=== PATIENT | female | born 1975 | race Two or more races ===

== ENCOUNTER → 2021-11-01 10:46 | Outpatient (BNVA) | payer MEDICAID, SELFPAY | PROVIDERS: PCP Family Medicine; Referring Provider Family Medicine; Visit Provider Physician Assistant Surgical | DX: Z13.89 Encounter for screening for other disorder (principal) ==

== ENCOUNTER → 2021-11-03 08:22 | Outpatient (BNVA) | payer MEDICAID, SELFPAY | PROVIDERS: PCP Family Medicine; Visit Provider Surgery | DX: Z13.89 Encounter for screening for other disorder (principal) ==

== ENCOUNTER → 2021-11-09 10:24 | Outpatient (BNVA) | payer MEDICAID, SELFPAY | PROVIDERS: PCP Family Medicine; Visit Provider Surgery | DX: Z01.818 Encounter for other preprocedural examination (principal); E66.01 Morbid (severe) obesity due to excess calories; E11.9 Type 2 diabetes mellitus without complications; I10 Essential (primary) hypertension; K21.9 Gastro-esophageal reflux disease without esophagitis; J45.909 Unspecified asthma, uncomplicated; Z68.42 Body mass index [BMI] 45.0-49.9, adult; Z79.4 Long term (current) use of insulin; Z79.84 Long term (current) use of oral hypoglycemic drugs | CPT/HCPCS: 99202 ==

== ENCOUNTER 2021-11-21 23:30 | Emergency (ER) | payer MEDICAID, SELFPAY ==
[2021-11-21 23:56] VITALS: BP 120/80; BP 142/92; PULSE 101; PULSE 89; RESP 22; TEMP 36.8; O2SAT 10; O2SAT 99; BMI 48.4
[2021-11-22 00:21] LABS: Hematocrit 41.8 % (37.0-47.0); Hemoglobin 13.9 g/dl (12.0-16.0); Mean Corpuscular HGB Conc 33.3 g/dl (31.0-35.0); Mean Corpuscular Hemoglobin 27.3 pg (27.0-33.0); Mean Platelet Volume 10.9 fL (9.4-12.3); Platelet Count 321 X10*3/uL (160-400); Red Cell Distribution Width 14.9 % (11.0-16.0); White Blood Count 10.5 X10*3/uL (4.8-10.8)
[2021-11-22 00:30] LABS: Appearance Urine CLOUDY; Color Urine YELLOW; Glucose Urine UA NEG (NEG); Leukocyte Esterase Urine NEG (NEG); Nitrite Urine POS (NEG); PH 5.5 (5.0-8.0); Specific Gravity - Urine >= 1.030 (1.005-1.025); UACC Culture Trigger YES; Urine Blood 2+ (NEG); Urine Ketones 5 MG/DL (NEG); Urine Protein 1+ MG/DL (NEG-TRACE)
[2021-11-22 00:36] LABS: Bacteria Urine 3+ /LPF; Mucus Urine 2+ /LPF; RBC Urine 0 /HPF (0); Squamous Epithelial Cell Urine 4+ /LPF; UACC CULT YES
[2021-11-22 00:37] LABS: Alanine Aminotransferase 45 U/L (0-31); Albumin Level 3.8 g/dL (3.5-5.0); Alkaline Phosphatase 92 U/L (39-117); Anion Gap 14 (12-20); Aspartate Amino Transferase 43 U/L (5-31); Bilirubin Total 0.4 mg/dL (0.0-1.0); Blood Urea Nitrogen 10 mg/dL (9-16); Calcium 9.9 mg/dL (8.4-10.2); Carbon Dioxide 28 mmol/L (22-29); Chloride 103 mmol/L (96-108); Creatinine Clr Calc Pharmacy 75.8; Estimated Glomerular Filt Rate > 60; Glucose Random 247 mg/dL (60-115); Potassium 3.9 mmol/L (3.3-5.1); Sodium 141 mmol/L (135-145); Total Protein 7.6 g/dL (6.5-8.0)
[2021-11-22 01:03] VITALS: BP 139/82; PULSE 81; RESP 19; O2SAT 97
--- NOTE | 2021-11-22 01:03 | ED_ITS ---
HPI - General Adult General Chief complaint: General Medical Stated complaint: right leg pain Time Seen by Provider: 11/22/21 00:01 Source: patient Mode of arrival: ambulatory Limitations: no limitations History of Present Illness HPI narrative: Patient diabetic with diabetic neuropathy on gabapentin 1200 mg 3 times a day comes here for his pain in the right leg similar to that in the past says gabapentin is not working. No significant swelling of the leg no fever no shortness of breath no cough no urinary complaints no nausea no vomiting patient denies any hematuria Related Data Home Medications Medication Instructions Recorded Confirmed alcohol swabs (Alcohol Prep Pads) 0 pad TOPICAL DIRECTED 11/01/21 11/09/21 blood sugar diagnostic (FreeStyle #10 ea 11/01/21 11/09/21 Lite Strips) blood-glucose meter (FreeStyle #1 ea 11/01/21 11/09/21 [place] Lite) clonazepam 0.5 mg tablet 0.5 mg PO DAILY 11/01/21 11/09/21 clonidine HCl 0.2 mg tablet 0.2 mg PO BID 11/01/21 11/09/21 doxazosin 1 mg tablet 2 mg PO DAILY 11/01/21 11/09/21 dulaglutide 1.5 mg/0.5 mL mg SUBCUT QWEEK 11/01/21 11/09/21 [facility] duloxetine 30 mg capsule,delayed 30 mg PO DAILY 11/01/21 11/09/21 release fluticasone propionate 110 2 puff PO BID 11/01/21 11/09/21 mcg/actuation HFA aerosol inhaler (Flovent HFA) folic acid 1 mg tablet 1 mg PO DAILY 11/01/21 11/09/21 gabapentin 600 mg tablet 1,200 mg PO TID 11/01/21 11/09/21 insulin glargine 100 unit/mL (3 unit SUBCUT 11/01/21 11/09/21 mL) subcutaneous pen (Lantus Solostar U-100 Insulin) levetiracetam 1,000 mg tablet 1,000 mg PO BID 11/01/21 11/09/21 lisinopril 40 mg tablet 40 mg PO DAILY 11/01/21 11/09/21 magnesium oxide 400 mg (241.3 mg 400 mg PO BID 11/01/21 11/09/21 magnesium) tablet melatonin 5 mg tablet 5 mg PO BEDTIME 11/01/21 11/09/21 metformin 1,000 mg tablet 1,000 mg PO BID 11/01/21 11/09/21 multivitamin-ferrous 1 tab PO QAM 11/01/21 11/09/21 fumarate-folic acid 18 mg-400 mcg tablet (Certavite-Antioxidant) omeprazole 20 mg capsule,delayed 20 mg PO DAILY 11/01/21 11/09/21 release omeprazole 20 mg capsule,delayed 20 mg PO DAILY 11/01/21 11/09/21 release pen needle, diabetic 31 gauge x #50 ea 11/01/21 11/09/21/ (Sure Comfort Pen Needle) ropinirole 0.5 mg tablet 0.5 mg PO BEDTIME 11/01/21 11/09/21 thiamine HCl (vitamin B1) 100 mg 100 mg PO DAILY 11/01/21 11/09/21 tablet insulin aspart U-100 100 unit/mL 5 unit SUBCUT TID 11/09/21 11/09/21 (3 mL) subcutaneous pen (Novolog Flexpen U-100 Insulin aspart) Previous Rx's Medication Instructions Recorded cefpodoxime 200 mg tablet 200 mg PO BID #14 tab 11/22/21 tramadol 50 mg tablet 50 mg PO Q6H PRN #20 tab 11/22/21 Allergies Allergy/AdvReac Type Severity Reaction Status Date / Time tomato [TOMATO] Allergy Unknown RASH Verified 11/09/21 14:34 Review of Systems Review of Systems: Yes all other systems are reviewed and are negative [facility] Past Medical History Medical History Anxiety Asthma Depression GERD (gastroesophageal reflux disease) Hx of completed stroke Hypertension Insomnia Insulin dependent type 2 diabetes mellitus Morbid obesity Neuropathy Restless leg syndrome Seizure Stroke Surgical History History of Family History Family History Mother Diabetes Father Diabetes Alcoholism Social History Social History Alcohol intake: former Patient Tobacco Use Status: Former Tobacco user Physical Exam ED Vital Signs: Vital Signs - 24 hr 11/21/21 23:56 11/22/21 01:03 Temperature 98.2 F Pulse Rate 89 81 Respiratory Rate 22 H 19 Blood Pressure 142/92 H 139/82 Pulse Oximetry 99 97 BMI result Body Mass Index 48.4 Appearance: Alert. Oriented X3. No acute distress. ENT: Pharynx normal. Oral Mucosa moist Neck: Normal inspection. Neck supple. CVS: Normal heart rate and rhythm. Pulses normal. Respiratory: No respiratory distress. Equal air entry bilateral, no wheezing/rales/rhonchi Abdomen: Soft and nontender. Bowel sounds are present, no mass palpable, no CVA tenderness Skin: Skin warm and dry. Normal skin color. Normal skin turgor. Extremities: trace lower extremity edema. No calf tenderness Neuro: Oriented X 3. No motor deficit. No sensory deficit.No cerebellar signs , cranial nerves II-XII intact Medical Decision Making MDM Narrative Medical decision making narrative: Patient with peripheral neuropathy secondary to diabetes on gabapentin comes here for right leg pain similar to that in the past will give her tramadol adversity and gabapentin. Patient also noticed to have UTI but she does not have any symptoms WBC count normal with started on cefpodoxime Lab Data Lab results reviewed: Yes I reviewed the patient's lab results. Result diagrams: 11/22/21 00:17 11/22/21 00:13 Labs: Lab Results 11/22/21 11/22/21 11/22/21 Range/Units 00:13 00:17 00:23 WBC 10.5 (4.8-10.8) X10*3/uL RBC 5.10 (4.20-5.50) X10*6/uL Hgb 13.9 (12.0-16.0) g/dl Hct 41.8 (37.0-47.0) % MCV 82.0 (80.0-98.0) fL MCH 27.3 (27.0-33.0) pg MCHC 33.3 (31.0-35.0) g/dl RDW 14.9 (11.0-16.0) % Plt Count 321 (160-400) X10*3/uL MPV 10.9 (9.4-12.3) fL Absolute Nucleated RBC 0.000 (0.0-0.012) X10*3/uL Nucleated RBC % (auto) 0.0 (0.0-0.2) /100WBC Sodium 141 (135-145) mmol/L Potassium 3.9 (3.3-5.1) mmol/L Chloride 103 (96-108) mmol/L Carbon Dioxide 28 (22-29) mmol/L Anion Gap 14 (12-20) BUN 10 (9-16) mg/dL Creatinine 0.92 (0.5-1.4) mg/dL Estim Creat Clear Calc 75.8 Estimated GFR > 60 Random Glucose 247 H (60-115) mg/dL Calcium 9.9 (8.4-10.2) mg/dL Total Bilirubin 0.4 (0.0-1.0) mg/dL AST 43 H (5-31) U/L ALT 45 H (0-31) U/L Alkaline Phosphatase 92 (39-117) U/L Total Protein 7.6 (6.5-8.0) g/dL Albumin 3.8 (3.5-5.0) g/dL Urine Color YELLOW Urine Appearance CLOUDY Urine pH 5.5 (5.0-8.0) Ur Specific [place] >= 1.030 H (1.005-1.025) Urine Protein 1+ H (NEG-TRACE) MG/DL Urine Glucose (UA) NEG (NEG) MG/DL Urine Ketones 5 (NEG) MG/DL Urine Blood 2+ H (NEG) Urine Nitrite POS H (NEG) Ur Leukocyte Esterase NEG (NEG) Urine RBC 0 (0) /HPF Urine WBC 10-14 H (0-4) /HPF Ur Squamous Epith Cells 4+ /LPF Urine Bacteria 3+ /LPF Urine Mucus 2+ /LPF Discharge Plan Discharge Clinical Impression: Neuropathy, UTI (urinary tract infection) Patient Disposition: Home, Self-Care Instructions: Urinary Tract Infection in Women (DC), Peripheral Neuropathy (ED) Additional Instructions: Continue to take your gabapentin Start taking tramadol for severe pain Drink plenty of fluids and start taking antibiotic for UTI Follow your PCP Prescriptions: New cefpodoxime 200 mg tablet 200 mg PO BID Qty: 14 0RF Rx Instructions: must administer with a meal/food tramadol 50 mg tablet 50 mg PO Q6H PRN (Reason: pain) Qty: 20 0RF No Action insulin aspart U-100 [Novolog Flexpen U-100 Insulin] 100 unit/mL (3 mL) insulin pen 5 unit subcut TID 0RF omeprazole 20 mg capsule,delayed release(DR/EC) 20 mg PO DAILY 0RF (DME) blood-glucose meter [FreeStyle [place] Lite] Kit See Rx Instructions ea Not Applicable DAILY Qty: 1 0RF Rx Instructions: As directed levetiracetam 1,000 mg tablet 1,000 mg PO BID 0RF omeprazole 20 mg capsule,delayed release(DR/EC) 20 mg PO DAILY 0RF thiamine HCl (vitamin B1) 100 mg tablet 100 mg PO DAILY 0RF doxazosin 1 mg tablet 2 mg PO DAILY 0RF (DME) FreeStyle Lite Strips Strip See Rx Instructions ea Not Applicable TID Qty: 10 0RF Rx Instructions: As directed Lantus Solostar U-100 Insulin 100 unit/mL (3 mL) insulin pen subcut 0RF duloxetine 30 mg capsule,delayed release(DR/EC) 30 mg PO DAILY 0RF alcohol swabs [Alcohol Prep Pads] Pads, Medicated 0 pad topical DIRECTED 0RF magnesium oxide 400 mg (241.3 mg magnesium) tablet 400 mg PO BID 0RF Certavite-Antioxidant 18-400 mg-mcg tablet 1 tab PO QAM 0RF folic acid 1 mg tablet 1 mg PO DAILY 0RF Trulicity 1.5 mg/0.5 mL pen injector subcut QWEEK 0RF clonidine HCl 0.2 mg tablet 0.2 mg PO BID 0RF melatonin 5 mg tablet 5 mg PO BEDTIME 0RF ropinirole 0.5 mg tablet 0.5 mg PO BEDTIME 0RF Flovent HFA 110 mcg/actuation HFA aerosol inhaler 2 puff PO BID 0RF lisinopril 40 mg tablet 40 mg PO DAILY 0RF metformin 1,000 mg tablet 1,000 mg PO BID 0RF gabapentin 600 mg tablet 1,200 mg PO TID 0RF clonazepam 0.5 mg tablet 0.5 mg PO DAILY 0RF (DME) pen needle, diabetic [Sure Comfort Pen Needle] 31 gauge x 3/16 needle See Rx Instructions ea .ROUTE BID Qty: 50 0RF Rx Instructions: As directed
[2021-11-22] MEDS: oxyCODONE HCl Immed Release 5 MG TABLET 10 MG PO (01:29)
[2021-11-22 04:25] VITALS: BP 144/91; PULSE 78; RESP 16; TEMP 36.6; O2SAT 98
[2021-11-22 06:02] VITALS: BP 128/79; PULSE 81; RESP 15; O2SAT 95
== END 2021-11-22 09:10 | disposition home or self-care (01) ==
LOC: HO.ED 11-22 01:37
PROVIDERS: Emergency Provider Internal Medicine; PCP Family Medicine
DX: E11.42 Type 2 diabetes mellitus with diabetic polyneuropathy (principal); N39.0 Urinary tract infection, site not specified; I10 Essential (primary) hypertension; J45.909 Unspecified asthma, uncomplicated; Z86.73 Personal history of transient ischemic attack (TIA), and cerebral infarction without residual deficits; Z79.899 Other long term (current) drug therapy
CPT/HCPCS: 36415; 80053; 81001; 85027; 87086; 99283; 99284

== ENCOUNTER 2021-11-27 10:13 | Outpatient (REF) | payer MEDICAID, SELFPAY ==
--- NOTE | ~2021-11-27 | XR_ITS ---
EXAMINATION: XR CHEST CLINICAL INFORMATION: Moderate obesity due to excess calories. COMPARISON: None TECHNIQUE: 2 views of the chest were obtained. FINDINGS: The lungs are fairly well-expanded and clear of acute process. The heart size and pulmonary vascularity is normal. There is mild spondylosis mid dorsal spine. No lytic process. XR/XR chest 2V IMPRESSION: Unremarkable chest exam.
--- NOTE | 2021-11-27 10:33 | ECG_ITS ---
Test Reason : OBESITY Blood Pressure : / mmHG Vent. Rate : 078 BPM Atrial Rate : 078 BPM P-R Int : 160 ms QRS Dur : 090 ms QT Int : 390 ms P-R-T Axes : 044 017 000 degrees QTc Int : 444 ms Sinus rhythm with occasional Premature ventricular complexes Otherwise normal ECG When compared with ECG of 31-OCT-2017 16:32, Premature ventricular complexes are now Present Referred By: Ryan Hitchcock Electronically Signed By:NIGHAT COLEMAN MD
[2021-11-27 10:41] LABS: MANUAL DIFF FLAG NO
[2021-11-27 11:08] LABS: Basophils Absolute Auto 0.1 X10*3/uL (0.0-0.2); Basophils Percent Auto 0.8 % (0-2); Eosinophils Absolute Auto 0.2 X10*3/uL (0.0-0.4); Eosinophils Percent Auto 1.9 % (0-4); Hematocrit 40.2 % (37.0-47.0); Hemoglobin 12.9 g/dl (12.0-16.0); Imm Gran Abs Auto 0.05 X10*3/uL (0.00-0.03); Imm Gran Pct Auto 0.6 % (0.0-0.4); Lymphocytes Absolute Auto 2.7 X10*3/uL (1.2-4.9); Lymphocytes Percent Auto 31.5 % (20-40); Mean Corpuscular HGB Conc 32.1 g/dl (31.0-35.0); Mean Corpuscular Hemoglobin 27.2 pg (27.0-33.0); Mean Corpuscular Volume 84.6 fL (80.0-98.0); Mean Platelet Volume 11.6 fL (9.4-12.3); Monocytes Absolute Auto 0.5 X10*3/uL (0.1-1.2); Monocytes Percent Auto 5.9 % (2-11); Neutrophils Percent Auto 59.3 % (45-73); Platelet Count 308 X10*3/uL (160-400); Red Blood Count 4.75 X10*6/uL (4.20-5.50); Red Cell Distribution Width 14.9 % (11.0-16.0); White Blood Count 8.5 X10*3/uL (4.8-10.8)
[2021-11-27 11:19] LABS: Estimated Average Glucose 183 mg/dL
[2021-11-27 11:47] LABS: Alanine Aminotransferase 36 U/L (0-31); Albumin Level 3.6 g/dL (3.5-5.0); Alkaline Phosphatase 101 U/L (39-117); Anion Gap 12 (12-20); Aspartate Amino Transferase 41 U/L (5-31); Bilirubin Total 0.2 mg/dL (0.0-1.0); Blood Urea Nitrogen 11 mg/dL (9-16); C Reactive Protein 2.05 mg/dL (< or = 0.50); Carbon Dioxide 25 mmol/L (22-29); Chloride 106 mmol/L (96-108); Cholesterol 142 mg/dL; Estimated Glomerular Filt Rate > 60; Glucose Random 196 mg/dL (60-115); HDL Cholesterol 41 mg/dL; Iron 73 mcg/dL (30-160); LDL Cholesterol Calculated 77 mg/dl; Percent Iron Saturation 26 % (15-50); Potassium 4.2 mmol/L (3.3-5.1); Sodium 139 mmol/L (135-145); Total Iron Binding Capacity 280 mcg/dL (228-428); Total Protein 7.1 g/dL (6.5-8.0); Triglycerides 124 mg/dL; Unsaturated Iron Binding 207 ug/dL
[2021-11-27 12:01] LABS: Ferritin 36 ng/mL (10-250); TSH reflex Free T4 0.58 uIU/mL (0.32-4.0)
[2021-11-27 12:21] LABS: Folate > 20.0 ng/mL (> or = 4.0); Vitamin B12 662 pg/mL (200-900)
[2021-11-27 12:35] LABS: Insulin 101 uU/mL (2-29)
[2021-11-28 12:42] LABS: Calcium (PTHI) 8.7 mg/dL (8.6-10.2); PTHI 64 pg/mL (16-77)
[2021-11-30 06:12] LABS: Zinc 54 mcg/dL (60-130)
[2021-11-30 19:42] LABS: Vitamin A 32 mcg/dL (38-98)
[2021-12-02 12:20] LABS: Vitamin B1 123 nmol/L (8-30)
== END 2021-11-27 10:14 | disposition home or self-care (01) ==
LOC: HO.XRAY 10:13
PROVIDERS: PCP Family Medicine; Visit Provider Surgery
DX: Z01.818 Encounter for other preprocedural examination (principal); E66.01 Morbid (severe) obesity due to excess calories; K21.9 Gastro-esophageal reflux disease without esophagitis; E11.9 Type 2 diabetes mellitus without complications; I10 Essential (primary) hypertension; I63.9 Cerebral infarction, unspecified; J45.909 Unspecified asthma, uncomplicated; Z79.4 Long term (current) use of insulin
CPT/HCPCS: 36415; 71046; 80053; 80061; 82306; 82607; 82728; 82746; 83036; 83525; 83540; 83970; 84425; 84443; 84590; 84630; 85025; 86140; 93005

== ENCOUNTER → 2021-12-08 07:58 | Outpatient (BNVA) | payer MEDICAID, SELFPAY | PROVIDERS: PCP Family Medicine; Visit Provider Dietitian, Registered | DX: Z13.89 Encounter for screening for other disorder (principal) ==

== ENCOUNTER → 2021-12-12 11:00 | Outpatient (BNVA) | payer OTHER, SELFPAY | PROVIDERS: PCP Family Medicine; Visit Provider Counselor Mental Health | DX: F50.81 Binge eating disorder (principal); F32.9 Major depressive disorder, single episode, unspecified; E66.01 Morbid (severe) obesity due to excess calories | CPT/HCPCS: 90791 ==

== ENCOUNTER 2022-04-02 04:15 | Inpatient (IN) | payer MEDICAID, SELFPAY ==
[2022-04-02] VITALS (8 sets, daily range): BP systolic 135–177; BP diastolic 77–99; PULSE 72–89; RESP 13–20; TEMP 36.7–37; O2SAT 96–100; BMI 49.3
--- NOTE | ~2022-04-02 | NM_ITS ---
EXAMINATION: BILIARY TRACT IMAGING STUDY CLINICAL INFORMATION: Right upper quadrant pain, abnormal ultrasound.. COMPARISON: No previous biliary scan is available for comparison. Abdominal ultrasound and CT scan of the abdomen and pelvis, both dated 04/02/2022, the same date as this biliary scan are available for comparison.. TECHNIQUE: Serial gamma scintillation camera images were obtained over the abdomen for a total observation period of 5 hours following the intravenous administration of 4.8 mCi Tc-99m Mebrofenin. FINDINGS: There is good concentration of activity in the liver by 5 minutes post injection. There is no visualization of biliary activity during the initial 60 minutes. Subsequently, there is visualization of progressively increasing small bowel activity during an additional hour of imaging which was begun approximately 90 minutes post injection. At the end of this time, approximately 2.5 hours post injection diffuse small bowel activity is visualized but there is abnormal diffuse retention of activity in the liver. Delayed images obtained at 5 hours post injection show good visualization of activity in the gallbladder and diffuse small bowel activity but continued persistence of activity within the liver diffusely. NM/NM hepatobiliary wo pharm IMPRESSION: Visualization the gallbladder is evidence of a patent cystic duct and strong evidence against the diagnosis of acute cholecystitis. However, the very late visualization of the gallbladder, well after more than 2 hours postinjection is abnormal and most likely due to chronic cholecystitis. The common bile duct is patent. Delayed visualization of biliary activity as well as prolonged retention of activity in the liver are abnormal and most likely due to diffuse hepatocellular disease.
--- NOTE | ~2022-04-02 | US_ITS ---
EXAMINATION: US ABDOMEN LIMITED CLINICAL INFORMATION: Right upper quadrant pain. COMPARISON: CT abdomen pelvis 10/31/2017 TECHNIQUE: Real-time imaging of the right upper quadrant abdominal viscera. FINDINGS: PANCREAS: Visualized portions of pancreas are normal in appearance. LIVER: The liver is normal in size. The liver contour is normal. Liver echogenicity is increased diffusely.No focal hepatic lesion. There is no intrahepatic biliary duct dilatation seen. GALLBLADDER: The gallbladder appears contracted around numerous gallstones. Shadowing from gallstones significantly limited evaluation of the gallbladder. No definitive gallbladder wall thickening or pericholecystic fluid is appreciated. Technologist does however report a positive sonographic Carpenter's sign. COMMON BILE DUCT: Normal in caliber measuring 0.4 cm in diameter. RIGHT KIDNEY: Normal. No hydronephrosis. No renal calculi or focal parenchymal lesions. The kidney measures 12.4 cm in maximum dimension. FREE FLUID: None. US/US abdomen limited IMPRESSION: Cholelithiasis in this setting of a positive sonographic Carpenter's sign. Visualization of the gallbladder is limited given shadowing from gallstones. Nonetheless, acute cholecystitis would be within the differential. Clinical correlation is recommended. HIDA imaging may be warranted.
--- NOTE | ~2022-04-02 | CT_ITS ---
EXAMINATION: CT ABDOMEN AND PELVIS WITHOUT CONTRAST CLINICAL INFORMATION: Upper abdominal pain COMPARISON: 10/31/2017 TECHNIQUE: Multidetector volumetric imaging was performed from the lung bases through the pubic symphysis. Sagittal and coronal reformatted images were obtained on the technologist workstation. This CT examination was performed using dose optimization techniques as appropriate, variously including the following: *Automated exposure control *Adjustment of mA and/or kV according to patient size (this includes techniques or standardized protocols for targeted exams where dose is matched to indication/reason for exam; i.e. extremities or head) *Use of iterative reconstruction technique FINDINGS: The lack of intravenous contrast limits evaluation of the solid visceral organs including the liver, spleen, pancreas, and kidneys. LUNG BASES: The visualized lung bases are unremarkable. LIVER, GALLBLADDER, AND BILIARY TREE: Limited non-contrast evaluation is normal. No gross focal hepatic lesion. Normal liver size and contour. No gross biliary ductal dilation. The gallbladder is unremarkable with no evidence of radiopaque gallstones, gallbladder wall thickening, or obvious pericholecystic inflammatory changes. PANCREAS: Limited non-contrast evaluation is normal. No antonieta-pancreatic fluid. SPLEEN: Limited non-contrast evaluation is normal. ADRENAL GLANDS: Normal; no adrenal mass. KIDNEYS AND URETERS: Punctate 1 mm nonobstructing right mid renal calculus in image [id number]. No hydronephrosis or hydroureter bilaterally. GASTROINTESTINAL TRACT: Small bowel and colon are non-dilated. No bowel wall thickening. No pericolonic inflammatory changes to suggest colitis or diverticulitis. Normal appendix. ABDOMINAL WALL: Small fat-containing umbilical hernia. LYMPH NODES: No pathologically enlarged lymph nodes in the abdomen or pelvis. VASCULAR: Normal caliber abdominal aorta. BLADDER: Unremarkable. PELVIC VISCERA: Unremarkable. OSSEOUS STRUCTURES: No acute or suspicious osseous abnormalities. Intraosseous hemangioma in the posterior aspect of L5. Vacuum disc phenomenon at L5-S1. Likely degenerative endplate sclerosis of the superior aspect of S1. The appearance is similar to 2018. CT/CT abdomen pelvis wo IV con IMPRESSION: No acute CT findings.
[2022-04-02 05:21] LABS: Hematocrit 43.5 % (37.0-47.0); Hemoglobin 14.4 g/dl (12.0-16.0); Mean Corpuscular HGB Conc 33.1 g/dl (31.0-35.0); Mean Corpuscular Hemoglobin 26.5 pg (27.0-33.0); Mean Corpuscular Volume 80.1 fL (80.0-98.0); Mean Platelet Volume 10.9 fL (9.4-12.3); Platelet Count 337 X10*3/uL (160-400); Red Blood Count 5.43 X10*6/uL (4.20-5.50); Red Cell Distribution Width 15.2 % (11.0-16.0); White Blood Count 8.7 X10*3/uL (4.8-10.8)
[2022-04-02 05:46] LABS: Alanine Aminotransferase 218 U/L (0-31); Albumin Level 3.9 g/dL (3.5-5.0); Alkaline Phosphatase 295 U/L (39-117); Anion Gap 16 (12-20); Aspartate Amino Transferase 343 U/L (5-31); Bilirubin Direct 1.6 mg/dL (0.0-0.5); Bilirubin Total 2.4 mg/dL (0.0-1.0); Blood Urea Nitrogen 9 mg/dL (9-16); Calcium 8.8 mg/dL (8.4-10.2); Carbon Dioxide 25 mmol/L (22-29); Chloride 100 mmol/L (96-108); Creatinine Clr Calc Pharmacy 93.2; Estimated Glomerular Filt Rate > 60; Glucose Random 273 mg/dL (60-115); Lipase 89 U/L (8-78); Potassium 3.7 mmol/L (3.3-5.1); Sodium 137 mmol/L (135-145); Total Protein 7.6 g/dL (6.5-8.0)
--- NOTE | 2022-04-02 07:40 | ED.ABDPAIN ---
HPI - Abdominal Pain General Chief Complaint: Abdominal Pain Stated Complaint: abd pain Time Seen by Provider: 04/02/22 07:38 Source: patient and EMS Mode of arrival: EMS Limitations: no limitations History of Present Illness HPI narrative: 46-year-old female came in for evaluation of upper abdominal pain for 3 days. Pain is mostly localized to the upper abdomen in the epigastric/right upper quadrant radiates around the upper abdomen to the back, pain is severe 10/10 it started 2 days ago patient do not report greasy or fatty meal, pain has been constant described as dull aching pain, food makes the pain worse nothing make it better, no fever, no chills, never had intra-abdominal surgery but previous multiple C-sections. Related Data Home Medications Medication Instructions Recorded Confirmed blood sugar diagnostic (FreeStyle #10 ea 11/01/21 11/09/21 Lite Strips) blood-glucose meter (FreeStyle #1 ea 11/01/21 11/09/21 [place] Lite kit) clonazepam 0.5 mg tablet 0.5 mg PO DAILY 11/01/21 11/09/21 clonidine HCl 0.2 mg tablet 0.2 mg PO BID 11/01/21 11/09/21 doxazosin 1 mg tablet 2 mg PO DAILY 11/01/21 11/09/21 dulaglutide 1.5 mg/0.5 mL 1.5 mg subcut QWEEK 11/01/21 11/09/21 subcutaneous pen injector (Trulicity) duloxetine 30 mg capsule,delayed 30 mg PO DAILY 11/01/21 11/09/21 release fluticasone propionate 110 2 puff PO BID 11/01/21 11/09/21 mcg/actuation HFA aerosol inhaler (Flovent HFA) folic acid 1 mg tablet 1 mg PO DAILY 11/01/21 11/09/21 gabapentin 600 mg tablet 1,200 mg PO TID 11/01/21 11/09/21 levetiracetam 1,000 mg tablet 1,000 mg PO BID 11/01/21 11/09/21 lisinopril 40 mg tablet 40 mg PO DAILY 11/01/21 11/09/21 magnesium oxide 400 mg (241.3 mg 400 mg PO BID 11/01/21 11/09/21 magnesium) tablet melatonin 5 mg tablet 5 mg PO BEDTIME 11/01/21 11/09/21 metformin 1,000 mg tablet 1,000 mg PO BID 11/01/21 11/09/21 omeprazole 20 mg capsule,delayed 20 mg PO DAILY 11/01/21 11/09/21 release pen needle, diabetic 31 gauge x #50 ea 11/01/21 11/09/21 3/16 (Sure Comfort Pen Needle) ropinirole 0.5 mg tablet 0.5 mg PO BEDTIME 11/01/21 11/09/21 thiamine HCl (vitamin B1) 100 mg 100 mg PO DAILY 11/01/21 11/09/21 tablet cyclobenzaprine 10 mg tablet 1 tab PO TID PRN muscle spasm 04/02/22 duloxetine 60 mg capsule,delayed 1 cap PO DAILY 04/02/22 release insulin lispro 100 unit/mL See Protocol subcut TID 04/02/22 subcutaneous pen multivitamin 1 tab PO DAILY 04/02/22 Allergies Allergy/AdvReac Type Severity Reaction Status Date / Time tomato [TOMATO] Allergy Unknown RASH Verified 11/09/21 14:34 Review of Systems Review of Systems All other systems are reviewed and are negative Constitutional: Reports as per HPI and Reports no additional constitutional complaints Eyes: Reports as per HPI and Reports no additional eye complaints Reports system reviewed and no additional complaints, except as documented Cardiovascular: Reports as per HPI and Reports no additional cardiovascular complaints Respiratory: Reports as per HPI and Reports no additional respiratory complaints Gastrointestinal: Reports as per HPI and Reports no additional gastrointestinal complaints Genitourinary: Reports no additional female genitourinary complaints Musculoskeletal: Reports no additional musculoskeletal complaints Skin/Breast: Reports system reviewed and no additional complaints, except as docu Psychiatric: Reports no additional psychiatric complaints Endocrine: Reports no additional endocrine complaints Hematologic/Lymphatic: Reports no additional hematologic/lymphatic complaints Allergic/Immunologic: Reports no additional allergic/immunologic complaints Reports system reviewed and no additional complaints, except as documented and Reports Abnormal speech present [facility] Past Medical History Medical History Anxiety Asthma Depression GERD (gastroesophageal reflux disease) Hx of completed stroke Hypertension Insomnia Insulin dependent type 2 diabetes mellitus Morbid obesity Neuropathy Restless leg syndrome Seizure Stroke Surgical History History of Family History Family History Mother Diabetes Father Diabetes Alcoholism Social History Social History Alcohol intake: former Patient Tobacco Use Status: Former Tobacco user Advance Directives: No Advance Directives Information Provided: Yes Physical Exam ED Vital Signs: Vital Signs - 24 hr 04/02/22 04:34 04/02/22 07:28 04/02/22 07:51 Temperature 98.0 F 98.6 F Pulse Rate 83 89 Respiratory Rate 20 13 17 Blood Pressure 177/99 H 144/87 H Pulse Oximetry 100 99 Oxygen Delivery Method Room Air Room Air 04/02/22 13:23 Temperature Pulse Rate 80 Respiratory Rate 20 Blood Pressure 135/86 Pulse Oximetry 98 Oxygen Delivery Method Room Air BMI result Body Mass Index 49.3 Vital signs have been reviewed as appeared to be correct. Blood pressure normal. Heart rate normal. Respiration rate normal. Temperature normal. Oxygen saturation normal. Appearance: Alert. Oriented X3. No acute distress. Head: Normal external exam. Normocephalic. Atraumatic. No Segura signs noted. No raccoon eyes noted Eyes: PERRLA. EOMI. Conjunctiva and sclera normal. Eyelids normal. ENT: TM's Normal. Pharynx normal. Uvula midline. Moist mucous membranes. No trismus noted. No drooling noted. No muffled voice noted. Neck: Normal inspection. Neck supple. FROM. No adenopathy. Thyroid Normal. No meningeal signs. No neck mass noted. CVS: Normal heart rate and rhythm. Heart sound normal. No murmurs noted. Pulses normal throughout. Respiratory: No respiratory distress. Painless inspiration. Breath sounds normal. No wheezes/rales/rhonchi noted. Chest nontender. No accessory muscle usage noted or decreased air movement noted. Abdomen: Soft and nontender. Bowel sounds normal in all 4 quadrants. No distention noted. No organomegaly noted. No visible injury noted. Back: No CVA tenderness. Full range of motion noted. Skin: Skin warm and dry. Normal skin color. Normal skin turgor. No rashes/lesions/lacerations noted. Extremities: No lower extremity edema. Extremities exhibit normal range of motion. Extremities nontender. Neuro: Oriented X 3. Cranial nerve exam: II-XII are grossly intact No motor deficit. No sensory deficit. Reflexes normal. Course Course Course Narrative: Assessment and plan. 46-year-old female came in with right upper quadrant tenderness physical exam and ancillary testing consistent with acute cholecystitis and cholelithiasis, patient received IV fluid/morphine/Zosyn, surgical consultation was obtained in the ED recommended to hospitalize the patient for further acute cholecystitis management. UA is also showing a UTI. MDM - Abdominal Pain Medical Records Attestation: I reviewed the patient's medical records. Lab Data Attestation: I reviewed the patient's lab results. Result diagrams: 04/02/22 05:16 04/02/22 05:16 Labs: Lab Results 04/02/22 04/02/22 04/02/22 Range/Units 05:16 05:16 08:26 WBC 8.7 (4.8-10.8) X10*3/uL RBC 5.43 (4.20-5.50) X10*6/uL Hgb 14.4 (12.0-16.0) g/dl Hct 43.5 (37.0-47.0) % MCV 80.1 (80.0-98.0) fL MCH 26.5 L (27.0-33.0) pg MCHC 33.1 (31.0-35.0) g/dl RDW 15.2 (11.0-16.0) % Plt Count 337 (160-400) X10*3/uL MPV 10.9 (9.4-12.3) fL Absolute Nucleated RBC 0.000 (0.0-0.012) X10*3/uL Nucleated RBC % (auto) 0.0 (0.0-0.2) /100WBC Sodium 137 (135-145) mmol/L Potassium 3.7 (3.3-5.1) mmol/L Chloride 100 (96-108) mmol/L Carbon Dioxide 25 (22-29) mmol/L Anion Gap 16 (12-20) BUN 9 (9-16) mg/dL Creatinine 0.75 (0.5-1.4) mg/dL Estim Creat Clear Calc 93.2 Estimated GFR > 60 Random Glucose 273 H (60-115) mg/dL Calcium 8.8 (8.4-10.2) mg/dL Total Bilirubin 2.4 H (0.0-1.0) mg/dL Direct Bilirubin 1.6 H (0.0-0.5) mg/dL AST 343 H (5-31) U/L ALT 218 H (0-31) U/L Alkaline Phosphatase 295 H D (39-117) U/L Total Protein 7.6 (6.5-8.0) g/dL Albumin 3.9 (3.5-5.0) g/dL Lipase 89 H (8-78) U/L Urine Color Dark Yellow Urine Appearance Clear Urine pH 6.0 (5.0-9.0) Ur Specific [place] >= 1.030 H (1.005-1.025) Urine Protein 30 (1+) H (Neg-Trace) mg/dL Urine Glucose (UA) >=1000 H (Negative) mg/dL Urine Ketones Trace (Negative) mg/dL Urine Blood Moderate (2+) H (Negative) Urine Nitrite Negative (Negative) Ur Leukocyte Esterase Trace H (Negative) Urine RBC 3-5 H (0-2) /HPF Urine WBC 21-50 H (0-5) /HPF Ur Squamous Epith Cells 11-20 (0-2) /HPF Urine Bacteria 4+ (None Seen) Hyaline Casts 0-2 (0-2) /LPF Urine Test (NEGATIVE) 04/02/22 Range/Units 08:26 WBC (4.8-10.8) X10*3/uL RBC (4.20-5.50) X10*6/uL Hgb (12.0-16.0) g/dl Hct (37.0-47.0) % MCV (80.0-98.0) fL MCH (27.0-33.0) pg MCHC (31.0-35.0) g/dl RDW (11.0-16.0) % Plt Count (160-400) X10*3/uL MPV (9.4-12.3) fL Absolute Nucleated RBC (0.0-0.012) X10*3/uL Nucleated RBC % (auto) (0.0-0.2) /100WBC Sodium (135-145) mmol/L Potassium (3.3-5.1) mmol/L Chloride (96-108) mmol/L Carbon Dioxide (22-29) mmol/L Anion Gap (12-20) BUN (9-16) mg/dL Creatinine (0.5-1.4) mg/dL Estim Creat Clear Calc Estimated GFR Random Glucose (60-115) mg/dL Calcium (8.4-10.2) mg/dL Total Bilirubin (0.0-1.0) mg/dL Direct Bilirubin (0.0-0.5) mg/dL AST (5-31) U/L ALT (0-31) U/L Alkaline Phosphatase (39-117) U/L Total Protein (6.5-8.0) g/dL Albumin (3.5-5.0) g/dL Lipase (8-78) U/L Urine Color Urine Appearance Urine pH (5.0-9.0) Ur Specific [place] (1.005-1.025) Urine Protein (Neg-Trace) mg/dL Urine Glucose (UA) (Negative) mg/dL Urine Ketones (Negative) mg/dL Urine Blood (Negative) Urine Nitrite (Negative) Ur Leukocyte Esterase (Negative) Urine RBC (0-2) /HPF Urine WBC (0-5) /HPF Ur Squamous Epith Cells (0-2) /HPF Urine Bacteria (None Seen) Hyaline Casts (0-2) /LPF Urine Test NEGATIVE (NEGATIVE) Imaging Data Abdominal ultrasound: Attestation: I personally reviewed and interpreted this imaging study as follows: Radiologist's impression: Cholelithiasis in this setting of a positive sonographic Crapenter's sign. Visualization of the gallbladder is limited given shadowing from gallstones. Nonetheless, acute cholecystitis would be within the differential. Clinical correlation is recommended. HIDA imaging may be warranted. Abdomen pelvis CT: Attestation: I personally reviewed and interpreted this imaging study as follows: Radiologist's impression: No acute intra-abdominal pathology. Discharge Plan Discharge Clinical Impression: Abdominal pain, Cholecystitis, acute with cholelithiasis Patient Disposition: Admitted As Inpatient
[2022-04-02] MEDS: Morphine Sulfate 2 MG/ML CARTRIDGE IVPUSH (07:51)
[2022-04-02] MEDS: Famotidine/PF 20 MG/2 ML VIAL IVPUSH (07:52)
[2022-04-02] MEDS: Ketorolac Tromethamine 15 MG/ML VIAL IVPUSH (07:52)
[2022-04-02] MEDS: Magnesium Hydrox/Alum Hydrox 30 ML ORAL.SUSP PO (07:52)
[2022-04-02] MEDS: 0.9 % Sodium Chloride 1,000 ML 999 ML IV (07:55)
[2022-04-02 08:41] LABS: Appearance Urine Clear; Color Urine Dark Yellow; Glucose Urine UA >=1000 mg/dL (Negative); Leukocyte Esterase Urine Trace (Negative); Nitrite Urine Negative (Negative); Specific Gravity - Urine >= 1.030 (1.005-1.025); Urine Blood Moderate (2+) (Negative); Urine Ketones Trace mg/dL (Negative); Urine Protein 30 (1+) mg/dL (Neg-Trace)
[2022-04-02 08:42] LABS: UPreg QC Valid YES; Urine Pregnancy NEGATIVE (NEGATIVE)
[2022-04-02 08:58] LABS: Bacteria Urine 4+ (None Seen); Hyaline Casts Urine 0-2 /LPF (0-2); WBC Urine 21-50 /HPF (0-5)
[2022-04-02 09:00] LABS: UACC Culture Trigger YES
[2022-04-02] MEDS: Morphine Sulfate 2 MG/ML CARTRIDGE 1 MG IVPUSH (13:56)
--- NOTE | 2022-04-02 14:15 | PC.NURSE ---
Antibiotic started late due to patient being in nuclear medicine and blood cultures needing to be drawn
--- NOTE | 2022-04-02 14:23 | P.HPGS_ITS ---
History of Present Illness History of Present Illness Date of Service: 04/02/22 Chief complaint: abd pain Narrative: Yesika Farr is a 46 year old female presenting with complaints of epigastric, right upper quadrant and back pain which began Saturday03/30/2022. The pain began approximately 1 hour after eating beans, rice and broiled chicken. She denies a previous history of similar pain. The pain was not associated with fever, chills, nausea, vomiting, diarrhea, or constipation. She is and has undergone 4 previous Caesarean sections. She had 1 miscarriage. Workup in the emergency department revealed normal WBC but markedly elevated liver functions including bilirubins. Ultrasound of the abdomen revealed a gallbladder with multiple gallstones with evidence of acute cholecystitis. Patient is admitted to the surgical service for further management of acute cholecystitis. Review of Systems Review of Systems: Yes all other systems are reviewed and are negative Constitutional: Constitutional: Denies chills, Reports fatigue, Denies fever(s) and Denies poor appetite Cardiovascular: Cardiovascular: Denies chest pain, Denies irregular heart rhythm, Denies palpitations and Denies dyspnea Respiratory: Respiratory: Denies chest congestion, Denies cough and Denies dyspnea Gastrointestinal: Gastrointestinal: Reports as per HPI, Reports abdominal pain, Denies constipation, Denies diarrhea, Denies nausea and Denies vomiting Musculoskeletal: Musculoskeletal: Reports abnormal gait Neurologic: Reports abnormal gait Comments: Right-sided weakness following stroke Endocrine: Endocrine: Reports fatigue and Denies palpitations PMFSH Past Medical History Medical History Anxiety Asthma Depression GERD (gastroesophageal reflux disease) Hx of completed stroke Hypertension Insomnia Insulin dependent type 2 diabetes mellitus Morbid obesity Neuropathy Restless leg syndrome Seizure Stroke Family History Family History Mother Diabetes Father Diabetes Alcoholism Surgical History Surgical History History of Social History Social History Alcohol intake: former Patient Tobacco Use Status: Former Tobacco user Advance Directives: No Advance Directives Information Provided: Yes Meds Allergies Allergy/AdvReac Type Severity Reaction Status Date / Time tomato [TOMATO] Allergy Unknown RASH Verified 11/09/21 14:34 Active Medications: Current Medications Acetaminophen (Acetaminophen 325 Mg Tablet) 650 mg PO Q6H PRN PRN Reason: Pain, Mild (Pain Scale 1-3) Docusate Sodium (Docusate Sodium 100 Mg Capsule) 100 mg PO BID [place] Enoxaparin Sodium (Enoxaparin Sodium 40 Mg/0.4 Ml Syringe) 40 mg SUBCUT Q24H [place] Hydromorphone HCl (Hydromorphone Hcl 0.5 Mg/0.5 Ml Syringe) 0.5 mg IVPUSH Q4H PRN; Protocol PRN Reason: Pain, Severe (Pain Scale 7-10) Lactated Ringer's (Lr) 1,000 mls @ 100 mls/hr IVCONT .Q10H [place] Piperacillin Sod/Tazobactam (Sod 3.375 gm/ Sodium Chloride) 50 mls @ 100 mls/hr IV Q6H [place] Ondansetron HCl (Ondansetron Hcl 4 Mg/2 Ml Vial) 4 mg IVPUSH QID PRN PRN Reason: Nausea Oxycodone HCl (Oxycodone Hcl Immed Release 5 Mg Tablet) 5 mg PO Q6H PRN PRN Reason: Pain, Moderate (Pain Scale 4-6 Sodium Chloride (0.9 % Sodium Chloride Flush 3 Ml Syringe) 3 ml IVFLUSH QSHIFT [facility] Home Medications Medication Instructions Recorded Confirmed Last Taken Type blood sugar diagnostic (FreeStyle #10 ea 11/01/21 11/09/21 Unknown History Lite Strips) blood-glucose meter (FreeStyle #1 ea 11/01/21 11/09/21 Unknown History [place] Lite kit) clonazepam 0.5 mg tablet 0.5 mg PO DAILY 11/01/21 11/09/21 Unknown History clonidine HCl 0.2 mg tablet 0.2 mg PO BID 11/01/21 11/09/21 Unknown History doxazosin 1 mg tablet 2 mg PO DAILY 11/01/21 11/09/21 Unknown History dulaglutide 1.5 mg/0.5 mL mg subcut QWEEK 11/01/21 11/09/21 Unknown History subcutaneous pen injector (Trulicity) duloxetine 30 mg capsule,delayed 30 mg PO DAILY 11/01/21 11/09/21 Unknown History release fluticasone propionate 110 2 puff PO BID 11/01/21 11/09/21 Unknown History mcg/actuation HFA aerosol inhaler (Flovent HFA) folic acid 1 mg tablet 1 mg PO DAILY 11/01/21 11/09/21 Unknown History gabapentin 600 mg tablet 1,200 mg PO TID 11/01/21 11/09/21 Unknown History levetiracetam 1,000 mg tablet 1,000 mg PO BID 11/01/21 11/09/21 Unknown History lisinopril 40 mg tablet 40 mg PO DAILY 11/01/21 11/09/21 Unknown History magnesium oxide 400 mg (241.3 mg 400 mg PO BID 11/01/21 11/09/21 Unknown History magnesium) tablet melatonin 5 mg tablet 5 mg PO BEDTIME 11/01/21 11/09/21 Unknown History metformin 1,000 mg tablet 1,000 mg PO BID 11/01/21 11/09/21 Unknown History omeprazole 20 mg capsule,delayed 20 mg PO DAILY 11/01/21 11/09/21 Unknown History release pen needle, diabetic 31 gauge x #50 ea 11/01/21 11/09/21 Unknown History 10/04 (Sure Comfort Pen Needle) ropinirole 0.5 mg tablet 0.5 mg PO BEDTIME 11/01/21 11/09/21 Unknown History thiamine HCl (vitamin B1) 100 mg 100 mg PO DAILY 11/01/21 11/09/21 Unknown History tablet cyclobenzaprine 10 mg tablet 1 tab PO TID PRN muscle spasm 04/02/22 Unknown History duloxetine 60 mg capsule,delayed 1 cap PO DAILY 04/02/22 Unknown History release insulin lispro 100 unit/mL See Protocol subcut TID 04/02/22 Unknown History subcutaneous pen multivitamin 1 tab PO DAILY 04/02/22 Unknown History Physical Exam Vital Signs: Vital Signs: Last Vital Signs Temp 98.6 F 04/02/22 07:28 Pulse 80 04/02/22 13:23 Resp 19 04/02/22 13:56 BP 135/86 04/02/22 13:23 Pulse Ox 98 04/02/22 13:23 O2 Del Method 04/02/22 13:23 BMI result Body Mass Index 49.3 Const: General: no acute distress and tired appearing Nutritional Appearance: well nourished Orientation/consciousness: patient oriented x3 Limitations: wheelchair HEENT: Head: Yes normocephalic and Yes atraumatic Ears: hearing grossly normal bilaterally Resp: Effort & Inspection: normal respiratory effort, no audible wheezes, no cough and no respiratory distress Auscultation: clear to auscultation bilaterally GI: Inspection: Yes normal to inspection and Yes Abdominal panniculus present Palpation (GI): Soft to palpation, Tenderness to palpation present (GI) in the epigastrum, in the RUQ and Carpenter's sign positive and No hepatosplenomegaly present Percussion: Yes normal to percussion Auscultation: normal bowel sounds Rectal Exam - Female: deferred Skin: General skin exam: no rashes or lesions noted and dry skin Neuro: General: patient oriented x3 Extrem: General: Yes no clubbing, cyanosis or edema Results Results Labs: Short CBC 04/02/22 Range/Units 05:16 WBC 8.7 (4.8-10.8) X10*3/uL Hgb 14.4 (12.0-16.0) g/dl Hct 43.5 (37.0-47.0) % Plt Count 337 (160-400) X10*3/uL BMP 04/02/22 05:16 Sodium 137 Potassium 3.7 Chloride 100 Carbon Dioxide 25 BUN 9 Creatinine 0.75 Calcium 8.8 Liver Function 04/02/22 Range/Units 05:16 Total Bilirubin 2.4 H (0.0-1.0) mg/dL Direct Bilirubin 1.6 H (0.0-0.5) mg/dL AST 343 H (5-31) U/L ALT 218 H (0-31) U/L Alkaline Phosphatase 295 H D (39-117) U/L Albumin 3.9 (3.5-5.0) g/dL Urine 04/02/22 04/02/22 Range/Units 08:26 08:26 Urine Color Dark Yellow Urine Appearance Clear Urine pH 6.0 (5.0-9.0) Ur Specific [place] >= 1.030 H (1.005-1.025) Urine Protein 30 (1+) H (Neg-Trace) mg/dL Urine Glucose (UA) >=1000 H (Negative) mg/dL Urine Test NEGATIVE (NEGATIVE) Assessment and Plan (1) Cholecystitis, acute with cholelithiasis: Status: Acute (2) UTI (urinary tract infection): Status: Acute Plan 46-year-old female patient with multiple medical problems including diabetes, stroke, seizure, hypertension, asthma presenting with complaints of abdominal pain in the epigastrium and right upper quadrant found to have evidence of acute cholecystitis with elevated liver function tests suggestive of a possible common bile duct stone. Patient further underwent CT abdomen and pelvis, ultrasound and HIDA scan. Ultrasound confirms gallstones within the gallbladder. CT abdomen and pelvis however was normal With no acute findings. HIDA scan is pending at the time of this dictation. Patient will be admitted to the surgical service for further management of the cholelithiasis. She will be a hospitalist consultation for management of her multiple medical issues including diabetes. She was released on Zosyn for both the cholecystitis and UTI. Quality Stroke Does the patient have a stroke diagnosis?: Yes Reason for No Anti-thrombotic by Day Two: N/A - Med Ordered VTE Prior VTE?: No VTE Risk Level:: Surgical - very high VTE Device Contraindication: N/A - Device Ordered VTE Drug Contraindication: N/A - Med Ordered Procedures Date of Service Date of Service: 04/02/22
--- NOTE | 2022-04-02 15:22 | P.CONIM_ITS ---
History of Present Illness Data of Consult Service Date: 04/02/22 Primary Care Provider: [facility] Reason for consult: Abdominal pain A 46 years old lady with PMH of CVA, diabetes, hypertension, seizure, morbid obesity, depression among others who presents to the hospital with liver right upper quadrant abdominal pain. She reports that the pain started area this morning after eating. Denies any fever, chills, nausea, vomiting, change in bowel habit or urinary symptoms. Reports that her blood pressure is fairly controlled. Last seizure was almost 3 months ago because of missing pills. In the emergency she was found to have an evidence of gallbladder with multiple gallstones suggestive of acute cholecystitis. Evaluated by surgical team and admitted for HIDA scan and possible cholecystectomy. Hospital stay EMS for evaluation of medical problems and follow during the hospital stay. Review of Systems Review of Systems: No fever, chills or weakness No chest pain, palpitation No shortness of breath or coughing No abdominal pain, nausea or vomiting No urinary symptoms No any rash or wounds [facility] Medical History Anxiety Asthma Depression GERD (gastroesophageal reflux disease) Hx of completed stroke Hypertension Insomnia Insulin dependent type 2 diabetes mellitus Morbid obesity Neuropathy Restless leg syndrome Seizure Stroke Family History Mother Diabetes Father Diabetes Alcoholism Surgical History History of Social History Alcohol intake: former Patient Tobacco Use Status: Former Tobacco user Advance Directives: No Advance Directives Information Provided: Yes Meds Allergies Allergy/AdvReac Type Severity Reaction Status Date / Time tomato [TOMATO] Allergy Unknown RASH Verified 11/09/21 14:34 Active Medications: Current Medications Acetaminophen (Acetaminophen 325 Mg Tablet) 650 mg PO Q6H PRN PRN Reason: Pain, Mild (Pain Scale 1-3) Dextrose (Dextrose 50 % 25 Gm/50 Ml Syringe) 25 gm IVPUSH Q15M PRN; Protocol PRN Reason: per Hypoglycemia Standing Ord. Docusate Sodium (Docusate Sodium 100 Mg Capsule) 100 mg PO BID [place] Enoxaparin Sodium (Enoxaparin Sodium 40 Mg/0.4 Ml Syringe) 40 mg SUBCUT Q24H [facility] Glucose (Glucose Gel 15 Gm Gel..Gram.) 15 gm PO Q15M PRN; Protocol PRN Reason: per Hypoglycemia Standing Ord. Hydromorphone HCl (Hydromorphone Hcl 0.5 Mg/0.5 Ml Syringe) 0.5 mg IVPUSH Q4H PRN; Protocol PRN Reason: Pain, Severe (Pain Scale 7-10) Lactated Ringer's (Lr) 1,000 mls @ 100 mls/hr IVCONT .Q10H [facility] Piperacillin Sod/Tazobactam (Sod 3.375 gm/ Sodium Chloride) 50 mls @ 100 mls/hr IV Q6H [facility] Insulin Human Lispro (Insulin Lispro 100 Unit/Ml 3 Ml Vial) 0 unit SUBCUT QIDACHS [facility]; Protocol Stop: 04/03/22 14:37 Ondansetron HCl (Ondansetron Hcl 4 Mg/2 Ml Vial) 4 mg IVPUSH QID PRN PRN Reason: Nausea Oxycodone HCl (Oxycodone Hcl Immed Release 5 Mg Tablet) 5 mg PO Q6H PRN PRN Reason: Pain, Moderate (Pain Scale 4-6 Pharmacy Consult (Consult Rx Perform Med Rec) 1 each MISCELLANE ONCE PRN PRN Reason: Consult order Sodium Chloride (0.9 % Sodium Chloride Flush 3 Ml Syringe) 3 ml IVFLUSH QSHIFT [facility] Home Medications Medication Instructions Recorded Confirmed Last Taken Type blood sugar diagnostic (FreeStyle #10 ea 11/01/21 11/09/21 Unknown History Lite Strips) blood-glucose meter (FreeStyle #1 ea 11/01/21 11/09/21 Unknown History [place] Lite kit) clonazepam 0.5 mg tablet 0.5 mg PO DAILY 11/01/21 11/09/21 Unknown History clonidine HCl 0.2 mg tablet 0.2 mg PO BID 11/01/21 11/09/21 Unknown History doxazosin 1 mg tablet 2 mg PO DAILY 11/01/21 11/09/21 Unknown History dulaglutide 1.5 mg/0.5 mL 1.5 mg subcut QWEEK 11/01/21 11/09/21 Unknown History subcutaneous pen injector (Trulicity) duloxetine 30 mg capsule,delayed 30 mg PO DAILY 11/01/21 11/09/21 Unknown History release fluticasone propionate 110 2 puff PO BID 11/01/21 11/09/21 Unknown History mcg/actuation HFA aerosol inhaler (Flovent HFA) folic acid 1 mg tablet 1 mg PO DAILY 11/01/21 11/09/21 Unknown History gabapentin 600 mg tablet 1,200 mg PO TID 11/01/21 11/09/21 Unknown History levetiracetam 1,000 mg tablet 1,000 mg PO BID 11/01/21 11/09/21 Unknown History lisinopril 40 mg tablet 40 mg PO DAILY 11/01/21 11/09/21 Unknown History magnesium oxide 400 mg (241.3 mg 400 mg PO BID 11/01/21 11/09/21 Unknown History magnesium) tablet melatonin 5 mg tablet 5 mg PO BEDTIME 11/01/21 11/09/21 Unknown History metformin 1,000 mg tablet 1,000 mg PO BID 11/01/21 11/09/21 Unknown History omeprazole 20 mg capsule,delayed 20 mg PO DAILY 11/01/21 11/09/21 Unknown History release pen needle, diabetic 31 gauge x #50 ea 11/01/21 11/09/21 Unknown History 3 (Sure Comfort Pen Needle) ropinirole 0.5 mg tablet 0.5 mg PO BEDTIME 11/01/21 11/09/21 Unknown History thiamine HCl (vitamin B1) 100 mg 100 mg PO DAILY 11/01/21 11/09/21 Unknown History tablet cyclobenzaprine 10 mg tablet 1 tab PO TID PRN muscle spasm 04/02/22 Unknown History duloxetine 60 mg capsule,delayed 1 cap PO DAILY 04/02/22 Unknown History release insulin lispro 100 unit/mL See Protocol subcut TID 04/02/22 Unknown History subcutaneous pen multivitamin 1 tab PO DAILY 04/02/22 Unknown History Physical Exam Vital Signs and Narrative: Vital Signs: Last Vital Signs Temp 98.6 F 04/02/22 07:28 Pulse 80 04/02/22 13:23 Resp 19 04/02/22 13:56 BP 135/86 04/02/22 13:23 Pulse Ox 98 04/02/22 13:23 O2 Del Method 04/02/22 13:23 BMI result Body Mass Index 49.3 Const: Other: Constitutional : Alert, morbidly obese, not in distress Neck : Normal inspection, Supple Cardiovascular : RRR, no JVP, no lower extremity edema Respiratory : fair bilateral air entry, no crackles, wheezes or rhonchi Gastrointestinal: soft, lax, Normal bowel sounds, right upper quadrant tenderness, positive Carpenter sign Skin : Warm, Dry Neurological : Alert & oriented x3, right lower extremity weakness Results Labs CBC and Chem 7: 04/02/22 05:16 04/02/22 05:16 Labs: Laboratory Results - last 24 hr 04/02/22 04/02/22 04/02/22 05:16 05:16 08:26 MCV 80.1 MCH 26.5 L MCHC 33.1 RDW 15.2 Plt Count 337 MPV 10.9 Absolute Nucleated RBC 0.000 Nucleated RBC % (auto) 0.0 Anion Gap 16 Estim Creat Clear Calc 93.2 Estimated GFR > 60 Random Glucose 273 H Calcium 8.8 Total Bilirubin 2.4 H Direct Bilirubin 1.6 H AST 343 H ALT 218 H Alkaline Phosphatase 295 H D Total Protein 7.6 Albumin 3.9 Lipase 89 H Urine Color Dark Yellow Urine Appearance Clear Urine pH 6.0 Ur Specific [place] >= 1.030 H Urine Protein 30 (1+) H Urine Glucose (UA) >=1000 H Urine Ketones Trace Urine Blood Moderate (2+) H Urine Nitrite Negative Ur Leukocyte Esterase Trace H Urine RBC 3-5 H Urine WBC 21-50 H Ur Squamous Epith Cells 11-20 Urine Bacteria 4+ Hyaline Casts 0-2 Urine Test 04/02/22 08:26 MCV MCH MCHC RDW Plt Count MPV Absolute Nucleated RBC Nucleated RBC % (auto) Anion Gap Estim Creat Clear Calc Estimated GFR Random Glucose Calcium Total Bilirubin Direct Bilirubin AST ALT Alkaline Phosphatase Total Protein Albumin Lipase Urine Color Urine Appearance Urine pH Ur Specific [place] Urine Protein Urine Glucose (UA) Urine Ketones Urine Blood Urine Nitrite Ur Leukocyte Esterase Urine RBC Urine WBC Ur Squamous Epith Cells Urine Bacteria Hyaline Casts Urine Test NEGATIVE Imaging Radiologist's Impressions: Impressions Abdomen Ultrasound 04/02/22 08:46 IMPRESSION: Cholelithiasis in this setting of a positive sonographic Carpenter's sign. Visualization of the gallbladder is limited given shadowing from gallstones. Nonetheless, acute cholecystitis would be within the differential. Clinical correlation is recommended. HIDA imaging may be warranted. Abdomen/Pelvis CT 04/02/22 08:58 IMPRESSION: No acute CT findings. Assessment and Plan (1) Abdominal pain: Status: Acute (2) Cholecystitis, acute with cholelithiasis: Status: Acute (3) Insulin dependent type 2 diabetes mellitus: Status: Acute (4) Morbid obesity: Status: Acute Plan A 46 years old lady with PMH of CVA, diabetes, hypertension, seizure, morbid obesity, depression among others who presents to the hospital with liver right upper quadrant abdominal pain. - Acute cholecystitis - Transaminitis Management by surgical team Seems to be secondary to acute cholecystitis HIDA scan suggestive of possible intrahepatic disorder Follow CMP for now and continue treatment with IV antibiotics - bacteriuria No symptoms suggestive of UTI Patient antibiotics already Will await final cultures - Seizure disorder Continue home Keppra - Type 2 diabetes Hold p.o. medications SSI for now - Depression Continue duloxetine and Ativan as needed DVT PPX Lovenox Thank you for the consult, will continue to follow the patient with you
[2022-04-02] MEDS: Lactated Ringers 1,000 ML 100 ML IVCONT (15:33)
--- NOTE | 2022-04-02 16:24 | PC.NURSE ---
Parag unverified by pharmacy
[2022-04-02] MEDS: Enoxaparin Sodium 40 MG/0.4 ML SYRINGE SUBCUT (16:32)
[2022-04-02] MEDS: Piperacillin Sodium/Tazobactam 3.375 GM in 0.9 % Sodium Chloride 50 ML IV ×2 (16:38→22:19)
--- NOTE | 2022-04-02 16:47 | PHA.MEDREC ---
Pharmacy Consult ? Medication Reconciliation Pharmacy has completed the medication reconciliation. Spoke with patient in the ED
[2022-04-02] MEDS: levETIRAcetam 1,000 MG TABLET 1000 MG PO ×2 (16:58→20:48)
[2022-04-02 18:05] LABS: Glucose, Whole Blood 107 mg/dL (60-115)
--- NOTE | 2022-04-02 19:52 | PC.NURSE ---
Assumed care of pt. at 1900. Pt. sleeping in room with LR running at 100mL/hr.
[2022-04-02] MEDS: Gabapentin 300 MG CAPSULE 900 MG PO (20:48)
[2022-04-02] MEDS: Docusate Sodium 100 MG CAPSULE PO (20:48)
--- NOTE | 2022-04-02 21:17 | PC.NURSE ---
Pt. awake in bed. Requesting meds for sleep and pain meds. Will medicate with PRN pain meds per MAR. Looking into meds for sleep. Pt. c/o hunger, however, NPO per doctor.
[2022-04-02] MEDS: HYDROmorphone HCl 0.5 MG/0.5 ML SYRINGE IVPUSH (21:54)
--- NOTE | 2022-04-02 22:05 | PC.NURSE ---
Pt. resting in bed. c/o pain 02/28. Medicated with dilaudid per SEP. Covid swab obtained.
[2022-04-02] MEDS: clonazePAM 0.5 MG TABLET PO (22:19)
--- NOTE | 2022-04-02 22:23 | MHC.CM.PN ---
CM met with admitted patient with bed assignment pending. A&Ox4. PCP Dr. Jennifer Mckenzie. HCP reviewed, completed and signed. Copies given. [place] into [facility] [place] [facility] [place] [facility] HCP/[facility]/friend Cindy Neal ([phone]). Lives alone. Has [facility] services through [employer] morning, afternoon and evening/daily. Pt has DM supplies, walker and wheelchair. S/P stroke 2019. Pt states lived in [facility] after her stroke. Now home with services. 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 D/C plan: Home with continuation of [facility] services. Pt will need chair van home. CM to follow for d/c needs.
[2022-04-02 22:27] LABS: COVID-19 Test Negative (Negative)
--- NOTE | 2022-04-03 00:39 | PC.NURSE ---
left ac iv line very positional, took extra time to infuse abx pt sleeping at this time. breathing even and non-labored.
[2022-04-03] MEDS: Lactated Ringers 1,000 ML 100 ML IVCONT ×2 (03:55→14:22)
--- NOTE | 2022-04-03 03:56 | PC.NURSE ---
LR infusion just ended. New one began. Pt. sleeping.
--- NOTE | 2022-04-03 04:02 | PC.NURSE ---
Pt. awake and needing to use the restroom. Walked to rest room with 1 assist.
[2022-04-03] MEDS: Piperacillin Sodium/Tazobactam 3.375 GM in 0.9 % Sodium Chloride 50 ML IV ×3 (04:21→20:28)
--- NOTE | 2022-04-03 05:10 | PC.NURSE ---
Pt. sleeping in room. Breathing unlabored with even respirations.
[2022-04-03 06:02] VITALS: BP 136/84; PULSE 84; RESP 16; TEMP 36.3; O2SAT 94
[2022-04-03 06:55] LABS: MANUAL DIFF FLAG NO
[2022-04-03 06:56] LABS: Basophils Absolute Auto 0.1 X10*3/uL (0.0-0.2); Eosinophils Absolute Auto 0.3 X10*3/uL (0.0-0.4); Eosinophils Percent Auto 4.1 % (0-4); Hematocrit 39.6 % (37.0-47.0); Imm Gran Abs Auto 0.03 X10*3/uL (0.00-0.03); Imm Gran Pct Auto 0.4 % (0.0-0.4); Lymphocytes Absolute Auto 3.1 X10*3/uL (1.2-4.9); Lymphocytes Percent Auto 40.5 % (20-40); Mean Corpuscular HGB Conc 32.8 g/dl (31.0-35.0); Mean Corpuscular Hemoglobin 26.7 pg (27.0-33.0); Mean Corpuscular Volume 81.3 fL (80.0-98.0); Mean Platelet Volume 10.8 fL (9.4-12.3); Monocytes Absolute Auto 0.5 X10*3/uL (0.1-1.2); Monocytes Percent Auto 6.6 % (2-11); Neutrophils Absolute Auto 3.7 x10*3/uL (2.0-8.3); Neutrophils Percent Auto 47.4 % (45-73); Platelet Count 277 X10*3/uL (160-400); Red Blood Count 4.87 X10*6/uL (4.20-5.50); Red Cell Distribution Width 15.2 % (11.0-16.0); White Blood Count 7.8 X10*3/uL (4.8-10.8)
[2022-04-03 07:10] VITALS: BP 149/95; PULSE 86; RESP 14; TEMP 36.7
[2022-04-03 07:16] LABS: Glucose, Whole Blood 138 mg/dL (60-115)
[2022-04-03 07:21] LABS: Anion Gap 13 (12-20); Blood Urea Nitrogen 6 mg/dL (9-16); Calcium 8.1 mg/dL (8.4-10.2); Carbon Dioxide 23 mmol/L (22-29); Chloride 106 mmol/L (96-108); Creatinine Clr Calc Pharmacy 105.9; Estimated Glomerular Filt Rate > 60; Glucose Random 153 mg/dL (60-115); Potassium 3.4 mmol/L (3.3-5.1); Sodium 139 mmol/L (135-145)
[2022-04-03 07:24] LABS: Alanine Aminotransferase 192 U/L (0-31); Albumin Level 3.5 g/dL (3.5-5.0); Alkaline Phosphatase 256 U/L (39-117); Aspartate Amino Transferase 183 U/L (5-31); Bilirubin Direct 0.8 mg/dL (0.0-0.5); Bilirubin Total 1.6 mg/dL (0.0-1.0); Total Protein 6.8 g/dL (6.5-8.0)
--- NOTE | 2022-04-03 08:27 | PC.NURSE ---
PT AMBULATORY TO THE BATHROOM . DR RODRÍGUEZ HERE FOR ASSESSMENT, PT IS SCHEDULED TO GO THE THE OR FOR 1230. SHE WILL REMAIN NPO. SHE STATES SHE IS AT A TOLERABLE LEVEL OF DISCOMFORT
--- NOTE | 2022-04-03 09:11 | P.PNIM_ITS ---
Subjective Subjective Date of Service: 04/03/22 Interval History: Seen and evaluated this morning Feels more comfortable, report decreased pain in her abdomen Transaminitis trending down No other overnight events Review of Systems No fever, chills or weakness No chest pain, palpitation No shortness of breath or coughing Improved abdominal pain, no nausea or vomiting No urinary symptoms No any rash or wounds Physical Exam Vital Signs: Vital Signs: Last Vital Signs Temp 98.0 F 04/03/22 07:10 Pulse 86 04/03/22 07:10 Resp 14 04/03/22 07:10 BP 149/95 H 04/03/22 07:10 Pulse Ox 94 04/03/22 06:02 O2 Del Method 04/03/22 07:10 BMI result Body Mass Index 49.3 Const: Other: Constitutional : Alert, morbidly obese, not in distress Neck : Normal inspection, Supple Cardiovascular : RRR, no JVP, no lower extremity edema Respiratory : fair bilateral air entry, no crackles, wheezes or rhonchi Gastrointestinal: soft, lax, Normal bowel sounds,decreased right upper quadrant tenderness Skin : Warm, Dry Neurological : Alert & oriented x3, right lower extremity weakness Objective Data Active Medications Acetaminophen (Acetaminophen 325 Mg Tablet) 650 mg PO Q6H PRN PRN Reason: Pain, Mild (Pain Scale 1-3) Clonidine HCl (Clonidine Hcl 0.2 Mg Tablet) 0.2 mg PO BID [facility]; Protocol Cyclobenzaprine HCl (Cyclobenzaprine Hcl 10 Mg Tablet) 10 mg PO TID PRN PRN Reason: muscle spasm Dextrose (Dextrose 50 % 25 Gm/50 Ml Syringe) 25 gm IVPUSH Q15M PRN; Protocol PRN Reason: per Hypoglycemia Standing Ord. Dextrose (Dextrose 50 % 25 Gm/50 Ml Syringe) 25 gm IVPUSH Q15M PRN; Protocol PRN Reason: per Hypoglycemia Standing Ord. Docusate Sodium (Docusate Sodium 100 Mg Capsule) 100 mg PO BID [facility] Last Admin: 04/02/22 20:48 Dose: 100 mg Documented By: WING Doxazosin Mesylate (Doxazosin Mesylate 2 Mg Tablet) 2 mg PO DAILY [facility]; Protocol Duloxetine HCl (Duloxetine Hcl 30 Mg Capsule.) 30 mg PO DAILY [facility] Duloxetine HCl (Duloxetine Hcl 60 Mg Capsule.) 60 mg PO DAILY [facility] Enoxaparin Sodium (Enoxaparin Sodium 40 Mg/0.4 Ml Syringe) 40 mg SUBCUT Q24H [facility] Last Admin: 04/02/22 16:32 Dose: 40 mg Documented By: MAGED Fluticasone Propionate (Fluticasone Propionate 100 Mcg Blst.W.Dev) 2 puff INHALE RBID [facility] Last Admin: 04/03/22 08:30 Dose: Not Given Documented By: RAMSES Non-Admin Reason: Med Not Available Folic Acid (Folic Acid 1 Mg Tablet) 1 mg PO DAILY [facility] Gabapentin (Gabapentin 300 Mg Capsule) 900 mg PO TID [facility] Last Admin: 04/02/22 20:48 Dose: 900 mg Documented By: WING Glucose (Glucose Gel 15 Gm Gel..Gram.) 15 gm PO Q15M PRN; Protocol PRN Reason: per Hypoglycemia Standing Ord. Glucose (Glucose Gel 15 Gm Gel..Gram.) 15 gm PO Q15M PRN; Protocol PRN Reason: per Hypoglycemia Standing Ord. Hydromorphone HCl (Hydromorphone Hcl 0.5 Mg/0.5 Ml Syringe) 0.5 mg IVPUSH Q4H PRN; Protocol PRN Reason: Pain, Severe (Pain Scale 7-10) Last Admin: 04/02/22 21:54 Dose: 0.5 mg Documented By: WING Lactated Ringer's (Lr) 1,000 mls @ 100 mls/hr IVCONT .Q10H [facility] Last Admin: 04/03/22 03:55 Dose: 100 mls/hr Documented By: WING Piperacillin Sod/Tazobactam (Sod 3.375 gm/ Sodium Chloride) 50 mls @ 100 mls/hr IV Q6H [facility] Last Infusion: 04/03/22 05:09 Dose: 0 mls/hr Documented By: WING Insulin Human Lispro (Insulin Lispro 100 Unit/Ml 3 Ml Vial) 0 unit SUBCUT QIDAS [facility]; Protocol Stop: 04/03/22 14:37 Last Admin: 04/02/22 21:16 Dose: Not Given Documented By: WING Non-Admin Reason: No Insulin Coverage Insulin Human Lispro (Insulin Lispro 100 Unit/Ml 3 Ml Vial) 0 unit SUBCUT QIDAS [facility]; Protocol Levetiracetam (Levetiracetam 1,000 Mg Tablet) 1,000 mg PO BID [facility] Last Admin: 04/02/22 20:48 Dose: 1,000 mg Documented By: WING Lisinopril (Lisinopril 40 Mg Tablet) 40 mg PO DAILY [facility]; Protocol Magnesium Oxide (Magnesium Oxide 400 Mg Tablet) 400 mg PO BID [facility] Melatonin (Melatonin 3 Mg Tablet) 6 mg PO BEDTIME [facility] Omeprazole (Omeprazole 20 Mg Capsule.Dr) 20 mg PO DAILY@0630 [facility] Ondansetron HCl (Ondansetron Hcl 4 Mg/2 Ml Vial) 4 mg IVPUSH QID PRN PRN Reason: Nausea Oxycodone HCl (Oxycodone Hcl Immed Release 5 Mg Tablet) 5 mg PO Q6H PRN PRN Reason: Pain, Moderate (Pain Scale 4-6 Pharmacy Consult (Consult Rx Perform Med Rec) 1 each MISCELLANE ONCE PRN PRN Reason: Consult order Ropinirole HCl (Ropinirole Hcl 0.5 Mg Tablet) 0.5 mg PO BEDTIME [facility] Sodium Chloride (0.9 % Sodium Chloride Flush 3 Ml Syringe) 3 ml IVFLUSH QSHIFT [facility] Last Admin: 04/03/22 00:45 Dose: Not Given Documented By: WING Non-Admin Reason: IV Running Thiamine HCl (Thiamine Hcl 100 Mg Tablet) 100 mg PO DAILY [facility] Labs CBC & Chem 7: 04/03/22 06:50 04/03/22 06:50 Labs: Laboratory Results - last 24 hr 04/02/22 04/02/22 04/03/22 18:01 22:05 06:50 MCV 81.3 MCH 26.7 L MCHC 32.8 RDW 15.2 Plt Count 277 MPV 10.8 Immature Gran % (Auto) 0.4 Neut % (Auto) 47.4 Lymph % (Auto) 40.5 H [place] % (Auto) 6.6 Eos % (Auto) 4.1 H Baso % (Auto) 1.0 Lymph # (Auto) 3.1 [place] # (Auto) 0.5 Eos # (Auto) 0.3 Baso # (Auto) 0.1 Abs Immat Gran (auto) 0.03 Absolute Neuts (auto) 3.7 Absolute Nucleated RBC 0.000 Nucleated RBC % (auto) 0.0 Anion Gap Estim Creat Clear Calc Estimated GFR POC Glucose 107 Random Glucose Calcium Total Bilirubin Direct Bilirubin AST ALT Alkaline Phosphatase Total Protein Albumin COVID-19 (PETER) Negative COVID-19 Clin Com See Note 04/03/22 04/03/22 04/03/22 06:50 06:50 07:09 MCV MCH MCHC RDW Plt Count MPV Immature Gran % (Auto) Neut % (Auto) Lymph % (Auto) [place] % (Auto) Eos % (Auto) Baso % (Auto) Lymph # (Auto) [place] # (Auto) Eos # (Auto) Baso # (Auto) Abs Immat Gran (auto) Absolute Neuts (auto) Absolute Nucleated RBC Nucleated RBC % (auto) Anion Gap 13 Estim Creat Clear Calc 105.9 Estimated GFR > 60 POC Glucose 138 H Random Glucose 153 H Calcium 8.1 L D Total Bilirubin 1.6 H Direct Bilirubin 0.8 H AST 183 H ALT 192 H Alkaline Phosphatase 256 H Total Protein 6.8 Albumin 3.5 COVID-19 (PETER) COVID-19 Clin Com Assessment and Plan (1) Cholecystitis, acute with cholelithiasis: Status: Acute (2) Transaminitis: Status: Acute Plan A 46 years old lady with PMH of CVA, diabetes, hypertension, seizure, morbid obesity, depression among others who presents to the hospital with liver right upper quadrant abdominal pain. - Acute cholecystitis - Transaminitis Management by surgical team Seems to be secondary to acute cholecystitis , passing stone LFT trending down continue treatment with IV antibiotics - bacteriuria No symptoms suggestive of UTI Patient antibiotics already Will await final cultures - Seizure disorder Continue home Keppra - Type 2 diabetes Hold p.o. medications SSI for now - Depression Continue duloxetine and Ativan as needed DVT PPX Lovenox Thank you for the consult, will continue to follow the patient with you Quality Stroke Does the patient have a stroke diagnosis?: Yes Reason for No Anti-thrombotic by Day Two: N/A - Med Ordered VTE Prior VTE?: No VTE Risk Level:: Surgical - very high VTE Device Contraindication: N/A - Device Ordered VTE Drug Contraindication: N/A - Med Ordered
--- NOTE | 2022-04-03 10:24 | P.CDIC_ITS ---
CDI Concurrent Query Documentation Clarification: PHYSICIAN'S DOCUMENTATION REQUEST Date of Query: 04/03/22 1024 Patient Name: Yesika Farr Admit Date: 04/02/22 Dear Doctor, A review of the medical record indicates additional documentation may be needed. Please review below and update the documentation accordingly. Clinical Indicators: A diagnosis of seizure(s) was documented on 04/02/22. Risk Factors/Clinical Indicators/Treatments on Keppra If possible, please further clarify in the Progress Notes, the type/etiology, acuity and control status of seizure(s): Specify type/etiology: * Idiopathic * Febrile (specify simple or complex) * Due to stroke * Post-traumatic * Due to external cause (specify if drug, alcohol, stress, etc.) * Absence * Generalized epilepsy (grand mal, myoclonic, atonic, clonic, tonic-clonic, etc.) * Focal or partial (specify simple or complex) * Petit mal * Recurrent - further specify type/etiology * Other * Unable to determine Specify acuity: * With status epilepticus * Without status epilepticus * Other * Unable to determine Specify control status: * Well controlled * Intractable * Pharmacoresistant * Poorly controlled * Refractory * Treatment resistant * Other * Unable to determine Use of terms such as suspected, likely, concern for, or probable (associated with a specific diagnosis that is being evaluated, monitored, or treated as if it exists) are acceptable and can be coded in the inpatient setting, when documented at the time of discharge. Thank you, Lisandra Day RN Extension: [phone] Please use your independent medical judgment in providing your response. 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
--- NOTE | 2022-04-03 10:24 | MHC.CDI.CONC ---
CDI Concurrent Query Documentation Clarification: PHYSICIAN'S DOCUMENTATION REQUEST Date of Query: 04/03/22 1024 Patient Name: Yesika Farr Admit Date: 04/02/22 Dear Doctor, A review of the medical record indicates additional documentation may be needed. Please review below and update the documentation accordingly. Clinical Indicators: A diagnosis of seizure(s) was documented on 04/02/22. Risk Factors/Clinical Indicators/Treatments on Keppra If possible, please further clarify in the Progress Notes, the type/etiology, acuity and control status of seizure(s): Specify type/etiology: Idiopathic Febrile (specify simple or complex) Due to stroke Post-traumatic Due to external cause (specify if drug, alcohol, stress, etc.) Absence Generalized epilepsy (grand mal, myoclonic, atonic, clonic, tonic-clonic, etc.) Focal or partial (specify simple or complex) Petit mal Recurrent - further specify type/etiology Other Unable to determine Specify acuity: With status epilepticus Without status epilepticus Other Unable to determine Specify control status: Well controlled Intractable Pharmacoresistant Poorly controlled Refractory Treatment resistant Other Unable to determine Use of terms such as suspected, likely, concern for, or probable (associated with a specific diagnosis that is being evaluated, monitored, or treated as if it exists) are acceptable and can be coded in the inpatient setting, when documented at the time of discharge. Thank you, Lisandra Day RN Extension: [phone] Please use your independent medical judgment in providing your response. 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
[2022-04-03] MEDS: HYDROmorphone HCl 0.5 MG/0.5 ML SYRINGE IVPUSH ×2 (10:36→19:22)
--- NOTE | 2022-04-03 10:44 | HO.ANESPROP2 ---
[facility] Active Problems Active Problems: All Active Problems (Updated 04/03/22 @ 09:45 by Wesley Little MD) Transaminitis (Acute) Abdominal pain (Acute) UTI (urinary tract infection) (Acute) Cholecystitis, acute with cholelithiasis (Acute) Major depressive disorder (Acute) Binge eating disorder (Acute) Asthma (Acute) Restless leg syndrome (Acute) Stroke (Acute) GERD (gastroesophageal reflux disease) (Acute) Anxiety (Acute) Depression (Acute) Insomnia (Acute) Neuropathy (Acute) Seizure (Acute) Hypertension (Acute) Insulin dependent type 2 diabetes mellitus (Acute) Morbid obesity (Acute) Past Medical History Medical History Anxiety Asthma Depression GERD (gastroesophageal reflux disease) Hx of completed stroke Hypertension Insomnia Insulin dependent type 2 diabetes mellitus Morbid obesity Neuropathy Restless leg syndrome Seizure Stroke Family History Family History Mother Diabetes Father Diabetes Alcoholism Surgical History Surgical History History of History of Problems with Anesthesia: No Social History Social History Alcohol intake: former Patient Tobacco Use Status: Former Tobacco user Quit Date: 3 yrs ago Use of substances other than those prescribed or required for medical reasons: Yes Substance Use Frequency: Occasionally Are you DNR?: No Advance Directives: No Advance Directives Information Provided: Yes Patient : No service: No Current occupational status: unemployed Meds Allergies Allergy/AdvReac Type Severity Reaction Status Date / Time tomato [TOMATO] Allergy Unknown RASH Verified 04/03/22 12:00 Active Medications: Current Medications Acetaminophen (Acetaminophen 325 Mg Tablet) 650 mg PO Q6H PRN PRN Reason: Pain, Mild (Pain Scale 1-3) Clonidine HCl (Clonidine Hcl 0.2 Mg Tablet) 0.2 mg PO BID [facility]; Protocol Cyclobenzaprine HCl (Cyclobenzaprine Hcl 10 Mg Tablet) 10 mg PO TID PRN PRN Reason: muscle spasm Dextrose (Dextrose 50 % 25 Gm/50 Ml Syringe) 25 gm IVPUSH Q15M PRN; Protocol PRN Reason: per Hypoglycemia Standing Ord. Dextrose (Dextrose 50 % 25 Gm/50 Ml Syringe) 25 gm IVPUSH Q15M PRN; Protocol PRN Reason: per Hypoglycemia Standing Ord. Docusate Sodium (Docusate Sodium 100 Mg Capsule) 100 mg PO BID [facility] Last Admin: 04/02/22 20:48 Dose: 100 mg Doxazosin Mesylate (Doxazosin Mesylate 2 Mg Tablet) 2 mg PO DAILY [facility]; Protocol Duloxetine HCl (Duloxetine Hcl 30 Mg Capsule.Dr) 30 mg PO DAILY [facility] Duloxetine HCl (Duloxetine Hcl 60 Mg Capsule.Dr) 60 mg PO DAILY [facility] Enoxaparin Sodium (Enoxaparin Sodium 40 Mg/0.4 Ml Syringe) 40 mg SUBCUT Q24H [facility] Last Admin: 04/02/22 16:32 Dose: 40 mg Fluticasone Propionate (Fluticasone Propionate 100 Mcg Blst.W.Dev) 2 puff INHALE RBID [facility] Last Admin: 04/03/22 08:30 Dose: Not Given Folic Acid (Folic Acid 1 Mg Tablet) 1 mg PO DAILY [facility] Gabapentin (Gabapentin 300 Mg Capsule) 900 mg PO TID [facility] Last Admin: 04/02/22 20:48 Dose: 900 mg Glucose (Glucose Gel 15 Gm Gel..Gram.) 15 gm PO Q15M PRN; Protocol PRN Reason: per Hypoglycemia Standing Ord. Glucose (Glucose Gel 15 Gm Gel..Gram.) 15 gm PO Q15M PRN; Protocol PRN Reason: per Hypoglycemia Standing Ord. Hydromorphone HCl (Hydromorphone Hcl 0.5 Mg/0.5 Ml Syringe) 0.5 mg IVPUSH Q4H PRN; Protocol PRN Reason: Pain, Severe (Pain Scale 7-10) Last Admin: 04/03/22 10:36 Dose: 0.5 mg Lactated Ringer's (Lr) 1,000 mls @ 100 mls/hr IVCONT .Q10H [facility] Last Admin: 04/03/22 03:55 Dose: 100 mls/hr Piperacillin Sod/Tazobactam (Sod 3.375 gm/ Sodium Chloride) 50 mls @ 100 mls/hr IV Q6H [facility] Last Infusion: 04/03/22 05:09 Dose: Infused Insulin Human Lispro (Insulin Lispro 100 Unit/Ml 3 Ml Vial) 0 unit SUBCUT QIDACHS [facility]; Protocol Stop: 04/03/22 14:37 Last Admin: 04/03/22 10:13 Dose: Not Given Insulin Human Lispro (Insulin Lispro 100 Unit/Ml 3 Ml Vial) 0 unit SUBCUT QIDACHS [facility]; Protocol Levetiracetam (Levetiracetam 1,000 Mg Tablet) 1,000 mg PO BID [facility] Last Admin: 04/02/22 20:48 Dose: 1,000 mg Lisinopril (Lisinopril 40 Mg Tablet) 40 mg PO DAILY [facility]; Protocol Magnesium Oxide (Magnesium Oxide 400 Mg Tablet) 400 mg PO BID [facility] Melatonin (Melatonin 3 Mg Tablet) 6 mg PO BEDTIME [facility] Omeprazole (Omeprazole 20 Mg Capsule.Dr) 20 mg PO DAILY@0630 [facility] Ondansetron HCl (Ondansetron Hcl 4 Mg/2 Ml Vial) 4 mg IVPUSH QID PRN PRN Reason: Nausea Oxycodone HCl (Oxycodone Hcl Immed Release 5 Mg Tablet) 5 mg PO Q6H PRN PRN Reason: Pain, Moderate (Pain Scale 4-6 Pharmacy Consult (Consult Rx Perform Med Rec) 1 each MISCELLANE ONCE PRN PRN Reason: Consult order Ropinirole HCl (Ropinirole Hcl 0.5 Mg Tablet) 0.5 mg PO BEDTIME [facility] Sodium Chloride (0.9 % Sodium Chloride Flush 3 Ml Syringe) 3 ml IVFLUSH QSHIFT [facility] Last Admin: 04/03/22 10:13 Dose: Not Given Thiamine HCl (Thiamine Hcl 100 Mg Tablet) 100 mg PO DAILY [facility] Home Medications Medication Instructions Recorded Confirmed Last Taken Type blood sugar diagnostic (FreeStyle #10 ea 11/01/21 04/02/22 Unknown History Lite Strips) blood-glucose meter (FreeStyle #1 ea 11/01/21 04/02/22 Unknown History [place] Lite kit) clonidine HCl 0.2 mg tablet 0.2 mg PO BID 11/01/21 04/02/22 04/01/22 History doxazosin 1 mg tablet 2 mg PO DAILY 11/01/21 04/02/22 04/01/22 History dulaglutide 1.5 mg/0.5 mL 1.5 mg subcut TH@0900 11/01/21 04/02/22 03/29/22 History subcutaneous pen injector (Trulicity) duloxetine 30 mg capsule,delayed 30 mg PO DAILY 04/04/02/22 04/01/22 History release fluticasone propionate 110 2 puff PO BID 11/01/21 04/02/22 04/01/22 History mcg/actuation HFA aerosol inhaler (Flovent HFA) folic acid 1 mg tablet 1 mg PO DAILY 11/01/21 04/02/22 04/01/22 History gabapentin 600 mg tablet 1,200 mg PO TID 11/01/21 04/02/22 04/01/22 History levetiracetam 1,000 mg tablet 1,000 mg PO BID 11/01/21 04/02/22 04/01/22 History lisinopril 40 mg tablet 40 mg PO DAILY 11/01/21 04/02/22 04/01/22 History magnesium oxide 400 mg (241.3 mg 400 mg PO BID 11/01/21 04/02/22 04/01/22 History magnesium) tablet melatonin 5 mg tablet 5 mg PO BEDTIME 11/01/21 04/02/22 04/01/22 History metformin 1,000 mg tablet 1,000 mg PO BIDWM 11/01/21 04/02/22 04/01/22 History omeprazole 20 mg capsule,delayed 20 mg PO DAILY@0630 11/01/21 04/02/22 04/01/22 History release pen needle, diabetic 31 gauge x #50 ea 11/01/21 04/02/22 Unknown History 10/04 (Sure Comfort Pen Needle) ropinirole 0.5 mg tablet 0.5 mg PO BEDTIME 11/01/21 04/02/22 04/01/22 History thiamine HCl (vitamin B1) 100 mg 100 mg PO DAILY 11/01/21 04/02/22 04/01/22 History tablet cyclobenzaprine 10 mg tablet 1 tab PO TID PRN muscle spasm 04/02/22 04/02/22 04/01/22 History duloxetine 60 mg capsule,delayed 1 cap PO DAILY 04/02/22 04/02/22 04/01/22 History release insulin lispro 100 unit/mL See Protocol subcut TIDAC 04/02/22 04/02/22 04/01/22 History subcutaneous pen multivitamin 1 tab PO DAILY 04/02/22 04/02/22 04/01/22 History Exam Exam Date and Time: April 03, 2022 1044 Height,Weight and Vital Signs: Height 4 ft 8 in Weight 99.79 kg Last Vital Signs Temp 98.0 F 04/03/22 07:10 Pulse 86 04/03/22 07:10 Resp 14 04/03/22 07:10 BP 149/95 H 04/03/22 07:10 Pulse Ox 94 04/03/22 06:02 O2 Del Method 04/03/22 07:10 Pertinent Lab Results Pertinent Lab Results: Laboratory Tests 04/02/22 04/02/22 04/02/22 05:16 05:16 08:26 WBC 8.7 RBC 5.43 Hgb 14.4 Hct 43.5 MCV 80.1 MCH 26.5 L MCHC 33.1 RDW 15.2 Plt Count 337 MPV 10.9 Immature Gran % (Auto) Neut % (Auto) Lymph % (Auto) [place] % (Auto) Eos % (Auto) Baso % (Auto) Lymph # (Auto) [place] # (Auto) Eos # (Auto) Baso # (Auto) Abs Immat Gran (auto) Absolute Neuts (auto) Absolute Nucleated RBC 0.000 Nucleated RBC % (auto) 0.0 Sodium 137 Potassium 3.7 Chloride 100 Carbon Dioxide 25 Anion Gap 16 BUN 9 Creatinine 0.75 Estim Creat Clear Calc 93.2 Estimated GFR > 60 POC Glucose Random Glucose 273 H Calcium 8.8 Total Bilirubin 2.4 H Direct Bilirubin 1.6 H AST 343 H ALT 218 H Alkaline Phosphatase 295 H D Total Protein 7.6 Albumin 3.9 Lipase 89 H Urine Color Dark Yellow Urine Appearance Clear Urine pH 6.0 Ur Specific [place] >= 1.030 H Urine Protein 30 (1+) H Urine Glucose (UA) >=1000 H Urine Ketones Trace Urine Blood Moderate (2+) H Urine Nitrite Negative Ur Leukocyte Esterase Trace H Urine RBC 3-5 H Urine WBC 21-50 H Ur Squamous Epith Cells 11-20 Urine Bacteria 4+ Hyaline Casts 0-2 Urine Test COVID-19 ([facility]) COVID-19 Clin Com 04/02/22 04/02/22 04/02/22 08:26 18:01 22:05 WBC RBC Hgb Hct MCV MCH MCHC RDW Plt Count MPV Immature Gran % (Auto) Neut % (Auto) Lymph % (Auto) [place] % (Auto) Eos % (Auto) Baso % (Auto) Lymph # (Auto) [place] # (Auto) Eos # (Auto) Baso # (Auto) Abs Immat Gran (auto) Absolute Neuts (auto) Absolute Nucleated RBC Nucleated RBC % (auto) Sodium Potassium Chloride Carbon Dioxide Anion Gap BUN Creatinine Estim Creat Clear Calc Estimated GFR POC Glucose 107 Random Glucose Calcium Total Bilirubin Direct Bilirubin AST ALT Alkaline Phosphatase Total Protein Albumin Lipase Urine Color Urine Appearance Urine pH Ur Specific [place] Urine Protein Urine Glucose (UA) Urine Ketones Urine Blood Urine Nitrite Ur Leukocyte Esterase Urine RBC Urine WBC Ur Squamous Epith Cells Urine Bacteria Hyaline Casts Urine Test NEGATIVE COVID-19 ([facility]) Negative COVID-19 Clin Com See Note 04/03/22 04/03/22 04/03/22 06:50 06:50 06:50 WBC 7.8 RBC 4.87 Hgb 13.0 Hct 39.6 MCV 81.3 MCH 26.7 L MCHC 32.8 RDW 15.2 Plt Count 277 MPV 10.8 Immature Gran % (Auto) 0.4 Neut % (Auto) 47.4 Lymph % (Auto) 40.5 H [place] % (Auto) 6.6 Eos % (Auto) 4.1 H Baso % (Auto) 1.0 Lymph # (Auto) 3.1 [place] # (Auto) 0.5 Eos # (Auto) 0.3 Baso # (Auto) 0.1 Abs Immat Gran (auto) 0.03 Absolute Neuts (auto) 3.7 Absolute Nucleated RBC 0.000 Nucleated RBC % (auto) 0.0 Sodium 139 Potassium 3.4 Chloride 106 Carbon Dioxide 23 Anion Gap 13 BUN 6 L Creatinine 0.66 Estim Creat Clear Calc 105.9 Estimated GFR > 60 POC Glucose Random Glucose 153 H Calcium 8.1 L D Total Bilirubin 1.6 H Direct Bilirubin 0.8 H AST 183 H ALT 192 H Alkaline Phosphatase 256 H Total Protein 6.8 Albumin 3.5 Lipase Urine Color Urine Appearance Urine pH Ur Specific [place] Urine Protein Urine Glucose (UA) Urine Ketones Urine Blood Urine Nitrite Ur Leukocyte Esterase Urine RBC Urine WBC Ur Squamous Epith Cells Urine Bacteria Hyaline Casts Urine Test COVID-19 ([facility]) COVID-19 Clin Com 04/03/22 07:09 WBC RBC Hgb Hct MCV MCH MCHC RDW Plt Count MPV Immature Gran % (Auto) Neut % (Auto) Lymph % (Auto) [place] % (Auto) Eos % (Auto) Baso % (Auto) Lymph # (Auto) [place] # (Auto) Eos # (Auto) Baso # (Auto) Abs Immat Gran (auto) Absolute Neuts (auto) Absolute Nucleated RBC Nucleated RBC % (auto) Sodium Potassium Chloride Carbon Dioxide Anion Gap BUN Creatinine Estim Creat Clear Calc Estimated GFR POC Glucose 138 H Random Glucose Calcium Total Bilirubin Direct Bilirubin AST ALT Alkaline Phosphatase Total Protein Albumin Lipase Urine Color Urine Appearance Urine pH Ur Specific [place] Urine Protein Urine Glucose (UA) Urine Ketones Urine Blood Urine Nitrite Ur Leukocyte Esterase Urine RBC Urine WBC Ur Squamous Epith Cells Urine Bacteria Hyaline Casts Urine Test COVID-19 ([facility]) COVID-19 Clin Com Airway Mallampati Class: II (Edentulpus upper) TM Dist: >3cm Neck ROM: Full Loose/Missing/Broken Teeth: Yes, Upper and Lower Heart: RRR Lungs: CTA Assessment and Plan Assessment Anesthesia Assessment: Anesthesia Plan Discussed and Chart Reviewed Final Anesthetic Review History of Problems with Anesthesia: No NPO: Yes ASA Class: III Final Preanesthetic Review: Meds/Allgs Chart Reviewed, Consent Obtained/Reviewed and Anes Risks/Benef Reviewed Patient Risk: Intermediate Procedure Risk: Intermediate Anesthetic Plan Anesthetic Plan: GA Disposition: Standard PACU
[2022-04-03 11:26] VITALS: BP 141/91; PULSE 86; RESP 14; TEMP 36.6; O2SAT 97
[2022-04-03 12:00] VITALS: BP 165/92; PULSE 82; RESP 17; TEMP 36.2; O2SAT 98
--- NOTE | 2022-04-03 12:03 | P.PNGS_ITS ---
Subjective Subjective Date of Service: 04/03/22 Interval history: Patient reports decreased abdominal pain this morning. She is hungry and denies nausea or vomiting. Physical Exam Vital Signs: Vital Signs: Last Vital Signs Temp 97.8 F 04/03/22 11:26 Pulse 86 04/03/22 11:26 Resp 14 04/03/22 11:26 BP 141/91 H 04/03/22 11:26 Pulse Ox 97 04/03/22 11:26 O2 Del Method 04/03/22 11:26 BMI result Body Mass Index 49.3 Const: General: no acute distress Nutritional Appearance: obese Orientation/consciousness: patient oriented x3 Limitations: wheelchair HEENT: Head: Yes normocephalic and Yes atraumatic Ears: hearing grossly normal bilaterally Resp: Effort & Inspection: normal respiratory effort, no audible wheezes, no cough and no respiratory distress GI: Inspection: Yes normal to inspection Palpation (GI): Soft to palpation, Tenderness to palpation present (GI) in the RUQ and Carpenter's sign positive; with no rebound tenderness, no guarding and not rigid Percussion: Yes normal to percussion Auscultation: normal bowel sounds Rectal Exam - Female: def erred Skin: General skin exam: no rashes or lesions noted Neuro: General: patient oriented x3 Extrem: General: Yes no clubbing, cyanosis or edema Objective Data Active Medications Acetaminophen (Acetaminophen 325 Mg Tablet) 650 mg PO Q6H PRN PRN Reason: Pain, Mild (Pain Scale 1-3) Clonidine HCl (Clonidine Hcl 0.2 Mg Tablet) 0.2 mg PO BID [facility]; Protocol Cyclobenzaprine HCl (Cyclobenzaprine Hcl 10 Mg Tablet) 10 mg PO TID PRN PRN Reason: muscle spasm Dextrose (Dextrose 50 % 25 Gm/50 Ml Syringe) 25 gm IVPUSH Q15M PRN; Protocol PRN Reason: per Hypoglycemia Standing Ord. Dextrose (Dextrose 50 % 25 Gm/50 Ml Syringe) 25 gm IVPUSH Q15M PRN; Protocol PRN Reason: per Hypoglycemia Standing Ord. Docusate Sodium (Docusate Sodium 100 Mg Capsule) 100 mg PO BID [facility] Last Admin: 04/02/22 20:48 Dose: 100 mg Documented By: WING Doxazosin Mesylate (Doxazosin Mesylate 2 Mg Tablet) 2 mg PO DAILY [facility]; Protocol Duloxetine HCl (Duloxetine Hcl 30 Mg Capsule.Dr) 30 mg PO DAILY [facility] Duloxetine HCl (Duloxetine Hcl 60 Mg Capsule.Dr) 60 mg PO DAILY [facility] Enoxaparin Sodium (Enoxaparin Sodium 40 Mg/0.4 Ml Syringe) 40 mg SUBCUT Q24H [facility] Last Admin: 04/02/22 16:32 Dose: 40 mg Documented By: MAGED Fluticasone Propionate (Fluticasone Propionate 100 Mcg Blst.W.Dev) 2 puff INHALE RBID [facility] Last Admin: 04/03/22 08:30 Dose: Not Given Documented By: RAMSES Non-Admin Reason: Med Not Available Folic Acid (Folic Acid 1 Mg Tablet) 1 mg PO DAILY [facility] Gabapentin (Gabapentin 300 Mg Capsule) 900 mg PO TID [facility] Last Admin: 04/02/22 20:48 Dose: 900 mg Documented By: WING Glucose (Glucose Gel 15 Gm Gel..Gram.) 15 gm PO Q15M PRN; Protocol PRN Reason: per Hypoglycemia Standing Ord. Glucose (Glucose Gel 15 Gm Gel..Gram.) 15 gm PO Q15M PRN; Protocol PRN Reason: per Hypoglycemia Standing Ord. Hydromorphone HCl (Hydromorphone Hcl 0.5 Mg/0.5 Ml Syringe) 0.5 mg IVPUSH Q4H PRN; Protocol PRN Reason: Pain, Severe (Pain Scale 7-10) Last Admin: 04/03/22 10:36 Dose: 0.5 mg Documented By: KIKE Lactated Ringer's (Lr) 1,000 mls @ 100 mls/hr IVCONT .Q10H [facility] Last Admin: 04/03/22 03:55 Dose: 100 mls/hr Documented By: WING Piperacillin Sod/Tazobactam (Sod 3.375 gm/ Sodium Chloride) 50 mls @ 100 mls/hr IV Q6H [facility] Last Infusion: 04/03/22 05:09 Dose: 0 mls/hr Documented By: WING Cefotetan Disodium 2 gm/ (Sodium Chloride) 50 mls @ 100 mls/hr IV PREOP ONE Stop: 04/03/22 12:28 Insulin Human Lispro (Insulin Lispro 100 Unit/Ml 3 Ml Vial) 0 unit SUBCUT QIDACHS [facility]; Protocol Stop: 04/03/22 14:37 Last Admin: 04/03/22 10:13 Dose: Not Given Documented By: KASANDRA Non-Admin Reason: No Insulin Coverage Insulin Human Lispro (Insulin Lispro 100 Unit/Ml 3 Ml Vial) [facility] Protocol Levetiracetam (Levetiracetam 1,000 Mg Tablet) 1,000 mg PO BID [facility] Last Admin: 04/02/22 20:48 Dose: 1,000 mg Documented By: WING Lisinopril (Lisinopril 40 Mg Tablet) 40 mg PO DAILY [facility]; Protocol Magnesium Oxide (Magnesium Oxide 400 Mg Tablet) 400 mg PO BID [facility] Melatonin (Melatonin 3 Mg Tablet) 6 mg PO BEDTIME [facility] Omeprazole (Omeprazole 20 Mg Capsule.Dr) 20 mg PO DAILY@0630 [facility] Ondansetron HCl (Ondansetron Hcl 4 Mg/2 Ml Vial) 4 mg IVPUSH QID PRN PRN Reason: Nausea Oxycodone HCl (Oxycodone Hcl Immed Release 5 Mg Tablet) 5 mg PO Q6H PRN PRN Reason: Pain, Moderate (Pain Scale 4-6 Pharmacy Consult (Consult Rx Perform Med Rec) 1 each MISCELLANE ONCE PRN PRN Reason: Consult order Ropinirole HCl (Ropinirole Hcl 0.5 Mg Tablet) 0.5 mg PO BEDTIME [facility] Sodium Chloride (0.9 % Sodium Chloride Flush 3 Ml Syringe) 3 ml IVFLUSH QSHIFT [facility] Last Admin: 04/03/22 10:13 Dose: Not Given Documented By: KASANDRA Non-Admin Reason: IV Running Thiamine HCl (Thiamine Hcl 100 Mg Tablet) 100 mg PO DAILY [facility] Labs CBC & Chem 7: 04/03/22 06:50 04/03/22 06:50 Labs: Laboratory Results - last 24 hr 04/02/22 04/02/22 04/03/22 18:01 22:05 06:50 MCV 81.3 MCH 26.7 L MCHC 32.8 RDW 15.2 Plt Count 277 MPV 10.8 Immature Gran % (Auto) 0.4 Neut % (Auto) 47.4 Lymph % (Auto) 40.5 H [place] % (Auto) 6.6 Eos % (Auto) 4.1 H Baso % (Auto) 1.0 Lymph # (Auto) 3.1 [place] # (Auto) 0.5 Eos # (Auto) 0.3 Baso # (Auto) 0.1 Abs Immat Gran (auto) 0.03 Absolute Neuts (auto) 3.7 Absolute Nucleated RBC 0.000 Nucleated RBC % (auto) 0.0 Anion Gap Estim Creat Clear Calc Estimated GFR POC Glucose 107 Random Glucose Calcium Total Bilirubin Direct Bilirubin AST ALT Alkaline Phosphatase Total Protein Albumin COVID-19 ([facility]) Negative COVID-19 Clin Com See Note 04/03/22 04/03/22 04/03/22 06:50 06:50 07:09 MCV MCH MCHC RDW Plt Count MPV Immature Gran % (Auto) Neut % (Auto) Lymph % (Auto) [place] % (Auto) Eos % (Auto) Baso % (Auto) Lymph # (Auto) [place] # (Auto) Eos # (Auto) Baso # (Auto) Abs Immat Gran (auto) Absolute Neuts (auto) Absolute Nucleated RBC Nucleated RBC % (auto) Anion Gap 13 Estim Creat Clear Calc 105.9 Estimated GFR > 60 POC Glucose 138 H Random Glucose 153 H Calcium 8.1 L D Total Bilirubin 1.6 H Direct Bilirubin 0.8 H AST 183 H ALT 192 H Alkaline Phosphatase 256 H Total Protein 6.8 Albumin 3.5 COVID-19 ([facility]) COVID-19 Clin Com Procedures Date of Service Date of Service: 04/03/22 Progress Note: A&P Assessment and plan (1) Cholecystitis, acute with cholelithiasis: Status: Acute Plan 46-year-old female patient with complaints of abdominal pain in the epigastrium right upper quadrant found to have multiple gallstones within the gallbladder. Laboratories revealed markedly elevated LFTs which are improved today. WBC remains normal. HIDA scan revealed delay filling of the gallbladder but no evidence of obstruction of the common bile duct. Findings may be suggestive of chronic cholecystitis. Patient continues to have abdominal tenderness in the right upper quadrant with a positive Carpenter sign. Based on the ultrasound findings and continued abdominal tenderness I recommended a laparoscopic or possible open cholecystectomy. After discussion of the procedure, risks, and alternatives, she consents to the laparoscopic or possible open cholecystectomy. He will be added onto the operative schedule for today. Time Spent With Patient Time: Total time spent is greater than 50% in coordination of care (as documented) at patient's floor/unit and/or counseling patient: Quality Stroke Does the patient have a stroke diagnosis?: Yes Reason for No Anti-thrombotic by Day Two: N/A - Med Ordered VTE Prior VTE?: No VTE Risk Level:: Surgical - very high VTE Device Contraindication: N/A - Device Ordered VTE Drug Contraindication: N/A - Med Ordered
[2022-04-03 13:01] LABS: Cocaine Screen Urine POSITIVE (Not Detect)
[2022-04-03 13:06] LABS: Glucose, Whole Blood 139 mg/dL (60-115)
--- NOTE | 2022-04-03 13:31 | PM.EVENT ---
Event Note Date of Service: 04/03/22 Event Note: Urine tox screen positive for cocaine today. Patient states she has not used cocaine for 2 weeks. Will postpone surgery until later in the week. Will tentatively schedule for Saturday and retest tox screen prior to surgery. Will start clear liquids today.
--- NOTE | 2022-04-03 13:33 | PC.NURSE ---
brought in by pacu team.
[2022-04-03] MEDS: Gabapentin 300 MG CAPSULE 900 MG PO ×2 (14:10→20:27)
[2022-04-03] MEDS: cloNIDine HCL 0.2 MG TABLET PO ×2 (14:10→20:27)
[2022-04-03] MEDS: Folic Acid 1 MG TABLET PO (14:11)
[2022-04-03] MEDS: levETIRAcetam 1,000 MG TABLET 1000 MG PO ×2 (14:11→20:28)
[2022-04-03] MEDS: Magnesium Oxide 400 MG TABLET PO ×2 (14:11→20:28)
[2022-04-03] MEDS: DULoxetine HCl 60 MG CAPSULE.DR PO (14:11)
[2022-04-03] MEDS: Thiamine HCL 100 MG TABLET PO (14:11)
[2022-04-03] MEDS: Doxazosin Mesylate 2 MG TABLET PO (14:11)
[2022-04-03] MEDS: DULoxetine HCl 30 MG CAPSULE.DR PO (14:11)
[2022-04-03 17:28] LABS: Glucose, Whole Blood 237 mg/dL (60-115)
[2022-04-03] MEDS: Insulin Lispro 100 UNIT/ML 3 ML VIAL SUBCUT ×2 (17:40→20:37)
[2022-04-03 17:56] VITALS: BP 147/89; PULSE 80; RESP 16; TEMP 36.6; O2SAT 97
[2022-04-03] MEDS: ondansetron HCL 4 MG/2 ML VIAL IVPUSH (19:22)
[2022-04-03] MEDS: Melatonin 3 MG TABLET 6 MG PO (20:27)
[2022-04-03] MEDS: Docusate Sodium 100 MG CAPSULE PO (20:28)
[2022-04-03 20:36] LABS: Glucose, Whole Blood 205 mg/dL (60-115)
[2022-04-03] MEDS: rOPINIRole HCL 0.5 MG TABLET PO (21:17)
--- NOTE | 2022-04-03 21:21 | PC.NURSE ---
bedtime meds given. pt resting comfortably on stretcher. no current complaints. call wall within reach.
[2022-04-03 23:57] VITALS: BP 101/51; PULSE 70; RESP 16; TEMP 35.9; O2SAT 96
[2022-04-04] VITALS (7 sets, daily range): BP systolic 100–136; BP diastolic 54–82; PULSE 64–82; RESP 15–18; TEMP 36–36.6; O2SAT 94–98
[2022-04-04] MEDS: Lactated Ringers 1,000 ML 100 ML IVCONT ×2 (01:05→17:57)
[2022-04-04] MEDS: 0.9 % Sodium Chloride Flush 3 ML SYRINGE IVFLUSH ×2 (01:08→18:00)
[2022-04-04] MEDS: Piperacillin Sodium/Tazobactam 3.375 GM in 0.9 % Sodium Chloride 50 ML IV ×4 (03:15→21:01)
[2022-04-04] MEDS: HYDROmorphone HCl 0.5 MG/0.5 ML SYRINGE IVPUSH ×2 (03:55→09:38)
[2022-04-04] MEDS: Omeprazole 20 MG CAPSULE.DR PO (05:24)
[2022-04-04] MEDS: oxyCODONE HCl Immed Release 5 MG TABLET PO ×3 (05:29→21:06)
[2022-04-04 07:21] LABS: Glucose, Whole Blood 146 mg/dL (60-115)
--- NOTE | 2022-04-04 09:11 | PC.NURSE ---
plan for surgery saturday
[2022-04-04] MEDS: Gabapentin 300 MG CAPSULE 900 MG PO ×3 (09:22→21:01)
[2022-04-04] MEDS: Magnesium Oxide 400 MG TABLET PO ×2 (09:23→21:01)
[2022-04-04] MEDS: DULoxetine HCl 30 MG CAPSULE.DR PO (09:23)
[2022-04-04] MEDS: Doxazosin Mesylate 2 MG TABLET PO (09:23)
[2022-04-04] MEDS: Thiamine HCL 100 MG TABLET PO (09:23)
[2022-04-04] MEDS: Folic Acid 1 MG TABLET PO (09:23)
[2022-04-04] MEDS: lisinopriL 40 MG TABLET PO (09:23)
[2022-04-04] MEDS: cloNIDine HCL 0.2 MG TABLET PO ×2 (09:23→21:01)
[2022-04-04] MEDS: Docusate Sodium 100 MG CAPSULE PO ×2 (09:23→21:01)
[2022-04-04] MEDS: DULoxetine HCl 60 MG CAPSULE.DR PO (09:24)
[2022-04-04] MEDS: levETIRAcetam 1,000 MG TABLET 1000 MG PO ×2 (09:24→21:01)
--- NOTE | 2022-04-04 10:32 | P.PNIM_ITS ---
Subjective Subjective Date of Service: 04/04/22 Interval History: cc: abd interval history:improved but still with pain Cardiovascular Cardiovascular: Reports no additional cardiovascular complaints Respiratory Respiratory: Reports no additional respiratory complaints Physical Exam Vital Signs: Vital Signs: Last Vital Signs Temp 96.8 F 04/04/22 07:17 Pulse 70 04/04/22 07:17 Resp 16 04/04/22 07:17 BP 136/82 04/04/22 07:17 Pulse Ox 98 04/04/22 07:17 O2 Del Method 04/04/22 07:17 BMI result Body Mass Index 49.3 General: AO X 3, no acute distress Resp: CTA bilateral, no accessory muscles used CVS: S1,S2,RRR GI: soft, RUQ tender, non distended Neuro: motor grossly intact, alert Psych: appropriate affect, appropriate insight Objective Data Active Medications Acetaminophen (Acetaminophen 325 Mg Tablet) 650 mg PO Q6H PRN PRN Reason: Pain, Mild (Pain Scale 1-3) Acetaminophen (Acetaminophen 325 Mg Tablet) 650 mg PO ONCE PRN PRN Reason: Pain, Mild (Pain Scale 1-3) Albuterol Sulfate (Albuterol Sulfate (0.083%) 2.5 Mg/3 Ml Vial.Neb) 2.5 mg INHALE ONCE PRN PRN Reason: Wheezing Clonidine HCl (Clonidine Hcl 0.2 Mg Tablet) 0.2 mg PO BID REPLACED BY [facility]; Protocol Last Admin: 04/04/22 09:23 Dose: 0.2 mg Documented By: IAN Cyclobenzaprine HCl (Cyclobenzaprine Hcl 10 Mg Tablet) 10 mg PO TID PRN PRN Reason: muscle spasm Dextrose (Dextrose 50 % 25 Gm/50 Ml Syringe) 25 gm IVPUSH Q15M PRN; Protocol PRN Reason: per Hypoglycemia Standing Ord. Docusate Sodium (Docusate Sodium 100 Mg Capsule) 100 mg PO BID REPLACED BY [facility] Last Admin: 04/04/22 09:23 Dose: 100 mg Documented By: IAN Doxazosin Mesylate (Doxazosin Mesylate 2 Mg Tablet) 2 mg PO DAILY REPLACED BY [facility]; Protocol Last Admin: 04/04/22 09:23 Dose: 2 mg Documented By: IAN Duloxetine HCl (Duloxetine Hcl 30 Mg Capsule.) 30 mg PO DAILY REPLACED BY [facility] Last Admin: 04/04/22 09:23 Dose: 30 mg Documented By: IAN Duloxetine HCl (Duloxetine Hcl 60 Mg Capsule.Dr) 60 mg PO DAILY REPLACED BY [facility] Last Admin: 04/04/22 09:24 Dose: 60 mg Documented By: IAN Enoxaparin Sodium (Enoxaparin Sodium 40 Mg/0.4 Ml Syringe) 40 mg SUBCUT Q24H REPLACED BY [facility] Last Admin: 04/03/22 14:16 Dose: Not Given Documented By: AGUILAR Non-Admin Reason: Patient Refused Fentanyl (Fentanyl Citrate/Pf 100 Mcg/2 Ml Vial) 25 mcg IVPUSH Q5M PRN; Protocol PRN Reason: Pain, Moderate (Pain Scale 4-6 Fluticasone Propionate (Fluticasone Propionate 100 Mcg Blst.W.Dev) 2 puff INHALE RBID REPLACED BY [facility] Last Admin: 04/04/22 08:12 Dose: Not Given Documented By: RAMSES Non-Admin Reason: Med Not Available Folic Acid (Folic Acid 1 Mg Tablet) 1 mg PO DAILY REPLACED BY [facility] Last Admin: 04/04/22 09:23 Dose: 1 mg Documented By: IAN Gabapentin (Gabapentin 300 Mg Capsule) 900 mg PO TID REPLACED BY [facility] Last Admin: 04/04/22 09:22 Dose: 900 mg Documented By: IAN Glucose (Glucose Gel 15 Gm Gel..Gram.) 15 gm PO Q15M PRN; Protocol PRN Reason: per Hypoglycemia Standing Ord. Hydromorphone HCl (Hydromorphone Hcl 0.5 Mg/0.5 Ml Syringe) 0.5 mg IVPUSH Q4H PRN; Protocol PRN Reason: Pain, Severe (Pain Scale 7-10) Last Admin: 04/04/22 09:38 Dose: 0.5 mg Documented By: IAN Lactated Ringer's (Lr) 1,000 mls @ 100 mls/hr IVCONT .Q10H REPLACED BY [facility] Last Admin: 04/04/22 01:05 Dose: 100 mls/hr Documented By: VALENTÍN Piperacillin Sod/Tazobactam (Sod 3.375 gm/ Sodium Chloride) 50 mls @ 100 mls/hr IV Q6H REPLACED BY [facility] Last Infusion: 04/04/22 10:09 Dose: 0 mls/hr Documented By: IAN Insulin Human Lispro (Insulin Lispro 100 Unit/Ml 3 Ml Vial) 0 unit SUBCUT QIDACHS REPLACED BY [facility]; Protocol Last Admin: 04/04/22 09:24 Dose: Not Given Documented By: IAN Non-Admin Reason: Clear liquid diet Levetiracetam (Levetiracetam 1,000 Mg Tablet) 1,000 mg PO BID REPLACED BY [facility] Last Admin: 04/04/22 09:24 Dose: 1,000 mg Documented By: IAN Lisinopril (Lisinopril 40 Mg Tablet) 40 mg PO DAILY REPLACED BY [facility]; Protocol Last Admin: 04/04/22 09:23 Dose: 40 mg Documented By: IAN Magnesium Oxide (Magnesium Oxide 400 Mg Tablet) 400 mg PO BID REPLACED BY [facility] Last Admin: 04/04/22 09:23 Dose: 400 mg Documented By: IAN Melatonin (Melatonin 3 Mg Tablet) 6 mg PO BEDTIME REPLACED BY [facility] Last Admin: 04/03/22 20:27 Dose: 6 mg Documented By: ADELAIDA Omeprazole (Omeprazole 20 Mg Capsule.Dr) 20 mg PO DAILY@0630 REPLACED BY [facility] Last Admin: 04/04/22 05:24 Dose: 20 mg Documented By: VALENTÍN Ondansetron HCl (Ondansetron Hcl 4 Mg/2 Ml Vial) 4 mg IVPUSH QID PRN PRN Reason: Nausea Last Admin: 04/03/22 19:22 Dose: 4 mg Documented By: ADELAIDA Ondansetron HCl (Ondansetron Hcl 4 Mg/2 Ml Vial) 4 mg IVPUSH ONCE PRN PRN Reason: Nausea and Vomiting Oxycodone HCl (Oxycodone Hcl Immed Release 5 Mg Tablet) 5 mg PO Q6H PRN PRN Reason: Pain, Moderate (Pain Scale 4-6 Last Admin: 04/04/22 05:29 Dose: 5 mg Documented By: VALENTÍN Comments: unable to scan barcode due to ripped package of pill Oxycodone HCl (Oxycodone Hcl Immed Release 5 Mg Tablet) 5 mg PO ONCE PRN PRN Reason: Pain, Severe (Pain Scale 7-10) Pharmacy Consult (Consult Rx Perform Med Rec) 1 each MISCELLANE ONCE PRN PRN Reason: Consult order Ropinirole HCl (Ropinirole Hcl 0.5 Mg Tablet) 0.5 mg PO BEDTIME REPLACED BY [facility] Last Admin: 04/03/22 21:17 Dose: 0.5 mg Documented By: AEDLAIDA Sodium Chloride (0.9 % Sodium Chloride Flush 3 Ml Syringe) 3 ml IVFLUSH QSHIFT REPLACED BY [facility] Last Admin: 04/04/22 09:21 Dose: Not Given Documented By: IAN Non-Admin Reason: IV Running Thiamine HCl (Thiamine Hcl 100 Mg Tablet) 100 mg PO DAILY REPLACED BY [facility] Last Admin: 04/04/22 09:23 Dose: 100 mg Documented By: IAN Labs CBC & Chem 7: 04/03/22 06:50 04/03/22 06:50 Labs: Laboratory Results - last 24 hr 04/03/22 04/03/22 04/03/22 12:35 12:54 17:03 POC Glucose 139 H 237 H Urine Cocaine Screen POSITIVE H 04/03/22 04/04/22 20:26 07:09 POC Glucose 205 H 146 H Urine Cocaine Screen Microbiology Microbiology Results: Microbiology 04/02/22 16:10 Blood Culture - Preliminary Blood - Venous No growth after 24 hours. 04/02/22 16:09 Blood Culture - Preliminary Blood - Venous No growth after 24 hours. 04/02/22 09:09 Urine Culture - Final Urine clean catch - Urine robles top Strep agalactiae (Grp B) Assessment and Plan (1) Cholecystitis, acute with cholelithiasis: Status: Acute (2) Transaminitis: Status: Acute Plan A 46 years old lady with PMH of CVA, diabetes, hypertension, seizure, morbid obesity, depression among others who presents to the hospital with liver right upper quadrant abdominal pain. Acute vs chronic cholecystitis Transaminitis Management by surgical team LFT trending down continue treatment with IV zosyn bacturia No symptoms suggestive of UTI Patient covered with zosyn urine culture with group b strep HTN clonidine, cardura, lisinopril Seizure disorder Continue home Keppra Type 2 diabetes Hold p.o. medications SSI for now morbid obesity outpatient follow up with bariatrics Depression Continue duloxetine and Ativan as needed DVT PPX Lovenox Quality Stroke Does the patient have a stroke diagnosis?: Yes Reason for No Anti-thrombotic by Day Two: N/A - Med Ordered VTE Prior VTE?: No VTE Risk Level:: Surgical - very high VTE Device Contraindication: N/A - Device Ordered VTE Drug Contraindication: N/A - Med Ordered
[2022-04-04 11:31] LABS: Glucose, Whole Blood 148 mg/dL (60-115)
[2022-04-04] MEDS: Enoxaparin Sodium 40 MG/0.4 ML SYRINGE SUBCUT (14:47)
[2022-04-04] MEDS: Insulin Lispro 100 UNIT/ML 3 ML VIAL SUBCUT ×2 (17:56→21:02)
[2022-04-04 18:20] LABS: Glucose, Whole Blood 192 mg/dL (60-115)
[2022-04-04 20:29] LABS: Glucose, Whole Blood 175 mg/dL (60-115)
[2022-04-04 20:40] LABS: Amphetamine Screen Urine Not Detected (Not Detect); Barbiturates, Urine Not Detected (Not Detect); Benzodiazepines Screen Urine Not Detected (Not Detect); Cannabinoid Screen Urine POSITIVE (Not Detect); Cocaine Screen Urine POSITIVE (Not Detect); Fentanyl, urine Not Detected (Not Detect); Opiate Screen Urine POSITIVE (Not Detect); Phencyclidine Screen Urine Not Detected (Not Detect)
[2022-04-04] MEDS: rOPINIRole HCL 0.5 MG TABLET PO (21:38)
[2022-04-04] MEDS: Melatonin 3 MG TABLET 6 MG PO (21:39)
[2022-04-05] VITALS (17 sets, daily range): BP systolic 103–180; BP diastolic 52–80; PULSE 60–91; RESP 14–75; TEMP 36.1–36.6; O2SAT 95–98
[2022-04-05] MEDS: Piperacillin Sodium/Tazobactam 3.375 GM in 0.9 % Sodium Chloride 50 ML IV ×3 (02:19→19:12)
[2022-04-05] MEDS: Lactated Ringers 1,000 ML 100 ML IVCONT ×2 (02:47→18:05)
[2022-04-05] MEDS: Omeprazole 20 MG CAPSULE.DR PO (06:10)
[2022-04-05 06:20] LABS: Hematocrit 36.8 % (37.0-47.0); Hemoglobin 11.7 g/dl (12.0-16.0); Mean Corpuscular HGB Conc 31.8 g/dl (31.0-35.0); Mean Corpuscular Hemoglobin 26.2 pg (27.0-33.0); Mean Corpuscular Volume 82.3 fL (80.0-98.0); Mean Platelet Volume 11.7 fL (9.4-12.3); Platelet Count 248 X10*3/uL (160-400); Red Blood Count 4.47 X10*6/uL (4.20-5.50); Red Cell Distribution Width 15.2 % (11.0-16.0); White Blood Count 7.1 X10*3/uL (4.8-10.8)
[2022-04-05 06:52] LABS: Alanine Aminotransferase 98 U/L (0-31); Albumin Level 3.1 g/dL (3.5-5.0); Alkaline Phosphatase 196 U/L (39-117); Anion Gap 13 (12-20); Aspartate Amino Transferase 52 U/L (5-31); Bilirubin Direct 0.2 mg/dL (0.0-0.5); Bilirubin Total 0.3 mg/dL (0.0-1.0); Blood Urea Nitrogen 10 mg/dL (9-16); Calcium 8.4 mg/dL (8.4-10.2); Carbon Dioxide 28 mmol/L (22-29); Chloride 101 mmol/L (96-108); Creatinine Clr Calc Pharmacy 83.2; Estimated Glomerular Filt Rate > 60; Glucose Fasting 312 mg/dL (60-99); Potassium 4.1 mmol/L (3.3-5.1); Sodium 138 mmol/L (135-145); Total Protein 5.9 g/dL (6.5-8.0)
[2022-04-05 07:20] LABS: Glucose, Whole Blood 271 mg/dL (60-115)
--- NOTE | 2022-04-05 08:15 | PM.PNGS ---
Subjective Subjective Date of Service: 04/05/22 Interval history: Patient with continued abdominal pain in the RUQ. She denies nausea or vomiting. Discussed the results of yesterdays tox screen. Physical Exam Vital Signs: Vital Signs: Last Vital Signs Temp 97 F 04/05/22 07:35 Pulse 79 04/05/22 07:35 Resp 17 04/05/22 07:35 BP 103/52 L 04/05/22 07:35 Pulse Ox 96 04/05/22 07:35 O2 Del Method 04/05/22 07:35 BMI result Body Mass Index 49.3 Const: General: no acute distress Nutritional Appearance: obese Orientation/consciousness: patient oriented x3 Limitations: wheelchair Eyes: Sclerae: sclerae normal Resp: Effort & Inspection: normal respiratory effort GI: Palpation (GI): Soft to palpation, Tenderness to palpation present (GI) in the RUQ and Carpenter's sign positive, no guarding and not rigid Percussion: Yes normal to percussion Neuro: General: patient oriented x3 Extrem: General: Yes no clubbing, cyanosis or edema Objective Data Active Medications Acetaminophen (Acetaminophen 325 Mg Tablet) 650 mg PO Q6H PRN PRN Reason: Pain, Mild (Pain Scale 1-3) Acetaminophen (Acetaminophen 325 Mg Tablet) 650 mg PO ONCE PRN PRN Reason: Pain, Mild (Pain Scale 1-3) Albuterol Sulfate (Albuterol Sulfate (0.083%) 2.5 Mg/3 Ml Vial.Neb) 2.5 mg INHALE ONCE PRN PRN Reason: Wheezing Clonidine HCl (Clonidine Hcl 0.2 Mg Tablet) 0.2 mg PO BID [facility]; Protocol Last Admin: 04/04/22 21:01 Dose: 0.2 mg Documented By: WEST Cyclobenzaprine HCl (Cyclobenzaprine Hcl 10 Mg Tablet) 10 mg PO TID PRN PRN Reason: muscle spasm Dextrose (Dextrose 50 % 25 Gm/50 Ml Syringe) 25 gm IVPUSH Q15M PRN; Protocol PRN Reason: per Hypoglycemia Standing Ord. Docusate Sodium (Docusate Sodium 100 Mg Capsule) 100 mg PO BID [facility] Last Admin: 04/04/22 21:01 Dose: 100 mg Documented By: WEST Doxazosin Mesylate (Doxazosin Mesylate 2 Mg Tablet) 2 mg PO DAILY [facility]; Protocol Last Admin: 04/04/22 09:23 Dose: 2 mg Documented By: IAN Duloxetine HCl (Duloxetine Hcl 30 Mg Capsule.) 30 mg PO DAILY [facility] Last Admin: 04/04/22 09:23 Dose: 30 mg Documented By: IAN Duloxetine HCl (Duloxetine Hcl 60 Mg Capsule.) 60 mg PO DAILY [facility] Last Admin: 04/04/22 09:24 Dose: 60 mg Documented By: IAN Enoxaparin Sodium (Enoxaparin Sodium 40 Mg/0.4 Ml Syringe) 40 mg SUBCUT Q24H [facility] Last Admin: 04/04/22 14:47 Dose: 40 mg Documented By: IAN Fentanyl (Fentanyl Citrate/Pf 100 Mcg/2 Ml Vial) 25 mcg IVPUSH Q5M PRN; Protocol PRN Reason: Pain, Moderate (Pain Scale 4-6 Fluticasone Propionate (Fluticasone Propionate 100 Mcg Blst.W.Dev) 2 puff INHALE RBID [facility] Last Admin: 04/05/22 07:49 Dose: Not Given Documented By: RAMSES Non-Admin Reason: Med Not Available Folic Acid (Folic Acid 1 Mg Tablet) 1 mg PO DAILY [facility] Last Admin: 04/04/22 09:23 Dose: 1 mg Documented By: IAN Gabapentin (Gabapentin 300 Mg Capsule) 900 mg PO TID [facility] Last Admin: 04/04/22 21:01 Dose: 900 mg Documented By: WEST Glucose (Glucose Gel 15 Gm Gel..Gram.) 15 gm PO Q15M PRN; Protocol PRN Reason: per Hypoglycemia Standing Ord. Hydromorphone HCl (Hydromorphone Hcl 0.5 Mg/0.5 Ml Syringe) 0.5 mg IVPUSH Q4H PRN; Protocol PRN Reason: Pain, Severe (Pain Scale 7-10) Last Admin: 04/04/22 09:38 Dose: 0.5 mg Documented By: IAN Lactated Ringer's (Lr) 1,000 mls @ 100 mls/hr IVCONT .Q10H [facility] Last Admin: 04/05/22 02:47 Dose: 100 mls/hr Documented By: MAXIMILIANO Piperacillin Sod/Tazobactam (Sod 3.375 gm/ Sodium Chloride) 50 mls @ 100 mls/hr IV Q6H [facility] Last Infusion: 04/05/22 02:49 Dose: 0 mls/hr Documented By: MAXIMILIANO Insulin Human Lispro (Insulin Lispro 100 Unit/Ml 3 Ml Vial) 0 unit SUBCUT QIDACHS [facility]; Protocol Last Admin: 04/04/22 21:02 Dose: 2 unit Documented By: WEST Levetiracetam (Levetiracetam 1,000 Mg Tablet) 1,000 mg PO BID [facility] Last Admin: 04/04/22 21:01 Dose: 1,000 mg Documented By: WEST Lisinopril (Lisinopril 40 Mg Tablet) 40 mg PO DAILY [facility]; Protocol Last Admin: 04/04/22 09:23 Dose: 40 mg Documented By: IAN Magnesium Oxide (Magnesium Oxide 400 Mg Tablet) 400 mg PO BID [facility] Last Admin: 04/04/22 21:01 Dose: 400 mg Documented By: WEST Melatonin (Melatonin 3 Mg Tablet) 6 mg PO BEDTIME [facility] Last Admin: 04/04/22 21:39 Dose: 6 mg Documented By: WEST Omeprazole (Omeprazole 20 Mg Capsule.Dr) 20 mg PO DAILY@0630 [facility] Last Admin: 04/05/22 06:10 Dose: 20 mg Documented By: MAXIMILIANO Ondansetron HCl (Ondansetron Hcl 4 Mg/2 Ml Vial) 4 mg IVPUSH QID PRN PRN Reason: Nausea Last Admin: 04/03/22 19:22 Dose: 4 mg Documented By: ADELAIDA Ondansetron HCl (Ondansetron Hcl 4 Mg/2 Ml Vial) 4 mg IVPUSH ONCE PRN PRN Reason: Nausea and Vomiting Oxycodone HCl (Oxycodone Hcl Immed Release 5 Mg Tablet) 5 mg PO Q6H PRN PRN Reason: Pain, Moderate (Pain Scale 4-6 Last Admin: 04/04/22 21:06 Dose: 5 mg Documented By: WEST Oxycodone HCl (Oxycodone Hcl Immed Release 5 Mg Tablet) 5 mg PO ONCE PRN PRN Reason: Pain, Severe (Pain Scale 7-10) Pharmacy Consult (Consult Rx Perform Med Rec) 1 each MISCELLANE ONCE PRN PRN Reason: Consult order Ropinirole HCl (Ropinirole Hcl 0.5 Mg Tablet) 0.5 mg PO BEDTIME [facility] Last Admin: 04/04/22 21:38 Dose: 0.5 mg Documented By: WEST Sodium Chloride (0.9 % Sodium Chloride Flush 3 Ml Syringe) 3 ml IVFLUSH QSHIFT [facility] Last Admin: 04/04/22 23:57 Dose: Not Given Documented By: MAXIMILIANO Non-Admin Reason: IV Running Thiamine HCl (Thiamine Hcl 100 Mg Tablet) 100 mg PO DAILY [facility] Last Admin: 04/04/22 09:23 Dose: 100 mg Documented By: IAN Labs CBC & Chem 7: 04/05/22 05:22 04/05/22 05:22 Labs: Laboratory Results - last 24 hr 04/04/22 04/04/22 04/04/22 11:22 16:55 20:05 MCV MCH MCHC RDW Plt Count MPV Absolute Nucleated RBC Nucleated RBC % (auto) Anion Gap Estim Creat Clear Calc Estimated GFR POC Glucose 148 H 192 H 175 H Fasting Glucose Calcium Total Bilirubin Direct Bilirubin AST ALT Alkaline Phosphatase Total Protein Albumin Urine Opiates Screen Urine Fentanyl Screen Ur Barbiturates Screen Ur Phencyclidine Scrn Ur Amphetamines Screen U Benzodiazepines Scrn Urine Cocaine Screen U Marijuana (THC) Screen 04/04/22 04/05/22 04/05/22 20:17 05:22 05:22 MCV 82.3 MCH 26.2 L MCHC 31.8 RDW 15.2 Plt Count 248 MPV 11.7 Absolute Nucleated RBC 0.000 Nucleated RBC % (auto) 0.0 Anion Gap 13 Estim Creat Clear Calc 83.2 Estimated GFR > 60 POC Glucose Fasting Glucose 312 H Calcium 8.4 Total Bilirubin 0.3 Direct Bilirubin 0.2 AST 52 H ALT 98 H Alkaline Phosphatase 196 H D Total Protein 5.9 L Albumin 3.1 L Urine Opiates Screen POSITIVE H Urine Fentanyl Screen Not Detected Ur Barbiturates Screen Not Detected Ur Phencyclidine Scrn Not Detected Ur Amphetamines Screen Not Detected U Benzodiazepines Scrn Not Detected Urine Cocaine Screen POSITIVE H U Marijuana (THC) Screen POSITIVE H 04/05/22 07:14 MCV MCH MCHC RDW Plt Count MPV Absolute Nucleated RBC Nucleated RBC % (auto) Anion Gap Estim Creat Clear Calc Estimated GFR POC Glucose 271 H Fasting Glucose Calcium Total Bilirubin Direct Bilirubin AST ALT Alkaline Phosphatase Total Protein Albumin Urine Opiates Screen Urine Fentanyl Screen Ur Barbiturates Screen Ur Phencyclidine Scrn Ur Amphetamines Screen U Benzodiazepines Scrn Urine Cocaine Screen U Marijuana (THC) Screen Microbiology Microbiology Results: Microbiology 04/02/22 16:10 Blood Culture - Preliminary Blood - Venous No growth after 48 hours. 04/02/22 16:09 Blood Culture - Preliminary Blood - Venous No growth after 48 hours. Procedures Date of Service Date of Service: 04/05/22 Progress Note: A&P Assessment and plan (1) Cholecystitis, acute with cholelithiasis: Status: Acute Plan Patient continues to have abdominal symptoms in the right upper quadrant. Patient's tox screen remains positive. Discussed with anesthesia. Because of the patient's continued abdominal symptoms, I feel the benefits outway the risks of the anesthesia and we should proceed with the laparoscopic cholecystectomy today. The patient agrees with the plan. I again reviewed the procedure, alternatives and risks of the surgery and she consents to the laparoscopic or possible open cholecystectomy. She will be added on to the OR schedule for day. Time Spent With Patient Time: Total time spent is greater than 50% in coordination of care (as documented) at patient's floor/unit and/or counseling patient: Quality Stroke Does the patient have a stroke diagnosis?: Yes Reason for No Anti-thrombotic by Day Two: N/A - Med Ordered VTE Prior VTE?: No VTE Risk Level:: Surgical - very high VTE Device Contraindication: N/A - Device Ordered VTE Drug Contraindication: N/A - Med Ordered
[2022-04-05] MEDS: cloNIDine HCL 0.2 MG TABLET PO ×2 (08:20→19:22)
[2022-04-05] MEDS: Doxazosin Mesylate 2 MG TABLET PO (08:20)
[2022-04-05] MEDS: Gabapentin 300 MG CAPSULE 900 MG PO ×2 (08:20→19:23)
[2022-04-05] MEDS: lisinopriL 40 MG TABLET PO (08:20)
[2022-04-05] MEDS: levETIRAcetam 1,000 MG TABLET 1000 MG PO ×2 (08:20→19:22)
[2022-04-05] MEDS: DULoxetine HCl 60 MG CAPSULE.DR PO (08:21)
[2022-04-05] MEDS: Insulin Lispro 100 UNIT/ML 3 ML VIAL SUBCUT ×3 (08:21→19:35)
[2022-04-05] MEDS: DULoxetine HCl 30 MG CAPSULE.DR PO (08:21)
[2022-04-05] MEDS: oxyCODONE HCl Immed Release 5 MG TABLET PO ×2 (08:23→19:23)
[2022-04-05] MEDS: 0.9 % Sodium Chloride Flush 3 ML SYRINGE IVFLUSH ×2 (08:25→19:31)
--- NOTE | 2022-04-05 10:33 | P.PNIM_ITS ---
Subjective Subjective Date of Service: 04/05/22 Interval History: cc: abd interval history:improved but still with pain Cardiovascular Cardiovascular: Reports no additional cardiovascular complaints Respiratory Respiratory: Reports no additional respiratory complaints Physical Exam Vital Signs: Vital Signs: Last Vital Signs Temp 97 F 04/05/22 07:35 Pulse 60 04/05/22 08:34 Resp 17 04/05/22 07:35 BP 131/80 04/05/22 08:34 Pulse Ox 96 04/05/22 07:35 O2 Del Method 04/05/22 07:35 BMI result Body Mass Index 49.3 Const: General: no acute distress Nutritional Appearance: obese Orientation/consciousness: patient oriented x3 Limitations: wheelchair Eyes: Sclerae: sclerae normal Resp: Effort & Inspection: normal respiratory effort GI: Palpation (GI): Soft to palpation, Tenderness to palpation present (GI) in the RUQ and Carpenter's sign positive, no guarding and not rigid Percussion: Yes normal to percussion Neuro: General: patient oriented x3 Extrem: General: Yes no clubbing, cyanosis or edema Objective Data Active Medications Acetaminophen (Acetaminophen 325 Mg Tablet) 650 mg PO Q6H PRN PRN Reason: Pain, Mild (Pain Scale 1-3) Acetaminophen (Acetaminophen 325 Mg Tablet) 650 mg PO ONCE PRN PRN Reason: Pain, Mild (Pain Scale 1-3) Albuterol Sulfate (Albuterol Sulfate (0.083%) 2.5 Mg/3 Ml Vial.Neb) 2.5 mg INHALE ONCE PRN PRN Reason: Wheezing Clonidine HCl (Clonidine Hcl 0.2 Mg Tablet) 0.2 mg PO BID [facility]; Protocol Last Admin: 04/05/22 08:20 Dose: 0.2 mg Documented By: CHRISTIANO Cyclobenzaprine HCl (Cyclobenzaprine Hcl 10 Mg Tablet) 10 mg PO TID PRN PRN Reason: muscle spasm Dextrose (Dextrose 50 % 25 Gm/50 Ml Syringe) 25 gm IVPUSH Q15M PRN; Protocol PRN Reason: per Hypoglycemia Standing Ord. Docusate Sodium (Docusate Sodium 100 Mg Capsule) 100 mg PO BID [facility] Last Admin: 04/04/22 21:01 Dose: 100 mg Documented By: WEST Doxazosin Mesylate (Doxazosin Mesylate 2 Mg Tablet) 2 mg PO DAILY [facility]; Protocol Last Admin: 04/05/22 08:20 Dose: 2 mg Documented By: CHRISTIANO Duloxetine HCl (Duloxetine Hcl 30 Mg Capsule.) 30 mg PO DAILY [facility] Last Admin: 04/05/22 08:21 Dose: 30 mg Documented By: CHRISTIANO Duloxetine HCl (Duloxetine Hcl 60 Mg Capsule.) 60 mg PO DAILY [facility] Last Admin: 04/05/22 08:21 Dose: 60 mg Documented By: CHRISTIANO Enoxaparin Sodium (Enoxaparin Sodium 40 Mg/0.4 Ml Syringe) 40 mg SUBCUT Q24H [facility] Last Admin: 04/04/22 14:47 Dose: 40 mg Documented By: IAN Fentanyl (Fentanyl Citrate/Pf 100 Mcg/2 Ml Vial) 25 mcg IVPUSH Q5M PRN; Protocol PRN Reason: Pain, Moderate (Pain Scale 4-6 Fluticasone Propionate (Fluticasone Propionate 100 Mcg Blst.W.Dev) 2 puff INHALE RBID [facility] Last Admin: 04/05/22 07:49 Dose: Not Given Documented By: RAMSES Non-Admin Reason: Med Not Available Folic Acid (Folic Acid 1 Mg Tablet) 1 mg PO DAILY [facility] Last Admin: 04/04/22 09:23 Dose: 1 mg Documented By: IAN Gabapentin (Gabapentin 300 Mg Capsule) 900 mg PO TID [facility] Last Admin: 04/05/22 08:20 Dose: 900 mg Documented By: CHRISTIANO Glucose (Glucose Gel 15 Gm Gel..Gram.) 15 gm PO Q15M PRN; Protocol PRN Reason: per Hypoglycemia Standing Ord. Hydromorphone HCl (Hydromorphone Hcl 0.5 Mg/0.5 Ml Syringe) 0.5 mg IVPUSH Q4H PRN; Protocol PRN Reason: Pain, Severe (Pain Scale 7-10) Last Admin: 04/04/22 09:38 Dose: 0.5 mg Documented By: IAN Lactated Ringer's (Lr) 1,000 mls @ 100 mls/hr IVCONT .Q10H [facility] Last Infusion: 04/05/22 09:17 Dose: 100 mls/hr Documented By: CHRISTIANO Piperacillin Sod/Tazobactam (Sod 3.375 gm/ Sodium Chloride) 50 mls @ 100 mls/hr IV Q6H [facility] Last Infusion: 04/05/22 09:17 Dose: 0 mls/hr Documented By: CHRISTIANO Insulin Human Lispro (Insulin Lispro 100 Unit/Ml 3 Ml Vial) 0 unit SUBCUT QIDACHS [facility]; Protocol Last Admin: 04/05/22 08:21 Dose: 6 unit Documented By: CHRISTIANO Levetiracetam (Levetiracetam 1,000 Mg Tablet) 1,000 mg PO BID [facility] Last Admin: 04/05/22 08:20 Dose: 1,000 mg Documented By: CHRISTIANO Lisinopril (Lisinopril 40 Mg Tablet) 40 mg PO DAILY [facility]; Protocol Last Admin: 04/05/22 08:20 Dose: 40 mg Documented By: CHRISTIANO Magnesium Oxide (Magnesium Oxide 400 Mg Tablet) 400 mg PO BID [facility] Last Admin: 04/04/22 21:01 Dose: 400 mg Documented By: WEST Melatonin (Melatonin 3 Mg Tablet) 6 mg PO BEDTIME [facility] Last Admin: 04/04/22 21:39 Dose: 6 mg Documented By: WEST Omeprazole (Omeprazole 20 Mg Capsule.Dr) 20 mg PO DAILY@0630 [facility] Last Admin: 04/05/22 06:10 Dose: 20 mg Documented By: MAXIMILIANO Ondansetron HCl (Ondansetron Hcl 4 Mg/2 Ml Vial) 4 mg IVPUSH QID PRN PRN Reason: Nausea Last Admin: 04/03/22 19:22 Dose: 4 mg Documented By: ADELAIDA Ondansetron HCl (Ondansetron Hcl 4 Mg/2 Ml Vial) 4 mg IVPUSH ONCE PRN PRN Reason: Nausea and Vomiting Oxycodone HCl (Oxycodone Hcl Immed Release 5 Mg Tablet) 5 mg PO Q6H PRN PRN Reason: Pain, Moderate (Pain Scale 4-6 Last Admin: 04/05/22 08:23 Dose: 5 mg Documented By: MARIE Oxycodone HCl (Oxycodone Hcl Immed Release 5 Mg Tablet) 5 mg PO ONCE PRN PRN Reason: Pain, Severe (Pain Scale 7-10) Pharmacy Consult (Consult Rx Perform Med Rec) 1 each MISCELLANE ONCE PRN PRN Reason: Consult order Ropinirole HCl (Ropinirole Hcl 0.5 Mg Tablet) 0.5 mg PO BEDTIME [facility] Last Admin: 04/04/22 21:38 Dose: 0.5 mg Documented By: WEST Sodium Chloride (0.9 % Sodium Chloride Flush 3 Ml Syringe) 3 ml IVFLUSH QSHIFT [facility] Last Admin: 04/05/22 08:25 Dose: 3 ml Documented By: CHRISTIANO Thiamine HCl (Thiamine Hcl 100 Mg Tablet) 100 mg PO DAILY [facility] Last Admin: 04/04/22 09:23 Dose: 100 mg Documented By: IAN Labs CBC & Chem 7: 04/05/22 05:22 04/05/22 05:22 Labs: Laboratory Results - last 24 hr 04/04/22 04/04/22 04/04/22 11:22 16:55 20:05 MCV MCH MCHC RDW Plt Count MPV Absolute Nucleated RBC Nucleated RBC % (auto) Anion Gap Estim Creat Clear Calc Estimated GFR POC Glucose 148 H 192 H 175 H Fasting Glucose Calcium Total Bilirubin Direct Bilirubin AST ALT Alkaline Phosphatase Total Protein Albumin Urine Opiates Screen Urine Fentanyl Screen Ur Barbiturates Screen Ur Phencyclidine Scrn Ur Amphetamines Screen U Benzodiazepines Scrn Urine Cocaine Screen U Marijuana (THC) Screen 04/04/22 04/05/22 04/05/22 20:17 05:22 05:22 MCV 82.3 MCH 26.2 L MCHC 31.8 RDW 15.2 Plt Count 248 MPV 11.7 Absolute Nucleated RBC 0.000 Nucleated RBC % (auto) 0.0 Anion Gap 13 Estim Creat Clear Calc 83.2 Estimated GFR > 60 POC Glucose Fasting Glucose 312 H Calcium 8.4 Total Bilirubin 0.3 Direct Bilirubin 0.2 AST 52 H ALT 98 H Alkaline Phosphatase 196 H D Total Protein 5.9 L Albumin 3.1 L Urine Opiates Screen POSITIVE H Urine Fentanyl Screen Not Detected Ur Barbiturates Screen Not Detected Ur Phencyclidine Scrn Not Detected Ur Amphetamines Screen Not Detected U Benzodiazepines Scrn Not Detected Urine Cocaine Screen POSITIVE H U Marijuana (THC) Screen POSITIVE H 04/05/22 07:14 MCV MCH MCHC RDW Plt Count MPV Absolute Nucleated RBC Nucleated RBC % (auto) Anion Gap Estim Creat Clear Calc Estimated GFR POC Glucose 271 H Fasting Glucose Calcium Total Bilirubin Direct Bilirubin AST ALT Alkaline Phosphatase Total Protein Albumin Urine Opiates Screen Urine Fentanyl Screen Ur Barbiturates Screen Ur Phencyclidine Scrn Ur Amphetamines Screen U Benzodiazepines Scrn Urine Cocaine Screen U Marijuana (THC) Screen Microbiology Microbiology Results: Microbiology 04/02/22 16:10 Blood Culture - Preliminary Blood - Venous No growth after 48 hours. 04/02/22 16:09 Blood Culture - Preliminary Blood - Venous No growth after 48 hours. Assessment and Plan (1) Cholecystitis, acute with cholelithiasis: Status: Acute (2) Transaminitis: Status: Acute Plan A 46 years old lady with PMH of CVA, diabetes, hypertension, seizure, morbid obesity, depression among others who presents to the hospital with liver right upper quadrant abdominal pain. Acute vs chronic cholecystitis iv zosyn plan for CCY today bacturia No symptoms suggestive of UTI Patient covered with zosyn urine culture with group b strep HTN clonidine, cardura, lisinopril Seizure disorder Continue home Keppra Type 2 diabetes Hold p.o. medications SSI for now morbid obesity outpatient follow up with bariatrics Depression Continue duloxetine and Ativan as needed DVT PPX Lovenox Quality Stroke Does the patient have a stroke diagnosis?: Yes Reason for No Anti-thrombotic by Day Two: N/A - Med Ordered VTE Prior VTE?: No VTE Risk Level:: Surgical - very high VTE Device Contraindication: N/A - Device Ordered VTE Drug Contraindication: N/A - Med Ordered
[2022-04-05 11:04] LABS: Glucose, Whole Blood 156 mg/dL (60-115)
--- NOTE | 2022-04-05 11:34 | MHC.CM.PN ---
CM continues to follow patient for d/c planning needs. No medically stable for d/c today.
--- NOTE | 2022-04-05 14:07 | HO.ANESPROP2 ---
HPI - Anesthesia Eval Consult details Narrative: Please see assessment dated 04-03-22. No change since. PMF Active Problems Active Problems: All Active Problems (Updated 04/03/22 @ 09:45 by Wesley Little MD) Cholecystitis, acute with cholelithiasis (Acute) Transaminitis (Acute) Abdominal pain (Acute) UTI (urinary tract infection) (Acute) Major depressive disorder (Acute) Binge eating disorder (Acute) Asthma (Acute) Restless leg syndrome (Acute) Stroke (Acute) GERD (gastroesophageal reflux disease) (Acute) Anxiety (Acute) Depression (Acute) Insomnia (Acute) Neuropathy (Acute) Seizure (Acute) Hypertension (Acute) Insulin dependent type 2 diabetes mellitus (Acute) Morbid obesity (Acute) Past Medical History Medical History Anxiety Asthma Depression GERD (gastroesophageal reflux disease) Hx of completed stroke Hypertension Insomnia Insulin dependent type 2 diabetes mellitus Morbid obesity Neuropathy Restless leg syndrome Seizure Stroke Family History Family History Mother Diabetes Father Diabetes Alcoholism Surgical History Surgical History History of History of Problems with Anesthesia: No Social History Social History Household Members: None Housing: Apartment Do you presently have visiting nurse or other home 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5 mg INHALE ONCE PRN PRN Reason: Wheezing Clonidine HCl (Clonidine Hcl 0.2 Mg Tablet) 0.2 mg PO BID FLORIAN; Protocol Last Admin: 04/05/22 08:20 Dose: 0.2 mg Cyclobenzaprine HCl (Cyclobenzaprine Hcl 10 Mg Tablet) 10 mg PO TID PRN PRN Reason: muscle spasm Dextrose (Dextrose 50 % 25 Gm/50 Ml Syringe) 25 gm IVPUSH Q15M PRN; Protocol PRN Reason: per Hypoglycemia Standing Ord. Docusate Sodium (Docusate Sodium 100 Mg Capsule) 100 mg PO BID [facility] Last Admin: 04/05/22 10:56 Dose: Not Given Doxazosin Mesylate (Doxazosin Mesylate 2 Mg Tablet) 2 mg PO DAILY [facility]; Protocol Last Admin: 04/05/22 08:20 Dose: 2 mg Duloxetine HCl (Duloxetine Hcl 30 Mg Capsule.Dr) 30 mg PO DAILY [facility] Last Admin: 04/05/22 08:21 Dose: 30 mg Duloxetine HCl (Duloxetine Hcl 60 Mg Capsule.Dr) 60 mg PO DAILY [facility] Last Admin: 04/05/22 08:21 Dose: 60 mg Enoxaparin Sodium (Enoxaparin Sodium 40 Mg/0.4 Ml Syringe) 40 mg SUBCUT Q24H [facility] Last Admin: 04/04/22 14:47 Dose: 40 mg Fluticasone Propionate (Fluticasone Propionate 100 Mcg Blst.W.Dev) 2 puff INHALE RBID [facility] Last Admin: 04/05/22 07:49 Dose: Not Given Folic Acid (Folic Acid 1 Mg Tablet) 1 mg PO DAILY [facility] Last Admin: 04/05/22 10:56 Dose: Not Given Gabapentin (Gabapentin 300 Mg Capsule) 900 mg PO TID [facility] Last Admin: 04/05/22 08:20 Dose: 900 mg Glucose (Glucose Gel 15 Gm Gel..Gram.) 15 gm PO Q15M PRN; Protocol PRN Reason: per Hypoglycemia Standing Ord. Hydromorphone HCl (Hydromorphone Hcl 0.5 Mg/0.5 Ml Syringe) 0.5 mg IVPUSH Q4H PRN; Protocol PRN Reason: Pain, Severe (Pain Scale 7-10) Last Admin: 04/04/22 09:38 Dose: 0.5 mg Lactated Ringer's (Lr) 1,000 mls @ 100 mls/hr IVCONT .Q10H [facility] Last Infusion: 04/05/22 13:03 Dose: 0 mls/hr Piperacillin Sod/Tazobactam (Sod 3.375 gm/ Sodium Chloride) 50 mls @ 100 mls/hr IV Q6H [facility] Last Infusion: 04/05/22 09:17 Dose: Infused Insulin Human Lispro (Insulin Lispro 100 Unit/Ml 3 Ml Vial) 0 unit SUBCUT QIDACHS [facility]; Protocol Last Admin: 04/05/22 13:03 Dose: Not Given Levetiracetam (Levetiracetam 1,000 Mg Tablet) 1,000 mg PO BID [facility] Last Admin: 04/05/22 08:20 Dose: 1,000 mg Lisinopril (Lisinopril 40 Mg Tablet) 40 mg PO DAILY [facility]; Protocol Last Admin: 04/05/22 08:20 Dose: 40 mg Magnesium Oxide (Magnesium Oxide 400 Mg Tablet) 400 mg PO BID [facility] Last Admin: 04/05/22 10:56 Dose: Not Given Melatonin (Melatonin 3 Mg Tablet) 6 mg PO BEDTIME [facility] Last Admin: 04/04/22 21:39 Dose: 6 mg Omeprazole (Omeprazole 20 Mg Capsule.Dr) 20 mg PO DAILY@0630 [facility] Last Admin: 04/05/22 06:10 Dose: 20 mg Ondansetron HCl (Ondansetron Hcl 4 Mg/2 Ml Vial) 4 mg IVPUSH QID PRN PRN Reason: Nausea Last Admin: 04/03/22 19:22 Dose: 4 mg Oxycodone HCl (Oxycodone Hcl Immed Release 5 Mg Tablet) 5 mg PO Q6H PRN PRN Reason: Pain, Moderate (Pain Scale 4-6 Last Admin: 04/05/22 08:23 Dose: 5 mg Pharmacy Consult (Consult Rx Perform Med Rec) 1 each MISCELLANE ONCE PRN PRN Reason: Consult order Ropinirole HCl (Ropinirole Hcl 0.5 Mg Tablet) 0.5 mg PO BEDTIME [facility] Last Admin: 04/04/22 21:38 Dose: 0.5 mg Sodium Chloride (0.9 % Sodium Chloride Flush 3 Ml Syringe) 3 ml IVFLUSH QSHIFT [facility] Last Admin: 04/05/22 08:25 Dose: 3 ml Thiamine HCl (Thiamine Hcl 100 Mg Tablet) 100 mg PO DAILY [facility] Last Admin: 04/05/22 10:56 Dose: Not Given Home Medications Medication Instructions Recorded Confirmed Last Taken Type blood sugar diagnostic (FreeStyle #10 ea 11/01/21 04/02/22 Unknown History Lite Strips) blood-glucose meter (FreeStyle #1 ea 11/01/21 04/02/22 Unknown History [place] Lite kit) clonidine HCl 0.2 mg tablet 0.2 mg PO BID 11/01/21 04/02/22 04/01/22 History doxazosin 1 mg tablet 2 mg PO DAILY 11/01/21 04/02/22 04/01/22 History dulaglutide 1.5 mg/0.5 mL 1.5 mg subcut TH@0900 11/01/21 04/02/22 03/29/22 History subcutaneous pen injector (Trulicity) duloxetine 30 mg capsule,delayed 30 mg PO DAILY 11/01/21 04/02/22 04/01/22 History release fluticasone propionate 110 2 puff PO BID 11/01/21 04/02/22 04/01/22 History mcg/actuation HFA aerosol inhaler (Flovent HFA) folic acid 1 mg tablet 1 mg PO DAILY 11/01/21 04/02/22 04/01/22 History gabapentin 600 mg tablet 1,200 mg PO TID 11/01/21 04/02/22 04/01/22 History levetiracetam 1,000 mg tablet 1,000 mg PO BID 11/01/21 04/02/22 04/01/22 History lisinopril 40 mg tablet 40 mg PO DAILY 11/01/21 04/02/22 04/01/22 History magnesium oxide 400 mg (241.3 mg 400 mg PO BID 11/01/21 04/02/22 04/01/22 History magnesium) tablet melatonin 5 mg tablet 5 mg PO BEDTIME 11/01/21 04/02/22 04/01/22 History metformin 1,000 mg tablet 1,000 mg PO BIDWM 11/01/21 04/02/22 04/01/22 History omeprazole 20 mg capsule,delayed 20 mg PO DAILY@0630 11/01/21 04/02/22 04/01/22 History release pen needle, diabetic 31 gauge x #50 ea 11/01/21 04/02/22 Unknown History 16 (Sure Comfort Pen Needle) ropinirole 0.5 mg tablet 0.5 mg PO BEDTIME 11/01/21 04/02/22 04/01/22 History thiamine HCl (vitamin B1) 100 mg 100 mg PO DAILY 11/01/21 04/02/22 04/01/22 History tablet cyclobenzaprine 10 mg tablet 1 tab PO TID PRN muscle spasm 04/02/22 04/02/22 04/01/22 History duloxetine 60 mg capsule,delayed 1 cap PO DAILY 04/02/22 04/02/22 04/01/22 History release insulin lispro 100 unit/mL See Protocol subcut TIDAC 04/02/22 04/02/22 04/01/22 History subcutaneous pen multivitamin 1 tab PO DAILY 04/02/22 04/02/22 04/01/22 History Exam Exam Date and Time: April 05, 2022 140 Height,Weight and Vital Signs: Height 4 ft 8 in Weight 99.79 kg Last Vital Signs Temp 97.0 F 04/05/22 12:59 Pulse 63 04/05/22 12:59 Resp 16 04/05/22 12:59 BP 121/78 04/05/22 12:59 Pulse Ox 96 04/05/22 12:59 O2 Del Method 04/05/22 12:59 Pertinent Lab Results Pertinent Lab Results: Laboratory Tests 04/02/22 04/02/22 04/02/22 05:16 05:16 08:26 WBC 8.7 RBC 5.43 Hgb 14.4 Hct 43.5 MCV 80.1 MCH 26.5 L MCHC 33.1 RDW 15.2 Plt Count 337 MPV 10.9 Immature Gran % (Auto) Neut % (Auto) Lymph % (Auto) Bartholomew % (Auto) Eos % (Auto) Baso % (Auto) Lymph # (Auto) Bartholomew # (Auto) Eos # (Auto) Baso # (Auto) Abs Immat Gran (auto) Absolute Neuts (auto) Absolute Nucleated RBC 0.000 Nucleated RBC % (auto) 0.0 Sodium 137 Potassium 3.7 Chloride 100 Carbon Dioxide 25 Anion Gap 16 BUN 9 Creatinine 0.75 Estim Creat Clear Calc 93.2 Estimated GFR > 60 POC Glucose Random Glucose 273 H Fasting Glucose Calcium 8.8 Total Bilirubin 2.4 H Direct Bilirubin 1.6 H AST 343 H ALT 218 H Alkaline Phosphatase 295 H D Total Protein 7.6 Albumin 3.9 Lipase 89 H Urine Color Dark Yellow Urine Appearance Clear Urine pH 6.0 Ur Specific Solano >= 1.030 H Urine Protein 30 (1+) H Urine Glucose (UA) >=1000 H Urine Ketones Trace Urine Blood Moderate (2+) H Urine Nitrite Negative Ur Leukocyte Esterase Trace H Urine RBC 3-5 H Urine WBC 21-50 H Ur Squamous Epith Cells 11-20 Urine Bacteria 4+ Hyaline Casts 0-2 Urine Test Urine Opiates Screen Urine Fentanyl Screen Ur Barbiturates Screen Ur Phencyclidine Scrn Ur Amphetamines Screen U Benzodiazepines Scrn Urine Cocaine Screen U Marijuana (THC) Screen COVID-19 (PETER) COVID-19 Clin Com 04/02/22 04/02/22 04/02/22 08:26 18:01 22:05 WBC RBC Hgb Hct MCV MCH MCHC RDW Plt Count MPV Immature Gran % (Auto) Neut % (Auto) Lymph % (Auto) Bartholomew % (Auto) Eos % (Auto) Baso % (Auto) Lymph # (Auto) Bartholomew # (Auto) Eos # (Auto) Baso # (Auto) Abs Immat Gran (auto) Absolute Neuts (auto) Absolute Nucleated RBC Nucleated RBC % (auto) Sodium Potassium Chloride Carbon Dioxide Anion Gap BUN Creatinine Estim Creat Clear Calc Estimated GFR POC Glucose 107 Random Glucose Fasting Glucose Calcium Total Bilirubin Direct Bilirubin AST ALT Alkaline Phosphatase Total Protein Albumin Lipase Urine Color Urine Appearance Urine pH Ur Specific [place] Urine Protein Urine Glucose (UA) Urine Ketones Urine Blood Urine Nitrite Ur Leukocyte Esterase Urine RBC Urine WBC Ur Squamous Epith Cells Urine Bacteria Hyaline Casts Urine Test NEGATIVE Urine Opiates Screen Urine Fentanyl Screen Ur Barbiturates Screen Ur Phencyclidine Scrn Ur Amphetamines Screen U Benzodiazepines Scrn Urine Cocaine Screen U Marijuana (THC) Screen COVID-19 (PETER) Negative COVID-19 Clin Com See Note 04/03/22 04/03/22 04/03/22 06:50 06:50 06:50 WBC 7.8 RBC 4.87 Hgb 13.0 Hct 39.6 MCV 81.3 MCH 26.7 L MCHC 32.8 RDW 15.2 Plt Count 277 MPV 10.8 Immature Gran % (Auto) 0.4 Neut % (Auto) 47.4 Lymph % (Auto) 40.5 H Bartholomew % (Auto) 6.6 Eos % (Auto) 4.1 H Baso % (Auto) 1.0 Lymph # (Auto) 3.1 Bartholomew # (Auto) 0.5 Eos # (Auto) 0.3 Baso # (Auto) 0.1 Abs Immat Gran (auto) 0.03 Absolute Neuts (auto) 3.7 Absolute Nucleated RBC 0.000 Nucleated RBC % (auto) 0.0 Sodium 139 Potassium 3.4 Chloride 106 Carbon Dioxide 23 Anion Gap 13 BUN 6 L Creatinine 0.66 Estim Creat Clear Calc 105.9 Estimated GFR > 60 POC Glucose Random Glucose 153 H Fasting Glucose Calcium 8.1 L D Total Bilirubin 1.6 H Direct Bilirubin 0.8 H AST 183 H ALT 192 H Alkaline Phosphatase 256 H Total Protein 6.8 Albumin 3.5 Lipase Urine Color Urine Appearance Urine pH Ur Specific [place] Urine Protein Urine Glucose (UA) Urine Ketones Urine Blood Urine Nitrite Ur Leukocyte Esterase Urine RBC Urine WBC Ur Squamous Epith Cells Urine Bacteria Hyaline Casts Urine Test Urine Opiates Screen Urine Fentanyl Screen Ur Barbiturates Screen Ur Phencyclidine Scrn Ur Amphetamines Screen U Benzodiazepines Scrn Urine Cocaine Screen U Marijuana (THC) Screen COVID-19 (PETER) COVID-19 [employer] 04/03/22 04/03/22 04/03/22 07:09 12:35 12:54 WBC RBC Hgb Hct MCV MCH MCHC RDW Plt Count MPV Immature Gran % (Auto) Neut % (Auto) Lymph % (Auto) Bartholomew % (Auto) Eos % (Auto) Baso % (Auto) Lymph # (Auto) Bartholomew # (Auto) Eos # (Auto) Baso # (Auto) Abs Immat Gran (auto) Absolute Neuts (auto) Absolute Nucleated RBC Nucleated RBC % (auto) Sodium Potassium Chloride Carbon Dioxide Anion Gap BUN Creatinine Estim Creat Clear Calc Estimated GFR POC Glucose 138 H 139 H Random Glucose Fasting Glucose Calcium Total Bilirubin Direct Bilirubin AST ALT Alkaline Phosphatase Total Protein Albumin Lipase Urine Color Urine Appearance Urine pH Ur Specific [place] Urine Protein Urine Glucose (UA) Urine Ketones Urine Blood Urine Nitrite Ur Leukocyte Esterase Urine RBC Urine WBC Ur Squamous Epith Cells Urine Bacteria Hyaline Casts Urine Test Urine Opiates Screen Urine Fentanyl Screen Ur Barbiturates Screen Ur Phencyclidine Scrn Ur Amphetamines Screen U Benzodiazepines Scrn Urine Cocaine Screen POSITIVE H U Marijuana (THC) Screen COVID-19 (PETER) COVID-19 [employer] 04/03/22 04/03/22 04/04/22 17:03 20:26 07:09 WBC RBC Hgb Hct MCV MCH MCHC RDW Plt Count MPV Immature Gran % (Auto) Neut % (Auto) Lymph % (Auto) Bartholomew % (Auto) Eos % (Auto) Baso % (Auto) Lymph # (Auto) Bartholomew # (Auto) Eos # (Auto) Baso # (Auto) Abs Immat Gran (auto) Absolute Neuts (auto) Absolute Nucleated RBC Nucleated RBC % (auto) Sodium Potassium Chloride Carbon Dioxide Anion Gap BUN Creatinine Estim Creat Clear Calc Estimated GFR POC Glucose 237 H 205 H 146 H Random Glucose Fasting Glucose Calcium Total Bilirubin Direct Bilirubin AST ALT Alkaline Phosphatase Total Protein Albumin Lipase Urine Color Urine Appearance Urine pH Ur Specific [place] Urine Protein Urine Glucose (UA) Urine Ketones Urine Blood Urine Nitrite Ur Leukocyte Esterase Urine RBC Urine WBC Ur Squamous Epith Cells Urine Bacteria Hyaline Casts Urine Test Urine Opiates Screen Urine Fentanyl Screen Ur Barbiturates Screen Ur Phencyclidine Scrn Ur Amphetamines Screen U Benzodiazepines Scrn Urine Cocaine Screen U Marijuana (THC) Screen COVID-19 (PETER) [employer] 04/04/22 04/04/22 04/04/22 11:22 16:55 20:05 WBC RBC Hgb Hct MCV MCH MCHC RDW Plt Count MPV Immature Gran % (Auto) Neut % (Auto) Lymph % (Auto) Bartholomew % (Auto) Eos % (Auto) Baso % (Auto) Lymph # (Auto) Bartholomew # (Auto) Eos # (Auto) Baso # (Auto) Abs Immat Gran (auto) Absolute Neuts (auto) Absolute Nucleated RBC Nucleated RBC % (auto) Sodium Potassium Chloride Carbon Dioxide Anion Gap BUN Creatinine Estim Creat Clear Calc Estimated GFR POC Glucose 148 H 192 H 175 H Random Glucose Fasting Glucose Calcium Total Bilirubin Direct Bilirubin AST ALT Alkaline Phosphatase Total Protein Albumin Lipase Urine Color Urine Appearance Urine pH Ur Specific [place] Urine Protein Urine Glucose (UA) Urine Ketones Urine Blood Urine Nitrite Ur Leukocyte Esterase Urine RBC Urine WBC Ur Squamous Epith Cells Urine Bacteria Hyaline Casts Urine Test Urine Opiates Screen Urine Fentanyl Screen Ur Barbiturates Screen Ur Phencyclidine Scrn Ur Amphetamines Screen U Benzodiazepines Scrn Urine Cocaine Screen U Marijuana (THC) Screen COVID-19 (PETER) COVID-19 [employer] 04/04/22 04/05/22 04/05/22 20:17 05:22 05:22 WBC 7.1 RBC 4.47 Hgb 11.7 L Hct 36.8 L MCV 82.3 MCH 26.2 L MCHC 31.8 RDW 15.2 Plt Count 248 MPV 11.7 Immature Gran % (Auto) Neut % (Auto) Lymph % (Auto) Bartholomew % (Auto) Eos % (Auto) Baso % (Auto) Lymph # (Auto) Bartholomew # (Auto) Eos # (Auto) Baso # (Auto) Abs Immat Gran (auto) Absolute Neuts (auto) Absolute Nucleated RBC 0.000 Nucleated RBC % (auto) 0.0 Sodium 138 Potassium 4.1 D Chloride 101 Carbon Dioxide 28 Anion Gap 13 BUN 10 D Creatinine 0.84 Estim Creat Clear Calc 83.2 Estimated GFR > 60 POC Glucose Random Glucose Fasting Glucose 312 H Calcium 8.4 Total Bilirubin 0.3 Direct Bilirubin 0.2 AST 52 H ALT 98 H Alkaline Phosphatase 196 H D Total Protein 5.9 L Albumin 3.1 L Lipase Urine Color Urine Appearance Urine pH Ur Specific [place] Urine Protein Urine Glucose (UA) Urine Ketones Urine Blood Urine Nitrite Ur Leukocyte Esterase Urine RBC Urine WBC Ur Squamous Epith Cells Urine Bacteria Hyaline Casts Urine Test Urine Opiates Screen POSITIVE H Urine Fentanyl Screen Not Detected Ur Barbiturates Screen Not Detected Ur Phencyclidine Scrn Not Detected Ur Amphetamines Screen Not Detected U Benzodiazepines Scrn Not Detected Urine Cocaine Screen POSITIVE H U Marijuana (THC) Screen POSITIVE H COVID-19 (PETER) COVID-19 Clin Com 04/05/22 04/05/22 07:14 10:58 WBC RBC Hgb Hct MCV MCH MCHC RDW Plt Count MPV Immature Gran % (Auto) Neut % (Auto) Lymph % (Auto) Bartholomew % (Auto) Eos % (Auto) Baso % (Auto) Lymph # (Auto) Bartholomew # (Auto) Eos # (Auto) Baso # (Auto) Abs Immat Gran (auto) Absolute Neuts (auto) Absolute Nucleated RBC Nucleated RBC % (auto) Sodium Potassium Chloride Carbon Dioxide Anion Gap BUN Creatinine Estim Creat Clear Calc Estimated GFR POC Glucose 271 H 156 H Random Glucose Fasting Glucose Calcium Total Bilirubin Direct Bilirubin AST ALT Alkaline Phosphatase Total Protein Albumin Lipase Urine Color Urine Appearance Urine pH Ur Specific [place] Urine Protein Urine Glucose (UA) Urine Ketones Urine Blood Urine Nitrite Ur Leukocyte Esterase Urine RBC Urine WBC Ur Squamous Epith Cells Urine Bacteria Hyaline Casts Urine Test Urine Opiates Screen Urine Fentanyl Screen Ur Barbiturates Screen Ur Phencyclidine Scrn Ur Amphetamines Screen U Benzodiazepines Scrn Urine Cocaine Screen U Marijuana (THC) Screen COVID-19 (PETER) COVID-19 Clin Com Assessment and Plan Final Anesthetic Review History of Problems with Anesthesia: No
--- NOTE | 2022-04-05 15:57 | P.OP_ITS ---
Operative Note Operative Note Date of Service: 04/05/22 Narrative: Preoperative diagnosis: acute cholecystitis, cholelithiasis Postoperative diagnosis: Same Procedure: Laparoscopic cholecystectomy Surgeon: Qamar Gaytan MD Label Printing Machinist: NARDA Leo Anesthesia: General endotracheal Indications for procedure: 46-year-old female patient presenting with complaints of abdominal pain in the right upper quadrant found to have distended gallbladder with tenderness in the right upper quadrant. Ultrasound was positive for multiple gallstones within the gallbladder. Findings are suggestive of acute cholecystitis. Operative findings: Acute cholecystitis with multiple small gallstones within the gallbladder Specimen: gallbladder Estimated blood loss: 5 mL Complications: none Procedure details: Patient was brought to the OR and placed in a supine position. After administering general anesthesia the patient's abdomen was prepped with ChloraPrep and draped in a sterile fashion. Local anesthesia consisting of 0.5% Sensorcaine without epinephrine was infiltrated in a periumbilical region. A 5 mm incision was made above the umbilicus in a transverse fashion. The Veress needle was then inserted while elevating abdominal cavity with towel clips. a negative drop test was identified therefore a Rai trocar was inserted through an open incision fascia with direct insertion past peritoneum. The abdomen was then insufflated to a pressure of 15 mmHg. A 12 mm trocar was then placed in the epigastrium. Two 5 mm trocars placed in the right upper quadrant by the hospital medical assistant. The patient was placed in reverse Trendelenburg positioning and rotated to the left. The gallbladder was grasped with the fundus and retracted cephalad by the hospital medical assistant. The infundibulum was then grasped and retracted away from the liver bed, also by the hospital medical assistant. The Dolphin dissected was then used by the surgeon to dissect the peritoneum off the infundibulum to reveal the junction with the cystic duct. Cystic artery was noted slightly medial and posterior to the cystic duct. After obtaining a critical view the cystic duct was doubly clipped and divided. The cystic artery was then doubly clipped and divided. The gallbladder was then dissected off the liver bed using electrocautery with an L hook. Hemostasis was assured all times using the electrocautery. When the gallbladder is completely dissected off the liver bed was placed in an Endo- Catch bag and brought out through the epigastric incision. The gallbladder was sent to pathology for further examination. The abdomen was then re-examined. The liver bed was irrigated and suctioned dry. No bleeding or bile leak could be identified. CO2 was then evacuated and all trocars removed. Fascia was closed at the epigastric incision using a [id number] 0 Polysorb suture. Skin was closed in all incisions using a subcuticular 4 0 Polysorb suture by both the surgeon and hospital medical assistant. Sterile dressings consisting of Steri-Strips, 2 x 2 gauze, and Tegaderm were then applied. The patient tolerated the procedure well. Sponge instrument and needle counts reported as correct. The patient was transferred to PACU in stable condition.
[2022-04-05] MEDS: HYDROmorphone HCl 0.5 MG/0.5 ML SYRINGE 0.25 MG IVPUSH ×3 (16:27→16:45)
[2022-04-05 17:50] LABS: Glucose, Whole Blood 215 mg/dL (60-115)
[2022-04-05] MEDS: HYDROmorphone HCl 0.5 MG/0.5 ML SYRINGE IVPUSH ×2 (18:02→22:48)
[2022-04-05] MEDS: Melatonin 3 MG TABLET 6 MG PO (19:22)
[2022-04-05] MEDS: Magnesium Oxide 400 MG TABLET PO (19:23)
[2022-04-05] MEDS: rOPINIRole HCL 0.5 MG TABLET PO (19:23)
[2022-04-05] MEDS: Docusate Sodium 100 MG CAPSULE PO (19:23)
[2022-04-05 19:39] LABS: Glucose, Whole Blood 231 mg/dL (60-115)
[2022-04-06] VITALS (10 sets, daily range): BP systolic 110–140; BP diastolic 58–72; PULSE 69–77; RESP 17–20; TEMP 36.1–36.7; O2SAT 94–98
[2022-04-06] MEDS: Acetaminophen 325 MG TABLET 650 MG PO ×3 (01:17→13:44)
[2022-04-06] MEDS: oxyCODONE HCl Immed Release 5 MG TABLET PO ×4 (01:18→23:33)
[2022-04-06] MEDS: Piperacillin Sodium/Tazobactam 3.375 GM in 0.9 % Sodium Chloride 50 ML IV ×4 (01:22→20:05)
[2022-04-06] MEDS: Lactated Ringers 1,000 ML 100 ML IVCONT ×3 (05:01→23:34)
[2022-04-06] MEDS: HYDROmorphone HCl 0.5 MG/0.5 ML SYRINGE IVPUSH ×4 (05:06→19:58)
[2022-04-06] MEDS: Omeprazole 20 MG CAPSULE.DR PO (05:07)
--- NOTE | 2022-04-06 06:55 | HO.POSTANES ---
Post Anesthesia Evaluation Post Anesthesia Evaluation Vital Signs: Vital Signs Temp Pulse Resp BP Pulse Ox O2 Del Method 04/06/22 03:23 97 F 77 18 137/60 94 Room Air 04/05/22 23:18 97.2 F 71 16 116/56 L 96 Room Air 04/05/22 19:19 97.0 F 82 16 146/65 H 97 Room Air Anesthesia: General Endotracheal-GETA Mental Status: Awake Pain Control: Satisfactory Nausea/Vomiting: None Hydration: Adequate Anesthesia-Related Issues: No Anes. Related Issues
[2022-04-06 07:44] LABS: Glucose, Whole Blood 246 mg/dL (60-115)
[2022-04-06] MEDS: DULoxetine HCl 60 MG CAPSULE.DR PO (07:48)
[2022-04-06] MEDS: 0.9 % Sodium Chloride Flush 3 ML SYRINGE IVFLUSH ×2 (07:48→15:30)
[2022-04-06] MEDS: Insulin Lispro 100 UNIT/ML 3 ML VIAL SUBCUT ×4 (07:48→20:09)
[2022-04-06] MEDS: Gabapentin 300 MG CAPSULE 900 MG PO ×3 (07:49→20:06)
[2022-04-06] MEDS: levETIRAcetam 1,000 MG TABLET 1000 MG PO ×2 (07:49→20:00)
[2022-04-06] MEDS: Docusate Sodium 100 MG CAPSULE PO ×2 (07:49→20:01)
[2022-04-06] MEDS: lisinopriL 40 MG TABLET PO (07:49)
[2022-04-06] MEDS: Magnesium Oxide 400 MG TABLET PO ×2 (07:49→20:01)
[2022-04-06] MEDS: Folic Acid 1 MG TABLET PO (07:49)
[2022-04-06] MEDS: Doxazosin Mesylate 2 MG TABLET PO (07:49)
[2022-04-06] MEDS: DULoxetine HCl 30 MG CAPSULE.DR PO (07:49)
[2022-04-06] MEDS: Thiamine HCL 100 MG TABLET PO (07:50)
[2022-04-06] MEDS: cloNIDine HCL 0.2 MG TABLET PO ×2 (07:50→20:01)
[2022-04-06] MEDS: Fluticasone Propionate 100 MCG BLST.W.DEV 2 PUFF INHALE ×2 (08:57→20:17)
--- NOTE | 2022-04-06 10:00 | HO.PM.IMPN ---
Subjective Subjective Date of Service: 04/06/22 Interval History: cc: abd interval history:surgical site pain Cardiovascular Cardiovascular: Reports no additional cardiovascular complaints Respiratory Respiratory: Reports no additional respiratory complaints Physical Exam Vital Signs: Vital Signs: Last Vital Signs Temp 98.0 F 04/06/22 08:00 Pulse 69 04/06/22 09:00 Resp 20 04/06/22 09:00 BP 110/62 04/06/22 08:47 Pulse Ox 96 04/06/22 08:47 O2 Del Method 04/06/22 08:47 O2 Flow Rate 2.5 04/05/22 17:49 BMI result Body Mass Index 49.3 General: AO X 3, no acute distress Resp: CTA bilateral, no accessory muscles used CVS: S1,S2,RRR GI: soft, non tender, non distended Neuro: motor grossly intact, alert Psych: appropriate affect, appropriate insight Objective Data Active Medications Acetaminophen (Acetaminophen 325 Mg Tablet) 650 mg PO Q6H PRN PRN Reason: Pain, Mild (Pain Scale 1-3) Last Admin: 04/06/22 07:50 Dose: 650 mg Documented By: MARIE Clonidine HCl (Clonidine Hcl 0.2 Mg Tablet) 0.2 mg PO BID [facility]; Protocol Last Admin: 04/06/22 07:50 Dose: 0.2 mg Documented By: MARIE Cyclobenzaprine HCl (Cyclobenzaprine Hcl 10 Mg Tablet) 10 mg PO TID PRN PRN Reason: muscle spasm Dextrose (Dextrose 50 % 25 Gm/50 Ml Syringe) 25 gm IVPUSH Q15M PRN; Protocol PRN Reason: per Hypoglycemia Standing Ord. Docusate Sodium (Docusate Sodium 100 Mg Capsule) 100 mg PO BID [facility] Last Admin: 04/06/22 07:49 Dose: 100 mg Documented By: MARIE Doxazosin Mesylate (Doxazosin Mesylate 2 Mg Tablet) 2 mg PO DAILY [facility]; Protocol Last Admin: 04/06/22 07:49 Dose: 2 mg Documented By: MARIE Duloxetine HCl (Duloxetine Hcl 30 Mg Capsule.) 30 mg PO DAILY [facility] Last Admin: 04/06/22 07:49 Dose: 30 mg Documented By: MARIE Duloxetine HCl (Duloxetine Hcl 60 Mg Capsule.) 60 mg PO DAILY [facility] Last Admin: 04/06/22 07:48 Dose: 60 mg Documented By: MARIE Enoxaparin Sodium (Enoxaparin Sodium 40 Mg/0.4 Ml Syringe) 40 mg SUBCUT Q24H [facility] Fluticasone Propionate (Fluticasone Propionate 100 Mcg Blst.W.Dev) 2 puff INHALE RBID [facility] Last Admin: 04/06/22 08:57 Dose: 2 puff Documented By: CRUZITO Folic Acid (Folic Acid 1 Mg Tablet) 1 mg PO DAILY [facility] Last Admin: 04/06/22 07:49 Dose: 1 mg Documented By: MARIE Gabapentin (Gabapentin 300 Mg Capsule) 900 mg PO TID [facility] Last Admin: 04/06/22 07:49 Dose: 900 mg Documented By: MARIE Glucose (Glucose Gel 15 Gm Gel..Gram.) 15 gm PO Q15M PRN; Protocol PRN Reason: per Hypoglycemia Standing Ord. Hydromorphone HCl (Hydromorphone Hcl 0.5 Mg/0.5 Ml Syringe) 0.5 mg IVPUSH Q4H PRN; Protocol PRN Reason: Pain, Severe (Pain Scale 7-10) Last Admin: 04/06/22 09:35 Dose: 0.5 mg Documented By: MARIE Lactated Ringer's (Lr) 1,000 mls @ 100 mls/hr IVCONT .Q10H [facility] Last Admin: 04/06/22 05:01 Dose: 100 mls/hr Documented By: DARION Piperacillin Sod/Tazobactam (Sod 3.375 gm/ Sodium Chloride) 50 mls @ 100 mls/hr IV Q6H [facility] Last Infusion: 04/06/22 08:26 Dose: 0 mls/hr Documented By: MARIE Insulin Human Lispro (Insulin Lispro 100 Unit/Ml 3 Ml Vial) 0 unit SUBCUT QIDACHS [facility]; Protocol Last Admin: 04/06/22 07:48 Dose: 4 unit Documented By: MARIE Levetiracetam (Levetiracetam 1,000 Mg Tablet) 1,000 mg PO BID [facility] Last Admin: 04/06/22 07:49 Dose: 1,000 mg Documented By: MARIE Lisinopril (Lisinopril 40 Mg Tablet) 40 mg PO DAILY [facility]; Protocol Last Admin: 04/06/22 07:49 Dose: 40 mg Documented By: MARIE Magnesium Oxide (Magnesium Oxide 400 Mg Tablet) 400 mg PO BID [facility] Last Admin: 04/06/22 07:49 Dose: 400 mg Documented By: MARIE Melatonin (Melatonin 3 Mg Tablet) 6 mg PO BEDTIME [facility] Last Admin: 04/05/22 19:22 Dose: 6 mg Documented By: PERRY Omeprazole (Omeprazole 20 Mg Capsule.Dr) 20 mg PO DAILY@0630 [facility] Last Admin: 04/06/22 05:07 Dose: 20 mg Documented By: DARION Ondansetron HCl (Ondansetron Hcl 4 Mg/2 Ml Vial) 4 mg IVPUSH QID PRN PRN Reason: Nausea Last Admin: 04/03/22 19:22 Dose: 4 mg Documented By: QUINNANAMIKA Oxycodone HCl (Oxycodone Hcl Immed Release 5 Mg Tablet) 5 mg PO Q6H PRN PRN Reason: Pain, Moderate (Pain Scale 4-6 Last Admin: 04/06/22 07:49 Dose: 5 mg Documented By: MARIE Pharmacy Consult (Consult Rx Perform Med Rec) 1 each MISCELLANE ONCE PRN PRN Reason: Consult order Ropinirole HCl (Ropinirole Hcl 0.5 Mg Tablet) 0.5 mg PO BEDTIME [facility] Last Admin: 04/05/22 19:23 Dose: 0.5 mg Documented By: PERRY Sodium Chloride (0.9 % Sodium Chloride Flush 3 Ml Syringe) 3 ml IVFLUSH QSHIFT [facility] Last Admin: 04/06/22 07:48 Dose: 3 ml Documented By: MARIE Thiamine HCl (Thiamine Hcl 100 Mg Tablet) 100 mg PO DAILY [facility] Last Admin: 04/06/22 07:50 Dose: 100 mg Documented By: MARIE Labs CBC & Chem 7: 04/05/22 05:22 04/05/22 05:22 Labs: Laboratory Results - last 24 hr 04/05/22 04/05/22 04/05/22 10:58 17:46 19:30 POC Glucose 156 H 215 H 231 H 04/06/22 07:14 POC Glucose 246 H Assessment and Plan (1) Cholecystitis, acute with cholelithiasis: Status: Acute (2) Transaminitis: Status: Acute Plan A 46 years old lady with PMH of CVA, diabetes, hypertension, seizure, morbid obesity, depression among others who presents to the hospital with liver right upper quadrant abdominal pain. Acute vs chronic cholecystitis iv zosyn pod 1 lap choly bacturia No symptoms suggestive of UTI Patient covered with zosyn urine culture with group b strep HTN clonidine, cardura, lisinopril Seizure disorder Continue home Keppra Type 2 diabetes Hold p.o. medications SSI for now morbid obesity outpatient follow up with bariatrics Depression Continue duloxetine and Ativan as needed DVT PPX Lovenox Quality Stroke Does the patient have a stroke diagnosis?: Yes Reason for No Anti-thrombotic by Day Two: N/A - Med Ordered VTE Prior VTE?: No VTE Risk Level:: Surgical - very high VTE Device Contraindication: N/A - Device Ordered VTE Drug Contraindication: N/A - Med Ordered
[2022-04-06 11:11] LABS: Glucose, Whole Blood 246 mg/dL (60-115)
--- NOTE | 2022-04-06 11:25 | P.PNGS_ITS ---
Subjective Subjective Date of Service: 04/06/22 Interval history: Pod 1 S/P laparoscopic cholecystectomy for acute cholecystitis due to cholelithiasis. She reports incisional pain especially in the umbilicus. She denies nausea or vomiting. Physical Exam Vital Signs: Vital Signs: Last Vital Signs Temp 98.0 F 04/06/22 08:00 Pulse 69 04/06/22 09:00 Resp 20 04/06/22 09:00 BP 110/62 04/06/22 08:47 Pulse Ox 96 04/06/22 08:47 O2 Del Method 04/06/22 08:47 O2 Flow Rate 2.5 04/05/22 17:49 BMI result Body Mass Index 49.3 Const: General: cooperative and no acute distress Nutritional Appearance: well nourished Orientation/consciousness: patient oriented x3 Limitations: no limitations Resp: Effort & Inspection: normal respiratory effort and no cough GI: Other: Trocar site incisions revealed some discharge on the umbilical incision. Remaining incisions are clean and intact. Abdomen otherwise soft and nondistended. Neuro: General: patient oriented x3 Extrem: General: Yes normal to inspection Objective Data Active Medications Acetaminophen (Acetaminophen 325 Mg Tablet) 650 mg PO Q6H PRN PRN Reason: Pain, Mild (Pain Scale 1-3) Last Admin: 04/06/22 07:50 Dose: 650 mg Documented By: MARIE Clonidine HCl (Clonidine Hcl 0.2 Mg Tablet) 0.2 mg PO BID [facility]; Protocol Last Admin: 04/06/22 07:50 Dose: 0.2 mg Documented By: MARIE Cyclobenzaprine HCl (Cyclobenzaprine Hcl 10 Mg Tablet) 10 mg PO TID PRN PRN Reason: muscle spasm Dextrose (Dextrose 50 % 25 Gm/50 Ml Syringe) 25 gm IVPUSH Q15M PRN; Protocol PRN Reason: per Hypoglycemia Standing Ord. Docusate Sodium (Docusate Sodium 100 Mg Capsule) 100 mg PO BID [facility] Last Admin: 04/06/22 07:49 Dose: 100 mg Documented By: MARIE Doxazosin Mesylate (Doxazosin Mesylate 2 Mg Tablet) 2 mg PO DAILY [facility]; Protocol Last Admin: 04/06/22 07:49 Dose: 2 mg Documented By: MARIE Duloxetine HCl (Duloxetine Hcl 30 Mg Capsule.) 30 mg PO DAILY [facility] Last Admin: 04/06/22 07:49 Dose: 30 mg Documented By: MARIE Duloxetine HCl (Duloxetine Hcl 60 Mg Capsule.Dr) 60 mg PO DAILY [facility] Last Admin: 04/06/22 07:48 Dose: 60 mg Documented By: MARIE Enoxaparin Sodium (Enoxaparin Sodium 40 Mg/0.4 Ml Syringe) 40 mg SUBCUT Q24H [facility] Fluticasone Propionate (Fluticasone Propionate 100 Mcg Blst.W.Dev) 2 puff INHALE RBID [facility] Last Admin: 04/06/22 08:57 Dose: 2 puff Documented By: CRUZITO Folic Acid (Folic Acid 1 Mg Tablet) 1 mg PO DAILY [facility] Last Admin: 04/06/22 07:49 Dose: 1 mg Documented By: MARIE Gabapentin (Gabapentin 300 Mg Capsule) 900 mg PO TID [facility] Last Admin: 04/06/22 07:49 Dose: 900 mg Documented By: MARIE Glucose (Glucose Gel 15 Gm Gel..Gram.) 15 gm PO Q15M PRN; Protocol PRN Reason: per Hypoglycemia Standing Ord. Hydromorphone HCl (Hydromorphone Hcl 0.5 Mg/0.5 Ml Syringe) 0.5 mg IVPUSH Q4H PRN; Protocol PRN Reason: Pain, Severe (Pain Scale 7-10) Last Admin: 04/06/22 09:35 Dose: 0.5 mg Documented By: MARIE Lactated Ringer's (Lr) 1,000 mls @ 100 mls/hr IVCONT .Q10H [facility] Last Admin: 04/06/22 05:01 Dose: 100 mls/hr Documented By: DARION Piperacillin Sod/Tazobactam (Sod 3.375 gm/ Sodium Chloride) 50 mls @ 100 mls/hr IV Q6H [facility] Last Infusion: 04/06/22 08:26 Dose: 0 mls/hr Documented By: MARIE Insulin Human Lispro (Insulin Lispro 100 Unit/Ml 3 Ml Vial) 0 unit SUBCUT QIDACHS [facility]; Protocol Last Admin: 04/06/22 07:48 Dose: 4 unit Documented By: MARIE Levetiracetam (Levetiracetam 1,000 Mg Tablet) 1,000 mg PO BID [facility] Last Admin: 04/06/22 07:49 Dose: 1,000 mg Documented By: MARIE Lisinopril (Lisinopril 40 Mg Tablet) 40 mg PO DAILY [facility]; Protocol Last Admin: 04/06/22 07:49 Dose: 40 mg Documented By: MARIE Magnesium Oxide (Magnesium Oxide 400 Mg Tablet) 400 mg PO BID [facility] Last Admin: 04/06/22 07:49 Dose: 400 mg Documented By: MARIE Melatonin (Melatonin 3 Mg Tablet) 6 mg PO BEDTIME [facility] Last Admin: 04/05/22 19:22 Dose: 6 mg Documented By: PERRY Omeprazole (Omeprazole 20 Mg Capsule.Dr) 20 mg PO DAILY@0630 [facility] Last Admin: 04/06/22 05:07 Dose: 20 mg Documented By: DARION Ondansetron HCl (Ondansetron Hcl 4 Mg/2 Ml Vial) 4 mg IVPUSH QID PRN PRN Reason: Nausea Last Admin: 04/03/22 19:22 Dose: 4 mg Documented By: ADELAIDA Oxycodone HCl (Oxycodone Hcl Immed Release 5 Mg Tablet) 5 mg PO Q6H PRN PRN Reason: Pain, Moderate (Pain Scale 4-6 Last Admin: 04/06/22 07:49 Dose: 5 mg Documented By: MARIE Pharmacy Consult (Consult Rx Perform Med Rec) 1 each MISCELLANE ONCE PRN PRN Reason: Consult order Ropinirole HCl (Ropinirole Hcl 0.5 Mg Tablet) 0.5 mg PO BEDTIME [facility] Last Admin: 04/05/22 19:23 Dose: 0.5 mg Documented By: PERRY Sodium Chloride (0.9 % Sodium Chloride Flush 3 Ml Syringe) 3 ml IVFLUSH QSHIFT [facility] Last Admin: 04/06/22 07:48 Dose: 3 ml Documented By: MARIE Thiamine HCl (Thiamine Hcl 100 Mg Tablet) 100 mg PO DAILY [facility] Last Admin: 04/06/22 07:50 Dose: 100 mg Documented By: MARIE Labs CBC & Chem 7: 04/05/22 05:22 04/05/22 05:22 Labs: Laboratory Results - last 24 hr 04/05/22 04/05/22 04/06/22 17:46 19:30 07:14 POC Glucose 215 H 231 H 246 H 04/06/22 11:04 POC Glucose 246 H Procedures Date of Service Date of Service: 04/06/22 Progress Note: A&P Assessment and plan (1) Cholecystitis, acute with cholelithiasis: Status: Acute Plan Pod 1 following laparoscopic cholecystectomy. She remains hemodynamically stable. She was encouraged to get out of bed and ambulate. She has been advanced to regular diet. Will change her dressings later today. Time Spent With Patient Time: Total time spent is greater than 50% in coordination of care (as documented) at patient's floor/unit and/or counseling patient: Quality Stroke Does the patient have a stroke diagnosis?: Yes Reason for No Anti-thrombotic by Day Two: N/A - Med Ordered VTE Prior VTE?: No VTE Risk Level:: Surgical - very high VTE Device Contraindication: N/A - Device Ordered VTE Drug Contraindication: N/A - Med Ordered
[2022-04-06] MEDS: Cyclobenzaprine HCl 10 MG TABLET PO (11:57)
[2022-04-06] MEDS: Enoxaparin Sodium 40 MG/0.4 ML SYRINGE SUBCUT (15:29)
[2022-04-06 15:30] LABS: Glucose, Whole Blood 234 mg/dL (60-115)
[2022-04-06 19:25] LABS: Glucose, Whole Blood 230 mg/dL (60-115)
[2022-04-06] MEDS: rOPINIRole HCL 0.5 MG TABLET PO (20:40)
[2022-04-06] MEDS: Melatonin 3 MG TABLET 6 MG PO (20:40)
[2022-04-07] VITALS (7 sets, daily range): BP systolic 124–168; BP diastolic 63–89; PULSE 71–79; RESP 17–20; TEMP 36.1–36.7; O2SAT 95–98
[2022-04-07] MEDS: Piperacillin Sodium/Tazobactam 3.375 GM in 0.9 % Sodium Chloride 50 ML IV ×2 (02:42→07:43)
[2022-04-07] MEDS: HYDROmorphone HCl 0.5 MG/0.5 ML SYRINGE IVPUSH ×2 (05:42→16:58)
[2022-04-07] MEDS: Omeprazole 20 MG CAPSULE.DR PO (05:42)
[2022-04-07] MEDS: oxyCODONE HCl Immed Release 5 MG TABLET PO ×2 (07:41→09:28)
[2022-04-07] MEDS: DULoxetine HCl 30 MG CAPSULE.DR PO (07:41)
[2022-04-07] MEDS: Gabapentin 300 MG CAPSULE 900 MG PO ×3 (07:41→19:53)
[2022-04-07] MEDS: lisinopriL 40 MG TABLET PO (07:42)
[2022-04-07] MEDS: Acetaminophen 325 MG TABLET 650 MG PO (07:42)
[2022-04-07] MEDS: cloNIDine HCL 0.2 MG TABLET PO ×2 (07:42→19:53)
[2022-04-07] MEDS: DULoxetine HCl 60 MG CAPSULE.DR PO (07:42)
[2022-04-07] MEDS: Folic Acid 1 MG TABLET PO (07:42)
[2022-04-07] MEDS: Docusate Sodium 100 MG CAPSULE PO ×2 (07:42→19:53)
[2022-04-07] MEDS: Magnesium Oxide 400 MG TABLET PO ×2 (07:42→19:53)
[2022-04-07] MEDS: Doxazosin Mesylate 2 MG TABLET PO (07:42)
[2022-04-07] MEDS: levETIRAcetam 1,000 MG TABLET 1000 MG PO ×2 (07:43→19:54)
[2022-04-07] MEDS: Thiamine HCL 100 MG TABLET PO (07:43)
[2022-04-07] MEDS: Lactated Ringers 1,000 ML 100 ML IVCONT (07:43)
[2022-04-07 07:54] LABS: Glucose, Whole Blood 231 mg/dL (60-115)
[2022-04-07] MEDS: Fluticasone Propionate 100 MCG BLST.W.DEV 2 PUFF INHALE ×2 (08:17→19:52)
--- NOTE | 2022-04-07 08:35 | P.PNIM_ITS ---
Subjective Subjective Date of Service: 04/07/22 Interval History: cc: abd interval history:surgical site pain Cardiovascular Cardiovascular: Reports no additional cardiovascular complaints Respiratory Respiratory: Reports no additional respiratory complaints Physical Exam Vital Signs: Vital Signs: Last Vital Signs Temp 97 F 04/07/22 07:46 Pulse 77 04/07/22 08:18 Resp 20 04/07/22 08:18 BP 124/72 04/07/22 07:46 Pulse Ox 98 04/07/22 07:46 O2 Del Method 04/07/22 07:46 O2 Flow Rate 2.5 04/05/22 17:49 BMI result Body Mass Index 49.3 Const: General: cooperative and no acute distress Nutritional Appearance: well nourished Orientation/consciousness: patient oriented x3 Limitations: no limitations Resp: Effort & Inspection: normal respiratory effort and no cough GI: Other: Trocar site incisions revealed some discharge on the umbilical incision. Remaining incisions are clean and intact. Abdomen otherwise soft and nondistended. Neuro: General: patient oriented x3 Extrem: General: Yes normal to inspection Objective Data Active Medications Acetaminophen (Acetaminophen 325 Mg Tablet) 650 mg PO Q6H PRN PRN Reason: Pain, Mild (Pain Scale 1-3) Last Admin: 04/07/22 07:42 Dose: 650 mg Documented By: ADDI Clonidine HCl (Clonidine Hcl 0.2 Mg Tablet) 0.2 mg PO BID [facility]; Protocol Last Admin: 04/07/22 07:42 Dose: 0.2 mg Documented By: ADDI Cyclobenzaprine HCl (Cyclobenzaprine Hcl 10 Mg Tablet) 10 mg PO TID PRN PRN Reason: muscle spasm Last Admin: 04/06/22 11:57 Dose: 10 mg Documented By: MARIE Dextrose (Dextrose 50 % 25 Gm/50 Ml Syringe) 25 gm IVPUSH Q15M PRN; Protocol PRN Reason: per Hypoglycemia Standing Ord. Docusate Sodium (Docusate Sodium 100 Mg Capsule) 100 mg PO BID [facility] Last Admin: 04/07/22 07:42 Dose: 100 mg Documented By: ADDI Doxazosin Mesylate (Doxazosin Mesylate 2 Mg Tablet) 2 mg PO DAILY [facility]; Protocol Last Admin: 04/07/22 07:42 Dose: 2 mg Documented By: ADDI Duloxetine HCl (Duloxetine Hcl 30 Mg Capsule.) 30 mg PO DAILY [facility] Last Admin: 04/07/22 07:41 Dose: 30 mg Documented By: ADDI Duloxetine HCl (Duloxetine Hcl 60 Mg Capsule.) 60 mg PO DAILY [facility] Last Admin: 04/07/22 07:42 Dose: 60 mg Documented By: ADDI Enoxaparin Sodium (Enoxaparin Sodium 40 Mg/0.4 Ml Syringe) 40 mg SUBCUT Q24H [facility] Last Admin: 04/06/22 15:29 Dose: 40 mg Documented By: JULIAN Fluticasone Propionate (Fluticasone Propionate 100 Mcg Blst.W.Dev) 2 puff INHALE RBID [facility] Last Admin: 04/07/22 08:17 Dose: 2 puff Documented By: BREAZAEL Folic Acid (Folic Acid 1 Mg Tablet) 1 mg PO DAILY [facility] Last Admin: 04/07/22 07:42 Dose: 1 mg Documented By: ADDI Gabapentin (Gabapentin 300 Mg Capsule) 900 mg PO TID [facility] Last Admin: 04/07/22 07:41 Dose: 900 mg Documented By: ADDI Glucose (Glucose Gel 15 Gm Gel..Gram.) 15 gm PO Q15M PRN; Protocol PRN Reason: per Hypoglycemia Standing Ord. Hydromorphone HCl (Hydromorphone Hcl 0.5 Mg/0.5 Ml Syringe) 0.5 mg IVPUSH Q4H PRN; Protocol PRN Reason: Pain, Severe (Pain Scale 7-10) Last Admin: 04/07/22 05:42 Dose: 0.5 mg Documented By: LAWRENCE-AKJ Lactated Ringer's (Lr) 1,000 mls @ 100 mls/hr IVCONT .Q10H [facility] Last Admin: 04/07/22 07:43 Dose: 100 mls/hr Documented By: ADDI Piperacillin Sod/Tazobactam (Sod 3.375 gm/ Sodium Chloride) 50 mls @ 100 mls/hr IV Q6H [facility] Last Infusion: 04/07/22 08:29 Dose: 0 mls/hr Documented By: ADDI Insulin Human Lispro (Insulin Lispro 100 Unit/Ml 3 Ml Vial) 0 unit SUBCUT QIDACHS [facility]; Protocol Last Admin: 04/06/22 20:09 Dose: 4 unit Documented By: JULIAN Levetiracetam (Levetiracetam 1,000 Mg Tablet) 1,000 mg PO BID [facility] Last Admin: 04/07/22 07:43 Dose: 1,000 mg Documented By: ADDI Lisinopril (Lisinopril 40 Mg Tablet) 40 mg PO DAILY [facility]; Protocol Last Admin: 04/07/22 07:42 Dose: 40 mg Documented By: ADDI Magnesium Oxide (Magnesium Oxide 400 Mg Tablet) 400 mg PO BID [facility] Last Admin: 04/07/22 07:42 Dose: 400 mg Documented By: ADDI Melatonin (Melatonin 3 Mg Tablet) 6 mg PO BEDTIME [facility] Omeprazole (Omeprazole 20 Mg Capsule.Dr) 20 mg PO DAILY@0630 [facility] Last Admin: 04/07/22 05:42 Dose: 20 mg Documented By: ARIK Ondansetron HCl (Ondansetron Hcl 4 Mg/2 Ml Vial) 4 mg IVPUSH QID PRN PRN Reason: Nausea Last Admin: 04/03/22 19:22 Dose: 4 mg Documented By: ADELAIDA Oxycodone HCl (Oxycodone Hcl Immed Release 5 Mg Tablet) 5 mg PO Q6H PRN PRN Reason: Pain, Moderate (Pain Scale 4-6 Last Admin: 04/07/22 07:41 Dose: 5 mg Documented By: ADDI Pharmacy Consult (Consult Rx Perform Med Rec) 1 each MISCELLANE ONCE PRN PRN Reason: Consult order Ropinirole HCl (Ropinirole Hcl 0.5 Mg Tablet) 0.5 mg PO BEDTIME [facility] Sodium Chloride (0.9 % Sodium Chloride Flush 3 Ml Syringe) 3 ml IVFLUSH QSHIFT [facility] Last Admin: 04/07/22 07:54 Dose: Not Given Documented By: ADDI Non-Admin Reason: IV Running Thiamine HCl (Thiamine Hcl 100 Mg Tablet) 100 mg PO DAILY [facility] Last Admin: 04/07/22 07:43 Dose: 100 mg Documented By: ADDI Labs CBC & Chem 7: 04/05/22 05:22 04/05/22 05:22 Labs: Laboratory Results - last 24 hr 04/06/22 04/06/22 04/06/22 11:04 15:26 19:21 POC Glucose 246 H 234 H 230 H 04/07/22 07:30 POC Glucose 231 H Assessment and Plan (1) Cholecystitis, acute with cholelithiasis: Status: Acute (2) Transaminitis: Status: Acute Plan A 46 years old lady with PMH of CVA, diabetes, hypertension, seizure, morbid obesity, depression among others who presents to the hospital with liver right upper quadrant abdominal pain. Acute vs chronic cholecystitis iv zosyn pod 2 lap choly bacturia No symptoms suggestive of UTI Patient covered with zosyn urine culture with group b strep HTN clonidine, cardura, lisinopril Seizure disorder Continue home Keppra Type 2 diabetes with hyperglycemia Hold p.o. medications add lantus 15 units SSI morbid obesity outpatient follow up with bariatrics Depression Continue duloxetine and Ativan as needed DVT PPX Lovenox Quality Stroke Does the patient have a stroke diagnosis?: Yes Reason for No Anti-thrombotic by Day Two: N/A - Med Ordered VTE Prior VTE?: No VTE Risk Level:: Surgical - very high VTE Device Contraindication: N/A - Device Ordered VTE Drug Contraindication: N/A - Med Ordered
--- NOTE | 2022-04-07 09:00 | PM.PNGS ---
Subjective Subjective Date of Service: 04/07/22 Interval history: Reports abdominal pain in the periumbilical region not help by the current p.o. pain meds. Patient having difficulty getting out of bed. Denies nausea or vomiting. Was able to tolerate a regular diet. Physical Exam Vital Signs: Vital Signs: Last Vital Signs Temp 97 F 04/07/22 07:46 Pulse 77 04/07/22 08:18 Resp 20 04/07/22 08:18 BP 124/72 04/07/22 07:46 Pulse Ox 98 04/07/22 07:46 O2 Del Method 04/07/22 07:46 O2 Flow Rate 2.5 04/05/22 17:49 BMI result Body Mass Index 49.3 Const: Other: Awake and alert, no acute distress. Patient found using cellphone; crying when I entered the room. Resp: Effort & Inspection: normal respiratory effort GI: Other: Abdomen soft and nondistended. Incisions clean and intact. No discharge noted. Skin: Other: Warm, dry, no rash Extrem: Other: No pedal edema Objective Data Active Medications Acetaminophen (Acetaminophen 325 Mg Tablet) 650 mg PO Q6H PRN PRN Reason: Pain, Mild (Pain Scale 1-3) Last Admin: 04/07/22 07:42 Dose: 650 mg Documented By: ADDI Clonidine HCl (Clonidine Hcl 0.2 Mg Tablet) 0.2 mg PO BID [facility]; Protocol Last Admin: 04/07/22 07:42 Dose: 0.2 mg Documented By: ADDI Cyclobenzaprine HCl (Cyclobenzaprine Hcl 10 Mg Tablet) 10 mg PO TID PRN PRN Reason: muscle spasm Last Admin: 04/06/22 11:57 Dose: 10 mg Documented By: MARIE Dextrose (Dextrose 50 % 25 Gm/50 Ml Syringe) 25 gm IVPUSH Q15M PRN; Protocol PRN Reason: per Hypoglycemia Standing Ord. Docusate Sodium (Docusate Sodium 100 Mg Capsule) 100 mg PO BID [facility] Last Admin: 04/07/22 07:42 Dose: 100 mg Documented By: ADDI Doxazosin Mesylate (Doxazosin Mesylate 2 Mg Tablet) 2 mg PO DAILY [facility]; Protocol Last Admin: 04/07/22 07:42 Dose: 2 mg Documented By: ADDI Duloxetine HCl (Duloxetine Hcl 30 Mg Capsule.) 30 mg PO DAILY [facility] Last Admin: 04/07/22 07:41 Dose: 30 mg Documented By: ADDI Duloxetine HCl (Duloxetine Hcl 60 Mg Capsule.) 60 mg PO DAILY [facility] Last Admin: 04/07/22 07:42 Dose: 60 mg Documented By: ADDI Enoxaparin Sodium (Enoxaparin Sodium 40 Mg/0.4 Ml Syringe) 40 mg SUBCUT Q24H [facility] Last Admin: 04/06/22 15:29 Dose: 40 mg Documented By: JULIAN Fluticasone Propionate (Fluticasone Propionate 100 Mcg Blst.W.Dev) 2 puff INHALE RBID [facility] Last Admin: 04/07/22 08:17 Dose: 2 puff Documented By: CRUZITO Folic Acid (Folic Acid 1 Mg Tablet) 1 mg PO DAILY [facility] Last Admin: 04/07/22 07:42 Dose: 1 mg Documented By: ADDI Gabapentin (Gabapentin 300 Mg Capsule) 900 mg PO TID [facility] Last Admin: 04/07/22 07:41 Dose: 900 mg Documented By: ADDI Glucose (Glucose Gel 15 Gm Gel..Gram.) 15 gm PO Q15M PRN; Protocol PRN Reason: per Hypoglycemia Standing Ord. Lactated Ringer's (Lr) 1,000 mls @ 100 mls/hr IVCONT .Q10H [facility] Last Admin: 04/07/22 07:43 Dose: 100 mls/hr Documented By: ADDI Insulin Glargine (Insulin Glargine,Hum.Rec.Anlog 100 Unit/Ml 10 Ml Vial) 15 unit SUBCUT DAILY [facility] Insulin Human Lispro (Insulin Lispro 100 Unit/Ml 3 Ml Vial) 0 unit SUBCUT QIDACHS [facility]; Protocol Last Admin: 04/06/22 20:09 Dose: 4 unit Documented By: JULIAN Levetiracetam (Levetiracetam 1,000 Mg Tablet) 1,000 mg PO BID [facility] Last Admin: 04/07/22 07:43 Dose: 1,000 mg Documented By: ADDI Lisinopril (Lisinopril 40 Mg Tablet) 40 mg PO DAILY [facility]; Protocol Last Admin: 04/07/22 07:42 Dose: 40 mg Documented By: ADDI Magnesium Oxide (Magnesium Oxide 400 Mg Tablet) 400 mg PO BID [facility] Last Admin: 04/07/22 07:42 Dose: 400 mg Documented By: ADDI Melatonin (Melatonin 3 Mg Tablet) 6 mg PO BEDTIME [facility] Omeprazole (Omeprazole 20 Mg Capsule.Dr) 20 mg PO DAILY@0630 [facility] Last Admin: 04/07/22 05:42 Dose: 20 mg Documented By: JOANJ Ondansetron HCl (Ondansetron Hcl 4 Mg/2 Ml Vial) 4 mg IVPUSH QID PRN PRN Reason: Nausea Last Admin: 04/03/22 19:22 Dose: 4 mg Documented By: ADELAIDA Oxycodone HCl (Oxycodone Hcl Immed Release 5 Mg Tablet) 10 mg PO Q4H PRN PRN Reason: Pain, Severe (Pain Scale 7-10) Oxycodone HCl (Oxycodone Hcl Immed Release 5 Mg Tablet) 5 mg PO Q4H PRN PRN Reason: Pain, Moderate (Pain Scale 4-6 Pharmacy Consult (Consult Rx Perform Med Rec) 1 each MISCELLANE ONCE PRN PRN Reason: Consult order Ropinirole HCl (Ropinirole Hcl 0.5 Mg Tablet) 0.5 mg PO BEDTIME [facility] Sodium Chloride (0.9 % Sodium Chloride Flush 3 Ml Syringe) 3 ml IVFLUSH QSHIFT [facility] Last Admin: 04/07/22 07:54 Dose: Not Given Documented By: ADDI Non-Admin Reason: IV Running Thiamine HCl (Thiamine Hcl 100 Mg Tablet) 100 mg PO DAILY [facility] Last Admin: 04/07/22 07:43 Dose: 100 mg Documented By: ADDI Labs CBC & Chem 7: 04/05/22 05:22 04/05/22 05:22 Labs: Laboratory Results - last 24 hr 04/06/22 04/06/22 04/06/22 11:04 15:26 19:21 POC Glucose 246 H 234 H 230 H 04/07/22 07:30 POC Glucose 231 H Procedures Date of Service Date of Service: 04/07/22 Progress Note: A&P Assessment and plan (1) Cholecystitis, acute with cholelithiasis: Status: Acute Plan Overall patient is improved with clean wounds but mainly complaining of incisional pain making it difficult for her to get out of bed. Will DC IV pain medications and increase the p.o. pain meds. DC IV fluids. Anticipate discharge to home tomorrow. Time Spent With Patient Time: Total time spent is greater than 50% in coordination of care (as documented) at patient's floor/unit and/or counseling patient: Quality Stroke Does the patient have a stroke diagnosis?: Yes Reason for No Anti-thrombotic by Day Two: N/A - Med Ordered VTE Prior VTE?: No VTE Risk Level:: Surgical - very high VTE Device Contraindication: N/A - Device Ordered VTE Drug Contraindication: N/A - Med Ordered
[2022-04-07] MEDS: Insulin Lispro 100 UNIT/ML 3 ML VIAL SUBCUT ×4 (09:28→19:54)
[2022-04-07] MEDS: Insulin Glargine,Hum.rec.anlog 100 UNIT/ML 10 ML VIAL 15 UNIT SUBCUT (09:28)
[2022-04-07 11:24] LABS: Glucose, Whole Blood 292 mg/dL (60-115)
[2022-04-07] MEDS: oxyCODONE HCl Immed Release 5 MG TABLET 10 MG PO ×2 (13:29→19:54)
[2022-04-07 14:58] LABS: Glucose, Whole Blood 275 mg/dL (60-115)
[2022-04-07] MEDS: Enoxaparin Sodium 40 MG/0.4 ML SYRINGE SUBCUT (15:27)
[2022-04-07] MEDS: 0.9 % Sodium Chloride Flush 3 ML SYRINGE IVFLUSH (15:27)
[2022-04-07 19:31] LABS: Glucose, Whole Blood 232 mg/dL (60-115)
[2022-04-07] MEDS: Melatonin 3 MG TABLET 6 MG PO (19:54)
[2022-04-07] MEDS: rOPINIRole HCL 0.5 MG TABLET PO (19:54)
[2022-04-08] VITALS (8 sets, daily range): BP systolic 131–156; BP diastolic 62–87; PULSE 69–78; RESP 16–19; TEMP 36.1–36.4; O2SAT 95–98
[2022-04-08] MEDS: HYDROmorphone HCl 0.5 MG/0.5 ML SYRINGE IVPUSH (01:46)
[2022-04-08] MEDS: 0.9 % Sodium Chloride Flush 3 ML SYRINGE IVFLUSH ×2 (03:46→08:08)
[2022-04-08] MEDS: oxyCODONE HCl Immed Release 5 MG TABLET 10 MG PO ×4 (06:00→21:38)
[2022-04-08] MEDS: Omeprazole 20 MG CAPSULE.DR PO (06:00)
[2022-04-08 07:26] LABS: Glucose, Whole Blood 175 mg/dL (60-115)
[2022-04-08] MEDS: Acetaminophen 325 MG TABLET 650 MG PO ×2 (08:05→14:03)
[2022-04-08] MEDS: Insulin Lispro 100 UNIT/ML 3 ML VIAL SUBCUT ×4 (08:06→21:36)
[2022-04-08] MEDS: Insulin Glargine,Hum.rec.anlog 100 UNIT/ML 10 ML VIAL 15 UNIT SUBCUT (08:06)
[2022-04-08] MEDS: DULoxetine HCl 60 MG CAPSULE.DR PO (08:07)
[2022-04-08] MEDS: levETIRAcetam 1,000 MG TABLET 1000 MG PO ×2 (08:07→21:37)
[2022-04-08] MEDS: cloNIDine HCL 0.2 MG TABLET PO ×2 (08:07→21:37)
[2022-04-08] MEDS: Doxazosin Mesylate 2 MG TABLET PO (08:07)
[2022-04-08] MEDS: Docusate Sodium 100 MG CAPSULE PO ×2 (08:07→21:37)
[2022-04-08] MEDS: Magnesium Oxide 400 MG TABLET PO ×2 (08:07→21:37)
[2022-04-08] MEDS: lisinopriL 40 MG TABLET PO (08:08)
[2022-04-08] MEDS: Thiamine HCL 100 MG TABLET PO (08:08)
[2022-04-08] MEDS: Gabapentin 300 MG CAPSULE 900 MG PO ×3 (08:08→21:37)
[2022-04-08] MEDS: DULoxetine HCl 30 MG CAPSULE.DR PO (08:08)
[2022-04-08] MEDS: Folic Acid 1 MG TABLET PO (08:08)
[2022-04-08] MEDS: Fluticasone Propionate 100 MCG BLST.W.DEV 2 PUFF INHALE ×2 (08:28→20:57)
--- NOTE | 2022-04-08 09:15 | PM.PNGS ---
Subjective Subjective Date of Service: 04/08/22 Interval history: Complains of pain in her umbilicus. She is able to tolerate her entire tray without nausea or vomiting. Physical Exam Vital Signs: Vital Signs: Last Vital Signs Temp 97.4 F 04/08/22 07:10 Pulse 72 04/08/22 08:30 Resp 18 04/08/22 08:30 BP 136/84 04/08/22 07:10 Pulse Ox 95 04/08/22 07:10 O2 Del Method 04/08/22 07:10 O2 Flow Rate 2.5 04/05/22 17:49 BMI result Body Mass Index 49.3 Const: Other: Awake and alert, no acute distress. Patient found using cellphone; crying when I entered the room. Resp: Effort & Inspection: normal respiratory effort GI: Other: Abdomen soft and nondistended. Incisions clean and intact. No discharge noted. Umbilical incision is intact without evidence of hernia or infection. Skin: Other: Warm, dry, no rash Extrem: Other: No pedal edema Objective Data Active Medications Acetaminophen (Acetaminophen 325 Mg Tablet) 650 mg PO Q6H PRN PRN Reason: Pain, Mild (Pain Scale 1-3) Last Admin: 04/08/22 08:05 Dose: 650 mg Documented By: ADDI Clonidine HCl (Clonidine Hcl 0.2 Mg Tablet) 0.2 mg PO BID [facility]; Protocol Last Admin: 04/08/22 08:07 Dose: 0.2 mg Documented By: ADDI Cyclobenzaprine HCl (Cyclobenzaprine Hcl 10 Mg Tablet) 10 mg PO TID PRN PRN Reason: muscle spasm Last Admin: 04/06/22 11:57 Dose: 10 mg Documented By: MARIE Dextrose (Dextrose 50 % 25 Gm/50 Ml Syringe) 25 gm IVPUSH Q15M PRN; Protocol PRN Reason: per Hypoglycemia Standing Ord. Docusate Sodium (Docusate Sodium 100 Mg Capsule) 100 mg PO BID [facility] Last Admin: 04/08/22 08:07 Dose: 100 mg Documented By: ADDI Doxazosin Mesylate (Doxazosin Mesylate 2 Mg Tablet) 2 mg PO DAILY [facility]; Protocol Last Admin: 04/08/22 08:07 Dose: 2 mg Documented By: ADDI Duloxetine HCl (Duloxetine Hcl 30 Mg Capsule.) 30 mg PO DAILY [facility] Last Admin: 04/08/22 08:08 Dose: 30 mg Documented By: ADDI Duloxetine HCl (Duloxetine Hcl 60 Mg Capsule.) 60 mg PO DAILY [facility] Last Admin: 04/08/22 08:07 Dose: 60 mg Documented By: ADDI Enoxaparin Sodium (Enoxaparin Sodium 40 Mg/0.4 Ml Syringe) 40 mg SUBCUT Q24H [facility] Last Admin: 04/07/22 15:27 Dose: 40 mg Documented By: ADDI Fluticasone Propionate (Fluticasone Propionate 100 Mcg Blst.W.Dev) 2 puff INHALE RBID [facility] Last Admin: 04/08/22 08:28 Dose: 2 puff Documented By: CRUZITO Folic Acid (Folic Acid 1 Mg Tablet) 1 mg PO DAILY [facility] Last Admin: 04/08/22 08:08 Dose: 1 mg Documented By: ADDI Gabapentin (Gabapentin 300 Mg Capsule) 900 mg PO TID [facility] Last Admin: 04/08/22 08:08 Dose: 900 mg Documented By: ADDI Glucose (Glucose Gel 15 Gm Gel..Gram.) 15 gm PO Q15M PRN; Protocol PRN Reason: per Hypoglycemia Standing Ord. Insulin Glargine (Insulin Glargine,Hum.Rec.Anlog 100 Unit/Ml 10 Ml Vial) 15 unit SUBCUT DAILY [facility] Last Admin: 04/08/22 08:06 Dose: 15 unit Documented By: ADDI Insulin Human Lispro (Insulin Lispro 100 Unit/Ml 3 Ml Vial) 0 unit SUBCUT QIDACHS [facility]; Protocol Last Admin: 04/08/22 08:06 Dose: 2 unit Documented By: ADDI Levetiracetam (Levetiracetam 1,000 Mg Tablet) 1,000 mg PO BID [facility] Last Admin: 04/08/22 08:07 Dose: 1,000 mg Documented By: ADDI Lisinopril (Lisinopril 40 Mg Tablet) 40 mg PO DAILY [facility]; Protocol Last Admin: 04/08/22 08:08 Dose: 40 mg Documented By: ADDI Magnesium Oxide (Magnesium Oxide 400 Mg Tablet) 400 mg PO BID [facility] Last Admin: 04/08/22 08:07 Dose: 400 mg Documented By: ADDI Melatonin (Melatonin 3 Mg Tablet) 6 mg PO BEDTIME [facility] Last Admin: 04/07/22 19:54 Dose: 6 mg Documented By: ARIK Omeprazole (Omeprazole 20 Mg Capsule.Dr) 20 mg PO DAILY@0630 [facility] Last Admin: 04/08/22 06:00 Dose: 20 mg Documented By: ARIK Ondansetron HCl (Ondansetron Hcl 4 Mg/2 Ml Vial) 4 mg IVPUSH QID PRN PRN Reason: Nausea Last Admin: 04/03/22 19:22 Dose: 4 mg Documented By: ADELAIDA Oxycodone HCl (Oxycodone Hcl Immed Release 5 Mg Tablet) 10 mg PO Q4H PRN PRN Reason: Pain, Severe (Pain Scale 7-10) Last Admin: 04/08/22 06:00 Dose: 10 mg Documented By: ARIK Oxycodone HCl (Oxycodone Hcl Immed Release 5 Mg Tablet) 5 mg PO Q4H PRN PRN Reason: Pain, Moderate (Pain Scale 4-6 Last Admin: 04/07/22 09:28 Dose: 5 mg Documented By: ADDI Pharmacy Consult (Consult Rx Perform Med Rec) 1 each MISCELLANE ONCE PRN PRN Reason: Consult order Ropinirole HCl (Ropinirole Hcl 0.5 Mg Tablet) 0.5 mg PO BEDTIME [facility] Last Admin: 04/07/22 19:54 Dose: 0.5 mg Documented By: ARIK Sodium Chloride (0.9 % Sodium Chloride Flush 3 Ml Syringe) 3 ml IVFLUSH QSHIFT [facility] Last Admin: 04/08/22 08:08 Dose: 3 ml Documented By: ADDI Thiamine HCl (Thiamine Hcl 100 Mg Tablet) 100 mg PO DAILY [facility] Last Admin: 04/08/22 08:08 Dose: 100 mg Documented By: ADDI Labs CBC & Chem 7: 04/05/22 05:22 04/05/22 05:22 Labs: Laboratory Results - last 24 hr 04/07/22 04/07/22 04/07/22 11:13 14:48 19:26 POC Glucose 292 H 275 H 232 H 04/08/22 07:21 POC Glucose 175 H Microbiology Microbiology Results: Microbiology 04/02/22 16:10 Blood Culture - Final Blood - Venous No growth after 5 days. 04/02/22 16:09 Blood Culture - Final Blood - Venous No growth after 5 days. Procedures Date of Service Date of Service: 04/08/22 Progress Note: A&P Assessment and plan (1) Cholecystitis, acute with cholelithiasis: Status: Acute Plan 46-year-old female status post laparoscopic cholecystectomy for acute cholecystitis. Surgery needed to be postponed due to a positive tox screen. Patient is now tolerating regular diet without nausea or vomiting. Major issue remains pain control. IV pain meds were stopped yesterday however patient reported severe pain therefore Dilaudid need to be restarted for breakthrough pain. Will stop the Dilaudid again today. Patient understands that she will not be able to be discharged on IV pain medications. Will request physical therapy to assist with out of bed and ambulation. Patient has a prior CVA and reports home physical therapy and [facility]. Time Spent With Patient Time: Total time spent is greater than 50% in coordination of care (as documented) at patient's floor/unit and/or counseling patient: Quality Stroke Does the patient have a stroke diagnosis?: Yes Reason for No Anti-thrombotic by Day Two: N/A - Med Ordered VTE Prior VTE?: No VTE Risk Level:: Surgical - very high VTE Device Contraindication: N/A - Device Ordered VTE Drug Contraindication: N/A - Med Ordered
--- NOTE | 2022-04-08 09:46 | HO.PM.IMPN ---
Subjective Subjective Date of Service: 04/08/22 Interval History: cc: abd interval history:surgical site pain Cardiovascular Cardiovascular: Reports no additional cardiovascular complaints Respiratory Respiratory: Reports no additional respiratory complaints Physical Exam Vital Signs: Vital Signs: Last Vital Signs Temp 97.4 F 04/08/22 07:10 Pulse 72 04/08/22 08:30 Resp 18 04/08/22 08:30 BP 136/84 04/08/22 07:10 Pulse Ox 95 04/08/22 07:10 O2 Del Method 04/08/22 07:10 O2 Flow Rate 2.5 04/05/22 17:49 BMI result Body Mass Index 49.3 Const: Other: Awake and alert, no acute distress. Patient found using cellphone; crying when I entered the room. Resp: Effort & Inspection: normal respiratory effort GI: Other: Abdomen soft and nondistended. Incisions clean and intact. No discharge noted. Umbilical incision is intact without evidence of hernia or infection. Skin: Other: Warm, dry, no rash Extrem: Other: No pedal edema Objective Data Active Medications Acetaminophen (Acetaminophen 325 Mg Tablet) 650 mg PO Q6H PRN PRN Reason: Pain, Mild (Pain Scale 1-3) Last Admin: 04/08/22 08:05 Dose: 650 mg Documented By: ADDI Clonidine HCl (Clonidine Hcl 0.2 Mg Tablet) 0.2 mg PO BID [facility]; Protocol Last Admin: 04/08/22 08:07 Dose: 0.2 mg Documented By: ADDI Cyclobenzaprine HCl (Cyclobenzaprine Hcl 10 Mg Tablet) 10 mg PO TID PRN PRN Reason: muscle spasm Last Admin: 04/06/22 11:57 Dose: 10 mg Documented By: MARIE Dextrose (Dextrose 50 % 25 Gm/50 Ml Syringe) 25 gm IVPUSH Q15M PRN; Protocol PRN Reason: per Hypoglycemia Standing Ord. Docusate Sodium (Docusate Sodium 100 Mg Capsule) 100 mg PO BID [facility] Last Admin: 04/08/22 08:07 Dose: 100 mg Documented By: ADDI Doxazosin Mesylate (Doxazosin Mesylate 2 Mg Tablet) 2 mg PO DAILY [facility]; Protocol Last Admin: 04/08/22 08:07 Dose: 2 mg Documented By: ADDI Duloxetine HCl (Duloxetine Hcl 30 Mg Capsule.) 30 mg PO DAILY [facility] Last Admin: 04/08/22 08:08 Dose: 30 mg Documented By: ADDI Duloxetine HCl (Duloxetine Hcl 60 Mg Capsule.) 60 mg PO DAILY [facility] Last Admin: 04/08/22 08:07 Dose: 60 mg Documented By: ADDI Enoxaparin Sodium (Enoxaparin Sodium 40 Mg/0.4 Ml Syringe) 40 mg SUBCUT Q24H [facility] Last Admin: 04/07/22 15:27 Dose: 40 mg Documented By: ADDI Fluticasone Propionate (Fluticasone Propionate 100 Mcg Blst.W.Dev) 2 puff INHALE RBID [facility] Last Admin: 04/08/22 08:28 Dose: 2 puff Documented By: CRUZITO Folic Acid (Folic Acid 1 Mg Tablet) 1 mg PO DAILY [facility] Last Admin: 04/08/22 08:08 Dose: 1 mg Documented By: ADDI Gabapentin (Gabapentin 300 Mg Capsule) 900 mg PO TID [facility] Last Admin: 04/08/22 08:08 Dose: 900 mg Documented By: ADDI Glucose (Glucose Gel 15 Gm Gel..Gram.) 15 gm PO Q15M PRN; Protocol PRN Reason: per Hypoglycemia Standing Ord. Insulin Glargine (Insulin Glargine,Hum.Rec.Anlog 100 Unit/Ml 10 Ml Vial) 15 unit SUBCUT DAILY [facility] Last Admin: 04/08/22 08:06 Dose: 15 unit Documented By: ADDI Insulin Human Lispro (Insulin Lispro 100 Unit/Ml 3 Ml Vial) 0 unit SUBCUT QIDACHS [facility]; Protocol Last Admin: 04/08/22 08:06 Dose: 2 unit Documented By: ADDI Levetiracetam (Levetiracetam 1,000 Mg Tablet) 1,000 mg PO BID [facility] Last Admin: 04/08/22 08:07 Dose: 1,000 mg Documented By: ADDI Lisinopril (Lisinopril 40 Mg Tablet) 40 mg PO DAILY [facility]; Protocol Last Admin: 04/08/22 08:08 Dose: 40 mg Documented By: ADDI Magnesium Oxide (Magnesium Oxide 400 Mg Tablet) 400 mg PO BID [facility] Last Admin: 04/08/22 08:07 Dose: 400 mg Documented By: ADDI Melatonin (Melatonin 3 Mg Tablet) 6 mg PO BEDTIME [facility] Last Admin: 04/07/22 19:54 Dose: 6 mg Documented By: ARIK Omeprazole (Omeprazole 20 Mg Capsule.Dr) 20 mg PO DAILY@0630 [facility] Last Admin: 04/08/22 06:00 Dose: 20 mg Documented By: ARIK Ondansetron HCl (Ondansetron Hcl 4 Mg/2 Ml Vial) 4 mg IVPUSH QID PRN PRN Reason: Nausea Last Admin: 04/03/22 19:22 Dose: 4 mg Documented By: ADELAIDA Oxycodone HCl (Oxycodone Hcl Immed Release 5 Mg Tablet) 10 mg PO Q4H PRN PRN Reason: Pain, Severe (Pain Scale 7-10) Last Admin: 04/08/22 06:00 Dose: 10 mg Documented By: ARIK Oxycodone HCl (Oxycodone Hcl Immed Release 5 Mg Tablet) 5 mg PO Q4H PRN PRN Reason: Pain, Moderate (Pain Scale 4-6 Last Admin: 04/07/22 09:28 Dose: 5 mg Documented By: ADDI Pharmacy Consult (Consult Rx Perform Med Rec) 1 each MISCELLANE ONCE PRN PRN Reason: Consult order Ropinirole HCl (Ropinirole Hcl 0.5 Mg Tablet) 0.5 mg PO BEDTIME [facility] Last Admin: 04/07/22 19:54 Dose: 0.5 mg Documented By: ARIK Sodium Chloride (0.9 % Sodium Chloride Flush 3 Ml Syringe) 3 ml IVFLUSH QSHIFT [facility] Last Admin: 04/08/22 08:08 Dose: 3 ml Documented By: ADDI Thiamine HCl (Thiamine Hcl 100 Mg Tablet) 100 mg PO DAILY [facility] Last Admin: 04/08/22 08:08 Dose: 100 mg Documented By: ADDI Labs CBC & Chem 7: 04/05/22 05:22 04/05/22 05:22 Labs: Laboratory Results - last 24 hr 04/07/22 04/07/22 04/07/22 11:13 14:48 19:26 POC Glucose 292 H 275 H 232 H 04/08/22 07:21 POC Glucose 175 H Microbiology Microbiology Results: Microbiology 04/02/22 16:10 Blood Culture - Final Blood - Venous No growth after 5 days. 04/02/22 16:09 Blood Culture - Final Blood - Venous No growth after 5 days. Assessment and Plan (1) Cholecystitis, acute with cholelithiasis: Status: Acute (2) Transaminitis: Status: Acute Plan A 46 years old lady with PMH of CVA, diabetes, hypertension, seizure, morbid obesity, depression among others who presents to the hospital with liver right upper quadrant abdominal pain. Acute vs chronic cholecystitis iv zosyn pod 3 lap choly bacturia No symptoms suggestive of UTI Patient covered with zosyn urine culture with group b strep HTN clonidine, cardura, lisinopril Seizure disorder Continue home Keppra Type 2 diabetes with hyperglycemia Hold p.o. medications added lantus 15 units SSI better controlled now morbid obesity outpatient follow up with bariatrics Depression Continue duloxetine and Ativan as needed DVT PPX Lovenox Quality Stroke Does the patient have a stroke diagnosis?: Yes Reason for No Anti-thrombotic by Day Two: N/A - Med Ordered VTE Prior VTE?: No VTE Risk Level:: Surgical - very high VTE Device Contraindication: N/A - Device Ordered VTE Drug Contraindication: N/A - Med Ordered
[2022-04-08 11:18] LABS: Glucose, Whole Blood 236 mg/dL (60-115)
--- NOTE | 2022-04-08 11:50 | MHC.CM.PN ---
CURRENTLY MANAGING PAIN. NO PLAN FOR DC TODAY
[2022-04-08 16:07] LABS: Glucose, Whole Blood 302 mg/dL (60-115)
[2022-04-08] MEDS: Enoxaparin Sodium 40 MG/0.4 ML SYRINGE SUBCUT (17:30)
[2022-04-08 19:26] LABS: Glucose, Whole Blood 265 mg/dL (60-115)
[2022-04-08] MEDS: Melatonin 3 MG TABLET 6 MG PO (21:37)
[2022-04-08] MEDS: rOPINIRole HCL 0.5 MG TABLET PO (21:37)
[2022-04-09] MEDS: Acetaminophen 325 MG TABLET 650 MG PO (00:05)
[2022-04-09] MEDS: 0.9 % Sodium Chloride Flush 3 ML SYRINGE IVFLUSH ×3 (02:52→12:15)
[2022-04-09 04:00] VITALS: BP 119/56; PULSE 68; RESP 17; TEMP 36; O2SAT 98
[2022-04-09] MEDS: oxyCODONE HCl Immed Release 5 MG TABLET 10 MG PO ×2 (04:58→09:30)
[2022-04-09] MEDS: Omeprazole 20 MG CAPSULE.DR PO (04:59)
[2022-04-09 07:37] VITALS: BP 154/90; PULSE 71; RESP 18; TEMP 36.4; O2SAT 95
[2022-04-09 07:49] LABS: Glucose, Whole Blood 216 mg/dL (60-115)
--- NOTE | 2022-04-09 07:54 | PM.PNGS ---
Subjective Subjective Date of Service: 04/09/22 Interval history: c/o incisional pain although better good oral intake says she feels ready to be discharged Physical Exam Vital Signs: Vital Signs: Last Vital Signs Temp 97.5 F 04/09/22 07:37 Pulse 71 04/09/22 07:37 Resp 18 04/09/22 07:37 BP 154/90 H 04/09/22 07:37 Pulse Ox 95 04/09/22 07:37 O2 Del Method 04/09/22 07:37 O2 Flow Rate 2.5 04/05/22 17:49 BMI result Body Mass Index 49.3 Const: General: comfortable and no acute distress Resp: Effort & Inspection: normal respiratory effort Cardio: Rate: regular rate GI: Other: soft, incisions clean, not infected Palpation (GI): no guarding Objective Data Active Medications Acetaminophen (Acetaminophen 325 Mg Tablet) 650 mg PO Q6H PRN PRN Reason: Pain, Mild (Pain Scale 1-3) Last Admin: 04/09/22 00:05 Dose: 650 mg Documented By: ARIK Clonidine HCl (Clonidine Hcl 0.2 Mg Tablet) 0.2 mg PO BID [facility]; Protocol Last Admin: 04/08/22 21:37 Dose: 0.2 mg Documented By: ARIK Cyclobenzaprine HCl (Cyclobenzaprine Hcl 10 Mg Tablet) 10 mg PO TID PRN PRN Reason: muscle spasm Last Admin: 04/06/22 11:57 Dose: 10 mg Documented By: MARIE Dextrose (Dextrose 50 % 25 Gm/50 Ml Syringe) 25 gm IVPUSH Q15M PRN; Protocol PRN Reason: per Hypoglycemia Standing Ord. Docusate Sodium (Docusate Sodium 100 Mg Capsule) 100 mg PO BID [facility] Last Admin: 04/08/22 21:37 Dose: 100 mg Documented By: ARIK Doxazosin Mesylate (Doxazosin Mesylate 2 Mg Tablet) 2 mg PO DAILY [facility]; Protocol Last Admin: 04/08/22 08:07 Dose: 2 mg Documented By: ADDI Duloxetine HCl (Duloxetine Hcl 30 Mg Capsule.) 30 mg PO DAILY [facility] Last Admin: 04/08/22 08:08 Dose: 30 mg Documented By: ADDI Duloxetine HCl (Duloxetine Hcl 60 Mg Capsule.) 60 mg PO DAILY [facility] Last Admin: 04/08/22 08:07 Dose: 60 mg Documented By: ADDI Enoxaparin Sodium (Enoxaparin Sodium 40 Mg/0.4 Ml Syringe) 40 mg SUBCUT Q24H [facility] Last Admin: 04/08/22 17:30 Dose: 40 mg Documented By: ADDI Fluticasone Propionate (Fluticasone Propionate 100 Mcg Blst.W.Dev) 2 puff INHALE RBID [facility] Last Admin: 04/08/22 20:57 Dose: 2 puff Documented By: BREANA Folic Acid (Folic Acid 1 Mg Tablet) 1 mg PO DAILY [facility] Last Admin: 04/08/22 08:08 Dose: 1 mg Documented By: ADDI Gabapentin (Gabapentin 300 Mg Capsule) 900 mg PO TID [facility] Last Admin: 04/08/22 21:37 Dose: 900 mg Documented By: ARIK Glucose (Glucose Gel 15 Gm Gel..Gram.) 15 gm PO Q15M PRN; Protocol PRN Reason: per Hypoglycemia Standing Ord. Insulin Glargine (Insulin Glargine,Hum.Rec.Anlog 100 Unit/Ml 10 Ml Vial) 15 unit SUBCUT DAILY [facility] Last Admin: 04/08/22 08:06 Dose: 15 unit Documented By: ADDI Insulin Human Lispro (Insulin Lispro 100 Unit/Ml 3 Ml Vial) 0 unit SUBCUT QIDACHS [facility]; Protocol Last Admin: 04/08/22 21:36 Dose: 6 unit Documented By: ARIK Levetiracetam (Levetiracetam 1,000 Mg Tablet) 1,000 mg PO BID [facility] Last Admin: 04/08/22 21:37 Dose: 1,000 mg Documented By: ARIK Lisinopril (Lisinopril 40 Mg Tablet) 40 mg PO DAILY [facility]; Protocol Last Admin: 04/08/22 08:08 Dose: 40 mg Documented By: ADDI Magnesium Oxide (Magnesium Oxide 400 Mg Tablet) 400 mg PO BID [facility] Last Admin: 04/08/22 21:37 Dose: 400 mg Documented By: ARIK Melatonin (Melatonin 3 Mg Tablet) 6 mg PO BEDTIME [facility] Last Admin: 04/08/22 21:37 Dose: 6 mg Documented By: ARIK Omeprazole (Omeprazole 20 Mg Capsule.Dr) 20 mg PO DAILY@0630 [facility] Last Admin: 04/09/22 04:59 Dose: 20 mg Documented By: ARIK Ondansetron HCl (Ondansetron Hcl 4 Mg/2 Ml Vial) 4 mg IVPUSH QID PRN PRN Reason: Nausea Last Admin: 04/03/22 19:22 Dose: 4 mg Documented By: ADELAIDA Oxycodone HCl (Oxycodone Hcl Immed Release 5 Mg Tablet) 10 mg PO Q4H PRN PRN Reason: Pain, Severe (Pain Scale 7-10) Last Admin: 04/09/22 04:58 Dose: 10 mg Documented By: ARIK Oxycodone HCl (Oxycodone Hcl Immed Release 5 Mg Tablet) 5 mg PO Q4H PRN PRN Reason: Pain, Moderate (Pain Scale 4-6 Last Admin: 04/07/22 09:28 Dose: 5 mg Documented By: ADDI Pharmacy Consult (Consult Rx Perform Med Rec) 1 each MISCELLANE ONCE PRN PRN Reason: Consult order Ropinirole HCl (Ropinirole Hcl 0.5 Mg Tablet) 0.5 mg PO BEDTIME [facility] Last Admin: 04/08/22 21:37 Dose: 0.5 mg Documented By: ARIK Sodium Chloride (0.9 % Sodium Chloride Flush 3 Ml Syringe) 3 ml IVFLUSH QSHIFT [facility] Last Admin: 04/09/22 02:52 Dose: 3 ml Documented By: ARIK Thiamine HCl (Thiamine Hcl 100 Mg Tablet) 100 mg PO DAILY [facility] Last Admin: 04/08/22 08:08 Dose: 100 mg Documented By: ADDI Labs CBC & Chem 7: 04/05/22 05:22 04/05/22 05:22 Labs: Laboratory Results - last 24 hr 04/08/22 04/08/22 04/08/22 11:02 15:57 19:07 POC Glucose 236 H 302 H 265 H 04/09/22 07:44 POC Glucose 216 H Procedures Date of Service Date of Service: 04/09/22 Progress Note: A&P Assessment and plan (1) Transaminitis: Status: Acute Assessment and Plan: s/p lap pradip looks well c/o incisional pain ok to dc home today dressings removed ok to shower ffup with Dr. Olea Time Spent With Patient Time: Total time spent is greater than 50% in coordination of care (as documented) at patient's floor/unit and/or counseling patient: Quality Stroke Does the patient have a stroke diagnosis?: Yes Reason for No Anti-thrombotic by Day Two: N/A - Med Ordered VTE Prior VTE?: No VTE Risk Level:: Surgical - very high VTE Device Contraindication: N/A - Device Ordered VTE Drug Contraindication: N/A - Med Ordered
[2022-04-09] MEDS: Fluticasone Propionate 100 MCG BLST.W.DEV 2 PUFF INHALE (08:17)
[2022-04-09 08:18] VITALS: PULSE 78; RESP 16; O2SAT 95
[2022-04-09] MEDS: Gabapentin 300 MG CAPSULE 900 MG PO (08:37)
[2022-04-09] MEDS: cloNIDine HCL 0.2 MG TABLET PO (08:37)
[2022-04-09] MEDS: DULoxetine HCl 60 MG CAPSULE.DR PO (08:37)
[2022-04-09] MEDS: levETIRAcetam 1,000 MG TABLET 1000 MG PO (08:38)
[2022-04-09] MEDS: Thiamine HCL 100 MG TABLET PO (08:38)
[2022-04-09] MEDS: lisinopriL 40 MG TABLET PO (08:38)
[2022-04-09] MEDS: Folic Acid 1 MG TABLET PO (08:38)
[2022-04-09] MEDS: DULoxetine HCl 30 MG CAPSULE.DR PO (08:38)
[2022-04-09] MEDS: Magnesium Oxide 400 MG TABLET PO (08:38)
[2022-04-09] MEDS: Doxazosin Mesylate 2 MG TABLET PO (08:38)
[2022-04-09] MEDS: Insulin Lispro 100 UNIT/ML 3 ML VIAL SUBCUT ×2 (08:39→12:27)
[2022-04-09] MEDS: Docusate Sodium 100 MG CAPSULE PO (08:39)
[2022-04-09] MEDS: Insulin Glargine,Hum.rec.anlog 100 UNIT/ML 10 ML VIAL 15 UNIT SUBCUT (08:39)
--- NOTE | 2022-04-09 09:08 | P.PNIM_ITS ---
Subjective Subjective Date of Service: 04/09/22 Interval History: cc: abd interval history:surgical site pain Cardiovascular Cardiovascular: Reports no additional cardiovascular complaints Respiratory Respiratory: Reports no additional respiratory complaints Physical Exam Vital Signs: Vital Signs: Last Vital Signs Temp 97.5 F 04/09/22 07:37 Pulse 78 04/09/22 08:18 Resp 16 04/09/22 08:18 BP 154/90 H 04/09/22 07:37 Pulse Ox 95 04/09/22 07:37 O2 Del Method 04/09/22 07:37 O2 Flow Rate 2.5 04/05/22 17:49 BMI result Body Mass Index 49.3 Const: General: comfortable and no acute distress Resp: Effort & Inspection: normal respiratory effort Cardio: Rate: regular rate GI: Other: soft, incisions clean, not infected Palpation (GI): no guarding Objective Data Active Medications Acetaminophen (Acetaminophen 325 Mg Tablet) 650 mg PO Q6H PRN PRN Reason: Pain, Mild (Pain Scale 1-3) Last Admin: 04/09/22 00:05 Dose: 650 mg Documented By: ARIK Clonidine HCl (Clonidine Hcl 0.2 Mg Tablet) 0.2 mg PO BID [facility]; Protocol Last Admin: 04/09/22 08:37 Dose: 0.2 mg Documented By: MIRYAM Cyclobenzaprine HCl (Cyclobenzaprine Hcl 10 Mg Tablet) 10 mg PO TID PRN PRN Reason: muscle spasm Last Admin: 04/06/22 11:57 Dose: 10 mg Documented By: MARIE Dextrose (Dextrose 50 % 25 Gm/50 Ml Syringe) 25 gm IVPUSH Q15M PRN; Protocol PRN Reason: per Hypoglycemia Standing Ord. Docusate Sodium (Docusate Sodium 100 Mg Capsule) 100 mg PO BID [facility] Last Admin: 04/09/22 08:39 Dose: 100 mg Documented By: MIRYAM Doxazosin Mesylate (Doxazosin Mesylate 2 Mg Tablet) 2 mg PO DAILY [facility]; Protocol Last Admin: 04/09/22 08:38 Dose: 2 mg Documented By: MIRYAM Duloxetine HCl (Duloxetine Hcl 30 Mg Capsule.) 30 mg PO DAILY [facility] Last Admin: 04/09/22 08:38 Dose: 30 mg Documented By: MIRYAM Duloxetine HCl (Duloxetine Hcl 60 Mg Capsule.) 60 mg PO DAILY [facility] Last Admin: 04/09/22 08:37 Dose: 60 mg Documented By: MIRYAM Enoxaparin Sodium (Enoxaparin Sodium 40 Mg/0.4 Ml Syringe) 40 mg SUBCUT Q24H [facility] Last Admin: 04/08/22 17:30 Dose: 40 mg Documented By: ADDI Fluticasone Propionate (Fluticasone Propionate 100 Mcg Blst.W.Dev) 2 puff INHALE RBID [facility] Last Admin: 04/09/22 08:17 Dose: 2 puff Documented By: TAHIRARICGurdeep Folic Acid (Folic Acid 1 Mg Tablet) 1 mg PO DAILY [facility] Last Admin: 04/09/22 08:38 Dose: 1 mg Documented By: MIRYAM Gabapentin (Gabapentin 300 Mg Capsule) 900 mg PO TID [facility] Last Admin: 04/09/22 08:37 Dose: 900 mg Documented By: MIRYAM Glucose (Glucose Gel 15 Gm Gel..Gram.) 15 gm PO Q15M PRN; Protocol PRN Reason: per Hypoglycemia Standing Ord. Insulin Glargine (Insulin Glargine,Hum.Rec.Anlog 100 Unit/Ml 10 Ml Vial) 15 unit SUBCUT DAILY [facility] Last Admin: 04/09/22 08:39 Dose: 15 unit Documented By: MIRYAM Insulin Human Lispro (Insulin Lispro 100 Unit/Ml 3 Ml Vial) 0 unit SUBCUT QIDACHS [facility]; Protocol Last Admin: 04/09/22 08:39 Dose: 4 unit Documented By: MIRYAM Levetiracetam (Levetiracetam 1,000 Mg Tablet) 1,000 mg PO BID [facility] Last Admin: 04/09/22 08:38 Dose: 1,000 mg Documented By: MIRYAM Lisinopril (Lisinopril 40 Mg Tablet) 40 mg PO DAILY [facility]; Protocol Last Admin: 04/09/22 08:38 Dose: 40 mg Documented By: MIRYAM Magnesium Oxide (Magnesium Oxide 400 Mg Tablet) 400 mg PO BID [facility] Last Admin: 04/09/22 08:38 Dose: 400 mg Documented By: MIRYAM Melatonin (Melatonin 3 Mg Tablet) 6 mg PO BEDTIME [facility] Last Admin: 04/08/22 21:37 Dose: 6 mg Documented By: ARIK Omeprazole (Omeprazole 20 Mg Capsule.Dr) 20 mg PO DAILY@0630 [facility] Last Admin: 04/09/22 04:59 Dose: 20 mg Documented By: ARIK Ondansetron HCl (Ondansetron Hcl 4 Mg/2 Ml Vial) 4 mg IVPUSH QID PRN PRN Reason: Nausea Last Admin: 04/03/22 19:22 Dose: 4 mg Documented By: ADELAIDA Oxycodone HCl (Oxycodone Hcl Immed Release 5 Mg Tablet) 10 mg PO Q4H PRN PRN Reason: Pain, Severe (Pain Scale 7-10) Last Admin: 04/09/22 04:58 Dose: 10 mg Documented By: ARIK Oxycodone HCl (Oxycodone Hcl Immed Release 5 Mg Tablet) 5 mg PO Q4H PRN PRN Reason: Pain, Moderate (Pain Scale 4-6 Last Admin: 04/07/22 09:28 Dose: 5 mg Documented By: ADDI Pharmacy Consult (Consult Rx Perform Med Rec) 1 each MISCELLANE ONCE PRN PRN Reason: Consult order Ropinirole HCl (Ropinirole Hcl 0.5 Mg Tablet) 0.5 mg PO BEDTIME [facility] Last Admin: 04/08/22 21:37 Dose: 0.5 mg Documented By: ARIK Sodium Chloride (0.9 % Sodium Chloride Flush 3 Ml Syringe) [facility] Last Admin: 04/09/22 08:39 Dose: 3 ml Documented By: MIRYAM Thiamine HCl (Thiamine Hcl 100 Mg Tablet) 100 mg PO DAILY [facility] Last Admin: 04/09/22 08:38 Dose: 100 mg Documented By: MIRYAM Labs CBC & Chem 7: 04/05/22 05:22 04/05/22 05:22 Labs: Laboratory Results - last 24 hr 04/08/22 04/08/22 04/08/22 11:02 15:57 19:07 POC Glucose 236 H 302 H 265 H 04/09/22 07:44 POC Glucose 216 H Assessment and Plan (1) Cholecystitis, acute with cholelithiasis: Status: Acute (2) Transaminitis: Status: Acute Plan A 46 years old lady with PMH of CVA, diabetes, hypertension, seizure, morbid obesity, depression among others who presents to the hospital with liver right upper quadrant abdominal pain. Acute vs chronic cholecystitis pod 4 lap choly bacturia No symptoms suggestive of UTI completed abx course HTN clonidine, cardura, lisinopril Seizure disorder Continue home Keppra Type 2 diabetes with hyperglycemia can restart home meds morbid obesity outpatient follow up with bariatrics Depression Continue duloxetine and Ativan as needed DVT PPX Lovenox Quality Stroke Does the patient have a stroke diagnosis?: Yes Reason for No Anti-thrombotic by Day Two: N/A - Med Ordered VTE Prior VTE?: No VTE Risk Level:: Surgical - very high VTE Device Contraindication: N/A - Device Ordered VTE Drug Contraindication: N/A - Med Ordered
[2022-04-09 09:43] VITALS: BP 154/90; PULSE 78; O2SAT 95
[2022-04-09 11:01] VITALS: BP 139/91; PULSE 70; RESP 18; TEMP 36.2; O2SAT 97
[2022-04-09 11:28] LABS: Glucose, Whole Blood 230 mg/dL (60-115)
--- NOTE | 2022-04-09 13:02 | MHC.CM.PN ---
PT MEDICALLY CLEARED FOR D/C HOME W/RESUMP OF SERVICES, CM WILL SET UP TRANSPORT VIA CHAIR VAN
--- NOTE | 2022-04-16 12:02 | PM.DS ---
DS: Providers Provider Date of Service: 04/09/22 Date of admission: 04/02/22 13:46 Date of discharge: 04/09/22 Primary care physician: [facility] Admitting clinician: Qamar Sherwood Consults: 04/02/22 13:46 Consult to Hospitalist Routine Consulting Provider: Hospitalist Reason For Exam: diabetes, asthma, acute cholecystitis Attending physician on discharge: Qamar Sherwood DS: Diagnosis Discharge Diagnosis (1) Cholecystitis, acute with cholelithiasis: Status: Acute (2) Transaminitis: Status: Acute DS: Summary Hospital Course Hospital Course: Yesika Farr is a 46 year old female presenting with complaints of epigastric, right upper quadrant and back pain which began Saturday03/30/2022.? The pain began approximately 1 hour after eating beans, rice and broiled chicken.? She denies a previous history of similar pain.? The pain was not associated with fever, chills, nausea, vomiting, diarrhea, or constipation.? She is and has undergone 4 previous Caesarean sections.? She had 1 miscarriage.? Workup in the emergency department revealed normal WBC but markedly elevated liver functions including bilirubins.? Ultrasound of the abdomen revealed a gallbladder with multiple gallstones with evidence of acute cholecystitis.? On examination the patient was noted to be tender in the right upper quadrant and epigastrium with a positive Carpenter sign suggestive of acute cholecystitis. Patient is admitted to the surgical service for further management of the acute cholecystitis. A laparoscopic cholecystectomy was recommended due to the above findings. She was subsequently taken to the OR on 04/03/2022 however preoperative drug screen was found to be positive for cocaine. As result surgery was postponed until 04/05/2022. Operative findings were consistent with acute cholecystitis due to cholelithiasis. She tolerated the laparoscopic cholecystectomy well. She mainly complained of periumbilical pain from the umbilical incision. Over the next several days the pain gradually improved. She was tolerating regular diet without nausea or vomiting. She was able to ambulate over the next several days was subsequently discharged home in stable condition on Saturday04/09/2022. Discharge instructions were to avoid lifting greater than 10 lb for 2 weeks following the surgery. She should also avoid fatty/fried foods for 1 month. She should return to the office in approximately 1 week for wound examination. She is welcome to call sooner for any new concerns including fever, chills, nausea, vomiting, or increased abdominal pain. She expressed understanding and agree with the plan. Time spent discussing smoking cessation with patient: 3 to 10 minutes Status at Discharge Functional status at discharge: independent ambulation Overall status at discharge: patient is not back to baseline Time Spent with Patient Time attestation: Total time spent providing and/or coordinating discharge services: Discharge coordination time: Less than 30 minutes Quality: Safe Use of Opioids Does Pt have an Active Cancer Diagnosis on the Problem List?: No Quality: Stroke Does the patient have a stroke diagnosis?: Yes Reason for No Anti-thrombotic at DC: N/A - Med Ordered Reason for No Anticoagulant at DC: N/A - Med Ordered Reason Not Initiating IV-Tpa: N/A - Med Ordered Reason for No Anti-thrombotic by Day Two: N/A - Med Ordered Reason for No Statin at DC: Not indicated Physical Exam Vital Signs: Vital Signs: Last Vital Signs Temp 97.1 F 04/09/22 11:01 Pulse 70 04/09/22 11:01 Resp 18 04/09/22 11:01 BP 139/91 H 04/09/22 11:01 Pulse Ox 97 04/09/22 11:01 O2 Del Method 04/09/22 11:01 O2 Flow Rate 2.5 04/05/22 17:49 BMI result Body Mass Index 49.3 Const: General: comfortable and no acute distress Resp: Effort & Inspection: normal respiratory effort Cardio: Rate: regular rate GI: Other: soft, incisions clean, not infected Palpation (GI): no guarding DS: Data Data Completed and Pending Completed studies during hospitalization [Text1]: Pending at discharge 04/05/22 15:30 Surgical [PTH] Routine Procedures Resection of Gallbladder, Percutaneous Endoscopic Approach (04/02/22) Discharge Plan Discharge Patient Disposition: Home, Self-Care Discharge Diagnosis: Acute cholecystitis, cholelithiasis Referrals: [facility] [Primary Care Provider] - 1 Week Qamar Sherwood MD [Physician] - 1 Week Discharge Medications: New oxycodone-acetaminophen [Percocet] 5-325 mg tablet 1 tab PO Q4-6H PRN (Reason: pain) Qty: 20 0RF Rx Instructions: Partial Fill upon patient request. Continued multivitamin Tablet 1 tab PO DAILY cyclobenzaprine 10 mg tablet 1 tab PO TID PRN (Reason: muscle spasm) insulin lispro 100 unit/mL insulin pen See Protocol subcut [facility] Protocol: Insulin Correction Scale Less than or equal to 110 ---- Give (units): 0 111 to 150 Give (units): 0 151 to 200 Give (units): 2 201 to 250 Give (units): 4 251 to 300 Give (units): 6 301 to 350 Give (units): 8 Greater than 350 Give (units): 10 Call MD if Blood Glucose > : 350 duloxetine 60 mg capsule,delayed release(DR/EC) 1 cap PO DAILY omeprazole 20 mg capsule,delayed release(DR/EC) 20 mg PO DAILY@0630 (DME) blood-glucose meter [FreeStyle [place] Lite] Kit See Rx Instructions Not Applicable DAILY Qty: 1 Rx Instructions: As directed levetiracetam 1,000 mg tablet 1,000 mg PO BID thiamine HCl (vitamin B1) 100 mg tablet 100 mg PO DAILY doxazosin 1 mg tablet 2 mg PO DAILY (DME) FreeStyle Lite Strips Strip See Rx Instructions Not Applicable TID Qty: 10 Rx Instructions: As directed duloxetine 30 mg capsule,delayed release(DR/EC) 30 mg PO DAILY magnesium oxide 400 mg (241.3 mg magnesium) tablet 400 mg PO BID folic acid 1 mg tablet 1 mg PO DAILY Trulicity 1.5 mg/0.5 mL pen injector 1.5 mg subcut TH@0900 clonidine HCl 0.2 mg tablet 0.2 mg PO BID melatonin 5 mg tablet 5 mg PO BEDTIME ropinirole 0.5 mg tablet 0.5 mg PO BEDTIME Flovent HFA 110 mcg/actuation HFA aerosol inhaler 2 puff PO BID lisinopril 40 mg tablet 40 mg PO DAILY metformin 1,000 mg tablet 1,000 mg PO BIDWM gabapentin 600 mg tablet 1,200 mg PO TID (DME) pen needle, diabetic [Sure Comfort Pen Needle] 31 gauge x 3/16 needle See Rx Instructions .ROUTE BID Qty: 50 Rx Instructions: As directed Discharge Orders: Discharge Order (Routine); Ordered 04/09/22 Ordered By: Marcelo Nair Diet: Diabetic diet Activity on Discharge: No heavy lifting Stand Alone Forms: Patient Portal Discharge page Activity Restrictions/Additional Instructions: ok to shower calll Dr Sherwood's office for ffup in 2 weeks no lifting If the incision area is tender, you may apply an ice pack for short intervals (No more than 20 minutes on, followed by at least 20 minutes off). Do not apply heat. Do not use creams, lotions, or topical antibiotics unless instructed to do so by your surgeon. These can cause infection or allergic reaction. OK to shower No lifting more than 20 lbs No strenuous activities Call the office for follow-up in 2 weeks - Leigh Ann sherwood Call Your Doctor If: -Your temperature exceeds 101.5? F -You experience excessive pain or swelling -You have an unexpected reaction to medication -You have excessive bleeding -You experience continued vomiting/nausea -Your incision begins to separate -Your incision shows signs of infection such as increased redness, swelling, excessive pain, drainage (light blood or clear fluid is normal) or heat Care Plan Goals: Return to normal activity and diet Health Concerns: Abdominal pain in the epigastric and right upper quadrant Plan of Treatment: Laparoscopic cholecystectomy performed on 04/05/2022 Assessment: Acute cholecystitis due to cholelithiasis Discharge Date/Time: 04/09/22 15:07
== END 2022-04-09 15:07 | disposition home or self-care (01) | DRG 263 ==
LOC: HO.ED 08:31 → HO.EDOVER 14:50 → HO.S3 04-04 15:30
PROVIDERS: Anesthesiology; Hospitalist; Internal Medicine; Admitting Provider Surgery; Emergency Provider Emergency Medicine; Visit Provider Surgery
PROC: 0FT44ZZ Resection of Gallbladder, Percutaneous Endoscopic Approach (ICD-10-PCS; CPT 47562; principal; 2022-04-05 13:30)
DX: K80.00 Calculus of gallbladder with acute cholecystitis without obstruction (principal); E11.40 Type 2 diabetes mellitus with diabetic neuropathy, unspecified; G40.409 Other generalized epilepsy and epileptic syndromes, not intractable, without status epilepticus; E66.01 Morbid (severe) obesity due to excess calories; E11.65 Type 2 diabetes mellitus with hyperglycemia; F41.9 Anxiety disorder, unspecified; J45.909 Unspecified asthma, uncomplicated; F32.A Depression, unspecified; G25.81 Restless legs syndrome; N39.0 Urinary tract infection, site not specified; Z20.822 Contact with and (suspected) exposure to COVID-19; Z68.42 Body mass index [BMI] 45.0-49.9, adult; Z86.73 Personal history of transient ischemic attack (TIA), and cerebral infarction without residual deficits; Z87.891 Personal history of nicotine dependence; Z79.4 Long term (current) use of insulin; Z79.51 Long term (current) use of inhaled steroids; Z79.84 Long term (current) use of oral hypoglycemic drugs; Z79.899 Other long term (current) drug therapy
CPT/HCPCS: 36415; 74176; 76705; 78226; 80048; 80053; 80076; 80307; 81001; 81025; 82248; 82947; 83690; 85025; 85027; 87040; 87086; 87147; 87635; 88304; 94640; 96361; 96374; 96375; 96376; 97162; 99218; 99285; A9537; J0131; J0461; J1170; J1650; J1885; J2250; J2270; J2405; J2543; J2795; J3010

== ENCOUNTER 2022-05-25 18:32 | Emergency (ER) | payer MEDICAID, SELFPAY ==
--- NOTE | ~2022-05-25 | XR_ITS ---
EXAMINATION: XR CHEST CLINICAL INFORMATION: Cough COMPARISON: Chest x-ray 09/27/2021 TECHNIQUE: Frontal view of the chest was obtained. FINDINGS: The lungs are clear. No airspace consolidation, pleural effusion, or pneumothorax. The cardiomediastinal silhouette is within normal limits. No acute osseous injury. XR/XR chest 1V IMPRESSION: No acute pulmonary disease.
--- NOTE | ~2022-05-25 | CT_ITS ---
EXAMINATION: CT HEAD WITHOUT CONTRAST CLINICAL INFORMATION: Right lower extremity tingling. History of diabetic neuropathy and prior CVA. COMPARISON: Head CT 11/28/2017 TECHNIQUE: Imaging was performed from the skull base to vertex without intravenous administration of contrast. This CT examination was performed using dose optimization techniques as appropriate, variously including the following: *Automated exposure control *Adjustment of mA and/or kV according to patient size (this includes techniques or standardized protocols for targeted exams where dose is matched to indication/reason for exam; i.e. extremities or head) *Use of iterative reconstruction technique Total exam dose length product: 1138 mGy-cm FINDINGS: No intra or extra-axial fluid collection, hemorrhage, or mass. No ventriculomegaly. No midline shift or herniation. Basal cisterns are patent. There is an area of hypoattenuation and encephalomalacia in the high medial left posterior frontal and parietal lobe consistent with prior infarct with mild ex vacuo dilation of the underlying body of the left lateral ventricle. Vicente-white matter differentiation is otherwise maintained. No territorial encephalomalacia. No significant volume loss. Small focus of hypoattenuation in the right parietal subcortical white matter, nonspecific. No calvarial fracture or soft tissue abnormality. The mastoid air cells and visualized portions of the paranasal sinuses are well aerated. CT/CT head/brain wo IV con IMPRESSION: 1. No intracranial hemorrhage or acute edematous territorial infarct. 2. Encephalomalacia in the high medial left posterior frontal and parietal lobe consistent with prior infarct.
[2022-05-25 18:43] VITALS: BP 149/82; BP 175/114; PULSE 86; PULSE 90; RESP 20; TEMP 36.7; O2SAT 100; BMI 42.4
--- NOTE | 2022-05-25 18:47 | PC.NURSE ---
pt from home with visitng nurse. per EMS pt hx of med seeking,. pt DOES have a hx of a stroke in 2019 - with R sided deficits, she walks with a walker. pt currently complainging of R side numbness and tingling started approx one hr ago. pt upon EMS arriival c/o numbness and tingling now also in her left leg. pt with BP 175/114 (MD Flores made aware).
[2022-05-25 18:49] VITALS: BP 162/88; PULSE 91; O2SAT 100
--- NOTE | 2022-05-25 19:12 | ED.NEUROSD ---
HPI - Neuro Symptoms/Deficit General Chief Complaint: Neuro Symptoms/Deficit Stated Complaint: Rt thigh tingling. Time Seen by Provider: 05/25/22 18:51 Source: patient Mode of arrival: EMS History of Present Illness HPI Narrative: 46-year-old female who presents via EMS for complaints of onset of tingling in the right lower extremity that she has been unable to move or have sensation in since 2019 when she experienced the CVA with right-sided residual deficits and recently regained use of the right upper extremity. Patient also reports history of hypertension, seizure. However, she denies any fever, chills, nausea, vomiting, urinary pain/burning/frequency. Related Data Home Medications Medication Instructions Recorded Confirmed blood sugar diagnostic (FreeStyle #10 ea 11/01/21 04/17/22 Lite Strips) blood-glucose meter (FreeStyle #1 ea 11/01/21 04/17/22 Cypress Lite kit) clonidine HCl 0.2 mg tablet 0.2 mg PO BID 11/01/21 04/17/22 doxazosin 1 mg tablet 2 mg PO DAILY 11/01/21 04/17/22 dulaglutide 1.5 mg/0.5 mL 1.5 mg subcut TH@0900 11/01/21 04/17/22 [facility] duloxetine 30 mg capsule,delayed 30 mg PO DAILY 11/01/21 04/17/22 release fluticasone propionate 110 2 puff PO BID 11/01/21 04/17/22 mcg/actuation HFA aerosol inhaler (Flovent HFA) folic acid 1 mg tablet 1 mg PO DAILY 11/01/21 04/17/22 gabapentin 600 mg tablet 1,200 mg PO TID 11/01/21 04/17/22 levetiracetam 1,000 mg tablet 1,000 mg PO BID 11/01/21 04/17/22 lisinopril 40 mg tablet 40 mg PO DAILY 11/01/21 04/17/22 magnesium oxide 400 mg (241.3 mg 400 mg PO BID 11/01/21 04/17/22 magnesium) tablet melatonin 5 mg tablet 5 mg PO BEDTIME 11/01/21 04/17/22 metformin 1,000 mg tablet 1,000 mg PO BIDWM 11/01/21 04/17/22 omeprazole 20 mg capsule,delayed 20 mg PO DAILY@0630 11/01/21 04/17/22 release pen needle, diabetic 31 gauge x #50 ea 11/01/21 04/17/22 3/16 (Sure Comfort Pen Needle) ropinirole 0.5 mg tablet 0.5 mg PO BEDTIME 11/01/21 04/17/22 thiamine HCl (vitamin B1) 100 mg 100 mg PO DAILY 11/01/21 04/17/22 tablet cyclobenzaprine 10 mg tablet 1 tab PO TID PRN muscle spasm 04/02/22 04/17/22 duloxetine 60 mg capsule,delayed 1 cap PO DAILY 04/02/22 04/17/22 release insulin lispro 100 unit/mL See Protocol subcut TIDAC 04/02/22 04/17/22 subcutaneous pen multivitamin 1 tab PO DAILY 04/02/22 04/17/22 Previous Rx's Medication Instructions Recorded oxycodone-acetaminophen 5 mg-325 1 tab PO Q4-6H PRN pain #20 tabs 04/09/22 mg tablet (Percocet) Allergies Allergy/AdvReac Type Severity Reaction Status Date / Time tomato [TOMATO] Allergy Unknown RASH Verified 04/17/22 09:07 Review of Systems Review of Systems: Pertinent positives and negatives as stated in HPI 10 point review of systems is otherwise negative. [facility] Past Medical History Source: nursing notes reviewed Medical History Anxiety Asthma Cholecystitis, acute with cholelithiasis Depression GERD (gastroesophageal reflux disease) Hx of completed stroke Hypertension Insomnia Insulin dependent type 2 diabetes mellitus Morbid obesity Neuropathy Restless leg syndrome Seizure Stroke Transaminitis UTI (urinary tract infection) Surgical History History of History of laparoscopic cholecystectomy (04/05/22) Family History Family History Mother Diabetes Father Diabetes Alcoholism Social History Social History Household Members: None Housing: Apartment Do you presently have visiting nurse or other home services: Yes (property administrator, vna) Alcohol intake: never Patient Tobacco Use Status: Former Tobacco user Quit Date: 3 yrs ago Smoked in Last 30 Days: No Substance Use Type: Crack/Cocaine Last Used Substance: Days (ago) Advance Directives: No Advance Directives Information Provided: No service: No Current occupational status: unemployed Physical Exam Vital Signs: Vital Signs: Last Vital Signs Temp 98.1 F 05/25/22 18:43 Pulse 91 05/25/22 18:49 Resp 20 05/25/22 18:43 BP 162/88 H 05/25/22 18:49 Pulse Ox 100 05/25/22 18:49 O2 Del Method 05/25/22 18:49 BMI result Body Mass Index 42.4 VITAL SIGNS: Reviewed. GENERAL: Elevated BMI, Well developed, well nourished, in no acute distress. HEAD: Normocephalic/atraumatic EYES: PERRLA, EOMI EARS: Ext canals without abnormality, TMs non-bulging and non-erythematous NOSE: Nares patent bilateral, vesicular lesions noted to the tip of the nose OROPHARYNX: no oral lesions noted, posterior pharynx clear LUNGS: Normal breath sounds. No adventitious sounds or accessory muscle use. SpO2<100> CARDIOVASCULAR: Regular rate and rhythm without noted murmurs ABDOMEN: Soft, non-tender, non-distended with bowel sounds. MUSCULOSKELETAL: No tenderness, deformities, or effusions noted on gross inspection. EXTREMITIES: No cyanosis, clubbing or edema. SKIN: Inspection of the skin reveals no rashes NEUROLOGIC: Alert and oriented x 4. Strength and sensation to light touch were grossly intact x 3, patient cannot move right lower extremity and reports current tingling although previously no sensation.. Course Course Course Narrative: 46-year-old female with history and clinical presentation consistent with regaining sensation to right lower extremity that she states had not been there previously. On evaluation, patient reports that she can now feel me touching her right lower extremity. However, on review of prior charting from 03/2022 there is no neural deficits documented. In addition, on a documented no from November/2021 there is mention that patient has significant diabetic neuropathy in the right lower extremity for which she is currently receiving 1200 mg, t.i.d. a note from the hospitalist from 03/2022 does document right lower extremity weakness which would be consistent with patient's current story. I will still proceed with a CT of the head although I doubt acute neurologic deficit. Review of all investigations otherwise negative for acute findings in although she is noted to have a leukocytosis she is afebrile with no acute findings on chest x-ray or urinalysis and no abdominal complaints. Suspect that this may be a reactive/stress response. Patient is tolerating oral intake and given that there are no acute findings patient will be discharged home in stable condition. MDM - Neuro Symptoms/Deficit Lab Data Result diagrams: 05/25/22 20:13 05/25/22 20:13 Labs: Lab Results 05/25/22 05/25/22 05/25/22 Range/Units 20:13 20:13 20:13 WBC 14.4 H (4.8-10.8) X10*3/uL RBC 5.88 H D (4.20-5.50) X10*6/uL Hgb 15.3 D (12.0-16.0) g/dl Hct 46.0 D (37.0-47.0) % MCV 78.2 L (80.0-98.0) fL MCH 26.0 L (27.0-33.0) pg MCHC 33.3 (31.0-35.0) g/dl RDW 16.3 H (11.0-16.0) % Plt Count 321 D (160-400) X10*3/uL MPV 11.4 (9.4-12.3) fL Immature Gran % (Auto) 0.3 (0.0-0.4) % Neut % (Auto) 63.5 (45-73) % Lymph % (Auto) 26.6 (20-40) % Branch % (Auto) 6.8 (2-11) % Eos % (Auto) 2.0 (0-4) % Baso % (Auto) 0.8 (0-2) % Lymph # (Auto) 3.8 (1.2-4.9) X10*3/uL Branch # (Auto) 1.0 (0.1-1.2) X10*3/uL Eos # (Auto) 0.3 (0.0-0.4) X10*3/uL Baso # (Auto) 0.1 (0.0-0.2) X10*3/uL Abs Immat Gran (auto) 0.05 H (0.00-0.03) X10*3/uL Absolute Neuts (auto) 9.1 H (2.0-8.3) x10*3/uL Absolute Nucleated RBC 0.000 (0.0-0.012) X10*3/uL Nucleated RBC % (auto) 0.0 (0.0-0.2) /100WBC PT 13.1 (10.0-13.1) SEC INR 1.1 (0.9-1.1) Sodium 138 (135-145) mmol/L Potassium 2.9 L D (3.3-5.1) mmol/L Chloride 98 (96-108) mmol/L Carbon Dioxide 22 (22-29) mmol/L Anion Gap 21 H (12-20) BUN 10 (9-16) mg/dL Creatinine 0.77 (0.5-1.4) mg/dL Estim Creat Clear Calc 94.2 Estimated GFR > 60 Random Glucose 196 H (60-115) mg/dL Calcium 9.3 D (8.4-10.2) mg/dL Magnesium 1.6 (1.6-2.6) mg/dL Total Bilirubin 0.9 (0.0-1.0) mg/dL AST 58 H (5-31) U/L ALT 51 H (0-31) U/L Alkaline Phosphatase 100 D (39-117) U/L Total Protein 8.0 D (6.5-8.0) g/dL Albumin 4.0 D (3.5-5.0) g/dL Urine Color Urine Appearance Urine pH (5.0-9.0) Ur Specific [place] (1.005-1.025) Urine Protein (Neg-Trace) mg/dL Urine Glucose (UA) (Negative) mg/dL Urine Ketones (Negative) mg/dL Urine Blood (Negative) Urine Nitrite (Negative) Ur Leukocyte Esterase (Negative) Urine RBC (0-2) /HPF Urine WBC (0-5) /HPF Ur Squamous Epith Cells (0-2) /HPF Urine Bacteria (None Seen) Hyaline Casts (0-2) /LPF Influenza Type A (PCR) (Negative) Influenza Type B (PCR) (Negative) RSV RNA Qual (PCR) (Negative) SARS-CoV-2 RNA (RT-PCR) (Negative) 05/25/22 05/25/22 Range/Units 20:13 21:58 WBC (4.8-10.8) X10*3/uL RBC (4.20-5.50) X10*6/uL Hgb (12.0-16.0) g/dl Hct (37.0-47.0) % MCV (80.0-98.0) fL MCH (27.0-33.0) pg MCHC (31.0-35.0) g/dl RDW (11.0-16.0) % Plt Count (160-400) X10*3/uL MPV (9.4-12.3) fL Immature Gran % (Auto) (0.0-0.4) % Neut % (Auto) (45-73) % Lymph % (Auto) (20-40) % Branch % (Auto) (2-11) % Eos % (Auto) (0-4) % Baso % (Auto) (0-2) % Lymph # (Auto) (1.2-4.9) X10*3/uL Branch # (Auto) (0.1-1.2) X10*3/uL Eos # (Auto) (0.0-0.4) X10*3/uL Baso # (Auto) (0.0-0.2) X10*3/uL Abs Immat Gran (auto) (0.00-0.03) X10*3/uL Absolute Neuts (auto) (2.0-8.3) x10*3/uL Absolute Nucleated RBC (0.0-0.012) X10*3/uL Nucleated RBC % (auto) (0.0-0.2) /100WBC PT (10.0-13.1) SEC INR (0.9-1.1) Sodium (135-145) mmol/L Potassium (3.3-5.1) mmol/L Chloride (96-108) mmol/L Carbon Dioxide (22-29) mmol/L Anion Gap (12-20) BUN (9-16) mg/dL Creatinine (0.5-1.4) mg/dL Estim Creat Clear Calc Estimated GFR Random Glucose (60-115) mg/dL Calcium (8.4-10.2) mg/dL Magnesium (1.6-2.6) mg/dL Total Bilirubin (0.0-1.0) mg/dL AST (5-31) U/L ALT (0-31) U/L Alkaline Phosphatase (39-117) U/L Total Protein (6.5-8.0) g/dL Albumin (3.5-5.0) g/dL Urine Color [place] A Urine Appearance Cloudy Urine pH 5.5 (5.0-9.0) Ur Specific [place] >= 1.030 H (1.005-1.025) Urine Protein 300 (3+) H (Neg-Trace) mg/dL Urine Glucose (UA) >=1000 H (Negative) mg/dL Urine Ketones Trace (Negative) mg/dL Urine Blood Large (3+) H (Negative) Urine Nitrite Negative (Negative) Ur Leukocyte Esterase Small (1+) H (Negative) Urine RBC >20 H (0-2) /HPF Urine WBC 21-50 H (0-5) /HPF Ur Squamous Epith Cells 6-10 (0-2) /HPF Urine Bacteria 3+ (None Seen) Hyaline Casts 0-2 (0-2) /LPF Influenza Type A (PCR) NEGATIVE (Negative) Influenza Type B (PCR) NEGATIVE (Negative) RSV RNA Qual (PCR) NEGATIVE (Negative) SARS-CoV-2 RNA (RT-PCR) NEGATIVE (Negative) ECG Data Attestation: I personally reviewed and interpreted this ECG as follows: Prior ECG tracings: available for review Interpretation: Sinus rhythm, HR-75, no STEMI, CT/QRS are within normal limits, [id number] Discharge Plan Discharge Clinical Impression: Diabetic neuropathy Patient Disposition: Home, Self-Care Instructions: Diabetic Peripheral Neuropathy (ED) Additional Instructions: 1. Resume all home medications as prescribed. 2. Call the office of your primary care provider in the morning to set up an appointment for re-evaluation. Return to the ER for worsening symptoms. Prescriptions: No Action multivitamin Tablet 1 tab PO DAILY cyclobenzaprine 10 mg tablet 1 tab PO TID PRN (Reason: muscle spasm) insulin lispro 100 unit/mL insulin pen See Protocol subcut TIDAC Protocol: Insulin Correction Scale Less than or equal to 110 ---- Give (units): 0 111 to 150 Give (units): 0 151 to 200 Give (units): 2 201 to 250 Give (units): 4 251 to 300 Give (units): 6 301 to 350 Give (units): 8 Greater than 350 Give (units): 10 Call MD if Blood Glucose > : 350 duloxetine 60 mg capsule,delayed release(DR/EC) 1 cap PO DAILY oxycodone-acetaminophen [Percocet] 5-325 mg tablet 1 tab PO Q4-6H PRN (Reason: pain) Qty: 20 0RF Rx Instructions: Partial Fill upon patient request. omeprazole 20 mg capsule,delayed release(DR/EC) 20 mg PO DAILY@0630 (DME) blood-glucose meter [FreeStyle Cypress Lite] Kit See Rx Instructions Not Applicable DAILY Qty: 1 Rx Instructions: As directed levetiracetam 1,000 mg tablet 1,000 mg PO BID thiamine HCl (vitamin B1) 100 mg tablet 100 mg PO DAILY doxazosin 1 mg tablet 2 mg PO DAILY (DME) FreeStyle Lite Strips Strip See Rx Instructions Not Applicable TID Qty: 10 Rx Instructions: As directed duloxetine 30 mg capsule,delayed release(DR/EC) 30 mg PO DAILY magnesium oxide 400 mg (241.3 mg magnesium) tablet 400 mg PO BID folic acid 1 mg tablet 1 mg PO DAILY Trulicity 1.5 mg/0.5 mL pen injector 1.5 mg subcut TH@0900 clonidine HCl 0.2 mg tablet 0.2 mg PO BID melatonin 5 mg tablet 5 mg PO BEDTIME ropinirole 0.5 mg tablet 0.5 mg PO BEDTIME Flovent HFA 110 mcg/actuation HFA aerosol inhaler 2 puff PO BID lisinopril 40 mg tablet 40 mg PO DAILY metformin 1,000 mg tablet 1,000 mg PO BIDWM gabapentin 600 mg tablet 1,200 mg PO TID (DME) pen needle, diabetic [Sure Comfort Pen Needle] 31 gauge x 3/16 needle See Rx Instructions .ROUTE BID Qty: 50 Rx Instructions: As directed
--- NOTE | 2022-05-25 19:15 | ECG_ITS ---
Test Reason : HTN Blood Pressure : / mmHG Vent. Rate : 075 BPM Atrial Rate : 082 BPM P-R Int : 158 ms QRS Dur : 088 ms QT Int : 438 ms P-R-T Axes : 062 019 029 degrees QTc Int : 489 ms Sinus rhythm with marked sinus arrhythmia Prolonged QT Abnormal ECG When compared with ECG of 27-NOV-2021 10:37, Premature ventricular complexes are no longer Present Nonspecific T wave abnormality has replaced inverted T waves in Inferior leads QT has lengthened Referred By: Micki Flores Electronically Signed By:DEEP ARSHAD MD
[2022-05-25 20:17] LABS: MANUAL DIFF FLAG NO
[2022-05-25 20:19] LABS: Basophils Absolute Auto 0.1 X10*3/uL (0.0-0.2); Basophils Percent Auto 0.8 % (0-2); Eosinophils Absolute Auto 0.3 X10*3/uL (0.0-0.4); Hemoglobin 15.3 g/dl (12.0-16.0); Imm Gran Abs Auto 0.05 X10*3/uL (0.00-0.03); Imm Gran Pct Auto 0.3 % (0.0-0.4); Lymphocytes Absolute Auto 3.8 X10*3/uL (1.2-4.9); Lymphocytes Percent Auto 26.6 % (20-40); Mean Corpuscular HGB Conc 33.3 g/dl (31.0-35.0); Mean Corpuscular Volume 78.2 fL (80.0-98.0); Mean Platelet Volume 11.4 fL (9.4-12.3); Monocytes Percent Auto 6.8 % (2-11); Neutrophils Absolute Auto 9.1 x10*3/uL (2.0-8.3); Neutrophils Percent Auto 63.5 % (45-73); Platelet Count 321 X10*3/uL (160-400); Red Blood Count 5.88 X10*6/uL (4.20-5.50); Red Cell Distribution Width 16.3 % (11.0-16.0); White Blood Count 14.4 X10*3/uL (4.8-10.8)
[2022-05-25 20:26] LABS: INTERNATIONAL NORM RATIO 1.1 (0.9-1.1); Prothrombin Time 13.1 SEC (10.0-13.1)
[2022-05-25 20:34] LABS: Alanine Aminotransferase 51 U/L (0-31); Alkaline Phosphatase 100 U/L (39-117); Anion Gap 21 (12-20); Aspartate Amino Transferase 58 U/L (5-31); Bilirubin Total 0.9 mg/dL (0.0-1.0); Blood Urea Nitrogen 10 mg/dL (9-16); Calcium 9.3 mg/dL (8.4-10.2); Carbon Dioxide 22 mmol/L (22-29); Chloride 98 mmol/L (96-108); Creatinine Clr Calc Pharmacy 94.2; Estimated Glomerular Filt Rate > 60; Glucose Random 196 mg/dL (60-115); Potassium 2.9 mmol/L (3.3-5.1); Sodium 138 mmol/L (135-145)
[2022-05-25 21:02] LABS: Influenza A PCR NEGATIVE (Negative); Influenza B PCR NEGATIVE (Negative); Resp Syncy Virus RNA Qual PCR NEGATIVE (Negative); SARS COV2 PCR INHOUSE NEGATIVE (Negative)
[2022-05-25 21:11] LABS: Magnesium 1.6 mg/dL (1.6-2.6)
[2022-05-25] MEDS: Magnesium Sulfate/D5W 1 GM/100 ML PIGGYBACK IV (21:52)
[2022-05-25 22:16] LABS: Appearance Urine Cloudy; Color Urine Orange; Glucose Urine UA >=1000 mg/dL (Negative); Leukocyte Esterase Urine Small (1+) (Negative); Nitrite Urine Negative (Negative); PH 5.5 (5.0-9.0); Specific Gravity - Urine >= 1.030 (1.005-1.025); UMIC TRIGGER UACC YES; Urine Blood Large (3+) (Negative); Urine Ketones Trace mg/dL (Negative); Urine Protein 300 (3+) mg/dL (Neg-Trace)
[2022-05-25 22:18] LABS: Bacteria Urine 3+ (None Seen); Hyaline Casts Urine 0-2 /LPF (0-2); RBC Urine >20 /HPF (0-2); UACC Culture Trigger YES; WBC Urine 21-50 /HPF (0-5)
[2022-05-26] MEDS: Potassium Chloride ER 20 MEQ TAB.ER.PRT 60 MEQ PO (00:14)
[2022-05-26 00:17] VITALS: BP 129/84; PULSE 89; RESP 18; TEMP 37.1; O2SAT 95
== END 2022-05-26 00:53 | disposition home or self-care (01) ==
PROVIDERS: Emergency Provider Student in an Organized Health Care Education/Training Program
DX: M79.661 Pain in right lower leg (principal); E11.40 Type 2 diabetes mellitus with diabetic neuropathy, unspecified; F14.10 Cocaine abuse, uncomplicated; R05.9 Cough, unspecified; I10 Essential (primary) hypertension; Z20.822 Contact with and (suspected) exposure to COVID-19; Z79.4 Long term (current) use of insulin; Z79.899 Other long term (current) drug therapy; Z86.73 Personal history of transient ischemic attack (TIA), and cerebral infarction without residual deficits
CPT/HCPCS: 0241U; 36415; 70450; 71045; 80053; 81001; 83735; 85025; 85610; 87086; 87147; 93005; 96374; 99284; J3475

== ENCOUNTER 2023-05-21 15:57 | Emergency (ER) | payer MEDICAID, SELFPAY ==
--- NOTE | ~2023-05-21 | XR_ITS ---
EXAMINATION: XR WRIST AND HAND, LEFT CLINICAL INFORMATION: Glass fell on hand COMPARISON: None available. TECHNIQUE: PA, lateral, and oblique views of the left hand and wrist and an additional navicular view was also acquired. FINDINGS: Frontal, lateral and oblique radiographs of the left hand and wrist show no fracture, dislocation or radiopaque foreign body. XR/XR hand wrist LT IMPRESSION: No fracture or radiopaque foreign body.
[2023-05-21 16:03] VITALS: BP 132/81; PULSE 68; RESP 17; TEMP 36.2; O2SAT 97; BMI 33.9
--- NOTE | 2023-05-21 16:03 | ED_ITS ---
HPI - General Adult General Chief complaint: General Medical Stated complaint: L ARM PAIN R LEG PAIN Time Seen by Provider: 05/21/23 21:59 Source: patient Mode of arrival: wheelchair History of Present Illness HPI narrative: 47-year-old female who is left handed and presents with left wrist pain but denies any associated fever/chills/traumatic event and also reports that her right lower extremity in which she has minimal movement secondary to prior CVA in 2019 his had some pain in tingling. Otherwise she denies any GI or symptoms. On review of the triage note it appears that patient endorsed that the glass piece of the microwave fell on her left wrist. Patient reports she did not take her insulin and on my interview it has just finished eating Oreo cookies. Related Data Home Medications Medication Instructions Recorded Confirmed blood sugar diagnostic (FreeStyle #10 ea 11/01/21 04/17/22 Lite Strips) blood-glucose meter (FreeStyle #1 ea 11/01/21 04/17/22 Conway Lite kit) clonidine HCl 0.2 mg tablet 0.2 mg PO BID 11/01/21 04/17/22 doxazosin 1 mg tablet 2 mg PO DAILY 11/01/21 04/17/22 dulaglutide 1.5 mg/0.5 mL 1.5 mg subcut TH@0900 11/01/21 04/17/22 [facility] duloxetine 30 mg capsule,delayed 30 mg PO DAILY 11/01/21 04/17/22 release fluticasone propionate 110 2 puff PO BID 11/01/21 04/17/22 mcg/actuation HFA aerosol inhaler (Flovent HFA) folic acid 1 mg tablet 1 mg PO DAILY 11/01/21 04/17/22 gabapentin 600 mg tablet 1,200 mg PO TID 11/01/21 04/17/22 levetiracetam 1,000 mg tablet 1,000 mg PO BID 11/01/21 04/17/22 lisinopril 40 mg tablet 40 mg PO DAILY 11/01/21 04/17/22 magnesium oxide 400 mg (241.3 mg 400 mg PO BID 11/01/21 04/17/22 magnesium) tablet melatonin 5 mg tablet 5 mg PO BEDTIME 11/01/21 04/17/22 metformin 1,000 mg tablet 1,000 mg PO BIDWM 11/01/21 04/17/22 omeprazole 20 mg capsule,delayed 20 mg PO DAILY@0630 11/01/21 04/17/22 release pen needle, diabetic 31 gauge x #50 ea 11/01/21 04/17/22 3/16 (Sure Comfort Pen Needle) ropinirole 0.5 mg tablet 0.5 mg PO BEDTIME 11/01/21 04/17/22 thiamine HCl (vitamin B1) 100 mg 100 mg PO DAILY 11/01/21 04/17/22 tablet cyclobenzaprine 10 mg tablet 1 tab PO TID PRN muscle spasm 04/02/22 04/17/22 duloxetine 60 mg capsule,delayed 1 cap PO DAILY 04/02/22 04/17/22 release insulin lispro 100 unit/mL See Protocol subcut TIDAC 04/02/22 04/17/22 subcutaneous pen multivitamin 1 tab PO DAILY 04/02/22 04/17/22 Previous Rx's Medication Instructions Recorded oxycodone-acetaminophen 5 mg-325 1 tab PO Q4-6H PRN pain #20 tabs 04/09/22 mg tablet (Percocet) Allergies Allergy/AdvReac Type Severity Reaction Status Date / Time tomato [TOMATO] Allergy Unknown RASH Verified 04/17/22 09:07 Review of Systems 2 Review of Systems: Pertinent positives and negatives as stated in HPI [facility] Past Medical History Source: nursing notes reviewed Medical History Transaminitis Cholecystitis, acute with cholelithiasis UTI (urinary tract infection) Asthma Restless leg syndrome Stroke GERD (gastroesophageal reflux disease) Anxiety Depression Insomnia Neuropathy Seizure Hypertension Insulin dependent type 2 diabetes mellitus Morbid obesity Hx of completed stroke Surgical History History of laparoscopic cholecystectomy (04/05/22) History of Family History Family History Mother Diabetes Father Diabetes Alcoholism Social History Social History Household Members: None Housing: Apartment Do you presently have visiting nurse or other home services: Yes (dairy tester, vna) Alcohol intake: never Patient Tobacco Use Status: Former Tobacco user Quit Date: 3 yrs ago Substance Use Type: Crack/Cocaine Advance Directives: No Advance Directives Information Provided: No service: No Current occupational status: unemployed Physical Exam ED Vital Signs: Vital Signs - 24 hr 05/21/23 16:03 05/21/23 22:05 Temperature 97.1 F 97.8 F Pulse Rate 68 69 Respiratory Rate 17 14 Blood Pressure 132/81 142/84 H Pulse Oximetry 97 99 Oxygen Delivery Method Room Air Room Air BMI result Body Mass Index 33.9 VITAL SIGNS: Reviewed. GENERAL: Elevated BMI, Well developed, well nourished, in no acute distress. HEAD: Normocephalic/atraumatic EYES: PERRLA, EOMI EARS: Ext canals without abnormality NOSE: Nares patent bilateral OROPHARYNX: no oral lesions noted, posterior pharynx clear NECK: Supple, no adenopathy LUNGS: Normal breath sounds. No adventitious sounds or accessory muscle use. SpO2<99> CARDIOVASCULAR: Regular rate and rhythm without noted murmurs ABDOMEN: Soft, non-tender, non-distended with bowel sounds. PELVIS: Stable, nontender, no erythema or induration noted over the right hip MUSCULOSKELETAL: No tenderness, deformities, or effusions noted on gross inspection. EXTREMITIES: No cyanosis, clubbing or edema. LUE: There is full range of motion noted at the shoulder/elbow, there is no erythema or induration noted over the left forearm or the wrist also no significant swelling, good palpable pulses, capillary refill less than 2 seconds, good hand c s s representative. SKIN: Inspection of the skin reveals no rashes NEUROLOGIC: Alert and oriented x 4. Strength and sensation to light touch were grossly intact x 4, but significantly reduced in the right lower extremity at baseline. 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 Also reports acute on chronic R side of body pain > right thigh. Admits to chronic pain, however worse since yesterday. denies weakness, fall, fever. Patient is always in wheelchair POC 385 by EMS > took her Metformin today but not her insulin Labs, XRs ordered Full HPI, ROS and PE to be performed by primary ED provider. Medical Decision Making Medical Decision Making [facility] Narrative: 47-year-old female with history and clinical presentation consistent with chronic pain of the right hip is there are no acute findings on clinical exam or history to suggest infectious etiology or traumatic etiology that would lead to investigation for fracture. Patient has no focal findings other than those endorsed at baseline. The left wrist does not have any clinical exam findings to suggest infection or fracture. I reviewed all investigations and hematologic indices are negative for leukocytosis or left shift, there is no anemia or thrombocytopenia. VBG does not demonstrate a pH less than 7.3. Chemistry indices do not demonstrate an SKYLA. There are no electrolyte or liver enzyme abnormalities and although patient is noted to have a hyperglycemia her beta hydroxybutyrate is 0.09 and bicarb does not demonstrate metabolic acidosis. Radiography of left wrist is negative for any evidence of fracture or dislocation. My interpretation is that patient may have soft tissue injury. And suspect that the right hip pain is likely chronic in etiology as there are no acute findings to suggest infectious or bony abnormalities. She is otherwise discharged home with instructions to follow-up with her primary care doctor. Differential Diagnosis Differential Diagnoses: The differential diagnosis associated with the presentation includes Please see the discussion above Admission/Observation Consideration of admission/observation: Escalation of care including admission/observation considered Please see the discussion above Lab Data [facility] Lab Attestation statement: I reviewed the patient's lab results. Please see the discussion above 05/21/23 16:54 05/21/23 16:54 Labs: Lab Results 05/21/23 05/21/23 Range/Units 16:54 16:58 WBC 9.1 (4.8-10.8) X10*3/uL RBC 5.30 (4.20-5.50) X10*6/uL Hgb 14.2 (12.0-16.0) g/dl Hct 42.5 (37.0-47.0) % MCV 80.2 (80.0-98.0) fL MCH 26.8 L (27.0-33.0) pg MCHC 33.4 (31.0-35.0) g/dl RDW 14.1 (11.0-16.0) % Plt Count 271 (160-400) X10*3/uL MPV 11.1 (9.4-12.3) fL Immature Gran % (Auto) 0.4 (0.0-0.4) % Neut % (Auto) 59.0 (45-73) % Lymph % (Auto) 29.5 (20-40) % Toole % (Auto) 7.5 (2-11) % Eos % (Auto) 2.6 (0-4) % Baso % (Auto) 1.0 (0-2) % Lymph # (Auto) 2.7 (1.2-4.9) X10*3/uL Toole # (Auto) 0.7 (0.1-1.2) X10*3/uL Eos # (Auto) 0.2 (0.0-0.4) X10*3/uL Baso # (Auto) 0.1 (0.0-0.2) X10*3/uL Abs Immat Gran (auto) 0.04 H (0.00-0.03) X10*3/uL Absolute Neuts (auto) 5.4 (2.0-8.3) x10*3/uL Absolute Nucleated RBC 0.000 (0.0-0.012) X10*3/uL Nucleated RBC % (auto) 0.0 (0.0-0.2) /100WBC VBG pH 7.37 (7.32-7.43) VBG pCO2 52 mmHg VBG pO2 34 mmHg VBG HCO3 30 H (22-26) mmol/L VBG O2 Saturation 53.0 % VBG Base Excess 4.4 mmol/L Sodium 137 (135-145) mmol/L Potassium 3.7 D (3.3-5.1) mmol/L Chloride 103 (96-108) mmol/L Carbon Dioxide 26 (22-29) mmol/L Anion Gap 12 (12-20) BUN 8 L (9-16) mg/dL Creatinine 0.77 (0.5-1.4) mg/dL Estim Creat Clear Calc 82.1 Estimated GFR > 60 Random Glucose 399 H* (60-115) mg/dL Calcium 8.7 D (8.4-10.2) mg/dL Magnesium 1.6 (1.6-2.6) mg/dL Total Bilirubin 0.4 (0.0-1.0) mg/dL Direct Bilirubin 0.2 (0.0-0.5) mg/dL AST 32 H (5-31) U/L ALT 30 (0-31) U/L Alkaline Phosphatase 92 (39-117) U/L Total Protein 7.1 (6.5-8.0) g/dL Albumin 3.5 (3.5-5.0) g/dL Beta-Hydroxybutyrate 0.09 (0.02-0.27) mmol/L Independent Interpretation I performed an independent interpretation of an: EKG Interpretation: Normal sinus rhythm, HR-63, no STEMI, NJ/QRS/QTC is within normal limits. Radiology Impression Discussion of test interpretation with radiology: I have reviewed the radiologist's reading. Radiologist Impression: Please see the discussion above External Record Review External record reviewed: Outpatient record, Prior outpatient labs and Prior outpatient radiology Chronic Conditions Patient?s care impacted by: Diabetes and Hypertension Discharge Plan Discharge Clinical Impression: Chronic pain of right hip, Contusion of soft tissue Patient Disposition: Home, Self-Care Instructions: Chronic Pain (ED), Hip Pain (ED), Contusion in Adults (ED) Additional Instructions: 1. Resume all home medications as prescribed. Recommend [id number] Tylenol/ibuprofen as needed for pain control. 2. Please follow-up with your primary care doctor by calling the office 1st thing in the morning. Prescriptions: No Action multivitamin Tablet 1 tab PO DAILY cyclobenzaprine 10 mg tablet 1 tab PO TID PRN (Reason: muscle spasm) insulin lispro 100 unit/mL insulin pen See Protocol subcut TIDAC Protocol: Insulin Correction Scale Less than or equal to 110 ---- Give (units): 0 111 to 150 Give (units): 0 151 to 200 Give (units): 2 201 to 250 Give (units): 4 251 to 300 Give (units): 6 301 to 350 Give (units): 8 Greater than 350 Give (units): 10 Call MD if Blood Glucose > : 350 duloxetine 60 mg capsule,delayed release(DR/EC) 1 cap PO DAILY oxycodone-acetaminophen [Percocet] 5-325 mg tablet 1 tab PO Q4-6H PRN (Reason: pain) Qty: 20 0RF Rx Instructions: Partial Fill upon patient request. omeprazole 20 mg capsule,delayed release(DR/EC) 20 mg PO DAILY@0630 (DME) blood-glucose meter [FreeStyle Conway Lite] Kit See Rx Instructions Not Applicable DAILY Qty: 1 Rx Instructions: As directed levetiracetam 1,000 mg tablet 1,000 mg PO BID thiamine HCl (vitamin B1) 100 mg tablet 100 mg PO DAILY doxazosin 1 mg tablet 2 mg PO DAILY (DME) FreeStyle Lite Strips Strip See Rx Instructions Not Applicable TID Qty: 10 Rx Instructions: As directed duloxetine 30 mg capsule,delayed release(DR/EC) 30 mg PO DAILY magnesium oxide 400 mg (241.3 mg magnesium) tablet 400 mg PO BID folic acid 1 mg tablet 1 mg PO DAILY Trulicity 1.5 mg/0.5 mL pen injector 1.5 mg subcut TH@0900 clonidine HCl 0.2 mg tablet 0.2 mg PO BID melatonin 5 mg tablet 5 mg PO BEDTIME ropinirole 0.5 mg tablet 0.5 mg PO BEDTIME Flovent HFA 110 mcg/actuation HFA aerosol inhaler 2 puff PO BID lisinopril 40 mg tablet 40 mg PO DAILY metformin 1,000 mg tablet 1,000 mg PO BIDWM gabapentin 600 mg tablet 1,200 mg PO TID (DME) pen needle, diabetic [Sure Comfort Pen Needle] 31 gauge x 3/16 needle See Rx Instructions .ROUTE BID Qty: 50 Rx Instructions: As directed Referrals: [facility] [Primary Care Provider] -
--- NOTE | 2023-05-21 16:12 | ECG_ITS ---
Test Reason : LUE PAIN Blood Pressure : / mmHG Vent. Rate : 063 BPM Atrial Rate : 063 BPM P-R Int : 172 ms QRS Dur : 090 ms QT Int : 428 ms P-R-T Axes : 055 009 013 degrees QTc Int : 437 ms Normal sinus rhythm Normal ECG When compared with ECG of 25-MAY-2022 20:40, QT has shortened Referred By: Vero Littlejohn Electronically Signed By:DEEP ARSHAD MD
[2023-05-21 16:13] VITALS: BP 123/70; PULSE 82; O2SAT 98
[2023-05-21 16:59] LABS: MANUAL DIFF FLAG NO
[2023-05-21 17:00] LABS: Basophils Absolute Auto 0.1 X10*3/uL (0.0-0.2); Eosinophils Absolute Auto 0.2 X10*3/uL (0.0-0.4); Eosinophils Percent Auto 2.6 % (0-4); Hematocrit 42.5 % (37.0-47.0); Hemoglobin 14.2 g/dl (12.0-16.0); Imm Gran Abs Auto 0.04 X10*3/uL (0.00-0.03); Imm Gran Pct Auto 0.4 % (0.0-0.4); Lymphocytes Absolute Auto 2.7 X10*3/uL (1.2-4.9); Lymphocytes Percent Auto 29.5 % (20-40); Mean Corpuscular HGB Conc 33.4 g/dl (31.0-35.0); Mean Corpuscular Hemoglobin 26.8 pg (27.0-33.0); Mean Corpuscular Volume 80.2 fL (80.0-98.0); Mean Platelet Volume 11.1 fL (9.4-12.3); Monocytes Absolute Auto 0.7 X10*3/uL (0.1-1.2); Monocytes Percent Auto 7.5 % (2-11); Neutrophils Absolute Auto 5.4 x10*3/uL (2.0-8.3); Platelet Count 271 X10*3/uL (160-400); Red Cell Distribution Width 14.1 % (11.0-16.0); White Blood Count 9.1 X10*3/uL (4.8-10.8)
[2023-05-21 17:04] LABS: VBG Base Excess 4.4 mmol/L; VBG HCO3 30 mmol/L (22-26); VBG pCO2 52 mmHg; VBG pH 7.37 (7.32-7.43); VBG pO2 34 mmHg
[2023-05-21 17:09] LABS: Venous Blood Gas Refer to POC result
[2023-05-21 17:30] LABS: Alanine Aminotransferase 30 U/L (0-31); Albumin Level 3.5 g/dL (3.5-5.0); Alkaline Phosphatase 92 U/L (39-117); Anion Gap 12 (12-20); Aspartate Amino Transferase 32 U/L (5-31); Bilirubin Direct 0.2 mg/dL (0.0-0.5); Bilirubin Total 0.4 mg/dL (0.0-1.0); Blood Urea Nitrogen 8 mg/dL (9-16); Calcium 8.7 mg/dL (8.4-10.2); Carbon Dioxide 26 mmol/L (22-29); Chloride 103 mmol/L (96-108); Creatinine Clr Calc Pharmacy 82.1; Estimated Glomerular Filt Rate > 60; Glucose Random 399 mg/dL (60-115); Magnesium 1.6 mg/dL (1.6-2.6); Potassium 3.7 mmol/L (3.3-5.1); Sodium 137 mmol/L (135-145); Total Protein 7.1 g/dL (6.5-8.0)
[2023-05-21 19:03] LABS: Beta-Hydroxybutyrate 0.09 mmol/L (0.02-0.27)
[2023-05-21 22:05] VITALS: BP 142/84; PULSE 69; RESP 14; TEMP 36.6; O2SAT 99
--- OUTSIDE RECORDS SUMMARY | 2023-05-21 22:12 | XMS_ITS | Continuity of Care Document ---
Author Name Unknown Organization [facility] Address [address] [place] [id number]- Care Team Providers Care Test Engine Operator Name Role Phone Jennifer Mckenzie DO Primary Care Physician Encounter [facility] Date(s): 01/12/21 - 03/23/[address] [address] Attending Physician: Not on Staff, Attending MD Referring Physician: Jennifer Mckenzie DO Allergies, Adverse Reactions, Alerts Substance Reaction Severity Status NKA Active Immunizations Given and Recorded Vaccine Date Status Refusal Reason influenza virus vaccine, inactivated 1 04/26/09 Gi yulissa Pneumococcal Vaccine (oldterm) 12/30/06 Given 1Result Comment: Lot #[id number] Medications Abilify 15 mg oral tablet 15 mg, 1, tablet, By Mouth, Daily, # 30 tablet, Refills 0, Tot. Refills 0, Maintenance, 08/06/18 12:01:46 EST, Route to Pharmacy Electronically, [id number], [facility] - Start Date: 08/06/18 Status: Ordered cloNIDine 0.1 mg oral tablet 0.2 mg, By Mouth, 2 times a day, Wean off as tollerated keeping SBP <130, # 30 tablet, Refills 0, Tot. Refills 0, Maintenance, 11/11/18 12:44:10 EDT, Do Not Route Start Date: 11/11/18 Status: Ordered folic acid 1 mg oral tablet 1 mg, 1, tablet, By Mouth, Daily, # 30 tablet, Refills 0, Tot. Refills 0, Maintenance, 11/11/18 12:46:47 EDT, Do Not Route Start Date: 11/11/18 Status: Ordered gabapentin 600 mg oral tablet 1 tablet = 600 mg, By Mouth, 3 times a day, # 90 tablet, 0 Refills, Maintenance, 11/11/18 12:43:20 EDT, Tablet Start Date: 11/11/18 Status: Ordered ibuprofen 400 mg oral tablet = 400 mg, By Mouth, 3 times a day, PRN Pain , Mild, with food or milk, # 15 tablet, 0 Refills, Maintenance, 07/13/15 12:45:01, Tablet, 400 mg By Mouth 3 times a day,PRN:Pain , Mild,Instr:with food ormilk Start Date: 07/13/15 Status: Ordered lisinopril 10 mg oral tablet 10 mg, 1, tablet, By Mouth, Daily, # 30 tablet, Refills 0, Tot. Refills 0, Maintenance, 08/06/18 12:00:43 EST, Route to Pharmacy Electronically, [id number], [facility] - Start Date: 08/06/18 Status: Ordered multivitamin Multiple Vitamins oral tablet 1 tablet, By Mouth, Daily, # 30 tablet, 0 Refills, Maintenance, 11/11/18 12:46:57 EDT, Tablet Start Date: 11/11/18 Status: Ordered prazosin 2 mg oral capsule 1 capsule = 2 mg, By Mouth, Daily at bedtime, # 30 capsule, 0 Refills, Maintenance, 08/06/18 12:02:38 EST, Capsule Start Date: 08/06/18 Status: Ordered Sodium Chloride 1000 mg oral tablet = 1 Gm, By Mouth, Every 8 hours, # 90 tablet, 0 Refills, Maintenance, 11/11/18 12:50:03 EDT, Tablet Start Date: 11/11/18 Status: Ordered traZODone 100 mg oral tablet 200 mg, By Mouth, Daily at bedtime, Take 1 to 2 tablets by mouth at bedtime, for insomnia, # 60 tablet, Refills 0, Tot. Refills 0, Maintenance, 11/11/18 12:43:47 EDT, Do Not Route Start Date: 11/11/18 Status: Ordered Problem List Condition Effective Dates Status Health Status Inform ant Hypertension(Confirmed) Active Morbid obesity(Confirmed) Active Social History Social History Type Response Smoking Status Never smoker entered on: 08/02/14 Sex
--- OUTSIDE RECORDS SUMMARY | 2023-05-21 22:12 | XMS_ITS | Continuity of Care Document ---
Author Name Unknown Organization [facility] Address [address] [place] [address]- Care Team Providers Care Photo Intern Name Role Phone Jennifer Mckenzie DO [id number] - 06/22/[address] [address]- Attending Physician: Jennifer Mckenzie DO Admitting Physician: Jennifer Mckenzie DO Referring Physician: Jennifer Mckenzie DO Allergies, Adverse Reactions, Alerts No Known Allergies Immunizations Given and Recorded Vaccine Date Status Refusal Reason influenza virus vaccine, inactivated 1 04/26/09 Gi yulissa Pneumococcal Vaccine (oldterm) 12/30/06 Given 1Result Comment: Lot #[id number] Medications Abilify 15 mg oral tablet 15 mg, 1, tablet, By Mouth, Daily, # 30 tablet, Refills 0, Tot. Refills 0, Maintenance, 08/06/18 12:01:46 EST, Route to Pharmacy Electronically, [id number], [facility] - Start Date: 08/06/18 Status: [...] 08/06/18 12:00:43 EST, Route to Pharmacy Electronically, [id number], [facility] - Start Date: 08/06/18 Status: [...] Date: 11/11/18 Status: Ordered Problem List Condition Confirmation Course Effective Dates Status Health [facility] Informant Hypertension Confirmed Active Morbid obesity Confirmed Active Social History Social History Type Response Smoking Status Never smoker entered on: 08/02/14 Sex Patient Care team information Care Team Personnel Name: Sudhakar Ramos RN Position: [facility] ED RN W/OE and Tasks Member Role: Primary Care Nurse Name: Gina Hilton RN Position: [facility] PCO RN Member Role: Primary Care Nurse Name: Armand Carter RN Position: [facility] RN Member Role: Primary Care Nurse Name: Jennifer Mckenzie DO Position: [facility] Outreach Member Role: PCP Address: Address: [address] [place] [id number] Name: Kris Borrego RN Position: [facility] RN Member Role: Primary Care Nurse Care Team Related Persons Name: LAMBERTO HOWE Address: home [address] [place] [address] Name: LATISHA PINEDA Name: NEGRITA PRASAD Address: home [address] [place] [address]
--- OUTSIDE RECORDS SUMMARY | 2023-05-21 22:12 | XMS_ITS | Continuity of Care Document ---
Author Name Unknown Organization [facility] Address [address] [place] [address]- Care Team Providers Care Escalator Service Mechanic Name Role Phone Jennifer Mckenzie DO Primary Care Physician Encounter [facility] Date(s): 02/21/21 - 03/23/[address] [address]- Attending Physician: Admtr, Ar8 Allergies, Adverse Reactions, Alerts Substance Reaction Severity Status NKA Active Immunizations Given and Recorded Vaccine Date Status Refusal Reason influenza virus vaccine, inactivated 1 04/26/09 Gi yulissa Pneumococcal Vaccine (oldterm) 12/30/06 Given 1Result Comment: Lot #[id number] Medications Abilify 15 mg oral tablet 15 mg, 1, tablet, By Mouth, Daily, # 30 tablet, Refills 0, Tot. Refills 0, Maintenance, 08/06/18 12:01:46 EST, Route to Pharmacy Electronically, [id number], [facility] - Start Date: 08/06/18 Status: [...] 08/06/18 12:00:43 EST, Route to Pharmacy Electronically, [id number], [facility] - Start Date: 08/06/18 Status: [...]
--- OUTSIDE RECORDS SUMMARY | 2023-05-21 22:12 | XMS_ITS | Continuity of Care Document ---
Author Name Unknown Organization [facility] Address [address] [place] [address]- Care Team Providers Care College Hire Name Role Phone Jennifer Mckenzie DO Primary Care Physician [phone] [place] [facility] [place] [id number] Date(s): 06/01/22 - 07/01/[address] [address] Attending Physician: Randolph Bryan Admitting Physician: AdmtrRandolph Referring Physician: Admtr Ar8 Allergies, Adverse Reactions, Alerts No Known Allergies Immunizations Given and Recorded Vaccine Date Status Refusal Reason influenza virus vaccine, inactivated 1 04/26/09 Gi yulissa Pneumococcal Vaccine (oldterm) 12/30/06 Given 1Result Comment: Lot #[id number] Medications Abilify 15 mg oral tablet 15 mg, 1, tablet, By Mouth, Daily, # 30 tablet, Refills 0, Tot. Refills 0, Maintenance, 08/06/18 12:01:46 EST, Route to Pharmacy Electronically, [id number], [facility] - Start Date: 08/06/18 Status: [...] 08/06/18 12:00:43 EST, Route to Pharmacy Electronically, [id number], [facility] - Start Date: 08/06/18 Status: [...] Team Personnel Name: Sudhakar Ramos RN Position: [facility] ED RN W/OE and Tasks Member Role: Primary Care Nurse Name: Gina Hilton RN Position: [facility] PCO RN Member Role: Primary Care Nurse Name: Armand Carter RN Position: [facility] RN Member Role: Primary Care Nurse Name: Jennifer Mckenzie DO Position: [facility] Outreach Member Role: PCP Address: Address: [address] [place] [id number] Name: Kris Borrego RN Position: [facility] RN Member Role: Primary Care Nurse Care Team Related Persons Name: LAMBERTO HOWE Address: home [address] [place] [address] Name: LATISHA PINEDA Name: NEGRITA PRASAD Address: home [facility] [place] [address]
--- OUTSIDE RECORDS SUMMARY | 2023-05-21 22:12 | XMS_ITS | Continuity of Care Document ---
Author Name Unknown Organization [facility] ter Address [address] [place] [address]- Care Team Providers Care News Analyst Name Role Phone Jennifer Mckenzie DO Primary Care Physician Encounter [facility] [place] Date(s): 05/19/21 - 05/20/[address] [address]- Encounter Diagnosis History of stroke(Final) - 05/20/21 Paralysis of right lower extremity(Final) - 05/20/21 Paralysis of right upper extremity(Final) - 05/20/21 Discharge Disposition: A-D/C Home Attending Physician: Camille Steen MD Admitting Physician: Camille Steen MD Referring Physician: Not on Staff, Referring MD Allergies, Adverse Reactions, Alerts Substance Reaction Severity Status NKA Active Immunizations Given and Recorded Vaccine Date Status Refusal Reason influenza virus vaccine, inactivated 1 04/26/09 Gi yulissa Pneumococcal Vaccine (oldterm) 12/30/06 Given 1Result Comment: Lot [id number] Medications Abilify 15 mg oral tablet 15 mg, 1, tablet, By Mouth, Daily, # 30 tablet, Refills 0, Tot. Refills 0, Maintenance, 08/06/18 12:01:46 EST, Route to Pharmacy Electronically, [id number], [facility] - Start Date: 08/06/18 Status: Ordered cloNIDine 0.1 mg oral tablet 0.2 mg, By Mouth, 2 times a day, Wean off as tollerated keeping SBP <130, # 30 tablet, Refills 0, Tot. Refills 0, Maintenance, 11/11/18 12:44:10 EDT, Do Not Route Start Date: 11/11/18 Status: Ordered cyclobenzaprine 10 mg oral tablet 10 mg, Tablet, By Mouth, 10/30/21 9:00:00 EDT Start Date: 05/20/21 Stop Date: 05/20/21 Status: Completed folic acid 1 mg oral tablet 1 [...] 08/06/18 12:00:43 EST, Route to Pharmacy Electronically, [id number], [facility] - Start Date: 08/06/18 Status: Ordered [...] Inform ant Hypertension(Confirmed) Active Morbid obesity(Confirmed) Active Results Radiology Reports * Exam Date Time Procedure Performing Provider Status 05/19/21 8:49 PM Chest 2 Views Frontal and Lat Serina Albert; Auth (Verified) Notes: (Chest 2 Views Frontal and Lat) Reason For Exam: Cough RESULT: Chest 2 Views Frontal and Lat Chest 2 Views Frontal and Lat Refer to EMR; Hx of Present Illness: pt from streets; reports she has been on the streets since saturday; pt recently reports d c from SNF after 2.5 years and 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 LUNGS AND PLEURA: No evidence of focal consolidation. No pleural effusion. No pneumothorax. HEART, MEDIASTINUM AND ORAL: Heart is normal in size. Normal upper mediastinal and hilar contour. BONES AND SOFT TISSUES: No acute abnormality. IMPRESSION: No acute abnormality. WSN: [id number] Ordering Physician: Dat Arriaza Dictated By: Roderick Kathleen MD Dictated Date/Time: 05/19/21 8:52 pm Reviewed By: Roderick Kathleen MD Signed By: Roderick Kathleen MD Signed Date/Time: 05/19/21 8:52 pm Transcribed By: DARLYN Transcribed Date/Time: 05/19/21 8:50 pm Vital Signs Most recent to oldest [Reference Range]: 1 2 3 Oxygen Saturation [94-100 %] 99 % (05/20/21 3:00 PM) 97 % (05/20/21 1:45 PM) 98 % (05/20/21 11:16 AM) Pulse Rate [55-90 bpm] 78 bpm (05/20/21 3:00 PM) 96 bpm *H* (05/20/21 1:45 PM) 104 bpm *H* (05/20/21 11:16 AM) Blood Pressure [90-138/55-84 mm Hg] 138/78mm Hg (05/20/21 3:00 PM) 147/89mm Hg *H* (05/20/21 1:45 PM) 160/93mm Hg *H* (05/20/21 11:16 AM) Respiratory Rate [16-30 br/min] 18 br/min (05/20/21 3:00 PM) 18 br/min (05/20/21 1:45 PM) 18 br/min (05/20/21 11:27 AM) Temperature [96.8-100.4 DegF] 98.3 DegF (05/20/21 3:00 PM) 98.3 DegF (05/20/21 1:45 PM) 98.0 DegF (05/20/21 11:16 AM) Liters per Minute 0 L/min (05/20/21 7:57 AM) Mode of Delivery (Oxygen) Room air (05/20/21 3:00 PM) Room air (05/20/21 1:45 PM) Room air (05/20/21 11:16 AM) Blood pressure sites Arm, right (05/20/21 3:00 PM) Arm, left (05/20/21 1:45 PM) Arm, left (05/20/21 11:16 AM) Temperature Route Oral (05/20/21 3:00 PM) Oral (05/20/21 1:45 PM) Oral (05/20/21 11:16 AM) Social History Social History Type Response Smoking Status Never smoker entered on: 08/02/14 Sex
--- OUTSIDE RECORDS SUMMARY | 2023-05-21 22:12 | XMS_ITS | Continuity of Care Document ---
Author Name Unknown Organization [facility] Address [address] [place] [address]- Care Team Providers Care Harbor Engineer Name Role Phone Buzz BLOCK GREASER, Cathy Rebolledo Primary Care Physician Encounter [facility] [place] Date(s): 09/10/22 - 10/12/[address] [address] Attending Physician: Not on Staff, Attending MD Allergies, Adverse Reactions, Alerts No Known Allergies Immunizations Given and Recorded Vaccine Date Status Refusal Reason influenza virus vaccine, inactivated 1 04/26/09 Gi yulissa Pneumococcal Vaccine (oldterm) 12/30/06 Given 1Result Comment: Lot #[id number] Medications Abilify 15 mg oral tablet 15 mg, 1, tablet, By Mouth, Daily, # 30 tablet, Refills 0, Tot. Refills 0, Maintenance, 08/06/18 12:01:46 EST, Route to Pharmacy Electronically, [id number], [facility] - Start Date: 08/06/18 Status: [...] 08/06/18 12:00:43 EST, Route to Pharmacy Electronically, [id number], [facility] - Start Date: 08/06/18 Status: [...] Team Personnel Name: Sudhakar Ramos RN [facility] RN W/OE and Tasks Member Role: Primary Care Nurse Name: Gina Hilton RN Position: [facility] PCO RN Member Role: Primary Care Nurse Name: Armand Carter RN Position: [facility] RN Member Role: Primary Care Nurse Name: Kris Borrego RN Position: [facility] RN Member Role: Primary Care Nurse Name: Cathy Gerber NP Position: [facility] Outreach Member Role: PCP Address: Address: [address] [place] [address]- Care Team Related Persons Name: LAMBERTO HOWE Address: home [address] [place] [address] Name: LATISHA PINEDA Name: NEGRITA PRASAD Address: home [address] [place] [address]
--- OUTSIDE RECORDS SUMMARY | 2023-05-21 22:12 | XMS_ITS | Continuity of Care Document ---
Author Name Unknown Organization [facility] Address [address] [place] [address]- Care Team Providers Care Casting Director Name Role Phone Buzz LEOS, Cathy Rebolledo Primary Care Physician [phone] Encounter [facility] [place] Date(s): 09/27/22 - 11/03/[address] [address]- Attending Physician: Not on Staff, Attending MD Referring Physician: Cathy Gerber NP Allergies, Adverse Reactions, Alerts No Known Allergies Immunizations Given and Recorded Vaccine Date Status Refusal Reason influenza virus vaccine, inactivated 1 04/26/09 Gi yulissa Pneumococcal Vaccine (oldterm) 12/30/06 Given 1Result Comment: Lot #[id number] Medications Abilify 15 mg oral tablet 15 mg, 1, tablet, By Mouth, Daily, # 30 tablet, Refills 0, Tot. Refills 0, Maintenance, 08/06/18 12:01:46 EST, Route to Pharmacy Electronically, [id number], [facility] - Start Date: 08/06/18 Status: Ordered [...] 08/06/18 12:00:43 EST, Route to Pharmacy Electronically, [id number], [facility] - Start Date: 08/06/18 Status: Ordered [...] Team Personnel Name: Sudhakar Ramos RN Position: [facility] ED RN W/OE and Tasks Member Role: Primary Care Nurse Name: Gina Hilton RN Position: [facility] PCO RN Member Role: Primary Care Nurse Name: Armand Carter RN Position: [facility] RN Member Role: Primary Care Nurse Name: Kris Borrego RN Position: [facility] RN Member Role: Primary Care Nurse Name: Cathy Gerber NP Position: [facility] Outreach Member Role: PCP Address: Address: [address] [place] [address]- Care Team Related Persons Name: LAMBERTO HOWE Address: home [address] [place] [address] Name: LATISHA PINEDA Name: NEGRITA PRASAD Address: home [address] [place] [address]
--- OUTSIDE RECORDS SUMMARY | 2023-05-21 22:12 | XMS_ITS | Continuity of Care Document ---
Author Name Unknown Organization [facility] Address [address] [place] [address]- Care Team Providers Care Sodium Chlorite Operator Name Role Phone Jennifer Mckenzie DO Primary Care Physician [phone] [id number] Date(s): 05/29/22 - 07/01/[address] [address]- Attending Physician: Jennifer Mckenzie DO Admitting Physician: Jennifer Mckenzie DO Referring Physician: Jennifer Mckenzie DO Allergies, Adverse Reactions, Alerts No Known Allergies Immunizations Given and Recorded Vaccine Date Status Refusal Reason influenza virus vaccine, inactivated 1 04/26/09 Gi yulissa Pneumococcal Vaccine (oldterm) 12/30/06 Given 1Result Comment: Lot #[id number] Medications Abilify 15 mg oral tablet 15 mg, 1, tablet, By Mouth, Daily, # 30 tablet, Refills 0, Tot. Refills 0, Maintenance, 08/06/18 12:01:46 EST, Route to Pharmacy Electronically, [id number], [facility] - Start Date: 08/06/18 Status: [...] 08/06/18 12:00:43 EST, Route to Pharmacy Electronically, [id number], [facility] - Start Date: 08/06/18 Status: [...] Team Personnel Name: Sudhakar Ramos RN Position: [facility] ED RN W/OE and Tasks Member Role: Primary Care Nurse Name: Gina Hilton RN Position: [facility] PCO RN Member Role: Primary Care Nurse Name: Armand Carter RN Position: [facility] RN Member Role: Primary Care Nurse Name: Jennifer Mckenzie DO Position: [facility] Outreach Member Role: PCP Address: Address: [address] [place] [id number] Name: Kris Borrego RN Position: [facility] RN Member Role: Primary Care Nurse Care Team Related Persons Name: LAMBERTO HOWE Address: home [address] [place] [address] Name: LATISHA PINEDA Name: NEGRITA PRASAD Address: home [address] [place] [address]
--- OUTSIDE RECORDS SUMMARY | 2023-05-21 22:12 | XMS_ITS | Continuity of Care Document ---
Author Name Unknown Organization [facility] Address [address] [place] [address]- Care Team Providers Care Delivery Rep Name Role Phone Buzz EDUCATION GENERAL MANAGER, Cathy Rebolledo Primary Care Physician Encounter [facility] [place] Date(s): 10/04/22 - 11/03/[address] [address]- Attending Physician: Admtr, Ar8 Allergies, Adverse Reactions, Alerts No Known Allergies Immunizations Given and Recorded Vaccine Date Status Refusal Reason influenza virus vaccine, inactivated 1 04/26/09 Gi yulissa Pneumococcal Vaccine (oldterm) 12/30/06 Given 1Result Comment: Lot #[id number] Medications Abilify 15 mg oral tablet 15 mg, 1, tablet, By Mouth, Daily, # 30 tablet, Refills 0, Tot. Refills 0, Maintenance, 08/06/18 12:01:46 EST, Route to Pharmacy Electronically, [id number], [facility] - Start Date: 08/06/18 Status: Ordered [...] 08/06/18 12:00:43 EST, Route to Pharmacy Electronically, [id number], [facility] - Start Date: 08/06/18 Status: Ordered [...] Team Personnel Name: Sudhakar Ramos RN Position: [facility] ED RN W/OE and Tasks Member Role: Primary Care Nurse Name: Gina Hilton RN Position: [facility] PCO RN Member Role: Primary Care Nurse Name: Armand Carter RN Position: [facility] RN Member Role: Primary Care Nurse Name: Kris Borrego RN Position: [facility] RN Member Role: Primary Care Nurse Name: Cathy Gerber NP Position: [facility] Outreach Member Role: PCP Address: Address: [address] [place] [address]- Care Team Related Persons Name: LAMBERTO HOWE Address: home [address] [place] [address] Name: LATISHA PINEDA Name: NEGRITA PRASAD Address: home [address] [place] [address]
--- OUTSIDE RECORDS SUMMARY | 2023-05-21 22:12 | XMS_ITS | Continuity of Care Document ---
Author Name Unknown Organization [facility] ter Address [address] [place] [address]- Care Team Providers Care Fiberglass Technician Name Role Phone Buzz LEOS, Cathy Rebolledo Primary Care Physician En[place] [facility] [place] Date(s): 01/16/23 - 01/17/[address] [address]- Discharge Disposition: A-D/C Home Attending Physician: Juanita Salvador DO Admitting Physician: Juanita Salvador DO Referring Physician: Not on Staff, Referring MD Allergies, Adverse Reactions, Alerts No Known Allergies Immunizations Given and Recorded Vaccine Date Status Refusal Reason influenza virus vaccine, inactivated 1 04/26/09 Gi yulissa Pneumococcal Vaccine (oldterm) 12/30/06 Given 1Result Comment: Lot #[id number] Medications Abilify 15 mg oral tablet 15 mg, 1, tablet, By Mouth, Daily, # 30 tablet, Refills 0, Tot. Refills 0, Maintenance, 08/06/18 12:01:46 EST, Route to Pharmacy Electronically, [id number], [facility] - Start Date: 08/06/18 Status: [...] 08/06/18 12:00:43 EST, Route to Pharmacy Electronically, [id number], [facility] - Start Date: 08/06/18 Status: [...] Hypertension Confirmed Active Morbid obesity Confirmed Active Results Radiology Reports * Exam Date Time Procedure Performing Provider Status 01/17/23 5:[address] Abd/Pelvis W/ IV Contrast Only Philip Steph newberry; Auth (Verified) Notes: (CT Abd/Pelvis W/ IV Contrast Only) Reason For Exam: RLQ abdominal pain;Other: RESULT: CT Abd/Pelvis W/ IV Contrast Only CT Abd/Pelvis W/ IV Contrast Only INDICATION: pt reports R sided flank pain that began last night, denies any other complaints; TECHNIQUE: Spiral CT through the abdomen and pelvis with IV contrast formatted in 3 planes. 100 cc of Omnipaque 300 was administered intravenously. This study was performed without oral contrast. Weight-based protocol using automatic tube modulation was used to optimize exposure parameters. CTDIvol Body: 15.50 mGy, DLP Body: 814 mGy*cm. COMPARISON: None. FINDINGS: Power Generation Technician View Findings, Lines and Tubes: None. Visualized Chest: Lung bases are clear. No pleural effusion. The heart is normal in size. No pericardial effusion. There is a right cardiophrenic lymph node measuring up to 9 mm, prominent but not enlarged. Diaphragm: Normal. Tiny lymph nodes adjacent to the distal esophagus. Liver: Diffuse low-attenuation throughout the liver parenchyma consistent with hepatic steatosis. Mildly enlarged liver. No evidence of mass. Gallbladder: Absent consistent with prior cholecystectomy. Bile ducts: No biliary ductal dilation. Spleen: Mildly enlarged spleen. Pancreas: Normal. Adrenal glands: Left adrenal gland 1.2 x 0.8 cm indeterminate attenuation nodule. Kidneys and ureters: No hydronephrosis, obstructing stones, or suspicious masses. There is a 2 mm nonobstructing stone in the mid to lower pole collecting system of the right kidney. Bladder: Normal. Reproductive organs: Unremarkable. Stomach, small bowel, and large bowel: No bowel obstruction. Moderate colonic stool burden with formed stool present to the rectum. Appendix: Normal. Peritoneum and retroperitoneum: No ascites or pneumoperitoneum. No omental or mesenteric lesions. Lymph nodes: No enlarged lymph nodes. Blood vessels: Mild eccentric noncalcified atherosclerosis of the abdominal aorta. No aneurysm. No evidence of venous thrombosis. Abdominal and pelvic wall: No acute abnormality. Mild broad-based diastases of midline. No focal hernia. Bones: No acute abnormality. Mild endplate degenerative changes. IMPRESSION: No acute intra-abdominal pathology. Nonobstructing right renal calculus. No hydroureteronephrosis. Left adrenal nodule measuring 1.2 cm is probably benign, although risk is increased if there is a prior history of malignancy. Consider biochemical assays to determine functional status and exclude pheochromocytoma. Also consider follow-up adrenal CT protocol or chemical-shift MRI in 12 months to assess stability. Brian KRAUS, et al. Management of Incidental Adrenal Masses: A White Paper of the ACR Incidental Findings Committee. J Am Frank Radiol. 2017 Feb;14(8):9021-4249. An actionable message (Yellow) has been communicated via the [employer] system on 01/17/2023 7:46 AM, Message ID [id number]. I have personally reviewed the images and I agree with this report. WSN: [id number] Ordering Physician: Umer Armas Dictated By: Wily Funez MD Dictated Date/Time: 01/17/23 7:46 am Reviewed By: Lashanda Mason MD Signed By: Lashanda Mason MD Signed Date/Time: 01/17/23 7:51 am Transcribed By: DARLYN Transcribed Date/Time: 01/17/23 5:39 am Vital Signs Most recent to oldest [Reference Range]: 1 2 3 Oxygen Saturation [94-100 %] 100 % (01/17/23 6:55 AM) 100 % (01/17/23 3:59 AM) 100 % (01/17/23 1:49 AM) Pulse Rate [55-90 bpm] 62 bpm (01/17/23 6:55 AM) 73 bpm (01/17/23 3:59 AM) 77 bpm (01/17/23 1:49 AM) Blood Pressure [90-138/55-84 mm Hg] 102/64mm Hg (01/17/23 6:55 AM) 129/58mm Hg (01/17/23 3:59 AM) 116/79mm Hg (01/17/23 1:49 AM) Respiratory Rate [16-30 br/min] 18 br/min (01/16/23 4:24 PM) Temperature [96.8-100.4 DegF] 98.1 DegF (01/17/23 1:49 AM) 98.1 DegF (01/16/23 10:58 PM) 98.8 DegF (01/16/23 9:32 PM) Mode of Delivery (Oxygen) Room air (01/17/23 6:55 AM) Room air (01/17/23 3:59 AM) Room air (01/17/23 1:49 AM) Blood pressure sites Arm, left (01/17/23 6:55 AM) Arm, left (01/17/23 3:59 AM) Arm, right (01/16/23 6:48 PM) Temperature Route Oral (01/17/23 1:49 AM) Axillary (01/16/23 10:58 PM) Oral (01/16/23 9:32 PM) Social History Social History Type Response Smoking Status Never smoker entered on: 08/02/14 Sex Note * Pawel WASHBURN, Umer Ireland: PERFORM Event Display: Patient Education Leaflets Authored Date: [id number] Unknown Causes of Abdominal Pain (Adult) ?? [id number] Unknown Causes of Abdominal Pain (Adult) The exact cause of your belly (abdominal) pain is not clear. Your exam and tests don't suggest a dangerous cause at this time. This does not mean that this is something to worry about. Everyone likesto know the exact cause of the problem. But sometimes with belly pain, there is no clear-cut cause,and this could be a good thing. Your symptoms can be treated, and you should feel better.?? Your condition does not seem serious now. But sometimes the signs of a serious problem may take more time to appear. For this reason,??it's important for you to watch for any new symptoms, problems,??or worsening of your condition. Over the next few days, the abdominal pain may come and go. Or it may be constant. Other common symptoms can include nausea and vomiting. Sometimes it can be difficult to tell if you feel nauseous. You may just feel bad and not connect that feeling to nausea. Constipation, diarrhea, and a fever maygo along with the pain. The pain may continue even if treated correctly over the following days. Depending on how things go, sometimes the cause can become clear and you may need more??or different treatment. You may also need other evaluations, medicines, or tests. Home care Your healthcare provider may prescribe medicine for pain, symptoms, or an infection. ??Follow the healthcare provider's instructions for taking these medicines. General care ??? Rest as much as you can until your next exam. No strenuous activities. ??? Try to not do anything that may have caused your symptoms. This might be not taking any medicines unless otherwise directed by your healthcare provider. It might be not eating certain foods or doing certain activities. ??? Find positions that ease discomfort. A small pillow placed on your belly may help relieve pain. ??? Something warm on your belly such as a heating pad may help, but be careful not to burn yourself. Diet ??? Don???t??force yourself to eat, especially if having cramps, vomiting, or diarrhea. ??? Water is important so you don't get dehydrated. Soup may also be good. Sports drinks may also help, especially if they are not too acidic. Don't drink sugary drinks as this can make things worse. Take liquids in small amounts. Don???t??guzzle them. ??? Caffeine sometimes makes the pain and cramping worse. ??? Don???t take??dairy products if you have vomiting or diarrhea. ??? Don't eat large amounts at a time. Eat several small meals during the day instead of 2 or 3 larger meals. Wait a few minutesbetween bites. ??? Eat a diet low in fiber (called a low-residue diet). Foods allowed include refined breads, white rice, fruit and vegetable juices without pulp, tender meats. These foods will pass more easily through the intestine. ??? Don???t have??whole-grain foods, whole fruits and vegetables,meats, seeds and nuts, fried or fatty foods, dairy, alcohol and spicy foods until your symptoms go away. ?? Follow-up care Follow up with your healthcare provider, or as advised, if your pain does not begin to improve in the next 24 hours. ?? Call 911 Call?? 911 if any of these occur: ??? Trouble breathing ??? Confusion ??? Fainting or loss of consciousness ??? Rapid heart rate ??? Seizure ?? When to seek medical advice Call your healthcare provider right away if any of these occur: ??? Pain gets worse or moves to theright lower abdomen ??? New or worsening vomiting or diarrhea ??? Swelling of the abdomen ??? Unable to pass stool for more than??3 days ??? Fever of 100.4??F (38??C) or higher, or as directed by your healthcare provider ??? Blood in vomit or bowel movements (dark red or black color) ??? Yellow color of eyes and skin (jaundice) ??? Weakness, dizziness ??? Chest, arm, back, neck, or jaw pain ??? Can't keep down medicines, liquids, or water because of too much vomiting ??? If you have a vagina: unexpected vaginal bleeding or missed period ?? Last Reviewed Date: 2021 ?? [id number] [employer]. All rights reserved. This information is not intended as a substitute for professional medical care. Always follow your healthcare professional's instructions. ?? Patient Care team information Care Team Personnel Name: Sudhakar Ramos RN Position: [facility] ED RN W/OE and Tasks Member Role: Primary Care Nurse Name: Gina Hilton RN Position: [facility] Office Staff Member Role: Primary Care Nurse Name: Armand Carter RN Position: [facility] RN Member Role: Primary Care Nurse Name: Kris Borrego RN Position: [facility] RN Member Role: Primary Care Nurse Name: Cathy Gerber NP Position: [facility] Outreach Member Role: PCP Address: Address: [address] [place] [address]- Name: Sindy Man Position: [facility] ED [facility] Name: Umer Trujillo Position: [facility] Associate Professional Member Role: ED Physician Social Media Community Manager Address: Address: [address] [place] [address] [place] [address]- Name: Cindy Nelson RN Position: [facility] ED RN W/OE and Tasks Member Role: Patient Care Provider Name: Juanita Salvador DO Position: [facility] ED Medicine MD Member Role: Admitting Physician Address: Address: [address] [place] [address]- Care Team Related Persons Name: LAMBERTO HOWE Address: home [address] [place] [address] Name: LATISHA PINEDA Name: NEGRITA PRASAD Address: home [address] [place] [address]
--- OUTSIDE RECORDS SUMMARY | 2023-05-21 22:12 | XMS_ITS | Continuity of Care Document ---
Author Name Unknown Organization [facility] Address [address] [place] [id number]- Care Team Providers Care Juvenile Detention Officer Name Role Phone Cathy Gerber NP Primary Care Physician En[place] [facility] [place](s): 09/11/22 - 10/20/[address] [id number]- Attending Physician: Mahi Higgins CNM Admitting Physician: Mahi Higgins CNM Allergies, Adverse Reactions, Alerts No Known Allergies Immunizations Given and Recorded Vaccine Date Status Refusal Reason influenza virus vaccine, inactivated 1 04/26/09 Gi yulissa Pneumococcal Vaccine (oldterm) 12/30/06 Given 1Result Comment: Lot #[id number] Medications Abilify 15 mg oral tablet 15 mg, 1, tablet, By Mouth, Daily, # 30 tablet, Refills 0, Tot. Refills 0, Maintenance, 08/06/18 12:01:46 EST, Route to Pharmacy Electronically, [id number], [facility] - Start Date: 08/06/18 Status: Ordered [...] 08/06/18 12:00:43 EST, Route to Pharmacy Electronically, [id number], [facility] - Start Date: 08/06/18 Status: Ordered [...] Team Personnel Name: Sudhakar Ramos RN Position: [facility] ED RN W/OE and Tasks Member Role: Primary Care Nurse Name: Gina Hilton RN Position: [facility] PCO RN Member Role: Primary Care Nurse Name: Armand Carter RN Position: [facility] RN Member Role: Primary Care Nurse Name: Kris Borrego RN Position: [facility] RN Member Role: Primary Care Nurse Name: Cathy Gerber NP Position: [facility] Outreach Member Role: PCP Address: Address: [address] [place] [id number]- Care Team Related Persons Name: LAMBERTO HOWE Address: [address] [place] [address] Name: LATISHA PINEDA Name: NEGRITA PRASAD Address: home [address] [place] [id number]
--- NOTE | 2023-05-21 22:33 | MHC.EDTECH ---
Dr. Flores said not to take POC due to patient poor intake of snacks
--- NOTE | 2023-05-21 22:48 | MHC.EDTECH ---
Patient used bedpan
[2023-05-22] VITALS: PULSE 63; RESP 16; O2SAT 97
[2023-05-22] MEDS: Ibuprofen 400 MG TABLET PO (00:42)
[2023-05-22] MEDS: Acetaminophen 325 MG TABLET 975 MG PO (00:42)
--- NOTE | 2023-05-22 01:02 | MHC.EDTECH ---
Call out to zofia at 0102 to book transport for pt back home, estimated eta given was 0130
--- NOTE | 2023-05-22 01:26 | PC.NURSE ---
pt has been laying on her left arm with her elbow bent. pt states she still has pain to her wrist. all test neg and pt is ready for discharge via ambulance due to pt states she doesnt walk.
[2023-05-22 02:21] VITALS: RESP 16
[2023-05-22 02:23] VITALS: RESP 16
== END 2023-05-22 02:25 | disposition home or self-care (01) ==
PROVIDERS: Physician Assistant; Emergency Provider Student in an Organized Health Care Education/Training Program
DX: M25.551 Pain in right hip (principal); G89.29 Other chronic pain; S60.222A Contusion of left hand, initial encounter; W23.0XXA Caught, crushed, jammed, or pinched between moving objects, initial encounter; E11.9 Type 2 diabetes mellitus without complications; I10 Essential (primary) hypertension; I69.351 Hemiplegia and hemiparesis following cerebral infarction affecting right dominant side; E66.9 Obesity, unspecified; Z68.33 Body mass index [BMI] 33.0-33.9, adult; Z79.4 Long term (current) use of insulin; Z79.899 Other long term (current) drug therapy; Z87.891 Personal history of nicotine dependence; Y93.9 Activity, unspecified; Y92.9 Unspecified place or not applicable; Y99.9 Unspecified external cause status
CPT/HCPCS: 36415; 73110; 73130; 80048; 80076; 82010; 82803; 83735; 85025; 93005; 99284

== ENCOUNTER 2023-07-31 15:59 | Inpatient (IN) | payer MEDICAID, SELFPAY ==
--- NOTE | ~2023-07-31 | CT_ITS ---
EXAMINATION: CT HEAD WITHOUT CONTRAST CLINICAL INFORMATION: New right leg heaviness. Prior cerebrovascular accident. COMPARISON: CT head from 05/25/2022. TECHNIQUE: Contiguous axial imaging was performed from the skull base to vertex without intravenous administration of contrast. This CT examination was performed using dose optimization techniques as appropriate, variously including the following: *Automated exposure control. *Adjustment of mA and/or kV according to patient size (this includes techniques or standardized protocols for targeted exams where dose is matched to indication/reason for exam; i.e. extremities or head). *Use of iterative reconstruction technique. DLP: 691 mGy-cm FINDINGS: There is chronic encephalomalacia within the left parasagittal frontoparietal lobes with associated volume loss. No additional loss of robles-white matter differentiation. No evidence of acute intracranial hemorrhage. There is no abnormal attenuation within the brain parenchyma. Ex vacuo dilatation of the left lateral ventricle. Otherwise, the ventricles are normal in morphology and size. No evidence for obstructive hydrocephalus. No abnormal mass effect or midline shift. No extra-axial fluid collections. No acute soft tissue or osseous abnormalities. Mild mucosal thickening of the paranasal sinuses. Mild leftward nasal septal deviation. The mastoid air cells and middle ear cavities are clear. CT/CT head for stroke IMPRESSION: 1. No evidence of acute intracranial hemorrhage or edematous territorial infarction. 2. Chronic encephalomalacia of the left parasagittal frontoparietal lobes. This critical result was discussed with Micki Flores MD at 16:25 on 07/31/2023 and it was ascertained that the content and urgency of the report was understood at the time of direct communication.
--- NOTE | ~2023-07-31 | CT_ITS ---
EXAMINATION: CTA OF THE HEAD AND NECK CLINICAL INFORMATION: Right leg heaviness. COMPARISON: Head CT from 07/31/2023. TECHNIQUE: Test bolus sequences followed by intravenous administration 70 mL of Omnipaque 350. Helical imaging was performed in the axial plane from the mediastinum to the skull vertex. Delayed postcontrast imaging of the head was also performed. The data was processed at the lead cytogenetic technologist's workstation for generation of MIP sequences. Three-dimensional volume rendered reformatted images were also generated at an offline 3-D workstation. Stenoses are assessed in accordance with NASCET criteria unless otherwise indicated. This CT examination was performed using dose optimization techniques as appropriate, variously including the following: *Automated exposure control *Adjustment of mA and/or kV according to patient size (this includes techniques or standardized protocols for targeted exams where dose is matched to indication/reason for exam; i.e. extremities or head) *Use of iterative reconstruction technique DLP: 1504 mGy-cm. FINDINGS: CTA neck: The imaged aortic arch and origins of the great vessels are normal. The common carotid arteries are widely patent. The carotid bifurcations are normal. The cervical internal carotid arteries are normal. The vertebral arteries opacify normally and are of normal caliber; the left vertebral artery is developmentally hypoplastic. The soft tissues of the neck are unremarkable. Multilevel cervical spondylosis noted with ossification of the posterior longitudinal ligament mildly impressing upon the ventral thecal sac. Mild mosaic attenuation in the lungs which may be due to an underlying small airways disease process. No focal consolidation visible. CTA head: The intradural vertebral arteries and basilar artery are normal. The posterior cerebral arteries are widely patent. The internal carotid arteries are of normal caliber. The ANNA and MCA vascular complexes bilaterally are normal. Chronic encephalomalacia in the parasagittal left frontoparietal lobes at the vertex again noted. The venous sinuses opacify normally. CT/CT angio head neck stroke IMPRESSION: No hemodynamically significant stenosis or occlusion in the cervical or intracranial vasculature which are fairly normal in appearance. Multilevel cervical spondylosis with ossification of the posterior longitudinal ligament mildly impressing upon the ventral thecal sac. Findings were preliminarily reported by Dr. Marcelino to Dr. Flores at 4:25 PM on 07/31/2023.
--- NOTE | ~2023-07-31 | MR_ITS ---
EXAMINATION: MR head/brain wo con COMPARISON: Same day CTA head and neck MR/MR head/brain wo con FINDINGS/IMPRESSION: The ordered MRI examination could not be completed due to claustrophobia. Only axial diffusion and sagittal T1-weighted images were obtained. No reduced diffusion is observed to suggest acute ischemia. Encephalomalacia involving the medial left parietal lobe. No mass effect or midline shift. There is some ex vacuo dilatation of the left lateral ventricle. No evidence of hydrocephalus. There is thinning of the posterior body of the corpus callosum. Midline structures otherwise appear normal. Grossly normal marrow signal.
--- NOTE | 2023-07-31 16:06 | ECG_ITS ---
Test Reason : STROKE Blood Pressure : / mmHG Vent. Rate : 077 BPM Atrial Rate : 077 BPM P-R Int : 170 ms QRS Dur : 086 ms QT Int : 382 ms P-R-T Axes : 048 015 023 degrees QTc Int : 432 ms Normal sinus rhythm Normal ECG When compared with ECG of 21-MAY-2023 16:45, No significant change was found Referred By: Micki Flores Electronically Signed By:NIGHAT COLEMAN MD
--- NOTE | 2023-07-31 16:07 | ED_ITS ---
HPI - Neuro Symptoms/Deficit General Chief Complaint: Stroke Stated Complaint: stroke alert,r-sided weakness,can't walk Time Seen by Provider: 07/31/23 16:06 Source: patient and EMS Mode of arrival: EMS History of Present Illness HPI Narrative: 47F hx stroke with right sided deficits [id number]. Patient states that she has not been feeling well since last night, got up and made breakfast this morning, then laid back down in got up at 12:40 but she was unable to go to the bathroom because she could not lift her right lower extremity. She states that it felt heavy. Related Data Home Medications Medication Instructions Recorded Confirmed blood sugar diagnostic (FreeStyle #10 ea 11/01/21 04/17/22 Lite Strips) blood-glucose meter (FreeStyle #1 ea 11/01/21 04/17/22 [place] Lite kit) clonidine HCl 0.2 mg tablet 0.2 mg PO BID 11/01/21 04/17/22 doxazosin 1 mg tablet 2 mg PO DAILY 11/01/21 04/17/22 dulaglutide 1.5 mg/0.5 mL 1.5 mg subcut TH@0900 11/01/21 04/17/22 subcutaneous [facility] duloxetine 30 mg capsule,delayed 30 mg PO DAILY 11/01/21 04/17/22 release fluticasone propionate 110 2 puff PO BID 11/01/21 04/17/22 mcg/actuation HFA aerosol inhaler (Flovent HFA) folic acid 1 mg tablet 1 mg PO DAILY 11/01/21 04/17/22 gabapentin 600 mg tablet 1,200 mg PO TID 11/01/21 04/17/22 levetiracetam 1,000 mg tablet 1,000 mg PO BID 11/01/21 04/17/22 lisinopril 40 mg tablet 40 mg PO DAILY 11/01/21 04/17/22 magnesium oxide 400 mg (241.3 mg 400 mg PO BID 11/01/21 04/17/22 magnesium) tablet melatonin 5 mg tablet 5 mg PO BEDTIME 11/01/21 04/17/22 metformin 1,000 mg tablet 1,000 mg PO BIDWM 11/01/21 04/17/22 omeprazole 20 mg capsule,delayed 20 mg PO DAILY@0630 11/01/21 04/17/22 release pen needle, diabetic 31 gauge x #50 ea 11/01/21 04/17/22 3/16 (Sure Comfort Pen Needle) ropinirole 0.5 mg tablet 0.5 mg PO BEDTIME 11/01/21 04/17/22 thiamine HCl (vitamin B1) 100 mg 100 mg PO DAILY 11/01/21 04/17/22 tablet cyclobenzaprine 10 mg tablet 1 tab PO TID PRN muscle spasm 04/02/22 04/17/22 duloxetine 60 mg capsule,delayed 1 cap PO DAILY 04/02/22 04/17/22 release insulin lispro 100 unit/mL See Protocol subcut TIDAC 04/02/22 04/17/22 subcutaneous pen multivitamin 1 tab PO DAILY 04/02/22 04/17/22 Previous Rx's Medication Instructions Recorded oxycodone-acetaminophen 5 mg-325 1 tab PO Q4-6H PRN pain #20 tabs 04/09/22 mg tablet (Percocet) Allergies Allergy/AdvReac Type Severity Reaction Status Date / Time tomato [TOMATO] Allergy Unknown RASH Verified 07/31/23 16:20 Review of Systems 2 Review of Systems: Pertinent positives and negatives as stated in HPI [facility] Past Medical History Source: nursing notes reviewed Onset Date is defined in the Problem List Problems that require an onset date and time if occurred within 24 hrs of arrival to the ED Aortic Dissection and Rupture; Neurologic impairment; Cardiopulmonary Arrest; Endotracheal Intubation; Insertion or Replacement of Mechanical Circulatory Assist Device Medical History Transaminitis Cholecystitis, acute with cholelithiasis UTI (urinary tract infection) Asthma Restless leg syndrome Stroke GERD (gastroesophageal reflux disease) Anxiety Depression Insomnia Neuropathy Seizure Hypertension Insulin dependent type 2 diabetes mellitus Morbid obesity Hx of completed stroke Surgical History History of laparoscopic cholecystectomy (04/05/22) History of Family History Family History Mother Diabetes Father Diabetes Alcoholism Social History Social History Household Members: None Housing: Apartment Do you presently have visiting nurse or other home services: Yes (publication manager, vna) Alcohol intake: never Patient Tobacco Use Status: Former Tobacco user Quit Date: 3 yrs ago Smoked in Last 30 Days: No Use of substances other than those prescribed or required for medical reasons: No Substance Use Type: Crack/Cocaine Advance Directives: Yes Advance Directives on File: Yes Advance Directives Date on File: 04/02/22 Patient : No service: No Current occupational status: unemployed Physical Exam 2 Vital Signs: Vital Signs: Last Vital Signs Temp 97.8 F 07/31/23 16:25 Pulse 81 07/31/23 16:25 Resp 16 07/31/23 16:25 BP 145/70 H 07/31/23 16:25 Pulse Ox 100 07/31/23 16:25 O2 Del Method Room Air 07/31/23 16:25 BMI result Body Mass Index 35.2 VITAL SIGNS: Reviewed. GENERAL: Well developed, well nourished, in no acute distress. HEAD: Normocephalic/atraumatic EYES: PERRLA, EOMI EARS: Ext canals without abnormality NOSE: Nares patent bilateral OROPHARYNX: no oral lesions noted, posterior pharynx clear NECK: Supple, no adenopathy LUNGS: Normal breath sounds. No adventitious sounds or accessory muscle use. SpO2<> CARDIOVASCULAR: Regular rate and rhythm without noted murmurs ABDOMEN: Soft, non-tender, non-distended with bowel sounds. MUSCULOSKELETAL: No tenderness, deformities, or effusions noted on gross inspection. EXTREMITIES: No cyanosis, clubbing or edema. SKIN: Inspection of the skin reveals no rashes NEUROLOGIC: Alert and oriented x 4. Strength and sensation to light touch were grossly intact x 4. Medical Decision Making Medical Decision Making MDM Narrative: 47-year-old female with history of right-sided CVA, currently undergoing physical therapy and ambulates with a walker. Patient is noted to have mild droop at the right corner of the mouth, states that she is unable to lift her right lower extremity as high as usual and reports numbness to the bottom of her foot. Right upper extremity she states is normal and she denies any use blood thinners. Patient states that she has not been feeling well since last night. 1623: I called Neurology 1625: [facility] called to inform that there is a chronic region on the left, no acute hemorrhage and no new loss white/robles. 1627: No acute proximal occlusions to suggest or necessitate LVH. 1632: Re-evaluation at the bedside with Meka Lima, and patient now describing right facial heaviness, on further evaluation regarding the lack of sensation in the right lower extremity it appears that the distribution is at the medial aspect of the right foot to include the heel and otherwise patient reports sensation is intact elsewhere on her foot and lower leg. 1643: I discussed case with Neurology, Dr. Danielle, who recommends against TNK at this time due to the window of last known well, distribution of symptoms and lack of compelling imaging. Agrees with non stat MRI follow-up and admission. I reviewed all investigations and hematologic indices are negative for leukocytosis/left shift/anemia/thrombocytopenia. Coagulation studies are within normal limits. Chemistry indices do not demonstrate an SKYLA or electrolyte derangements, CPK is within normal limits in high sensitivity troponin is undetectable. Urinalysis although positive for leukocyte esterase would not be treated unless urine culture is positive for growth. Viral testing negative for COVID-19/influenza. CT scans as described above. No acute arrhythmias noted on EKG. Patient received aspirin. 1751: Inpatient hospitalist who accepts admission. Differential Diagnosis Differential Diagnoses: The differential diagnosis associated with the presentation includes Please see the discussion above Admission/Observation Consideration of admission/observation: Escalation of care including admission/observation considered Please see the discussion above Consult Healthcare Provider Management of the patient was discussed with: Hospitalist and Bottom Cager Please see the discussion above Lab Data MDM Lab Attestation statement: I reviewed the patient's lab results. Please see the discussion above 07/31/23 17:20 07/31/23 17:20 Labs: Lab Results 07/31/23 07/31/23 07/31/23 Range/Units 16:04 16:06 17:12 WBC (4.8-10.8) X10*3/uL RBC (4.20-5.50) X10*6/uL Hgb (12.0-16.0) g/dl Hct (37.0-47.0) % MCV (80.0-98.0) fL MCH (27.0-33.0) pg MCHC (31.0-35.0) g/dl RDW (11.0-16.0) % Plt Count (160-400) X10*3/uL MPV (9.4-12.3) fL Immature Gran % (Auto) (0.0-0.4) % Neut % (Auto) (45-73) % Lymph % (Auto) (20-40) % Nance % (Auto) (2-11) % Eos % (Auto) (0-4) % Baso % (Auto) (0-2) % Lymph # (Auto) (1.2-4.9) X10*3/uL Nance # (Auto) (0.1-1.2) X10*3/uL Eos # (Auto) (0.0-0.4) X10*3/uL Baso # (Auto) (0.0-0.2) X10*3/uL Abs Immat Gran (auto) (0.00-0.03) X10*3/uL Absolute Neuts (auto) (2.0-8.3) x10*3/uL Absolute Nucleated RBC (0.0-0.012) X10*3/uL Nucleated RBC % (auto) (0.0-0.2) /100WBC PT (11.1-13.3) SEC Whole Blood PT 12.3 (11.1-13.5) sec INR (0.9-1.1) Whole Blood INR 1.0 (0.9-1.1) APTT (26.0-36.4) SEC Sodium (135-145) mmol/L Potassium (3.3-5.1) mmol/L Chloride (96-108) mmol/L Carbon Dioxide (22-29) mmol/L Anion Gap (12-20) BUN (9-16) mg/dL Creatinine (0.5-1.4) mg/dL Estim Creat Clear Calc Estimated GFR POC Glucose 298 H 214 H (60-115) mg/dL Random Glucose (60-115) mg/dL Calcium (8.4-10.2) mg/dL Total Creatine Kinase (26-140) U/L Troponin I High Sens (<3.5-17.0) ng/L Urine Color Urine Appearance Urine pH (5.0-9.0) Ur Specific Clinton (1.005-1.025) Urine Protein (Neg-Trace) mg/dL Urine Glucose (UA) (Negative) mg/dL Urine Ketones (Negative) mg/dL Urine Blood (Negative) Urine Nitrite (Negative) Ur Leukocyte Esterase (Negative) COVID-19 (PETER) (Negative) COVID-19 Clin Com Influenza Type A (MICHELLE) (Negative) Influenza Type B (MICHELLE) (Negative) Influenza A & B Note 07/31/23 Range/Units 17:20 WBC 9.9 (4.8-10.8) X10*3/uL RBC 5.64 H (4.20-5.50) X10*6/uL Hgb 15.2 (12.0-16.0) g/dl Hct 44.5 (37.0-47.0) % MCV 78.9 L (80.0-98.0) fL MCH 27.0 (27.0-33.0) pg MCHC 34.2 (31.0-35.0) g/dl RDW 14.4 (11.0-16.0) % Plt Count 282 (160-400) X10*3/uL MPV 10.7 (9.4-12.3) fL Immature Gran % (Auto) 0.4 (0.0-0.4) % Neut % (Auto) 60.8 (45-73) % Lymph % (Auto) 29.8 (20-40) % Nance % (Auto) 6.0 (2-11) % Eos % (Auto) 2.3 (0-4) % Baso % (Auto) 0.7 (0-2) % Lymph # (Auto) 3.0 (1.2-4.9) X10*3/uL Nance # (Auto) 0.6 (0.1-1.2) X10*3/uL Eos # (Auto) 0.2 (0.0-0.4) X10*3/uL Baso # (Auto) 0.1 (0.0-0.2) X10*3/uL Abs Immat Gran (auto) 0.04 H (0.00-0.03) X10*3/uL Absolute Neuts (auto) 6.0 (2.0-8.3) x10*3/uL Absolute Nucleated RBC 0.000 (0.0-0.012) X10*3/uL Nucleated RBC % (auto) 0.0 (0.0-0.2) /100WBC PT 11.9 (11.1-13.3) SEC Whole Blood PT (11.1-13.5) sec INR 1.0 (0.9-1.1) Whole Blood INR (0.9-1.1) APTT 31.5 (26.0-36.4) SEC Sodium 139 (135-145) mmol/L Potassium 3.7 (3.3-5.1) mmol/L Chloride 106 (96-108) mmol/L Carbon Dioxide 22 (22-29) mmol/L Anion Gap 15 (12-20) BUN 8 L (9-16) mg/dL Creatinine 0.66 (0.5-1.4) mg/dL Estim Creat Clear Calc 118.9 Estimated GFR > 60 POC Glucose (60-115) mg/dL Random Glucose 222 H (60-115) mg/dL Calcium 8.8 (8.4-10.2) mg/dL Total Creatine Kinase 36 (26-140) U/L Troponin I High Sens < 2.7 (<3.5-17.0) ng/L Urine Color Yellow Urine Appearance Clear Urine pH 8.0 (5.0-9.0) Ur Specific [place] >= 1.030 H (1.005-1.025) Urine Protein Negative (Neg-Trace) mg/dL Urine Glucose (UA) 500 H (Negative) mg/dL Urine Ketones Negative (Negative) mg/dL Urine Blood Negative (Negative) Urine Nitrite Negative (Negative) Ur Leukocyte Esterase Moderate (2+) H (Negative) COVID-19 (PETER) Negative (Negative) COVID-19 Clin Com See Note Influenza Type A (MICHELLE) Negative (Negative) Influenza Type B (MICHELLE) Negative (Negative) Influenza A & B Note See Note Independent Interpretation I performed an independent interpretation of an: EKG Interpretation: Normal sinus rhythm, HR-77, no STEMI, MN/QRS/QTC is within normal limits. Radiology Impression Discussion of test interpretation with radiology: I have reviewed the radiologist's reading. Radiologist Impression: Please see the discussion above External Record Review External record reviewed: Outpatient record, Prior outpatient labs and Prior outpatient radiology Chronic Conditions Patient?s care impacted by: Diabetes and Hypertension NIH Stroke Scale Internal: Initial- Upon Arrival Level of Consciousness: Alert Level of Consciousness Questions: Answers both questions correctly Level of Consciousness Commands: Performs both tasks correctly Best Gaze: Normal Visual: No visual loss Facial Palsy: Minor paralyis Motor Arm (Right): No drift Motor Arm (Left): No drift Motor Leg (Right): Some effort against gravity Motor Leg (Left): No drift Limb Ataxia: Absent Sensory: Mild to moderate sensory loss Best Language: No aphasia Dysarthia: Normal Extinction and Inattention: No abnormality Score: 4 Critical Care Time Critical Care Time Critical Care Time: Yes Total Critical Care Time: 60 Attestation: I personally attest to this time spent taking care of the patient. Discharge Plan Discharge Clinical Impression: Neurological symptoms, Neuropathy Patient Disposition: Admitted As Inpatient
[2023-07-31 16:10] LABS: Prothrombin Time Whole Bld POC 12.3 sec (11.1-13.5)
[2023-07-31 16:11] LABS: Glucose, Whole Blood 298 mg/dL (60-115)
[2023-07-31 16:20] VITALS: BP 146/79; PULSE 88; O2SAT 97; BMI 35.2
[2023-07-31 16:25] VITALS: BP 145/70; PULSE 81; RESP 16; TEMP 36.6; O2SAT 100
--- NOTE | 2023-07-31 16:39 | PC.NURSE ---
Pt returned from CT - speaking w/ Dr. Flores and Steel Rule Inspector Angelina Lima RN at this time.
--- NOTE | 2023-07-31 16:55 | PC.NURSE ---
PT IN ED BED 9. PT AWAKE, ALERT AND ORIENTED X 3. ANSWERING QUESTIONS APPROPRIATELY. SKIN WARM AND DRY. RESP UNLABORED. DENIES N/V. NO C/O PAIN PRESENTLY. PT REPORTS THAT YESTERDAY SHE FELT UNWELL. STATES I FEEL LIKE I HAD THE FLU . STATES THAT SHE WENT TO BED AT 8PM. PT STATES THAT SHE GOT UP AT 4AM TO USE THE BATHROOM AND DENIES ANY NEURO SYMPTOMS AT THAT TIME. PT STATES SHE THEN WOKE UP AT 8AM AND MADE HERSELF BREAKFAST. AGAIN REPORTS NO SIGNIFICANT NEURO SYMPTOMS AT THAT TIME. PT WENT BACK TO BED AND WOKE AT 1240. AT THAT TIME SHE REPORTS THAT HER RIGHT LEG FELT HEAVY AND I DIDN'T FEEL WELL . PT DID NOT ARRIVE TO THE ED UNTIL AFTER 4PM. C/O RIGHT FACIAL HEAVINESS . PT STATES HER RIGHT LEG FEELS WEAKER AND SHE HAS DECREASED SENSATION TO RIGHT HEEL ONLY. PT MOVING RIGHT ARM WITHOUT DIFFICULTY. NO PALMAR DRIFT. BILATERAL HAND GRASP/EQUAL IN STRENGTH. NO GARBLED SPEECH NOTED. PT PASSED SWALLOW EVAL WITHOUT DIFFICULTY. PT WITH HX OF SEIZURES. REPORTS LAST SEIZURE WAS 2 MONTHS AGO. REPORTS THAT LAST EVENING SHE HAD A HEADACHE. DR DARNELL SPOKE WITH DR. CAAL VIA TELEPHONE AND IT WAS DECIDED BASED ON SYMPTOMS, IMAGING RESULTS, AND DELAYED ARRIVAL TO ED NOT TO ORDER TNK. PLAN IS FOR ADMISSION AND MRI. PT EDUCATED ON ALL OF THIS AND IS AGREEABLE TO PLAN.
[2023-07-31 17:26] LABS: MANUAL DIFF FLAG NO
[2023-07-31 17:26] LABS: Glucose, Whole Blood 214 mg/dL (60-115)
[2023-07-31 17:28] LABS: Basophils Absolute Auto 0.1 X10*3/uL (0.0-0.2); Basophils Percent Auto 0.7 % (0-2); Eosinophils Absolute Auto 0.2 X10*3/uL (0.0-0.4); Eosinophils Percent Auto 2.3 % (0-4); Hematocrit 44.5 % (37.0-47.0); Hemoglobin 15.2 g/dl (12.0-16.0); Imm Gran Abs Auto 0.04 X10*3/uL (0.00-0.03); Imm Gran Pct Auto 0.4 % (0.0-0.4); Lymphocytes Percent Auto 29.8 % (20-40); Mean Corpuscular HGB Conc 34.2 g/dl (31.0-35.0); Mean Corpuscular Volume 78.9 fL (80.0-98.0); Mean Platelet Volume 10.7 fL (9.4-12.3); Monocytes Absolute Auto 0.6 X10*3/uL (0.1-1.2); Neutrophils Percent Auto 60.8 % (45-73); Platelet Count 282 X10*3/uL (160-400); Red Blood Count 5.64 X10*6/uL (4.20-5.50); Red Cell Distribution Width 14.4 % (11.0-16.0); White Blood Count 9.9 X10*3/uL (4.8-10.8)
--- NOTE | 2023-07-31 17:29 | PC.NURSE ---
pt passed nursing swallow evaluation w/o difficulty. no deficits noted. urine/labs obtained and sent to lab by Axela. pt continues to rest in no apparent distress. pt states she is feeling since prior to arrival. pt aware of plan of care at this time. respirations remain even and unlabored. call wall placed within reach.
[2023-07-31 17:30] LABS: Appearance Urine Clear; Color Urine Yellow; Glucose Urine UA 500 mg/dL (Negative); Leukocyte Esterase Urine Moderate (2+) (Negative); Nitrite Urine Negative (Negative); Specific Gravity - Urine >= 1.030 (1.005-1.025); UMIC TRIGGER UACC YES; Urine Blood Negative (Negative); Urine Ketones Negative (Negative); Urine Protein Negative (Neg-Trace)
[2023-07-31 17:33] LABS: Prothrombin Time 11.9 SEC (11.1-13.3)
[2023-07-31 17:36] LABS: Partial Thromboplastin Time 31.5 SEC (26.0-36.4)
[2023-07-31 17:37] LABS: Stroke Lab Use COMPLETE
[2023-07-31 17:40] LABS: COVID-19 Test Negative (Negative); IDNOW Serial# 152EDE1D
[2023-07-31 17:42] LABS: Anion Gap 15 (12-20); Blood Urea Nitrogen 8 mg/dL (9-16); Calcium 8.8 mg/dL (8.4-10.2); Carbon Dioxide 22 mmol/L (22-29); Chloride 106 mmol/L (96-108); Creatinine Clr Calc Pharmacy 118.9; Estimated Glomerular Filt Rate > 60; Glucose Random 222 mg/dL (60-115); Potassium 3.7 mmol/L (3.3-5.1); Sodium 139 mmol/L (135-145)
[2023-07-31 17:49] LABS: IDNOW Serial# 08D9AD1C; Influenza A Negative (Negative); Influenza B2 Negative (Negative); Troponin-I High Sensitivity < 2.7 ng/L (<3.5-17.0)
[2023-07-31 17:53] LABS: Bacteria Urine None Seen (None Seen); Hyaline Casts Urine 0-2 /LPF (0-2); RBC Urine 0-2 /HPF (0-2); WBC Urine 0-5 /HPF (0-5)
--- NOTE | 2023-07-31 17:58 | P.HPHOSP_ITS ---
<Statement entered by Wesley Litlte MD - 08/02/23 13:09> the patient was seen and evaluated with MADDISON Rodriguez. I agree with his note, assessment and plan with the following. In summary, A 47 years old lady with PMH of CVA w Right sided weakness, seizures, HTN, DM2, depression among other who presents to ED with right sided numbness and tingling. Right-sided numbness and tingling CT of head and CTA of head/neck negative for acute intracranial pathology get MRI of head/brain Neurology consult aspirin 81 mg daily and atorvastatin 40 mg at bedtime Lipid profile Rest of evaluations by MADDISON note. History of Present Illness Date of Service: 07/31/23 Attending physician on admission: Wesley Little Chief Complaint: Right-sided weakness, difficulty walking Pt is a 47-year-old female with a PMH significant for?CVA in 2019, seizure disorder, HTN, insulin-dependent diabetes type 2, GERD, and depression who presents to the ED for evaluation of right-sided numbness and tingling since this morning. Patient states yesterday she felt she was getting sick since her body, particuarly the right side, was feeling heavy . She assumed she was catching the flu from her kids who were also sick. Pt went to bed last night and woke this morning at 04:00. She still felt off, but was able to go to the bathroom without incident. Woke next at 08:00 and was able to make breakfast and eat. Again was feeling off so lay down and woke up again at noon when she found that she could neither feel nor move her right leg. States her whole right side felt ?heavy? and she numbness and tingling from her right hip to the bottom of her foot, worse distally. Also reports having some upper right extremity weakness, which has since resolved. Endorses headache since last night, though denies acute vision changes. Denies confusion, dysarthria, difficulty word finding, dysphagia. Patient notes she had a stroke in October 2018 with very different symptoms: States she was just walking and then fell down and blacked out, and when she awoke she was already in the hospital being treated. Had residual right-sided weakness and was in a long-term care facility for 2 and half years receiving treatment. Patient continues to have right-sided deficits, and uses a walker at baseline for ambulation. No fever, nausea, vomiting, abdominal pain. Denies chest pain/pressure, palpitations. No SOB. In the ED pt was slightly hypertensive at 145/70, otherwise vitals WNL. Labs were significant for elevated POC at 298, otherwise grossly unremarkable. No electrolyte abnormalities. No leukocytosis. Stable H&H. UA positive for moderate leukocyte esterase, but negative for nitrites, wbc's, and bacteria, likely negative for UTI. Tested negative for COVID and flu. Tox screen pending. CT?of head found no evidence for acute intracranial hemorrhage or edematous territorial infarction, but did show chronic encephalomalacia of the right parasagittal frontoparietal lobes. CTA of head and neck found no hemodynamically significant stenosis or occlusion in the cervical or intracranial vasculature, but did show multilevel cervical spondylolysis with ossification. EKG demonstrated normal sinus rhythm without evidence of significant ST elevations or depressions. Pt was treated with aspirin. ED contacted Neurology who recommended against TNK since outside of therapeutic window with last known well time, and suggested non emergent MRI head/brain and admission for further workup. Pt will be admitted to the hospital under observation for further evaluation of possible TIA versus stroke. Review of Systems 2 Review of Systems: Right-sided numbness, tingling, ?heaviness?, weakness, especially in lower extremity Headache since last night Denies dysarthria, confusion, difficulty word finding, dysphagia No acute changes to vision No loss of consciousness Denies chest pain/pressure, palpitations No SOB Denies fever, chills, nausea, vomiting, abdominal pain PMFSH Medical History Transaminitis Cholecystitis, acute with cholelithiasis UTI (urinary tract infection) Asthma Restless leg syndrome Stroke GERD (gastroesophageal reflux disease) Anxiety Depression Insomnia Neuropathy Seizure Hypertension Insulin dependent type 2 diabetes mellitus Morbid obesity Hx of completed stroke Family History Mother Diabetes Father Diabetes Alcoholism Surgical History History of laparoscopic cholecystectomy (04/05/22) History of Social History Household Members: None Housing: Apartment Do you presently have visiting nurse or other home services: Yes (reconsignment clerk, [facility]) Alcohol intake: never Patient Tobacco Use Status: Former Tobacco user Quit Date: 3 yrs ago Smoked in Last 30 Days: No Use of substances other than those prescribed or required for medical reasons: No Substance Use Type: Crack/Cocaine Advance Directives: Yes Advance Directives on File: Yes Advance Directives Date on File: 04/02/22 Patient : No service: No Current occupational status: unemployed Meds Allergies Allergy/AdvReac Type Severity Reaction Status Date / Time tomato [TOMATO] Allergy Unknown RASH Verified 07/31/23 16:20 Home Medications Medication Instructions Recorded Confirmed Last Taken Type blood sugar diagnostic (FreeStyle #10 ea 11/01/21 04/17/22 Unknown History Lite Strips) blood-glucose meter (FreeStyle #1 ea 11/01/21 04/17/22 Unknown History Leland Lite kit) clonidine HCl 0.2 mg tablet 0.2 mg PO BID 11/01/21 07/31/23 07/31/22 History doxazosin 1 mg tablet 1 mg PO DAILY 11/01/21 07/31/23 07/31/22 History dulaglutide 1.5 mg/0.5 mL 1.5 mg subcut WE@0900 11/01/21 07/31/23 07/31/23 History subcutaneous pen injector (Trulicity) duloxetine 30 mg capsule,delayed 30 mg PO DAILY 11/01/21 07/31/23 07/31/22 History release folic acid 1 mg tablet 1 mg PO DAILY 11/01/21 07/31/23 07/31/22 History levetiracetam 1,000 mg tablet 1,000 mg PO BID 11/01/21 07/31/23 07/31/22 History lisinopril 40 mg tablet 40 mg PO DAILY 11/01/21 07/31/23 07/31/22 History magnesium oxide 400 mg (241.3 mg 400 mg PO BID 11/01/21 07/31/23 07/31/22 History magnesium) tablet metformin 1,000 mg tablet 1,000 mg PO BIDWM 11/01/21 07/31/23 07/31/22 History omeprazole 20 mg capsule,delayed 20 mg PO DAILY@0630 0407/31/23 07/31/22 History release pen needle, diabetic 31 gauge x #50 ea 11/01/21 04/17/22 Unknown History 10/04 (Sure Comfort Pen Needle) thiamine HCl (vitamin B1) 100 mg 100 mg PO DAILY 11/01/21 07/31/23 07/31/22 History tablet cyclobenzaprine 10 mg tablet 1 tab PO TID PRN muscle spasm 04/02/22 07/31/23 04/01/22 History insulin lispro 100 unit/mL See Protocol subcut TIDAC 04/02/22 07/31/23 07/31/22 History subcutaneous pen multivitamin 1 tab PO DAILY 04/02/22 07/31/23 07/31/22 History albuterol sulfate 90 mcg/actuation 2 puff inhalation Q6H PRN wheezing 07/31/23 07/31/23 Unknown History aerosol inhaler (Ventolin HFA) doxepin 10 mg capsule 10 mg PO BEDTIME 07/31/23 07/31/23 07/30/22 History escitalopram oxalate 10 mg tablet 15 mg PO QAM 07/31/23 07/31/23 07/31/22 History hydroxyzine HCl 25 mg tablet 25 mg PO BID PRN Anxiety 07/31/23 07/31/23 07/31/22 History insulin glargine 100 unit/mL (3 10 unit subcut BID 07/31/23 07/31/23 07/31/22 History mL) subcutaneous pen mirtazapine 7.5 mg tablet 7.5 mg PO BEDTIME 07/31/23 07/31/23 07/30/22 History pregabalin 50 mg capsule 50 mg PO TID 07/31/23 07/31/23 07/31/22 History Physical Exam 2 Vital Signs and Narrative: Vital Signs: Last Vital Signs Temp 97.8 F 07/31/23 16:25 Pulse 81 07/31/23 16:25 Resp 16 07/31/23 16:25 BP 145/70 H 07/31/23 16:25 Pulse Ox 100 07/31/23 16:25 O2 Del Method Room Air 07/31/23 16:25 BMI result Body Mass Index 35.2 Constitutional: Alert, in no acute distress. Mental Status: Oriented to person, place and time. Eyes: Pupils are equal, round, and reactive to light. Ear, Nose, and Throat: Oropharynx clear, mucous membranes moist. Ears and nose without deformities. Trachea midline. Respiratory: Clear to auscultation bilaterally. No wheezing, rales, or rhonchi. Cardiovascular: S1, S2 regular. No murmurs, rubs, or gallops. Gastrointestinal: Abdomen soft, non-tender, non-distended. Normal bowel sounds. Neurologic: Cranial nerves II-XII are grossly intact bilaterally. 2/5 right lower extremity weakness, 4/5 upper extremity weakness. Reduced sensation to light touch of right face, upper and lower extremity Skin: Warm, dry. Musculoskeletal: No cyanosis or clubbing. Extremities: No edema. Psychiatric: Normal mood and affect. Results Labs 07/31/23 17:20 07/31/23 17:20 Labs: Laboratory Results - last 24 hr 07/31/23 07/31/23 07/31/23 16:04 16:06 17:12 MCV MCH MCHC RDW Plt Count MPV Immature Gran % (Auto) Neut % (Auto) Lymph % (Auto) [place] % (Auto) Eos % (Auto) Baso % (Auto) Lymph # (Auto) [place] # (Auto) Eos # (Auto) Baso # (Auto) Abs Immat Gran (auto) Absolute Neuts (auto) Absolute Nucleated RBC Nucleated RBC % (auto) PT Whole Blood PT 12.3 INR Whole Blood INR 1.0 APTT Anion Gap Estim Creat Clear Calc Estimated GFR POC Glucose 298 H 214 H Random Glucose Calcium Total Creatine Kinase Urine Color Urine Appearance Urine pH Ur Specific [place] Urine Protein Urine Glucose (UA) Urine Ketones Urine Blood Urine Nitrite Ur Leukocyte Esterase Urine RBC Urine WBC Ur Squamous Epith Cells Urine Bacteria Hyaline Casts COVID-19 (PETER) COVID-19 Clin Com Influenza Type A (MICHELLE) Influenza Type B (MICHELLE) Influenza A & B Note 07/31/23 17:20 MCV 78.9 L MCH 27.0 MCHC 34.2 RDW 14.4 Plt Count 282 MPV 10.7 Immature Gran % (Auto) 0.4 Neut % (Auto) 60.8 Lymph % (Auto) 29.8 [place] % (Auto) 6.0 Eos % (Auto) 2.3 Baso % (Auto) 0.7 Lymph # (Auto) 3.0 [place] # (Auto) 0.6 Eos # (Auto) 0.2 Baso # (Auto) 0.1 Abs Immat Gran (auto) 0.04 H Absolute Neuts (auto) 6.0 Absolute Nucleated RBC 0.000 Nucleated RBC % (auto) 0.0 PT 11.9 Whole Blood PT INR 1.0 Whole Blood INR APTT 31.5 Anion Gap 15 Estim Creat Clear Calc 118.9 Estimated GFR > 60 POC Glucose Random Glucose 222 H Calcium 8.8 Total Creatine Kinase 36 Urine Color Yellow Urine Appearance Clear Urine pH 8.0 Ur Specific [place] >= 1.030 H Urine Protein Negative Urine Glucose (UA) 500 H Urine Ketones Negative Urine Blood Negative Urine Nitrite Negative Ur Leukocyte Esterase Moderate (2+) H Urine RBC 0-2 Urine WBC 0-5 Ur Squamous Epith Cells 3-5 Urine Bacteria None Seen Hyaline Casts 0-2 COVID-19 (PETER) Negative COVID-19 Clin Com See Note Influenza Type A (MICHELLE) Negative Influenza Type B (MICHELLE) Negative Influenza A & B Note See Note Imaging Radiologist's Impressions: Impressions Head CT 07/31/23 16:14 IMPRESSION: 1. No evidence of acute intracranial hemorrhage or edematous territorial infarction. 2. Chronic encephalomalacia of the left parasagittal frontoparietal lobes. This critical result was discussed with Micki Flores MD at 16:25 on 07/31/2023 and it was ascertained that the content and urgency of the report was understood at the time of direct communication. Head/Neck CTA 07/31/23 16:37 IMPRESSION: No hemodynamically significant stenosis or occlusion in the cervical or intracranial vasculature which are fairly normal in appearance. Multilevel cervical spondylosis with ossification of the posterior longitudinal ligament mildly impressing upon the ventral thecal sac. Findings were preliminarily reported by Dr. Marcelino to Dr. Flores at 4:25 PM on 07/31/2023. Assessment and Plan (1) Lower extremity weakness: Qualifiers: Laterality: right Qualified Code(s): R29.898 - Other symptoms and signs involving the musculoskeletal system Status: Acute Plan Pt is a 47-year-old female with a PMH significant for?CVA in 2019, seizure disorder, HTN, insulin-dependent diabetes type 2, GERD, and depression who presents to the ED for evaluation of right-sided numbness and tingling since this morning. Pt will be admitted to the hospital under observation for further evaluation of possible TIA versus stroke. Right-sided deficits Pt with right-sided numbness, tingling, weakness, especially in lower leg CT of head and CTA of head/neck negative for acute intracranial pathology Patient given aspirin in the ED Will get MRI of head/brain Pt with hx of CVA not currently on aspirin or statin, will start on aspirin 81 mg daily and atorvastatin 40 mg at bedtime Lipid profile PT/OT evaluation Neurology consult Monitor on telemetry HTN Will hold clonidine Continue doxazosin, lisinopril Seizure disorder Continue Keppra Insulin-dependent diabetes type 2 Hold metformin, Trulicity Will place on sliding scale insulin, Lantus Diabetic diet COPD Not in acute exacerbation Continue home inhalers Depression Continue home meds Full Code Attending:?Dr. Little DVT Prophylaxis: Lovenox Patient be admitted to the hospital under observation for further evaluation of possible TIA versus stroke. Patient will require additional imaging including MRI, and specialist consultation. Quality Stroke Does the patient have a stroke diagnosis?: No Reason for No Anti-thrombotic by Day Two: Contraindicated (Last known well time outside of therapeutic window of TnK) VTE Prior VTE?: No VTE Risk Level:: Medical - moderate - high VTE Device Contraindication: Treatment Not Indicated VTE Drug Contraindication: N/A - Med Ordered
[2023-07-31 18:04] VITALS: BP 158/69; PULSE 78; RESP 16; O2SAT 96
[2023-07-31] MEDS: Aspirin 81 MG TAB.CHEW 162 MG PO (18:04)
--- NOTE | 2023-07-31 18:05 | PC.NURSE ---
vss and up to date. pt remains nsr on the legal process specialist. pt medicated per provider order. neuros remain intact. respirations remain even and unlabored. call wall placed within reach.
[2023-07-31 18:15] LABS: Amphetamine Screen Urine Not Detected (Not Detect); Barbiturates, Urine Not Detected (Not Detect); Benzodiazepines Screen Urine Not Detected (Not Detect); Cannabinoid Screen Urine POSITIVE (Not Detect); Cocaine Screen Urine Not Detected (Not Detect); Fentanyl, urine Not Detected (Not Detect); Opiate Screen Urine Not Detected (Not Detect); Phencyclidine Screen Urine Not Detected (Not Detect)
--- NOTE | 2023-07-31 18:16 | PC.NURSE ---
pt speaking w/ hospitalist at this time.
--- NOTE | 2023-07-31 18:26 | PHA.MEDREC ---
Pharmacy Consult ? Medication Reconciliation Pharmacy has completed the medication reconciliation. Patient was able to report some medications. Patient reported 2 insulins - a blue and diego one. Report 4-6 units before meals and 10 unit BID. Called pharmacy to confirm insulin, [facility] reported patient has Semglee that was never picked up and Humalog. Patient then confirmed the rest of the medications. Reports not using a maintenance inhaler. Zabrina Martinez, YinD
[2023-07-31 20:31] LABS: Glucose, Whole Blood 223 mg/dL (60-115)
[2023-07-31] MEDS: Atorvastatin Calcium 40 MG TABLET PO (20:39)
[2023-07-31] MEDS: Enoxaparin Sodium 40 MG/0.4 ML SYRINGE SUBCUT (20:39)
[2023-07-31] MEDS: cloNIDine HCL 0.2 MG TABLET PO (20:39)
[2023-07-31] MEDS: Magnesium Oxide 400 MG TABLET PO (20:40)
[2023-07-31] MEDS: Pregabalin 50 MG CAPSULE PO (20:40)
[2023-07-31] MEDS: levETIRAcetam 1,000 MG TABLET 1000 MG PO (20:40)
[2023-07-31] MEDS: Insulin Lispro 100 UNIT/ML 3 ML VIAL SUBCUT (20:40)
[2023-07-31] MEDS: Mirtazapine 7.5 MG TABLET PO (20:40)
[2023-07-31] MEDS: Insulin Glargine,Hum.rec.anlog 100 UNIT/ML 10 ML VIAL 7 UNIT SUBCUT (20:40)
[2023-07-31] MEDS: LORazepam 2 MG/ML VIAL 0.5 MG IVPUSH (20:40)
[2023-07-31 20:46] VITALS: BP 125/63; PULSE 91; RESP 20; O2SAT 97
--- NOTE | 2023-07-31 20:49 | PC.NURSE ---
2020 mri form completed with pt and sent to mri. pt reports anxiety/panic attacks with mri; Dr. newman notified. pt medicated with 2100 meds/ativan; to mri now. vss. nsr on monitor. pt axox4 neuros intact speaking full clear sentences.
[2023-07-31] MEDS: Doxepin HCl 10 MG CAPSULE PO (21:46)
[2023-07-31 21:51] VITALS: BP 121/66; PULSE 91; RESP 18; TEMP 36.2; O2SAT 99
[2023-07-31 21:59] LABS: Glucose, Whole Blood 312 mg/dL (60-115)
[2023-07-31] MEDS: Insulin Lispro 100 UNIT/ML 3 ML VIAL 7 UNIT SUBCUT (22:36)
[2023-07-31] MEDS: 0.9 % Sodium Chloride Flush 3 ML SYRINGE IVFLUSH (22:36)
[2023-08-01] MEDS: Acetaminophen 325 MG TABLET 650 MG PO (03:23)
[2023-08-01] MEDS: Cyclobenzaprine HCl 10 MG TABLET PO (03:23)
[2023-08-01 03:34] VITALS: BP 116/56; PULSE 77; RESP 17; O2SAT 96
[2023-08-01] MEDS: Omeprazole 20 MG CAPSULE.DR PO (06:09)
[2023-08-01 07:39] VITALS: BP 116/74; PULSE 71; RESP 18; TEMP 36.4; O2SAT 98
[2023-08-01 07:39] LABS: Alanine Aminotransferase 34 U/L (0-31); Albumin Level 3.4 g/dL (3.5-5.0); Alkaline Phosphatase 84 U/L (39-117); Anion Gap 12 (12-20); Aspartate Amino Transferase 40 U/L (5-31); Bilirubin Total 0.4 mg/dL (0.0-1.0); Blood Urea Nitrogen 14 mg/dL (9-16); Calcium 8.5 mg/dL (8.4-10.2); Carbon Dioxide 27 mmol/L (22-29); Chloride 104 mmol/L (96-108); Cholesterol 153 mg/dL (<200); Creatinine Clr Calc Pharmacy 103.3; Estimated Glomerular Filt Rate > 60; Glucose Random 274 mg/dL (60-115); HDL Cholesterol 40 mg/dL (>40); LDL Cholesterol Calculated 83 mg/dL (<100); Magnesium 1.6 mg/dL (1.6-2.6); Potassium 3.5 mmol/L (3.3-5.1); Sodium 139 mmol/L (135-145); Total Protein 6.6 g/dL (6.5-8.0); Triglycerides 150 mg/dL (<150)
[2023-08-01 07:40] LABS: Glucose, Whole Blood 260 mg/dL (60-115)
[2023-08-01 07:55] VITALS: BP 116/74; PULSE 71; O2SAT 98
[2023-08-01] MEDS: Escitalopram Oxalate 5 MG TABLET 15 MG PO (07:58)
[2023-08-01] MEDS: DULoxetine HCl 30 MG CAPSULE.DR PO (07:58)
[2023-08-01] MEDS: Thiamine HCL 100 MG TABLET PO (07:58)
[2023-08-01] MEDS: Pregabalin 50 MG CAPSULE PO ×2 (07:58→16:33)
[2023-08-01] MEDS: 0.9 % Sodium Chloride Flush 3 ML SYRINGE IVFLUSH (07:58)
[2023-08-01] MEDS: Insulin Glargine,Hum.rec.anlog 100 UNIT/ML 10 ML VIAL 7 UNIT SUBCUT (07:58)
[2023-08-01] MEDS: Insulin Lispro 100 UNIT/ML 3 ML VIAL SUBCUT ×3 (07:58→16:33)
[2023-08-01] MEDS: cloNIDine HCL 0.2 MG TABLET PO (07:59)
[2023-08-01] MEDS: Folic Acid 1 MG TABLET PO (07:59)
[2023-08-01] MEDS: levETIRAcetam 1,000 MG TABLET 1000 MG PO (07:59)
[2023-08-01] MEDS: Magnesium Oxide 400 MG TABLET PO (07:59)
[2023-08-01] MEDS: Doxazosin Mesylate 1 MG TABLET PO (07:59)
[2023-08-01] MEDS: Aspirin 81 MG TAB.CHEW PO (07:59)
[2023-08-01] MEDS: Multivitamin TABLET 1 TAB PO (07:59)
[2023-08-01] MEDS: lisinopriL 40 MG TABLET PO (08:04)
[2023-08-01] MEDS: metFORMIN HCl 1,000 MG TABLET 1000 MG PO ×2 (09:31→16:33)
[2023-08-01 11:21] VITALS: BP 117/57; PULSE 73; RESP 17; TEMP 36.5; O2SAT 96
[2023-08-01 11:23] LABS: Glucose, Whole Blood 338 mg/dL (60-115)
--- NOTE | 2023-08-01 11:51 | PM.NEUROCN ---
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 She said that for few days before coming to hospital she was not feeling well and was having cold or flu-like illness. At 1 point she took a medial and went to bed. Later she noted that she could not move her legs specially her right leg, which was already weak. She came to emergency room and was evaluated for possible and other stroke. After discussing with emergency room physician my impression was that this was a questionable case and stroke was difficult to confirm and dizzy and was made to not treat the patient with intravenous tPA and admitted for further evaluation. He had an MRI of brain done that did not reveal any acute lesion. Review of Systems Review of Systems: Recent cold or flu-like illness PMFSH Past Medical History Medical History Transaminitis Cholecystitis, acute with cholelithiasis UTI (urinary tract infection) Asthma Restless leg syndrome Stroke GERD (gastroesophageal reflux disease) Anxiety Depression Insomnia Neuropathy Seizure Hypertension Insulin dependent type 2 diabetes mellitus Morbid obesity Hx of completed stroke Family History Family History Mother Diabetes Father Diabetes Alcoholism Surgical History Surgical History History of laparoscopic cholecystectomy (04/05/22) History of Social History Social History Household Members: None Housing: Apartment Do you presently have visiting nurse or other home services: Yes (oncology specialist, vna) Alcohol intake: never Patient Tobacco Use Status: Former Tobacco user Quit Date: 3 yrs ago Smoked in Last 30 Days: No Use of substances other than those prescribed or required for medical reasons: No Substance Use Type: Crack/Cocaine Currently Displaying Signs/Symptoms of Drug Intoxication Withdrawal: No Advance Directives: Yes Advance Directives on File: Yes Advance Directives Date on File: 04/02/22 Patient : No service: No Current occupational status: unemployed Meds Allergies Allergy/AdvReac Type Severity Reaction Status Date / Time tomato [TOMATO] Allergy Unknown RASH Verified 07/31/23 16:20 Active Medications: Current Medications Acetaminophen (Acetaminophen 325 Mg Tablet) 650 mg PO Q6H PRN PRN Reason: Pain, Mild (Pain Scale 1-3) Last Admin: 08/01/23 03:23 Dose: 650 mg Albuterol Sulfate (Albuterol Sulfate 90 Mcg 8 Gm Inhaler) 2 puff INHALE Q6H PRN PRN Reason: wheezing Aspirin (Aspirin 81 Mg Tab.Chew) 81 mg PO DAILY [facility] Last Admin: 08/01/23 07:59 Dose: 81 mg Atorvastatin Calcium (Atorvastatin Calcium 40 Mg Tablet) 40 mg PO BEDTIME [facility] Last Admin: 07/31/23 20:39 Dose: 40 mg Benzonatate (Benzonatate 100 Mg Capsule) 100 mg PO TID PRN PRN Reason: Cough Clonidine HCl (Clonidine Hcl 0.2 Mg Tablet) 0.2 mg PO BID [facility]; Protocol Last Admin: 08/01/23 07:59 Dose: 0.2 mg Cyclobenzaprine HCl (Cyclobenzaprine Hcl 10 Mg Tablet) 10 mg PO TID PRN PRN Reason: muscle spasm Last Admin: 08/01/23 03:23 Dose: 10 mg Dextrose (Dextrose 50 % 25 Gm/50 Ml Syringe) 25 gm IVPUSH Q15M PRN; Protocol PRN Reason: per Hypoglycemia Standing Ord. Docusate Sodium (Docusate Sodium 100 Mg Capsule) 100 mg PO DAILY PRN PRN Reason: Constipation Doxazosin Mesylate (Doxazosin Mesylate 1 Mg Tablet) 1 mg PO DAILY [facility]; Protocol Last Admin: 08/01/23 07:59 Dose: 1 mg Doxepin HCl (Doxepin Hcl 10 Mg Capsule) 10 mg PO BEDTIME [facility] Last Admin: 07/31/23 21:46 Dose: 10 mg Duloxetine HCl (Duloxetine Hcl 30 Mg Capsule.Dr) 30 mg PO DAILY [facility] Last Admin: 08/01/23 07:58 Dose: 30 mg Enoxaparin Sodium (Enoxaparin Sodium 40 Mg/0.4 Ml Syringe) 40 mg SUBCUT Q24H [facility] Last Admin: 07/31/23 20:39 Dose: 40 mg Escitalopram Oxalate (Escitalopram Oxalate 5 Mg Tablet) 15 mg PO DAILY [facility] Last Admin: 08/01/23 07:58 Dose: 15 mg Folic Acid (Folic Acid 1 Mg Tablet) 1 mg PO DAILY [facility] Last Admin: 08/01/23 07:59 Dose: 1 mg Glucose (Glucose Gel 15 Gm Gel..Gram.) 15 gm PO Q15M PRN; Protocol PRN Reason: per Hypoglycemia Standing Ord. Hydroxyzine HCl (Hydroxyzine Hcl 25 Mg Tablet) 25 mg PO BID PRN PRN Reason: Anxiety Insulin Glargine (Insulin Glargine,Hum.Rec.Anlog 100 Unit/Ml 10 Ml Vial) 7 unit SUBCUT BID [facility] Last Admin: 08/01/23 07:58 Dose: 7 unit Insulin Human Lispro (Insulin Lispro 100 Unit/Ml 3 Ml Vial) 0 unit SUBCUT QIDACHS [facility]; Protocol Last Admin: 08/01/23 11:25 Dose: 8 unit Levetiracetam (Levetiracetam 1,000 Mg Tablet) 1,000 mg PO BID [facility] Last Admin: 08/01/23 07:59 Dose: 1,000 mg Lisinopril (Lisinopril 40 Mg Tablet) 40 mg PO DAILY [facility]; Protocol Last Admin: 08/01/23 08:04 Dose: 40 mg Magnesium Oxide (Magnesium Oxide 400 Mg Tablet) 400 mg PO BID [facility] Last Admin: 08/01/23 07:59 Dose: 400 mg Melatonin (Melatonin 3 Mg Tablet) 6 mg PO BEDTIME PRN PRN Reason: Insomnia Metformin HCl (Metformin Hcl 1,000 Mg Tablet) 1,000 mg PO BIDWM [facility] Last Admin: 08/01/23 09:31 Dose: 1,000 mg Mirtazapine (Mirtazapine 7.5 Mg Tablet) 7.5 mg PO BEDTIME [facility] Last Admin: 07/31/23 20:40 Dose: 7.5 mg Multivitamins/Vitamin C (Multivitamin Tablet) 1 tab PO DAILY [facility] Last Admin: 08/01/23 07:59 Dose: 1 tab Omeprazole (Omeprazole 20 Mg Capsule.Dr) 20 mg PO DAILY@0630 [facility] Last Admin: 08/01/23 06:09 Dose: 20 mg Pregabalin (Pregabalin 50 Mg Capsule) 50 mg PO TID [facility] Last Admin: 08/01/23 07:58 Dose: 50 mg Sodium Chloride (0.9 % Sodium Chloride Flush 3 Ml Syringe) 3 ml IVFLUSH QSHIFT [facility] Last Admin: 08/01/23 07:58 Dose: 3 ml Thiamine HCl (Thiamine Hcl 100 Mg Tablet) 100 mg PO DAILY [facility] Last Admin: 08/01/23 07:58 Dose: 100 mg Home Medications Medication Instructions Recorded Confirmed Last Taken Type blood sugar diagnostic (FreeStyle #10 ea 11/01/21 04/17/22 Unknown History Lite Strips) blood-glucose meter (FreeStyle #1 ea 11/01/21 04/17/22 Unknown History [place] Lite kit) clonidine HCl 0.2 mg tablet 0.2 mg PO BID 11/01/21 07/31/23 07/31/22 History doxazosin 1 mg tablet 1 mg PO DAILY 11/01/21 07/31/23 07/31/22 History dulaglutide 1.5 mg/0.5 mL 1.5 mg subcut WE@0900 11/01/21 07/31/23 07/31/23 History subcutaneous pen injector (Trulicity) duloxetine 30 mg capsule,delayed 30 mg PO DAILY 11/01/21 07/31/23 07/31/22 History release folic acid 1 mg tablet 1 mg PO DAILY 11/01/21 07/31/23 07/31/22 History levetiracetam 1,000 mg tablet 1,000 mg PO BID 11/01/21 07/31/23 07/31/22 History lisinopril 40 mg tablet 40 mg PO DAILY 11/01/21 07/31/23 07/31/22 History magnesium oxide 400 mg (241.3 mg 400 mg PO BID 11/01/21 07/31/23 07/31/22 History magnesium) tablet metformin 1,000 mg tablet 1,000 mg PO BIDWM 11/01/21 07/31/23 07/31/22 History omeprazole 20 mg capsule,delayed 20 mg PO DAILY@0630 11/01/21 07/31/23 07/31/22 History release pen needle, diabetic 31 gauge x #50 ea 11/01/21 04/17/22 Unknown History 10/04 (Sure Comfort Pen Needle) thiamine HCl (vitamin B1) 100 mg 100 mg PO DAILY 11/01/21 07/31/23 07/31/22 History tablet cyclobenzaprine 10 mg tablet 1 tab PO TID PRN muscle spasm 04/02/22 07/31/23 04/01/22 History insulin lispro 100 unit/mL See Protocol subcut TIDAC 04/02/22 07/31/23 07/31/22 History subcutaneous pen multivitamin 1 tab PO DAILY 04/02/22 07/31/23 07/31/22 History albuterol sulfate 90 mcg/actuation 2 puff inhalation Q6H PRN wheezing 07/31/23 07/31/23 Unknown History aerosol inhaler (Ventolin HFA) doxepin 10 mg capsule 10 mg PO BEDTIME 07/31/23 07/31/23 07/30/22 History escitalopram oxalate 10 mg tablet 15 mg PO QAM 07/31/23 07/31/23 07/31/22 History hydroxyzine HCl 25 mg tablet 25 mg PO BID PRN Anxiety 07/31/23 07/31/23 07/31/22 History insulin glargine 100 unit/mL (3 10 unit subcut BID 07/31/23 07/31/23 07/31/22 History mL) subcutaneous pen mirtazapine 7.5 mg tablet 7.5 mg PO BEDTIME 07/31/23 07/31/23 07/30/22 History pregabalin 50 mg capsule 50 mg PO TID 07/31/23 07/31/23 07/31/22 History Physical Exam Vital Signs: Vital Signs: Last Vital Signs Temp 97.7 F 08/01/23 11:21 Pulse 73 08/01/23 11:21 Resp 17 08/01/23 11:21 BP 117/57 L 08/01/23 11:21 Pulse Ox 96 08/01/23 11:21 O2 Del Method Room Air 08/01/23 11:21 BMI result Body Mass Index 35.2 Neuro: Other: She is alert and awake with normal spontaneity of speech fluency comprehension and affect. Face is symmetrical. Visual blakely are full. There is mild right arm and severe right foot and leg weakness. Results Labs 07/31/23 17:20 08/01/23 05:50 Labs: Short CBC 07/31/23 Range/Units 17:20 WBC 9.9 (4.8-10.8) X10*3/uL Hgb 15.2 (12.0-16.0) g/dl Hct 44.5 (37.0-47.0) % Plt Count 282 (160-400) X10*3/uL BMP 07/31/23 08/01/23 17:20 05:50 Sodium 139 139 Potassium 3.7 3.5 Chloride 106 104 Carbon Dioxide 22 27 BUN 8 L 14 Creatinine 0.66 0.76 Calcium 8.8 8.5 Cardiac Enzymes 07/31/23 Range/Units 17:20 Total Creatine Kinase 36 (26-140) U/L Liver Function 08/01/23 Range/Units 05:50 Total Bilirubin 0.4 (0.0-1.0) mg/dL AST 40 H (5-31) U/L ALT 34 H (0-31) U/L Alkaline Phosphatase 84 (39-117) U/L Albumin 3.4 L (3.5-5.0) g/dL Urine 07/31/23 Range/Units 17:20 Urine Color Yellow Urine Appearance Clear Urine pH 8.0 (5.0-9.0) Ur Specific [place] >= 1.030 H (1.005-1.025) Urine Protein Negative (Neg-Trace) mg/dL Urine Glucose (UA) 500 H (Negative) mg/dL CTA of brain and neck did not reveal any vascular lesion. MRI did not reveal any acute stroke. Chronic left ANNA infarct was noted Assessment and Plan (1) Lower extremity weakness: Qualifiers: Laterality: right Qualified Code(s): R29.898 - Other symptoms and signs involving the musculoskeletal system Status: Acute 47 years old woman with history of left anterior cerebral artery infarct resulting in right hemiparesis, leg more than arm, presented with nonspecific terms of worsening weakness after she suffered from cold or flu-like illness. Her evaluation did not reveal any new or acute lesion. Likely etiology was worsening of symptoms related to viral syndrome. PT OT, hydration, reassurance and education is recommended. Continue vascular risk factors controlled including baby aspirin daily. Procedures Date of Service Date of Service: 08/01/23
[2023-08-01 12:04] LABS: Estimated Average Glucose 255 mg/dL; Hemoglobin A1c % 10.5 % (<6.0)
--- NOTE | 2023-08-01 12:17 | MHC.CM.NN ---
pt lives alone needs an amb home has a business system consultant and nursing services that does her meds she does not know her vna name
--- NOTE | 2023-08-01 12:25 | PC.NURSE ---
verbal order to d/c Tele.
--- NOTE | 2023-08-01 12:29 | P.F2F_ITS ---
Service Date Service Date: 08/01/23 Encounter Date of encounter: 08/01/23 Reasons for Services Signs and symptoms assessed: PHysical deconditioning. Reason for physical therapy: home safety and mobility and therapeutic exercises Homebound: Leaving the home is medically contraindicated at this time without the asist of a device and/or another person due th the listed conditions above and below. Reason homebound: unsteady gait / fall risk Certification: Based on the above findings, I certify that this patient is confined to the home and needs intermittent long term care, physical therapy and/or speech therapy, or continues to need occupational therapy. The patient is under my care, and I have initiated the establishment of the plan of care. The patient will be followed by a physician who will periodically review the plan of care. Time Spent With Patient Time: Total time managing care of this patient today ____ minutes.
--- NOTE | 2023-08-01 12:30 | P.DS_ITS ---
DS: Providers Provider Date of Service: 08/01/23 Date of admission: 08/01/23 00:08 Primary care physician: [facility] Consults: 07/31/23 18:57 Consult to Neurology Routine Consulting Provider: [facility] Reason for consultation: Right-sided weakness/numbness/tingling, ?TIA vs stroke DS: Diagnosis Discharge Diagnosis (1) Lower extremity weakness: Status: Acute (2) Neuropathy: Status: Acute DS: Summary Hospital Course Hospital Course: Admission note HPI Pt is a 47-year-old female with a PMH significant for?CVA in 2019, seizure disorder, HTN, insulin-dependent diabetes type 2, GERD, and depression who presents to the ED for evaluation of right-sided numbness and tingling since this morning. Patient states yesterday she felt she was getting sick since her body, particuarly the right side, was feeling heavy . She assumed she was catching the flu from her kids who were also sick. Pt went to bed last night and woke this morning at 04:00. She still felt off, but was able to go to the bathroom without incident. Woke next at 08:00 and was able to make breakfast and eat. Again was feeling off so lay down and woke up again at noon when she found that she could neither feel nor move her right leg. States her whole right side felt ?heavy? and she numbness and tingling from her right hip to the bottom of her foot, worse distally. Also reports having some upper right extremity weakness, which has since resolved. Endorses headache since last night, though denies acute vision changes. Denies confusion, dysarthria, difficulty word finding, dysphagia. Patient notes she had a stroke in October 2018 with very different symptoms: States she was just walking and then fell down and blacked out, and when she awoke she was already in the hospital being treated. Had residual right-sided weakness and was in a long-term care facility for 2 and half years receiving treatment. Patient continues to have right-sided deficits, and uses a walker at baseline for ambulation. No fever, nausea, vomiting, abdominal pain. Denies chest pain/pressure, palpitations. No SOB. In the ED pt was slightly hypertensive at 145/70, otherwise vitals WNL. Labs were significant for elevated POC at 298, otherwise grossly unremarkable. No electrolyte abnormalities. No leukocytosis. Stable H&H. UA positive for moderate leukocyte esterase, but negative for nitrites, wbc's, and bacteria, likely negative for UTI. Tested negative for COVID and flu. Tox screen pending. CT?of head found no evidence for acute intracranial hemorrhage or edematous territorial infarction, but did show chronic encephalomalacia of the right parasagittal frontoparietal lobes. CTA of head and neck found no hemodynamically significant stenosis or occlusion in the cervical or intracranial vasculature, but did show multilevel cervical spondylolysis with ossification. EKG demonstrated normal sinus rhythm without evidence of significant ST elevations or depressions. Pt was treated with aspirin. ED contacted Neurology who recommended against TNK since outside of therapeutic window with last known well time, and suggested non emergent MRI head/brain and admission for further workup. Pt will be admitted to the hospital under observation for further evaluation of possible TIA versus stroke. Hospital course The patient presented with reported right-sided numbness, tingling, weakness, especially in lower leg. A CT of head and CTA of head/neck negative for acute intracranial pathology. An MRI was ordered as well and came back negative for any acute stroke. She was seen by Neurologist who recommended PT\OT as he symptoms are chronic and the reported worsening related to recent viral illness and neuropathy from poorly controlled diabetes. Started on Aspirin and Atorvasatitin as somehow she is not on them and she is not sure why. PT\OT recommended home PT. Her HbA1c elevated at 10.5, Lantus increased to 15 units bid. advised for better control and closer monitoring. Start Aspirin and Atorvastatin Better control of your blood sugar , Increase insulin to 15 units twice daily Monitor blood pressure Time Attestation Discharge coordination time: Less than 30 minutes Quality: Safe Use of Opioids Does Pt have an Active Cancer Diagnosis on the Problem List?: No Quality: Stroke Does the patient have a stroke diagnosis?: No Physical Exam Vital Signs: Vital Signs: Last Vital Signs Temp 97.7 F 08/01/23 11:21 Pulse 73 08/01/23 11:21 Resp 17 08/01/23 11:21 BP 117/57 L 08/01/23 11:21 Pulse Ox 96 08/01/23 11:21 O2 Del Method Room Air 08/01/23 11:21 BMI result Body Mass Index 35.2 Const: Other: Constitutional : Awake, interactive, not in distress Neck : Normal inspection, Supple Cardiovascular : RRR, no JVP, no lower extremity edema Respiratory : good bilateral air entry, no crackles, wheezes or rhonchi Gastrointestinal: soft, lax, Normal bowel sounds, Non tender Skin : Warm, Dry Neurological : Alert & oriented x3, right sided mild weakness more noticable in lower extremity, CN 2-12 within normal DS: Data Data Completed and Pending Completed studies during hospitalization [Text1]: Procedures Resection of Gallbladder, Percutaneous Endoscopic Approach (04/02/22) Labs on day of discharge: Laboratory Results - last 24 hr 07/31/23 07/31/23 07/31/23 16:04 16:06 17:12 WBC RBC Hgb Hct MCV MCH MCHC RDW Plt Count MPV Immature Gran % (Auto) Neut % (Auto) Lymph % (Auto) [place] % (Auto) Eos % (Auto) Baso % (Auto) Lymph # (Auto) [place] # (Auto) Eos # (Auto) Baso # (Auto) Abs Immat Gran (auto) Absolute Neuts (auto) Absolute Nucleated RBC Nucleated RBC % (auto) Hold Purple Top PT Whole Blood PT 12.3 INR Whole Blood INR 1.0 APTT Sodium Potassium Chloride Carbon Dioxide Anion Gap BUN Creatinine Estim Creat Clear Calc Estimated GFR POC Glucose 298 H 214 H Random Glucose Estimat Average Glucose Hemoglobin A1c % Calcium Magnesium Total Bilirubin AST ALT Alkaline Phosphatase Total Creatine Kinase Troponin I High Sens Total Protein Albumin Triglycerides Cholesterol LDL Cholesterol, Calc HDL Cholesterol Urine Color Urine Appearance Urine pH Ur Specific [place] Urine Protein Urine Glucose (UA) Urine Ketones Urine Blood Urine Nitrite Ur Leukocyte Esterase Urine RBC Urine WBC Ur Squamous Epith Cells Urine Bacteria Hyaline Casts Urine Opiates Screen Urine Fentanyl Screen Ur Barbiturates Screen Ur Phencyclidine Scrn Ur Amphetamines Screen U Benzodiazepines Scrn Urine Cocaine Screen U Marijuana (THC) Screen COVID-19 (PETER) COVID-19 Clin Com Influenza Type A (MICHELLE) Influenza Type B (MICHELLE) Influenza A & B Note 07/31/23 07/31/23 07/31/23 17:20 20:28 21:54 WBC 9.9 RBC 5.64 H Hgb 15.2 Hct 44.5 MCV 78.9 L MCH 27.0 MCHC 34.2 RDW 14.4 Plt Count 282 MPV 10.7 Immature Gran % (Auto) 0.4 Neut % (Auto) 60.8 Lymph % (Auto) 29.8 [place] % (Auto) 6.0 Eos % (Auto) 2.3 Baso % (Auto) 0.7 Lymph # (Auto) 3.0 [place] # (Auto) 0.6 Eos # (Auto) 0.2 Baso # (Auto) 0.1 Abs Immat Gran (auto) 0.04 H Absolute Neuts (auto) 6.0 Absolute Nucleated RBC 0.000 Nucleated RBC % (auto) 0.0 Hold Purple Top PT 11.9 Whole Blood PT INR 1.0 Whole Blood INR APTT 31.5 Sodium 139 Potassium 3.7 Chloride 106 Carbon Dioxide 22 Anion Gap 15 BUN 8 L Creatinine 0.66 Estim Creat Clear Calc 118.9 Estimated GFR > 60 POC Glucose 223 H 312 H Random Glucose 222 H Estimat Average Glucose Hemoglobin A1c % Calcium 8.8 Magnesium Total Bilirubin AST ALT Alkaline Phosphatase Total Creatine Kinase 36 Troponin I High Sens < 2.7 Total Protein Albumin Triglycerides Cholesterol LDL Cholesterol, Calc HDL Cholesterol Urine Color Yellow Urine Appearance Clear Urine pH 8.0 Ur Specific [place] >= 1.030 H Urine Protein Negative Urine Glucose (UA) 500 H Urine Ketones Negative Urine Blood Negative Urine Nitrite Negative Ur Leukocyte Esterase Moderate (2+) H Urine RBC 0-2 Urine WBC 0-5 Ur Squamous Epith Cells 3-5 Urine Bacteria None Seen Hyaline Casts 0-2 Urine Opiates Screen Not Detected Urine Fentanyl Screen Not Detected Ur Barbiturates Screen Not Detected Ur Phencyclidine Scrn Not Detected Ur Amphetamines Screen Not Detected U Benzodiazepines Scrn Not Detected Urine Cocaine Screen Not Detected U Marijuana (THC) Screen POSITIVE H COVID-19 (PETER) Negative COVID-19 Clin Com See Note Influenza Type A (MICHELLE) Negative Influenza Type B (MICHELLE) Negative Influenza A & B Note See Note 08/01/23 08/01/23 08/01/23 05:50 07:35 11:19 WBC RBC Hgb Hct MCV MCH MCHC RDW Plt Count MPV Immature Gran % (Auto) Neut % (Auto) Lymph % (Auto) [place] % (Auto) Eos % (Auto) Baso % (Auto) Lymph # (Auto) [place] # (Auto) Eos # (Auto) Baso # (Auto) Abs Immat Gran (auto) Absolute Neuts (auto) Absolute Nucleated RBC Nucleated RBC % (auto) Hold Purple Top SEE NOTE PT Whole Blood PT INR Whole Blood INR APTT Sodium 139 Potassium 3.5 Chloride 104 Carbon Dioxide 27 Anion Gap 12 BUN 14 Creatinine 0.76 Estim Creat Clear Calc 103.3 Estimated GFR > 60 POC Glucose 260 H 338 H Random Glucose 274 H Estimat Average Glucose 255 Hemoglobin A1c % 10.5 H Calcium 8.5 Magnesium 1.6 Total Bilirubin 0.4 AST 40 H ALT 34 H Alkaline Phosphatase 84 Total Creatine Kinase Troponin I High Sens Total Protein 6.6 Albumin 3.4 L Triglycerides 150 H Cholesterol 153 LDL Cholesterol, Calc 83 HDL Cholesterol 40 L Urine Color Urine Appearance Urine pH Ur Specific [place] Urine Protein Urine Glucose (UA) Urine Ketones Urine Blood Urine Nitrite Ur Leukocyte Esterase Urine RBC Urine WBC Ur Squamous Epith Cells Urine Bacteria Hyaline Casts Urine Opiates Screen Urine Fentanyl Screen Ur Barbiturates Screen Ur Phencyclidine Scrn Ur Amphetamines Screen U Benzodiazepines Scrn Urine Cocaine Screen U Marijuana (THC) Screen COVID-19 (PETER) COVID-19 Clin Com Influenza Type A (MICHELLE) Influenza Type B (MICHELLE) Influenza A & B Note Imaging MRI - head: Radiologist's impression: ITS Impressions Head CT 07/31/23 16:14 IMPRESSION: 1. No evidence of acute intracranial hemorrhage or edematous territorial infarction. 2. Chronic encephalomalacia of the left parasagittal frontoparietal lobes. This critical result was discussed with Micki Flores MD at 16:25 on 07/31/2023 and it was ascertained that the content and urgency of the report was understood at the time of direct communication. Head/Neck CTA 07/31/23 16:37 IMPRESSION: No hemodynamically significant stenosis or occlusion in the cervical or intracranial vasculature which are fairly normal in appearance. Multilevel cervical spondylosis with ossification of the posterior longitudinal ligament mildly impressing upon the ventral thecal sac. Findings were preliminarily reported by Dr. Marcelino to Dr. Flores at 4:25 PM on 07/31/2023. Brain MRI 07/31/23 21:24 FINDINGS/IMPRESSION: The ordered MRI examination could not be completed due to claustrophobia. Only axial diffusion and sagittal T1-weighted images were obtained. No reduced diffusion is observed to suggest acute ischemia. Encephalomalacia involving the medial left parietal lobe. No mass effect or midline shift. There is some ex vacuo dilatation of the left lateral ventricle. No evidence of hydrocephalus. There is thinning of the posterior body of the corpus callosum. Midline structures otherwise appear normal. Grossly normal marrow signal. Discharge Plan Discharge Anticipated Discharge Date/Time: 08/01/23 11:26 Patient Disposition: Home Health Service Discharge Diagnosis: Weakness and numbness right lower extremity Referrals: [facility] [Primary Care Provider] - 1 Week Discharge Medications: New atorvastatin 40 mg Tablet 40 mg PO BEDTIME Qty: 90 0RF aspirin 81 mg Tablet,Chewable 81 mg PO DAILY Qty: 90 0RF Continued multivitamin Tablet 1 tab PO DAILY cyclobenzaprine 10 mg tablet 1 tab PO TID PRN (Reason: muscle spasm) insulin lispro 100 unit/mL insulin pen See Protocol subcut TIDA Protocol: Insulin Correction Scale Less than or equal to 110 ---- Give (units): 0 111 to 150 Give (units): 0 151 to 200 Give (units): 2 201 to 250 Give (units): 4 251 to 300 Give (units): 6 301 to 350 Give (units): 8 Greater than 350 Give (units): 10 Call MD if Blood Glucose > : 350 doxepin 10 mg capsule 10 mg PO BEDTIME hydroxyzine HCl 25 mg tablet 25 mg PO BID PRN (Reason: Anxiety) albuterol sulfate [Ventolin HFA] 90 mcg/actuation HFA aerosol inhaler 2 puff INHALATION Q6H PRN (Reason: wheezing) escitalopram oxalate 10 mg tablet 15 mg PO QAM mirtazapine 7.5 mg tablet 7.5 mg PO BEDTIME pregabalin 50 mg capsule 50 mg PO TID omeprazole 20 mg capsule,delayed release(DR/EC) 20 mg PO DAILY@0630 (DME) blood-glucose meter [[employer] SystemsStyle [place] Lite] Kit See Rx Instructions Not Applicable DAILY Qty: 1 Rx Instructions: As directed levetiracetam 1,000 mg tablet 1,000 mg PO BID thiamine HCl (vitamin B1) 100 mg tablet 100 mg PO DAILY doxazosin 1 mg tablet 1 mg PO DAILY (DME) FreeStyle Lite Strips Strip See Rx Instructions Not Applicable TID Qty: 10 Rx Instructions: As directed duloxetine 30 mg capsule,delayed release(DR/EC) 30 mg PO DAILY magnesium oxide 400 mg (241.3 mg magnesium) tablet 400 mg PO BID folic acid 1 mg tablet 1 mg PO DAILY Trulicity 1.5 mg/0.5 mL pen injector 1.5 mg subcut WE@0900 clonidine HCl 0.2 mg tablet 0.2 mg PO BID lisinopril 40 mg tablet 40 mg PO DAILY metformin 1,000 mg tablet 1,000 mg PO BIDWM (DME) pen needle, diabetic [Sure Comfort Pen Needle] 31 gauge x 3/16 needle See Rx Instructions .ROUTE BID Qty: 50 Rx Instructions: As directed Changed insulin glargine 100 unit/mL (3 mL) Insulin Pen 15 unit SUBCUT BID Qty: 15 2RF Discharge Orders: Discharge Order (Routine); Ordered 08/01/23 Ordered By: Wesley Little Diet: Advance to usual diet Activity on Discharge: As tolerated Stand Alone Forms: Patient Portal Discharge page Care Plan Goals: Read below Health Concerns: Read below Plan of Treatment: Read below Assessment: You were admitted for evaluation of right lower extremity weakness. Brain images of CT and MRI were negative for any new stroke. You were seen by physical therapy team who recommended home therapy. Start Aspirin and Atorvastatin Better control of your blood sugar , Increase insulin to 15 units twice daily Monitor blood pressure
--- NOTE | 2023-08-01 15:36 | MHC.CM.PN ---
PT WILL DC HOME TODAY WITH RESUMPTION OF HOME SERVICES BLS TRANSPORT [facility]IA [facility] ARRANGED FOR 1600 HOURS
[2023-08-01 16:29] LABS: Glucose, Whole Blood 241 mg/dL (60-115)
== END 2023-08-01 17:25 | disposition home health service (06) | DRG 48 ==
LOC: HO.ED 16:55 → HO.EDOVER 19:01 → HO.S3 19:55
PROVIDERS: Admitting Provider Student in an Organized Health Care Education/Training Program; Emergency Provider Student in an Organized Health Care Education/Training Program; PCP Nurse Practitioner Primary Care; Visit Provider Student in an Organized Health Care Education/Training Program
DX: E11.40 Type 2 diabetes mellitus with diabetic neuropathy, unspecified (principal); I69.351 Hemiplegia and hemiparesis following cerebral infarction affecting right dominant side; I10 Essential (primary) hypertension; E11.65 Type 2 diabetes mellitus with hyperglycemia; J44.9 Chronic obstructive pulmonary disease, unspecified; F32.A Depression, unspecified; G40.909 Epilepsy, unspecified, not intractable, without status epilepticus; Z20.822 Contact with and (suspected) exposure to COVID-19; Z79.4 Long term (current) use of insulin; Z87.891 Personal history of nicotine dependence; Z79.82 Long term (current) use of aspirin; Z79.84 Long term (current) use of oral hypoglycemic drugs; Z79.85 Long-term (current) use of injectable non-insulin antidiabetic drugs; Z79.899 Other long term (current) drug therapy
CPT/HCPCS: 36415; 70450; 70496; 70498; 70551; 80048; 80053; 80061; 80307; 81001; 82550; 82947; 83036; 83735; 84484; 85025; 85610; 85730; 87502; 87635; 93005; 97162; 97166; 99221; 99285; J1650; J2060

== ENCOUNTER → 2023-07-31 16:06 | Outpatient (BNV) | payer MEDICAID, SELFPAY | PROVIDERS: Admitting Provider Student in an Organized Health Care Education/Training Program; Emergency Provider Student in an Organized Health Care Education/Training Program; Visit Provider Internal Medicine Cardiovascular Disease | DX: I63.9 Cerebral infarction, unspecified (principal) | CPT/HCPCS: 93010 ==

== ENCOUNTER → 2023-08-01 00:08 | Outpatient (BNV) | payer MEDICAID, SELFPAY | PROVIDERS: Admitting Provider Student in an Organized Health Care Education/Training Program; Emergency Provider Student in an Organized Health Care Education/Training Program; Visit Provider Student in an Organized Health Care Education/Training Program | DX: E11.42 Type 2 diabetes mellitus with diabetic polyneuropathy (principal); R29.898 Other symptoms and signs involving the musculoskeletal system | CPT/HCPCS: 99222; 99238; G0180 ==

== ENCOUNTER 2023-09-12 09:34 | Outpatient (REF) | payer MEDICAID, SELFPAY ==
[2023-09-12 11:51] LABS: Alanine Aminotransferase 51 U/L (0-31); Albumin Level 3.9 g/dL (3.5-5.0); Alkaline Phosphatase 113 U/L (39-117); Anion Gap 13 (12-20); Aspartate Amino Transferase 69 U/L (5-31); Bilirubin Total 0.5 mg/dL (0.0-1.0); Blood Urea Nitrogen 9 mg/dL (9-16); Calcium 9.2 mg/dL (8.4-10.2); Carbon Dioxide 27 mmol/L (22-29); Chloride 104 mmol/L (96-108); Cholesterol 111 mg/dL (<200); Estimated Glomerular Filt Rate > 60; Glucose Random 204 mg/dL (60-115); HDL Cholesterol 42 mg/dL (>40); LDL Cholesterol Calculated 52 mg/dL (<100); Potassium 3.5 mmol/L (3.3-5.1); Sodium 140 mmol/L (135-145); Triglycerides 88 mg/dL (<150)
[2023-09-12 12:16] LABS: Creatinine Urine 122.89 mg/dL
== END 2023-09-12 09:35 | disposition home or self-care (01) ==
LOC: HO.HHCL 09:34
PROVIDERS: Visit Provider Nurse Practitioner Primary Care
DX: E11.69 Type 2 diabetes mellitus with other specified complication (principal); E78.5 Hyperlipidemia, unspecified
CPT/HCPCS: 36415; 80053; 80061; 82043; 82570

== ENCOUNTER 2023-09-24 08:49 | Outpatient (RCR) | payer MEDICAID, SELFPAY | END 2023-12-11 14:35 | disposition home or self-care (01) | LOC: HO.PT 08:49 | PROVIDERS: PCP Nurse Practitioner Primary Care; Visit Provider Nurse Practitioner Primary Care | DX: G81.91 Hemiplegia, unspecified affecting right dominant side (principal) ==

== ENCOUNTER 2023-10-22 14:53 | Inpatient (IN) | payer MEDICAID, SELFPAY ==
--- NOTE | ~2023-10-22 | CT_ITS ---
EXAMINATION: CT ANGIOGRAM HEAD CT ANGIOGRAM NECK CLINICAL INFORMATION: Reason for Exam Right-sided weakness COMPARISON: Same day noncontrast head CT, CTA head and neck 07/31/2023 TECHNIQUE: Initial noncontrast kineseologist imaging of the head and neck was performed. Comparison is made with noncontrast head CT from earlier today. Test bolus sequences followed by intravenous administration 70 mL of Omnipaque 350. Helical imaging was performed in the axial plane from the aortic arch to the skull vertex. Delayed postcontrast imaging of the head was also performed. The data was processed at the cardiopulmonary technologist workstation for generation of MIP sequences. Angled MIPs and volume rendered reformatted images were also generated at an offline 3D workstation. Stenoses are assessed in accordance with NASCET criteria unless otherwise indicated. DLP: 1557 mGy-cm This CT examination was performed using dose optimization techniques as appropriate, variously including the following: *Automated exposure control. *Adjustment of mA and/or kV according to patient size (this includes techniques or standardized protocols for targeted exams where dose is matched to indication/reason for exam; i.e. extremities or head). *Use of iterative reconstruction technique. FINDINGS: CT Head: There is no evidence of acute intracranial hemorrhage or edematous territorial infarction. Chronic left ANNA territory infarct. Vicente-white matter differentiation is preserved. The ventricles are normal in size and configuration. No evidence for obstructive hydrocephalus. No abnormal mass effect or midline shift. No extra-axial fluid collections. No pathologic intra-axial enhancement or regional oligemia. No acute soft tissue or osseous abnormalities. The mastoid air cells and paranasal sinuses are clear. CT Neck: The thyroid gland and remaining cervical soft tissues are within normal limits. Multilevel cervical spondylosis. 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 CT Upper Chest: The visualized lung apices and upper mediastinum are within normal limits. CTA of the head and neck is technically limited secondary to motion artifact, suboptimal arterial contrast opacification, as well as intracranial venous contamination. Neck CTA: Aortic Arch: Normal contour and caliber. Classic 3 vessel branching pattern of the aortic arch. Great Vessel Origins: No significant stenosis of the branch origins. Right Common Carotid Artery: No focal stenosis or occlusion. Cervical Right Internal Carotid Artery: Normal opacification without focal stenosis or occlusion. Left Common Carotid Artery: No focal stenosis or occlusion. Cervical Left Internal Carotid Artery: Normal opacification without focal stenosis or occlusion. Cervical Right Vertebral Artery: Dominant. No focal stenosis or occlusion. Cervical Left Vertebral Artery: No focal stenosis or occlusion. Brain CTA: Intracranial Internal Carotid Arteries: No focal stenosis or occlusion. Right Anterior Cerebral Artery: Normal A1 segment. Normal opacification of the distal ANNA segments. Left Anterior Cerebral Artery: Normal A1 segment. Normal opacification of the distal ANNA segments. Anterior Communicating Artery: Normal. Right Middle Cerebral Artery: Normal M1 segment of the MCA without focal stenosis or occlusion. Normal arborization of the distal segments. Left Middle Cerebral Artery: Normal M1 segment of the MCA without focal stenosis or occlusion. Normal arborization of the distal segments. Right Vertebral Artery: Normal V4 segment. Left Vertebral Artery: Terminates predominantly as PICA with small branch contributing to the basilar artery. Basilar Artery: Normal without focal stenosis or occlusion. Normal appearance of the proximal superior cerebellar arteries. Right Posterior Cerebral Artery: The P1 segment is diminutive. origin of the FOOD PROCESSING CHEMIST with robust opacification of the posterior communicating artery. Normal opacification of the distal FOOD PROCESSING CHEMIST segments. Left Posterior Cerebral Artery: The P1 segment is diminutive. origin of the FOOD PROCESSING CHEMIST with robust opacification of the posterior communicating artery. Normal opacification of the distal FOOD PROCESSING CHEMIST segments. Normal opacification of the superior sagittal, straight, transverse, and sigmoid sinuses. CT/CT angio head neck stroke IMPRESSION: Somewhat technically limited CTA of the head and neck for multiple reasons stated above. Within this limitation, no evidence of arterial high-grade stenosis or large vessel occlusion in the head or neck. Above impression was communicated to Dr Mancini on 10/22/2023 6:49 PM
--- NOTE | ~2023-10-22 | CT_ITS ---
EXAMINATION: CT HEAD WITHOUT CONTRAST (STROKE PROTOCOL) CLINICAL INFORMATION: Stroke protocol. Right sided weakness COMPARISON: Previous head CT July 2023 TECHNIQUE: Contiguous axial imaging was performed from the skull base to vertex without intravenous administration of contrast. This CT examination was performed using dose optimization techniques as appropriate, variously including the following: *Automated exposure control *Adjustment of mA and/or kV according to patient size (this includes techniques or standardized protocols for targeted exams where dose is matched to indication/reason for exam; i.e. extremities or head) *Use of iterative reconstruction technique DLP: 703 mGy-cm FINDINGS: There is no evidence of an extra-axial collection. There is no evidence of intra or extra-axial hemorrhage. There is mild ex vacuo dilatation of the left lateral ventricle. The ventricles and extra-axial CSF spaces are otherwise appropriate. Vicente-white matter differentiation is normal. There is an old left parasagittal frontoparietal infarct or area of encephalomalacia that appears unchanged. No mass, mass effect or acute infarct. No skull fracture. Visualized paranasal sinuses, mastoid air cells and middle ears are clear. CT/CT head for stroke IMPRESSION: Old left parasagittal frontoparietal infarct or area of encephalomalacia and ex vacuo dilatation of the left lateral ventricle similar to July 2023 exam. No acute findings. Follow-up by MRI should be considered if clinically indicated. This critical result was discussed with Dr. Mancini at 1835 hours on 10/22/2023 . It was ascertained that the content and urgency of the report was understood at the time of direct communication.
--- NOTE | 2023-10-22 15:00 | ECG_ITS ---
Test Reason : SIEZURE Blood Pressure : / mmHG Vent. Rate : 097 BPM Atrial Rate : 097 BPM P-R Int : 184 ms QRS Dur : 084 ms QT Int : 362 ms P-R-T Axes : 049 010 014 degrees QTc Int : 459 ms Poor data quality Possible Normal sinus rhythm Normal ECG When compared with ECG of 31-JUL-2023 16:45, Poor data quality in current ECG precludes serial comparison Referred By: Dilcia Escalera Electronically Signed By:NIGHAT COLEMAN MD
[2023-10-22 15:29] VITALS: BP 134/72; BP 144/73; PULSE 104; PULSE 93; RESP 20; TEMP 36.7; O2SAT 94; O2SAT 98; BMI 44.4
[2023-10-22 17:12] LABS: MANUAL DIFF FLAG NO
[2023-10-22 17:17] LABS: Basophils Absolute Auto 0.1 X10*3/uL (0.0-0.2); Basophils Percent Auto 0.8 % (0-2); Eosinophils Absolute Auto 0.1 X10*3/uL (0.0-0.4); Eosinophils Percent Auto 0.8 % (0-4); Hemoglobin 14.2 g/dl (12.0-16.0); Imm Gran Abs Auto 0.06 X10*3/uL (0.00-0.03); Imm Gran Pct Auto 0.5 % (0.0-0.4); Lymphocytes Absolute Auto 2.6 X10*3/uL (1.2-4.9); Lymphocytes Percent Auto 19.9 % (20-40); Mean Corpuscular HGB Conc 34.6 g/dl (31.0-35.0); Mean Corpuscular Hemoglobin 27.8 pg (27.0-33.0); Mean Corpuscular Volume 80.4 fL (80.0-98.0); Mean Platelet Volume 10.4 fL (9.4-12.3); Monocytes Absolute Auto 0.7 X10*3/uL (0.1-1.2); Monocytes Percent Auto 5.5 % (2-11); Neutrophils Absolute Auto 9.6 x10*3/uL (2.0-8.3); Neutrophils Percent Auto 72.5 % (45-73); Platelet Count 327 X10*3/uL (160-400); Red Cell Distribution Width 14.3 % (11.0-16.0); White Blood Count 13.2 X10*3/uL (4.8-10.8)
--- NOTE | 2023-10-22 17:26 | ED_ITS ---
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 Patient initially declined to the nurse that she is taking any anti seizure medication however patient admitted that she is taking Keppra 1000 mg b.i.d. at home for her seizure. Related Data Home Medications Medication Instructions Recorded Confirmed blood sugar diagnostic (FreeStyle #10 ea 11/01/21 04/17/22 Lite Strips) blood-glucose meter (FreeStyle #1 ea 11/01/21 04/17/22 [place] Lite kit) clonidine HCl 0.2 mg tablet 0.2 mg PO BID 11/01/21 07/31/23 doxazosin 1 mg tablet 1 mg PO DAILY 11/01/21 07/31/23 dulaglutide 1.5 mg/0.5 mL 1.5 mg subcut WE@0900 11/01/21 07/31/23 [facility] duloxetine 30 mg capsule,delayed 30 mg PO DAILY 11/01/21 07/31/23 release folic acid 1 mg tablet 1 mg PO DAILY 11/01/21 07/31/23 levetiracetam 1,000 mg tablet 1,000 mg PO BID 11/01/21 07/31/23 lisinopril 40 mg tablet 40 mg PO DAILY 11/01/21 07/31/23 magnesium oxide 400 mg (241.3 mg 400 mg PO BID 11/01/21 07/31/23 magnesium) tablet metformin 1,000 mg tablet 1,000 mg PO BIDWM 11/01/21 07/31/23 omeprazole 20 mg capsule,delayed 20 mg PO DAILY@0630 11/01/21 07/31/23 release pen needle, diabetic 31 gauge x #50 ea 11/01/21 04/17/22/16 (Sure Comfort Pen Needle) thiamine HCl (vitamin B1) 100 mg 100 mg PO DAILY 11/01/21 07/31/23 tablet cyclobenzaprine 10 mg tablet 1 tab PO TID PRN muscle spasm 04/02/22 07/31/23 insulin lispro 100 unit/mL See Protocol subcut TIDAC 04/02/22 07/31/23 subcutaneous pen multivitamin 1 tab PO DAILY 04/02/22 07/31/23 albuterol sulfate 90 mcg/actuation 2 puff inhalation Q6H PRN wheezing 07/31/23 07/31/23 aerosol inhaler (Ventolin HFA) doxepin 10 mg capsule 10 mg PO BEDTIME 07/31/23 07/31/23 escitalopram oxalate 10 mg tablet 15 mg PO QAM 07/31/23 07/31/23 hydroxyzine HCl 25 mg tablet 25 mg PO BID PRN Anxiety 07/31/23 07/31/23 mirtazapine 7.5 mg tablet 7.5 mg PO BEDTIME 07/31/23 07/31/23 pregabalin 50 mg capsule 50 mg PO TID 07/31/23 07/31/23 Previous Rx's Medication Instructions Recorded aspirin 81 mg chewable tablet 81 mg PO DAILY #90 tabs 08/01/23 atorvastatin 40 mg tablet 40 mg PO BEDTIME #90 tabs 08/01/23 insulin glargine 100 unit/mL (3 15 unit (0.15 mL) subcut BID #15 mL 08/01/23 mL) subcutaneous pen melatonin 10 mg capsule 10 mg PO BEDTIME PRN insomnia #60 08/01/23 caps Allergies Allergy/AdvReac Type Severity Reaction Status Date / Time tomato [TOMATO] Allergy Unknown RASH Verified 07/31/23 16:20 Review of Systems 2 Review of Systems: All other systems are reviewed and are negative Constitutional: Reports as per HPI and Reports no additional constitutional complaints Eyes: Reports as per HPI and Reports no additional eye complaints Reports system reviewed and no additional complaints, except as documented Cardiovascular: Reports as per HPI and Reports no additional cardiovascular complaints Respiratory: Reports as per HPI and Reports no additional respiratory complaints Gastrointestinal: Reports as per HPI and Reports no additional gastrointestinal complaints Genitourinary: Reports no additional female genitourinary complaints Musculoskeletal: Reports no additional musculoskeletal complaints Skin/Breast: Reports system reviewed and no additional complaints, except as docu Psychiatric: Reports no additional psychiatric complaints Endocrine: Reports no additional endocrine complaints Hematologic/Lymphatic: Reports no additional hematologic/lymphatic complaints Allergic/Immunologic: Reports no additional allergic/immunologic complaints Reports system reviewed and no additional complaints, except as documented and Reports Abnormal speech present [facility] Past Medical History Medical History Transaminitis Cholecystitis, acute with cholelithiasis UTI (urinary tract infection) Asthma Restless leg syndrome Stroke GERD (gastroesophageal reflux disease) Anxiety Depression Insomnia Neuropathy Seizure Hypertension Insulin dependent type 2 diabetes mellitus Morbid obesity Hx of completed stroke Surgical History History of laparoscopic cholecystectomy (04/05/22) History of Family History Family History Mother Diabetes Father Diabetes Alcoholism Social History Social History Household Members: None Housing: Apartment Do you presently have visiting nurse or 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 home 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, 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) Alcohol intake: never Patient Tobacco Use Status: Former Tobacco user Quit Date: 3 yrs ago Substance Use Type: Crack/Cocaine Advance Directives: Yes Advance Directives on File: Yes Advance Directives Date on File: 04/02/22 service: No Current occupational status: unemployed Physical Exam ED Vital Signs: Vital Signs - 24 hr 10/22/23 15:29 10/22/23 18:11 Temperature 98.1 F 97.7 F Pulse Rate 93 83 Respiratory Rate 20 18 Blood Pressure 144/73 H 113/72 Pulse Oximetry 98 94 Oxygen Delivery Method Room Air Room Air BMI result Body Mass Index 44.4 Vital signs have been reviewed and appear to be correct. Blood pressure elevated. Heart rate normal. Respiratory rate normal. Temperature normal. Oxygen saturation normal. Appearance: Alert. Oriented X3. No acute distress. Head: Normal external exam. Normocephalic. Atraumatic. No Segura signs noted. No raccoon eyes noted Eyes: PERRLA. EOMI. Conjunctiva and sclera normal. Eyelids normal. ENT: TM's Normal. Pharynx normal. Uvula midline. Moist mucous membranes. No trismus noted. No drooling noted. No muffled voice noted. Neck: Normal inspection. Neck supple. FROM. No adenopathy. Thyroid Normal. No meningeal signs. No neck mass noted. CVS: Normal heart rate and rhythm. Heart sound normal. No murmurs noted. Pulses normal throughout. Respiratory: No respiratory distress. Painless inspiration. Breath sounds normal. No wheezes/rales/rhonchi noted. Chest nontender. No accessory muscle usage noted or decreased air movement noted. Abdomen: Soft and nontender. Bowel sounds normal in all 4 quadrants. No distention noted. No organomegaly noted. No visible injury noted. Back: No CVA tenderness. Full range of motion noted. Skin: Skin warm and dry. Normal skin color. Normal skin turgor. No rashes/lesions/lacerations noted. Extremities: No lower extremity edema. Extremities exhibit normal range of motion. Extremities nontender. Neuro: Oriented X 3, pre-existing right side weakness. Cranial nerve exam: II-XII are grossly intact No motor deficit. No sensory deficit. Reflexes normal. Course Reevaluation(s) Reevaluation #1: 47-year-old female with history of CVA and right hemiparesis came in with multiple episodes of seizure mostly to her right upper extremity, no LOC, neuro exam is gradually coming back to normal baseline for the patient, had CT/CTA head and neck no acute changes, the case was discussed with Dr. Danielle recommended to manage postictal and seizure patient had previous similar presentation with negative MRI for acute stroke. Time: 19:23 Medical Decision Making Differential Diagnosis Differential Diagnoses: The differential diagnosis associated with the presentation includes (CVA, seizure, postictal, electrolyte derangement, severe anemia.) Admission/Observation Consideration of admission/observation: Escalation of care including admission/observation considered Consult Healthcare Provider Management of the patient was discussed with: Hospitalist (Dr. Freeman) and Ad Writer (Dr. Danielle) Lab Data MDM Lab Attestation statement: I reviewed the patient's lab results. 10/22/23 17:09 10/22/23 17:09 Labs: Lab Results 10/22/23 Range/Units 17:09 WBC 13.2 H (4.8-10.8) X10*3/uL RBC 5.10 (4.20-5.50) X10*6/uL Hgb 14.2 (12.0-16.0) g/dl Hct 41.0 (37.0-47.0) % MCV 80.4 (80.0-98.0) fL MCH 27.8 (27.0-33.0) pg MCHC 34.6 (31.0-35.0) g/dl RDW 14.3 (11.0-16.0) % Plt Count 327 (160-400) X10*3/uL MPV 10.4 (9.4-12.3) fL Immature Gran % (Auto) 0.5 H (0.0-0.4) % Neut % (Auto) 72.5 (45-73) % Lymph % (Auto) 19.9 L (20-40) % [place] % (Auto) 5.5 (2-11) % Eos % (Auto) 0.8 (0-4) % Baso % (Auto) 0.8 (0-2) % Lymph # (Auto) 2.6 (1.2-4.9) X10*3/uL [place] # (Auto) 0.7 (0.1-1.2) X10*3/uL Eos # (Auto) 0.1 (0.0-0.4) X10*3/uL Baso # (Auto) 0.1 (0.0-0.2) X10*3/uL Abs Immat Gran (auto) 0.06 H (0.00-0.03) X10*3/uL Absolute Neuts (auto) 9.6 H (2.0-8.3) x10*3/uL Absolute Nucleated RBC 0.000 (0.0-0.012) X10*3/uL Nucleated RBC % (auto) 0.0 (0.0-0.2) /100WBC Sodium 141 (135-145) mmol/L Potassium 3.5 (3.3-5.1) mmol/L Chloride 106 (96-108) mmol/L Carbon Dioxide 25 (22-29) mmol/L Anion Gap 14 (12-20) BUN 10 (9-16) mg/dL Creatinine 0.74 (0.5-1.4) mg/dL Estim Creat Clear Calc 99.7 Estimated GFR > 60 Random Glucose 245 H (60-115) mg/dL Calcium 9.0 (8.4-10.2) mg/dL Magnesium 1.6 (1.6-2.6) mg/dL Total Bilirubin 0.7 (0.0-1.0) mg/dL AST 87 H (5-31) U/L ALT 48 H (0-31) U/L Alkaline Phosphatase 87 (39-117) U/L Total Protein 7.5 (6.5-8.0) g/dL Albumin 3.8 (3.5-5.0) g/dL Influenza Type A (PCR) NEGATIVE (Negative) Influenza Type B (PCR) NEGATIVE (Negative) RSV RNA Qual (PCR) NEGATIVE (Negative) SARS-CoV-2 RNA (RT-PCR) NEGATIVE (Negative) Independent Interpretation I performed an independent interpretation of an: CT Scan (Head:Old left parasagittal frontoparietal infarct or area of encephalomalacia and ex vacuo dilatation of the left lateral ventricle similar to July 2023 exam. No acute findings. Follow-up by MRI should be considered if clinically indicated. ) Interpretation: CT angio:Somewhat technically limited CTA of the head and neck for multiple reasons stated above. Within this limitation, no evidence of arterial high-grade stenosis or large vessel occlusion in the head or neck. Radiology Impression Discussion of test interpretation with radiology: I have reviewed the radiologist's reading. Chronic Conditions Patient?s care impacted by: Other (Seizure disorder, previous stroke.) Discharge Plan Discharge Clinical Impression: Seizure, Post-ictal hemiplegia Patient Disposition: Admitted As Inpatient
[2023-10-22 17:31] LABS: Alanine Aminotransferase 48 U/L (0-31); Albumin Level 3.8 g/dL (3.5-5.0); Alkaline Phosphatase 87 U/L (39-117); Anion Gap 14 (12-20); Aspartate Amino Transferase 87 U/L (5-31); Bilirubin Total 0.7 mg/dL (0.0-1.0); Blood Urea Nitrogen 10 mg/dL (9-16); Carbon Dioxide 25 mmol/L (22-29); Chloride 106 mmol/L (96-108); Creatinine Clr Calc Pharmacy 99.7; Estimated Glomerular Filt Rate > 60; Glucose Random 245 mg/dL (60-115); Magnesium 1.6 mg/dL (1.6-2.6); Potassium 3.5 mmol/L (3.3-5.1); Sodium 141 mmol/L (135-145); Total Protein 7.5 g/dL (6.5-8.0)
[2023-10-22 17:58] LABS: Influenza A PCR NEGATIVE (Negative); Influenza B PCR NEGATIVE (Negative); Resp Syncy Virus RNA Qual PCR NEGATIVE (Negative); SARS COV2 PCR INHOUSE NEGATIVE (Negative)
[2023-10-22 18:11] VITALS: BP 113/72; PULSE 83; RESP 18; TEMP 36.5; O2SAT 94
[2023-10-22] MEDS: levETIRAcetam 500 MG TABLET PO (19:23)
--- NOTE | 2023-10-22 20:17 | PHA.MEDREC ---
Pharmacy Consult ? Medication Reconciliation Pharmacy has completed the medication reconciliation. Patient confirmed medications based on claim histroy and previous medical records. Report using Flexeril BID however medications has no recent filled therefore left as a prn medication. Patient report Lanuts 10 BID and SSI before meals. Patient reported she was okay with taking lexapro tablets. Zabrina Martinez, PharmD
--- NOTE | 2023-10-22 22:10 | PM.IMHP ---
History of Present Illness Date of Service: 10/22/23 Attending physician on admission: Kimberly Fry Chief Complaint: seizures 47-year-old female with history of insulin-dependent type 2 diabetes, history of CVA with sequela of right-sided hemiparesis, hypertension, unspecified seizure disorder, GERD, asthma, restless legs syndrome, history of crack cocaine abuse and former smoker who quit 3 years ago presents to the ED earlier today following reported 11 [id number] tonic-clonic seizures. She states she was in the kitchen cooking when she felt seizures coming on and recalls shaking for about 1 minute with repeat seizures happening about every 6-7 minutes. She states she did not talk during the episodes but does recall the instance. She denies head injury. 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 States last seizure to her knowledge prior to this episode was 2 years ago. She does not follow with Neurology and reports compliance with her antiseizure medications. She denies any tongue bite. She ambulates with a walker at baseline due to right-sided hemiparesis following CVA in 2019. Following the seizure she reports increased weakness on the right upper extremity. In the ED, vital signs stable. There is mild leukocytosis of 13.2. Renal function and electrolyte levels normal. Lactic acid was not checked. CK was not checked. Glucose 151. AST 87, ALT 48. Denies alcohol use, illicit drug use, or ongoing cigarette smoking. Head CT shows 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 CTA head/neck somewhat limited but does not appear to have evidence of high-grade stenosis or large vessel occlusion. ED did discuss case with Neurology who feels right upper extremity weakness is likely a post ictal hemiplegia rather than CVA. Patient will be for further management of breakthrough seizures with postictal hemiplegia. Review of Systems Review of Systems: General: No fevers, malaise, unintentional weight loss HEENT: No blurred vision, diplopia. No sore throat, nasal congestion, rhinorrhea, sinus pain, ear pain Cardiovascular: No chest pain, palpitations, or leg edema Respiratory: No shortness of breath, wheezing, cough GI: No abdominal pain, nausea, vomiting, diarrhea, constipation, melena, hematochezia : No dysuria, hematuria, increased urinary frequency, decreased urinary output MSK: No myalgia, back pain Neuro: No headaches, weakness, paresthesias. +seizure Skin: No rashes or lesions [facility] Medical History Transaminitis Cholecystitis, acute with cholelithiasis UTI (urinary tract infection) Asthma Restless leg syndrome Stroke GERD (gastroesophageal reflux disease) Anxiety Depression Insomnia Neuropathy Seizure Hypertension Insulin dependent type 2 diabetes mellitus Morbid obesity Hx of completed stroke Family History Mother Diabetes Father Diabetes Alcoholism Surgical History History of laparoscopic cholecystectomy (04/05/22) History of Social History Household Members: None Housing: Apartment Do you presently have visiting 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, 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) Alcohol intake: never Patient Tobacco Use Status: Former Tobacco user Quit Date: 3 yrs ago Substance Use Type: Crack/Cocaine Advance Directives: Yes Advance Directives on File: Yes Advance Directives Date on File: 04/02/22 service: No Current occupational status: unemployed Meds Allergies Allergy/AdvReac Type Severity Reaction Status Date / Time tomato [TOMATO] Allergy Unknown RASH Verified 07/31/23 16:20 Active Medications: Current Medications Acetaminophen (Acetaminophen 325 Mg Tablet) 650 mg PO Q6H PRN PRN Reason: Pain, Mild (Pain Scale 1-3) Enoxaparin Sodium (Enoxaparin Sodium 40 Mg/0.4 Ml Syringe) 40 mg SUBCUT Q24H [place] Ondansetron HCl (Ondansetron Hcl 4 Mg/2 Ml Vial) 4 mg IVPUSH Q8H PRN PRN Reason: Nausea and Vomiting Senna (Sennosides 8.6 Mg Tablet) 17.2 mg PO BEDTIME PRN PRN Reason: Constipation Sodium Chloride (0.9 % Sodium Chloride Flush 3 Ml Syringe) 3 ml IVFLUSH QSHIFT [facility] Home Medications Medication Instructions Recorded Confirmed Last Taken Type blood sugar diagnostic (FreeStyle #10 ea 11/01/21 04/17/22 Unknown History Lite Strips) blood-glucose meter (FreeStyle #1 ea 11/01/21 04/17/22 Unknown History [place] Lite kit) clonidine HCl 0.2 mg tablet 0.2 mg PO BID 11/01/21 10/22/23 10/22/23 History duloxetine 30 mg capsule,delayed 30 mg PO DAILY 11/01/21 10/22/23 10/22/23 History release folic acid 1 mg tablet 1 mg PO DAILY 11/01/21 10/22/23 10/22/23 History levetiracetam 1,000 mg tablet 1,000 mg PO BID@0900,1700 11/01/21 10/22/23 10/22/23 History lisinopril 40 mg tablet 40 mg PO DAILY 11/01/21 10/22/23 10/22/23 History magnesium oxide 400 mg (241.3 mg 400 mg PO BID 11/01/21 10/22/23 10/22/23 History magnesium) tablet metformin 1,000 mg tablet 1,000 mg PO BIDWM 11/01/21 10/22/23 10/22/23 History omeprazole 20 mg capsule,delayed 20 mg PO DAILY@0630 11/01/21 10/22/23 10/22/23 History release pen needle, diabetic 31 gauge x #50 ea 11/01/21 04/17/22 Unknown History 10/04 (Sure Comfort Pen Needle) thiamine HCl (vitamin B1) 100 mg 100 mg PO DAILY 11/01/21 10/22/23 10/22/23 History tablet cyclobenzaprine 10 mg tablet 1 tab PO BID PRN muscle spasm 04/02/22 10/22/23 04/01/22 History insulin lispro 100 unit/mL See Protocol subcut TIDAC 04/02/22 10/22/23 10/22/23 History subcutaneous pen albuterol sulfate 90 mcg/actuation 2 puff inhalation Q6H PRN wheezing 07/31/23 10/22/23 Unknown History aerosol inhaler (Ventolin HFA) hydroxyzine HCl 25 mg tablet 25 mg PO BID PRN Anxiety 07/31/23 10/22/23 10/22/23 History mirtazapine 7.5 mg tablet 7.5 mg PO BEDTIME PRN Insomnia 07/31/23 10/22/23 07/30/22 History pregabalin 50 mg capsule 50 mg PO TID 07/31/23 10/22/23 10/22/23 History doxepin 25 mg capsule 25 mg PO BEDTIME 10/22/23 10/22/23 10/21/23 History dulaglutide 3 mg/0.5 mL 3 mg subcut TU 10/22/23 10/22/23 10/22/23 History subcutaneous pen injector (Trulicity) duloxetine 60 mg capsule,delayed 60 mg PO DAILY 10/22/23 10/22/23 10/22/23 History release escitalopram oxalate 5 mg/5 mL 20 mg PO QAM 10/22/23 10/22/23 10/22/23 History oral solution insulin glargine 100 unit/mL (3 10 unit subcut BID 10/22/23 10/22/23 10/22/23 History mL) subcutaneous pen melatonin 10 mg capsule 10 mg PO BEDTIME insomnia 10/22/23 10/22/23 10/21/23 History Physical Exam Vital Signs and Narrative: Vital Signs: Last Vital Signs Temp 97.7 F 10/22/23 18:11 Pulse 83 10/22/23 18:11 Resp 18 10/22/23 18:11 BP 113/72 10/22/23 18:11 Pulse Ox 94 10/22/23 18:11 O2 Del Method Room Air 10/22/23 18:11 BMI result Body Mass Index 44.4 Constitutional - Awake and Alert, No apparent distress Eyes - PERRLA, EOMI Cardiovascular - S1S2, RRR, No edema Respiratory - Normal lung expansion, Normal respiratory effort, No respiratory distress, CTA bilaterally Gastrointestinal - NT / ND; +BS; No rebound or guarding Extremities - no calf tenderness bilaterally, no swelling Skin - Warm/Dry Neurological - Alert & oriented x3, CN II-XII in tact, 5/5 strength LUE and LLE. 1/5 strength RLE and 3/5 strength RUE Psychological - Appropriate affect Results Labs 10/22/23 17:09 10/22/23 17:09 Labs: Laboratory Results - last 24 hr 10/22/23 17:09 MCV 80.4 MCH 27.8 MCHC 34.6 RDW 14.3 Plt Count 327 MPV 10.4 Immature Gran % (Auto) 0.5 H Neut % (Auto) 72.5 Lymph % (Auto) 19.9 L [place] % (Auto) 5.5 Eos % (Auto) 0.8 Baso % (Auto) 0.8 Lymph # (Auto) 2.6 [place] # (Auto) 0.7 Eos # (Auto) 0.1 Baso # (Auto) 0.1 Abs Immat Gran (auto) 0.06 H Absolute Neuts (auto) 9.6 H Absolute Nucleated RBC 0.000 Nucleated RBC % (auto) 0.0 Anion Gap 14 Estim Creat Clear Calc 99.7 Estimated GFR > 60 Random Glucose 245 H Calcium 9.0 Magnesium 1.6 Total Bilirubin 0.7 AST 87 H ALT 48 H Alkaline Phosphatase 87 Total Protein 7.5 Albumin 3.8 Influenza Type A (PCR) NEGATIVE Influenza Type B (PCR) NEGATIVE RSV RNA Qual (PCR) NEGATIVE SARS-CoV-2 RNA (RT-PCR) NEGATIVE Imaging Radiologist's Impressions: Impressions Head CT 10/22/23 17:39 IMPRESSION: Old left parasagittal frontoparietal infarct or area of encephalomalacia and ex vacuo dilatation of the left lateral ventricle similar to July 2023 exam. No acute findings. Follow-up by MRI should be considered if clinically indicated. This critical result was discussed with Dr. Mancini at 1835 hours on 10/22/2023 . It was ascertained that the content and urgency of the report was understood at the time of direct communication. Head/Neck CTA 10/22/23 18:33 IMPRESSION: Somewhat technically limited CTA of the head and neck for multiple reasons stated above. Within this limitation, no evidence of arterial high-grade stenosis or large vessel occlusion in the head or neck. Above impression was communicated to Dr Mancini on 10/22/2023 6:49 PM Assessment and Plan (1) Post-ictal hemiplegia: Status: Acute (2) Seizure: Status: Acute Plan 47-year-old female with history of insulin-dependent type 2 diabetes, history of CVA with sequela of right-sided hemiparesis, hypertension, unspecified seizure disorder, GERD, asthma, restless legs syndrome, history of crack cocaine abuse and former smoker who quit 3 years ago admitted for further management of breakthrough seizures with postictal hemiplegia # breakthrough seizures -suspect epileptic in nature the patient does recall episode so question pseudo-seizure -head CT negative for acute intracranial abnormality which shows old CVA and encephalomalacia as well as left lateral ventricle dilatation -given 500 mg p.o. Keppra. Continue 1000 mg p.o. Keppra b.i.d. 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 # hypertension -continue lisinopril # mood disorder -continue home meds # mild intermittent asthma -albuterol p.r.n. # GERD -PPI # history of CVA with sequela of right-sided hemiparesis -continue ASA, statin # history of polysubstance abuse -U tox pending DVT prophylaxis-Lovenox Full code Patient requires inpatient stay at least 2 midnights for management of breakthrough seizure disorder with post ictal hemiplegia requiring expert consultation, close monitoring, EEG Quality Stroke Does the patient have a stroke diagnosis?: No VTE Prior VTE?: No VTE Risk Level:: Medical - moderate - high VTE Device Contraindication: Treatment Not Indicated VTE Drug Contraindication: N/A - Med Ordered
[2023-10-22 22:42] LABS: Glucose, Whole Blood 151 mg/dL (60-115)
[2023-10-22] MEDS: cloNIDine HCL 0.2 MG TABLET PO (22:50)
[2023-10-22] MEDS: Doxepin HCl 25 MG CAPSULE PO (22:50)
[2023-10-22] MEDS: Enoxaparin Sodium 40 MG/0.4 ML SYRINGE SUBCUT (22:50)
[2023-10-22] MEDS: Pregabalin 50 MG CAPSULE PO (22:50)
[2023-10-22] MEDS: Atorvastatin Calcium 40 MG TABLET PO (22:50)
[2023-10-22] MEDS: Magnesium Oxide 400 MG TABLET PO (22:50)
[2023-10-22] MEDS: levETIRAcetam 1,000 MG TABLET 1000 MG PO (22:51)
[2023-10-22] MEDS: Insulin Glargine,Hum.rec.anlog 100 UNIT/ML 10 ML VIAL 7 UNIT SUBCUT (22:51)
[2023-10-22 23:54] LABS: Ethanol < 10 mg/dL
[2023-10-23] VITALS (8 sets, daily range): BP systolic 98–134; BP diastolic 52–93; PULSE 63–82; RESP 13–20; TEMP 36.4–36.8; O2SAT 93–98; BMI 43.7
--- NOTE | 2023-10-23 | EEG_ITS ---
This is a 16-channel EEG with an EKG lead. The patient is reported awake during the tracing with some drowsiness. Background EEG rhythm is mostly low amplitude fast with some mixed theta beta rhythm. No spikes or paroxysmal tendency noted. MD GABRIEL Mendes/REID / [id number]
--- NOTE | 2023-10-23 03:58 | PC.NURSE ---
47 year old , a/o x4 ambulates with walker ( assistance). C/O multiple seizure activity today 10/22/23 to her R side of body. Pt has hx of seizures and is on Keppra for it. Pt is wheelchair /walker and has R side hemiparesis . Pt is also a diabetic and on diabetic diet. Poc was 151 @2100. CTA - old infarct, recommend MRI. 20 L AC
--- NOTE | 2023-10-23 04:02 | PC.NURSE ---
# breakthrough seizures -suspect epileptic in nature the patient does recall episode so question pseudo-seizure -head CT negative for acute intracranial abnormality which shows old CVA and encephalomalacia as well as left lateral ventricle dilatation -given 500 mg p.o. Keppra. Continue 1000 mg p.o. Keppra b.i.d. 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
[2023-10-23 05:21] LABS: MANUAL DIFF FLAG NO
[2023-10-23 05:23] LABS: Basophils Absolute Auto 0.1 X10*3/uL (0.0-0.2); Basophils Percent Auto 0.9 % (0-2); Eosinophils Absolute Auto 0.3 X10*3/uL (0.0-0.4); Eosinophils Percent Auto 2.7 % (0-4); Hematocrit 38.7 % (37.0-47.0); Hemoglobin 12.8 g/dl (12.0-16.0); Imm Gran Abs Auto 0.03 X10*3/uL (0.00-0.03); Imm Gran Pct Auto 0.3 % (0.0-0.4); Lymphocytes Absolute Auto 3.7 X10*3/uL (1.2-4.9); Lymphocytes Percent Auto 35.1 % (20-40); Mean Corpuscular HGB Conc 33.1 g/dl (31.0-35.0); Mean Corpuscular Hemoglobin 27.4 pg (27.0-33.0); Mean Corpuscular Volume 82.9 fL (80.0-98.0); Mean Platelet Volume 11.2 fL (9.4-12.3); Monocytes Absolute Auto 0.8 X10*3/uL (0.1-1.2); Monocytes Percent Auto 7.6 % (2-11); Neutrophils Absolute Auto 5.7 x10*3/uL (2.0-8.3); Neutrophils Percent Auto 53.4 % (45-73); Platelet Count 303 X10*3/uL (160-400); Red Blood Count 4.67 X10*6/uL (4.20-5.50); Red Cell Distribution Width 14.6 % (11.0-16.0); White Blood Count 10.6 X10*3/uL (4.8-10.8)
[2023-10-23 05:41] LABS: Anion Gap 13 (12-20); Blood Urea Nitrogen 13 mg/dL (9-16); Calcium 8.6 mg/dL (8.4-10.2); Carbon Dioxide 24 mmol/L (22-29); Chloride 106 mmol/L (96-108); Creatinine Clr Calc Pharmacy 95.9; Estimated Glomerular Filt Rate > 60; Glucose Random 207 mg/dL (60-115); Potassium 3.2 mmol/L (3.3-5.1); Sodium 140 mmol/L (135-145)
[2023-10-23] MEDS: Omeprazole 20 MG CAPSULE.DR PO (06:11)
[2023-10-23 07:32] LABS: Glucose, Whole Blood 170 mg/dL (60-115)
[2023-10-23] MEDS: Insulin Lispro 100 UNIT/ML 3 ML VIAL SUBCUT ×4 (07:41→21:16)
--- NOTE | 2023-10-23 09:10 | MHC.CM.PN ---
Addendum entered by Lis Cole 10/23/23 12:49: CM CONTACTED [facility], PER [employer], THE LAST ORDERS SHE CAN FIND WERE FOR [facility] REFERRAL PLACED TO THEM TO DETERMINE IF PT IS STILL ACTIVE Original Note: PT REPORTS SHE LIVES ALONE SHE HAS DAILY HAND SCUDDER SERVICES AND A VN THAT COMES 1X/WEEK TO DO HER MED BOX AND VS SHE DOES NOT KNOW THE NAME OF THE VNA PT USES A WALKER AT HCP ON FILE PCP: [facility] CM HAS ATTEMPTED TO REACH PCP OFFICE X 2 TO OBTAIN THE VNA INFORMATION HOLD TIMES EXTENSIVE CM WILL ATTEMPT CALL AGAIN LATER TODAY DCP: HOME RESUME HAND SCUDDER AND VNA PT WILL NEED S TRANSPORT
[2023-10-23] MEDS: Thiamine HCL 100 MG TABLET PO (10:23)
[2023-10-23] MEDS: Aspirin 81 MG TAB.CHEW PO (10:24)
[2023-10-23] MEDS: DULoxetine HCl 30 MG CAPSULE.DR PO (10:24)
[2023-10-23] MEDS: Magnesium Oxide 400 MG TABLET PO ×2 (10:24→21:13)
[2023-10-23] MEDS: cloNIDine HCL 0.2 MG TABLET PO ×2 (10:24→21:14)
[2023-10-23] MEDS: Pregabalin 50 MG CAPSULE PO ×3 (10:24→21:15)
[2023-10-23] MEDS: DULoxetine HCl 60 MG CAPSULE.DR PO (10:24)
[2023-10-23] MEDS: Folic Acid 1 MG TABLET PO (10:24)
[2023-10-23] MEDS: lisinopriL 40 MG TABLET PO (10:24)
[2023-10-23] MEDS: Insulin Glargine,Hum.rec.anlog 100 UNIT/ML 10 ML VIAL 7 UNIT SUBCUT ×2 (10:25→21:16)
[2023-10-23] MEDS: levETIRAcetam 1,000 MG TABLET 1000 MG PO ×2 (10:25→17:17)
[2023-10-23] MEDS: Escitalopram Oxalate 20 MG TABLET PO (10:25)
--- NOTE | 2023-10-23 10:31 | PC.NURSE ---
Addendum entered by Yamel Reyes 10/23/23 10:31: no seizure activity. seizure pads on rails. breathing well Original Note: pt en route to eeg. ate crackers well. vss. no distress.
[2023-10-23 12:12] LABS: Glucose, Whole Blood 226 mg/dL (60-115)
--- NOTE | 2023-10-23 12:18 | PM.NEUROCN ---
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 It was also reported that she had multiple seizure-like episode. After discussing with ER physician yesterday I terminated acute stroke protocol in suggested that she should be treated for seizures. She is telling me today that she had ?11 seizures?. She could not tell me what exactly happens during the seizure. Review of Systems Review of Systems: No recent cold or flu-like illness or fever PMFSH Past Medical History Medical History Transaminitis Cholecystitis, acute with cholelithiasis UTI (urinary tract infection) Asthma Restless leg syndrome Stroke GERD (gastroesophageal reflux disease) Anxiety Depression Insomnia Neuropathy Seizure Hypertension Insulin dependent type 2 diabetes mellitus Morbid obesity Hx of completed stroke Family History Family History Mother Diabetes Father Diabetes Alcoholism Surgical History Surgical History History of laparoscopic cholecystectomy (04/05/22) History of Social History Social History Household Members: None Housing: Apartment Do you presently have visiting nurse or other home services: Yes (guest house manager, vna) Alcohol intake: never Patient Tobacco Use Status: Former Tobacco user Quit Date: 3 yrs ago Substance Use Type: Crack/Cocaine Advance Directives: Yes Advance Directives on File: Yes Advance Directives Date on File: 04/02/22 Nutrition Risks: No Nutritional Risk service: No Current occupational status: unemployed Meds Allergies Allergy/AdvReac Type Severity Reaction Status Date / Time tomato [TOMATO] Allergy Unknown RASH Verified 07/31/23 16:20 Active Medications: Current Medications Acetaminophen (Acetaminophen 325 Mg Tablet) 650 mg PO Q6H PRN PRN Reason: Pain, Mild (Pain Scale 1-3) Albuterol Sulfate (Albuterol Sulfate 90 Mcg 8 Gm Inhaler) 2 puff INHALE Q6H PRN PRN Reason: wheezing Aspirin (Aspirin 81 Mg Tab.Chew) 81 mg PO DAILY [facility] Last Admin: 10/23/23 10:24 Dose: 81 mg Atorvastatin Calcium (Atorvastatin Calcium 40 Mg Tablet) 40 mg PO BEDTIME [facility] Last Admin: 10/22/23 22:50 Dose: 40 mg Clonidine HCl (Clonidine Hcl 0.2 Mg Tablet) 0.2 mg PO BID [facility]; Protocol Last Admin: 10/23/23 10:24 Dose: 0.2 mg Cyclobenzaprine HCl (Cyclobenzaprine Hcl 10 Mg Tablet) 10 mg PO BID PRN PRN Reason: muscle spasm Dextrose (Dextrose 50 % 25 Gm/50 Ml Syringe) 25 gm IVPUSH Q15M PRN; Protocol PRN Reason: per Hypoglycemia Standing Ord. Doxepin HCl (Doxepin Hcl 25 Mg Capsule) 25 mg PO BEDTIME [facility] Last Admin: 10/22/23 22:50 Dose: 25 mg Duloxetine HCl (Duloxetine Hcl 30 Mg Capsule.) 30 mg PO DAILY [facility] Last Admin: 10/23/23 10:24 Dose: 30 mg Duloxetine HCl (Duloxetine Hcl 60 Mg Capsule.) 60 mg PO DAILY [facility] Last Admin: 10/23/23 10:24 Dose: 60 mg Enoxaparin Sodium (Enoxaparin Sodium 40 Mg/0.4 Ml Syringe) 40 mg SUBCUT Q24H [facility] Last Admin: 10/22/23 22:50 Dose: 40 mg Escitalopram Oxalate (Escitalopram Oxalate 20 Mg Tablet) 20 mg PO DAILY [facility] Last Admin: 10/23/23 10:25 Dose: 20 mg Folic Acid (Folic Acid 1 Mg Tablet) 1 mg PO DAILY [facility] Last Admin: 10/23/23 10:24 Dose: 1 mg Glucose (Glucose Gel 15 Gm Gel..Gram.) 15 gm PO Q15M PRN; Protocol PRN Reason: per Hypoglycemia Standing Ord. Hydroxyzine HCl (Hydroxyzine Hcl 25 Mg Tablet) 25 mg PO BID PRN PRN Reason: Anxiety Insulin Glargine (Insulin Glargine,Hum.Rec.Anlog 100 Unit/Ml 10 Ml Vial) 7 unit SUBCUT BID [facility] Last Admin: 10/23/23 10:25 Dose: 7 unit Insulin Human Lispro (Insulin Lispro 100 Unit/Ml 3 Ml Vial) 0 unit SUBCUT QIDACHS [facility]; Protocol Last Admin: 10/23/23 07:41 Dose: 2 unit Levetiracetam (Levetiracetam 1,000 Mg Tablet) 1,000 mg PO BID@0900,1700 [facility] Last Admin: 10/23/23 10:25 Dose: 1,000 mg Lisinopril (Lisinopril 40 Mg Tablet) 40 mg PO DAILY [facility]; Protocol Last Admin: 10/23/23 10:24 Dose: 40 mg Magnesium Oxide (Magnesium Oxide 400 Mg Tablet) 400 mg PO BID [facility] Last Admin: 10/23/23 10:24 Dose: 400 mg Melatonin (Melatonin 3 Mg Tablet) 9 mg PO BEDTIME [facility] Mirtazapine (Mirtazapine 7.5 Mg Tablet) 7.5 mg PO BEDTIME PRN PRN Reason: Insomnia Omeprazole (Omeprazole 20 Mg Capsule.Dr) 20 mg PO DAILY@0630 [facility] Last Admin: 10/23/23 06:11 Dose: 20 mg Ondansetron HCl (Ondansetron Hcl 4 Mg/2 Ml Vial) 4 mg IVPUSH Q8H PRN PRN Reason: Nausea and Vomiting Pregabalin (Pregabalin 50 Mg Capsule) 50 mg PO TID [facility] Last Admin: 10/23/23 10:24 Dose: 50 mg Senna (Sennosides 8.6 Mg Tablet) 17.2 mg PO BEDTIME PRN PRN Reason: Constipation Sodium Chloride (0.9 % Sodium Chloride Flush 3 Ml Syringe) 3 ml IVFLUSH QSHIFT [facility] Last Admin: 10/23/23 08:06 Dose: Not Given Thiamine HCl (Thiamine Hcl 100 Mg Tablet) 100 mg PO DAILY [facility] Last Admin: 10/23/23 10:23 Dose: 100 mg Home Medications Medication Instructions Recorded Confirmed Last Taken Type blood sugar diagnostic (FreeStyle #10 ea 11/01/21 04/17/22 Unknown History Lite Strips) blood-glucose meter (FreeStyle #1 ea 11/01/21 04/17/22 Unknown History [place] Lite kit) clonidine HCl 0.2 mg tablet 0.2 mg PO BID 11/01/21 10/22/23 10/22/23 History duloxetine 30 mg capsule,delayed 30 mg PO DAILY 11/01/21 10/22/23 10/22/23 History release folic acid 1 mg tablet 1 mg PO DAILY 11/01/21 10/22/23 10/22/23 History levetiracetam 1,000 mg tablet 1,000 mg PO BID@0900,1700 11/01/21 10/22/23 10/22/23 History lisinopril 40 mg tablet 40 mg PO DAILY 11/01/21 10/22/23 10/22/23 History magnesium oxide 400 mg (241.3 mg 400 mg PO BID 11/01/21 10/22/23 10/22/23 History magnesium) tablet metformin 1,000 mg tablet 1,000 mg PO BIDWM 11/01/21 10/22/23 10/22/23 History omeprazole 20 mg capsule,delayed 20 mg PO DAILY@0630 11/01/21 10/22/23 10/22/23 History release pen needle, diabetic 31 gauge x #50 ea 11/01/21 04/17/22 Unknown History 10/04 (Sure Comfort Pen Needle) thiamine HCl (vitamin B1) 100 mg 100 mg PO DAILY 11/01/21 10/22/23 10/22/23 History tablet cyclobenzaprine 10 mg tablet 1 tab PO BID PRN muscle spasm 04/02/22 10/22/23 04/01/22 History insulin lispro 100 unit/mL See Protocol subcut TIDAC 04/02/22 10/22/23 10/22/23 History subcutaneous pen albuterol sulfate 90 mcg/actuation 2 puff inhalation Q6H PRN wheezing 07/31/23 10/22/23 Unknown History aerosol inhaler (Ventolin HFA) hydroxyzine HCl 25 mg tablet 25 mg PO BID PRN Anxiety 07/31/23 10/22/23 10/22/23 History mirtazapine 7.5 mg tablet 7.5 mg PO BEDTIME PRN Insomnia 07/31/23 10/22/23 07/30/22 History pregabalin 50 mg capsule 50 mg PO TID 07/31/23 10/22/23 10/22/23 History doxepin 25 mg capsule 25 mg PO BEDTIME 10/22/23 10/22/23 10/21/23 History dulaglutide 3 mg/0.5 mL 3 mg subcut TU 10/22/23 10/22/23 10/22/23 History subcutaneous pen injector (Trulicity) duloxetine 60 mg capsule,delayed 60 mg PO DAILY 10/22/23 10/22/23 10/22/23 History release escitalopram oxalate 5 mg/5 mL 20 mg PO QAM 10/22/23 10/22/23 10/22/23 History oral solution insulin glargine 100 unit/mL (3 10 unit subcut BID 10/22/23 10/22/23 10/22/23 History mL) subcutaneous pen melatonin 10 mg capsule 10 mg PO BEDTIME insomnia 10/22/23 10/22/23 10/21/23 History Physical Exam Vital Signs: Vital Signs: Last Vital Signs Temp 97.9 F 10/23/23 03:00 Pulse 82 10/23/23 10:00 Resp 18 10/23/23 10:00 BP 112/60 10/23/23 10:00 Pulse Ox 98 10/23/23 10:00 O2 Del Method Room Air 10/23/23 10:00 BMI result Body Mass Index 44.4 Neuro: Other: She is alert and awake with normal spontaneity of speech fluency comprehension and affect. Face is symmetrical. There is mild right-sided weakness with leg more than arm affected. Right plantar is extensor. Results Labs 10/23/23 04:13 10/23/23 04:13 Labs: Short CBC 10/22/23 10/23/23 Range/Units 17:09 04:13 WBC 13.2 H 10.6 (4.8-10.8) X10*3/uL Hgb 14.2 12.8 (12.0-16.0) g/dl Hct 41.0 38.7 (37.0-47.0) % Plt Count 327 303 (160-400) X10*3/uL BMP 10/22/23 10/23/23 17:09 04:13 Sodium 141 140 Potassium 3.5 3.2 L Chloride 106 106 Carbon Dioxide 25 24 BUN 10 13 Creatinine 0.74 0.77 Calcium 9.0 8.6 Liver Function 10/22/23 Range/Units 17:09 Total Bilirubin 0.7 (0.0-1.0) mg/dL AST 87 H (5-31) U/L ALT 48 H (0-31) U/L Alkaline Phosphatase 87 (39-117) U/L Albumin 3.8 (3.5-5.0) g/dL Head CT revealed chronic left frontoparietal parasagittal ischemic infarction. CTA did not reveal any obvious abnormality. Assessment and Plan (1) Seizure disorder: Status: Acute 47 years old woman with chronic left frontoparietal parasagittal ischemic cerebral infarction and history of cocaine and marijuana abuse, came to hospital change in mental status and seizure-like episodes. Her present clinical situation was likely due to multiple seizures and postictal state. She has now recovered from most of it. My recommendation is to increase her dose of levetiracetam to 1500 mg twice a day. Otherwise she should be advised to not drink alcohol and not use any other drug of abuse including marijuana or cocaine. She should not drive and avoid activities that could put her life in danger such as sitting in a soaking tub alone or swimming alone. Procedures Date of Service Date of Service: 10/23/23
[2023-10-23] MEDS: Potassium Chloride Packet 20 MEQ PACKET PO (13:07)
[2023-10-23 13:24] LABS: Amphetamine Screen Urine Not Detected (Not Detect); Barbiturates, Urine Not Detected (Not Detect); Benzodiazepines Screen Urine Not Detected (Not Detect); Cannabinoid Screen Urine POSITIVE (Not Detect); Cocaine Screen Urine POSITIVE (Not Detect); Fentanyl, urine Not Detected (Not Detect); Opiate Screen Urine Not Detected (Not Detect); Phencyclidine Screen Urine Not Detected (Not Detect)
--- NOTE | 2023-10-23 15:42 | P.PNIM_ITS ---
Subjective Subjective Date of Service: 10/23/23 Interval History: breakthrough seizures Review of Systems No new seizure episode today Patient still feels generalized weak Physical Exam 2 Vital Signs: Vital Signs: Last Vital Signs Temp 98 F 10/23/23 13:09 Pulse 74 10/23/23 13:09 Resp 18 10/23/23 13:09 BP 108/70 10/23/23 13:09 Pulse Ox 98 10/23/23 13:09 O2 Del Method Room Air 10/23/23 13:09 BMI result Body Mass Index 44.4 Appearance: Alert.? Oriented X3.? cvs: rrr, [id number] , no murmur res: clear to auscultation ,no rhonchii or wheezing abd: no rebound or guarding ,nt, bs present. ext pulses present , no cyanosis . neuro: axo3 , rest neurologic exam unchanged from h&P. Objective Data Active Medications Acetaminophen (Acetaminophen 325 Mg Tablet) 650 mg PO Q6H PRN PRN Reason: Pain, Mild (Pain Scale 1-3) Albuterol Sulfate (Albuterol Sulfate 90 Mcg 8 Gm Inhaler) 2 puff INHALE Q6H PRN PRN Reason: wheezing Aspirin (Aspirin 81 Mg Tab.Chew) 81 mg PO DAILY [facility] Last Admin: 10/23/23 10:24 Dose: 81 mg Documented By: FER Atorvastatin Calcium (Atorvastatin Calcium 40 Mg Tablet) 40 mg PO BEDTIME [facility] Last Admin: 10/22/23 22:50 Dose: 40 mg Documented By: KATHLEEN Clonidine HCl (Clonidine Hcl 0.2 Mg Tablet) 0.2 mg PO BID [facility]; Protocol Last Admin: 10/23/23 10:24 Dose: 0.2 mg Documented By: FER Cyclobenzaprine HCl (Cyclobenzaprine Hcl 10 Mg Tablet) 10 mg PO BID PRN PRN Reason: muscle spasm Dextrose (Dextrose 50 % 25 Gm/50 Ml Syringe) 25 gm IVPUSH Q15M PRN; Protocol PRN Reason: per Hypoglycemia Standing Ord. Doxepin HCl (Doxepin Hcl 25 Mg Capsule) 25 mg PO BEDTIME [facility] Last Admin: 10/22/23 22:50 Dose: 25 mg Documented By: KATHLEEN Duloxetine HCl (Duloxetine Hcl 30 Mg Capsule.Dr) 30 mg PO DAILY [facility] Last Admin: 10/23/23 10:24 Dose: 30 mg Documented By: FER Duloxetine HCl (Duloxetine Hcl 60 Mg Capsule.Dr) 60 mg PO DAILY [facility] Last Admin: 10/23/23 10:24 Dose: 60 mg Documented By: FER Enoxaparin Sodium (Enoxaparin Sodium 40 Mg/0.4 Ml Syringe) 40 mg SUBCUT Q24H [facility] Last Admin: 10/22/23 22:50 Dose: 40 mg Documented By: KATHLEEN Escitalopram Oxalate (Escitalopram Oxalate 20 Mg Tablet) 20 mg PO DAILY [facility] Last Admin: 10/23/23 10:25 Dose: 20 mg Documented By: FER Folic Acid (Folic Acid 1 Mg Tablet) 1 mg PO DAILY [facility] Last Admin: 10/23/23 10:24 Dose: 1 mg Documented By: FER Glucose (Glucose Gel 15 Gm Gel..Gram.) 15 gm PO Q15M PRN; Protocol PRN Reason: per Hypoglycemia Standing Ord. Hydroxyzine HCl (Hydroxyzine Hcl 25 Mg Tablet) 25 mg PO BID PRN PRN Reason: Anxiety Insulin Glargine (Insulin Glargine,Hum.Rec.Anlog 100 Unit/Ml 10 Ml Vial) 7 unit SUBCUT BID [facility] Last Admin: 10/23/23 10:25 Dose: 7 unit Documented By: FER Insulin Human Lispro (Insulin Lispro 100 Unit/Ml 3 Ml Vial) 0 unit SUBCUT QIDACHS [facility]; Protocol Last Admin: 10/23/23 13:07 Dose: 4 unit Documented By: FER Levetiracetam (Levetiracetam 1,000 Mg Tablet) 1,000 mg PO BID@0900,1700 [facility] Last Admin: 10/23/23 10:25 Dose: 1,000 mg Documented By: FER Lisinopril (Lisinopril 40 Mg Tablet) 40 mg PO DAILY [facility]; Protocol Last Admin: 10/23/23 10:24 Dose: 40 mg Documented By: FER Magnesium Oxide (Magnesium Oxide 400 Mg Tablet) 400 mg PO BID [facility] Last Admin: 10/23/23 10:24 Dose: 400 mg Documented By: FER Melatonin (Melatonin 3 Mg Tablet) 9 mg PO BEDTIME [facility] Mirtazapine (Mirtazapine 7.5 Mg Tablet) 7.5 mg PO BEDTIME PRN PRN Reason: Insomnia Omeprazole (Omeprazole 20 Mg Capsule.) 20 mg PO DAILY@0630 [facility] Last Admin: 10/23/23 06:11 Dose: 20 mg Documented By: KATHLEEN Ondansetron HCl (Ondansetron Hcl 4 Mg/2 Ml Vial) 4 mg IVPUSH Q8H PRN PRN Reason: Nausea and Vomiting Pregabalin (Pregabalin 50 Mg Capsule) 50 mg PO TID [facility] Last Admin: 10/23/23 10:24 Dose: 50 mg Documented By: FER Senna (Sennosides 8.6 Mg Tablet) 17.2 mg PO BEDTIME PRN PRN Reason: Constipation Sodium Chloride (0.9 % Sodium Chloride Flush 3 Ml Syringe) 3 ml IVFLUSH QSHIFT [facility] Last Admin: 10/23/23 08:06 Dose: Not Given Documented By: NAHOMY Non-Admin Reason: IV Running Thiamine HCl (Thiamine Hcl 100 Mg Tablet) 100 mg PO DAILY [facility] Last Admin: 10/23/23 10:23 Dose: 100 mg Documented By: FER Labs 10/23/23 04:13 10/23/23 04:13 Labs: Laboratory Results - last 24 hr 10/22/23 10/22/23 10/22/23 17:09 22:38 23:29 MCV 80.4 MCH 27.8 MCHC 34.6 RDW 14.3 Plt Count 327 MPV 10.4 Immature Gran % (Auto) 0.5 H Neut % (Auto) 72.5 Lymph % (Auto) 19.9 L [place] % (Auto) 5.5 Eos % (Auto) 0.8 Baso % (Auto) 0.8 Lymph # (Auto) 2.6 [place] # (Auto) 0.7 Eos # (Auto) 0.1 Baso # (Auto) 0.1 Abs Immat Gran (auto) 0.06 H Absolute Neuts (auto) 9.6 H Absolute Nucleated RBC 0.000 Nucleated RBC % (auto) 0.0 Anion Gap 14 Estim Creat Clear Calc 99.7 Estimated GFR > 60 POC Glucose 151 H Random Glucose 245 H Calcium 9.0 Magnesium 1.6 Total Bilirubin 0.7 AST 87 H ALT 48 H Alkaline Phosphatase 87 Total Protein 7.5 Albumin 3.8 Urine Opiates Screen Urine Fentanyl Screen Ur Barbiturates Screen Ur Phencyclidine Scrn Ur Amphetamines Screen U Benzodiazepines Scrn Urine Cocaine Screen U Marijuana (THC) Screen Ethyl Alcohol < 10 Influenza Type A (PCR) NEGATIVE Influenza Type B (PCR) NEGATIVE RSV RNA Qual (PCR) NEGATIVE SARS-CoV-2 RNA (RT-PCR) NEGATIVE 10/23/23 10/23/23 10/23/23 04:13 07:29 12:09 MCV 82.9 MCH 27.4 MCHC 33.1 RDW 14.6 Plt Count 303 MPV 11.2 Immature Gran % (Auto) 0.3 Neut % (Auto) 53.4 Lymph % (Auto) 35.1 [place] % (Auto) 7.6 Eos % (Auto) 2.7 Baso % (Auto) 0.9 Lymph # (Auto) 3.7 [place] # (Auto) 0.8 Eos # (Auto) 0.3 Baso # (Auto) 0.1 Abs Immat Gran (auto) 0.03 Absolute Neuts (auto) 5.7 Absolute Nucleated RBC 0.000 Nucleated RBC % (auto) 0.0 Anion Gap 13 Estim Creat Clear Calc 95.9 Estimated GFR > 60 POC Glucose 170 H 226 H Random Glucose 207 H Calcium 8.6 Magnesium Total Bilirubin AST ALT Alkaline Phosphatase Total Protein Albumin Urine Opiates Screen Urine Fentanyl Screen Ur Barbiturates Screen Ur Phencyclidine Scrn Ur Amphetamines Screen U Benzodiazepines Scrn Urine Cocaine Screen U Marijuana (THC) Screen Ethyl Alcohol Influenza Type A (PCR) Influenza Type B (PCR) RSV RNA Qual (PCR) SARS-CoV-2 RNA (RT-PCR) 10/23/23 13:12 MCV MCH MCHC RDW Plt Count MPV Immature Gran % (Auto) Neut % (Auto) Lymph % (Auto) [place] % (Auto) Eos % (Auto) Baso % (Auto) Lymph # (Auto) [place] # (Auto) Eos # (Auto) Baso # (Auto) Abs Immat Gran (auto) Absolute Neuts (auto) Absolute Nucleated RBC Nucleated RBC % (auto) Anion Gap Estim Creat Clear Calc Estimated GFR POC Glucose Random Glucose Calcium Magnesium Total Bilirubin AST ALT Alkaline Phosphatase Total Protein Albumin Urine Opiates Screen Not Detected Urine Fentanyl Screen Not Detected Ur Barbiturates Screen Not Detected Ur Phencyclidine Scrn Not Detected Ur Amphetamines Screen Not Detected U Benzodiazepines Scrn Not Detected Urine Cocaine Screen POSITIVE H U Marijuana (THC) Screen POSITIVE H Ethyl Alcohol Influenza Type A (PCR) Influenza Type B (PCR) RSV RNA Qual (PCR) SARS-CoV-2 RNA (RT-PCR) Assessment and Plan (1) Cholecystitis, acute with cholelithiasis: Status: Inactive (2) Transaminitis: Status: Inactive Plan A 47years old lady with PMH of CVA, diabetes, hypertension, seizure, morbid obesity, depression among others who presents to the hospital with liver right upper quadrant abdominal pain. breakthrough seizures-suspect epileptic in nature the patient does recall episode so question pseudo-seizure head CT negative for acute intracranial abnormality no new episode utox positive for cocaine /marijuna plan: Continue 1000 mg p.o. 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
--- NOTE | 2023-10-23 15:52 | MHC.RECOVRN ---
Met with pt in ED13 after consult placed to Addiction Medicine for cocaine use. Pt had presented to the ED reporting seizures and chest tightness. Upon evaluation, pt admitted for postictal hemiplegia as well as seizure. Pt laying in bed, asleep, wakes to voice. Pt denies current cocaine use, reports last use 6 years ago. Pt reports marijuana use, surprised to hear UDS positive for cocaine. Educated pt on fentanyl and risk of overdose when present in other substances. Pt engaged during education, agreeable to resources and fentanyl test strips, which were provided. Pt denies questions or concerns for t/w. Discussed with Alena Ford APRN.
[2023-10-23 16:05] LABS: Appearance Urine Turbid; Color Urine Dark Yellow; Glucose Urine UA 250 mg/dL (Negative); Leukocyte Esterase Urine Moderate (2+) (Negative); Nitrite Urine Negative (Negative); PH 5.5 (5.0-9.0); Specific Gravity - Urine >= 1.030 (1.005-1.025); UMIC TRIGGER UACC YES; Urine Blood Trace (Negative); Urine Ketones Trace mg/dL (Negative); Urine Protein 30 (1+) mg/dL (Neg-Trace)
[2023-10-23 16:17] LABS: Bacteria Urine 4+ (None Seen); RBC Urine 0-2 /HPF (0-2); Squamous Epithelial Cell Urine >20 /HPF (0-2); UACC Culture Trigger YES; WBC Urine >50 /HPF (0-5)
[2023-10-23 18:39] LABS: Glucose, Whole Blood 291 mg/dL (60-115)
[2023-10-23 20:39] LABS: Glucose, Whole Blood 160 mg/dL (60-115)
[2023-10-23] MEDS: Doxepin HCl 25 MG CAPSULE PO (21:13)
[2023-10-23] MEDS: Melatonin 3 MG TABLET 9 MG PO (21:13)
[2023-10-23] MEDS: Atorvastatin Calcium 40 MG TABLET PO (21:14)
[2023-10-24] MEDS: Enoxaparin Sodium 40 MG/0.4 ML SYRINGE SUBCUT (00:32)
[2023-10-24] MEDS: 0.9 % Sodium Chloride Flush 3 ML SYRINGE IVFLUSH (00:35)
[2023-10-24 04:00] VITALS: BP 119/74; PULSE 67; RESP 20; TEMP 36.4; O2SAT 96
[2023-10-24] MEDS: Omeprazole 20 MG CAPSULE.DR PO (06:39)
[2023-10-24 07:31] LABS: Glucose, Whole Blood 206 mg/dL (60-115)
[2023-10-24 07:46] VITALS: BP 118/67; PULSE 65; RESP 20; TEMP 36.8; O2SAT 96
[2023-10-24] MEDS: Insulin Lispro 100 UNIT/ML 3 ML VIAL SUBCUT ×2 (08:08→11:32)
[2023-10-24] MEDS: Magnesium Oxide 400 MG TABLET PO (08:09)
[2023-10-24] MEDS: Aspirin 81 MG TAB.CHEW PO (08:09)
[2023-10-24] MEDS: DULoxetine HCl 30 MG CAPSULE.DR PO (08:09)
[2023-10-24] MEDS: Folic Acid 1 MG TABLET PO (08:09)
[2023-10-24] MEDS: Pregabalin 50 MG CAPSULE PO (08:09)
[2023-10-24] MEDS: levETIRAcetam 1,000 MG TABLET 1000 MG PO (08:09)
[2023-10-24] MEDS: lisinopriL 40 MG TABLET PO (08:09)
[2023-10-24] MEDS: DULoxetine HCl 60 MG CAPSULE.DR PO (08:09)
[2023-10-24] MEDS: Insulin Glargine,Hum.rec.anlog 100 UNIT/ML 10 ML VIAL 7 UNIT SUBCUT (08:09)
[2023-10-24] MEDS: Thiamine HCL 100 MG TABLET PO (08:09)
[2023-10-24] MEDS: cloNIDine HCL 0.2 MG TABLET PO (08:10)
[2023-10-24] MEDS: Escitalopram Oxalate 20 MG TABLET PO (08:10)
--- NOTE | 2023-10-24 11:14 | P.DS_ITS ---
DS: Providers Provider Date of Service: 10/24/23 Date of admission: 10/22/23 22:03 Date of discharge: 10/24/23 Primary care physician: Cathy Gerber NP Consults: 10/22/23 22:07 Consult to Neurology Routine Consulting Provider: [facility] Reason for consultation: seizure? Pseudoseizure? 10/22/23 22:46 Addiction Medicine Routine Consulting Provider: Addiction Covering Reason for consultation: crack cocaine abuse Attending physician on discharge: Berry Thorne Discharging clinician: Berry Thorne DS: Diagnosis Discharge Diagnosis (1) Cholecystitis, acute with cholelithiasis: Status: Inactive (2) Transaminitis: Status: Inactive DS: Summary Hospital Course Hospital Course: 47-year-old female with history of insulin-dependent type 2 diabetes, history of CVA with sequela of right-sided hemiparesis, hypertension, unspecified seizure disorder, GERD, asthma, restless legs syndrome, history of crack cocaine abuse and former smoker who quit 3 years ago presents to the ED earlier today following reported 11 [id number] tonic-clonic seizures. She states she was in the kitchen cooking when she felt seizures coming on and recalls shaking for about 1 minute with repeat seizures happening about every 6-7 minutes. She states she did not talk during the episodes but does recall the instance. She denies head injury. She states her [employer] witnessed the seizures. States last seizure to her knowledge prior to this episode was 2 years ago. She does not follow with Neurology and reports compliance with her antiseizure medications. She denies any tongue bite. She ambulates with a walker at baseline due to right-sided hemiparesis following CVA in 2019. Following the seizure she reports increased weakness on the right upper extremity. In the ED, vital signs stable. There is mild leukocytosis of 13.2. Renal function and electrolyte levels normal. Lactic acid was not checked. CK was not checked. Glucose 151. AST 87, ALT 48. Denies alcohol use, illicit drug use, or ongoing cigarette smoking. Head CT shows 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 CTA head/neck somewhat limited but does not appear to have evidence of high-grade stenosis or large vessel occlusion. ED did discuss case with Neurology who feels right upper extremity weakness is likely a post ictal hemiplegia rather than CVA. Patient will be for further management of breakthrough seizures with postictal hemiplegia. Hospital course: Patient was admitted for breakthrough seizure-CT head/CTA reviewed with neurology -ch left frontoparietal parasagittal ischemic infarction, urine toxicology positive(coacine /marijuana), CTA negative, seen by Neurology patient was strongly advised for abstain from substance use and in addition Keppra were adjusted to 1500 mg p.o. b.i.d.She should not drive and avoid activities that could put her life in danger such as sitting in a soaking tub alone or swimming alone.patient weakness seems to be improved significantly,PT eval . Hypokalemia: Repleted and resolved. mild elevated liver enzymes ( chronic since at least 2021): also has ch subsatnce use : lft's seems similar range .moniter lft's outpatient and further workup outpatient with pcp. plan: Monitor BMP, LFT outpatient-moniter lft's outpatient and further workup outpatient with pcp. keppra changed to 1500 mg po bid. follow up outpatient with pcp. Above management discussed with the patient in detail length she understand and in agreement with the plan, time spent 40 minute Time Attestation Total time managing care of this patient today: 40 mintues. Discharge Coordination Time (in mins): 40 min Quality: Safe Use of Opioids Does Pt have an Active Cancer Diagnosis on the Problem List?: No Quality: Stroke Does the patient have a stroke diagnosis?: No Physical Exam Vital Signs: Vital Signs: Last Vital Signs Temp 98.3 F 10/24/23 07:46 Pulse 65 10/24/23 07:46 Resp 20 10/24/23 07:46 BP 118/67 10/24/23 07:46 Pulse Ox 96 10/24/23 07:46 O2 Del Method Room Air 10/24/23 07:46 BMI result Body Mass Index 43.7 Constitutional : Awake, interactive, not in distress Neck : Normal inspection, Supple Cardiovascular : [id number], no lower extremity edema Respiratory : bilateral air entry fair , no crackles, wheezes or rhonchi Gastrointestinal: soft, lax, Normal bowel sounds, Non tender Skin : Warm, Dry Neurological : Alert & oriented x3, right sided mild weakness(ch as per patient), CN 2-12 within normal DS: Data Data Completed and Pending Completed studies during hospitalization [Text1]: Procedures Resection of Gallbladder, Percutaneous Endoscopic Approach (04/02/22) Labs on day of discharge: Laboratory Results - last 24 hr 10/23/23 10/23/23 10/23/23 12:09 13:12 15:51 POC Glucose 226 H Urine Color Dark Yellow Urine Appearance Turbid Urine pH 5.5 Ur Specific [place] >= 1.030 H Urine Protein 30 (1+) H Urine Glucose (UA) 250 H Urine Ketones Trace Urine Blood Trace H Urine Nitrite Negative Ur Leukocyte Esterase Moderate (2+) H Urine RBC 0-2 Urine WBC >50 H Ur Squamous Epith Cells >20 Urine Bacteria 4+ Hyaline Casts 3-5 Urine Opiates Screen Not Detected Urine Fentanyl Screen Not Detected Ur Barbiturates Screen Not Detected Ur Phencyclidine Scrn Not Detected Ur Amphetamines Screen Not Detected U Benzodiazepines Scrn Not Detected Urine Cocaine Screen POSITIVE H U Marijuana (THC) Screen POSITIVE H 10/23/23 10/23/23 10/24/23 18:35 20:36 07:18 POC Glucose 291 H 160 H 206 H Urine Color Urine Appearance Urine pH Ur Specific [place] Urine Protein Urine Glucose (UA) Urine Ketones Urine Blood Urine Nitrite Ur Leukocyte Esterase Urine RBC Urine WBC Ur Squamous Epith Cells Urine Bacteria Hyaline Casts Urine Opiates Screen Urine Fentanyl Screen Ur Barbiturates Screen Ur Phencyclidine Scrn Ur Amphetamines Screen U Benzodiazepines Scrn Urine Cocaine Screen U Marijuana (THC) Screen Imaging Chest x-ray: Radiologist's impression: ITS Impressions Head CT 10/22/23 17:39 IMPRESSION: Old left parasagittal frontoparietal infarct or area of encephalomalacia and ex vacuo dilatation of the left lateral ventricle similar to July 2023 exam. No acute findings. Follow-up by MRI should be considered if clinically indicated. Head/Neck CTA 10/22/23 18:33 IMPRESSION: Somewhat technically limited CTA of the head and neck for multiple reasons stated above. Within this limitation, no evidence of arterial high-grade stenosis or large vessel occlusion in the head or neck. Above impression was communicated to Dr Mancini on 10/22/2023 6:49 PM Discharge Plan Discharge Anticipated Discharge Date/Time: 10/24/23 11:05 Patient Disposition: Home Health Service Discharge Diagnosis: breakthrough seizures Referrals: Cathy Gerber FRYER OPERATOR [Primary Care Provider] - 1 Week Discharge Medications: Continued cyclobenzaprine 10 mg tablet 1 tab PO BID PRN (Reason: muscle spasm) insulin lispro 100 unit/mL insulin pen See Protocol subcut TIDAC Protocol: Insulin Correction Scale Less than or equal to 110 ---- Give (units): 0 111 to 150 Give (units): 0 151 to 200 Give (units): 2 201 to 250 Give (units): 4 251 to 300 Give (units): 6 301 to 350 Give (units): 8 Greater than 350 Give (units): 10 Call MD if Blood Glucose > : 350 hydroxyzine HCl 25 mg tablet 25 mg PO BID PRN (Reason: Anxiety) albuterol sulfate [Ventolin HFA] 90 mcg/actuation HFA aerosol inhaler 2 puff INHALATION Q6H PRN (Reason: wheezing) mirtazapine 7.5 mg tablet 7.5 mg PO BEDTIME PRN (Reason: Insomnia) pregabalin 50 mg capsule 50 mg PO TID atorvastatin 40 mg Tablet 40 mg PO BEDTIME Qty: 90 0RF aspirin 81 mg Tablet,Chewable 81 mg PO DAILY Qty: 90 0RF doxepin 25 mg capsule 25 mg PO BEDTIME escitalopram oxalate 5 mg/5 mL solution 20 mg PO QAM duloxetine 60 mg capsule,delayed release(DR/EC) 60 mg PO DAILY Trulicity 3 mg/0.5 mL pen injector 3 mg subcut TU insulin glargine 100 unit/mL (3 mL) insulin pen 10 unit SUBCUT BID melatonin 10 mg capsule 10 mg PO BEDTIME omeprazole 20 mg capsule,delayed release(DR/EC) 20 mg PO DAILY@0630 (DME) blood-glucose meter [[employer] [place] Lite] Kit See Rx Instructions Not Applicable DAILY Qty: 1 Rx Instructions: As directed thiamine HCl (vitamin B1) 100 mg tablet 100 mg PO DAILY (DME) FreeStyle Lite Strips Strip See Rx Instructions Not Applicable TID Qty: 10 Rx Instructions: As directed duloxetine 30 mg capsule,delayed release(DR/EC) 30 mg PO DAILY magnesium oxide 400 mg (241.3 mg magnesium) tablet 400 mg PO BID folic acid 1 mg tablet 1 mg PO DAILY clonidine HCl 0.2 mg tablet 0.2 mg PO BID lisinopril 40 mg tablet 40 mg PO DAILY metformin 1,000 mg tablet 1,000 mg PO BIDWM (DME) pen needle, diabetic [Sure Comfort Pen Needle] 31 gauge x 3/16 needle See Rx Instructions .ROUTE BID Qty: 50 Rx Instructions: As directed Changed levetiracetam 1,000 mg tablet 1,500 mg PO BID@0900,1700 Qty: 120 0RF Discharge Orders: Discharge Order (Routine); Ordered 10/24/23 Ordered By: Berry Thorne Diet: Advance to usual diet Activity on Discharge: As tolerated Stand Alone Forms: Patient Portal Discharge page Print Language: Tristanian Care Plan Goals: Patient was admitted for breakthrough seizure-CT head negative, urine toxicology positive, CTA negative, seen by Neurology patient was strongly advised for abstain from substance use and in addition Keppra were adjusted to 1500 mg p.o. b.i.d.She should not drive and avoid activities that could put her life in danger such as sitting in a soaking tub alone or swimming alone.patient weakness seems to be improved significantly,PT eval Health Concerns: keppra changed to 1500 mg po bid. follow up outpatient with pcp. Plan of Treatment: as above. Assessment: as above.
[2023-10-24 11:21] LABS: Glucose, Whole Blood 259 mg/dL (60-115)
--- NOTE | 2023-10-24 11:23 | MHC.CM.PN ---
Patient has been medically cleared for dc to home today, self care.
[2023-10-24 11:42] VITALS: BP 122/62; PULSE 65; RESP 18; TEMP 36.3; O2SAT 97
--- NOTE | 2023-10-24 12:17 | MHC.CM.PN ---
Patient will dc to home today at 3:30PM via [facility].
[2023-10-24 12:53] LABS: Potassium 3.6 mmol/L (3.3-5.1)
[2023-10-24 15:24] VITALS: BP 141/99; PULSE 64; RESP 16; TEMP 36.5; O2SAT 97
== END 2023-10-24 16:51 | disposition home health service (06) | DRG 53 ==
LOC: HO.ED 21:49 → HO.EDOVER 22:09 → HO.IMC 10-23 19:23
PROVIDERS: Physician Assistant Medical; Admitting Provider Physician Assistant; Emergency Provider Emergency Medicine; PCP Nurse Practitioner Primary Care; Visit Provider Internal Medicine
DX: G40.909 Epilepsy, unspecified, not intractable, without status epilepticus (principal); I69.351 Hemiplegia and hemiparesis following cerebral infarction affecting right dominant side; E11.40 Type 2 diabetes mellitus with diabetic neuropathy, unspecified; J45.20 Mild intermittent asthma, uncomplicated; Z87.891 Personal history of nicotine dependence; F14.10 Cocaine abuse, uncomplicated; F32.A Depression, unspecified; F12.10 Cannabis abuse, uncomplicated; E11.65 Type 2 diabetes mellitus with hyperglycemia; I10 Essential (primary) hypertension; E87.6 Hypokalemia; E66.01 Morbid (severe) obesity due to excess calories; Z20.822 Contact with and (suspected) exposure to COVID-19; Z99.3 Dependence on wheelchair; Z79.4 Long term (current) use of insulin; Z79.82 Long term (current) use of aspirin; Z79.84 Long term (current) use of oral hypoglycemic drugs; Z79.85 Long-term (current) use of injectable non-insulin antidiabetic drugs; Z79.899 Other long term (current) drug therapy
CPT/HCPCS: 0241U; 36415; 70450; 70496; 70498; 80048; 80053; 80307; 81001; 81003; 82947; 83735; 84132; 85025; 87086; 87147; 93005; 95816; 97162; 99222; 99285; J1650

== ENCOUNTER → 2023-10-22 15:00 | Outpatient (BNV) | payer MEDICAID, SELFPAY | PROVIDERS: Admitting Provider Physician Assistant; Emergency Provider Emergency Medicine; PCP Nurse Practitioner Primary Care; Visit Provider Internal Medicine Cardiovascular Disease | DX: R56.9 Unspecified convulsions (principal) | CPT/HCPCS: 93010 ==

== ENCOUNTER → 2023-10-22 22:03 | Outpatient (BNV) | payer MEDICAID, SELFPAY | PROVIDERS: Admitting Provider Physician Assistant; Emergency Provider Emergency Medicine; PCP Nurse Practitioner Primary Care; Visit Provider Psychiatry & Neurology Neurology | DX: G40.909 Epilepsy, unspecified, not intractable, without status epilepticus (principal); I63.532 Cerebral infarction due to unspecified occlusion or stenosis of left posterior cerebral artery | CPT/HCPCS: 99222 ==

== ENCOUNTER → 2023-10-22 22:03 | Outpatient (BNV) | payer MEDICAID, SELFPAY | PROVIDERS: Admitting Provider Physician Assistant; Emergency Provider Emergency Medicine; PCP Nurse Practitioner Primary Care; Visit Provider Internal Medicine | DX: G83.84 Todd's paralysis (postepileptic) (principal); R56.9 Unspecified convulsions | CPT/HCPCS: 99223; 99231; 99239 ==

== ENCOUNTER 2023-12-03 17:03 | Emergency (ER) | payer MEDICAID, SELFPAY ==
--- NOTE | ~2023-12-03 | CT_ITS ---
EXAMINATION: CT CHEST WITHOUT CONTRAST CT ABDOMEN AND PELVIS WITHOUT CONTRAST CLINICAL INFORMATION: Fall. back pain. spine/hip fracture. abdomen injur. COMPARISON: 04/02/2022 and 10/27/2017 TECHNIQUE: Multidetector volumetric imaging was performed from the thoracic inlet through the pubic symphysis. Sagittal and coronal images were reformatted. This CT examination was performed using dose optimization techniques as appropriate, variously including the following: *Automated exposure control *Adjustment of mA and/or kV according to patient size (this includes techniques or standardized protocols for targeted exams where dose is matched to indication/reason for exam; i.e. extremities or head) *Use of iterative reconstruction technique DOSE: 732 mGy-cm FINDINGS: -CHEST- LUNG: Mild dependent atelectasis. No focal opacity or nodule. Central airways are clear. MEDIASTINUM: Heart is normal in size. The central vascular structures are unremarkable. Thyroid gland is normal. No hilar or mediastinal lymphadenopathy. PERICARDIUM/PLEURA: No significant effusion. No pleural mass or thickening. CHEST WALL/AXILLA: Unremarkable. -ABDOMEN/PELVIS- LIVER, GALLBLADDER, BILIARY TREE: The liver is normal in size, shape, and attenuation. No focal hepatic lesion or biliary ductal dilatation is present. Gallbladder is surgically absent. PANCREAS: Normal; no mass or surrounding fluid. SPLEEN: Normal size. No focal lesion. ADRENAL GLANDS: There is a small 9 mm nodule of the left adrenal gland with attenuation 25 Hounsfield units which is unchanged in size as compared to 10/31/2017. Stability over multiple years is highly suggestive of a benign adenoma. No recommend follow-up. KIDNEYS AND URETERS: The kidneys are normal in size, shape, and attenuation. There is a 3 mm calculus within a right lower renal pole calyx. No hydronephrosis or hydroureter. No perinephric stranding BLADDER: Unremarkable. GASTROINTESTINAL TRACT: Stomach, small bowel, and colon are normal in caliber. No bowel wall thickening or surrounding inflammatory changes. Appendix is normal. No intraperitoneal free fluid or free air. ABDOMINAL WALL: No significant hernia is appreciated. VASCULATURE: Aorta is normal in size. No significant calcific atherosclerotic disease. LYMPH NODES: No lymphadenopathy. . PELVIC VISCERA: The uterus and adnexa are unremarkable. OSSEUS STRUCTURES: There is osseous bridging across osteophytic bridging is seen across multiple levels in the thoracic spine, consistent with diffuse idiopathic skeletal hyperostosis. Multilevel degenerative disc disease is present in the lumbar spine. No fractures. Mild to moderate osteoarthritis is present in the SI joints and hips. CT/CT abdomen pelvis wo IV con IMPRESSION: 1. No acute abnormalities are identified in the chest, abdomen, and pelvis. No acute fractures. 2. A 3 mm nonobstructing right renal calculus. 3. [id number] multilevel degenerative spondylosis in the thoracolumbar spine with diffuse idiopathic skeletal hyperostosis
--- NOTE | ~2023-12-03 | CT_ITS ---
EXAMINATION: HEAD CT WITHOUT CONTRAST CERVICAL SPINE CT WITHOUT CONTRAST CLINICAL INFORMATION: Fall COMPARISON: 10/22/2023 TECHNIQUE: Contiguous axial imaging of the head was performed without the administration of IV contrast. Axial multidetector volumetric images were also performed through the cervical spine without intravenous contrast. Multiplanar reconstructed images in coronal and sagittal orientations were submitted. This CT examination was performed using dose optimization techniques as appropriate, variously including the following: *Automated exposure control *Adjustment of mA and/or kV according to patient size (this includes techniques or standardized protocols for targeted exams where dose is matched to indication/reason for exam; i.e. extremities or head) *Use of iterative reconstruction technique DOSE: 631 mGy-cm FINDINGS: HEAD: Focal left para midline posterior frontal and parietal encephalomalacia near the vertex, unchanged. Mild expected dilatation of the left lateral ventricle in this region. The ventricles are otherwise normal in appearance. There is no evidence of acute intracranial hemorrhage or territorial infarction. No abnormal mass-effect or midline shift. No extra-axial fluid collections. Vicente to white matter differentiation is well preserved. Minimal hyperostosis frontalis interna. The soft tissues and osseous structures are otherwise normal. The sinuses and mastoid air cells are clear. CERVICAL SPINE: Vertebral body heights are normal. No fractures of the vertebral bodies or posterior elements. Vertebral alignment is normal. No subluxation. Mild degenerative changes are present at the craniocervical and atlantoaxial articulations, though normal alignment is maintained. [id number] multilevel degenerative disc disease in the cervical spine with endplate osteophytes and loss of vertebral disc height. 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 Facet joints are normal. The posterior disc osteophyte complexes and ossification of the posterior longitudinal ligament combine with a borderline congenitally narrow central canal (11 mm AP from the C3 through C7) to produce at least moderate multilevel central canal stenosis. No significant paravertebral soft tissue swelling. Cervical soft tissues are unremarkable. Imaged portions of the lung apices are clear. CT/CT cervical spine wo IV con IMPRESSION: 1. No acute intracranial pathology. Unchanged focal chronic encephalomalacia in the left parasagittal frontoparietal region. 2. No acute fracture or malalignment in the cervical spine. 3. 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 This combines with a borderline congenitally narrow central canal to produce at least moderate multilevel central canal stenosis.
--- NOTE | 2023-12-03 17:14 | PC.NURSE ---
Pt sent external, discussed with Dr Henry. Triage aware
[2023-12-03 17:19] VITALS: BP 130/84; PULSE 76; O2SAT 98
[2023-12-03 18:06] VITALS: BP 125/83; PULSE 72; RESP 18; TEMP 36; O2SAT 99; BMI 42.0
--- NOTE | 2023-12-03 18:17 | ED.GENADULT ---
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 The patient then notes since then her lower back is very painful no new numbness, able to use bathroom no issues just has a bruise and a lot of pain in the back. Not on thinners MD complaint: back pain after fall Onset (ago): day(s) (Saturday ) Location: back Radiation: non-radiation Severity: moderate Quality: aching and constant Pain Consistency: constant Relieving factors: immobilization Exacerbating factors: movement Associated symptoms: denies other symptoms Treatments prior to arrival: NSAID Related Data Home Medications ?Medication ?Instructions ?Recorded ?Confirmed blood sugar diagnostic (FreeStyle #10 ea 11/01/21 04/17/22 Lite Strips) blood-glucose meter (FreeStyle #1 ea 11/01/21 04/17/22 [place] Lite kit) clonidine HCl 0.2 mg tablet 0.2 mg PO BID 11/01/21 10/22/23 duloxetine 30 mg capsule,delayed 30 mg PO DAILY 11/01/21 10/22/23 release folic acid 1 mg tablet 1 mg PO DAILY 11/01/21 10/22/23 lisinopril 40 mg tablet 40 mg PO DAILY 11/01/21 10/22/23 magnesium oxide 400 mg (241.3 mg 400 mg PO BID 11/01/21 10/22/23 magnesium) tablet metformin 1,000 mg tablet 1,000 mg PO BIDWM 11/01/21 10/22/23 omeprazole 20 mg capsule,delayed 20 mg PO DAILY@0630 11/01/21 10/22/23 release pen needle, diabetic 31 gauge x #50 ea 11/01/21 04/17/22/16 (Sure Comfort Pen Needle) thiamine HCl (vitamin B1) 100 mg 100 mg PO DAILY 11/01/21 10/22/23 tablet cyclobenzaprine 10 mg tablet 1 tab PO BID PRN muscle spasm 04/02/22 10/22/23 insulin lispro 100 unit/mL See Protocol subcut TIDAC 04/02/22 10/22/23 subcutaneous pen albuterol sulfate 90 mcg/actuation 2 puff inhalation Q6H PRN wheezing 07/31/23 10/22/23 aerosol inhaler (Ventolin HFA) hydroxyzine HCl 25 mg tablet 25 mg PO BID PRN Anxiety 07/31/23 10/22/23 mirtazapine 7.5 mg tablet 7.5 mg PO BEDTIME PRN Insomnia 07/31/23 10/22/23 pregabalin 50 mg capsule 50 mg PO TID 07/31/23 10/22/23 doxepin 25 mg capsule 25 mg PO BEDTIME 10/22/23 10/22/23 dulaglutide 3 mg/0.5 mL 3 mg subcut TU 10/22/23 10/22/23 subcutaneous pen injector (Trulicity) duloxetine 60 mg capsule,delayed 60 mg PO DAILY 10/22/23 10/22/23 release escitalopram oxalate 5 mg/5 mL 20 mg PO QAM 10/22/23 10/22/23 oral solution insulin glargine 100 unit/mL (3 10 unit subcut BID 10/22/23 10/22/23 mL) subcutaneous pen melatonin 10 mg capsule 10 mg PO BEDTIME insomnia 10/22/23 10/22/23 Previous Rx's ?Medication ?Instructions ?Recorded aspirin 81 mg chewable tablet 81 mg PO DAILY #90 tabs 08/01/23 atorvastatin 40 mg tablet 40 mg PO BEDTIME #90 tabs 08/01/23 levetiracetam 1,000 mg tablet 1,500 mg (1.5 x 1,000 mg) PO 10/24/23 BID@0900,1700 #120 tabs morphine 15 mg immediate release 15 mg PO Q6H PRN pain #10 tabs 12/04/23 tablet Allergies Allergy/AdvReac Type Severity Reaction Status Date / Time tomato [TOMATO] Allergy Unknown RASH Verified 12/03/23 18:10 Review of Systems Review of Systems: Constitutional : No Weight loss, No Fever, No Chills, ENT/Mouth : No Hearing loss, No Ear Pain, No Nasal Congestion, No Sinus Pain, No Hoarseness, No sore throat, No Rhinorrhea, No Swallowing Difficulty Cardiovascular : No Chest Pain, No SOB Respiratory : No Cough, No Dyspnea Gastrointestinal : No Nausea, No Vomiting, No Diarrhea, No abdominal Pain, No Hematochezia, No Melena Genitourinary : No Dysuria, No Urinary Frequency, No Hematuria, No Urinary Incontinence, Musculoskeletal : positive back pain Skin : No Skin Lesions, No rash Neuro : No Weakness, No Numbness, No Paresthesias, no loss of bowel or bladder incontinence, no saddle anesthesia All other systems reviewed and are negative [facility] Past Medical History Attestation statement: The following information was validated with the patient. Source: old records reviewed Medical History Transaminitis Cholecystitis, acute with cholelithiasis UTI (urinary tract infection) Asthma Restless leg syndrome Stroke GERD (gastroesophageal reflux disease) Anxiety Depression Insomnia Neuropathy Seizure Hypertension Insulin dependent type 2 diabetes mellitus Morbid obesity Hx of completed stroke Surgical History History of laparoscopic cholecystectomy (04/05/22) History of Family History Family History Mother Diabetes Father Diabetes Alcoholism Social History Social History Household Members: None Housing: Apartment Do you presently have visiting nurse or other home services: Yes ([employer], vna) Alcohol intake: never Patient Tobacco Use Status: Former Tobacco user Quit Date: 2018 Tobacco use type: Cigarette Cigarette Packs Per Day: 2 Cigarettes Per Day: 40.0 Years Smoked: 14 Substance Use Type: Marijuana Advance Directives: Yes Advance Directives on File: Yes Advance Directives Date on File: 04/02/22 Do you have a plan to hurt others: No Plan service: No Current occupational status: unemployed Physical Exam ED Vital Signs: Vital Signs - 24 hr 12/03/23 18:06 12/03/23 21:20 12/04/23 00:52 Temperature 96.8 F 98.4 F 98.2 F Pulse Rate 72 69 68 Respiratory Rate 18 18 17 Blood Pressure 125/83 115/68 108/56 L Pulse Oximetry 99 98 98 Oxygen Delivery Method Room Air Room Air Room Air 12/04/23 01:07 Temperature 98.2 F Pulse Rate 68 Respiratory Rate 17 Blood Pressure 108/56 L Pulse Oximetry 98 Oxygen Delivery Method Room Air BMI result Body Mass Index 42.0 Course Course Course Narrative: RME: Triage done by MADDISON Bah. Patient presents to ED for fall on Saturday. Patient states she hit her head. Patient states right back hip leg pain with bruise and lower back. Patient hyperglycemic at 378. Patient inability as before, to the ED. positive for spine tenderness on palpation will do labs basic and imaging. 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 Differential Diagnosis Differential Diagnoses: The differential diagnosis associated with the presentation includes hematoma, sprain, strain, compression fracture Admission/Observation Consideration of admission/observation: Escalation of care including admission/observation considered GCS 15, at baseline, no trauma on CT scans noted Lab Data [facility] Lab Attestation statement: I reviewed the patient's lab results. Labs: Lab Results 12/03/23 12/04/23 Range/Units 20:19 00:04 POC Glucose 124 H (60-115) mg/dL Beta HCG, Quant < 2 mIU/mL Independent Interpretation I performed an independent interpretation of an: CT Scan (atraumatic ) Radiology Impression Discussion of test interpretation with radiology: I have reviewed the radiologist's reading. External Record Review External record reviewed: Inpatient record Prescription Management I considered prescription management with: Pain Medication Discharge Plan Discharge Clinical Impression: Back contusion Qualifiers: Encounter type: initial encounter Laterality: unspecified laterality Qualified Code(s): S20.229A - Contusion of unspecified back wall of thorax, initial encounter Patient Disposition: Home, Self-Care Instructions: Contusion in Adults (ED), Back Pain (ED) Additional Instructions: no acute trauma or broken bones seen on CT scans follow up with your doctor return for worsening symptoms such as numbness, weakness, loss of control of bowel or bladder or any other concerns. Prescriptions: New morphine 15 mg tablet 15 mg PO Q6H PRN (Reason: pain) Qty: 10 0RF Rx Instructions: partial fill okay; Partial Fill upon patient request. No Action cyclobenzaprine 10 mg tablet 1 tab PO BID PRN (Reason: muscle spasm) insulin lispro 100 unit/mL insulin pen See Protocol subcut TIDAC Protocol: Insulin Correction Scale Less than or equal to 110 ---- Give (units): 0 111 to 150 Give (units): 0 151 to 200 Give (units): 2 201 to 250 Give (units): 4 251 to 300 Give (units): 6 301 to 350 Give (units): 8 Greater than 350 Give (units): 10 Call MD if Blood Glucose > : 350 hydroxyzine HCl 25 mg tablet 25 mg PO BID PRN (Reason: Anxiety) albuterol sulfate [Ventolin HFA] 90 mcg/actuation HFA aerosol inhaler 2 puff INHALATION Q6H PRN (Reason: wheezing) mirtazapine 7.5 mg tablet 7.5 mg PO BEDTIME PRN (Reason: Insomnia) pregabalin 50 mg capsule 50 mg PO TID atorvastatin 40 mg Tablet 40 mg PO BEDTIME Qty: 90 0RF aspirin 81 mg Tablet,Chewable 81 mg PO DAILY Qty: 90 0RF doxepin 25 mg capsule 25 mg PO BEDTIME escitalopram oxalate 5 mg/5 mL solution 20 mg PO QAM duloxetine 60 mg capsule,delayed release(DR/EC) 60 mg PO DAILY Trulicity 3 mg/0.5 mL pen injector 3 mg subcut TU insulin glargine 100 unit/mL (3 mL) insulin pen 10 unit SUBCUT BID melatonin 10 mg capsule 10 mg PO BEDTIME levetiracetam 1,000 mg tablet 1,500 mg PO BID@0900,1700 Qty: 120 0RF omeprazole 20 mg capsule,delayed release(DR/EC) 20 mg PO DAILY@0630 (DME) blood-glucose meter [FreeStyle [place] Lite] Kit See Rx Instructions Not Applicable DAILY Qty: 1 Rx Instructions: As directed thiamine HCl (vitamin B1) 100 mg tablet 100 mg PO DAILY (DME) FreeStyle Lite Strips Strip See Rx Instructions Not Applicable TID Qty: 10 Rx Instructions: As directed duloxetine 30 mg capsule,delayed release(DR/EC) 30 mg PO DAILY magnesium oxide 400 mg (241.3 mg magnesium) tablet 400 mg PO BID folic acid 1 mg tablet 1 mg PO DAILY clonidine HCl 0.2 mg tablet 0.2 mg PO BID lisinopril 40 mg tablet 40 mg PO DAILY metformin 1,000 mg tablet 1,000 mg PO BIDWM (DME) pen needle, diabetic [Sure Comfort Pen Needle] 31 gauge x 3/16 needle See Rx Instructions .ROUTE BID Qty: 50 Rx Instructions: As directed Interventions: ED Discharge Assessment Last Done: 12/04/23 01:07 Discharge Date/Time: 12/04/23 01:10 Print Language: Ukrainian
[2023-12-03 20:54] LABS: HCG Quantitative < 2 mIU/mL
[2023-12-03 21:20] VITALS: BP 115/68; PULSE 69; RESP 18; TEMP 36.9; O2SAT 98
[2023-12-03] MEDS: Morphine Sulfate Immed Release 15 MG TABLET PO (22:51)
[2023-12-04 00:08] LABS: Glucose, Whole Blood 124 mg/dL (60-115)
[2023-12-04 00:52] VITALS: BP 108/56; PULSE 68; RESP 17; TEMP 36.8; O2SAT 98
[2023-12-04 01:07] VITALS: BP 108/56; PULSE 68; RESP 17; TEMP 36.8; O2SAT 98
--- NOTE | 2023-12-04 01:10 | PC.NURSE ---
report given to zofia. pt leaving via EMS at this time.
== END 2023-12-04 01:10 | disposition home or self-care (01) ==
PROVIDERS: Physician Assistant; Emergency Provider Emergency Medicine; PCP Nurse Practitioner Primary Care
DX: S20.229A Contusion of unspecified back wall of thorax, initial encounter (principal); W01.0XXA Fall on same level from slipping, tripping and stumbling without subsequent striking against object, initial encounter; Y93.89 Activity, other specified; Y92.009 Unspecified place in unspecified non-institutional (private) residence as the place of occurrence of the external cause; Y99.9 Unspecified external cause status; E11.9 Type 2 diabetes mellitus without complications; I10 Essential (primary) hypertension; J45.909 Unspecified asthma, uncomplicated; Z79.4 Long term (current) use of insulin; Z79.84 Long term (current) use of oral hypoglycemic drugs; Z79.85 Long-term (current) use of injectable non-insulin antidiabetic drugs; Z79.82 Long term (current) use of aspirin; Z79.899 Other long term (current) drug therapy; Z86.73 Personal history of transient ischemic attack (TIA), and cerebral infarction without residual deficits
CPT/HCPCS: 36415; 70450; 71250; 72125; 74176; 82947; 84702; 99283; 99284

== ENCOUNTER 2023-12-31 16:15 | Outpatient (REF) | payer MEDICAID, SELFPAY ==
[2023-12-31 18:01] LABS: CT PCR NOT DETECTED (Not Detect.); NG PCR NOT DETECTED (Not Detect.)
[2024-01-01 10:54] LABS: Bacterial Vaginosis PCR POSITIVE (Negative); Candida Group PCR NOT DETECTED (Not Detect); Candida glab krusei PCR NOT DETECTED (Not Detect); Trichomonas vaginalis PCR DETECTED (Not Detect)
== END 2023-12-31 16:16 | disposition home or self-care (01) ==
LOC: HO.HHCLNP 16:15
PROVIDERS: Visit Provider Advanced Practice Midwife
DX: N89.8 Other specified noninflammatory disorders of vagina (principal)
CPT/HCPCS: 0352U; 0353U

== ENCOUNTER 2024-04-13 12:47 | Emergency (ER) | payer MEDICAID, SELFPAY ==
--- NOTE | ~2024-04-13 | CT_ITS ---
EXAMINATION: CT ABDOMEN AND PELVIS WITH CONTRAST CLINICAL INFORMATION: Vomiting, abdominal pain COMPARISON: 12/03/2023 TECHNIQUE: Multidetector volumetric images were obtained from the superior aspect of the liver through the pubic symphysis following administration 85 mL of Omnipaque 350 intravenous contrast. Sagittal and coronal reformatted images were obtained on the technologist's workstation. Oral contrast: No This CT examination was performed using dose optimization techniques as appropriate, variously including the following: *Automated exposure control *Adjustment of mA and/or kV according to patient size (this includes techniques or standardized protocols for targeted exams where dose is matched to indication/reason for exam; i.e. extremities or head) *Use of iterative reconstruction technique DLP: 790.74 mGy-cm FINDINGS: LUNG BASES: Bibasilar multifocal opacities may reflect inflammation/infection in the lung bases. ABDOMINAL AND PELVIC WALL: Unremarkable. LIVER AND BILIARY TREE: Hepatic steatosis. GALLBLADDER: Status post cholecystectomy. PANCREAS: Unremarkable. SPLEEN: Unremarkable. ADRENAL GLANDS: Unremarkable. KIDNEYS AND URETERS: Unremarkable. GASTROINTESTINAL TRACT: Unremarkable. Appendix is within normal limits. VASCULAR: Unremarkable LYMPH NODES/PERITONEUM: No lymphadenopathy. FREE FLUID: Small volume fluid in the pelvis. BLADDER: Unremarkable. PELVIC VISCERA: Unremarkable. OSSEOUS STRUCTURES: Degenerative changes of the spine. CT/CT abdomen pelvis w IV con IMPRESSION: * Bibasilar multifocal opacities may reflect inflammation/infection in the lung bases. * Hepatic steatosis. * Small volume fluid in the pelvis. Electronically signed by: Bridgette Sorto MD 04/13/2024 07:13 PM EDT
--- NOTE | ~2024-04-13 | CT_ITS ---
EXAMINATION: CT HEAD WITHOUT CONTRAST CLINICAL INFORMATION: Seizure. COMPARISON: CT scan of the head 12/03/2023. TECHNIQUE: Contiguous axial imaging was performed from the skull base to vertex without intravenous administration of contrast. This CT examination was performed using dose optimization techniques as appropriate, variously including the following: *Automated exposure control *Adjustment of mA and/or kV according to patient size (this includes techniques or standardized protocols for targeted exams where dose is matched to indication/reason for exam; i.e. extremities or head) *Use of iterative reconstruction technique DLP: 1450 mGy-cm FINDINGS: Patient motion degrades image quality there for the diagnostic accuracy of this examination is limited. 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 There is no intracranial mass effect or midline shift. No abnormal extra-axial collection. Lateral and third ventricles are proportionate to the subarachnoid spaces. No hydrocephalus. The calvarium and skull base are grossly intact. Trace right mastoid tip effusion. No active paranasal sinus disease. CT/CT head/brain wo IV con IMPRESSION: Patient motion degrades image quality therefore the diagnostic accuracy of this examination is limited. 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 No intracranial mass effect or hydrocephalus. Electronically signed by: Kumar Boyd MD 04/13/2024 06:23 PM EDT
[2024-04-13 13:09] VITALS: BP 138/78; PULSE 76; O2SAT 98
[2024-04-13 13:28] VITALS: BP 129/102; PULSE 92; RESP 20; TEMP 36.3; O2SAT 95; BMI 41.3
--- NOTE | 2024-04-13 13:29 | ED.GENADULT ---
HPI - General Adult General Chief complaint: Seizure Stated complaint: N/V/CP 1H AGO,CHEN NOW,HIGH BP 162,92 PER EMS Time Seen by Provider: 04/13/24 13:26 Source: patient and EMS Mode of arrival: EMS Limitations: other (poor historian ) History of Present Illness ED Provider: Jessica MENSAH HPI narrative: This is a 48-year-old female history of anxiety, asthma, cholecystitis status post lap pradip in 2021, depression, GERD, stroke, hypertension, insomnia, insulin dependent type 2 diabetes, obesity, neuropathy, restless legs syndrome, seizure, elevated transaminases, hx of cocaine and marijuana abuse presenting to the emergency department with concerns of 2 seizures since this morning and 2-3 episodes of emesis, reports she takes meds to nurse but to me denies taking meds. Now having headache. No trauma to head reported. No recent illness. Denies fevers, chills, cp, sob, diarrhea, vision changes, dizziness, weakness. On arrival says im weak and going to have a seizure starts seizing i do the arm test she holds her arm up in the air. No arm drop noted. Nurse Claudette at bedside patient was shaking entire body and then talking, no post ictal phase no tongue trauma no incontinence. Related Data Home Medications ?Medication ?Instructions ?Recorded ?Confirmed blood sugar diagnostic (FreeStyle #10 ea 11/01/21 04/17/22 Lite Strips) blood-glucose meter (FreeStyle #1 ea 11/01/21 04/17/22 [place] Lite kit) clonidine HCl 0.2 mg tablet 0.2 mg PO BID 11/01/21 10/22/23 duloxetine 30 mg capsule,delayed 30 mg PO DAILY 11/01/21 10/22/23 release folic acid 1 mg tablet 1 mg PO DAILY 11/01/21 10/22/23 lisinopril 40 mg tablet 40 mg PO DAILY 11/01/21 10/22/23 magnesium oxide 400 mg (241.3 mg 400 mg PO BID 11/01/21 10/22/23 magnesium) tablet metformin 1,000 mg tablet 1,000 mg PO BIDWM 11/01/21 10/22/23 omeprazole 20 mg capsule,delayed 20 mg PO DAILY@0630 11/01/21 10/22/23 release pen needle, diabetic 31 gauge x #50 ea 11/01/21 04/17/22/ (Sure Comfort Pen Needle) thiamine HCl (vitamin B1) 100 mg 100 mg PO DAILY 11/01/21 10/22/23 tablet cyclobenzaprine 10 mg tablet 1 tab PO BID PRN muscle spasm 04/02/22 10/22/23 insulin lispro 100 unit/mL See Protocol subcut TIDAC 04/02/22 10/22/23 subcutaneous pen albuterol sulfate 90 mcg/actuation 2 puff inhalation Q6H PRN wheezing 07/31/23 10/22/23 aerosol inhaler (Ventolin HFA) hydroxyzine HCl 25 mg tablet 25 mg PO BID PRN Anxiety 07/31/23 10/22/23 mirtazapine 7.5 mg tablet 7.5 mg PO BEDTIME PRN Insomnia 07/31/23 10/22/23 pregabalin 50 mg capsule 50 mg PO TID 07/31/23 10/22/23 doxepin 25 mg capsule 25 mg PO BEDTIME 10/22/23 10/22/23 dulaglutide 3 mg/0.5 mL 3 mg subcut TU 10/22/23 10/22/23 subcutaneous pen injector (Trulicity) duloxetine 60 mg capsule,delayed 60 mg PO DAILY 10/22/23 10/22/23 release escitalopram oxalate 5 mg/5 mL 20 mg PO QAM 10/22/23 10/22/23 oral solution insulin glargine 100 unit/mL (3 10 unit subcut BID 10/22/23 10/22/23 mL) subcutaneous pen melatonin 10 mg capsule 10 mg PO BEDTIME insomnia 10/22/23 10/22/23 Previous Rx's ?Medication ?Instructions ?Recorded aspirin 81 mg chewable tablet 81 mg PO DAILY #90 tabs 08/01/23 atorvastatin 40 mg tablet 40 mg PO BEDTIME #90 tabs 08/01/23 levetiracetam 1,000 mg tablet 1,500 mg (1.5 x 1,000 mg) PO 10/24/23 BID@0900,1700 #120 tabs morphine 15 mg immediate release 15 mg PO Q6H PRN pain #10 tabs 12/04/23 tablet ondansetron HCl 4 mg tablet 4 mg PO Q8H PRN nausea and 04/13/24 vomiting #14 tabs amoxicillin 875 mg-potassium 1 tab PO Q12H 5 days #10 tabs 04/14/24 clavulanate 125 mg tablet azithromycin 500 mg tablet See Rx Instructions PO .COMPLEX #6 04/14/24 tabs Allergies Allergy/AdvReac Type Severity Reaction Status Date / Time tomato [TOMATO] Allergy Unknown RASH Verified 04/13/24 13:29 Review of Systems Review of Systems: Yes all other systems are reviewed and are negative [facility] Past Medical History Attestation statement: The following information was validated with the patient. Source: old records reviewed and nursing notes reviewed Medical History Transaminitis Cholecystitis, acute with cholelithiasis UTI (urinary tract infection) Asthma Restless leg syndrome Stroke GERD (gastroesophageal reflux disease) Anxiety Depression Insomnia Neuropathy Seizure Hypertension Insulin dependent type 2 diabetes mellitus Morbid obesity Hx of completed stroke Surgical History History of laparoscopic cholecystectomy (04/05/22) History of Family History Family History Mother Diabetes Father Diabetes Alcoholism Social History Social History Household Members: None Housing: Apartment Do you presently have visiting nurse or other home services: Yes (revival clerk, vna) Alcohol intake: never Patient Tobacco Use Status: Former Tobacco user Tobacco use type: Cigarette Cigarette Packs Per Day: 2 Cigarettes Per Day: 40.0 Years Smoked: 14 Smoked in Last 30 Days: No Substance Use Type: Marijuana Substance Use Frequency: Monthly Last Used Substance: Days (ago) Advance Directives: Yes Advance Directives on File: Yes Advance Directives Date on File: 04/02/22 Do you have a plan to hurt others: No Plan Patient : No service: No Current occupational status: unemployed Physical Exam ED Vital Signs: Vital Signs - 24 hr 04/14/24 00:00 04/14/24 02:00 04/14/24 02:05 Temperature 98.7 F 97.9 F 97.9 F Pulse Rate 89 101 H 101 H Respiratory Rate 16 16 16 Blood Pressure 152/99 H 145/91 H 145/91 H Pulse Oximetry 95 96 96 Oxygen Delivery Method Room Air Room Air Room Air BMI result Body Mass Index 41.3 vss Appearance: Alert.? Oriented X3.? No acute distress.? Head: Normocephalic, atraumatic, no step-offs or deformities Neck: Normal inspection.? Neck supple.? CVS: Normal heart rate and rhythm.? Pulses normal.? Respiratory: No respiratory distress.? Breath sounds normal.? Abdomen: Soft and nontender.? Skin: Skin warm and dry.? Normal skin color.? Normal skin turgor.? Extremities: No lower extremity edema.? No calf ttp. 5/5 strength to bilateral upper and lower extremities Neuro: Oriented X 3.? No motor deficit.? No sensory deficit. CN 2-12 intact Course Reevaluation(s) Reevaluation #1: CBC with leukocytosis 17.3 she did have an episode of vomiting prior to arrival according to EMS. Chemistry with no acute findings needing intervention. Random glucose elevated will give insulin at this time. Normal troponin, normal beta hCG. Patient did have an episode of emesis while getting a CT scan. Large volume. Time: 14:47 Reevaluation #2: I did speak to patient's PCP who will send all her prescribed meds to the pharmacy. He did send Keppra this morning. CT scan pending , reval Time: 15:44 Reevaluation #3: Abdominal scan CT scan shows bilateral lung base opacities which can indicate infection versus inflammation. Case was presents hospitalist as aspiration pneumonia necessity for IV antibiotics and. Dr. Grullon came to evaluate patient and patient denies having any URI SYmptoms. He states clinically patient does not have pneumonia and CT scan probably more actetelastis. He does not recommend IV antibiotics or admission. Lactic acid elevation can be due to seizure will do fluids and repeat. He states patient is not septic Time: 22:00 Additional Reevaluation(s): 01:03am: Patient lactic acid 2.4. Case with discussed Dr. Morrell who states patient has elevated lactate most likely due to patient being on metformin. She agrees patient does not need to be admitted and can be discharged with p.o. antibiotics. Patient is not septic. Patient will be sent with oral antibiotics. Primary care provider already sent seizure medications to the pharmacy. Medications Administered Discontinued Medications Generic Name Dose Route Start Last Admin Trade Name Freq PRN Reason Stop Dose Admin Levetiracetam 1,000 mg in 100 mls @ 400 mls/hr 04/13/24 13:31 04/13/24 17:06 Keppra IV 04/13/24 13:45 Infused ONCE ONE Infusion Sodium Chloride 1,000 mls @ 999 mls/hr 04/13/24 14:30 04/13/24 17:06 Ns IV 04/13/24 15:30 Infused .Q1H1M FLORIAN Infusion Sodium Chloride 1,000 mls @ 999 mls/hr 04/13/24 14:45 04/13/24 21:45 Ns IV 04/13/24 15:45 Infused .Q1H1M FLORIAN Infusion Ceftriaxone Sodium 1 gm/ 50 mls @ 100 mls/hr 04/13/24 21:01 04/13/24 21:43 Sodium Chloride IV 04/13/24 21:30 Not Given ONCE ONE Azithromycin 500 mg/ Sodium 250 mls @ 125 mls/hr 04/13/24 21:01 04/13/24 21:44 Chloride IV 04/13/24 23:00 Not Given ONCE ONE Sodium Chloride 1,000 mls @ 999 mls/hr 04/13/24 22:32 04/14/24 01:30 Ns IV 04/13/24 23:32 Infused .Q1H1M STA Infusion Iohexol 100 ml 04/13/24 17:22 04/13/24 17:22 Iohexol 350 Mg/Ml 100 Ml Infus..Btl IV 04/13/24 17:23 85 ml ONCE ONE Administration Lorazepam 2 mg 04/13/24 13:20 04/13/24 13:33 Lorazepam 2 Mg/Ml Vial IM 04/13/24 13:21 2 mg STAT STA Administration Ondansetron HCl 4 mg 04/13/24 14:29 04/13/24 14:31 Ondansetron Hcl 4 Mg/2 Ml Vial IVPUSH 04/13/24 14:30 4 mg ONCE ONE Administration Medical Decision Making Medical Decision Making [facility] Narrative: 48-year-old female presents with 2 seizures in 1 day. Not med compliant PE benign hx and pe concerning for seizures likely due to non med compliance vs pseudoseizure. Unlikely intracranial hemorrhage, stroke, posterior stroke, meningitis, encephalitis. Will rule out metabolic derangements. Plan labs, imaging. Will give her Ativan and loaded with Keppra Differential Diagnosis Differential Diagnoses: The differential diagnosis associated with the presentation includes hx and pe concerning for seizures likely due to non med compliance vs pseudoseizure. Unlikely intracranial hemorrhage, stroke, posterior stroke, meningitis, encephalitis. Will rule out metabolic derangements. Admission/Observation Consideration of admission/observation: Escalation of care including admission/observation considered Lab Data MDM Lab Attestation statement: I reviewed the patient's lab results. 04/13/24 13:41 04/13/24 13:41 Labs: Lab Results 04/13/24 04/13/24 04/13/24 Range/Units 13:41 19:44 20:54 WBC 17.3 H (4.8-10.8) X10*3/uL RBC 5.42 (4.20-5.50) X10*6/uL Hgb 15.0 (12.0-16.0) g/dl Hct 44.4 (37.0-47.0) % MCV 81.9 (80.0-98.0) fL MCH 27.7 (27.0-33.0) pg MCHC 33.8 (31.0-35.0) g/dl RDW 14.6 (11.0-16.0) % Plt Count 226 D (160-400) X10*3/uL MPV 11.7 (9.4-12.3) fL Immature Gran % (Auto) 0.6 H (0.0-0.4) % Neut % (Auto) 87.2 H (45-73) % Lymph % (Auto) 7.4 L (20-40) % [place] % (Auto) 4.0 (2-11) % Eos % (Auto) 0.3 (0-4) % Baso % (Auto) 0.5 (0-2) % Lymph # (Auto) 1.3 (1.2-4.9) X10*3/uL [place] # (Auto) 0.7 (0.1-1.2) X10*3/uL Eos # (Auto) 0.1 (0.0-0.4) X10*3/uL Baso # (Auto) 0.1 (0.0-0.2) X10*3/uL Abs Immat Gran (auto) 0.10 H (0.00-0.03) X10*3/uL Absolute Neuts (auto) 15.1 H (2.0-8.3) x10*3/uL Absolute Nucleated RBC 0.000 (0.0-0.012) X10*3/uL Nucleated RBC % (auto) 0.0 (0.0-0.2) /100WBC Smear Tech's Comments VERIFIED Sodium 136 (135-145) mmol/L Potassium 3.8 (3.3-5.1) mmol/L Chloride 101 (96-108) mmol/L Carbon Dioxide 20 L (22-29) mmol/L Anion Gap 19 (12-20) BUN 4 L (9-16) mg/dL Creatinine 0.89 (0.5-1.4) mg/dL Estim Creat Clear Calc 78.5 Estimated GFR > 60 POC Glucose (60-115) mg/dL Random Glucose 293 H (60-115) mg/dL Lactic Acid (0.5-2.0) mmol/L Lactic Acid F/U @ 2Hr (0.5-2.0) mmol/L Calcium 9.1 (8.4-10.2) mg/dL Magnesium 1.5 L (1.6-2.6) mg/dL Total Bilirubin 0.6 (0.0-1.0) mg/dL AST 26 (5-31) U/L ALT 25 (0-31) U/L Alkaline Phosphatase 108 (39-117) U/L Troponin I High Sens 2.9 (<3.5-17.0) ng/L Total Protein 8.4 H (6.5-8.0) g/dL Albumin 4.1 (3.5-5.0) g/dL Lipase 84 H 58 (8-78) U/L Beta HCG, Quant < 2 mIU/mL Urine Color Yellow Urine Appearance Clear Urine pH 7.5 (5.0-9.0) Ur Specific [place] >= 1.030 H (1.005-1.025) Urine Protein 30 (1+) H (Neg-Trace) mg/dL Urine Glucose (UA) >=1000 H (Negative) mg/dL Urine Ketones 15 (Negative) mg/dL Urine Blood Negative (Negative) Urine Nitrite Negative (Negative) Ur Leukocyte Esterase Negative (Negative) Urine RBC 0-2 (0-2) /HPF Urine WBC 0-5 (0-5) /HPF Ur Squamous Epith Cells 3-5 (0-2) /HPF Urine Bacteria 1+ (None Seen) Hyaline Casts 0-2 (0-2) /LPF 04/13/24 04/13/24 04/14/24 Range/Units 21:07 22:12 00:24 WBC (4.8-10.8) X10*3/uL RBC (4.20-5.50) X10*6/uL Hgb (12.0-16.0) g/dl Hct (37.0-47.0) % MCV (80.0-98.0) fL MCH (27.0-33.0) pg MCHC (31.0-35.0) g/dl RDW (11.0-16.0) % Plt Count (160-400) X10*3/uL MPV (9.4-12.3) fL Immature Gran % (Auto) (0.0-0.4) % Neut % (Auto) (45-73) % Lymph % (Auto) (20-40) % [place] % (Auto) (2-11) % Eos % (Auto) (0-4) % Baso % (Auto) (0-2) % Lymph # (Auto) (1.2-4.9) X10*3/uL [place] # (Auto) (0.1-1.2) X10*3/uL Eos # (Auto) (0.0-0.4) X10*3/uL Baso # (Auto) (0.0-0.2) X10*3/uL Abs Immat Gran (auto) (0.00-0.03) X10*3/uL Absolute Neuts (auto) (2.0-8.3) x10*3/uL Absolute Nucleated RBC (0.0-0.012) X10*3/uL Nucleated RBC % (auto) (0.0-0.2) /100WBC Smear Tech's Comments Sodium (135-145) mmol/L Potassium (3.3-5.1) mmol/L Chloride (96-108) mmol/L Carbon Dioxide (22-29) mmol/L Anion Gap (12-20) BUN (9-16) mg/dL Creatinine (0.5-1.4) mg/dL Estim Creat Clear Calc Estimated GFR POC Glucose 190 H (60-115) mg/dL Random Glucose (60-115) mg/dL Lactic Acid 2.6 H* (0.5-2.0) mmol/L Lactic Acid F/U @ 2Hr 2.4 H* (0.5-2.0) mmol/L Calcium (8.4-10.2) mg/dL Magnesium (1.6-2.6) mg/dL Total Bilirubin (0.0-1.0) mg/dL AST (5-31) U/L ALT (0-31) U/L Alkaline Phosphatase (39-117) U/L Troponin I High Sens (<3.5-17.0) ng/L Total Protein (6.5-8.0) g/dL Albumin (3.5-5.0) g/dL Lipase (8-78) U/L Beta HCG, Quant mIU/mL Urine Color Urine Appearance Urine pH (5.0-9.0) Ur Specific [place] (1.005-1.025) Urine Protein (Neg-Trace) mg/dL Urine Glucose (UA) (Negative) mg/dL Urine Ketones (Negative) mg/dL Urine Blood (Negative) Urine Nitrite (Negative) Ur Leukocyte Esterase (Negative) Urine RBC (0-2) /HPF Urine WBC (0-5) /HPF Ur Squamous Epith Cells (0-2) /HPF Urine Bacteria (None Seen) Hyaline Casts (0-2) /LPF Independent Interpretation I performed an independent interpretation of an: CT Scan Radiology Impression Discussion of test interpretation with radiology: I have reviewed the radiologist's reading. External Record Review External record reviewed: Inpatient record, Office record, Outpatient record, Prior outpatient labs, Prior outpatient radiology, Primary care record and Outside ED record Chronic Conditions Patient?s care impacted by: Diabetes, Hypertension and Other (obesity ) Critical Care Time Critical Care Time Critical Care Time: Yes Total Critical Care Time: 35 Attestation: I attest to this time spent taking care of the patient, obtaining history, physical, reviewing labs, imaging, treatment of patients condition +/- specialist/hospitalist consult Discharge Plan Discharge Clinical Impression: Seizure, Nausea & vomiting, Pneumonia Patient Disposition: Home, Self-Care Instructions: Acute Nausea and Vomiting (ED), Community Acquired Pneumonia (ED), Recurrent Seizures in Adults (ED) Additional Instructions: Take your medications as prescribed. If you were prescribed antibiotics today, it is important that you take your medication to their entirety, do not skip any doses, do not finish them early. Follow-up with your primary care provider this week. Return to the emergency department with new or worsening symptoms. Such as fevers, chills, chest pain, shortness of breath, nausea, vomiting, dizziness, headache, vision changes, lethargy In case of emergency call 911 The best way of preventing seizures as by taking her home medicine. Please take your home meds. Prescriptions: New ondansetron HCl 4 mg tablet 4 mg PO Q8H PRN (Reason: nausea and vomiting) Qty: 14 0RF amoxicillin-pot clavulanate 875-125 mg tablet 1 tab PO Q12H 5 Days Qty: 10 0RF azithromycin 500 mg tablet See Rx Instructions .ROUTE .COMPLEX Qty: 6 0RF Rx Instructions: For 250 mg dose pack: take 500 mg today (day 1), then 250 mg for 4 days (days 2-5) No Action cyclobenzaprine 10 mg tablet 1 tab PO BID PRN (Reason: muscle spasm) insulin lispro 100 unit/mL insulin pen See Protocol subcut TIDA Protocol: Insulin Correction Scale Less than or equal to 110 ---- Give (units): 0 111 to 150 Give (units): 0 151 to 200 Give (units): 2 201 to 250 Give (units): 4 251 to 300 Give (units): 6 301 to 350 Give (units): 8 Greater than 350 Give (units): 10 Call MD if Blood Glucose > : 350 hydroxyzine HCl 25 mg tablet 25 mg PO BID PRN (Reason: Anxiety) albuterol sulfate [Ventolin HFA] 90 mcg/actuation HFA aerosol inhaler 2 puff INHALATION Q6H PRN (Reason: wheezing) mirtazapine 7.5 mg tablet 7.5 mg PO BEDTIME PRN (Reason: Insomnia) pregabalin 50 mg capsule 50 mg PO TID atorvastatin 40 mg Tablet 40 mg PO BEDTIME Qty: 90 0RF aspirin 81 mg Tablet,Chewable 81 mg PO DAILY Qty: 90 0RF doxepin 25 mg capsule 25 mg PO BEDTIME escitalopram oxalate 5 mg/5 mL solution 20 mg PO QAM duloxetine 60 mg capsule,delayed release(DR/EC) 60 mg PO DAILY Trulicity 3 mg/0.5 mL pen injector 3 mg subcut TU insulin glargine 100 unit/mL (3 mL) insulin pen 10 unit SUBCUT BID melatonin 10 mg capsule 10 mg PO BEDTIME levetiracetam 1,000 mg tablet 1,500 mg PO BID@0900,1700 Qty: 120 0RF morphine 15 mg tablet 15 mg PO Q6H PRN (Reason: pain) Qty: 10 0RF Rx Instructions: partial fill okay; Partial Fill upon patient request. omeprazole 20 mg capsule,delayed release(DR/EC) 20 mg PO DAILY@0630 (DME) blood-glucose meter [FreeStyle [place] Lite] Kit See Rx Instructions Not Applicable DAILY Qty: 1 Rx Instructions: As directed thiamine HCl (vitamin B1) 100 mg tablet 100 mg PO DAILY (DME) FreeStyle Lite Strips Strip See Rx Instructions Not Applicable TID Qty: 10 Rx Instructions: As directed duloxetine 30 mg capsule,delayed release(DR/EC) 30 mg PO DAILY magnesium oxide 400 mg (241.3 mg magnesium) tablet 400 mg PO BID folic acid 1 mg tablet 1 mg PO DAILY clonidine HCl 0.2 mg tablet 0.2 mg PO BID lisinopril 40 mg tablet 40 mg PO DAILY metformin 1,000 mg tablet 1,000 mg PO BIDWM (DME) pen needle, diabetic [Sure Comfort Pen Needle] 31 gauge x 3/16 needle See Rx Instructions .ROUTE BID Qty: 50 Rx Instructions: As directed Referrals: [facility] [place] Neuro/Sleep [Provider Group] - 2 days Interventions: ED Discharge Assessment Last Done: 04/14/24 02:05 Discharge Date/Time: 04/14/24 04:30 Print Language: Faroese
--- NOTE | 2024-04-13 13:31 | ECG_ITS ---
Test Reason : CP Blood Pressure : / mmHG Vent. Rate : 102 BPM Atrial Rate : 102 BPM P-R Int : 152 ms QRS Dur : 088 ms QT Int : 354 ms P-R-T Axes : 041 007 005 degrees QTc Int : 461 ms Sinus tachycardia Otherwise normal ECG When compared with ECG of 22-OCT-2023 15:45, No significant change was found Referred By: Deangelo Bauer Electronically Signed By:LEO BAZZI
[2024-04-13] MEDS: LORazepam 2 MG/ML VIAL IM (13:33)
[2024-04-13 13:49] LABS: Basophils Absolute Auto 0.1 X10*3/uL (0.0-0.2); Basophils Percent Auto 0.5 % (0-2); Eosinophils Absolute Auto 0.1 X10*3/uL (0.0-0.4); Eosinophils Percent Auto 0.3 % (0-4); Hematocrit 44.4 % (37.0-47.0); Imm Gran Pct Auto 0.6 % (0.0-0.4); Lymphocytes Absolute Auto 1.3 X10*3/uL (1.2-4.9); Lymphocytes Percent Auto 7.4 % (20-40); MANUAL DIFF FLAG SCAN; Mean Corpuscular HGB Conc 33.8 g/dl (31.0-35.0); Mean Corpuscular Hemoglobin 27.7 pg (27.0-33.0); Mean Corpuscular Volume 81.9 fL (80.0-98.0); Monocytes Absolute Auto 0.7 X10*3/uL (0.1-1.2); Neutrophils Absolute Auto 15.1 x10*3/uL (2.0-8.3); Neutrophils Percent Auto 87.2 % (45-73); PLT CLUMP 1; Red Blood Count 5.42 X10*6/uL (4.20-5.50); Red Cell Distribution Width 14.6 % (11.0-16.0); SCAN SMEAR FLAG 1
[2024-04-13 13:50] LABS: White Blood Count 17.3 X10*3/uL (4.8-10.8)
[2024-04-13 14:06] LABS: Troponin-I High Sensitivity 2.9 ng/L (<3.5-17.0)
[2024-04-13 14:09] LABS: Mean Platelet Volume 11.7 fL (9.4-12.3); Platelet Count 226 X10*3/uL (160-400); SLIDE REVIEW VERIFIED
[2024-04-13 14:10] LABS: Alanine Aminotransferase 25 U/L (0-31); Albumin Level 4.1 g/dL (3.5-5.0); Alkaline Phosphatase 108 U/L (39-117); Anion Gap 19 (12-20); Aspartate Amino Transferase 26 U/L (5-31); Bilirubin Total 0.6 mg/dL (0.0-1.0); Blood Urea Nitrogen 4 mg/dL (9-16); Calcium 9.1 mg/dL (8.4-10.2); Carbon Dioxide 20 mmol/L (22-29); Chloride 101 mmol/L (96-108); Creatinine Clr Calc Pharmacy 78.5; Estimated Glomerular Filt Rate > 60; Glucose Random 293 mg/dL (60-115); HCG Quantitative < 2 mIU/mL; Magnesium 1.5 mg/dL (1.6-2.6); Potassium 3.8 mmol/L (3.3-5.1); Sodium 136 mmol/L (135-145); Total Protein 8.4 g/dL (6.5-8.0)
[2024-04-13] MEDS: ondansetron HCL 4 MG/2 ML VIAL IVPUSH (14:31)
[2024-04-13] MEDS: levETIRAcetam in NaCl (iso-os) 1,000 MG/100 ML PIGGYBACK 400 MG IV (14:31)
[2024-04-13] MEDS: 0.9 % Sodium Chloride 1,000 ML 999 ML IV ×3 (14:34→23:32)
[2024-04-13 15:53] VITALS: BP 129/102; PULSE 92; RESP 20; TEMP 36.3; O2SAT 95
[2024-04-13 16:10] LABS: Lipase 84 U/L (8-78)
[2024-04-13] MEDS: iohexoL 350 MG/ML 100 ML INFUS..BTL IV (17:22)
--- NOTE | 2024-04-13 18:08 | MHC.EDTECH ---
Patient inc therefore changed and repositioned
[2024-04-13 18:54] VITALS: BP 146/88; PULSE 98; RESP 18; TEMP 36.6; O2SAT 97
[2024-04-13 20:21] LABS: Lipase 58 U/L (8-78)
[2024-04-13 21:01] LABS: Appearance Urine Clear; Color Urine Yellow; Glucose Urine UA >=1000 mg/dL (Negative); Leukocyte Esterase Urine Negative (Negative); Nitrite Urine Negative (Negative); PH 7.5 (5.0-9.0); Specific Gravity - Urine >= 1.030 (1.005-1.025); UMIC TRIGGER UACC YES; Urine Blood Negative (Negative); Urine Ketones 15 mg/dL (Negative); Urine Protein 30 (1+) mg/dL (Neg-Trace)
[2024-04-13 21:03] LABS: Bacteria Urine 1+ (None Seen); Hyaline Casts Urine 0-2 /LPF (0-2); RBC Urine 0-2 /HPF (0-2); WBC Urine 0-5 /HPF (0-5)
[2024-04-13 21:11] LABS: Glucose, Whole Blood 190 mg/dL (60-115)
--- NOTE | 2024-04-13 21:44 | PC.NURSE ---
stated he would like to hold medication at this time. pending bcx and lactic.
[2024-04-13 22:32] LABS: Lactic Acid 2.6 mmol/L (0.5-2.0)
[2024-04-14] VITALS: BP 152/99; PULSE 89; RESP 16; TEMP 37.1; O2SAT 95
[2024-04-14 00:17] LABS: Reflex Lactate? Lactic Acid Added
[2024-04-14 00:57] LABS: ~Lactic Acid-LAB USE ONLY 2.4 mmol/L (0.5-2.0)
[2024-04-14 02:00] VITALS: BP 145/91; PULSE 101; RESP 16; TEMP 36.6; O2SAT 96
[2024-04-14 02:05] VITALS: BP 145/91; PULSE 101; RESP 16; TEMP 36.6; O2SAT 96
[2024-04-14 02:26] LABS: Reflex Lactate? 2 Y
== END 2024-04-14 04:30 | disposition home or self-care (01) ==
PROVIDERS: Physician Assistant; Physician Assistant Medical; Emergency Provider Emergency Medicine Emergency Medical Services
DX: R56.9 Unspecified convulsions (principal); R11.2 Nausea with vomiting, unspecified; J18.9 Pneumonia, unspecified organism; R07.9 Chest pain, unspecified; R10.9 Unspecified abdominal pain; E11.9 Type 2 diabetes mellitus without complications; I10 Essential (primary) hypertension; Z79.899 Other long term (current) drug therapy; Z79.4 Long term (current) use of insulin
CPT/HCPCS: 36415; 70450; 74177; 80053; 81001; 81003; 82947; 83605; 83690; 83735; 84484; 84702; 85025; 87040; 93005; 96361; 96365; 96366; 96372; 96375; 99285; J1953; J2060; J2405; Q9967

== ENCOUNTER 2024-07-06 17:53 | Emergency (ER) | payer MEDICAID, SELFPAY ==
--- NOTE | ~2024-07-06 | XR_ITS ---
EXAMINATION: XR LUMBOSACRAL SPINE XR PELVIS XR HIP, RIGHT CLINICAL INFORMATION: Low back pain. COMPARISON: None available. TECHNIQUE: 3 views of the lumbar spine (AP, lateral, and coned lumbosacral junction views). Single AP view of the pelvis. 2 views of the right hip (AP and lateral). FINDINGS: Lumbar Spine: No evidence of acute fracture or subluxation of the lumbosacral spine. Mild degenerative retrolisthesis of L5 on S1. Otherwise, the vertebral bodies and posterior elements are in anatomic alignment. The vertebral body heights are maintained. Moderate degenerative disc disease at L5-S1. Mild degenerative disc disease at all additional levels. Moderate facet arthropathy from L4-S1. There appears to be at least moderate neural foraminal stenoses at L5-S1. Nonobstructive bowel gas pattern is demonstrated in the visualized portions of the abdomen. Changes of prior cholecystectomy. Pelvis: No fracture or dislocation of the pelvis. The iliopectineal, ilioischial, and sacral arcuate lines remain intact. The sacroiliac joints remain in normal alignment on the limited view. The femoral heads remain well aligned with their respective acetabula on the single AP view. No radiopaque foreign bodies. Right Hip: No fracture or dislocation of the right hip. The femoral head remains well-seated in the acetabulum. The trabecular lines remain intact. Mild degenerative arthropathy of the hip. No suspicious lytic or sclerotic osseous lesions. No focal soft tissue swelling. No radiopaque foreign bodies. XR/XR lumbar spine 2-3V IMPRESSION: 1. No evidence of acute fracture or traumatic subluxation of the lumbar spine, pelvis, or right hip. 2. 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 3. Mild degenerative arthropathy of the right hip. Electronically signed by: aGb Marcelino DO 07/06/2024 09:57 PM EST
--- NOTE | ~2024-07-06 | XR_ITS ---
EXAMINATION: XR LUMBOSACRAL SPINE XR PELVIS XR HIP, RIGHT CLINICAL INFORMATION: Low back pain. COMPARISON: None available. TECHNIQUE: 3 views of the lumbar spine (AP, lateral, and coned lumbosacral junction views). Single AP view of the pelvis. 2 views of the right hip (AP and lateral). FINDINGS: Lumbar Spine: No evidence of acute fracture or subluxation of the lumbosacral spine. Mild degenerative retrolisthesis of L5 on S1. Otherwise, the vertebral bodies and posterior elements are in anatomic alignment. The vertebral body heights are maintained. Moderate degenerative disc disease at L5-S1. Mild degenerative disc disease at all additional levels. Moderate facet arthropathy from L4-S1. There appears to be at least moderate neural foraminal stenoses at L5-S1. Nonobstructive bowel gas pattern is demonstrated in the visualized portions of the abdomen. Changes of prior cholecystectomy. Pelvis: No fracture or dislocation of the pelvis. The iliopectineal, ilioischial, and sacral arcuate lines remain intact. The sacroiliac joints remain in normal alignment on the limited view. The femoral heads remain well aligned with their respective acetabula on the single AP view. No radiopaque foreign bodies. Right Hip: No fracture or dislocation of the right hip. The femoral head remains well-seated in the acetabulum. The trabecular lines remain intact. Mild degenerative arthropathy of the hip. No suspicious lytic or sclerotic osseous lesions. No focal soft tissue swelling. No radiopaque foreign bodies. XR/XR hip RT w PEL1V IMPRESSION: 1. No evidence of acute fracture or traumatic subluxation of the lumbar spine, pelvis, or right hip. 2. 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 3. Mild degenerative arthropathy of the right hip. Electronically signed by: Gab Marcelino DO 07/06/2024 09:57 PM EST
[2024-07-06 18:08] VITALS: BP 103/76; PULSE 85; RESP 16; TEMP 36.6; O2SAT 98; O2SAT 99; BMI 44.8
--- NOTE | 2024-07-06 18:14 | ED_ITS ---
HPI - Fall General Chief Complaint: Seizure Stated Complaint: fall x2hrs, ?3 seizures, bgl 376 Time Seen by Provider: 07/06/24 18:13 Source: patient Mode of arrival: EMS Limitations: no limitations History of Present Illness ED Provider: HPI Narrative: Patient's history of CVAs, seizure disorder, diabetes walks with walker went to take shower off and on while sitting on the stool tried to get up slipped and fell landing on her buttocks hitting her head to the stool without significant injuries no loss of consciousness complaining of pain in lower back and right gluteal area was able to ambulate and walked to the recliner where she had 2 small seizure lasting only for few seconds which is usual for her Related Data Home Medications ?Medication ?Instructions ?Recorded ?Confirmed blood sugar diagnostic (FreeStyle #10 ea 11/01/21 04/17/22 Lite Strips) blood-glucose meter (FreeStyle #1 ea 11/01/21 04/17/22 [place] Lite kit) clonidine HCl 0.2 mg tablet 0.2 mg PO BID 11/01/21 10/22/23 duloxetine 30 mg capsule,delayed 30 mg PO DAILY 11/01/21 10/22/23 release folic acid 1 mg tablet 1 mg PO DAILY 11/01/21 10/22/23 lisinopril 40 mg tablet 40 mg PO DAILY 11/01/21 10/22/23 magnesium oxide 400 mg (241.3 mg 400 mg PO BID 11/01/21 10/22/23 magnesium) tablet metformin 1,000 mg tablet 1,000 mg PO BIDWM 11/01/21 10/22/23 omeprazole 20 mg capsule,delayed 20 mg PO DAILY@0630 11/01/21 10/22/23 release pen needle, diabetic 31 gauge x #50 ea 11/01/21 04/17/2210/04 (Sure Comfort Pen Needle) thiamine HCl (vitamin B1) 100 mg 100 mg PO DAILY 11/01/21 10/22/23 tablet cyclobenzaprine 10 mg tablet 1 tab PO BID PRN muscle spasm 04/02/22 10/22/23 insulin lispro 100 unit/mL See Protocol subcut TIDAC 04/02/22 10/22/23 subcutaneous pen albuterol sulfate 90 mcg/actuation 2 puff inhalation Q6H PRN wheezing 07/31/23 10/22/23 aerosol inhaler (Ventolin HFA) hydroxyzine HCl 25 mg tablet 25 mg PO BID PRN Anxiety 07/31/23 10/22/23 mirtazapine 7.5 mg tablet 7.5 mg PO BEDTIME PRN Insomnia 07/31/23 10/22/23 pregabalin 50 mg capsule 50 mg PO TID 07/31/23 10/22/23 doxepin 25 mg capsule 25 mg PO BEDTIME 10/22/23 10/22/23 dulaglutide 3 mg/0.5 mL 3 mg subcut TU 10/22/23 10/22/23 subcutaneous pen injector (Trulicity) duloxetine 60 mg capsule,delayed 60 mg PO DAILY 10/22/23 10/22/23 release escitalopram oxalate 5 mg/5 mL 20 mg PO QAM 10/22/23 10/22/23 oral solution insulin glargine 100 unit/mL (3 10 unit subcut BID 10/22/23 10/22/23 mL) subcutaneous pen melatonin 10 mg capsule 10 mg PO BEDTIME insomnia 10/22/23 10/22/23 Previous Rx's ?Medication ?Instructions ?Recorded aspirin 81 mg chewable tablet 81 mg PO DAILY #90 tabs 08/01/23 atorvastatin 40 mg tablet 40 mg PO BEDTIME #90 tabs 08/01/23 levetiracetam 1,000 mg tablet 1,500 mg (1.5 x 1,000 mg) PO 10/24/23 BID@0900,1700 #120 tabs morphine 15 mg immediate release 15 mg PO Q6H PRN pain #10 tabs 12/04/23 tablet ondansetron HCl 4 mg tablet 4 mg PO Q8H PRN nausea and 04/13/24 vomiting #14 tabs amoxicillin 875 mg-potassium 1 tab PO Q12H 5 days #10 tabs 04/14/24 clavulanate 125 mg tablet azithromycin 500 mg tablet See Rx Instructions PO .COMPLEX #6 04/14/24 tabs Allergies Allergy/AdvReac Type Severity Reaction Status Date / Time tomato [TOMATO] Allergy Unknown RASH Verified 07/06/24 18:10 Review of Systems Review of Systems: Yes all other systems are reviewed and are negative PMFSH Past Medical History Medical History Transaminitis Cholecystitis, acute with cholelithiasis UTI (urinary tract infection) Asthma Restless leg syndrome Stroke GERD (gastroesophageal reflux disease) Anxiety Depression Insomnia Neuropathy Seizure Hypertension Insulin dependent type 2 diabetes mellitus Morbid obesity Hx of completed stroke Surgical History History of laparoscopic cholecystectomy (04/05/22) History of Family History Family History Mother Diabetes Father Diabetes Alcoholism Social History Social History Household Members: None Housing: Apartment Do you presently have visiting nurse or other home services: Yes (director of bands, [facility]) Alcohol intake: never Patient Tobacco Use Status: Former Tobacco user Tobacco use type: Cigarette Cigarette Packs Per Day: 2 Cigarettes Per Day: 40.0 Years Smoked: 14 Smoked in Last 30 Days: No Use of substances other than those prescribed or required for medical reasons: No Substance Use Type: Marijuana Advance Directives: Yes Advance Directives on File: Yes Advance Directives Date on File: 04/02/22 service: No Current occupational status: unemployed Physical Exam Vital Signs: Vital Signs: Last Vital Signs Temp 97.6 F 07/06/24 21:48 Pulse 75 07/06/24 21:48 Resp 16 07/06/24 21:48 BP 155/82 H 07/06/24 21:48 Pulse Ox 100 07/06/24 21:48 O2 Del Method Room Air 07/06/24 21:48 BMI result Body Mass Index 44.8 Appearance: Alert. Oriented X3. No acute distress. Obese Eyes: PERRLA, No Nystagmus ENT: Pharynx normal. Oral Mucosa moist Neck: Normal inspection. Neck supple. CVS: Normal heart rate and rhythm. Pulses normal. Respiratory: No respiratory distress. Equal air entry bilateral, Abdomen: Soft and nontender. Bowel sounds are present, no mass palpable, no CVA tenderness Skin: Skin warm and dry. Normal skin color. Normal skin turgor. Extremities: No lower extremity edema. No calf tenderness diffuse tenderness right gluteal area and the lower lumbar area Neuro: Oriented X 3. Residual right-sided weakness Medications Administered Discontinued Medications Generic Name Dose Route Start Last Admin Trade Name Freq PRN Reason Stop Dose Admin Insulin Human Lispro 6 unit 07/06/24 20:24 07/06/24 20:33 Insulin Lispro 100 Unit/Ml 3 Ml Vial SUBCUT 07/06/24 20:25 6 unit ONCE ONE Administration Oxycodone HCl 10 mg 07/06/24 18:49 07/06/24 19:15 Oxycodone Hcl Immed Release 5 Mg Tablet PO 07/06/24 18:50 10 mg ONCE ONE Administration Medical Decision Making Medical Decision Making [facility] Narrative: Patient is status post mechanical fall without any significant injuries x-ray of the hip and the lumbar spine negative discharge patient home advised to follow up with her PCP in advised to continue her Keppra for seizures Lab Data [facility] Lab Attestation statement: I reviewed the patient's lab results. Labs: Lab Results 07/06/24 Range/Units 18:21 POC Glucose 307 H (60-115) mg/dL Independent Interpretation I performed an independent interpretation of an: Plain X-Ray Radiology Impression Discussion of test interpretation with radiology: I have reviewed the radiologist's reading. Radiologist Impression: No acute finding Discharge Plan Discharge Clinical Impression: Fall, Seizure Patient Disposition: Home, Self-Care Instructions: Recurrent Seizures in Adults (ED), Fall Prevention (ED) Additional Instructions: Care and cautions as advised Continue take your seizure medications and follow with neurologist Prescriptions: No Action cyclobenzaprine 10 mg tablet 1 tab PO BID PRN (Reason: muscle spasm) insulin lispro 100 unit/mL insulin pen See Protocol subcut TIDAC Protocol: Insulin Correction Scale Less than or equal to 110 ---- Give (units): 0 111 to 150 Give (units): 0 151 to 200 Give (units): 2 201 to 250 Give (units): 4 251 to 300 Give (units): 6 301 to 350 Give (units): 8 Greater than 350 Give (units): 10 Call MD if Blood Glucose > : 350 hydroxyzine HCl 25 mg tablet 25 mg PO BID PRN (Reason: Anxiety) albuterol sulfate [Ventolin HFA] 90 mcg/actuation HFA aerosol inhaler 2 puff INHALATION Q6H PRN (Reason: wheezing) mirtazapine 7.5 mg tablet 7.5 mg PO BEDTIME PRN (Reason: Insomnia) pregabalin 50 mg capsule 50 mg PO TID atorvastatin 40 mg Tablet 40 mg PO BEDTIME Qty: 90 0RF aspirin 81 mg Tablet,Chewable 81 mg PO DAILY Qty: 90 0RF doxepin 25 mg capsule 25 mg PO BEDTIME escitalopram oxalate 5 mg/5 mL solution 20 mg PO QAM duloxetine 60 mg capsule,delayed release(DR/EC) 60 mg PO DAILY Trulicity 3 mg/0.5 mL pen injector 3 mg subcut TU insulin glargine 100 unit/mL (3 mL) insulin pen 10 unit SUBCUT BID melatonin 10 mg capsule 10 mg PO BEDTIME levetiracetam 1,000 mg tablet 1,500 mg PO BID@0900,1700 Qty: 120 0RF morphine 15 mg tablet 15 mg PO Q6H PRN (Reason: pain) Qty: 10 0RF Rx Instructions: partial fill okay; Partial Fill upon patient request. ondansetron HCl 4 mg tablet 4 mg PO Q8H PRN (Reason: nausea and vomiting) Qty: 14 0RF amoxicillin-pot clavulanate 875-125 mg tablet 1 tab PO Q12H 5 Days Qty: 10 0RF azithromycin 500 mg tablet See Rx Instructions .ROUTE .COMPLEX Qty: 6 0RF Rx Instructions: For 250 mg dose pack: take 500 mg today (day 1), then 250 mg for 4 days (days 2-5) omeprazole 20 mg capsule,delayed release(DR/EC) 20 mg PO DAILY@0630 (DME) blood-glucose meter [FreeStyle [place] Lite] Kit See Rx Instructions Not Applicable DAILY Qty: 1 Rx Instructions: As directed thiamine HCl (vitamin B1) 100 mg tablet 100 mg PO DAILY (DME) FreeStyle Lite Strips Strip See Rx Instructions Not Applicable TID Qty: 10 Rx Instructions: As directed duloxetine 30 mg capsule,delayed release(DR/EC) 30 mg PO DAILY magnesium oxide 400 mg (241.3 mg magnesium) tablet 400 mg PO BID folic acid 1 mg tablet 1 mg PO DAILY clonidine HCl 0.2 mg tablet 0.2 mg PO BID lisinopril 40 mg tablet 40 mg PO DAILY metformin 1,000 mg tablet 1,000 mg PO BIDWM (DME) pen needle, diabetic [Sure Comfort Pen Needle] 31 gauge x 3/16 needle See Rx Instructions .ROUTE BID Qty: 50 Rx Instructions: As directed Interventions: ED Discharge Assessment Last Done: 07/06/24 21:48 Discharge Date/Time: 07/06/24 22:31 Print Language: [place]i
[2024-07-06 18:18] VITALS: BP 158/96
[2024-07-06 18:29] LABS: Glucose, Whole Blood 307 mg/dL (60-115)
--- OUTSIDE RECORDS SUMMARY | 2024-07-06 19:00 | XMS_ITS | Clinical Summary ---
Author Organization Unknown Care Team Providers Care Signing Teacher Name Role Phone KIRILL STEWART, MARICRUZ Unavailable Unavailable NAJMA IVERSON, VACUUM PAN TENDER, ELISABET Zuniga able Unavailable WHIT IVERSON, SUE Unavailable Unavailable Payers Payer Name Policy Type Policy Number Effective Date Expira tion Date MEDICAID [facility] [id number] Problems Condition Name Condition Details Condition Category Status Onset Date Resolution Date Last Treatment Date Treating Clinician Comments SCHIZOPHRENI A, UNSPECIFIED Active 2018-07 00:00: 00 TYPE 2 DIABETES MELLITUS WITHOUT COMPLICATION S Active 2020-07 00:00: 00 ESSENTIAL (PRIMARY) HYPERTENSION Active 2020-07 00:00: 00 Allergies, Adverse Reactions, Alerts Allergy Name Allergy Type Status Severity Reaction(s) Onset Date Inactive Date Treating Clinician Comments NKA Propensity to adverse reactions Active 2021-04 17:04:4 1 Medications Ordered Medication Name Filled Medication Name Start Date Stop Date Current Medication? Ordering Clinician Indication Dosage Frequency Signature (SIG) Comments Components Alcohol Prep Pads 2020-07 0 00:00: 00 10-29 23:59 :00 No [id number] Per instruc tions DIRECTED Per instructio ns DIRECTED (route: topical) Med Classific ation: Antisepti cs and Disinfect ants Flovent HFA 110 mcg/actuati on aerosol inhaler 2020-07 0 00:00: 00 Yes [id number] Per instruc tions TWICE DAILY Per instructio ns TWICE DAILY (route: inhalation ) Med Classific ation: Respirato ry Therapy Agents nystatin 100,000 unit/mL oral suspension 2020-07 013 00:00: 00 05-06 23:59 :00 No [id number] Per instruc tions FOUR TIMES DAILY Per instructio ns FOUR TIMES DAILY (route: oral) Med Classific ation: Mouth-Thr oat-Denta l - Preparati ons duloxetine 30 mg capsule,del ayed release 2020-07 00:00: 00 05-06 23:59 :00 No [id number] Per instruc tions AT BEDTIME Per instructio ns AT BEDTIME (route: oral) Med Classific ation: Central Nervous System Agents doxazosin 1 mg tablet 2020-07 0 00:00: 00 08-26 23:59 :00 No [id number] 1 mg AT BEDTIME 1 mg AT BEDTIME (route: oral) Med Classific ation: Cardiovas cular Therapy Agents melatonin 5 mg tablet 2020-07 00:00: 00 Yes [id number] 5 mg AT BEDTIME 5 mg AT BEDTIME (route: oral) Med Classific ation: Central Nervous System Agents Certavite-A ntioxidant 18 mg-400 mcg tablet 2020-07 00:00: 00 05-06 23:59 :00 No [id number] Per instruc tions EVERY Per instructio ns EVERY (route: oral) Med Classific ation: Electroly te Balance-N utritiona l Products thiamine HCl (vitamin B1) 100 mg tablet 2020-07 00:00: 00 Yes [id number] 100 tablet EVERY 100 tablet EVERY (route: oral) Med Classific ation: Electroly te Balance-N utritiona l Products magnesium oxide 400 mg (241.3 mg magnesium) tablet 2020-07 00:00: 00 Yes [id number] 400 mg TWICE DAILY 400 mg TWICE DAILY (route: oral) Med Classific ation: Electroly te Balance-N utritiona l Products folic acid 1 mg tablet 2020-07 0 00:00: 00 Yes [id number] 1 mg EVERY 1 mg EVER Y (route: oral) Med Classific ation: Electroly te Balance-N utritiona l Products omeprazole 20 mg capsule,del ayed release 2020-07 0 00:00: 00 08-26 23:59 :00 No [id number] 20 mg EVERY 20 mg EVERY (route: oral) Med Classific ation: Gastroint estinal Therapy Agents clonazepam 0.5 mg tablet 2020-07 0 00:00: 00 08-26 23:59 :00 No [id number] 0.5 mg EVERY DAY AT 0.5 mg EVERY DAY AT (route: oral) Med Classific ation: Central Nervous System Agents clonidine HCl 0.2 mg tablet 2020-07 007 00:00: 00 Yes [id number] 0.2 mg TWICE DAILY 0.2 mg TWICE DAILY (route: oral) Med Classific ation: Cardiovas cular Therapy Agents cyclobenzap rine 10 mg tablet 2020-07 0 00:00: 00 05-06 23:59 :00 No [id number] Per instruc tions AT AT AT BEDTIME Per instructio ns AT AT AT BEDTIME (route: oral) Med Classific ation: Locomotor System Humalog KwikPen (U-100) Insulin 100 unit/mL subcutaneou s 2020-07 00:00: 00 05-06 23:59 :00 No [id number] Per instruc tions SUBCUTANEO USLY THREE TIMES DAILY BEFORE MEALS DIRECTED Per instructio ns SUBCUTANEO USLY THREE TIMES DAILY BEFORE MEALS DIRECTED (route: subcutaneo us) Med Classific ation: Endocrine Ambien 10 mg tablet 2020-07 00:00: 00 06-29 23:59 :00 No [id number] 10 mg BEDTIME 10 mg BEDTIME (route: oral) Med Classific ation: Central Nervous System Agents cyclobenzap rine 10 mg tablet 2020-07 017 00:00: 00 08-26 23:59 :00 No [id number] 10 mg BEDTIME 10 mg BEDTIME (route: oral) Med Classific ation: Locomotor System cyclobenzap rine 10 mg tablet 2020-0716 00:00: 00 08-26 23:59 :00 No [id number] 10 mg 2 TIMES DAILY 10 mg 2 TIMES DAILY (route: oral) Med Classific ation: Locomotor System Cymbalta 60 mg capsule,del ayed release 2020-07 016 00:00: 00 08-26 23:59 :00 No [id number] 60 capsule BEDTIME 60 capsule BEDTIME (route: oral) Med Classific ation: Central Nervous System Agents duloxetine 30 mg capsule,del ayed release 2020-07 0-16 00:00: 00 08-26 23:59 :00 No [id number] 30 mg 2 TIMES DAILY 30 mg 2 TIMES DAILY (route: oral) Med Classific ation: Central Nervous System Agents gabapentin 600 mg tablet 2020-0716 00:00: 00 05-08 23:59 :00 No [id number] 600 mg 3 TIMES DAILY 600 mg 3 TIMES DAILY (route: oral) Med Classific ation: Central Nervous System Agents Humalog KwikPen (U-100) Insulin 100 unit/mL subcutaneou s 2020-07 00:00: 00 06-02 23:59 :00 No [id number] 0 In unit DIRECTED 0 In unit DIRECTED ([facility] Med Classific ation: Endocrine Lantus U-100 Insulin 100 unit/mL subcutaneou s solution 2020-07 00:00: 00 08-26 23:59 :00 No [id number] 8 unit EVERY AM 8 unit EVERY AM (route: subcutaneo us) Med Classific ation: Endocrine Lantus U-100 Insulin 100 unit/mL subcutaneou s solution 2020-0716 00:00: 00 Yes [id number] 35 unit BEDTIME 35 unit BEDTIME (route: subcutaneo us) Med Classific ation: Endocrine levetiracet am 1,000 mg tablet 2020-0716 00:00: 00 Yes [id number] 1000 mg 2 TIMES DAILY 1000 mg 2 TIMES DAILY (route: oral) Med Classific ation: Central Nervous System Agents lisinopril 40 mg tablet 2020-07-16 00:00: 00 Yes [id number] 40 mg DAILY 40 mg DAILY (route: oral) Med Classific ation: Cardiovas cular Therapy Agents metformin 1,000 mg tablet 2020-07 0-16 00:00: 00 Yes [id number] 1000 mg 2 TIMES DAILY 1000 mg 2 TIMES DAILY (route: oral) Med Classific ation: Endocrine multivitami n tablet 2020-07-16 00:00: 00 Yes [id number] 1 tablet DAILY 1 tablet DAILY (route: oral) Med Classific ation: Electroly te Balance-N utritiona l Products ondansetron HCl 8 mg tablet 2020-0716 00:00: 00 08-26 23:59 :00 No [id number] 8 mg NEEDED 8 mg NEEDED (route: oral) Med Classific ation: Gastroint estinal Therapy Agents ProAir HFA 90 mcg/actuati on aerosol inhaler 2020-07 00:00: 00 Yes [id number] 2 puff NEEDED 2 puff NEEDED (route: inhalation ) Med Classific ation: Respirato ry Therapy Agents ropinirole 0.5 mg tablet 2020-07 00:00: 00 Yes [id number] 0.5 mg BEDTIME 0.5 mg BEDTIME (route: oral) Med Classific ation: Central Nervous System Agents simethicone 80 mg chewable tablet 2020-07 00:00: 00 08-26 23:59 :00 No [id number] 80 mg NEEDED 80 mg NEEDED (route: oral) Med Classific ation: Gastroint estinal Therapy Agents Trulicity 1.5 mg/0.5 mL subcutaneou s pen injector 2020-07 00:00: 00 Yes [id number] 1.5 mg WEEKLY 1.5 mg WEEKLY (route: subcutaneo ) Med Classific ation: Endocrine Tums 200 mg calcium (500 mg) chewable tablet 2020-07 00:00: 00 08-26 23:59 :00 No [id number] 200 mg NEEDED 200 mg NEEDED (route: oral) Med Classific ation: Gastroint estinal Therapy Agents gabapentin 600 mg tablet 2020-0718 00:00: 00 08-26 23:59 :00 No [id number] 600 mg 3 TIMES DAILY 600 mg 3 TIMES DAILY (route: oral) Med Classific ation: Central Nervous System Agents Humalog KwikPen (U-100) Insulin 100 unit/mL subcutaneou s 2020-07 00:00: 00 Yes [id number] Per instruc tions 3 TIMES DAILY Per instructio ns 3 TIMES DAILY (route: subcutaneo us) Med Classific ation: Endocrine cyclobenzap rine 10 mg tablet 08-29 00:00: 00 Yes [id number] 10 mg 3 TIMES DAILY 10 mg 3 TIMES DAILY (route: oral) Med Classific ation: Locomotor System doxazosin 1 mg tablet 08-29 00:00: 00 Yes 2 tablet BEDTIME 2 tablet BEDTIME (route: oral) Med Classific ation: Cardiovas cular Therapy Agents duloxetine 30 mg capsule,del ayed release - 00:00: 00 Yes 30 mg BEDTIME 30 mg BEDTIME (route: oral) Med Classific ation: Central Nervous System Agents duloxetine 60 mg capsule,del ayed release 08-29 00:00: 00 Yes 1 capsule BEDTIME 1 capsule BEDTIME (route: oral) Med Classific ation: Central Nervous System Agents gabapentin 600 mg tablet 08-29 00:00: 00 Yes 2 tablet 3 TIMES DAILY 2 tablet 3 TIMES DAILY (route: oral) Med Classific ation: Central Nervous System Agents Lantus U-100 Insulin 100 unit/mL subcutaneou s solution 08-29 00:00: 00 Yes 10 unit EVERY AM 10 unit EVERY AM ([facility]) Med Classific ation: Endocrine omeprazole 20 mg capsule,del ayed release 08-29 00:00: 00 Yes 1 capsule DAILY 1 capsule DAILY (route: oral) Med Classific ation: Gastroint estinal Therapy Agents Plan of Treatment Planned Activity Planned Date Details Comments Future Scheduled Test SKILLED NU RSE TO EVALUATE PATIENT, IDENTIFY PRIMARY AND CO-MORBID CONDITIONS CODED PER CODING GUIDELINES, AND DEVELOP PATIENT SPECIFIC PLAN OF CARE THAT INCLUDES PATIENT GOAL FOR HOME HEALTH. CLINICAL SUMMARY (RECERT) RECERTIFICATION VISIT FOR 46 YEAR OLD FEMALE WELL KNOWN TO THIS AGENCY. SHE HAS SCHZOPHRENIA, IDDM, AND HAS A HISTORY OF STROKE WITH WEAK RIGHT SIDE. SHE IS WHEELCHAIR BOUND, BUT ABLE TO STAND/PIVOT BY HERSELF AND CAN WALK SMALL DISTANCES WITH WALKER AND STANDBY. SHE LIVES ALONE IN A [place] ACCESSIBLE APARTMENT, AND KEEPS IN TOUCH WITH FAMILY AND HAS FREQUENT VISITORS. HER MEDS HAVE RECENTLY BEEN CHANGED DUE TO CHANGING PSYCHOLOGISTS. SEVERAL MEDS INCLUDING CLONAZEPAM STOPPED COLD [place] BY PREVIOUS DOCTOR. THEY REPORT SHE MISSED TOO MANY APPOINTMENTS WITHOUT A CALL AND WAS DISCHARGED. MEDICATION MACHINE FILLED FOR 1 WEEK, MED REFILLS CALLED IN TO PHARMACY. RN TO HELP WITH TRULICITY DOSING WHEN REQUESTED. SN 1W9 FOR ASSESSMENT OF MOOD, COPING, MED COMPLIANCE, MED PREFILL, HOME SAFETY. [code = SKILLED NURSE TO EVALUATE PATIENT, IDENTIFY PRIMARY AND CO-MORBID CONDITIONS CODED PER CODING GUIDELINES, AND DEVELOP PATIENT SPECIFIC PLAN OF CARE THAT INCLUDES PATIENT GOAL FOR HOME HEALTH. CLINICAL SUMMARY (RECERT) RECERTIFICATION VISIT FOR 46 YEAR OLD FEMALE WELL KNOWN TO THIS AGENCY. SHE HAS SCHZOPHRENIA, IDDM, AND HAS A HISTORY OF STROKE WITH WEAK RIGHT SIDE. SHE IS WHEELCHAIR BOUND, BUT ABLE TO STAND/PIVOT BY HERSELF AND CAN WALK SMALL DISTANCES WITH WALKER AND STANDBY. SHE LIVES ALONE IN A [place] HAND[place] ACCESSIBLE APARTMENT, AND KEEPS IN TOUCH WITH FAMILY AND HAS FREQUENT VISITORS. HER MEDS HAVE RECENTLY BEEN CHANGED DUE TO CHANGING PSYCHOLOGISTS. SEVERAL MEDS INCLUDING CLONAZEPAM STOPPED COLD [place] BY PREVIOUS DOCTOR. THEY REPORT SHE MISSED TOO MANY APPOINTMENTS WITHOUT A CALL AND WAS DISCHARGED. MEDICATION MACHINE FILLED FOR 1 WEEK, MED REFILLS CALLED IN TO PHARMACY. RN TO HELP WITH TRULICITY DOSING WHEN REQUESTED. SN 1W9 FOR ASSESSMENT OF MOOD, COPING, MED COMPLIANCE, MED PREFILL, HOME SAFETY.] Future Scheduled Test SKILLED NU RSE TO O/A OF PATIENTS MENTAL/BEHAVIORAL STATUS, ASSESS VITAL SIGNS MONTHLY OR NEEDED. ALLOW 2 PRNS FOR MEDICATION MANAGEMENT. [code = SKILLED NURSE TO O/A OF PATIENTS MENTAL/BEHAVIORAL STATUS, ASSESS VITAL SIGNS MONTHLY OR NEEDED. ALLOW 2 PRNS FOR MEDICATION MANAGEMENT.] Future Scheduled Test SKILLED NU RSE TO PREFILL MEDMINDER MACHINE PER MEDICATION LIST WEEKLY. [code = SKILLED NURSE TO PREFILL MEDMINDER MACHINE PER MEDICATION LIST WEEKLY.] Future Scheduled Test SKILLED NU RSE FOR O/A OF ALTERED THOUGHT PROCESS AND/OR DISRUPTION IN COGNITIVE OPERATIONS AND ACTIVITIES. [code = SKILLED NURSE FOR O/A OF ALTERED THOUGHT PROCESS AND/OR DISRUPTION IN COGNITIVE OPERATIONS AND ACTIVITIES.] Future Scheduled Test SKILLED NU RSE MAY PICKUP AND TRANSPORT MEDICATIONS [code = SKILLED NURSE MAY PICKUP AND TRANSPORT MEDICATIONS] Future Scheduled Test SKILLED NU RSE FOR O/A OF CLIENT'S KNOWLEDGE OF DISEASE PROCESS AND MANAGEMENT. MAY TEACH DISEASE MANAGEMENT TECHNIQUES DESIGNED TO INCREASE CLIENT'S FUNCTIONAL STATUS. [code = SKILLED NURSE FOR O/A OF CLIENT'S KNOWLEDGE OF DISEASE PROCESS AND MANAGEMENT. MAY TEACH DISEASE MANAGEMENT TECHNIQUES DESIGNED TO INCREASE CLIENT'S FUNCTIONAL STATUS.] Future Scheduled Test SKILLED NU RSE FOR O/A OF GENERAL HEALTH STATUS OF PAIN, CARDIAC, RESPIRATORY, GASTROINTESTINAL, GENITOURINARY, SKIN, NEUROLOGIC, ENDOCRINE SYSTEMS TO IDENTIFY CHANGES ASSOCIATED WITH EXACERBATION FOR EARLY INTERVENTION OF COMPLICATIONS WEEKLY [code = SKILLED NURSE FOR O/A OF GENERAL HEALTH STATUS OF PAIN, CARDIAC, RESPIRATORY, GASTROINTESTINAL, GENITOURINARY, SKIN, NEUROLOGIC, ENDOCRINE SYSTEMS TO IDENTIFY CHANGES ASSOCIATED WITH EXACERBATION FOR EARLY INTERVENTION OF COMPLICATIONS WEEKLY] Future Scheduled Test SKILLED NU RSE TO REVIEW PATIENT MEDICATIONS. INSTRUCT PATIENT/CAREGIVER ON MONITORING OF EFFECTIVENESS, ADVERSE DRUG REACTIONS, SIDE EFFECTS OF ALL MEDICATIONS (PRESCRIPTION/-OTC), AND HOW AND WHEN TO REPORT PROBLEMS. [code = SKILLED NURSE TO REVIEW PATIENT MEDICATIONS. INSTRUCT PATIENT/CAREGIVER ON MONITORING OF EFFECTIVENESS, ADVERSE DRUG REACTIONS, SIDE EFFECTS OF ALL MEDICATIONS (PRESCRIPTION/-OTC), AND HOW AND WHEN TO REPORT PROBLEMS. ] Future Scheduled Test SKILLED NU RSE FOR O/A OF DEPRESSIVE SYMPTOMS, SN TO REPORT SIGNIFICANT CHANGE IN DEPRESSIVE SYMPTOMS TO CLINICAL PROVIDER FOR EARLY INTERVENTION. [code = SKILLED NURSE FOR O/A OF DEPRESSIVE SYMPTOMS, SN TO REPORT SIGNIFICANT CHANGE IN DEPRESSIVE SYMPTOMS TO CLINICAL PROVIDER FOR EARLY INTERVENTION.] Future Scheduled Test SKILLED NU RSE TO O/A PATIENT'S PAIN LEVEL AND EFFECTIVENESS OF PAIN CONTROL THERAPY. SN TO REPORT INCREASE IN PAIN LEVEL TO PHYSICIAN FOR PROMPT INTERVENTION. [code = SKILLED NURSE TO O/A PATIENT'S PAIN LEVEL AND EFFECTIVENESS OF PAIN CONTROL THERAPY. SN TO REPORT INCREASE IN PAIN LEVEL TO PHYSICIAN FOR PROMPT INTERVENTION.] Future Scheduled Test SKILLED NU RSE TO PROVIDE INSTRUCTION ON FALL PREVENTION MEASURES. [code = SKILLED NURSE TO PROVIDE INSTRUCTION ON FALL PREVENTION MEASURES.] Future Scheduled Test SKILLED NU RSE FOR ADMINISTRATION NEEDED AND TEACHING OF PRESCRIBED INJECTION THERAPY FOR TRULICITY [code = SKILLED NURSE FOR ADMINISTRATION NEEDED AND TEACHING OF PRESCRIBED INJECTION THERAPY FOR TRULICITY] Future Scheduled Test PATIENT MA Y HAVE ONE SET OF EMERGENCY MEDICATION NOT TO BE PRE-POURED ANY SOONER THAN 24 HOURS BEFORE SEVERE INCLEMENT WEATHER AND FOLLOWING SKILLED NURSE EVALUATION OF PATIENT SAFETY. [code = PATIENT MAY HAVE ONE SET OF EMERGENCY MEDICATION NOT TO BE PRE-POURED ANY SOONER THAN 24 HOURS BEFORE SEVERE INCLEMENT WEATHER AND FOLLOWING SKILLED NURSE EVALUATION OF PATIENT SAFETY.] Goal 2021-08-30 Patient Goal - TAKING MY INS ULIN Goal 2021-06-30 Patient Goal - TAKING MY INS ULIN Goal 2021-10-30 Patient Goal - TAKING MY INS ULIN Goal 2021-12-29 Patient Goal - TAKING MY INS ULIN Goal 2022-02-26 Patient Goal - TAKING MY INS ULIN Goal 2022-04-26 Patient Goal - TAKING MY INS ULIN Goal 2022-06-29 Patient Goal - TAKING MY INS ULIN Goal 2022-08-27 Patient Goal - TAKING MY INS ULIN Goal 2022-10-23 Patient Goal - TAKING MY INS ULIN Goal Provider Goal - A PLAN OF CARE WILL BE ESTABLISHED THAT MEETS PATIENT'S LONGTERM NEEDS AND INCLUDES PATIENT GOAL FOR HOME HEALTH. Goal Provider Goal - ALTERED MENTAL/BEHAVIORAL STATUS WILL BE IDENTIFIED PROMPTLY AND INTERVENTION INITIATED QUICKLY TO MINIMIZE ASSOCIATED RISKS Goal Provider Goal - PATIENT WILL COMPLY WITH MEDICATION WHEN SKILLED NURSE PRE-POURS MEDICATION. Goal Provider Goal - PATIENT WILL BE ABLE TO PERFORM DAILY FUNCTIONS AND HAVE OPTIMAL IMPROVEMENT IN THOUGHT PROCESS Goal Provider Goal - Goal Provider Goal - PATIENT WILL DEMONSTRATE IMPROVED MANAGEMENT SKILLS IN DEALING WITH CURRENT DISEASE PROCESS BY THE END OF THE CERTIFICATION PERIOD. Goal Provider Goal - CHANGE IN GENERAL HEALTH STATUS WILL BE IDENTIFIED AND REPORTED TO PHYSICIAN FOR PROMPT INTERVENTION TO MINIMIZE ASSOCIATED RISKS THROUGHOUT CERTIFICATION PERIOD. Goal Provider Goal - PATIENT/CAREGIVER WILL VERBALIZE UNDERSTANDING OF EDUCATION PROVIDED ON MEDICATIONS BY THE END OF THE CERTIFICATION PERIOD. Goal Provider Goal - PATIENT WILL REMAIN SAFE WITHOUT DECOMPENSATION IN DEPRESSIVE CONDITION. PATIENTS MOOD AND MENTAL STATUS WILL EVIDENCE OPTIMAL LEVEL OF FUNCTIONING. Goal Provider Goal - PATIENT/CAREGIVER WILL DEMONSTRATE UNDERSTANDING OF PHARMACOLOGIC AND NONPHARMACOLOGIC PAIN CONTROL MEASURES AND PATIENT WILL HAVE IMPROVEMENT IN PAIN INTERFERING WITH ACTIVITY EVIDENCED BY PAIN CONTROLLED AT LEVEL OF 4 OR LESS BY END OF CERTIFICATION PERIOD. Goal Provider Goal - PATIENT/CAREGIVER DEMONSTRATES UNDERSTANDING OF FALL PREVENTION MEASURES BY THE END OF THE CERTIFICATION PERIOD. Goal Provider Goal - PATIENT WILL RECEIVE INJECTION ORDERED. PATIENT/CAREGIVER WILL VERBALIZE/DEMONSTRATE KNOWLEDGE OF INJECTION THERAPY BY THE END OF THE CERTIFICATION PERIOD. Reason for Visit INDEPENDENT WITH USE OF ASSISTIVE DEVICE Encounters Start Date/Time End Date/Time Encounter Type Admission Type Attending [facility] Care Department Encounter ID Discharge Date Discharge Status Discharge Condition Discharge Reason Percent Goals Met 2021-05-06 00:00:00 2022-10-23 00:00:00 Outpatient RECERTIFIC ATION [facility] [id number] 2820-04-04 00:00:00 DISCHARGE TO HOME OR SELF CARE INDEPENDEN T WITH USE OF ASSISTIVE DEVICE NON COMPLIANT WITH PLAN OF TREATMENT 33.33
[2024-07-06] MEDS: oxyCODONE HCl Immed Release 5 MG TABLET 10 MG PO (19:15)
[2024-07-06 20:00] VITALS: BP 155/82; PULSE 75; RESP 16; TEMP 36.4; O2SAT 100
[2024-07-06] MEDS: Insulin Lispro 100 UNIT/ML 3 ML VIAL 6 UNIT SUBCUT (20:33)
[2024-07-06 21:48] VITALS: BP 155/82; PULSE 75; RESP 16; TEMP 36.4; O2SAT 100
== END 2024-07-06 22:31 | disposition home or self-care (01) ==
PROVIDERS: Emergency Provider Internal Medicine; PCP Nurse Practitioner Primary Care
DX: S09.90XA Unspecified injury of head, initial encounter (principal); M54.50 Low back pain, unspecified; M25.551 Pain in right hip; R56.9 Unspecified convulsions; W01.190A Fall on same level from slipping, tripping and stumbling with subsequent striking against furniture, initial encounter; Y93.89 Activity, other specified; Y92.89 Other specified places as the place of occurrence of the external cause; Y99.8 Other external cause status; Z79.899 Other long term (current) drug therapy
CPT/HCPCS: 72100; 73502; 82947; 99283; 99284

== ENCOUNTER 2024-07-21 11:56 | Emergency (ER) | payer MEDICAID, SELFPAY ==
--- NOTE | ~2024-07-21 | US_ITS ---
EXAMINATION: US TRIPLEX LOWER EXTREMITY, RIGHT CLINICAL INFORMATION: Pain and swelling. COMPARISON: None available. TECHNIQUE: Color-flow triplex imaging with spectral analysis and compression Doppler were performed on the right lower extremity. FINDINGS: Respiratory variation, normal compression and augmented flow are noted throughout the right lower extremity. The visualized common femoral vein, superficial femoral vein, profunda femoral vein, popliteal vein and midcalf peroneal and posterior tibial venous segments show no evidence of deep venous thrombosis. There is no Swann's cyst. US/US venous duplex LE RT IMPRESSION: No evidence of deep venous thrombosis involving the right lower extremity. Electronically signed by: John Mckeon MD 07/21/2024 01:56 PM EST
[2024-07-21 12:04] VITALS: BP 132/108; PULSE 93; O2SAT 99
--- NOTE | 2024-07-21 12:34 | ED.GENADULT ---
HPI - General Adult General Chief complaint: Extremity Problem Stated complaint: LLE BURNING/THROBBING PAIN/SWELLING,CONF X2D Time Seen by Provider: 07/21/24 19:20 Source: patient Limitations: no limitations History of Present Illness ED Provider: Alexandra Bunn PA-C HPI narrative: 48-year-old female with a history of morbid obesity, prior stroke with residual right-sided deficits, DM, hypertension chronic right-sided pain with neuropathy, anxiety and depression, presents with left lower extremity swelling x2 days. No injury, no overlying redness, swelling or fever. Related Data Home Medications ?Medication ?Instructions ?Recorded ?Confirmed blood sugar diagnostic (FreeStyle #10 ea 11/01/21 04/17/22 Lite Strips) blood-glucose meter (FreeStyle #1 ea 11/01/21 04/17/22 [place] Lite kit) clonidine HCl 0.2 mg tablet 0.2 mg PO BID 11/01/21 10/22/23 duloxetine 30 mg capsule,delayed 30 mg PO DAILY 11/01/21 10/22/23 release folic acid 1 mg tablet 1 mg PO DAILY 11/01/21 10/22/23 lisinopril 40 mg tablet 40 mg PO DAILY 11/01/21 10/22/23 magnesium oxide 400 mg (241.3 mg 400 mg PO BID 11/01/21 10/22/23 magnesium) tablet metformin 1,000 mg tablet 1,000 mg PO BIDWM 11/01/21 10/22/23 omeprazole 20 mg capsule,delayed 20 mg PO DAILY@0630 11/01/21 10/22/23 release pen needle, diabetic 31 gauge x #50 ea 11/01/21 04/17/2210/04 (Sure Comfort Pen Needle) thiamine HCl (vitamin B1) 100 mg 100 mg PO DAILY 11/01/21 10/22/23 tablet cyclobenzaprine 10 mg tablet 1 tab PO BID PRN muscle spasm 04/02/22 10/22/23 insulin lispro 100 unit/mL See Protocol subcut TIDAC 04/02/22 10/22/23 subcutaneous pen albuterol sulfate 90 mcg/actuation 2 puff inhalation Q6H PRN wheezing 07/31/23 10/22/23 aerosol inhaler (Ventolin HFA) hydroxyzine HCl 25 mg tablet 25 mg PO BID PRN Anxiety 07/31/23 10/22/23 mirtazapine 7.5 mg tablet 7.5 mg PO BEDTIME PRN Insomnia 07/31/23 10/22/23 pregabalin 50 mg capsule 50 mg PO TID 07/31/23 10/22/23 doxepin 25 mg capsule 25 mg PO BEDTIME 10/22/23 10/22/23 dulaglutide 3 mg/0.5 mL 3 mg subcut TU 10/22/23 10/22/23 subcutaneous pen injector (Trulicity) duloxetine 60 mg capsule,delayed 60 mg PO DAILY 10/22/23 10/22/23 release escitalopram oxalate 5 mg/5 mL 20 mg PO QAM 10/22/23 10/22/23 oral solution insulin glargine 100 unit/mL (3 10 unit subcut BID 10/22/23 10/22/23 mL) subcutaneous pen melatonin 10 mg capsule 10 mg PO BEDTIME insomnia 10/22/23 10/22/23 Previous Rx's ?Medication ?Instructions ?Recorded aspirin 81 mg chewable tablet 81 mg PO DAILY #90 tabs 08/01/23 atorvastatin 40 mg tablet 40 mg PO BEDTIME #90 tabs 08/01/23 levetiracetam 1,000 mg tablet 1,500 mg (1.5 x 1,000 mg) PO 10/24/23 BID@0900,1700 #120 tabs morphine 15 mg immediate release 15 mg PO Q6H PRN pain #10 tabs 12/04/23 tablet ondansetron HCl 4 mg tablet 4 mg PO Q8H PRN nausea and 04/13/24 vomiting #14 tabs amoxicillin 875 mg-potassium 1 tab PO Q12H 5 days #10 tabs 04/14/24 clavulanate 125 mg tablet azithromycin 500 mg tablet See Rx Instructions PO .COMPLEX #6 04/14/24 tabs Allergies Allergy/AdvReac Type Severity Reaction Status Date / Time tomato [TOMATO] Allergy Unknown RASH Verified 07/21/24 12:37 Review of Systems Review of Systems: Yes all other systems are reviewed and are negative Constitutional: Constitutional: Denies fatigue and Denies fever(s) Cardiovascular: Cardiovascular: Denies chest pain and Denies dyspnea Respiratory: Respiratory: Denies dyspnea Gastrointestinal: Gastrointestinal: Denies abdominal pain Musculoskeletal: Musculoskeletal: Denies arthralgias and Denies joint swelling Integumentary/Breasts: Skin/Breast: Denies erythema and Denies wounds Endocrine: Endocrine: Denies fatigue PMFSH Past Medical History Attestation statement: The following information was validated with the patient. Medical History Transaminitis Cholecystitis, acute with cholelithiasis UTI (urinary tract infection) Asthma Restless leg syndrome Stroke GERD (gastroesophageal reflux disease) Anxiety Depression Insomnia Neuropathy Seizure Hypertension Insulin dependent type 2 diabetes mellitus Morbid obesity Hx of completed stroke Surgical History History of laparoscopic cholecystectomy (04/05/22) History of Family History Family History Mother Diabetes Father Diabetes Alcoholism Social History Social History Household Members: None Housing: Apartment Do you presently have visiting nurse or other home services: Yes (supervisor paint, [facility]) Alcohol intake: never Patient Tobacco Use Status: Former Tobacco user Tobacco use type: Cigarette Cigarette Packs Per Day: 2 Cigarettes Per Day: 40.0 Years Smoked: 14 Substance Use Type: Marijuana Advance Directives: Yes Advance Directives on File: Yes Advance Directives Date on File: 04/02/22 service: No Current occupational status: unemployed Physical Exam ED Vital Signs: Vital Signs - 24 hr 07/21/24 12:35 07/21/24 19:46 Temperature 97 F 97.5 F Pulse Rate 75 76 Respiratory Rate 16 16 Blood Pressure 127/91 H 114/63 Pulse Oximetry 99 98 Oxygen Delivery Method Room Air Room Air BMI result Body Mass Index 39.9 Const Other: Awake appears older than stated age Orientation/consciousness: patient oriented x3 Resp Other: Nonlabored respiration Cardio Other: Normal peripheral perfusion Skin Other: Warm dry no rash Neuro General: patient oriented x3 and CN's II-XI intact bilaterally Extrem Other: No overlying erythema or warmth over the knee, there is no significant difference in caliber of the calf versus the left lower extremity. No deformity, Psych Other: Cooperative Course Course Course Narrative: This is a rapid medical exam performed by Sherwin Yeager NP: Additional HPI, ROS, PE not included below will be deferred to primary provider. Patient is a 48-year-old female with pmhx seizure disorder, asthma, stroke, IDT2DM, HTN, neuropathy presenting from home at advice of visiting nurse with left lower leg pain and swelling. She states her BP and HR were elevated at home which is why [facility] sent her in. BP 127/91, HR 78 in triage. Plan: labs, U/S Received call from U/S stating that patient reports symptoms are to her right leg. Patient stated left leg in triage. Tech will obtain RLE U/S. Medical Decision Making Medical Decision Making MDM Narrative: 48-year-old female with a history of morbid obesity, prior stroke with residual right-sided deficits, DM, hypertension chronic right-sided pain with neuropathy, anxiety and depression, presents with left lower extremity swelling x2 days. No injury, no overlying redness, swelling or fever. Problem: Immobility prior stroke with right-sided weakness, diabetes History: Per patient I have considered the following differential diagnoses: DVT, septic effusion, fracture, dislocation, chronic pain Plan: Screening labs including a DVT study obtained from triage, no abnormality. This is not a septic joint, she does not have a white count, there was no erythema or warmth of the joint of the ankle or the knee, I am able to passively range it, she can not actively range it secondary to her stroke. Clearly no fracture or dislocation, there was no trauma. No need for x-rays. This is her chronic ongoing right-sided Pain with neuropathy. I have independently reviewed the following tests: Labs: Slight leukocytosis, not anemic, no electrolyte abnormality DVT right lower extremity: US/US venous duplex LE RT IMPRESSION: No evidence of deep venous thrombosis involving the right lower extremity. Electronically signed by: John Mckeon MD 07/21/2024 01:56 PM [facility] Lab Data 07/21/24 12:42 07/21/24 12:41 Labs: Lab Results 07/21/24 07/21/24 Range/Units 12:41 12:42 WBC 11.3 H (4.8-10.8) X10*3/uL RBC 5.48 (4.20-5.50) X10*6/uL Hgb 14.6 (12.0-16.0) g/dl Hct 42.6 (37.0-47.0) % MCV 77.7 L (80.0-98.0) fL MCH 26.6 L (27.0-33.0) pg MCHC 34.3 (31.0-35.0) g/dl RDW 14.3 (11.0-16.0) % Plt Count 298 D (160-400) X10*3/uL MPV 10.3 (9.4-12.3) fL Immature Gran % (Auto) 0.4 (0.0-0.4) % Neut % (Auto) 53.9 (45-73) % Lymph % (Auto) 35.0 (20-40) % [place] % (Auto) 7.4 (2-11) % Eos % (Auto) 2.4 (0-4) % Baso % (Auto) 0.9 (0-2) % Lymph # (Auto) 4.0 (1.2-4.9) X10*3/uL [place] # (Auto) 0.8 (0.1-1.2) X10*3/uL Eos # (Auto) 0.3 (0.0-0.4) X10*3/uL Baso # (Auto) 0.1 (0.0-0.2) X10*3/uL Abs Immat Gran (auto) 0.04 H (0.00-0.03) X10*3/uL Absolute Neuts (auto) 6.1 (2.0-8.3) x10*3/uL Absolute Nucleated RBC 0.000 (0.0-0.012) X10*3/uL Nucleated RBC % (auto) 0.0 (0.0-0.2) /100WBC PT 12.6 H (10.9-12.4) SEC INR 1.1 (0.9-1.1) Sodium 135 (135-145) mmol/L Potassium 3.7 (3.3-5.1) mmol/L Chloride 103 (96-108) mmol/L Carbon Dioxide 26 (22-29) mmol/L Anion Gap 10 L (12-20) BUN 6 L (9-16) mg/dL Creatinine 0.72 (0.5-1.4) mg/dL Estim Creat Clear Calc 95.1 Estimated GFR > 60 Random Glucose 307 H (60-115) mg/dL Calcium 8.6 (8.4-10.2) mg/dL Total Bilirubin 0.6 (0.0-1.0) mg/dL AST 71 H (5-31) U/L ALT 61 H (0-31) U/L Alkaline Phosphatase 91 (39-117) U/L Total Protein 7.4 (6.5-8.0) g/dL Albumin 3.9 (3.5-5.0) g/dL Discharge Plan Discharge Clinical Impression: Leg pain, right Patient Disposition: Home, Self-Care Instructions: Leg Pain (ED) Additional Instructions: All of your labs were normal, you do not have a clot in your leg. Follow up with your primary care provider as needed. Prescriptions: No Action cyclobenzaprine 10 mg tablet 1 tab PO BID PRN (Reason: muscle spasm) insulin lispro 100 unit/mL insulin pen See Protocol subcut TIDAC Protocol: Insulin Correction Scale Less than or equal to 110 ---- Give (units): 0 111 to 150 Give (units): 0 151 to 200 Give (units): 2 201 to 250 Give (units): 4 251 to 300 Give (units): 6 301 to 350 Give (units): 8 Greater than 350 Give (units): 10 Call MD if Blood Glucose > : 350 hydroxyzine HCl 25 mg tablet 25 mg PO BID PRN (Reason: Anxiety) albuterol sulfate [Ventolin HFA] 90 mcg/actuation HFA aerosol inhaler 2 puff INHALATION Q6H PRN (Reason: wheezing) mirtazapine 7.5 mg tablet 7.5 mg PO BEDTIME PRN (Reason: Insomnia) pregabalin 50 mg capsule 50 mg PO TID atorvastatin 40 mg Tablet 40 mg PO BEDTIME Qty: 90 0RF aspirin 81 mg Tablet,Chewable 81 mg PO DAILY Qty: 90 0RF doxepin 25 mg capsule 25 mg PO BEDTIME escitalopram oxalate 5 mg/5 mL solution 20 mg PO QAM duloxetine 60 mg capsule,delayed release(DR/EC) 60 mg PO DAILY Trulicity 3 mg/0.5 mL pen injector 3 mg subcut TU insulin glargine 100 unit/mL (3 mL) insulin pen 10 unit SUBCUT BID melatonin 10 mg capsule 10 mg PO BEDTIME levetiracetam 1,000 mg tablet 1,500 mg PO BID@0900,1700 Qty: 120 0RF morphine 15 mg tablet 15 mg PO Q6H PRN (Reason: pain) Qty: 10 0RF Rx Instructions: partial fill okay; Partial Fill upon patient request. ondansetron HCl 4 mg tablet 4 mg PO Q8H PRN (Reason: nausea and vomiting) Qty: 14 0RF amoxicillin-pot clavulanate 875-125 mg tablet 1 tab PO Q12H 5 Days Qty: 10 0RF azithromycin 500 mg tablet See Rx Instructions .ROUTE .COMPLEX Qty: 6 0RF Rx Instructions: For 250 mg dose pack: take 500 mg today (day 1), then 250 mg for 4 days (days 2-5) omeprazole 20 mg capsule,delayed release(DR/EC) 20 mg PO DAILY@0630 (DME) blood-glucose meter [FreeStyle [place] Lite] Kit See Rx Instructions Not Applicable DAILY Qty: 1 Rx Instructions: As directed thiamine HCl (vitamin B1) 100 mg tablet 100 mg PO DAILY (DME) FreeStyle Lite Strips Strip See Rx Instructions Not Applicable TID Qty: 10 Rx Instructions: As directed duloxetine 30 mg capsule,delayed release(DR/EC) 30 mg PO DAILY magnesium oxide 400 mg (241.3 mg magnesium) tablet 400 mg PO BID folic acid 1 mg tablet 1 mg PO DAILY clonidine HCl 0.2 mg tablet 0.2 mg PO BID lisinopril 40 mg tablet 40 mg PO DAILY metformin 1,000 mg tablet 1,000 mg PO BIDWM (DME) pen needle, diabetic [Sure Comfort Pen Needle] 31 gauge x 3/16 needle See Rx Instructions .ROUTE BID Qty: 50 Rx Instructions: As directed Print Language: Slovenian
[2024-07-21 12:35] VITALS: BP 127/91; PULSE 75; RESP 16; TEMP 36.1; O2SAT 99; BMI 39.9
[2024-07-21 12:46] LABS: MANUAL DIFF FLAG NO
[2024-07-21 12:47] LABS: Basophils Absolute Auto 0.1 X10*3/uL (0.0-0.2); Basophils Percent Auto 0.9 % (0-2); Eosinophils Absolute Auto 0.3 X10*3/uL (0.0-0.4); Eosinophils Percent Auto 2.4 % (0-4); Hematocrit 42.6 % (37.0-47.0); Hemoglobin 14.6 g/dl (12.0-16.0); Imm Gran Abs Auto 0.04 X10*3/uL (0.00-0.03); Imm Gran Pct Auto 0.4 % (0.0-0.4); Mean Corpuscular HGB Conc 34.3 g/dl (31.0-35.0); Mean Corpuscular Hemoglobin 26.6 pg (27.0-33.0); Mean Corpuscular Volume 77.7 fL (80.0-98.0); Mean Platelet Volume 10.3 fL (9.4-12.3); Monocytes Absolute Auto 0.8 X10*3/uL (0.1-1.2); Monocytes Percent Auto 7.4 % (2-11); Neutrophils Absolute Auto 6.1 x10*3/uL (2.0-8.3); Neutrophils Percent Auto 53.9 % (45-73); Platelet Count 298 X10*3/uL (160-400); Red Blood Count 5.48 X10*6/uL (4.20-5.50); Red Cell Distribution Width 14.3 % (11.0-16.0); White Blood Count 11.3 X10*3/uL (4.8-10.8)
[2024-07-21 12:53] LABS: INTERNATIONAL NORM RATIO 1.1 (0.9-1.1); Prothrombin Time 12.6 SEC (10.9-12.4)
[2024-07-21 13:03] LABS: Alanine Aminotransferase 61 U/L (0-31); Albumin Level 3.9 g/dL (3.5-5.0); Alkaline Phosphatase 91 U/L (39-117); Anion Gap 10 (12-20); Aspartate Amino Transferase 71 U/L (5-31); Bilirubin Total 0.6 mg/dL (0.0-1.0); Blood Urea Nitrogen 6 mg/dL (9-16); Calcium 8.6 mg/dL (8.4-10.2); Carbon Dioxide 26 mmol/L (22-29); Chloride 103 mmol/L (96-108); Creatinine Clr Calc Pharmacy 95.1; Estimated Glomerular Filt Rate > 60; Glucose Random 307 mg/dL (60-115); Potassium 3.7 mmol/L (3.3-5.1); Sodium 135 mmol/L (135-145); Total Protein 7.4 g/dL (6.5-8.0)
--- OUTSIDE RECORDS SUMMARY | 2024-07-21 19:22 | XMS_ITS | Clinical Summary ---
Author Organization Unknown Care Team Providers Care Resolution Manager Name Role Phone KIRILL STEWART, MARICRUZ Unavailable Unavailable NAJMA IVERSON, BIRTH ATTENDANT, ELISABET Zuniga able Unavailable WHIT IVERSON, SUE Unavailable Unavailable Payers Payer Name Policy Type Policy Number Effective Date Expira tion Date MEDICAID [facility] [id number] Problems Condition Name Condition Details Condition Category [...] 0 00:00: 00 10-29 23:59 :00 No [id number] Per instruc tions DIRECTED Per instructio ns DIRECTED (route: topical) Med Classific ation: Antisepti cs and Disinfect ants Flovent HFA 110 mcg/actuati on aerosol inhaler 2020-07 0 00:00: 00 Yes [id number] Per instruc tions TWICE DAILY Per instructio ns TWICE DAILY (route: inhalation ) Med Classific ation: Respirato ry Therapy Agents nystatin 100,000 unit/mL oral suspension 2020-07 013 00:00: 00 05-06 23:59 :00 No [id number] Per instruc tions FOUR TIMES DAILY Per instructio ns FOUR TIMES DAILY (route: oral) Med Classific ation: Mouth-Thr oat-Denta l - Preparati ons duloxetine 30 mg capsule,del ayed release 2020-07 00:00: 00 05-06 23:59 :00 No [id number] Per instruc tions AT BEDTIME Per instructio ns AT BEDTIME (route: oral) Med Classific ation: Central Nervous System Agents doxazosin 1 mg tablet 2020-07 0 00:00: 00 08-26 23:59 :00 No [id number] 1 mg AT BEDTIME 1 mg AT BEDTIME (route: oral) Med Classific ation: Cardiovas cular Therapy Agents melatonin 5 mg tablet 2020-07 00:00: 00 Yes [id number] 5 mg AT BEDTIME 5 mg AT BEDTIME (route: oral) Med Classific ation: Central Nervous System Agents Certavite-A ntioxidant 18 mg-400 mcg tablet 2020-07 00:00: 00 05-06 23:59 :00 No [id number] Per instruc tions EVERY Per instructio ns EVERY (route: oral) Med Classific ation: Electroly te Balance-N utritiona l Products thiamine HCl (vitamin B1) 100 mg tablet 2020-07 00:00: 00 Yes [id number] 100 tablet EVERY 100 tablet EVERY (route: oral) Med Classific ation: Electroly te Balance-N utritiona l Products magnesium oxide 400 mg (241.3 mg magnesium) tablet 2020-07 00:00: 00 Yes [id number] 400 mg TWICE DAILY 400 mg TWICE DAILY (route: oral) Med Classific ation: Electroly te Balance-N utritiona l Products folic acid 1 mg tablet 2020-07 0 00:00: 00 Yes [id number] 1 mg EVERY 1 mg EVER Y (route: oral) Med Classific ation: Electroly te Balance-N utritiona l Products omeprazole 20 mg capsule,del ayed release 2020-07 0 00:00: 00 08-26 23:59 :00 No [id number] 20 mg EVERY 20 mg EVERY (route: oral) Med Classific ation: Gastroint estinal Therapy Agents clonazepam 0.5 mg tablet 2020-07 0 00:00: 00 08-26 23:59 :00 No [id number] 0.5 mg EVERY DAY AT 0.5 mg EVERY DAY AT (route: oral) Med Classific ation: Central Nervous System Agents clonidine HCl 0.2 mg tablet 2020-07 007 00:00: 00 Yes [id number] 0.2 mg TWICE DAILY 0.2 mg TWICE DAILY (route: oral) Med Classific ation: Cardiovas cular Therapy Agents cyclobenzap rine 10 mg tablet 2020-07 0 00:00: 00 05-06 23:59 :00 No [id number] Per instruc tions AT AT AT BEDTIME Per instructio ns AT AT AT BEDTIME (route: oral) Med Classific ation: Locomotor System Humalog KwikPen (U-100) Insulin 100 unit/mL subcutaneou s 2020-07 00:00: 00 05-06 23:59 :00 No [id number] Per instruc tions SUBCUTANEO USLY THREE TIMES DAILY BEFORE MEALS DIRECTED Per instructio ns SUBCUTANEO USLY THREE TIMES DAILY BEFORE MEALS DIRECTED (route: subcutaneo us) Med Classific ation: Endocrine Ambien 10 mg tablet 2020-07 00:00: 00 06-29 23:59 :00 No [id number] 10 mg BEDTIME 10 mg BEDTIME (route: oral) Med Classific ation: Central Nervous System Agents cyclobenzap rine 10 mg tablet 2020-07 017 00:00: 00 08-26 23:59 :00 No [id number] 10 mg BEDTIME 10 mg BEDTIME (route: oral) Med Classific ation: Locomotor System cyclobenzap rine 10 mg tablet 2020-0716 00:00: 00 08-26 23:59 :00 No [id number] 10 mg 2 TIMES DAILY 10 mg 2 TIMES DAILY (route: oral) Med Classific ation: Locomotor System Cymbalta 60 mg capsule,del ayed release 2020-07 016 00:00: 00 08-26 23:59 :00 No [id number] 60 capsule BEDTIME 60 capsule BEDTIME (route: oral) Med Classific ation: Central Nervous System Agents duloxetine 30 mg capsule,del ayed release 2020-07 0-16 00:00: 00 08-26 23:59 :00 No [id number] 30 mg 2 TIMES DAILY 30 mg 2 TIMES DAILY (route: oral) Med Classific ation: Central Nervous System Agents gabapentin 600 mg tablet 2020-0716 00:00: 00 05-08 23:59 :00 No [id number] 600 mg 3 TIMES DAILY 600 mg 3 TIMES DAILY (route: oral) Med Classific ation: Central Nervous System Agents Humalog KwikPen (U-100) Insulin 100 unit/mL subcutaneou s 2020-07 00:00: 00 06-02 23:59 :00 No [id number] 0 In unit DIRECTED 0 In unit DIRECTED (route: [facility]) Med Classific ation: Endocrine Lantus U-100 Insulin 100 unit/mL subcutaneou s solution 2020-07 00:00: 00 08-26 23:59 :00 No [id number] 8 unit EVERY AM 8 unit EVERY AM (route: subcutaneo us) Med Classific ation: Endocrine Lantus U-100 Insulin 100 unit/mL subcutaneou s solution 2020-0716 00:00: 00 Yes [id number] 35 unit BEDTIME 35 unit BEDTIME (route: subcutaneo us) Med Classific ation: Endocrine levetiracet am 1,000 mg tablet 2020-0716 00:00: 00 Yes [id number] 1000 mg 2 TIMES DAILY 1000 mg 2 TIMES DAILY (route: oral) Med Classific ation: Central Nervous System Agents lisinopril 40 mg tablet 2020-07-16 00:00: 00 Yes [id number] 40 mg DAILY 40 mg DAILY (route: oral) Med Classific ation: Cardiovas cular Therapy Agents metformin 1,000 mg tablet 2020-07 0-16 00:00: 00 Yes [id number] 1000 mg 2 TIMES DAILY 1000 mg 2 TIMES DAILY (route: oral) Med Classific ation: Endocrine multivitami n tablet 2020-07-16 00:00: 00 Yes [id number] 1 tablet DAILY 1 tablet DAILY (route: oral) Med Classific ation: Electroly te Balance-N utritiona l Products ondansetron HCl 8 mg tablet 2020-0716 00:00: 00 08-26 23:59 :00 No [id number] 8 mg NEEDED 8 mg NEEDED (route: oral) Med Classific ation: Gastroint estinal Therapy Agents ProAir HFA 90 mcg/actuati on aerosol inhaler 2020-07 00:00: 00 Yes [id number] 2 puff NEEDED 2 puff NEEDED (route: inhalation ) Med Classific ation: Respirato ry Therapy Agents ropinirole 0.5 mg tablet 2020-07 00:00: 00 Yes [id number] 0.5 mg BEDTIME 0.5 mg BEDTIME (route: oral) Med Classific ation: Central Nervous System Agents simethicone 80 mg chewable tablet 2020-07 00:00: 00 08-26 23:59 :00 No [id number] 80 mg NEEDED 80 mg NEEDED (route: oral) Med Classific ation: Gastroint estinal Therapy Agents Trulicity 1.5 mg/0.5 mL subcutaneou s pen injector 2020-07 00:00: 00 Yes [id number] 1.5 mg WEEKLY 1.5 mg WEEKLY (route: subcutaneo ) Med Classific ation: Endocrine Tums 200 mg calcium (500 mg) chewable tablet 2020-07 00:00: 00 08-26 23:59 :00 No [id number] 200 mg NEEDED 200 mg NEEDED (route: oral) Med Classific ation: Gastroint estinal Therapy Agents gabapentin 600 mg tablet 2020-0718 00:00: 00 08-26 23:59 :00 No [id number] 600 mg 3 TIMES DAILY 600 mg 3 TIMES DAILY (route: oral) Med Classific ation: Central Nervous System Agents Humalog KwikPen (U-100) Insulin 100 unit/mL subcutaneou s 2020-07 00:00: 00 Yes [id number] Per instruc tions 3 TIMES DAILY Per instructio ns 3 TIMES DAILY (route: subcutaneo us) Med Classific ation: Endocrine cyclobenzap rine 10 mg tablet 08-29 00:00: 00 Yes [id number] 10 mg 3 TIMES DAILY 10 mg [...] EVERY AM 10 unit EVERY AM (route: [facility]) Med Classific ation: Endocrine omeprazole 20 [...] CARE WILL BE ESTABLISHED THAT MEETS PATIENT'S JAIL NEEDS AND INCLUDES PATIENT GOAL FOR HOME [...] End Date/Time Encounter Type Admission Type Attending [facility] Care Department Encounter ID Discharge Date Discharge Status Discharge Condition Discharge Reason Percent Goals Met 2021-05-06 00:00:00 2022-10-23 00:00:00 Outpatient RECERTIFIC ATION SUE SHERMAN [facility] [id number] 2320-04-04 00:00:00 DISCHARGE TO HOME OR SELF CARE INDEPENDEN T WITH USE OF ASSISTIVE DEVICE NON COMPLIANT WITH PLAN OF TREATMENT 33.33
[2024-07-21 19:46] VITALS: BP 114/63; PULSE 76; RESP 16; TEMP 36.4; O2SAT 98
--- NOTE | 2024-07-21 20:28 | PC.NURSE ---
pt denies any pain at this time, provider into see her, pt awaiting Ems to return home.
[2024-07-21 20:56] VITALS: BP 114/63; PULSE 76; RESP 16; TEMP 36.4; O2SAT 98
--- NOTE | 2024-07-21 20:56 | PC.NURSE ---
report given to EMS, pt being transferred back home.
== END 2024-07-21 20:57 | disposition home or self-care (01) ==
PROVIDERS: Registered Nurse Emergency; Emergency Provider Emergency Medicine; PCP Nurse Practitioner Primary Care
DX: M79.604 Pain in right leg (principal); R60.0 Localized edema; Z79.899 Other long term (current) drug therapy; Z87.891 Personal history of nicotine dependence
CPT/HCPCS: 36415; 80053; 85025; 85610; 93971; 99284

== ENCOUNTER → 2024-07-21 12:37 | Outpatient (BNV) | payer MEDICAID, SELFPAY | PROVIDERS: Visit Provider Radiology Diagnostic Radiology | DX: M79.604 Pain in right leg (principal) | CPT/HCPCS: 93971 ==

== ENCOUNTER 2024-08-18 22:17 | Emergency (ER) | payer MEDICAID, SELFPAY ==
--- NOTE | ~2024-08-18 | XR_ITS ---
CLINICAL HISTORY: cough covid positive 1 view chest x-ray Comparison: CR/SR - XR CHEST 1V - 05/25/22 19:09 EDT Findings: No consolidation or effusion. Normal size heart. No acute fracture. IMPRESSION: No consolidation. This document has been electronically signed by: Jose Angel Turpin MD on 08/18/2024 23:25:06
[2024-08-18 22:27] VITALS: BP 135/43; BP 146/94; PULSE 76; PULSE 83; RESP 18; TEMP 36.6; O2SAT 97; O2SAT 99; BMI 39.4
[2024-08-18 22:35] VITALS: BP 135/43; PULSE 76; RESP 18; TEMP 36.6; O2SAT 99
[2024-08-18 22:36] VITALS: O2SAT 100
[2024-08-18 23:21] LABS: Influenza A PCR NEGATIVE (Negative); Influenza B PCR NEGATIVE (Negative); Resp Syncy Virus RNA Qual PCR NEGATIVE (Negative); SARS COV2 PCR INHOUSE POSITIVE (Negative)
--- OUTSIDE RECORDS SUMMARY | 2024-08-18 23:32 | XMS_ITS | Encounter Summary ---
Author Organization [employer] Address [address] [place] [address] [address] [place] [address] Care Team Providers Care Rn Medical Inpatient Services Name Role Phone Cathy Gerber Primary Care Provider Reason for Visit * Reason Comments Med Refill Encounter Details Date Type Department Care Team ([facility] st Contact Info) Description 08/07/2023 Refill [facility] [address], [place] [phone] Cathy Gerber ANP [address] [place] [address] Social History Tobacco Use Types Packs/Day Years Used Date Smoking Tobacco: Former Cigarettes Passive Smoke Exposure: Never Smokeless Tobacco: Never Alcohol Use Standard Drinks/Week Comments Never 0 (1 standard drink = 0.6 oz pur e alcohol) Comments Unknown Sex and Gender Information Value Date Recorded Sex Assigned at Female 05/21/2022 10:16 AM EDT Legal Sex Female 10:16 AM EDT Gender Identity Female 05/21/2022 10:16 AM EDT Sexual Orientation Straight 05/21/2022 10 :16 AM EDT documented as of this encounter Plan of Treatment Not on file documented as of this encounter Visit Diagnoses Not on filedocumented in this encounter Care Teams Rn Medical Inpatient Services Relationship Specialty Start Date End Date Cathy Gerber ANP [address] [place] [address] PCP - General Family Medicine 06/28/22 documented as of this encounter
--- OUTSIDE RECORDS SUMMARY | 2024-08-18 23:32 | XMS_ITS | Encounter Summary ---
Author Organization [facility] Address [address] [place] [address] [address] [place] [address] Care Team Providers Care Pediatrician Managing Partner Name Role Phone Cathy Gerber Primary Care Provider [phone] Encounter Details Date Type Department Care Team (Late st Contact Info) Description 09/12/2022 Abstract [facility] [address] [place], [place] [phone] Cathy Gerber ANP [address] [place], [place] [phone] Social History Tobacco Use Types Packs/Day Years Used Date Smoking Tobacco: Never Passive Smoke Exposure: Never Smokeless Tobacco: Never [...] on filedocumented in this encounter Care Teams Pediatrician Managing Partner Relationship Specialty Start Date End Date Cathy Gerber ANP [address] [place], [place] [phone] PCP - General Family Medicine 06/28/22 documented as of this encounter
--- OUTSIDE RECORDS SUMMARY | 2024-08-18 23:32 | XMS_ITS | Encounter Summary ---
Author Organization [employer] Address [address] [facility] [address]t [place] [address] Care Team Providers Care Pot Reliner Name Role Phone Cathy Gerber Primary Care Provider [phone] Reason for Visit * Reason Onset Date Comments Triage 11/08/2022 Encounter Details Date Type Department Care Team ([facility] st Contact Info) Description 11/08/2022 Telephone [facility] MEDICINE [address] [place] [address] Cathy Gerber ANP [address] [place] [address] Triage Social History Tobacco Use Types Packs/Day Years Used Date Smoking Tobacco: Never Passive Smoke Exposure: Never Smokeless Tobacco: Never Alcohol Use Standard Drinks/Week Comments Never 0 (1 standard drink = 0.6 oz pur e alcohol) Alcohol Answer Date Recorded Frequency of Alcohol Consumption Not on file 09/12/2023 Average Number of Drinks Not on file 024 Frequency of Binge Drinking Not on file 08/23 Score 0 09/12/2023 Depression Answer Date Recorded Patient Health Questionnaire-9 Score 0 09/12/2023 Patient Health Questionnaire-9 Score 0 09/12/2023 Last PHQ-9: Questionnaire Data Not on file 0 09/12/2023 Housing Stability Answer Date Recorded What is your housing situation today? I have tg hernandez 09/12/[address] you li ve. Do you have problems with any of the following? None of the above 09/12/2023 Food Insecurity Answer Date Recorded Within the past 12 months, y ou worried that your food would run out before you got money to buy more: Sometimes True 2023 Within the past 12 months,th e food you bought just didn't last and you didn't have enough money to get more: Sometimes True 01/07/2024 Transportation Answer Date Recorded In the past 12 months, has l ack of transportation kept you from medical appts, meetings, work or from getting things needed for daily living? No 09/12/2023 Utilities Answer Date Recorded In the past 12 months, has t he electric, gas, oil or water company threatened to shut off services in your home? No 09/12/2023 Depression Answer Date Recorded Patient Health Questionnaire-2 Score 0 09/12/2023 Internet Access Answer Date Recorded Internet Access Q1 No 03/23/2024 Internet Access Q2 I do not want or need it 08/2023 Comments Unknown Sex and Gender Information Value Date Recorded Sex Assigned at Female 05/21/2022 10:16 AM EDT Legal Sex Female 10:16 AM EDT Gender Identity Female 05/21/2022 10:16 AM EDT Sexual Orientation Straight 05/21/2022 10 :16 AM EDT COVID-19 Exposure Response Date Recorded In the last 10 days, have yo u been in contact with someone who was confirmed or suspected to have Coronavirus/COVID-19? No / Unsure 12/19/2022 3:45 PM EDT documented as of this encounter Miscellaneous Notes * Telephone Encounter - Rayne Dahl RN - 11/08/2022 3:38 PM EDT Triage call Pt reports just getting [facility] of the [facility] and getting into an apartment. Pt reports lost glasses somewhere along the way. Pt reports DM hx and vision is very blurry. Pt is requesting a referral to vision center at [facility]. apt with Dr. Kevin Rodriguez 11/19 @ 330pm . Pt agrees with disposition and home care reviewed Protocol Used: Vision Loss or Change (Adult) Protocol-Based Disposition: See in Office or Video Visit within 2 Weeks Video visit not offered Positive Triage Questions: * Blurred vision or visual changes and gradual onset (e.g., weeks, months) * Diabetes mellitus and no eye exam in > 12 months * All higher-acuity triage questions were negative Care Advice Discussed: * Reassurance and Education - Eye Strain * Rest the Eyes * Eye Exam * Artificial Tears for Dry Eyes * Reasons To Call Back - Blurred vision occurs at other times - You become worse * Telephone Encounter - Maggie Falcon - 11/08/2022 3:11 PM EDT Symptom: Vision Loss or Change Outcome: Schedule an urgent appointment (within 1 hour) or talk to a nurse or provider soon Reason: Getting worse, pt is requesting a referral for [facility] EYE CARE . The caller accepted this outcome Please contact at [phone] documented in this encounter Plan of Treatment Not on file documented as of this encounter Visit Diagnoses Diagnosis Dietary counseling Dietary surveillance and counseling Exercise counseling Seizure disorder (CMS/HCC) Unspecified epilepsy without mention of intractable epilepsy documented in this encounter Care Teams Pot Reliner Relationship Specialty Start Date End Date Cathy Gerber ANP [address] [place] [id number] PCP - General Family Medicine 06/28/22 documented as of this encounter
--- OUTSIDE RECORDS SUMMARY | 2024-08-18 23:32 | XMS_ITS | Encounter Summary ---
Author Organization [employer] Address [address] [place] [address] [address] [place] [address] Care Team Providers Care Procurement Inspector Name Role Phone Cathy Gerber Primary Care Provider [phone] Reason for Visit * Reason Comments Med Change Request Encounter Details Date Type Department Care Team ([facility] st Contact Info) Description 08/20/2023 Refill [facility] MEDICINE [address] [place], [place] [phone] Cathy Gerber ANP [address] [place], [place] [phone] Seizure disorder (CMS/HCC) Social History Tobacco Use Types Packs/Day Years [...] as of this encounter Visit Diagnoses Diagnosis Seizure disorder (CMS/HCC) Unspecified epilepsy without mention of intractable epilepsy documented in this encounter Care Teams Procurement Inspector Relationship Specialty Start Date End Date Cathy Gerber ANP [address] [place] [phone] PCP - General Family Medicine 06/28/22 documented as of this encounter
--- OUTSIDE RECORDS SUMMARY | 2024-08-18 23:32 | XMS_ITS | Encounter Summary ---
Author Organization [employer] Address [address] [place] [address] 7t [place] [address] Care Team Providers Care Hop Separator Name Role Phone Cathy Gerber Primary Care Provider [phone] Encounter Details Date Type Department Care Team (Late st Contact Info) Description 07/02/2022 Orders Only [facility] MEDICINE [address] [place] [address] Jennifer Steel, RN [address] [place] [address] Social History Tobacco Use Types Packs/Day Years Used Date Smoking Tobacco: Never Assessed Comments Unknown Sex and Gender Information Value [...] on filedocumented in this encounter Care Teams Hop Separator Relationship Specialty Start Date End Date Cathy Gerber ANP [address] [place] [address] PCP - General Family Medicine 06/28/22 documented as of this encounter
--- OUTSIDE RECORDS SUMMARY | 2024-08-18 23:32 | XMS_ITS | Encounter Summary ---
Author Organization [employer] Address [address] [place] [address] 7t [place] [address] Care Team Providers Care Video Editor Name Role Phone Cathy Gerber Primary Care Provider [phone] Reason for Visit * Reason Onset Date Comments Med Refill 07/05/2023 Encounter Details Date Type Department Care Team (Late st Contact Info) Description 07/05/2023 Refill [facility] MEDICINE [address] [place] [address] Cathy Gerber ANP [address] [place] [address] Gastroesophageal reflux disease, unspecified whether esophagitis present Social History Tobacco Use Types Packs/Day Years [...] AM EDT documented as of this encounter Miscellaneous Notes * Telephone Encounter - Jennifer Jiménez LPN - 07/05/2023 1:53 PM EST Next appointment 07/25/23. * Telephone Encounter - Conner Mccauley - 07/05/2023 1:48 PM EST Tc from health care attorney requesting medication refill for glucose blood (FREESTYLE LITE) test strip,Lancets 33G misc and omeprazole (PriLOSEC) [address] capsule documented in this encounter Plan of Treatment Not on file documented as of this encounter Visit Diagnoses Diagnosis Gastroesophageal reflux disease, unspecified whether esophagitis present documented in this encounter Care Teams Video Editor Relationship Specialty Start Date End Date Cathy Gerber ANP [address] [place] [id number] PCP - General Family Medicine 06/28/22 documented as of this encounter
--- OUTSIDE RECORDS SUMMARY | 2024-08-18 23:32 | XMS_ITS | Encounter Summary ---
Author Organization [employer] Address [address] [facility] 7t [place] [address] Care Team Providers Care Shoemaking Finisher Name Role Phone Cathy Gerber Primary Care Provider [phone] Reason for Visit * Reason Onset Date Comments Appointment Request 04/24/2024 Encounter Details Date Type Department Care Team ([facility] Contact Info) Description 04/24/2024 Telephone [facility] MEDICINE [address] [place], [place] [phone] Cathy Gerber ANP [address] [place] [address] Appointment Request Social History Tobacco Use Types Packs/Day Years [...] not want or need it 08/2023 Comments No Sex and Gender Information Value Date Recorded Sex Assigned at Female 05/21/2022 10:16 AM EDT Legal Sex Female 10:16 AM EDT Gender Identity Female 05/21/2022 10:16 AM EDT Sexual Orientation Straight 05/21/2022 10 :16 AM EDT documented as of this encounter Miscellaneous Notes * Telephone Encounter - Conner Mccauley - 04/24/2024 1:57 PM EDT Tc from patient calling to reschedule appt from 04/24 race and sports book writer did attempt to reschedule however thereis no availability documented in this encounter Plan of Treatment Not on file documented as of this encounter Visit Diagnoses Not on filedocumented in this encounter Additional Health Concerns Assessment Noted Time PHQ-9 Depression Total Score: 0 09/12/19 24 10:17 AM EST documented as of this encounter Care Teams Shoemaking Finisher Relationship Specialty Start Date End Date Cathy Gerber ANP [address] [place] [address] PCP - General Family Medicine 06/28/22 documented as of this encounter
--- OUTSIDE RECORDS SUMMARY | 2024-08-18 23:32 | XMS_ITS | Encounter Summary ---
Author Organization [employer] Address [address] [place] [address] [address] [place] [address] Care Team Providers Care Tile Grinder Name Role Phone Jennifer Mckenzie DO Primary Care Provider [phone] Cathy Gerber Primary Care Provider [phone] Encounter Details Date Type Department Care Team (Latest Contact Info) Description 05/18/2021 Abstract [facility] CONVERSIONS Dental, Provider, DDS Social History Tobacco Use Types Packs/Day Years [...] on filedocumented in this encounter Care Teams Tile Grinder Relationship Specialty Start Date End Date Jennifer Mckenzie DO [address] [place] [address] PCP - General Family Medicine 04/06/22 06/27/22 Cathy Gerber ANP [address] [place], [place] [phone] PCP - General Family Medicine 06/28/22 documented as of this encounter
--- OUTSIDE RECORDS SUMMARY | 2024-08-18 23:32 | XMS_ITS | Encounter Summary ---
Author Organization [facility] [facility] Address [address] [place] [address] 7t [place] [address] Care Team Providers Care Assistant Track Coach Name Role Phone Cathy Gerber Primary Care Provider Encounter Details Date Type Department Care Team (Late st Contact Info) Description 11/06/2022 Orders Only [facility] MEDICINE [address] [place], [place] [phone] Cathy Gerber ANP [address] [place], [place] [phone] Social History Tobacco Use Types Packs/Day Years [...] suspected to have Coronavirus/COVID-19? No / Unsure 10/11/2022 9:35 AM EDT documented as of this encounter Plan of Treatment Not on file documented as of this encounter Visit Diagnoses Not on filedocumented in this encounter Care Teams Assistant Track Coach Relationship Specialty Start Date End Date Cathy Gerber ANP [address] [place], [place] [phone] PCP - General Family Medicine 06/28/22 documented as of this encounter
--- OUTSIDE RECORDS SUMMARY | 2024-08-18 23:32 | XMS_ITS | Encounter Summary ---
Author Organization [employer] Address [address] [facility] [address]t [place] [address] Care Team Providers Care Staffing Director Name Role Phone Cathy Gerber Primary Care Provider [phone] Reason for Visit * Reason Comments Med Refill Encounter Details Date Type Department Care Team ([facility] Contact Info) Description 03/09/2024 Refill [facility] MEDICINE [address] [place], [place] [phone] Lilian Meyers, ERIKA [address] [place] [address] Social History Tobacco Use Types Packs/Day Years [...] Recorded Patient Health Questionnaire-2 Score 0 09/12/2023 Comments No Sex and Gender Information Value [...] documented as of this encounter Care Teams Staffing Director Relationship Specialty Start Date End Date Cathy Gerber ANP [address] [place] [address] PCP - General Family Medicine 06/28/22 documented as of this encounter"
--- OUTSIDE RECORDS SUMMARY | 2024-08-18 23:32 | XMS_ITS | Clinical Summary ---
Author Organization [employer] Address [address] [facility] [facility] [address] [place] [address] Care Team Providers Care Educational Speech Language Clinician Name Role Phone Kashmir Gaming Primary Care Provider [phone] Allergies Active Allergy Reactions Criticality Noted Date Comments Gramineae Pollens 07/27/2022 Tomato Rash Low 07/31/2023 Medications Blood Glucose Monitoring Suppl (Dacos SoftwareStyle Lite) w/Device kit 1 kit 3 times daily. 1 kit 023 Active albuterol 108 (90 Base) MCG/ACT inhalerIndication s:COPD exacerbation ([facility]) Inhale 2 puffs every 6 (six) hours if needed for wheezing. 18 g 023 Active hydrOXYzine HCl (Atarax) 25 MG tablet Take 25 mg by mouth if needed in the morning and at bedtime. 023 Active metFORMIN (Glucophage) 1000 MG tabletIndications :Type 2 diabetes mellitus with other specified complication, with long-term current use of insulin (CMS/HCC) TAKE 1 TABLET BY MOUTH TWICE DAILY IN THE MORNING AND IN THE EVENING WITH MEALS 180 tablet 3 024 Active dulaglutide (Trulicity) 3 MG/0.5ML solution pen-injectorIndic ations:Type 2 diabetes mellitus with hyperlipidemia (CMS/HCC) (CMS/HCC) Inject 3 mg under the skin 1 (one) time per week. 4 each 024 Active Continuous Blood Gluc Product Director (FreeStyle Pedro 2 Zapata) deviceIndications :Type 2 diabetes mellitus with hyperlipidemia (CMS/HCC) (CMS/HCC) Scan sensor every 8 hours 1 each 024 Active Continuous Blood Gluc Sensor (FreeStyle Pedro 2 Sensor) miscIndications:T ype 2 diabetes mellitus with hyperlipidemia (CMS/HCC) ([facility]) Apply 1 sensor every 14 days 2 each 11 024 Active glucose blood (FreeStyle Precision Edward Test) test stripIndications: Type 2 diabetes mellitus with hyperlipidemia (CMS/HCC) ([facility]) Use to test blood sugar 5 times daily 100 each 12 024 2024 Active DULoxetine (Cymbalta) [address] capsuleIndication s:Chronic pain syndrome TAKE 1 CAPSULE BY MOUTH EVERY DAY 30 capsule 2 024 Active melatonin 5 MG tablet Take 2 tablets (10 mg) by mouth if needed at bedtime (sleep). 60 tablet 024 Active mirtazapine (Remeron) 7.5 MG tabletIndications :Insomnia, unspecified type TAKE 1 TABLET BY MOUTH EVERYDAY AT BEDTIME 30 tablet 2 024 Active Alcohol Swabs (B-D SINGLE USE SWABS REGULAR) padsIndications:T ype 2 diabetes mellitus with hyperlipidemia ([facility]/HCC) ([facility]) USE DIRECTED 100 each 024 Active glucose blood (FREESTYLE LITE) test stripIndications: Type 2 diabetes mellitus with hyperlipidemia ([facility]/HCC) ([facility]) USE TO TEST BLOOD SUGAR THREE TIMES A DAY 100 each 11 024 Active lisinopril 40 MG tabletIndications :Primary hypertension TAKE 1 TABLET BY MOUTH EVERY DAY IN THE MORNING 90 tablet 1 024 Active cloNIDine (Catapres) 0.2 MG tabletIndications :Hypertension associated with diabetes ([facility]/HCC) ([facility]) TAKE 1 TABLET BY MOUTH TWICE A DAY 180 tablet 1 024 Active DULoxetine (Cymbalta) [address] capsuleIndication s:Chronic pain syndrome TAKE 1 CAPSULE BY MOUTH DAILY WITH 30 MG CAPSULE 90 capsule 024 Active pregabalin (Lyrica) 50 MG capsuleIndication s:Chronic pain syndrome,Restless legs,Neuropathic pain TAKE 1 CAPSULE BY MOUTH THREE TIMES A DAY 90 capsule 1 024 Active Lantus SoloStar 100 UNIT/ML pen INJECT 10 UNITS EVERY MORNING AND 35 UNITS EVERY EVENING 15 mL 5 024 Active insulin lispro (HumaLOG) 100 UNIT/ML injection INJECT 3 TIMES DAILY BEFORE MEALS DIRECTED USE 2 UNITS IF BLOOD SUGAR IS 150-200, 4 UNITS IF 201- 250, 6 UNITS IF 251-300, 8 UNITS IF BETWEEN 301-350, 10 UNITS IF 351-400 AND 12 UNITS IF BLOOD SUGAR IS >400 15 mL 5 024 Active TRUEplus Lancets 33G misc USE TO TEST BLOOD SUGAR THREE TIMES A DAY 100 each 3 024 Active thiamine (Vitamin B-1) 100 MG tabletIndications :Alcohol dependence with unspecified alcohol-induced disorder (CMS/HCC) TAKE 1 TABLET BY MOUTH EVERY DAY IN THE MORNING 90 tablet 1 024 Active Sodium Fluoride 5000 PPM 1.1 % paste APPLY 1 APPLICATION TO TEETH 2 TIMES DAILY. 100 g 024 Active Insulin Pen Needle (pen needle 10/04 ) 31G x 5 mm misc USE WITH LANTUS TWICE DAILY AND WITH HUMALOG THREE TIMES DAILY 100 each 3 024 Active omeprazole (PriLOSEC) [address] capsuleIndication s:Gastroesophagea l reflux disease, unspecified whether esophagitis present TAKE 1 CAPSULE BY MOUTH EVERY DAY BEFORE A MEAL 90 capsule 1 024 Active levETIRAcetam (Keppra) 1000 MG tabletIndications :Seizure disorder (CMS/HCC) TAKE 1 + 1/2 TABLETS BY MOUTH TWICE A DAY 270 tablet 024 Active magnesium oxide (Mag-Ox) 400 (240 Mg) MG tablet TAKE 1 TABLET BY MOUTH TWICE A DAY 180 tablet 025 Active atorvastatin (Lipitor) 40 MG tabletIndications :Type 2 diabetes mellitus with hyperlipidemia (CMS/HCC) (CMS/HCC) TAKE 1 TABLET BY MOUTH AT BEDTIME 90 tablet 025 Active Aspirin Low Dose 81 MG chewable tabletIndications :Type 2 diabetes mellitus with hyperlipidemia (CMS/HCC) (CMS/HCC) CHEW 1 TABLET BY MOUTH EVERY DAY 90 tablet 025 Active aspirin (Aspirin Low Dose) 81 MG chewable tabletIndications :Type 2 diabetes mellitus with hyperlipidemia (CMS/HCC) (CMS/HCC) Chew 1 tablet (81 mg) Once per day. 90 tablet 024 2024 Discontinued atorvastatin (Lipitor) 40 MG tabletIndications :Type 2 diabetes mellitus with hyperlipidemia (CMS/HCC) (CMS/HCC) Take 1 tablet (40 mg) by mouth at bedtime. 90 tablet 024 2024 Discontinued magnesium oxide (Mag-Ox) 400 (240 Mg) MG tablet TAKE 1 TABLET BY MOUTH TWICE A DAY 180 tablet 024 2024 Discontinued Active Problems Problem Noted Date Diagnosed Date Transaminitis 11/12/2023 Assessment & Plan (11/12/2023 6:58 PM EDT): 10/2023 AST 87, ALT 48. Denies alcohol use Pt w chronic elevated LFTs ,possible associated w fatty liver and uncontrolled DM? -pt has f up w PCP in 2 months already scheduled apt and can have labs monitored then , if no improvement will need Abd US COPD exacerbation 07/09/2023 Adrenal nodule 05/08/2023 Overview (05/08/2023): -CT abd/pelvis done [facility] ER 01/16/2023 for RLQ abd pain revealed left adrenal nodule measuring 1.2cm, probably benign, although risk is increased if there is a prior history of malignancy. Consider biochemical assays to determine functional status and exclude pheochromocytoma. Also consider follow up adrenal CT protocol or chemical shift MRI in 12 months to assess stability. Alcohol dependence 07/02/2022 Anxiety 07/02/2022 Chronic pain syndrome 07/02/2022 Cocaine abuse 07/02/2022 Gastroesophageal reflux disease 07/02/2022 H/O: attempted suicide 07/02/2022 History of COVID-19 07/02/2022 Mild persistent asthma 07/02/2022 Morbid obesity 07/02/2022 Opioid dependence 07/02/2022 Posttraumatic stress disorder 07/02/2022 Assessment & Plan (11/12/2023 6:58 PM EDT): -has a psychiatrist and thrapist ,refuse BH today ,states to be in better in mood , no SI Restless legs 07/02/2022 Right hemiparesis 07/02/2022 Schizoaffective disorder 07/02/2022 Seizure disorder 07/02/2022 Assessment & Plan (11/12/2023 6:57 PM EDT): 10/[address] shows 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 CTA head/neck somewhat limited but does not appear to have evidence of high-grade stenosis or large vessel occlusion. Seems episode possibly occurred in setting of cocaine use prior event Controlled since hospital discharge -As also rec by neurologist at hospital pt should not drive and avoid activities that could put her life in danger such as sitting in a soaking tub alone or swimming alone -referred tday to neurologist -request RN to f up on previous PCP 's PT referral for her chronic hemiparesis - uses RW for ambulation,states has VNA services -advised pt avoid drugs -states she is not using for long time ,states to only use marijuana and was a one time thing the cocaine use-offered referral to [facility] but refusing for now -continue keppra 1500 mg BID-refilled today Type 2 diabetes mellitus with hyperlipidemia ([facility] S/HCC) 07/02/2022 Assessment & Plan (11/12/2023 6:58 PM EDT): -last apt w PCP in 08/2023 trulicity incrased to 3 mg weekly ,states improved since then her DM controlled but not available that dose at her pharmacy not here -I checked today -while not available 3 mg dose of trulicity -advised pt to increase her lantus from 10 u in am to 15 u and keep 35 in pm ,for now continue trulicity 1.5 mg ( per pharmacy was given that dose for now) ,once gets trulicity 3 to go back to 10 u in am of lantus as regular dosing until see PCP -has f up w PCP in 2 mo for DM f up Allergic rhinitis 07/04/2015 Chronic low back pain 07/04/2015 Hypertension 07/04/2015 Encounters Date Type Department Care Team Description 07/31/2024 Telephone [facility] [address] [place] [address] Jennifer Mckenzie, DO No Show 07/31/2024 Refill [facility] [address] [place], [place] [phone] Kashmir Gaming, ANP Type 2 diabetes mellitus with hyperlipidemia (CMS/HCC) 07/30/2024 Telephone [facility] [address] [place] [address] Kashmir Gaming ANP Nurse Triage 07/30/2024 Telephone [facility] [address] [place] [address] Kashmir Gmaing ANP Nurse Triage 07/26/2024 Refill [facility] [address] [place] [address] Kashmir Gaming ANP 07/10/2024 Refill [facility] [address] [place] [address] Kashmir Gaming ANP Gastroesophageal reflux disease, unspecified whether esophagitis present; Seizure disorder ([facility]/HCC) 07/08/2024 Refill [facility] [address] [place] [address] Sudhakar Bustillos DMD 07/08/2024 Refill [facility] [address] [place] [address] Kashmir Gaming ANP Alcohol dependence with unspecified alcohol-induced disorder ([facility]/HCC) 07/08/2024 Refill [facility] [address] [place] [address] Deya Contreras MD 07/07/2024 Telephone [facility] [address] [place] [phone] Kashmir Gaming ANP ER Follow-up 07/06/2024 Orders Only GENERIC EXTERNAL DATA DEPARTMENT Provider, Generic External Data 06/29/2024 Orders Only [facility] [place] [address] Lilian Meyers CNM Screening examination for venereal disease (Primary Dx) 06/25/2024 Telephone [facility] [address] [place] [address] Kashmir Gaming ANP ER Follow-up 06/24/2024 Telephone [facility] [address] [place] [phone] Tenisha Kraft MA chart prep 05/20/2024 Refill [facility] [address] [place] [address] Kashmir Gaming ANP Chronic pain syndrome; Restless legs; Neuropathic pain from Last 3 Months Immunizations Name Administration Dates Next Due Hep B, Unspecified 08/26/2007 Hep B, adult 09/14/2013,06/17/2013,12/20/2011 Influenza injectable quadriv alent preservative free 04/18/2018 Influenza, IIV3, injectable 04/03/2012, 1,04/26/2009 Influenza, Split (incl. robin fied surface antigen) 06/15/2013 Pfizer Covid-19 Vaccine 12+ 08/24/2020, Pneumococcal Conjugate PCV 20 09/12/2023 Pneumococcal Polysaccharide PPSV23 12/30/2006 Td (adult), 5 Lf tetanus tox oid, preservative free, adsorbed 09/07/2016 Tdap 09/01/2012 Social History Tobacco Use Types Packs/Day Years Used Date Smoking Tobacco: Former Cigarettes Passive Smoke Exposure: Never Smokeless Tobacco: Never Tobacco Cessation:Counseling Given: Not Answered Alcohol Use Standard Drinks/Week Comments Never 0 [...] Orientation Straight 05/21/2022 10 :16 AM EDT Last Filed Vital Signs Vital Sign Reading Time Taken Comments Blood Pressure 130/80 12/31/2023 1:17 PM EDT Pulse 65 12/31/2023 1:17 PM EDT Temperature 36.7 ??C (98.1 ??F) 12/31/2023 1:17 PM ED T Respiratory Rate 20 12/31/2023 1:17 PM EDT Oxygen Saturation 99% 12/31/2023 1:17 PM EDT Inhaled Oxygen Concentration - - Weight 93.4 kg (205 lb 12.8 oz) 12/31/2023 1:17 PM EDT Height 149.9 cm (4' 11 ) 12/31/2023 1:17 PM EDT Body Mass Index 41.57 12/31/2023 1:17 PM EDT Plan of Treatment Health Maintenance Due Date Last Done Comments CT Colonography 1977 Colonoscopy 1977 Colorectal Cancer Screening 1977 Dental Oral Exam 1977 Dental Prophylaxis 1977 Dental X-Ray: Bitewings 1977 Dental X-Ray: Full Mouth 1977 FIT DNA/Cologuard 1977 FIT 1977 FOBT 1977 HIV Screening 1977 Sigmoidoscopy 1977 Eye Exam 12/13/1987 Family Planning (PISQ) 1992 Hepatitis C Screening 12/13/1995 Hepatitis A Vaccines (1 of 2 - Risk 2-dose series) 1996 Pap Smear 1998 Cervical Cancer Screening 12/13/2007 HPV/Cotest 12/13/2007 Mammogram 2017 Diabetes: Hemoglobin A1C 12/11/2023 024, 11/27/2021, 11/27/2021 COVID-19 Vaccine ( season) 2024 09/25/2022, 08/24/2020, 08/03/2020 Influenza Vaccine (#1) 2024 8, 06/15/2013, 04/03/2012, Additional history exists Alcohol/Substance Use Screening 09/12/2024 09/12/2023 Depression Screening 09/12/2024 09/12/2023, 09/12/19 Diabetes: Foot Exam 09/12/2024 09/12/2023, Diabetes: Urine Protein Screening 09/12/2024 09/12/2023 Lipid Panel 09/12/2024 09/12/2023 Tobacco Screening 12/30/2024 12/31/2023 SDOH Screening 01/06/2025 01/07/2024 DTaP/Tdap/Td Vaccines (3 - Td or Tdap) 09/07/2026 09/07/2016, 09/01/2012 Zoster Vaccines (1 of 2) 12/13/2027 RSV Patients and Patients Aged 60 years or older (1 - 1-dose 75+ series) 2052 Hepatitis B Vaccines Completed 09/14/2013, 06/17/2013, 12/20/2011, Additional history exists Pneumococcal Vaccine: Pediatrics (0 to 5 Years) and At-Risk Patients (6 to 49) Years) Completed 09/12/2023, 12/30/2006 HIB Vaccines Aged Out No longer eligi ble based on patient's age to complete this topic HPV Vaccines Aged Out No longer eligi ble based on patient's age to complete this topic IPV Vaccines Aged Out No longer eligi ble based on patient's age to complete this topic Meningococcal Vaccine Aged Out No rasheed ariel eligible based on patient's age to complete this topic RSV under 20 months Aged Out No longe r eligible based on patient's age to complete this topic Rotavirus Vaccines Aged Out No longer eligible based on patient's age to complete this topic Procedures Procedure Name Priority Date/Time Associated Diagnosis Comments XR LUMBAR SPINE 2-3 VIEWS Routine 07/06/2024 6:36 PM EST XR HIP RIGHT WITH PELVIS 1 VIEW Routine 07/06/2024 6:36 PM EST GLUCOSE, WHOLE BLOOD Routine 07/06/2024 6:21 PM EST POCT GLYCATED HEMOGLOBIN, TOTAL Routine 09/12/2023 11:37 AM EST Type 2 diabetes mellitus with hyperlipidemia (CMS/HCC) ALBUMIN, RANDOM URINE W/CREATININE Routine 09/12/2023 9:40 AM EST Type 2 diabetes mellitus with hyperlipidemia (CMS/HCC) LIPID PANEL, STANDARD Routine 09/12/2023 9:40 AM EST Type 2 diabetes mellitus with hyperlipidemia (CMS/HCC) from Last 3 Months or Most Recently Relevant to Health Maintenance Results * XR Hip right with Pelvis 1 view (07/06/2024 6:36 PM EST) Anatomical Region Laterality Modality Lower Extremities, Hip Bilateral Radiograp hic Imaging 07/06/2024 6:36 PM EST Narrative 07/06/2024 10:01 PM EST ? [facility] ?[address] ?[place] [address] ?XRay Report ? Signed ? Patient: Yesika Farr ?MR#: [id number] ?? 66 ? : 1975 ?Acct:[id number] ? Age/Sex: 48 / F ?ADM Date: 07/06/24 ? Loc: HO.ED ? Attending Dr: ? Ordering Physician: Gianluca Olson MD ?? Date of Service: 07/06/24 ?? Procedure(s): XR hip RT w PEL1V ?? Accession Number(s): [id number] ? cc: KASHMIR GAMING NP; Gianluca Olson MD ? EXAMINATION: ?? XR LUMBOSACRAL SPINE ?? XR PELVIS ?? XR HIP, RIGHT ? CLINICAL INFORMATION: ?? Low back pain. ? COMPARISON: ?? None available. ? TECHNIQUE: ?? 3 views of the lumbar spine (AP, lateral, and coned lumbosacral ?? junction views). ?? Single AP view of the pelvis. ?? 2 views of the right hip (AP and lateral). ? FINDINGS: ?? Lumbar Spine: ?? No evidence of acute fracture or subluxation of the lumbosacral spine. ?? Mild degenerative retrolisthesis of L5 on S1. Otherwise, the vertebral ?? bodies and posterior elements are in anatomic alignment. The vertebral ?? body heights are maintained. Moderate degenerative disc disease at ?? L5-S1. Mild degenerative disc disease at all additional levels. ?? Moderate facet arthropathy from L4-S1. There appears to be at least ?? moderate neural foraminal stenoses at L5-S1. ? Nonobstructive bowel gas pattern is demonstrated in the visualized ?? portions of the abdomen. Changes of prior cholecystectomy. ? Pelvis: ?? No fracture or dislocation of the pelvis. The iliopectineal, ?? ilioischial, and sacral arcuate lines remain intact. The sacroiliac ?? joints remain in normal alignment on the limited view. The femoral ?? heads remain well aligned with their respective acetabula on the single ?? AP view. No radiopaque foreign bodies. ? Right Hip: ?? No fracture or dislocation of the right hip. The femoral head remains ?? well-seated in the acetabulum. The trabecular lines remain intact. Mild ?? degenerative arthropathy of the hip. No suspicious lytic or sclerotic ?? osseous lesions. No focal soft tissue swelling. No radiopaque foreign ?? bodies. ? XR/XR hip RT w PEL1V ?? IMPRESSION: ?? 1. ??No evidence of acute fracture or traumatic subluxation of the ?? lumbar spine, pelvis, or right hip. ?? 2. 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 notably at L5-S1. ?? 3. ??Mild degenerative arthropathy of the right hip. ? Electronically signed by: ??Gab Marcelino DO ??07/06/2024 09:57 PM EST RP ? Dictated By: ?Koffi Marceilno DO ? Signed By: ?<Electronically signed by Koffi Marcelino, DO in OV> ? 07/06/247 ? DD/ 1836 ? TD/TT: 07/06/24 1915 ? Customer Solutions Specialist: JL ? Procedure Note Sofi, Image - 07/06/[address] [address] XRay Report Signed Patient: Yesika Farr MMR#: [id number] 66 : 1975Acct:[id number] Age/Sex: 48 / FADM Date: 07/06/24 Loc: HO.ED Attending Dr: Ordering Physician: Gianluca Olson MD Date of Service: 07/06/24 Procedure(s): XR hip RT w PEL1V Accession Number(s): [id number] cc: KASHMIR GAMING NP; Gianluca Olson MD EXAMINATION: XR LUMBOSACRAL SPINE XR PELVIS XR HIP, RIGHT CLINICAL INFORMATION: Low back pain. COMPARISON: None available. TECHNIQUE: 3 views of the lumbar spine (AP, lateral, and coned lumbosacral junction views). Single AP view of the pelvis. 2 views of the right hip (AP and lateral). FINDINGS: Lumbar Spine: No evidence of acute fracture or subluxation of the lumbosacral spine. Mild degenerative retrolisthesis of L5 on S1. Otherwise, the vertebral bodies and posterior elements are in anatomic alignment. The vertebral body heights are maintained. Moderate degenerative disc disease at L5-S1. Mild degenerative disc disease at all additional levels. Moderate facet arthropathy from L4-S1. There appears to be at least moderate neural foraminal stenoses at L5-S1. Nonobstructive bowel gas pattern is demonstrated in the visualized portions of the abdomen. Changes of prior cholecystectomy. Pelvis: No fracture or dislocation of the pelvis. The iliopectineal, ilioischial, and sacral arcuate lines remain intact. The sacroiliac joints remain in normal alignment on the limited view. The femoral heads remain well aligned with their respective acetabula on the single AP view. No radiopaque foreign bodies. Right Hip: No fracture or dislocation of the right hip. The femoral head remains well-seated in the acetabulum. The trabecular lines remain intact. Mild degenerative arthropathy of the hip. No suspicious lytic or sclerotic osseous lesions. No focal soft tissue swelling. No radiopaque foreign bodies. XR/XR hip RT w PEL1V IMPRESSION: 1. No evidence of acute fracture or traumatic subluxation of the lumbar spine, pelvis, or right hip. 2. 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 3. Mild degenerative arthropathy of the right hip. Electronically signed by: Gab Marcelino DO 07/06/2024 09:57 PM EST RP Dictated By: Koffi Marcelino DO Signed By: <Electronically signed by Koffi Marcelino DO in OV> 07/06/247 DD/ TD/TT: 07/06/24 1915 Customer Solutions Specialist: [facility] External Provider IMG XR PROCEDURES Edited Result - Final * XR Lumbar Spine 2-3 Views (07/06/2024 6:36 PM EST) Anatomical Region Laterality Modality Spine, L-spine Radiographic Fabi ging 07/06/2024 6:36 PM EST Narrative 07/06/2024 10:01 PM EST ? [facility] ?[address] ?[place] [address] ?XRay Report ? Signed ? Patient: Yordan,Yesika M ?MR#: [id number] ?? 66 ? : 1975 ?Acct:[id number] ? Age/Sex: 48 / F ?ADM Date: 07/06/24 ? Loc: HO.ED ? Attending Dr: ? Ordering Physician: Gianluca Olson MD ?? Date of Service: 07/06/24 ?? Procedure(s): XR lumbar spine 2-3V ?? Accession Number(s): [id number] ? cc: KASHMIR GAMING NP; Gianluca Olson MD ? EXAMINATION: ?? XR LUMBOSACRAL SPINE ?? XR PELVIS ?? XR HIP, RIGHT ? CLINICAL INFORMATION: ?? Low back pain. ? COMPARISON: ?? None available. ? TECHNIQUE: ?? 3 views of the lumbar spine (AP, lateral, and coned lumbosacral ?? junction views). ?? Single AP view of the pelvis. ?? 2 views of the right hip (AP and lateral). ? FINDINGS: ?? Lumbar Spine: ?? No evidence of acute fracture or subluxation of the lumbosacral spine. ?? Mild degenerative retrolisthesis of L5 on S1. Otherwise, the vertebral ?? bodies and posterior elements are in anatomic alignment. The vertebral ?? body heights are maintained. Moderate degenerative disc disease at ?? L5-S1. Mild degenerative disc disease at all additional levels. ?? Moderate facet arthropathy from L4-S1. There appears to be at least ?? moderate neural foraminal stenoses at L5-S1. ? Nonobstructive bowel gas pattern is demonstrated in the visualized ?? portions of the abdomen. Changes of prior cholecystectomy. ? Pelvis: ?? No fracture or dislocation of the pelvis. The iliopectineal, ?? ilioischial, and sacral arcuate lines remain intact. The sacroiliac ?? joints remain in normal alignment on the limited view. The femoral ?? heads remain well aligned with their respective acetabula on the single ?? AP view. No radiopaque foreign bodies. ? Right Hip: ?? No fracture or dislocation of the right hip. The femoral head remains ?? well-seated in the acetabulum. The trabecular lines remain intact. Mild ?? degenerative arthropathy of the hip. No suspicious lytic or sclerotic ?? osseous lesions. No focal soft tissue swelling. No radiopaque foreign ?? bodies. ? XR/XR lumbar spine 2-3V ?? IMPRESSION: ?? 1. ??No evidence of acute fracture or traumatic subluxation of the ?? lumbar spine, pelvis, or right hip. ?? 2. 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 notably at L5-S1. ?? 3. ??Mild degenerative arthropathy of the right hip. ? Electronically signed by: ??Gab Marcelino DO ??07/06/2024 09:57 PM EST RP ? Dictated By: ?Koffi Marcelino DO ? Signed By: ?<Electronically signed by Koffi Marcelino DO in OV> ? 07/06/247 ? DD/ 1836 ? TD/TT: 07/06/24 1915 ? Customer Solutions Specialist: JL ? Procedure Note Iker Farah - 07/06/2024 [place] [id number] [facility] [address] XRay Report Signed Patient: Yesika Farr MMR#: [id number] 66 : 1975Acct:[id number] Age/Sex: 48 / FADM Date: 07/06/24 Loc: HO.ED Attending Dr: Ordering Physician: Gianluca Olson MD Date of Service: 07/06/24 Procedure(s): XR lumbar spine 2-3V Accession Number(s): [id number] cc: KASHMIR GAMING NP; Gianluca Olson MD EXAMINATION: XR LUMBOSACRAL SPINE XR PELVIS XR HIP, RIGHT CLINICAL INFORMATION: Low back pain. COMPARISON: None available. TECHNIQUE: 3 views of the lumbar spine (AP, lateral, and coned lumbosacral junction views). Single AP view of the pelvis. 2 views of the right hip (AP and lateral). FINDINGS: Lumbar Spine: No evidence of acute fracture or subluxation of the lumbosacral spine. Mild degenerative retrolisthesis of L5 on S1. Otherwise, the vertebral bodies and posterior elements are in anatomic alignment. The vertebral body heights are maintained. Moderate degenerative disc disease at L5-S1. Mild degenerative disc disease at all additional levels. Moderate facet arthropathy from L4-S1. There appears to be at least moderate neural foraminal stenoses at L5-S1. Nonobstructive bowel gas pattern is demonstrated in the visualized portions of the abdomen. Changes of prior cholecystectomy. Pelvis: No fracture or dislocation of the pelvis. The iliopectineal, ilioischial, and sacral arcuate lines remain intact. The sacroiliac joints remain in normal alignment on the limited view. The femoral heads remain well aligned with their respective acetabula on the single AP view. No radiopaque foreign bodies. Right Hip: No fracture or dislocation of the right hip. The femoral head remains well-seated in the acetabulum. The trabecular lines remain intact. Mild degenerative arthropathy of the hip. No suspicious lytic or sclerotic osseous lesions. No focal soft tissue swelling. No radiopaque foreign bodies. XR/XR lumbar spine 2-3V IMPRESSION: 1. No evidence of acute fracture or traumatic subluxation of the lumbar spine, pelvis, or right hip. 2. 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 3. Mild degenerative arthropathy of the right hip. Electronically signed by: Gab Marcelino DO 07/06/2024 09:57 PM EST RP Dictated By: Koffi Marcelino DO Signed By: <Electronically signed by Koffi Marcelino DO in OV> 07/06/242156 DD/ 35 TD/TT: 07/06/241914 Customer Solutions Specialist: [facility] External Provider IMG XR PROCEDURES Edited Result - Final * (ABNORMAL) Glucose, Whole Blood (07/06/2024 6:21 PM EST) Glucose, Whole Blood 307(H) 60 - 115 mg/dL [facility] Comment:METER #: [id number] 07/06/2024 6:21 PM EST 07/06/2024 6:29 PM EST Generic External Data Provider LAB BLOOD ORDERAB LES Final Result Performing Organization Address City/State/[facility] [[email or web address]] Co de Phone Number [facility] [address] [place] [phone] * (ABNORMAL) POCT HGB A1C (09/12/2023 11:37 AM EST) Pathologist [facility] Hemoglobin A1C 10.6(A) 4.0 - 6.0 % QC Media Lot # [id number] Lot# Expiration Date ,125 Blood 09/12/2023 11:3 7 AM EST [employer] ANP POINT OF CARE TEST ENTER/EDIT OR DERABLES Final Result * (ABNORMAL) Albumin, Random Urine W/Creatinine (09/12/2023 9:40 AM EST) Creatinine, Urine 122.89 mg/dL [facility] Microalbumin Urine 225.0 mg/L H [facility] Microalbum Creatinine Ratio Ur 183.0(H) <30 ug/mg cr [facility] Comment:Albumin/Creatinine R atio Reference Ranges: Normal: < 30 ug/mg creatinine Microalbuminuria: 30 - 300 ug/mg creatinineClinical Albuminuria: > 300 ug/mg creatinine Urine 09/12/2023 9:40 AM EST 09/12/2023 11:12 AM EST [employer] ANP LAB URINE ORDERABLES Final Resul t Performing Organization Address [facility] [[email or web address]] Co de Phone Number [facility] [address] [place] [phone] * Lipid Panel, Standard (09/12/2023 9:40 AM EST) Triglycerides 88 <150 mg/dL [facility] Comment:Desirable Triglyceri de: less than 150 mg/dLBorderline High Triglyceride 150-199 mg/dLHigh Triglyceride: 200-499 mg/dLVery High Triglyceride: greater than or equal to 5OO mg/dL Cholesterol 111 <200 mg/dL [facility] Comment:Desirable Cholestero l: less than 200 mg/dLBorderline High Cholesterol: 200-239 mg/dLHigh Cholesterol: greater than 239 mg/dL LDL Cholesterol Calculated 52 <100 mg/dL [facility] Comment:Desirable LDL: less than 100 mg/dLNear Optimal/Above Optimal LDL: 110- 129 mg/dLBorderline High LDL: 130-159 mg/dLHigh LDL: 160-189 mg/dLVery High LDL: greater than or equal to 190 mg/dL HDL Cholesterol 42 >40 mg/dL [facility] Comment:Desirable HDL: great er than 40 mg/dL Note: This HDL assay may give artificially low results in patients with liver disease. Blood Venous blood specimen / Unknown 09/12/2023 9:40 AM EST 09/12/2023 11:22 AM EST us [employer] ANP LAB BLOOD ORDERABLES Final Resul t Performing Organization Address [facility] [[email or web address]] Co de Phone Number [facility] [address] [place] [phone] from Last 3 Months or Most Recently Relevant to Health Maintenance Insurance [place] [facility] MEDICAID STAND [place] [address] [place] [id number] Care Teams Educational Speech Language Clinician Relationship Specialty Start Date End Date [employer] ANP [address] [place] [phone] PCP - General Family Medicine 06/28/22
--- OUTSIDE RECORDS SUMMARY | 2024-08-18 23:32 | XMS_ITS | Encounter Summary ---
Author Organization [email or web address] Address [address] [place] [address] [address] [place] [address] Care Team Providers Care Traffic Court Referee Name Role Phone Cathy Gerber Primary Care Provider [phone] Reason for Visit * Reason Onset Date Comments Med Refill 08/07/2023 Encounter Details Date Type Department Care Team ([facility] st Contact Info) Description 08/07/2023 Telephone [facility] MEDICINE [address] [place], [place] [phone] Cathy Gerber ANP [address] [place] [address] Med Refill Social History Tobacco Use Types Packs/Day Years [...] Telephone Encounter - Jennifer Jiménez LPN - 08/07/2023 2:46 PM EST Medication was sent to [facility][id number] on 06/28/23 with 5 refills. * Telephone Encounter - Darrick Ashley - 08/07/2023 2:44 PM EST TC from pt requesting medication refill. Medications needing refill : insulin glargine (Lantus SoloStar) 100 UNIT/ML pen To be sent to: [id number] documented in this encounter Plan of Treatment Not on file documented as of this encounter Visit Diagnoses Not on filedocumented in this encounter Care Teams Traffic Court Referee Relationship Specialty Start Date End Date Cathy Gerber ANP [address] [place] [address] PCP - General Family Medicine 06/28/22 documented as of this encounter
--- OUTSIDE RECORDS SUMMARY | 2024-08-18 23:32 | XMS_ITS | Encounter Summary ---
Author Organization [employer] [facility] Address [address] [place] [address] 7t [place] [address] Care Team Providers Care Manager Business Management Name Role Phone Cathy Gerber Primary Care Provider [phone] Encounter Details Date Type Department Care Team (Late st Contact Info) Description 08/30/2022 Abstract [facility] MEDICINE [address] [place], [place] [phone] Cathy Gerber ANP 230 [place], [place] [phone] Social History Tobacco Use Types Packs/Day Years [...] on filedocumented in this encounter Care Teams Manager Business Management Relationship Specialty Start Date End Date Cathy Gerber ANP [address] [place], [place] [phone] PCP - General Family Medicine 06/28/22 documented as of this encounter
--- OUTSIDE RECORDS SUMMARY | 2024-08-18 23:32 | XMS_ITS | Encounter Summary ---
Author Organization [employer] [facility] Address [address] [place] [address] 7t [place] [address] Care Team Providers Care Ultrasound Technologist Name Role Phone Cathy Gerber Primary Care Provider Encounter Details Date Type Department Care Team (Late st Contact Info) Description 09/03/2022 Abstract [facility] MEDICINE 230 [place], [place] [phone] Cathy Gerber ANP 230 [place], [place] [phone] Social History Tobacco Use Types Packs/Day Years [...] on filedocumented in this encounter Care Teams Ultrasound Technologist Relationship Specialty Start Date End Date Cathy Gerber ANP 230 [place], [place] [phone] PCP - General Family Medicine 06/28/22 documented as of this encounter
--- OUTSIDE RECORDS SUMMARY | 2024-08-18 23:33 | XMS_ITS | Encounter Summary ---
Author Organization [employer] Address [address] [facility] 7t [place] [address] Care Team Providers Care Traffic Signal Supervisor Maintenance Name Role Phone Cathy Gerber Primary Care Provider [phone] Reason for Visit * Reason Onset Date Comments Nurse Triage 07/30/2024 Encounter Details Date Type Department Care Team ([facility] st Contact Info) Description 07/30/2024 Telephone [facility] MEDICINE 230 [place], [place] [phone] Cathy Gerber ANP [address] [place] [address] Nurse Triage Social History Tobacco Use Types Packs/Day [...] encounter Miscellaneous Notes * Telephone Encounter - Shelly Victoria RN - 07/30/2024 4:16 PM EST called pt to triage, spoke to pt. pt states bilateral foot and leg pain, getting worse for a while now. pt states intermittent tingling but denies any known injury, redness, significant swelling or other associated symptoms. pt also states has a thick, foul vaginal discharge with mild itching for several days. given appt tomorrow with red team provider at 11:30 for exam. advised home care: rest, fluids, elevate, ice, heat, warm tub baths, and call back as needed. pt understands and agrees with plan. insurance verified. Multiple (2) protocols were used on this call. Disposition for Call: See in Office or Video Visit Today Protocol Used: Vaginal Discharge (Adult) Protocol-Based Disposition: See in Office or Video Visit Today Positive Triage Question: * Patient wants to be seen * All higher-acuity triage questions were negative Care Advice Discussed: * Genital Hygiene * Reasons To Call Back - Discharge becomes foul smelling or itchy - You become worse Protocol Used: Leg Pain (Adult) Protocol-Based Disposition: See in Office or Video Visit within 3 Days Video visit offer not recorded Positive Triage Question: * Moderate pain (e.g., interferes with normal activities, limping) and present > 3 days * All higher-acuity triage questions were negative Care Advice Discussed: * Reassurance and Education - Leg Pain * Pain Medicines * Reasons To Call Back - You become worse * Telephone Encounter - Huber Alex - 07/30/2024 3:49 PM EST Symptom: Bluish Hands or Feet Outcome: Transfer to a nurse or provider NOW! Reason: Can't stand (unless normally can't stand) The caller accepted this outcome. Symptom: Vaginal Symptoms - Not Bleeding Outcome: Schedule an appointment to be seen within 24 hours Reason: Caller denied all higher acuity questions The caller accepted this outcome. documented in this encounter Plan of Treatment Not on file documented as of this encounter Visit Diagnoses Not on filedocumented in this encounter Additional Health Concerns Assessment Noted Time PHQ-9 Depression Total Score: 0 09/12/19 24 10:17 AM EST documented as of this encounter Care Teams Traffic Signal Supervisor Maintenance Relationship Specialty Start Date End Date Cathy Gerber ANP [address] [place] [address] PCP - General Family Medicine 06/28/22 documented as of this encounter
--- OUTSIDE RECORDS SUMMARY | 2024-08-18 23:33 | XMS_ITS | Encounter Summary ---
Author Organization [employer] Address [address] [facility] 7t [place] [address] Care Team Providers Care Baker Bench Name Role Phone Cathy Gerber Primary Care Provider [phone] Reason for Visit * Reason Onset Date Comments Prior Authorization 10/07/2023 Encounter Details Date Type Department Care Team ([facility] st Contact Info) Description 10/07/2023 Telephone [facility] MEDICINE 230 [place], [place] [phone] Cathy Gerber ANP 230 [place] [address] Prior Authorization Social History Tobacco Use Types Packs/Day Years [...] before you got money to buy more: Never True 09/12/2023 Within the past 12 months,th e food you bought just didn't last and you didn't have enough money to get more: Never True Transportation Answer Date Recorded In the past [...] encounter Miscellaneous Notes * Telephone Encounter - Audra Vasquez - 10/16/2023 1:55 PM EDT CLOTH MERCERIZER BACK TENDER SPOKE WITH PATIENT NOTIFIED 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 PATIENT AGREED TO CALL. * Telephone Encounter - Jennifer Jiménez LPN - 10/07/2023 3:51 PM EDT Medication pended to provider. * Telephone Encounter - Darrick Ashley - 10/07/2023 3:45 PM EDT TC from pt requesting medication refill. Medications needing refill: Insulin Pen Needle (pen needle 10/04 ) 31G x 5 mm misc, Alcohol Swabs (Alcohol Prep) 70 % pads, and pregabalin (Lyrica) 50 MG capsule. To be sent to: [facility]/pharmacy #[id number] documented in this encounter Plan of Treatment Not on file documented as of this encounter Visit Diagnoses Not on filedocumented in this encounter Additional Health Concerns Assessment Noted Time PHQ-9 Depression Total Score: 0 09/12/19 24 10:17 AM EST documented as of this encounter Care Teams Baker Bench Relationship Specialty Start Date End Date Cathy Gerber ANP [address] [place] [address] PCP - General Family Medicine 06/28/22 documented as of this encounter
--- OUTSIDE RECORDS SUMMARY | 2024-08-18 23:33 | XMS_ITS | Encounter Summary ---
Author Organization [employer] Address [address] [facility] 7t [place] [address] Care Team Providers Care Head Of Research & Insights Name Role Phone Cathy Gerber Primary Care Provider [phone] Reason for Visit * Reason Onset Date Comments Nurse Triage 07/30/2024 Encounter Details Date Type Department Care Team ([facility] st Contact Info) Description 07/30/[address] [facility] MEDICINE 230 [place], [place] [phone] Cathy Gerber ANP [address] [place] [address] Nurse Triage Social History Tobacco Use Types [...] encounter Miscellaneous Notes * Telephone Encounter - Lucia Freeman RN - 07/30/2024 4:14 PM EST Duplicate message. See other triage note sent for same concern. Addressed by triage team nurse. * Telephone Encounter - Huber Alex - 07/30/2024 3:57 PM EST Symptom: Vaginal Symptoms - Not Bleeding Outcome: [...] documented as of this encounter Care Teams Head Of Research & Insights Relationship Specialty Start Date End Date Cathy Gerber ANP [address] [place] [phone] PCP - General Family Medicine 06/28/22 documented as of this encounter
--- OUTSIDE RECORDS SUMMARY | 2024-08-18 23:33 | XMS_ITS | Encounter Summary ---
Author Organization [employer] Address [address] [facility] 7t [place] [address] Care Team Providers Care Wind Turbine Controls Engineer Name Role Phone Cathy Gerber Primary Care Provider [phone] Reason for Visit * Reason Comments Med Refill Encounter Details Date Type Department Care Team ([facility] st Contact Info) Description 07/26/2024 Refill [facility] MEDICINE [address] [place], [place] [phone] Cathy Gerber ANP [address] [place] [address] Social History Tobacco Use Types Packs/Day Years [...] documented as of this encounter Care Teams Wind Turbine Controls Engineer Relationship Specialty Start Date End Date Cathy Gerber ANP [address] [place] [address] PCP - General Family Medicine 06/28/22 documented as of this encounter
--- OUTSIDE RECORDS SUMMARY | 2024-08-18 23:33 | XMS_ITS | Clinical Summary ---
Author Organization [employer] [facility] Address [address] [place] [address] Care Team Providers Care Glass Deposition Tender Name Role Phone Cathy Gerber NP Primary Care Provider [phone] Social History Tobacco Use Types Packs/Day Years Used Date Smoking Tobacco: Never Assessed Sex and Gender Information Value Date Recorded Sex Assigned at Not on file Gender Identity Not on file Sexual Orientation Not on file Plan of Treatment Health Maintenance Due Date Last Done Comments Breast Cancer Screening 1977 Diabetes: Annual GFR (Glomer ular Filtration Rate) 1977 Pneumococcal Vaccine: Pediat rics (0 to 5 Years) and At-Risk Patients (6 to 64 Years) (1 of 2 - PCV) 12/13/1983 Diabetes: Annual Foot Exam 12/13/1987 Diabetes: Annual Retina Eye Exam 12/13/1987 DTaP,Tdap,and Td Vaccines (1 - Tdap) 1996 Hepatitis A Vaccines (1 of 2 - Risk 2-dose series) 1996 Hepatitis B Vaccines (1 of 3 - 19+ 3-dose series) 1996 Cervical Cancer Screening: P ap Smear 1998 Cholesterol Screening (Lipid Panel) 02/11/2024 Colorectal Cancer Screening: Colonoscopy 02/11/2024 Depression Screening 02/11/2024 HIV Screening 02/11/2024 Hepatitis C Screening 02/11/2024 Social Influencers of Health Screening 02/11/2024 COVID-19 Vaccine ( - 2023-2 5 season) 2024 Influenza Vaccine (#1) 2024 Diabetes: Annual Urine Albumin-Creatinine Ratio (uACR) 05/03/2024 Diabetes: Blood Sugar Contro l Test (HGBA1C) 05/03/2024 Hypertension/CHF/CAD Annual BMP Blood Test 05/03/2024 HIB Vaccines Aged Out No longer eligi ble based on patient's age to complete this topic HPV Vaccines Aged Out No longer eligi ble based on patient's age to complete this topic IPV Vaccines Aged Out No longer eligi ble based on patient's age to complete this topic MMR Vaccines Aged Out No longer eligi ble based on patient's age to complete this topic Meningococcal ACWY Vaccine Aged Out N o longer eligible based on patient's age to complete this topic RSV Immunization Patients Un che[place] 20 months Aged Out No longer eligible b ased on patient's age to complete this topic Varicella Vaccines Aged Out No longer eligible based on patient's age to complete this topic Care Teams Glass Deposition Tender Relationship Specialty Start Date End Date Cathy Gerber NP [address] [place] [phone] PCP - General 09/19/23
--- OUTSIDE RECORDS SUMMARY | 2024-08-18 23:33 | XMS_ITS | Encounter Summary ---
Author Organization [employer] Address [address] [facility] 7t [place] [address] Care Team Providers Care Micro Photographer Name Role Phone Cathy Gerber MICHAEL Primary Care Provider Reason for Visit * Reason Onset Date Comments No Show 07/31/2024 Encounter Details Date Type Department Care Team ([facility] st Contact Info) Description 07/31/2024 Telephone [facility] MEDICINE 230 [place], [place] [phone] Jennifer Mckenzie DO 230 [place], [place] [phone] No Show Social History Tobacco Use Types Packs/Day Years [...] encounter Miscellaneous Notes * Telephone Encounter - Cassie Jeter - 07/31/2024 12:29 PM EST Pt no show to appt. bilateral foot and leg pain. also, thick foul vaginal odor. Ns letter sent via [employer] documented in this encounter Plan of Treatment Not on file documented as of this encounter Visit Diagnoses Not on filedocumented in this encounter Additional Health Concerns Assessment Noted Time PHQ-9 Depression Total Score: 0 09/12/19 24 10:17 AM EST documented as of this encounter Care Teams Micro Photographer Relationship Specialty Start Date End Date Cathy Gerber ANP 230 [place] [address] PCP - General Family Medicine 06/28/22 documented as of this encounter
--- OUTSIDE RECORDS SUMMARY | 2024-08-18 23:33 | XMS_ITS | Encounter Summary ---
Author Organization [employer] [facility] Address [address] [place] [address] 7t [place] [address] Care Team Providers Care Varnish Mixer Name Role Phone Cathy Gerber Primary Care Provider [phone] Reason for Visit * Reason Comments Med Refill Encounter Details Date Type Department Care Team ([facility] st Contact Info) Description 11/23/2022 Refill [facility] MEDICINE 230 [place], [place] [phone] Cathy Gerber ANP 230 [place], [place] [phone] Chronic pain syndrome Social History Tobacco Use Types Packs/Day Years [...] suspected to have Coronavirus/COVID-19? No / Unsure 11/13/2022 10:49 AM EDT documented as of this encounter Plan of Treatment Not on file documented as of this encounter Visit Diagnoses Diagnosis Chronic pain syndrome documented in this encounter Care Teams Varnish Mixer Relationship Specialty Start Date End Date Cathy Gerber ANP 230 [place], [place] [phone] PCP - General Family Medicine 06/28/22 documented as of this encounter
--- OUTSIDE RECORDS SUMMARY | 2024-08-18 23:33 | XMS_ITS | Encounter Summary ---
Author Organization [employer] Address [address] [facility] 7t [place] [address] Care Team Providers Care Image Editor Name Role Phone Cathy Gerber Primary Care Provider [phone] Reason for Visit * Reason Comments Med Refill Encounter Details Date Type Department Care Team ([facility] st Contact Info) Description 07/31/[address] [facility] MEDICINE [address] [place], [place] [phone] Cathy Gerber ANP 230 [place] [address] Type 2 diabetes mellitus with hyperlipidemia (CMS/HCC) Social History Tobacco Use Types Packs/Day [...] as of this encounter Visit Diagnoses Diagnosis Type 2 diabetes mellitus with hyperlipidemia (CMS/HCC) documented in this encounter Additional Health Concerns Assessment Noted Time PHQ-9 Depression Total Score: 0 09/12/19 24 10:17 AM EST documented as of this encounter Care Teams Image Editor Relationship Specialty Start Date End Date Cathy Gerber ANP [address] [place] [address] PCP - General Family Medicine 06/28/22 documented as of this encounter
--- OUTSIDE RECORDS SUMMARY | 2024-08-18 23:33 | XMS_ITS | Data Portability ---
Author Organization [facility] Dr. TATTOFF [facility], Main Office Address [address] [place] [address] Care Team Providers Care Aircraft Systems Technician Name Role Phone [facility] OTHER [facility] Primary Care Provider Assessment Encounter Date Assessment Date Assessment LastModified by Organization Details LastModified Time 04/21/2021 04/21/202104/17: na 141, k 4.4, bun 9, creat 0.70, wbc 9.94, hgb 12.8, hct 40.3 02/21: A1C 9.2 glord Not available 04/21/2021 12:29:43 Plan of Treatment Reminders Order Date Submit Date Provider Last Modified By Organization Details Last Modified Time Details Appointments None record ed. Lab None record ed. Referral None record ed. Procedures None record ed. Surgeries None record ed. Imaging None record ed. Medication Orders None record ed. Patient TargetsNo targets recorded. Patient Instructions Encounter Date Encounter Id Patient Instructions Last Modified By Organization Details Last Modified Time 04/26/2021 [id number] F/U Appointments : see community mental health social worker paperwork for details Total time spent on discharge: 60 minutes Scripts for all meds and DME for 30-day supply given to patient [email or web address] Not available 04/26/2021 21:51:13 Reason for Referral None Reported. Problems Name Problem SNOMED Code Status Onset Date Resolution Date Notes Provider Name and Address Organization Details Recorded Time Seizure disorder 233443566 Active 2019 Jose A Lassiter MD [address] , [address], [place], [address], [facility] [email or web address] 0 13:55:28 Generalized anxiety disorder 73501099 Active 2019 MARK Ramirez [address], [address], [place], [address], [facility] [employer] [facility] 0 09:49:37 SARS-CoV-2 Active 2019 RICKEY RamirezP [address], [address], [place], [address], [facility] 0 15:33:01 Liver enzymes level above reference range 371667971 Active 2019 MARK Ramirez [address], [address], [place], [address], [facility] 0 15:39:51 Neuropathy 768861782 Active 2019 Moraima Hanson MD [address], [address], [place], [address], [facility] 0 01:05:16 Asthma 365909768 Active 2020 Kristi [place] null, [facility] [employer] [facility] 1 14:43:52 Restless legs 99478411 Active 2020 Moraima Hanson MD [address], [address], [place], [address], [facility] [employer] [facility] 1 19:06:32 Hemiplegia and/or hemiparesis following stroke 2422871159050 7 Active 2018 Moraima Hanson MD [address], [address], [place], [address], [facility] [employer] [facility] 9 14:54:01 Essential hypertensio n 45928025 Active 2018 Moraima Hanson MD [address], [address], [place], [address], [facility] [employer] [facility] 9 14:57:00 History of cocaine abuse 6611385391563 06 Active 2018 Moraima Hanson MD [address], [address], [place], [address], [facility] [employer] [facility] 9 14:57:30 Schizoaffec tive disorder, mixed type 154674431 Active 2018 Moraima Hanson MD [address], [address], [place], [address], [place] [employer] 9 14:59:21 Insomnia 822187701 Active 2018 Moraima Hanson MD [address], [address], [place], [address], [facility] [employer] 9 15:02:16 History of alcoholism 386416317 Active 2018 Moraima Hanson MD [address], [address], [place], [address], [facility] [employer] 9 15:05:25 Chronic pain syndrome 835081978 Active 2018 Moraima Hanson MD [address], [address], [place], [address], [employer] 9 01:07:55 Diabetes mellitus 50035676 Active 2019 Kristi Hernandez [facility], [employer] 0 11:07:50 Problem Notes None recorded. Medical Equipment None Reported. Allergies No known drug allergies Medications Not known to be on any medication Vitals Date Recorded Body height Systolic blood pressure Diastolic blood pressure Provider Name and Address Organization Details Last Updated DateTime 02/28/2021 142.24 cm 125 mm[Hg] 86 mm[Hg] Kristi Hernandez [place] [employer] 02/28/2021 10:01:32 Date Recorded Body height Heart rate Respiratory rate Body temperature Oxygen saturation Oxygen saturation in Arterial blood by Pulse oximetry Systolic blood pressure Diastolic blood pressure Provider Name and Address Organization Details Last Updated DateTime 142.24 cm 95 /min 20 /min 97.5 [degF] 96 % 96 % 129 mm[Hg] 87 mm[Hg] MARK Ramirez [address], [address], [place], [address], [employer] 1 11:18:00 Date Recorded Body height Systolic blood pressure Diastolic blood pressure Provider Name and Address Organization Details Last Updated DateTime 04/10/2021 142.24 cm 126 mm[Hg] 79 mm[Hg] Kristi Hernandez [facility] ralali 04/10/2021 15:45:20 Date Recorded Body height Body temperature Systolic blood pressure Diastolic blood pressure Provider Name and Address Organization Details Last Updated DateTime 04/21/2021 142.24 cm 97.1 [degF] 132 mm[Hg] 82 mm[Hg] BIMAL NGUYEN [address], [address], [place], [address] , [email or web address] 12:15:12 Date Recorded Body height Body temperature Heart rate Respiratory rate Oxygen saturation Oxygen saturation in Arterial blood by Pulse oximetry Body mass index (BMI) Body weight Systolic blood pressure Diastolic blood pressure Provider Name and Address Organization Details Last Updated DateTime 142.24 cm 97.3 [degF] 84 /min 18 /min 97 % 97 % 53.9 kg/m2 098892. 25 g 132 mm[Hg] 82 mm[Hg] EM NAIR PA-C [address], [place], [address], [email or web address] 21:23:07 Social History Question Answer Notes LastModified by Organizat ion Details LastModified Time Tobacco Smoking Status Former Smoker hasn't smoked since CVA in 11/07 Not Available [employer] 05/17/2020 03:13:22 Do You Have An Advance Directive? Yes Full Code [id number] Information not available 05/17/2020 What Is Your Level Of Alcohol Consumption? None Hx Of Heavy Use [id number] Information not available 05/17/2020 How Much Tobacco Do You Chew? None [id number] Information not available 05/17/2020 Do You Or Have You Ever Used E-cigarettes Or Vape? Former User Of Electronic Cigarettes [id number] Information not available 05/17/2020 Do You Have A Medical Power Of Courtesy Driver? No [id number] Information not available 05/17/2020 What Was The Date Of Your Most Recent Tobacco Screening? 10/28/2020 [email or web address] Information not available 11/05/2020 Do You Or Have You Ever Used Smokeless Tobacco? Never Used Smokeless Tobacco [id number] Information not available 05/17/2020 How Much Tobacco Do You Smoke? No [id number] Information not available 05/17/2020 How Many Years Have You Smoked Tobacco? 25 [id number] Information not available 05/17/2020 Sex: Unknown Functional Status None recorded. Mental Status None recorded. Family History Nothing Reported Notes:both parents are , brother was murdered 10 yrs ago Medical History No medical history recorded. Gynecological HistoryNo gynecological history recorded. Obstetrics History GPAL:G 0 P 0 0 0 0 Immunizations Vaccine Type Date Status Note Provider Alberto e and Address Organization Details Recorded Time COVID-19, mRNA, LNP-S, PF, 30 mcg/0.3 mL dose 08/24/2020 completed Loisberyl Jo [facility] 10/25/2020 14:49:01 COVID-19, mRNA, LNP-S, PF, 30 mcg/0.3 mL dose 08/03/2020 completed Lois Jo [facility] 10/25/2020 14:49:09 Past Encounters Encounter ID Performer Location Encounter Start Date Encounter Closed Date Diagnosis/Indication Diagnosis SNOMED-CT Code Diagnosis ICD10 Code Diagnosis Note [id number] Moraima Hanson MD [facility] on [address] [place] [address] 07/16/2019 13:30:56 07/29/2019 16:09:58 Hemiplegia and/or hemiparesis following stroke 3844646415 9107 I69.151 With minimal function of RLE and better, but not normal function of RUE. Needs PT/OT for strengthen ing and function. Hopefully will still have continued improvemen t. Essential hypertension 63583019 I10 Elevated this AM, then improved. May be due to new environmen t. Monitor closely and adjust meds as needed. parameters are SBP<130 and DBP<80. Continue lisinopril 10 mg qd and doxazosin 1 mg qd. Also on clonidine 0.2 mg BID. for mood which will help BP. Monitor BP and labs. History of cocaine abuse 6931670730 21428 F14.10 No use in 8 months. Will likely be LTC. Monitor for urge to use. Schizoaffe ctive disorder, mixed type 314718671 F25.0 With psych involvemen t at prior facility. With depression regarding physical limitation s. Continue Cymbalta 30 mg BID, Remeron 7.5 mg qhs, Buspar 10 mg TID, Abilify 7.5 mg qd, and clonidine 0.2 mg BID. Psych consult. Chronic pain syndrome 37 2640025 G89.4 With right leg pain since stroke. Parasthesi as. She says gabapentin doesn't help. May need increased dose, but for now will continue gabapentin 600 mg QID, lidoderm patch, cyclobenza lalo 10 mg BID and ibuprofen 400 mg TID prn. Insomnia 496994943 G47.0 9 Meds as above. Monitor sleep patterns. History of alcoholism 16 8213815 F10.21 Continue Folic acid and thiamine. Monitor [id number] Kristi Hernandez [facility] on [address] [place] [address] 07/27/2019 10:31:51 08/04/2019 16:25:19 Hemiplegia and/or hemiparesis following stroke 7765048574 9107 I69.151 With minimal function of RLE and better, but not normal function of RUE.Cont PT/OT Essential hypertension 96854725 I10 BP mostly well controlled Continue lisinopril 10 mg qd and doxazosin 1 mg qd. Monitor BP and labs. Schizoaffe ctive disorder, mixed type 475242566 F25.0 Continue Cymbalta 30 mg BID, Remeron 7.5 mg qhs, Buspar 10 mg TID, Abilify 7.5 mg qd, and clonidine 0.2 mg BID. Psych consult. History of alcoholism 16 9157426 F10.21 Continue Folic acid and thiamine. Monitor Diabetes mellitus 518849 09 E11.9 Add metformin 500 mg BIDSliding scale insulin TID-will attempt to d/c this if can control glucose with oral agentsObta in HbA1c now-was 5.4 in r blood glucose [id number] Kristi Hernandez [facility] on [address] [place] [address] 08/03/2019 14:54:49 08/05/2019 13:34:01 Diabetes mellitus 28910018 E11.9 Increase metformin 850 mg BID-goal to d/c sliding scale insulin if can control with oral agents aloneSlidi ng scale insulin TIDMonitor blood glucose [id number] Kristi Hernandez [facility] on [address] [place] [address] 08/12/2019 08:07:16 08/14/2019 16:30:28 Diabetes mellitus 81548734 E11.9 Increase metformin 1000 mg BIDSliding scale insulin TIDMonitor blood glucose Repeat HbA1c in October Hemiplegia and/or hemiparesis following stroke 3447928591 9107 I69.151 With minimal function of RLE and better, but not normal function of RUE.Cont PT/OT Essential hypertension 12543796 I10 BP well controlled Continue lisinopril 10 mg qd and doxazosin 1 mg qd. Monitor BP and labs. Schizoaffe ctive disorder, mixed type 380781704 F25.0 Continue Cymbalta 30 mg BID, Remeron 7.5 mg qhs, Buspar 10 mg TID, Abilify 7.5 mg qd, and clonidine 0.2 mg BID. Psych consult. History of alcoholism 16 7320287 F10.21 Continue Folic acid and thiamine. Monitor Insomnia 931367779 G47.0 9 Previously on trazodone and seroquel however states these medication s caused her to gain weightMela tonin ineffectiv e per patientWil l [place] [id number] Kristi Ames [facility] on [address] [place] [address] 08/17/2019 12:32:07 08/25/2019 08:58:18 Tonic-clonic seizure 21130832 G40.309 Send to ED to r/o new onset seizure disorder Diabetes mellitus 984474 09 E11.9 Metformin 1000 mg BIDSliding scale insulin TIDMonitor blood glucose-cu rrently stable Hemiplegia and/or hemiparesis following stroke 6168814293 9107 I69.151 With minimal function of RLE and better, but not normal function of RUE.Cont PT/OT [id number] [facility] [address] [place] [address] 08/18/2019 11:16:05 08/25/2019 09:28:10 Tonic-clonic seizure 19192042 G40.309 Request neurology consult for seizure work-upMon itor for further seizure activity Hemiplegia and/or hemiparesis following stroke 4313710978 9107 I69.151 With minimal function of RLE and better, but not normal function of RUE.Cont PT/OT [id number] [facility] [address] [place] [address] 08/31/2019 12:41:20 09/03/2019 09:55:53 Tonic-clonic seizure 94330655 G40.309 Was recently started on KeppraNeur o consult states if skin change/noble h develops to immediatel y d/c medKeppra now d/c'dWill have nursing update neurology and request alternativ e medSeizure precaution s in place [id number] Jose A Lassiter MD [facility] on [address] [place] [address] 09/15/2019 13:51:15 09/21/2019 15:28:53 Seizure disorder 829708400 G40.89 eval by dano agudelo keppra to 500 mg bidcheck level in 2 weeksmonit or for activityEE G to be scheduled through neuro Essential hypertension 15592625 I10 doxazosin 1 mg qdclonidin e 0.2 mg bidlisinop ril 10 mg qdmonitor bptitrate if elevating Schizoaffe ctive disorder, mixed type 200621383 F25.0 at baselineco ntinue supportive carepsych [place]tit[place] [id number] MARK Ramirez [facility] on [address] [place] [address] 09/21/2019 09:32:37 09/24/2019 10:57:41 Chronic pain syndrome 777972683 G89.4 will trial tramadol 25 mg 1 q 12 hrs prn paincontin ue tylenol prn and gabapentin 600 mg q 6 hrsmonitor for pain relief though would avoid increasing med 2/2 hx of polysubsta nce abuseif tramadol doesn't help then it should be discontinu ed Generalize d anxiety disorder 91062755 F41.1 will trial atarax 25 mg 1 q 6 hrs prn anxietyavo id benzos with hx of polysubsta nce abuse [id number] Kristi Hernandez [facility] on [address] [place] [address] 10/13/2019 13:34:08 10/20/2019 14:48:17 Diabetes mellitus 43039551 E11.9 Metformin 1000 mg BIDAdd lantus 8 units QHS Sliding scale insulin TIDMonitor blood glucoseRep eat HbA1c Olivia Essential hypertension 79122678 I10 BP well controlled Continue lisinopril 10 mg qd and doxazosin 1 mg qd. Monitor BP and labs. Hemiplegia and/or hemiparesis following stroke 9906718531 9107 I69.151 With right hemiparesi sCont PT/OT Seizure disorder 5542569 02 G40.89 eval by neurologyk eppra 500 mg bidf/u with neuro as scheduled Schizoaffe ctive disorder, mixed type 172068496 F25.0 at baselineco ntinue supportive carepsych [place] [id number] Kristi Hernandez [facility] on [address] [place] [address] 10/27/2019 13:10:01 10/29/2019 10:33:47 Diabetes mellitus 86985808 E11.9 Metformin 1000 mg BIDIncreas e lantus 16 units QHSSS insulin TIDMonitor blood sugars [id number] Kristi Hernandez [facility] on [address] [place] [address] 11/02/2019 11:10:12 11/03/2019 18:04:58 Seizure disorder 218918253 G40.89 Increase keppra 1000 mg bidKeppra level in 1 weekMonito r for activityf/ u with neuro as scheduled [id number] BIMAL NGUYEN [facility] on [address] [place] [address] 11/09/2019 14:26:42 11/17/2019 08:35:51 Tachycardia 1134933 R00.0 Z20.828 COVID 19 swab nowroom on precaution s [id number] MARK Ramirez [facility] on [address] [place] [address] 11/12/2019 15:25:48 11/17/2019 09:48:53 SARS-CoV-2 832393855 U07.1 monitor temp, sats q shiftmonit or for change in status, resp or gi distresssu pportive careO2 prn hypoxiaIV fluids if pt becomes dehydrated dc ibuprofen Liver enzy mes level above reference range 762648857 R74.8 dc tylenolCMP weekly on Mondaysdc metformin due to liver injury as belowconsi chelsea further med review if LFTs remain elevated Diabetes mellitus 860674 09 E11.9 dc metformin due to liver injury 2/2 COVID with elevated liver enzymescon tinue humalog sliding scalemonit or accuchecks TIDstart lantus 5 units q pm and adjust as needed [id number] Moraima Hanson MD [facility] on [address] [place] [address] 11/13/2019 13:17:23 11/17/2019 10:21:57 SARS-CoV-2 965792421 U07.1 Continue to monitor closely for hypoxia or fever. Also monitor po intake and use IV fluids if needed.O2 prn for hypoxia.No w with cough, but normal lung sounds. No CXR needed at this point. Liver enzy mes level above reference range 546015312 R74.8 Hepatotoxi c meds d/c'd yest. Had nl. LFTs when checked in 07/2019. Continue to monitor for worsening. Avoid hepatotoxi c meds as able. Cannot d/c keppra. Diabetes mellitus 124378 09 E11.9 Metformin d/c'd yest. Continue to monitor accuchecks TID and continue lantus 5 units qpm [id number] BIMAL [facility] on [address] [place] [address] 11/19/2019 15:14:46 11/26/2019 15:08:13 SARS-CoV-2 594336640 U07.1 Continue to monitor closely for hypoxia or fever. Also monitor po intake and use IV fluids if needed.O2 prn for hypoxia.No w with cough, but normal lung sounds. No CXR needed at this point. Liver enzy mes level above reference range 024811171 R74.8 will repeat next week to see if improved Diabetes mellitus 926823 09 E11.9 add back metformin 500 mg BID Continue to monitor accuchecks TID and continue lantus 5 units qpm, may need to increase as her sugars are poorly controlled and were not much better on the metformin alone [id number] BIMAL [facility] on [address] [place] [address] 11/23/2019 16:15:36 11/27/2019 08:47:48 SARS-CoV-2 537353875 U07.1 Continue to monitor closely for hypoxia or fever. Also monitor po intake and use IV fluids if needed.O2 prn for hypoxia.No w with cough, but normal lung sounds. No CXR needed at this point. Liver enzy mes level above reference range 858326656 R74.8 repeat LFTs tomorrow Diabetes mellitus 034775 09 E11.9 continue metformin 500 mg BID increase lantus to 7 units QHS monitor accuchecks QID [id number] BIMAL [employer] [facility] on [address] [place] [address] 11/24/2019 13:01:25 11/27/2019 09:25:49 SARS-CoV-2 011399543 U07.1 patient asymptomat ic,only dry cough likely on the end of illness monitor for symptom based resolution continue to monitor vitals Liver enzy mes level above reference range 145167106 R74.8 repeat LFTs tomorrow Diabetes mellitus 687758 E11.9 continue metformin 500 mg BID increase lantus to 7 units QHS monitor accuchecks QID [id number] [facility] [address] [place] [address] 11/25/2019 19:25:08 11/27/2019 10:23:44 SARS-CoV-2 115354336 U07.1 patient asymptomat ic,only dry cough likely on the end of illness monitor for symptom based resolution continue to monitor vitals may come off precaution s 12/07 Liver enzy mes level above reference range 868265198 R74.8 much improved 80/76consi chelsea increase metformin to 1000 mg BID Diabetes mellitus 872925 09 E11.9 continue metformin 500 mg BID- consider increase to 1000 mg BID increase lantus to 10 units QHS monitor accuchecks QID [id number] BIMAL [employer] [facility] on [address] [place] [address] 12/02/2019 11:51:27 12/08/2019 10:28:31 SARS-CoV-2 211881036 U07.1 Resolved and now off precaution s Liver enzy mes level above reference range 246470525 R74.8 much improved 80/76 Diabetes mellitus 856045 09 E11.9 Increase metformin to 1000 mg BID continue lantus to 10 units QHS monitor accuchecks QID- may increase lantus if needed [id number] Jose A Lassiter MD [facility] on [address] [place] [address] 12/10/2019 14:10:05 12/15/2019 09:57:22 SARS-CoV-2 708820056 U07.1 recent dxnow appears past acute phase in recovery towards baselinemo nitor for change in presentati on and secondary infection Schizoaffe ctive disorder, mixed type 629469279 F25.0 currently stable at baselineco ntinue supportive carepsych to followtitr ate meds prn Essential hypertension 77567837 I10 continue current meds monitor bptitrate as needed if not responding [id number] [facility] on [address] [place] [address] 01/01/2020 13:07:57 01/05/2020 09:45:19 Piercing of external ear 211447513 Z41.3 No signs of infection currentlyR eviewed proper care of piercing to avoid potential infectionA hampton that piercings will need to be removed if become infectedWi ll monitor [id number] Kristi Hernandez [facility] on [address] [place] [address] 02/03/2020 15:09:59 02/09/2020 14:21:38 Fall 2033047 R29.6 Ambulates with walker independen tlyPT eval Pain in ri ght hip joint 3477940889 24953 M25.551 Able to weight bear without painNo deformity of legDo not feel x-ray is needed at this timeWill monitor and if pain persists consider imaging [id number] MARK Ramirez [facility] on [address] [place] [address] 02/04/2020 15:33:22 02/09/2020 14:34:16 SARS-CoV-2 553294180 U07.1 recovered Schizoaffe ctive disorder, mixed type 335925280 F25.0 supportive careremero n 7.5 mg qhscymbalt a 30 mg bidbuspar 10 mg tidpsych prnadjust meds prn Essential hypertension 22902747 I10 bp elevated most of the timewill increase lisinopril to 20 mg qdclonidin e 0.2 mg biddoxazos in 1 mg qdmonitor bp daily and check CMP on 02/07adjust meds prn Diabetes mellitus 784014 09 E11.9 off metformin due to liver injury 2/2 COVID with elevated liver enzymesast /alt 78/75 on continue humalog sliding scalemonit or accuchecks TIDincreas e lantus to 15 units q pm and adjust as needed [id number] Kristi Hernandez [facility] [address] [place] [address] 02/05/2020 16:44:28 02/09/2020 14:23:45 Gastroesophageal reflux disease without esophagitis 138011486 K21.9 Add tums PRNIf sxs persist will add PPIMonitor Essential hypertension 74629573 I10 Lisinopril increased 20 mg daily 02/03 BP currently stable Monitor bp and adjust meds PRN [id number] MARK Ramirez [facility] on [address] [place] [address] 3 02/12/2020 13:40:20 02/16/2020 13:34:57 Chronic pain syndrome 613242730 G89.4 continue tramadol 25 mg 1 q 12 hrs prn paincontin ue tylenol prn and gabapentin 600 mg q 6 hrsmonitor for pain relief though would avoid increasing med 2/2 hx of polysubsta nce abusewill increase flexeril to 20 mg qhs and continue flexeril 10 mg bidmonitor for relief Insomnia 150190898 G47.0 9 continue trazodone 50 mg qhswill add trazodone 50 mg qhs prn insomniamo nitor for effect [id number] Kristi Hernandez [facility] on [address] [place] [address] 3 02/19/2020 13:55:41 02/24/2020 10:55:41 Dysuria 21978838 R30.0 Obtain UA, C&S nowEncoura ge fluids Monitor [id number] Kristi Hernandez [facility] on [address] [place] [address] 03/08/2020 10:49:53 03/15/2020 11:56:31 Hemiplegia and/or hemiparesis following stroke 5722080959 9107 I69.151 Increased neuropathi c painSuppor tive care Neuropathy 164880629 G62 .89 Increase gabapentin 900 mg TIDAlso has tramadol PRN Monitor for pain control [id number] Kristi Hernandez [facility] on [address] [place] [address] 3 03/18/2020 09:56:58 03/22/2020 10:02:41 Diabetes mellitus 99733831 E11.9 Metformin 1000 mg BIDIncreas e Lantus 25 units QHS continue humalog sliding scalemonit or accuchecks TID Liver enzy mes level above reference range 171483094 R74.8 Last checked 02/07Will repeat 03/21If remain elevated will check hepatitis panel [id number] Kristi Hernandez [facility] [facility] on [address] [place] [address] [id number] 3 03/21/2020 09:14:12 03/24/2020 11:17:51 Edema of lower extremity 601129610 R60.0 Mild edema of R legEncoura ge elevationC ompression stocking to R leg on AM, off HSMonitor [id number] Moraima Hanson MD [facility] on [address] [place] [address] [phone] 3 03/25/2020 16:08:10 03/30/2020 10:14:54 Diabetes mellitus 49452067 E11.9 With very elevated HgA1C in 10/2019, and with high daily accuchecks .Lantus just increased from 15U to 25U on 03/18 Continue Metformin 1000 mg BID and humalog sliding scaleMonit or accuchecks TID and recheck HgA1C on 03/29. Liver enzy mes level above reference range 847253414 R74.8 Almost WNL on 03/21Hepati tis panel neg.Likely fatty liver.Will recheck with next labs and consider GI consult if still elevated. Neuropathy 914611306 G62 .89 With continued pain into right leg and foot. Sounds deborah nerve pain, but pt. is concerned about possible nerve impingemen t or hip damage from previous fall when she had CVA. WIll get xrays to start, then PM&R consult. Alos ill increase gabapentin 900 mg BID and 1200 qhsContinu e tramadol 25 mg BID prn.Monito r for pain control Hemiplegia and/or hemiparesis following stroke [id number] 9107 I69.151 Increased neuropathi c pain as above. Continue Supportive care Chronic pain syndrome 37 2552362 G89.4 Meds as above, also cyclobenza lalo 20 mg qhs and 10 mg bidMonitor pain sxs. Insomnia 096774405 G47.0 9 Continue trazodone 50 mg qhs and repeat prn insomniaMo nitor sleep patterns. SARS-CoV-2 642043634 U07 .1 recovered Monitor for sequelae. Schizoaffe ctive disorder, mixed type 842757290 F25.0 Mood good.Muriel nue remeron 7.5 mg qhs, cymbalta 30 mg BID, buspar 10 mg TID and hydroxyzin e 25 mg q 6 hrs prn.Psych involved. Essential hypertension 17863135 I10 BP in good control.Co ntinue lisinopril 20 mg qd, clonidine 0.2 mg BID and doxazosin 1 mg qdMonitor BP and labs. Seizure disorder 5747425 02 G40.802 No recent seizure activity. Continue keppra 1000 mg BID. Monitor for seizure as activity. [id number] Kristi Hernandez [facility] on [address] [place] [address] [phone] 3 04/06/2020 12:13:46 04/08/2020 11:49:58 Diabetes mellitus 65774985 E11.9 Metformin 1000 mg BIDLantus 25 units QHSAdd Trulicity 0.75 mg Qweekly continue humalog sliding scalemonit or accuchecks TID [id number] Kristi Hernandez [facility] on [address] [place] [address] [phone] 3 04/08/2020 13:41:20 04/11/2020 16:13:48 Anxiety 12996086 F41.1 D/c buspar, remeron as feels these are ineffectiv eWill add clonazepam 0.5 mg QPMCont cymbalta and clonidineM onitor for effect Insomnia 979234280 G47.0 9 Add melatonin 5 mg QHSMonitor [id number] Cindy Mireles [facility] on [address] [place] [address] [phone] 3 05/12/2020 09:29:01 05/16/2020 15:19:23 Anxiety 34207831 F41.1 appears stable at this timecontin ue clonazepam 0.5 mg QPM- as started on 04/08Contin ues on cymbalta and clonidineM onitor for effect Diabetes mellitus 964472 09 E11.9 Metformin 1000 mg BIDLantus 25 units QHSTrulici ty 0.75 mg Qweekly humalog sliding scalemonit or accuchecks TID Neuropathy 435905592 G62 .89 With continued pain into right leg and foot. Pt has been worked up for this at her last routine visit, there was concern about nerve impingemen t or hip damage from a previous fall when she had the CVA. xray of the right hip on 03/26/2020 showing mild OA, no fracture. Will order palliative /chronic pain mgmt consult continue gabapentin 900 mg BID and 1200 qhs -as increased from 04/06Contin ues on tramadol 25 mg BIDMonitor for pain control Hemiplegia and/or hemiparesis following stroke 4423219551 9107 I69.151 with neuropathi c pain as above. Continue Supportive care Chronic pain syndrome 37 4983469 G89.4 tramadol 25mg bidgabapen tin 900mg bid and 1200qhscyc lobenzapri ne 20 mg qhs and 10 mg bidpt also on ropinerole 0.5mg qhs for restless legsMonito r pain sxs. Essential hypertension 94236782 I10 stablelisi nopril 20 mg qdclonidin e 0.2 mg BIDdoxazos in 1 mg qdMonitor BP and labs. Insomnia 560661048 G47.0 9 trazodone 50mg qhs monitor for effect [id number] Cindy Mireles [facility] on [address] [place] [address] 3 05/19/2020 11:54:46 05/23/2020 16:16:27 Neuropathy 282201222 G62.89 With continued pain into right leg and foot. Pt has been worked up for this at her last routine visit, there was concern about nerve impingemen t or hip damage from a previous fall when she had the CVA. xray of the right hip on 03/26/2020 showing mild OA, no fracture. ordered palliative /chronic pain mgmt consult but pt unable to be seen there for reasons unknown ?hx of non compliance /med abuse. continue gabapentin 900 mg BID and 1200 qhsContinu es on tramadol 25 mg BIDcontinu e to encourage weight loss interventi on as aboveMonit or for pain control Anxiety 55861134 F41.1 stable at this timeclonaz epam 0.5 mg QPM- as started on 04/08cymbal ta and clonidineM onitor for effect Chronic pain syndrome 37 6553988 G89.4 tramadol 25mg bidgabapen tin 900mg bid and 1200qhscyc lobenzapri ne 20 mg qhs and 10 mg bidropiner ole 0.5mg qhs for restless legsMonito r pain sxs. Diabetes mellitus 714793 09 E11.9 Metformin 1000 mg BIDLantus 25 units QHSTrulici ty 0.75 mg Qweekly humalog sliding scalemonit or accuchecks TID Essential hypertension 61948095 I10 stablelisi nopril 20 mg qdclonidin e 0.2 mg BIDdoxazos in 1 mg qdMonitor BP and labs. Morbid obesity 005909635 E66.01 discussion with pt today about weight being a factor in her chronic pain/neuro misty and would benefit greatly from weight loss- she plans to walk the hallways more.encou rage weight lossdietar y eval prn [id number] Kristi Mary [facility] on [address] [place] [address] [phone] 3 05/25/2020 14:00:25 05/27/2020 14:19:01 Diabetes mellitus 91631023 E11.9 HbA1c remains above goalIncrea se Trulicity 1.5 mg QweeklyCon tMetformin 1000 mg BIDLantus 25 units QHScontinu e humalog sliding scalemonit or accuchecks TID [id number] Linda Vazquez MD [facility] on [address] [place] [address] [phone] 3 07/13/2020 07:12:00 07/19/2020 15:35:48 Chronic pain syndrome 753146724 G89.4 cyclobenza lalo 20 mg at hs and 10 mg bidtramado l 25 mg q12h prnduloxet ine 30 mg bidgabapen tin 900 mg bid and 1200 mg at hswill monitor Diabetes mellitus 028336 09 E13.42 Trulicity 1.5 mg weekly SCLantus 25U at hs will monitor Essential hypertension 64402920 I10 doxazosin 1 mg dailycloni dine 0.2 mg bidlisinop ril 20 mg dailywill monitor SARS-CoV-2 324521813 U07 .1 diagnosed 11/11/19rec overed Mixed anxi ety and depressive disorder 530504864 F41.8 clonazepam 0.5 mg dailytrazo done 50 mg at hsduloxeti ne 30 mg bidhydroxy zine 25 mg q6h prnwill monitorMed Options prn Seizure disorder 6137315 02 G40.909 levetirace munoz 1000 mg bidwill monitor [id number] Kristi Hernandez [facility] on [address] [place] [address] [id number] 3 07/25/2020 13:05:51 07/29/2020 09:55:07 Hordeolum externum of upper eyelid of left eye 4878514018 74580 H00.014 With concern for possible cellulitis Start Keflex 500 mg PO, q 6 hrs for 7 days.Cultu relle BID for 10 days.D/C erythromyc in.Polytri m 1 gtt to left eye daily for 7 days.Warm compresses to eye TIDMonitor closely [id number] [facility] [address] [place] [address] [id number] 3 08/05/2020 11:06:21 08/08/2020 15:13:54 Insomnia 763466599 G47.09 Increase trazodone 75 mg QHSMonitor for effect [id number] Kristi [facility] on [address] [place] [address] [phone] 3 08/08/2020 12:03:49 08/10/2020 13:44:13 Diabetes mellitus 94563670 E11.9 Blood sugars appear improvedTr ulicity 1.5 mg Qweekly Metformin 1000 mg BID Lantus 25 units QHSHumalog sliding scale TIDmonitor accuchecks Repeat HbA1c in Feb Hemiplegia and/or hemiparesis following stroke 1294869846 9107 I69.151 Ambulates with walker Encouraged to increase physical activity as tolerated Supportive care Chronic pain syndrome 37 0059783 G89.4 Cymbalta 30 mg BIDMonitor for pain control Insomnia 723806748 G47.0 9 D/c trazodone as is ineffectiv eCurrently has klonopin scheduled in afternoon- will change to bedtimeMon itorConsid er d/c klonopin and start ambien if insomnia not improving Schizoaffe ctive disorder, mixed type 926291966 F25.0 Mood good.Muriel nue remeron 7.5 mg qhs, cymbalta 30 mg BID, buspar 10 mg TID and hydroxyzin e 25 mg q 6 hrs prn.Psych involved. Essential hypertension 36728605 I10 BP in good control.Co ntinue lisinopril 20 mg qd, clonidine 0.2 mg BID and doxazosin 1 mg qdMonitor BP and labs. Seizure disorder 9199114 02 G40.802 No recent seizure activity. Continue keppra 1000 mg BID. Monitor for seizure as activity. [id number] BIMAL NGUYEN [facility] on [address] [place] [address] [phone] 3 08/12/2020 12:30:44 08/15/2020 16:37:05 Hemiplegia and/or hemiparesis following stroke 3017235212 9107 I69.151 Ambulates with walker Encouraged to increase physical activity as tolerated Supportive care Chronic pain syndrome 37 8266510 G89.4 Cymbalta 30 mg BIDtramado l 25 mg BID PRNadd ibuprofen 600 mg qhs and BID PRNconside r increase in tramadol if not effectiveM onitor for pain control [id number] Kristi Hernandez [facility] on [address] [place] [address] [phone] 3 08/15/2020 14:44:34 08/17/2020 12:10:36 Broken tooth without complication 08169526 S02.5XXA Left bottom central incisor with significan t decay/appe ars brokenRequ est dental consultAdd orajel PRN for tooth painMonito r [id number] Kristi Hernandez [facility] on [address] [place] [address] [id number] 3 08/24/2020 09:43:08 08/26/2020 09:06:58 Essential hypertension 53379081 I10 BP often elevatedIn crease lisinopril 40 mg dailyCloni dine 0.2 mg BIDDoxazos in 1 mg qd Monitor BP and labs. Insomnia 061813137 G47.0 9 Will add ambien 5 mg QHS prnMonitor for effect [id number] Kristi Hernandez [facility] on [address] [place] [address] [phone] 3 08/31/2020 14:38:05 09/01/2020 16:21:10 Asthma 066656878 J45.40 Albuterol inhaler PRNAdd Flovent HFA BIDMonitor resp status [id number] Kristi Hernandez [facility] on [address] [place] [address] [phone] 3 09/09/2020 13:14:26 09/12/2020 13:28:51 Diabetes mellitus 92600291 E11.9 Blood sugars now elevated, HbA1c improved but not yet at goalGoal HbA1c <8.0Increa se Lantus 35 units QHSContTru licity 1.5 mg Qweekly Metformin 1000 mg BID Humalog sliding scale TID monitor accuchecks Repeat HbA1c as ordered Hemiplegia and/or hemiparesis following stroke 8688059495 9107 I69.151 Ambulates with walker Encouraged to increase physical activity as tolerated Supportive care Chronic pain syndrome 37 5652696 G89.4 Cymbalta 30 mg BIDMonitor for pain control Schizoaffe ctive disorder, mixed type 573215092 F25.0 Mood good.Muriel nue remeron 7.5 mg qhs, cymbalta 30 mg BID, buspar 10 mg TID and hydroxyzin e 25 mg q 6 hrs prn.Psych involved. Essential hypertension 31706805 I10 BP in good control.Co ntinue lisinopril 20 mg qd, clonidine 0.2 mg BID and doxazosin 1 mg qdMonitor BP and labs. Seizure disorder 3419542 02 G40.802 No recent seizure activity. Continue keppra 1000 mg BID. Monitor for seizure as activity. Bacterial vaginosis 4197 44039 N76.0 Treat with MetroGel 0.75% QHS x 5 daysMonito r to resolution Refer to DIRECTOR RADIO NEWS as patient likely needs routine gynecologi arina care/PAP smear [id number] Kristi Hernandez [facility] on [address] [place] [address] 3 09/20/2020 09:42:48 09/21/2020 16:25:13 Cough 86269351 R05 Add Mucinex 400 mg BID x 5 daysEncour age fluidsMoni tor and if worsening or other sxs develop consider CXR [id number] Moraima Hanson MD [facility] on [address] [place] [address] 3 10/28/2020 19:36:53 11/08/2020 14:55:28 Diabetes mellitus 38131947 E11.9 HgA1C much improved since starting trulicity in 05/2020, but still >8.0, So Lantus increased on 09/10/20. Continue Lantus 35 units QHS,, Trulicity 1.5 mg weekly, metformin 1000 mg BID and SSI. Monitor accuchecks TID and HgA1C q 3 months. Hemiplegia and/or hemiparesis following stroke 9016780956 9107 I69.151 Mostly in wheelchair . Continue to encourage increased physical activity as tolerated Supportive care Chronic pain syndrome 37 2296364 G89.4 As above. Schizoaffe ctive disorder, mixed type 902441604 F25.0 Mood good. Continue meds as above. Psych involved. Essential hypertension 14911812 I10 BP in good control. Continue lisinopril 40 mg qd, clonidine 0.2 mg BID and doxazosin 1 mg qd Monitor BP and labs. Seizure disorder 2993214 02 G40.802 No recent seizure activity. Continue keppra 1000 mg BID. Monitor for seizure as activity. Neuropathy 454399391 G62 .89 C/O continued pain into right leg and foot. Will increase gabapentin from 900 mg BID and 1200 qhs to 1200 mg TID. Monitor for sx relief or oversedati on. Continue tramadol 25 mg BID prn and duloxetine 30 mg BID Monitor for pain control Liver enzy mes level above reference range 332994010 R74.8 Almost WNL on 03/21 Hepatitis panel neg. Likely fatty liver. Not rechecked since 02/2020 Will recheck on 10/31 and consider GI consult if still elevated. Insomnia 185120254 G47.0 9 Continue melatonin 5 mg qhs and ambien 5 mg qhs. Monitor sleep patterns. SARS-CoV-2 321010556 U07 .1 recovered Monitor for sequelae. Restless legs 60202804 G 25.81 Continue ropinirole 0.5 mg qhs. [id number] Kristi Hernandez [facility] on [address] [place] [address] [phone] 3 11/07/2020 12:49:40 11/09/2020 09:05:40 Gastroesophageal reflux disease without esophagitis 098852802 K21.9 Add Prilosec 20 mg daily D/c ibuprofen as this can exacerbate sxs Tums PRN Monitor sxs Essential hypertension 41224960 I10 BP elevated above goal Lisinopril 40 mg daily Increase Doxazosin 2 mg daily Clonidine 0.2 mg BID Monitor [id number] Kristi Hernandez [facility] on [address] [place] [address] [phone] 3 11/16/2020 11:27:49 11/18/2020 11:03:47 Allergic rhinitis 24956084 J30.9 Add Claritin 10 mg daily x 4 weeks Monitor for effect Seasonal a llergic conjunctivitis 134693478 H10.13 Add Zaditor gtts BID x 4 weeks Monitor [id number] Kristi Hernandez [facility] on [address] [place] [address] [phone] 3 12/01/2020 15:53:59 12/06/2020 09:44:26 Generalized anxiety disorder 53595472 F41.1 Duloxetine 30 mg BID Klonopin 0.5 mg QHS Request psych eval [id number] CALEB PERKINS NP [facility] on [address] [place] [address] 03539-582 3 12/27/2020 14:35:54 12/30/2020 13:11:57 Hemiplegia and/or hemiparesis following stroke 6855478706 9107 I69.359 mostly in wheelchair encourage increased physical activity Seizure disorder 7714921 02 G40.909 keppra 1000mg bid Schizoaffe ctive disorder, mixed type 395302412 F25.0 mood stable continue to monitor and chart any changes in mood or behaviors psych prn Restless legs 16948055 G 25.81 ropinole 0.5 mg daily mag ox 400 mg daily Neuropathy 232799200 G62 .9 gabapentin 1200 mg tid Insomnia 484612864 G47.0 0 ambien 5mg daily Generalize d anxiety disorder 99867600 F41.1 klonopin 0.5 mg daily cymbalta 30 mg bid Essential hypertension 86467952 I10 clonidine 0.2 mg bid lisinopril 40 mg daily doxazosin 2 mg daily monitor bp Diabetes mellitus 378484 09 E11.9 trulicity 1.5 mg daily metformin 1000mg bid monitor glucose Chronic pain syndrome 37 8735694 G89.4 tramadol 25 mg q12hr prn gabapentin 1200 mg tid cyclobenza lalo 10 mg bid, 20 mg hs Asthma 414030221 J45.90 9 flovent bid [id number] BIMAL NGUYEN [facility] on [address] [place] [address] 87788-115 3 02/02/2021 14:57:56 02/07/2021 15:57:17 Impacted cerumen in left ear 0894971633 880661 H61.22 add debrox 5 gtts qhs and flush with warm NS on 6th daymonitor for relief [id number] Kristi Hernandez [facility] on [address] [place] [address] [phone] 3 02/15/2021 10:06:45 02/17/2021 15:34:14 Acute otitis externa 84575865 H60.591 Cipro HC Otic 3 gtts to R ear BID x 7 daysAdvise d patient to avoid inserting any foreign objects into ear including Q-tipsMoni tor to resolution [id number] EM NAIR PA-C [facility] on [address] [place] [address] 29002-312 3 02/16/2021 20:59:13 02/21/2021 03:48:12 Peripheral neuropathy due to type 2 diabetes mellitus 6470977089 107 E11.42 No renal impairment or hyperkalem ia on NATALI-Amirah changes neededCons ider reduction in frequency of lab monitoring [id number] Linda Vazquez MD [facility] on [address] [place] [address] 99442-194 3 02/20/2021 06:49:32 02/22/2021 11:44:42 Asthma 425515403 J45.30 flovent 44: 2 puffs bidwill monitor Chronic pain syndrome 37 5216473 G89.4 tramadol 25 mg q12h prnduloxet ine 30 mg bid and 60 mg at hsgabapent in 1200 mg tidibuprof en 400 mg q12h prncyclobe nzaprine 10 mg bid and 20 mg at hswill monitor Diabetes mellitus 389834 09 E13.42 Trulicity 1.5 mg weekly SCLantus 35U at hsmetformi n 1000 mg bidwill monitor Essential hypertension 47615132 I10 doxazosin 1 mg dailycloni dine 0.2 mg bidlisinop ril 20 mg dailywill monitor SARS-CoV-2 366597559 U07 .1 diagnosed 11/11/19rec overedwill continue to monitor Seizure disorder 4940713 02 G40.909 levetirace munoz 1000 mg bidwill monitor Mixed anxi ety and depressive disorder 211365611 F41.8 clonazepam 0.5 mg daily at hsduloxeti ne 30 mg bid and 60 mg at hsgabapent in 1200 mg tidclonidi ne 0.2 mg bidwill monitorpsy ch prn Primary insomnia 5400212 F51.01 zolpidem 5 mg at hs prnwill monitor Restless legs 90405046 G 25.81 ropinirole 0.5 mg at hswill monitor [id number] Kristi Ames [facility] on [address] [place] [address] [phone] 3 02/21/2021 13:57:17 02/24/2021 13:55:38 Diabetes mellitus 62592930 E13.42 HbA1c improved but not yet at goalGoal HbA1c <8.0Add Lantus 8 units QAM, cont 35 units QHSAdjust Humalog sliding scale, coverage to start at BS 150 (currently starts at BS 200)Trulic ity 1.5 mg QweeklyMet formin 1000 mg BIDmonitor accuchecks Repeat HbA1c as ordered [id number] Kristi Hernandez 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 on [address] [place] [address] 40990-451 3 02/28/2021 10:01:05 03/07/2021 16:10:20 Insomnia 073055859 G47.09 Increase ambien 10 mg QHSWill change admin time of Clonazepam to 2 PM to reduce risk of interactio n with AmbienMoni tor for effect [id number] Shaylee Lowry [employer] [facility] on [address] [place] [address] 24089-105 3 03/13/2021 11:17:03 03/15/2021 14:31:48 Right sided chest pain 632568907 R07.89 doesn't appear have an infectionp ain only when sitting up and pt is morbidly obese with abd rollsarea of concern slightly edematousw ill have staff monitoradd lidocaine gel apply qd to abd roll prn pain [id number] Kristi Hernandez [facility] on [address] [place] [address] [id number] 3 04/10/2021 15:36:41 04/12/2021 11:23:43 Acute otitis externa 63085012 H60.591 CiproDex otic 4 gtts to L ear BID x 7 daysAdvise d patient to avoid inserting any foreign objects into ear including Q-tipsMoni tor to resolution [id number] BIMAL NGUYEN [facility] on [address] [place] [address] 84643-837 3 04/21/2021 12:12:19 04/25/2021 09:47:12 Acute otitis externa 99526212 H60.591 repeat CiproDex otic 4 gtts to L ear BID x 7 daysAdvise d patient to avoid inserting any foreign objects into ear including Q-tipsfind otoscope to reassess Insomnia 256481575 G47.0 9 continue ambien 10 mg QHSClonaze guicho 2 PMMonitor for effect Morbid obesity 608874504 E66.01 monitor weightsmea l replacemen t shake one meal a day Diabetes mellitus 845130 09 E13.42 HbA1c improved but not yet at goalGoal HbA1c <8.0increa se Lantus to 10 units QAM, cont 35 units QHSHumalog sliding scale, coverage to start at BS 150 (currently starts at BS 200)Trulic ity 1.5 mg QweeklyMet formin 1000 mg BIDmonitor accuchecks Repeat HbA1c as ordered Asthma 952866289 J45.30 flovent 44: 2 puffs bidwill monitor Chronic pain syndrome 37 9130126 G89.4 tramadol 25 mg q12h prnduloxet ine 30 mg bid and 60 mg at hsgabapent in 1200 mg tidibuprof en 400 mg q12h prncyclobe nzaprine 10 mg bid and 20 mg at hswill monitor Essential hypertension 89386594 I10 doxazosin 1 mg dailycloni dine 0.2 mg bidlisinop ril 20 mg dailywill monitor SARS-CoV-2 686408118 U07 .1 diagnosed 11/11/19rec overedwill continue to monitor Seizure disorder 7503870 02 G40.909 levetirace munoz 1000 mg bidwill monitor levels Mixed anxi ety and depressive disorder 553630017 F41.8 clonazepam 0.5 mg daily at hsduloxeti ne 30 mg bid and 60 mg at hsgabapent in 1200 mg tidclonidi ne 0.2 mg bidwill monitorpsy ch prn Primary insomnia 6473177 F51.01 zolpidem 5 mg at hs prnwill monitor Restless legs 54823998 G 25.81 ropinirole 0.5 mg at hswill monitor [id number] EM NAIR PA-C [facility] on [address] [place] [address] [phone] 3 04/26/2021 11:34:17 04/28/2021 11:23:08 Peripheral neuropathy due to type 2 diabetes mellitus 6222374810 107 E11.42 Lantus 10 ux SQ q am and 35 ux SQ qhsTrulici ty 1.5 mg SQ q SaturdayMetf ormin 1 g po bidCorrect ional HumalogOn NATALI-I for renal protection Gastroesop hageal reflux disease without esophagitis 788676662 K21.9 Prilosec 20 mg po q am Restless legs 44876195 G 25.81 Requip 0.5 mg po qhs Health Concerns Section Related Observation LastModified by Organization Detai ls LastModified Time None Recorded Concern Status LastModified by Organization Details LastModified Time None Recorded Advance Directives Directive Y: Full code Payers Encounter Date Sequence Insurance Name Policy Number Policy Salguero Covered Member ID Salguero Member ID Guarantor Name 02/28/2021 1 [place] Yesika Farr [id number] Yesika Farr 03/13/2021 1 [place]ika Farr [id number] Yesika Farr 04/10/2021 1 [place]ika Farr [id number] Yesika Farr 04/21/2021 1 [place] Yesika Farr [id number] Yesika Farr 04/26/2021 1 [place] Yesika Farr [id number] Yesika Farr Notes Date Note Type Note Provider Name and Address Organization Details Recorded Time 02/28/2021 text/html 45 yo female LTC resident seen for acute rounding. Patient reports difficulty sleeping despite receiving Ambien at bedtime. Also receives scheduled Clonazepam in evening currently. Kristi chvaez [employer] 02/28/2021 10:06:20 03/13/2021 text/html pt seen today fo r acute rounding. pt is c/o pain on her left abd roll under her left breast. has no pain in left breast. pt says it doesn't bother her at all when she is lying down in bed. just when she is sitting up. otherwise no concerns per nursing. Shaylee Lowry, [employer] [address], [address], [place], [address], [employer] 03/13/2021 11:29:20 04/10/2021 text/html 45 yo female LTC resident seen for acute rounding. Patient c/o pain of L ear. Reports recently cleaning ear with Q-tip. Kristi chavez [employer] 04/10/2021 15:47:15 04/21/2021 text/html This 45 year old female senior living care resident is seen today for routine rounding visit. Her stay has been recently complicated by otitis externa for which she had a week of abx drops. She tells me today the ear feels better but the pain is still there, will extend course of drops. There is no scope on unit so cannot assess canal, if no improvement in the next few days will reassess. Her blood sugars still elevated above goal ranging in the mid 200s. She is currently on lantus 8 units in AM and 35 at night. Medical history is remarkable for schizoaffective disorder, seizure disorder, history of CVA with right hemiplegia, DM, anxiety, chronic pain, hypertension, peripheral neuropathy Patient is in the day room eating lunch, other than her ear hurting she denies any other issues. Of note, patient tested positive for COVID 11/11/19. She had a mild course and recovered. MOLST: full code BIMAL NGUYEN [address], [address], [place], [address], [facility] - [facility] 04/21/2021 12:29:56 04/26/2021 text/html Pt seen today fo r discharge. Admit Date: 07/14/19 Discharge/Service Date: 04/26/21 Principle Discharge Diagnosis: Hx CVA with R hemiparesis Secondary Discharge Diagnoses: HTN; Hx cocaine use d/o; Schizoaffective D/O, mixed type; Chronic pain syndrome; Insomnia; Hx EtOH use d/o; DM2 with neuropathy; Seizure D/O; Anxiety; Hx tachycardia; Hx acute COVID-19 infection 10/2019; Hx transaminitis; Hx falls; GERD; BLE edema; Morbid obesity; Hx L upper lid hordeolum; Mild-intermittent asthma; Hx tooth fracture; Hx bacterial vaginosis; RLS; Allergic rhinigis; Allergic conjunctivitis; Hx L cerumen impaction; Hx recurrent acute otitis externa; Hypomagnesemia; [facility] Patient Received From: [facility] Attending MD: Dr. Jose A Lassiter Discharge Medication List:Ambien 10 mg po qhsFlexeril 10 mg po q 0800 and 1400 and 20 mg po qhsCymbalta 30 mg po q am and 90 mg po qhsDoxazosin 2 mg po qhsFolic acid 1 mg po q amKlonopin 0.5 mg po q 1400Lantus 10 ux SQ q am and 35 ux SQ qhs-am dose increased from 8 ux on 04/21/21Lisinopril 40 mg po q amMelatonin 10 mg po qhsMiraLax 17 g po q amMVI with minerals 1 po q amPrilosec 20 mg po q amRequip 0.5 mg po qhsTrulicity 1.5 mg SQ q SaturdayThiamine 100 mg po q amCiprodex 4 gtt L ear bid until 04/28/21Clonidine 0.2 mg po bidFlovent HFA 44 mcg 2 puffs bidKeppra 1 g po bidMag Oxide 400 mg po bidMetformin 1 g po bidGabapentin 1200 mg po bidCorrectional HumalogArtificial tears prnAspercreme patch prn back painMotrin 400 mg po bid prn painProAir prnSimethicone prnTUMS prn(Ultram prn -- d/c'd upon d/c due to non-use) PCP Head? s Up: on multiple meds, many likely unnecessary at this point, so could probably reassess and reduce Post-Acute Summary: Admitted for subacute rehab. Transitioned to LTC. Sugars monitored and diabetes meds adjusted. Participated and progressed in PT/OT/CLINICAL SERVICES PROFESSIONAL (see their discharge summary for details.) Acute issues managed. Discharging today under MFA waiver program to her own apartment. Home Health Certification: Dx as above; Seen this am by [employer]-registered Em Nair PA-C NPI# [id number]; Last MD visit 02/20/21; [facility]DC for medication management and reconciliation and teaching, including diabetes management; PT: home exercise program for gait training and increasing muscle strength and needs home environment assessment to determine need for assistive devices; OT for increased independence with ADLs; Home-bound due to needs assistance to navigate uneven sidewalks and curbs and needs assist with propelling wheelchair Tests/Labs Needing to be Ordered or Followed by PCP: per PCP discretion Services Ordered at Discharge: [facility] Diet: allergic to tomato; carb controlled; regular texture; thin liquids Activity: w/c and 2 wheeled walker as tolerated Pt says, I'm movin' on up (sung like the Florian's theme song.) No complaints. Very excited to be going to her own apartment. Nurse reports pt has been demonstrating competent management of her diabetes/insulin. EM NAIR PA-C [address], [address], [place], [address], [employer] [facility] [email or web address] 04/26/2021 22:00:55 OBGyn Episode No OBEpisode recorded.
--- OUTSIDE RECORDS SUMMARY | 2024-08-18 23:33 | XMS_ITS | Encounter Summary ---
Author Organization [facility] Address [address] [place] [address] Care Team Providers Care Advanced Nursing Professor Name Role Phone Cathy Gerber MICHAEL Primary Care Provider Reason for Visit * Reason Comments Med Refill Encounter Details Date Type Department Care Team ([facility] st Contact Info) Description 07/08/2024 Refill [facility] [address] [place] [address] Sudhakar Bustillos, IRWIN [address] [place] [address] Social History Tobacco Use Types Packs/Day Years [...] encounter Miscellaneous Notes * Telephone Encounter - Sudhakar Bustillos DMD - 07/08/2024 11:22 AM EST Approving, but needs appt for additional refills. documented in this encounter Plan of Treatment Not on file documented as of this encounter Visit Diagnoses Not on filedocumented in this encounter Additional Health Concerns Assessment Noted Time PHQ-9 Depression Total Score: 0 09/12/19 24 10:17 AM EST documented as of this encounter Care Teams Advanced Nursing Professor Relationship Specialty Start Date End Date Cathy Gerber ANP [address] [place] [phone] PCP - General Family Medicine 06/28/22 documented as of this encounter
--- OUTSIDE RECORDS SUMMARY | 2024-08-18 23:33 | XMS_ITS | Encounter Summary ---
Author Organization [employer] Address [address] [place] [address] Care Team Providers Care Veneer Patcher Name Role Phone Cathy Gerber Primary Care Provider [phone] Reason for Visit * Reason Comments Med Refill Encounter Details Date Type Department Care Team ([facility] st Contact Info) Description 09/19/2023 Refill [facility] [address] [place], [place] [phone] Cathy Gerber ANP [address] [place] [address] Seizure disorder (CMS/HCC) Social History Tobacco Use [...] of intractable epilepsy documented in this encounter Additional Health Concerns Assessment Noted Time PHQ-9 Depression Total Score: 0 09/12/19 24 10:17 AM EST documented as of this encounter Care Teams Veneer Patcher Relationship Specialty Start Date End Date Cathy Gerber ANP [address] [place] [phone] PCP - General Family Medicine 06/28/22 documented as of this encounter
--- NOTE | 2024-08-18 23:53 | ED.URI ---
HPI - URI/Sore Throat General Chief Complaint: Upper Respiratory Symptoms Stated Complaint: COVID +, MULTIPLE SEIZURES Time Seen by Provider: 08/18/24 23:40 Source: patient Mode of arrival: ambulatory Limitations: no limitations History of Present Illness ED Provider: HPI Narrative: Patient 48 years old with history of diabetes epilepsy hypertension morbid obesity anxiety and depression and asthma been coughing for last 3 days with body aches cough is mostly dry feels short of breath saturating 99% at room air also patient had seizures to yesterday and 3 today lasted only for few seconds unwitnessed patient felt the aura and then she woke up no fall no tongue bite usually she gets seizure once or twice a week recently dose of Keppra increased to 1500 twice a day which she has not missed no head injury or fall patient has not seen a urologist for a while Related Data Home Medications ?Medication ?Instructions ?Recorded ?Confirmed blood sugar diagnostic (FreeStyle #10 ea 11/01/21 04/17/22 Lite Strips) blood-glucose meter (FreeStyle #1 ea 11/01/21 04/17/22 [place] Lite kit) clonidine HCl 0.2 mg tablet 0.2 mg PO BID 11/01/21 10/22/23 duloxetine 30 mg capsule,delayed 30 mg PO DAILY 11/01/21 10/22/23 release folic acid 1 mg tablet 1 mg PO DAILY 11/01/21 10/22/23 lisinopril 40 mg tablet 40 mg PO DAILY 11/01/21 10/22/23 magnesium oxide 400 mg (241.3 mg 400 mg PO BID 11/01/21 10/22/23 magnesium) tablet metformin 1,000 mg tablet 1,000 mg PO BIDWM 11/01/21 10/22/23 omeprazole 20 mg capsule,delayed 20 mg PO DAILY@0630 11/01/21 10/22/23 release pen needle, diabetic 31 gauge x #50 ea 11/01/21 04/17/2210/04 (Sure Comfort Pen Needle) thiamine HCl (vitamin B1) 100 mg 100 mg PO DAILY 11/01/21 10/22/23 tablet cyclobenzaprine 10 mg tablet 1 tab PO BID PRN muscle spasm 04/02/22 10/22/23 insulin lispro 100 unit/mL See Protocol subcut TIDAC 04/02/22 10/22/23 subcutaneous pen albuterol sulfate 90 mcg/actuation 2 puff inhalation Q6H PRN wheezing 07/31/23 10/22/23 aerosol inhaler (Ventolin HFA) hydroxyzine HCl 25 mg tablet 25 mg PO BID PRN Anxiety 07/31/23 10/22/23 mirtazapine 7.5 mg tablet 7.5 mg PO BEDTIME PRN Insomnia 07/31/23 10/22/23 pregabalin 50 mg capsule 50 mg PO TID 07/31/23 10/22/23 doxepin 25 mg capsule 25 mg PO BEDTIME 10/22/23 10/22/23 dulaglutide 3 mg/0.5 mL 3 mg subcut TU 10/22/23 10/22/23 subcutaneous pen injector (Trulicity) duloxetine 60 mg capsule,delayed 60 mg PO DAILY 10/22/23 10/22/23 release escitalopram oxalate 5 mg/5 mL 20 mg PO QAM 10/22/23 10/22/23 oral solution insulin glargine 100 unit/mL (3 10 unit subcut BID 10/22/23 10/22/23 mL) subcutaneous pen melatonin 10 mg capsule 10 mg PO BEDTIME insomnia 10/22/23 10/22/23 Previous Rx's ?Medication ?Instructions ?Recorded aspirin 81 mg chewable tablet 81 mg PO DAILY #90 tabs 08/01/23 atorvastatin 40 mg tablet 40 mg PO BEDTIME #90 tabs 08/01/23 levetiracetam 1,000 mg tablet 1,500 mg (1.5 x 1,000 mg) PO 10/24/23 BID@0900,1700 #120 tabs morphine 15 mg immediate release 15 mg PO Q6H PRN pain #10 tabs 12/04/23 tablet ondansetron HCl 4 mg tablet 4 mg PO Q8H PRN nausea and 04/13/24 vomiting #14 tabs amoxicillin 875 mg-potassium 1 tab PO Q12H 5 days #10 tabs 04/14/24 clavulanate 125 mg tablet azithromycin 500 mg tablet See Rx Instructions PO .COMPLEX #6 04/14/24 tabs codeine 10 mg-guaifenesin 100 mg/5 10 ml PO Q6H PRN cough #237 mL 08/18/ mL oral liquid prednisone 20 mg tablet 40 mg (2 x 20 mg) PO DAILY #10 tabs 08/18/24 Allergies Allergy/AdvReac Type Severity Reaction Status Date / Time tomato [TOMATO] Allergy Unknown RASH Verified 08/18/24 22:32 Review of Systems Review of Systems: Yes all other systems are reviewed and are negative [facility] Past Medical History Medical History Transaminitis Cholecystitis, acute with cholelithiasis UTI (urinary tract infection) Asthma Restless leg syndrome Stroke GERD (gastroesophageal reflux disease) Anxiety Depression Insomnia Neuropathy Seizure Hypertension Insulin dependent type 2 diabetes mellitus Morbid obesity Hx of completed stroke Surgical History History of laparoscopic cholecystectomy (04/05/22) History of Family History Family History Mother Diabetes Father Diabetes Alcoholism Social History Social History Household Members: None Housing: Apartment Do you presently have visiting nurse or other home services: Yes (collar tacker, vna) Alcohol intake: never Patient Tobacco Use Status: Former Tobacco user Tobacco use type: Cigarette Cigarette Packs Per Day: 2 Cigarettes Per Day: 40.0 Years Smoked: 14 Smoked in Last 30 Days: No Use of substances other than those prescribed or required for medical reasons: No Substance Use Type: Marijuana Advance Directives: Yes Advance Directives on File: Yes Advance Directives Date on File: 04/02/22 Do you have a plan to hurt others: No Plan Patient : No service: No Current occupational status: unemployed Physical Exam Vital Signs: Vital Signs: Last Vital Signs Temp 97.9 F 08/18/24 22:35 Pulse 76 08/18/24 22:35 Resp 18 08/18/24 22:35 BP 135/43 L 08/18/24 22:35 Pulse Ox 100 08/18/24 22:36 O2 Del Method Room Air 08/18/24 22:36 BMI result Body Mass Index 39.4 Appearance: Alert. Oriented X3. No acute distress. Eyes: PERRLA, No Nystagmus ENT: Pharynx normal. Oral Mucosa moist no tongue bite Neck: Normal inspection. Neck supple. CVS: Normal heart rate and rhythm. Pulses normal. Respiratory: No respiratory distress. Equal air entry bilateral, prolonged expiration with frequent dry cough Abdomen: Soft and nontender. Bowel sounds are present, no mass palpable, no CVA tenderness Skin: Skin warm and dry. Normal skin color. Normal skin turgor. Extremities: No lower extremity edema. No calf tenderness Neuro: Oriented X 3. No motor deficit. 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 Labs: Lab Results 08/18/24 Range/Units 22:39 Influenza Type A (PCR) NEGATIVE (Negative) Influenza Type B (PCR) NEGATIVE (Negative) RSV RNA Qual (PCR) NEGATIVE (Negative) SARS-CoV-2 RNA (RT-PCR) POSITIVE A (Negative) Radiology Impression Discussion of test interpretation with radiology: I have reviewed the radiologist's reading. Radiologist Impression: No infiltrate Discharge Plan Discharge Clinical Impression: COVID-19, Seizure Patient Disposition: Home, Self-Care Instructions: Recurrent Seizures in Adults (ED), COVID-19 (Coronavirus Disease 2019) (ED) Additional Instructions: Drink plenty of fluids Continue to use your albuterol inhaler 2 puffs every 4-6 hours as needed Prednisone and cough syrup as prescribed Your blood sugar may go high with prednisone increase the dose of insulin as advised for elevated blood sugar Continue Keppra and follow with neurologist Prescriptions: New prednisone 20 mg tablet 40 mg PO DAILY Qty: 10 0RF codeine-guaifenesin 10-100 mg/5 mL liquid 10 ml PO Q6H PRN (Reason: cough) Qty: 237 0RF No Action cyclobenzaprine 10 mg tablet 1 tab PO BID PRN (Reason: muscle spasm) insulin lispro 100 unit/mL insulin pen See Protocol subcut TIDAC Protocol: Insulin Correction Scale Less than or equal to 110 ---- Give (units): 0 111 to 150 Give (units): 0 151 to 200 Give (units): 2 201 to 250 Give (units): 4 251 to 300 Give (units): 6 301 to 350 Give (units): 8 Greater than 350 Give (units): 10 Call MD if Blood Glucose > : 350 hydroxyzine HCl 25 mg tablet 25 mg PO BID PRN (Reason: Anxiety) albuterol sulfate [Ventolin HFA] 90 mcg/actuation HFA aerosol inhaler 2 puff INHALATION Q6H PRN (Reason: wheezing) mirtazapine 7.5 mg tablet 7.5 mg PO BEDTIME PRN (Reason: Insomnia) pregabalin 50 mg capsule 50 mg PO TID atorvastatin 40 mg Tablet 40 mg PO BEDTIME Qty: 90 0RF aspirin 81 mg Tablet,Chewable 81 mg PO DAILY Qty: 90 0RF doxepin 25 mg capsule 25 mg PO BEDTIME escitalopram oxalate 5 mg/5 mL solution 20 mg PO QAM duloxetine 60 mg capsule,delayed release(DR/EC) 60 mg PO DAILY Trulicity 3 mg/0.5 mL pen injector 3 mg subcut TU insulin glargine 100 unit/mL (3 mL) insulin pen 10 unit SUBCUT BID melatonin 10 mg capsule 10 mg PO BEDTIME levetiracetam 1,000 mg tablet 1,500 mg PO BID@0900,1700 Qty: 120 0RF morphine 15 mg tablet 15 mg PO Q6H PRN (Reason: pain) Qty: 10 0RF Rx Instructions: partial fill okay; Partial Fill upon patient request. ondansetron HCl 4 mg tablet 4 mg PO Q8H PRN (Reason: nausea and vomiting) Qty: 14 0RF amoxicillin-pot clavulanate 875-125 mg tablet 1 tab PO Q12H 5 Days Qty: 10 0RF azithromycin 500 mg tablet See Rx Instructions .ROUTE .COMPLEX Qty: 6 0RF Rx Instructions: For 250 mg dose pack: take 500 mg today (day 1), then 250 mg for 4 days (days 2-5) omeprazole 20 mg capsule,delayed release(DR/EC) 20 mg PO DAILY@0630 (DME) blood-glucose meter [FreeStyle [place] Lite] Kit See Rx Instructions Not Applicable DAILY Qty: 1 Rx Instructions: As directed thiamine HCl (vitamin B1) 100 mg tablet 100 mg PO DAILY (DME) FreeStyle Lite Strips Strip See Rx Instructions Not Applicable TID Qty: 10 Rx Instructions: As directed duloxetine 30 mg capsule,delayed release(DR/EC) 30 mg PO DAILY magnesium oxide 400 mg (241.3 mg magnesium) tablet 400 mg PO BID folic acid 1 mg tablet 1 mg PO DAILY clonidine HCl 0.2 mg tablet 0.2 mg PO BID lisinopril 40 mg tablet 40 mg PO DAILY metformin 1,000 mg tablet 1,000 mg PO BIDWM (DME) pen needle, diabetic [Sure Comfort Pen Needle] 31 gauge x 3/16 needle See Rx Instructions .ROUTE BID Qty: 50 Rx Instructions: As directed Referrals: Ramiro Danielle MD [Physician] - 3 days Print Language: Monegasque
[2024-08-19 00:15] VITALS: BP 149/100; PULSE 77; RESP 16; TEMP 36.8
[2024-08-19] MEDS: levETIRAcetam 500 MG TABLET 1500 MG PO (00:18)
[2024-08-19] MEDS: guaiFEN/Codeine SF 200/20/10ML 10 ML LIQUID PO (00:18)
[2024-08-19] MEDS: predniSONE 20 MG TABLET 60 MG PO (00:18)
[2024-08-19 00:20] VITALS: BP 149/100; PULSE 77; RESP 16; TEMP 36.8
== END 2024-08-19 01:29 | disposition home or self-care (01) ==
PROVIDERS: Emergency Provider Internal Medicine
DX: U07.1 COVID-19 (principal); R06.02 Shortness of breath; G40.909 Epilepsy, unspecified, not intractable, without status epilepticus; Z87.891 Personal history of nicotine dependence; Z79.899 Other long term (current) drug therapy
CPT/HCPCS: 0241U; 71045; 99283; 99284

== ENCOUNTER → 2024-08-18 22:40 | Outpatient (BNV) | payer MEDICAID, SELFPAY | PROVIDERS: Emergency Provider Internal Medicine; Visit Provider Radiology Diagnostic Radiology | DX: R05.9 Cough, unspecified (principal) | CPT/HCPCS: 71045 ==

== ENCOUNTER 2024-09-24 17:47 | Outpatient (REF) | payer MEDICAID, SELFPAY ==
--- OUTSIDE RECORDS SUMMARY | 2024-09-24 19:41 | XMS_ITS | Encounter Summary ---
Author Organization [facility] Address [address] [place] [address] [address] [place] [address] Care Team Providers Care System Admin Name Role Phone Cathy Gerber Primary Care Provider Encounter Details Date Type Department Care Team (Late st Contact Info) Description 09/03/2022 Abstract [facility] [address] [place] [phone] Cathy Gerber ANP [address] [place] [address] Social History Tobacco Use Types Packs/Day Years [...] as of this encounter Plan of Treatment Upcoming Encounters Date Type Department Care Team (Late st Contact Info) Description 10/23/2024 2:30 PM EDT Office Visit [facility] [address] [place] [phone] Cathy Gerber ANP [address] [place] [address] documented as of this encounter Visit Diagnoses Not on filedocumented in this encounter Care Teams System Admin Relationship Specialty Start Date End Date Cathy Gerber ANP [address] [place] [address] PCP - General Family Medicine 06/28/22 documented as of this encounter
--- OUTSIDE RECORDS SUMMARY | 2024-09-24 19:41 | XMS_ITS | Encounter Summary ---
Author Organization [employer] [facility] Address [address] [place] [address] [address] [place] [address] Care Team Providers Care Senior Revenue Accountant Name Role Phone Cathy Gerber Primary Care Provider [phone] Reason for Visit * Reason Comments Med Refill Encounter Details Date Type Department Care Team (Late Contact Info) Description 11/23/2022 Refill [facility] [address] [place] [phone] Cathy Gerber ANP [address] [place], [place] [phone] Chronic pain syndrome Social History Tobacco Use [...] Encounters Date Type Department Care Team (Late Contact Info) Description 10/23/2024 2:30 PM EDT Office Visit [facility] [address] [place] [phone] Cathy Gerber ANP [address] [place], [place] [phone] documented as of this encounter Visit Diagnoses Diagnosis Chronic pain syndrome documented in this encounter Care Teams Senior Revenue Accountant Relationship Specialty Start Date End Date Cathy Gerber ANP [address] [place] [address] PCP - General Family Medicine 06/28/22 documented as of this encounter
--- OUTSIDE RECORDS SUMMARY | 2024-09-24 19:41 | XMS_ITS | Data Portability ---
Author Organization [facility]ingying Lic[facility], Main Office Address [address] [place] [address] Care Team Providers Care Dairy Management Specialist Name Role Phone [facility] OTHER [facility] Primary Care Provider Assessment Encounter Date [...] By Organization Details Last Modified Time 04/26/2021 [id number] F/U Appointments : see web content & social media manager paperwork for details Total time spent on discharge: 60 minutes Scripts for all meds and DME for 30-day supply given to patient [email or web address] Not available 04/26/2021 21:51:13 Reason for Referral None Reported. Problems Name Problem SNOMED Code Status Onset Date Resolution Date Notes Provider Name and Address Organization Details Recorded Time Seizure disorder 149841500 Active 2019 Jose A Lassiter MD [address] , [address], [place], [address], [facility] [employer] 0 13:55:28 Generalized anxiety disorder 48258902 Active 2019 MARK Ramirez [address], [address], [place], [address], [facility] [employer] [facility] 0 09:49:37 SARS-CoV-2 Active 2019 RICKEY RamirezP [address], [address], [place], [address], [facility] 0 15:33:01 Liver enzymes level above reference range 861604895 Active 2019 MARK Ramirez [address], [address], [place], [address], [facility] 0 15:39:51 Neuropathy 874770781 Active 2019 Moraima Hanson MD [address], [address], [place], [address], [facility] 0 01:05:16 Asthma 313541977 Active 2020 Kristi Stoutland null, [facility] [employer] [facility] 1 14:43:52 Restless legs 04393527 Active 2020 Moraima Hanson MD [address], [address], [place], [address], [facility] [employer] [facility] 1 19:06:32 Hemiplegia and/or hemiparesis following stroke 2430627738191 7 Active 2018 Moraima Hanson MD [address], [address], [place], [address], [facility] [employer] [facility] 9 14:54:01 Essential hypertensio n 88520329 Active 2018 Moraima Hanson MD [address], [address], [place], [address], [facility] [employer] [facility] 9 14:57:00 History of cocaine abuse 7423217480579 06 Active 2018 Moraima Hanson MD [address], [address], [place], [address], [facility] [employer] [facility] 9 14:57:30 Schizoaffec tive disorder, mixed type 287703814 Active 2018 Moraima Hanson MD [address], [address], [place], [address], [place] [employer] 9 14:59:21 Insomnia 372532954 Active 2018 Moraima Hanson MD [address], [address], [place], [address], [facility] [employer] 9 15:02:16 History of alcoholism 207497402 Active 2018 Moraima Hanson MD [address], [address], [place], [address], [facility] [employer] 9 15:05:25 Chronic pain syndrome 854687265 Active 2018 Moraima Hanson MD [address], [address], [place], [address], [employer] 9 01:07:55 Diabetes mellitus 12705744 Active 2019 Kristi Hernandez [facility], [employer] 0 11:07:50 Problem Notes None recorded. Medical Equipment None Reported. Allergies No known drug allergies Medications Not known to be on any medication Vitals Date Recorded Body height Systolic blood pressure Diastolic blood pressure Provider Name and Address Organization Details Last Updated DateTime 02/28/2021 142.24 cm 125 mm[Hg] 86 mm[Hg] Kristi Hernandez [place] [facility] [employer] 02/28/2021 10:01:32 Date Recorded Body height Heart rate Respiratory rate Body temperature Oxygen saturation Oxygen saturation in Arterial blood by Pulse oximetry Systolic blood pressure Diastolic blood pressure Provider Name and Address Organization Details Last Updated DateTime 142.24 cm 95 /min 20 /min 97.5 [degF] 96 % 96 % 129 mm[Hg] 87 mm[Hg] MARK Ramirez [address], [address], [place], [address], [employer] 1 11:18:00 Date Recorded Body height Systolic blood pressure Diastolic blood pressure Provider Name and Address Organization Details Last Updated DateTime 04/10/2021 142.24 cm 126 mm[Hg] 79 mm[Hg] Kristi Hernandez [facility] [employer] 04/10/2021 15:45:20 Date Recorded Body height Body temperature Systolic blood pressure Diastolic blood pressure Provider Name and Address Organization Details Last Updated DateTime 04/21/2021 142.24 cm 97.1 [degF] 132 mm[Hg] 82 mm[Hg] BIMAL NGUYEN [address], [address], [place], [address] , [employer] 12:15:12 Date Recorded Body height Body temperature Heart rate Respiratory rate Oxygen saturation Oxygen saturation in Arterial blood by Pulse oximetry Body mass index (BMI) Body weight Systolic blood pressure Diastolic blood pressure Provider Name and Address Organization Details Last Updated DateTime 142.24 cm 97.3 [degF] 84 /min 18 /min 97 % 97 % 53.9 kg/m2 028025. 25 g 132 mm[Hg] 82 mm[Hg] EM NAIR PA-C [address], [place], [address], [employer] 21:23:07 Social History Question Answer Notes LastModified by Organizat ion Details LastModified Time Tobacco Smoking Status Former Smoker hasn't smoked since CVA in 11/07 Not Available [employer] 05/17/2020 03:13:22 Do You Have An Advance Directive? Yes Full Code [id number] Information not available 05/17/2020 What Is Your Level Of Alcohol Consumption? None Hx Of Heavy Use [id number] Information not available 05/17/2020 How Much Tobacco Do You Chew? None [id number] Information not available 05/17/2020 Do You Or Have You Ever Used E-cigarettes Or Vape? Former User Of Electronic Cigarettes [id number] Information not available 05/17/2020 Do You Have A Medical Power Of Customer Solutions Supervisor? No [id number] Information not available 05/17/2020 What Was The Date Of Your Most Recent Tobacco Screening? 10/28/2020 [email or web address] Information not available 11/05/2020 Do You Or Have You Ever Used Smokeless Tobacco? Never Used Smokeless Tobacco [id number] Information not available 05/17/2020 How Much Tobacco Do You Smoke? No [id number] Information not available 05/17/2020 How Many Years Have You Smoked Tobacco? 25 [id number] Information not available 05/17/2020 Sex: Unknown Functional [...] mcg/0.3 mL dose 08/24/2020 completed Loisberyl Jo [facility] 10/25/2020 14:49:01 COVID-19, mRNA, LNP-S, PF, 30 mcg/0.3 mL dose 08/03/2020 completed Lois Jo [facility] 10/25/2020 14:49:09 Past Encounters Encounter ID Performer Location Encounter Start Date Encounter Closed Date Diagnosis/Indication Diagnosis SNOMED-CT Code Diagnosis ICD10 Code Diagnosis Note [id number] Moraima Hanson MD [facility] on [address] [place] [address] 07/16/2019 13:30:56 07/29/2019 16:09:58 Hemiplegia and/or hemiparesis following stroke 3467212017 9107 I69.151 With minimal function of RLE and better, but not normal function of RUE. Needs PT/OT for strengthen ing and function. Hopefully will still have continued improvemen t. Essential hypertension 64948388 I10 Elevated this AM, then improved. May be due to new environmen t. Monitor closely and adjust meds as needed. parameters are SBP<130 and DBP<80. Continue lisinopril 10 mg qd and doxazosin 1 mg qd. Also on clonidine 0.2 mg BID. for mood which will help BP. Monitor BP and labs. History of cocaine abuse 4963474824 63742 F14.10 No use in 8 months. Will likely be LTC. Monitor for urge to use. Schizoaffe ctive disorder, mixed type 329053317 F25.0 With psych involvemen t at prior facility. With depression regarding physical limitation s. Continue Cymbalta 30 mg BID, Remeron 7.5 mg qhs, Buspar 10 mg TID, Abilify 7.5 mg qd, and clonidine 0.2 mg BID. Psych consult. Chronic pain syndrome 37 4447902 G89.4 With right leg pain since stroke. Parasthesi as. She says gabapentin doesn't help. May need increased dose, but for now will continue gabapentin 600 mg QID, lidoderm patch, cyclobenza lalo 10 mg BID and ibuprofen 400 mg TID prn. Insomnia 267133046 G47.0 9 Meds as above. Monitor sleep patterns. History of alcoholism 16 2706526 F10.21 Continue Folic acid and thiamine. Monitor [id number] Kristi Hernandez [facility] on [address] [place] [id number] 07/27/2019 10:31:51 08/04/2019 16:25:19 Hemiplegia and/or hemiparesis following stroke 4256084450 9107 I69.151 With minimal function of RLE and better, but not normal function of RUE.Cont PT/OT Essential hypertension 80808278 I10 BP mostly well controlled Continue lisinopril 10 mg qd and doxazosin 1 mg qd. Monitor BP and labs. Schizoaffe ctive disorder, mixed type 042771904 F25.0 Continue Cymbalta 30 mg BID, Remeron 7.5 mg qhs, Buspar 10 mg TID, Abilify 7.5 mg qd, and clonidine 0.2 mg BID. Psych consult. History of alcoholism 16 6836368 F10.21 Continue Folic acid and thiamine. Monitor Diabetes mellitus 526708 09 E11.9 Add metformin 500 mg BIDSliding scale insulin TID-will attempt to d/c this if can control glucose with oral agentsObta in HbA1c now-was 5.4 in r blood glucose [id number] Kristi Hernandez [facility] on [address] [place] [phone] 08/03/2019 14:54:49 08/05/2019 13:34:01 Diabetes mellitus 22601915 E11.9 Increase metformin 850 mg BID-goal to d/c sliding scale insulin if can control with oral agents aloneSlidi ng scale insulin TIDMonitor blood glucose [id number] Kristi Hernandez [facility] on [address] [place] [id number] 08/12/2019 08:07:16 08/14/2019 16:30:28 Diabetes mellitus 22495761 E11.9 Increase metformin 1000 mg BIDSliding scale insulin TIDMonitor blood glucose Repeat HbA1c in October Hemiplegia and/or hemiparesis following stroke 2285264082 9107 I69.151 With minimal function of RLE and better, but not normal function of RUE.Cont PT/OT Essential hypertension 44633258 I10 BP well controlled Continue lisinopril 10 mg qd and doxazosin 1 mg qd. Monitor BP and labs. Schizoaffe ctive disorder, mixed type 122979482 F25.0 Continue Cymbalta 30 mg BID, Remeron 7.5 mg qhs, Buspar 10 mg TID, Abilify 7.5 mg qd, and clonidine 0.2 mg BID. Psych consult. History of alcoholism 16 2140632 F10.21 Continue Folic acid and thiamine. Monitor Insomnia 668289533 G47.0 9 Previously on trazodone and seroquel however states these medication s caused her to gain weightMela tonin ineffectiv e per patientWil [place] [id number] Kristi Ames [facility] on [address] [place] [id number] 08/17/2019 12:32:07 08/25/2019 08:58:18 Tonic-clonic seizure 38606017 G40.309 Send to ED to r/o new onset seizure disorder Diabetes mellitus 241735 09 E11.9 Metformin 1000 mg BIDSliding scale insulin TIDMonitor blood glucose-cu rrently stable Hemiplegia and/or hemiparesis following stroke 1720336094 9107 I69.151 With minimal function of RLE and better, but not normal function of RUE.Cont PT/OT [id number] [facility] [address] [place] [id number] 08/18/2019 11:16:05 08/25/2019 09:28:10 Tonic-clonic seizure 29306450 G40.309 Request neurology consult for seizure work-upMon itor for further seizure activity Hemiplegia and/or hemiparesis following stroke 4345016687 9107 I69.151 With minimal function of RLE and better, but not normal function of RUE.Cont PT/OT [id number] [facility] [address] [place] [address] 08/31/2019 12:41:20 09/03/2019 09:55:53 Tonic-clonic seizure 29800931 G40.309 Was recently started on KeppraNeur o consult states if skin change/noble h develops to immediatel y d/c medKeppra now d/c'dWill have nursing update neurology and request alternativ e medSeizure precaution s in place [id number] Jose A Lassiter MD [facility] on [address] [place] [phone] 09/15/2019 13:51:15 09/21/2019 15:28:53 Seizure disorder 126027969 G40.89 eval by dano agudelo keppra to 500 mg bidcheck level in 2 weeksmonit or for activityEE G to be scheduled through neuro Essential hypertension 79761612 I10 doxazosin 1 mg qdclonidin e 0.2 mg bidlisinop ril 10 mg qdmonitor bptitrate if elevating Schizoaffe ctive disorder, mixed type 498745557 F25.0 at baselineco ntinue supportive carepsych [place]tit[place] [id number] MARK Ramirez [facility] on [address] [place] [phone] 09/21/2019 09:32:37 09/24/2019 10:57:41 Chronic pain syndrome 694046043 G89.4 will trial tramadol 25 mg 1 q 12 hrs prn paincontin ue tylenol prn and gabapentin 600 mg q 6 hrsmonitor for pain relief though would avoid increasing med 2/2 hx of polysubsta nce abuseif tramadol doesn't help then it should be discontinu ed Generalize d anxiety disorder 54511144 F41.1 will trial atarax 25 mg 1 q 6 hrs prn anxietyavo id benzos with hx of polysubsta nce abuse [id number] Kristi Hernandez [facility] on [address] [place] [id number] 10/13/2019 13:34:08 10/20/2019 14:48:17 Diabetes mellitus 93372161 E11.9 Metformin 1000 mg BIDAdd lantus 8 units QHS Sliding scale insulin TIDMonitor blood glucoseRep eat HbA1c Olivia Essential hypertension 58668266 I10 BP well controlled Continue lisinopril 10 mg qd and doxazosin 1 mg qd. Monitor BP and labs. Hemiplegia and/or hemiparesis following stroke 2116186069 9107 I69.151 With right hemiparesi sCont PT/OT Seizure disorder 9861568 02 G40.89 eval by neurologyk eppra 500 mg bidf/u with neuro as scheduled Schizoaffe ctive disorder, mixed type 393995767 F25.0 at baselineco ntinue supportive carepsych [place] [id number] Kristi Hernandez [facility] on [address] [place] [phone] 10/27/2019 13:10:01 10/29/2019 10:33:47 Diabetes mellitus 89510682 E11.9 Metformin 1000 mg BIDIncreas e lantus 16 units QHSSS insulin TIDMonitor blood sugars [id number] Kristi Hernandez [facility] on [address] [place] [id number] 11/02/2019 11:10:12 11/03/2019 18:04:58 Seizure disorder 589842829 G40.89 Increase keppra 1000 mg bidKeppra level in 1 weekMonito r for activityf/ u with neuro as scheduled [id number] BIMAL NGUYEN [facility] on [address] [place] [address] 11/09/2019 14:26:42 11/17/2019 08:35:51 Tachycardia 7686797 R00.0 Z20.828 COVID 19 swab nowroom on precaution s [id number] MARK Ramirez [facility] on [address] [place] [phone] 11/12/2019 15:25:48 11/17/2019 09:48:53 SARS-CoV-2 058088065 U07.1 monitor temp, sats q shiftmonit or for change in status, resp or gi distresssu pportive careO2 prn hypoxiaIV fluids if pt becomes dehydrated dc ibuprofen Liver enzy mes level above reference range 452696255 R74.8 dc tylenolCMP weekly on Mondaysdc metformin due to liver injury as belowconsi chelsea further med review if LFTs remain elevated Diabetes mellitus 978597 09 E11.9 dc metformin due to liver injury 2/2 COVID with elevated liver enzymescon tinue humalog sliding scalemonit or accuchecks TIDstart lantus 5 units q pm and adjust as needed [id number] Moraima Hanson MD [facility] on [address] [place] [address] 11/13/2019 13:17:23 11/17/2019 10:21:57 SARS-CoV-2 015738647 U07.1 Continue to monitor closely for hypoxia or fever. Also monitor po intake and use IV fluids if needed.O2 prn for hypoxia.No w with cough, but normal lung sounds. No CXR needed at this point. Liver enzy mes level above reference range 489459583 R74.8 Hepatotoxi c meds d/c'd yest. Had nl. LFTs when checked in 07/2019. Continue to monitor for worsening. Avoid hepatotoxi c meds as able. Cannot d/c keppra. Diabetes mellitus 871401 09 E11.9 Metformin d/c'd yest. Continue to monitor accuchecks TID and continue lantus 5 units qpm [id number] BIMAL [facility] on [address] [place] [phone] 11/19/2019 15:14:46 11/26/2019 15:08:13 SARS-CoV-2 716928342 U07.1 Continue to monitor closely for hypoxia or fever. Also monitor po intake and use IV fluids if needed.O2 prn for hypoxia.No w with cough, but normal lung sounds. No CXR needed at this point. Liver enzy mes level above reference range 074098119 R74.8 will repeat next week to see if improved Diabetes mellitus 595672 09 E11.9 add back metformin 500 mg BID Continue to monitor accuchecks TID and continue lantus 5 units qpm, may need to increase as her sugars are poorly controlled and were not much better on the metformin alone [id number] BIMAL [facility] on [address] [place] [address] 11/23/2019 16:15:36 11/27/2019 08:47:48 SARS-CoV-2 442751830 U07.1 Continue to monitor closely for hypoxia or fever. Also monitor po intake and use IV fluids if needed.O2 prn for hypoxia.No w with cough, but normal lung sounds. No CXR needed at this point. Liver enzy mes level above reference range 025919756 R74.8 repeat LFTs tomorrow Diabetes mellitus 133089 09 E11.9 continue metformin 500 mg BID increase lantus to 7 units QHS monitor accuchecks QID [id number] [employer] [facility] on [address] [place] [phone] 3 11/24/2019 13:01:25 11/27/2019 09:25:49 SARS-CoV-2 098704106 U07.1 patient asymptomat ic,only dry cough likely on the end of illness monitor for symptom based resolution continue to monitor vitals Liver enzy mes level above reference range 028847762 R74.8 repeat LFTs tomorrow Diabetes mellitus 379250 E11.9 continue metformin 500 mg BID increase lantus to 7 units QHS monitor accuchecks QID [id number] [facility] [address] [place] [phone] 11/25/2019 19:25:08 11/27/2019 10:23:44 SARS-CoV-2 569974915 U07.1 patient asymptomat ic,only dry cough likely on the end of illness monitor for symptom based resolution continue to monitor vitals may come off precaution s 12/07 Liver enzy mes level above reference range 368430538 R74.8 much improved 80/76consi chelsea increase metformin to 1000 mg BID Diabetes mellitus 114942 09 E11.9 continue metformin 500 mg BID- consider increase to 1000 mg BID increase lantus to 10 units QHS monitor accuchecks QID [id number] [employer] [facility] on [address] [place] [phone] 12/02/2019 11:51:27 12/08/2019 10:28:31 SARS-CoV-2 526843678 U07.1 Resolved and now off precaution s Liver enzy mes level above reference range 631799889 R74.8 much improved 80/76 Diabetes mellitus 630387 09 E11.9 Increase metformin to 1000 mg BID continue lantus to 10 units QHS monitor accuchecks QID- may increase lantus if needed [id number] Jose A Lassiter MD [facility] on [address] [place] [phone] 3 12/10/2019 14:10:05 12/15/2019 09:57:22 SARS-CoV-2 806364618 U07.1 recent dxnow appears past acute phase in recovery towards baselinemo nitor for change in presentati on and secondary infection Schizoaffe ctive disorder, mixed type 623444598 F25.0 currently stable at baselineco ntinue supportive carepsych to followtitr ate meds prn Essential hypertension 20999151 I10 continue current meds monitor bptitrate as needed if not responding [id number] Kristi Hernandez [facility] on [address] [place] [id number] 01/01/2020 13:07:57 01/05/2020 09:45:19 Piercing of external ear 669260270 Z41.3 No signs of infection currentlyR eviewed proper care of piercing to avoid potential infectionA hampton that piercings will need to be removed if become infectedWi ll monitor [id number] Kristi Hernandez [facility] on [address] [place] [id number] 3 02/03/2020 15:09:59 02/09/2020 14:21:38 Fall 8050750 R29.6 Ambulates with walker independen tlyPT eval Pain in ri ght hip joint 5171564527 29456 M25.551 Able to weight bear without painNo deformity of legDo not feel x-ray is needed at this timeWill monitor and if pain persists consider imaging [id number] MARK Ramirez [facility] on [address] [place] [id number] 3 02/04/2020 15:33:22 02/09/2020 14:34:16 SARS-CoV-2 280793874 U07.1 recovered Schizoaffe ctive disorder, mixed type 372118777 F25.0 supportive careremero n 7.5 mg qhscymbalt a 30 mg bidbuspar 10 mg tidpsych prnadjust meds prn Essential hypertension 59405233 I10 bp elevated most of the timewill increase lisinopril to 20 mg qdclonidin e 0.2 mg biddoxazos in 1 mg qdmonitor bp daily and check CMP on 02/07adjust meds prn Diabetes mellitus 468790 09 E11.9 off metformin due to liver injury 2/2 COVID with elevated liver enzymesast /alt 78/75 on continue humalog sliding scalemonit or accuchecks TIDincreas e lantus to 15 units q pm and adjust as needed [id number] Kristi Hernandez [facility] [address] [place] [id number] 3 02/05/2020 16:44:28 02/09/2020 14:23:45 Gastroesophageal reflux disease without esophagitis 040500130 K21.9 Add tums PRNIf sxs persist will add PPIMonitor Essential hypertension 65409163 I10 Lisinopril increased 20 mg daily 02/03 BP currently stable Monitor bp and adjust meds PRN [id number] MARK Ramirez [facility] [address] [place] [phone] 3 02/12/2020 13:40:20 02/16/2020 13:34:57 Chronic pain syndrome 405826659 G89.4 continue tramadol 25 mg 1 q 12 hrs prn paincontin ue tylenol prn and gabapentin 600 mg q 6 hrsmonitor for pain relief though would avoid increasing med 2/2 hx of polysubsta nce abusewill increase flexeril to 20 mg qhs and continue flexeril 10 mg bidmonitor for relief Insomnia 985960624 G47.0 9 continue trazodone 50 mg qhswill add trazodone 50 mg qhs prn insomniamo nitor for effect [id number] Kristi Hernandez [facility] on [address] [place] [phone] 3 02/19/2020 13:55:41 02/24/2020 10:55:41 Dysuria 16071262 R30.0 Obtain UA, C&S nowEncoura ge fluids Monitor [id number] Kristi Hernandez [facility] on [address] [place] [id number] 3 03/08/2020 10:49:53 03/15/2020 11:56:31 Hemiplegia and/or hemiparesis following stroke 6262501670 9107 I69.151 Increased neuropathi c painSuppor tive care Neuropathy 553136213 G62 .89 Increase gabapentin 900 mg TIDAlso has tramadol PRN Monitor for pain control [id number] Kristi Hernandez [facility] on [address] [place] [phone] 3 03/18/2020 09:56:58 03/22/2020 10:02:41 Diabetes mellitus 34931859 E11.9 Metformin 1000 mg BIDIncreas e Lantus 25 units QHS continue humalog sliding scalemonit or accuchecks TID Liver enzy mes level above reference range 092283574 R74.8 Last checked 02/07Will repeat 03/21If remain elevated will check hepatitis panel [id number] Kristi Hernandez [facility] on [address] [place] [id number] 3 03/21/2020 09:14:12 03/24/2020 11:17:51 Edema of lower extremity 616571366 R60.0 Mild edema of R legEncoura ge elevationC ompression stocking to R leg on AM, off HSMonitor [id number] Moraima Hanson MD [facility] on [address] [place] [address] [phone] 3 03/25/2020 16:08:10 03/30/2020 10:14:54 Diabetes mellitus 38519412 E11.9 With very elevated HgA1C in 10/2019, and with high daily accuchecks .Lantus just increased from 15U to 25U on 03/18 Continue Metformin 1000 mg BID and humalog sliding scaleMonit or accuchecks TID and recheck HgA1C on 03/29. Liver enzy mes level above reference range 750842563 R74.8 Almost WNL on 03/21Hepati tis panel neg.Likely fatty liver.Will recheck with next labs and consider GI consult if still elevated. Neuropathy 421200018 G62 .89 With continued pain into right [...] pain control Hemiplegia and/or hemiparesis following stroke [id number] 9107 I69.151 Increased neuropathi c pain as above. Continue Supportive care Chronic pain syndrome 37 9452029 G89.4 Meds as above, also cyclobenza lalo 20 mg qhs and 10 mg bidMonitor pain sxs. Insomnia 346947445 G47.0 9 Continue trazodone 50 mg qhs and repeat prn insomniaMo nitor sleep patterns. SARS-CoV-2 040677946 U07 .1 recovered Monitor for sequelae. Schizoaffe ctive disorder, mixed type 237028824 F25.0 Mood good.Muriel nue remeron 7.5 mg qhs, cymbalta 30 mg BID, buspar 10 mg TID and hydroxyzin e 25 mg q 6 hrs prn.Psych involved. Essential hypertension 67173441 I10 BP in good control.Co ntinue lisinopril 20 mg qd, clonidine 0.2 mg BID and doxazosin 1 mg qdMonitor BP and labs. Seizure disorder 4848021 02 G40.802 No recent seizure activity. Continue keppra 1000 mg BID. Monitor for seizure as activity. [id number] Kristi Hernandez [facility] on [address] [place] [address] [phone] 3 04/06/2020 12:13:46 04/08/2020 11:49:58 Diabetes mellitus 04160483 E11.9 Metformin 1000 mg BIDLantus 25 units QHSAdd Trulicity 0.75 mg Qweekly continue humalog sliding scalemonit or accuchecks TID [id number] Kristi Hernandez [facility] on [address] [place] [address] [phone] 3 04/08/2020 13:41:20 04/11/2020 16:13:48 Anxiety 64646904 F41.1 D/c buspar, remeron as feels these are ineffectiv eWill add clonazepam 0.5 mg QPMCont cymbalta and clonidineM onitor for effect Insomnia 615950070 G47.0 9 Add melatonin 5 mg QHSMonitor [id number] Cindy Mireles [facility] on [address] [place] [address] [phone] 3 05/12/2020 09:29:01 05/16/2020 15:19:23 Anxiety 91367726 F41.1 appears stable at this timecontin ue clonazepam 0.5 mg QPM- as started on 04/08Contin ues on cymbalta and clonidineM onitor for effect Diabetes mellitus 903225 09 E11.9 Metformin 1000 mg BIDLantus 25 units QHSTrulici ty 0.75 mg Qweekly humalog sliding scalemonit or accuchecks TID Neuropathy 676914356 G62 .89 With continued pain into right [...] pain control Hemiplegia and/or hemiparesis following stroke 2175996226 9107 I69.151 with neuropathi c pain as above. Continue Supportive care Chronic pain syndrome 37 2658934 G89.4 tramadol 25mg bidgabapen tin 900mg bid and 1200qhscyc lobenzapri ne 20 mg qhs and 10 mg bidpt also on ropinerole 0.5mg qhs for restless legsMonito r pain sxs. Essential hypertension 42327061 I10 stablelisi nopril 20 mg qdclonidin e 0.2 mg BIDdoxazos in 1 mg qdMonitor BP and labs. Insomnia 158510514 G47.0 9 trazodone 50mg qhs monitor for effect [id number] Cindy Mireles [facility] on [address] [place] [phone] 05/19/2020 11:54:46 05/23/2020 16:16:27 Neuropathy 851512904 G62.89 With continued pain into right leg [...] as aboveMonit or for pain control Anxiety 66541478 F41.1 stable at this timeclonaz epam 0.5 mg QPM- as started on 04/08cymbal ta and clonidineM onitor for effect Chronic pain syndrome 37 1012323 G89.4 tramadol 25mg bidgabapen tin 900mg bid and 1200qhscyc lobenzapri ne 20 mg qhs and 10 mg bidropiner ole 0.5mg qhs for restless legsMonito r pain sxs. Diabetes mellitus 042728 09 E11.9 Metformin 1000 mg BIDLantus 25 units QHSTrulici ty 0.75 mg Qweekly humalog sliding scalemonit or accuchecks TID Essential hypertension 70698470 I10 stablelisi nopril 20 mg qdclonidin e 0.2 mg BIDdoxazos in 1 mg qdMonitor BP and labs. Morbid obesity 482905084 E66.01 discussion with pt today about weight being a factor in her chronic pain/neuro misty and would benefit greatly from weight loss- she plans to walk the hallways more.encou rage weight lossdietar y eval prn [id number] Kristi Mary [facility] on [address] [place] [address] [phone] 3 05/25/2020 14:00:25 05/27/2020 14:19:01 Diabetes mellitus 54794622 E11.9 HbA1c remains above goalIncrea se Trulicity 1.5 mg QweeklyCon tMetformin 1000 mg BIDLantus 25 units QHScontinu e humalog sliding scalemonit or accuchecks TID [id number] Linda Vazquez MD [facility] on [address] [place] [address] [phone] 3 07/13/2020 07:12:00 07/19/2020 15:35:48 Chronic pain syndrome 888592454 G89.4 cyclobenza lalo 20 mg at hs and 10 mg bidtramado l 25 mg q12h prnduloxet ine 30 mg bidgabapen tin 900 mg bid and 1200 mg at hswill monitor Diabetes mellitus 974160 09 E13.42 Trulicity 1.5 mg weekly SCLantus 25U at hs will monitor Essential hypertension 34602393 I10 doxazosin 1 mg dailycloni dine 0.2 mg bidlisinop ril 20 mg dailywill monitor SARS-CoV-2 522527406 U07 .1 diagnosed 11/11/19rec overed Mixed anxi ety and depressive disorder 479856369 F41.8 clonazepam 0.5 mg dailytrazo done 50 mg at hsduloxeti ne 30 mg bidhydroxy zine 25 mg q6h prnwill monitorMed Options prn Seizure disorder 5275912 02 G40.909 levetirace munoz 1000 mg bidwill monitor [id number] Kristi Hernandez [facility] on [address] [place] [address] [phone] 3 07/25/2020 13:05:51 07/29/2020 09:55:07 Hordeolum externum of upper eyelid of left eye 5884987186 15356 H00.014 With concern for possible cellulitis Start Keflex 500 mg PO, q 6 hrs for 7 days.Cultu relle BID for 10 days.D/C erythromyc in.Polytri m 1 gtt to left eye daily for 7 days.Warm compresses to eye TIDMonitor closely [id number] [facility] [address] [place] [address] [phone] 3 08/05/2020 11:06:21 08/08/2020 15:13:54 Insomnia 501752330 G47.09 Increase trazodone 75 mg QHSMonitor for effect [id number] Kristi [facility] on [address] [place] [address] [phone] 3 08/08/2020 12:03:49 08/10/2020 13:44:13 Diabetes mellitus 05587568 E11.9 Blood sugars appear improvedTr ulicity 1.5 mg Qweekly Metformin 1000 mg BID Lantus 25 units QHSHumalog sliding scale TIDmonitor accuchecks Repeat HbA1c in Feb Hemiplegia and/or hemiparesis following stroke 8848699238 9107 I69.151 Ambulates with walker Encouraged to increase physical activity as tolerated Supportive care Chronic pain syndrome 37 3230888 G89.4 Cymbalta 30 mg BIDMonitor for pain control Insomnia 074329391 G47.0 9 D/c trazodone as is ineffectiv eCurrently has klonopin scheduled in afternoon- will change to bedtimeMon itorConsid er d/c klonopin and start ambien if insomnia not improving Schizoaffe ctive disorder, mixed type 647515100 F25.0 Mood good.Muriel nue remeron 7.5 mg qhs, cymbalta 30 mg BID, buspar 10 mg TID and hydroxyzin e 25 mg q 6 hrs prn.Psych involved. Essential hypertension 66360153 I10 BP in good control.Co ntinue lisinopril 20 mg qd, clonidine 0.2 mg BID and doxazosin 1 mg qdMonitor BP and labs. Seizure disorder 4680961 02 G40.802 No recent seizure activity. Continue keppra 1000 mg BID. Monitor for seizure as activity. [id number] BIMAL NGUYEN [facility] on [address] [place] [address] [phone] 3 08/12/2020 12:30:44 08/15/2020 16:37:05 Hemiplegia and/or hemiparesis following stroke 0780761168 9107 I69.151 Ambulates with walker Encouraged to increase physical activity as tolerated Supportive care Chronic pain syndrome 37 1279707 G89.4 Cymbalta 30 mg BIDtramado l 25 mg BID PRNadd ibuprofen 600 mg qhs and BID PRNconside r increase in tramadol if not effectiveM onitor for pain control [id number] Kristi Hernandez [facility] on [address] [place] [address] [phone] 3 08/15/2020 14:44:34 08/17/2020 12:10:36 Broken tooth without complication 38329504 S02.5XXA Left bottom central incisor with significan t decay/appe ars brokenRequ est dental consultAdd orajel PRN for tooth painMonito r [id number] Kristi Hernandez [facility] on [address] [place] [address] [phone] 3 08/24/2020 09:43:08 08/26/2020 09:06:58 Essential hypertension 22678545 I10 BP often elevatedIn crease lisinopril 40 mg dailyCloni dine 0.2 mg BIDDoxazos in 1 mg qd Monitor BP and labs. Insomnia 561571354 G47.0 9 Will add ambien 5 mg QHS prnMonitor for effect [id number] Kristi Hernandez [facility] on [address] [place] [address] [phone] 3 08/31/2020 14:38:05 09/01/2020 16:21:10 Asthma 808030012 J45.40 Albuterol inhaler PRNAdd Flovent HFA BIDMonitor resp status [id number] Kristi Hernandez [facility] on [address] [place] [address] [phone] 3 09/09/2020 13:14:26 09/12/2020 13:28:51 Diabetes mellitus 72763632 E11.9 Blood sugars now elevated, HbA1c improved but not yet at goalGoal HbA1c <8.0Increa se Lantus 35 units QHSContTru licity 1.5 mg Qweekly Metformin 1000 mg BID Humalog sliding scale TID monitor accuchecks Repeat HbA1c as ordered Hemiplegia and/or hemiparesis following stroke 9486362303 9107 I69.151 Ambulates with walker Encouraged to increase physical activity as tolerated Supportive care Chronic pain syndrome 37 1712924 G89.4 Cymbalta 30 mg BIDMonitor for pain control Schizoaffe ctive disorder, mixed type 922713641 F25.0 Mood good.Muriel nue remeron 7.5 mg qhs, cymbalta 30 mg BID, buspar 10 mg TID and hydroxyzin e 25 mg q 6 hrs prn.Psych involved. Essential hypertension 82519500 I10 BP in good control.Co ntinue lisinopril 20 mg qd, clonidine 0.2 mg BID and doxazosin 1 mg qdMonitor BP and labs. Seizure disorder 0711134 02 G40.802 No recent seizure activity. Continue keppra 1000 mg BID. Monitor for seizure as activity. Bacterial vaginosis 4197 77039 N76.0 Treat with MetroGel 0.75% QHS x 5 daysMonito r to resolution Refer to GENERAL ADMINISTRATOR as patient likely needs routine gynecologi arina care/PAP smear [id number] Kristi Hernandez [facility] on [address] [place] [address] 09/20/2020 09:42:48 09/21/2020 16:25:13 Cough 40489281 R05 Add Mucinex 400 mg BID x 5 daysEncour age fluidsMoni tor and if worsening or other sxs develop consider CXR [id number] Moraima Hanson MD [facility] on [address] [place] [phone] 10/28/2020 19:36:53 11/08/2020 14:55:28 Diabetes mellitus 99811803 E11.9 HgA1C much improved since starting trulicity in 05/2020, but still >8.0, So Lantus increased on 09/10/20. Continue Lantus 35 units QHS,, Trulicity 1.5 mg weekly, metformin 1000 mg BID and SSI. Monitor accuchecks TID and HgA1C q 3 months. Hemiplegia and/or hemiparesis following stroke 4111765572 9107 I69.151 Mostly in wheelchair . Continue to encourage increased physical activity as tolerated Supportive care Chronic pain syndrome 37 8381576 G89.4 As above. Schizoaffe ctive disorder, mixed type 282705709 F25.0 Mood good. Continue meds as above. Psych involved. Essential hypertension 93578190 I10 BP in good control. Continue lisinopril 40 mg qd, clonidine 0.2 mg BID and doxazosin 1 mg qd Monitor BP and labs. Seizure disorder 2523889 02 G40.802 No recent seizure activity. Continue keppra 1000 mg BID. Monitor for seizure as activity. Neuropathy 344326436 G62 .89 C/O continued pain into right leg and foot. Will increase gabapentin from 900 mg BID and 1200 qhs to 1200 mg TID. Monitor for sx relief or oversedati on. Continue tramadol 25 mg BID prn and duloxetine 30 mg BID Monitor for pain control Liver enzy mes level above reference range 146862261 R74.8 Almost WNL on 03/21 Hepatitis panel neg. Likely fatty liver. Not rechecked since 02/2020 Will recheck on 10/31 and consider GI consult if still elevated. Insomnia 079777513 G47.0 9 Continue melatonin 5 mg qhs and ambien 5 mg qhs. Monitor sleep patterns. SARS-CoV-2 586143228 U07 .1 recovered Monitor for sequelae. Restless legs 13164943 G 25.81 Continue ropinirole 0.5 mg qhs. [id number] Kristi Hernandez [facility] on [address] [place] [address] [phone] 3 11/07/2020 12:49:40 11/09/2020 09:05:40 Gastroesophageal reflux disease without esophagitis 431059507 K21.9 Add Prilosec 20 mg daily D/c ibuprofen as this can exacerbate sxs Tums PRN Monitor sxs Essential hypertension 77331778 I10 BP elevated above goal Lisinopril 40 mg daily Increase Doxazosin 2 mg daily Clonidine 0.2 mg BID Monitor [id number] Kristi Hernandez [facility] on [address] [place] [address] [phone] 3 11/16/2020 11:27:49 11/18/2020 11:03:47 Allergic rhinitis 72325330 J30.9 Add Claritin 10 mg daily x 4 weeks Monitor for effect Seasonal a llergic conjunctivitis 971270758 H10.13 Add Zaditor gtts BID x 4 weeks Monitor [id number] Kristi Hernandez [facility] on [address] [place] [address] [phone] 3 12/01/2020 15:53:59 12/06/2020 09:44:26 Generalized anxiety disorder 13265056 F41.1 Duloxetine 30 mg BID Klonopin 0.5 mg QHS Request psych eval [id number] CALEB PERKINS NP [facility] on [address] [place] [address] [phone] 3 12/27/2020 14:35:54 12/30/2020 13:11:57 Hemiplegia and/or hemiparesis following stroke 7832894124 9107 I69.359 mostly in wheelchair encourage increased physical activity Seizure disorder 3517345 02 G40.909 keppra 1000mg bid Schizoaffe ctive disorder, mixed type 159280206 F25.0 mood stable continue to monitor and chart any changes in mood or behaviors psych prn Restless legs 66497582 G 25.81 ropinole 0.5 mg daily mag ox 400 mg daily Neuropathy 769389689 G62 .9 gabapentin 1200 mg tid Insomnia 685054544 G47.0 0 ambien 5mg daily Generalize d anxiety disorder 91781378 F41.1 klonopin 0.5 mg daily cymbalta 30 mg bid Essential hypertension 53886825 I10 clonidine 0.2 mg bid lisinopril 40 mg daily doxazosin 2 mg daily monitor bp Diabetes mellitus 693653 09 E11.9 trulicity 1.5 mg daily metformin 1000mg bid monitor glucose Chronic pain syndrome 37 0909786 G89.4 tramadol 25 mg q12hr prn gabapentin 1200 mg tid cyclobenza lalo 10 mg bid, 20 mg hs Asthma 973710523 J45.90 9 flovent bid [id number] BIMAL NGUYEN [facility] on [address] [place] [address] [phone] 3 02/02/2021 14:57:56 02/07/2021 15:57:17 Impacted cerumen in left ear 6675159613 611822 H61.22 add debrox 5 gtts qhs and flush with warm NS on 6th daymonitor for relief [id number] Kristi Hernandez [facility] on [address] [place] [address] [phone] 3 02/15/2021 10:06:45 02/17/2021 15:34:14 Acute otitis externa 91431076 H60.591 Cipro HC Otic 3 gtts to R ear BID x 7 daysAdvise d patient to avoid inserting any foreign objects into ear including Q-tipsMoni tor to resolution [id number] EM NAIR PA-C [facility] on [address] [place] [address] [phone] 3 02/16/2021 20:59:13 02/21/2021 03:48:12 Peripheral neuropathy due to type 2 diabetes mellitus 9579282834 107 E11.42 No renal impairment or hyperkalem ia on NATALI-Amirah changes neededCons ider reduction in frequency of lab monitoring [id number] Linda Vazquez MD [facility] on [address] [place] [address] [phone] 3 02/20/2021 06:49:32 02/22/2021 11:44:42 Asthma 665259188 J45.30 flovent 44: 2 puffs bidwill monitor Chronic pain syndrome 37 8121069 G89.4 tramadol 25 mg q12h prnduloxet ine 30 mg bid and 60 mg at hsgabapent in 1200 mg tidibuprof en 400 mg q12h prncyclobe nzaprine 10 mg bid and 20 mg at hswill monitor Diabetes mellitus 627373 09 E13.42 Trulicity 1.5 mg weekly SCLantus 35U at hsmetformi n 1000 mg bidwill monitor Essential hypertension 66564698 I10 doxazosin 1 mg dailycloni dine 0.2 mg bidlisinop ril 20 mg dailywill monitor SARS-CoV-2 259178379 U07 .1 diagnosed 11/11/19rec overedwill continue to monitor Seizure disorder 9630742 02 G40.909 levetirace munoz 1000 mg bidwill monitor Mixed anxi ety and depressive disorder 200863207 F41.8 clonazepam 0.5 mg daily at hsduloxeti ne 30 mg bid and 60 mg at hsgabapent in 1200 mg tidclonidi ne 0.2 mg bidwill monitorpsy ch prn Primary insomnia 0562014 F51.01 zolpidem 5 mg at hs prnwill monitor Restless legs 49756374 G 25.81 ropinirole 0.5 mg at hswill monitor [id number] Kristi Ames [facility] on [address] [place] [address] [phone] 3 02/21/2021 13:57:17 02/24/2021 13:55:38 Diabetes mellitus 60340982 E13.42 HbA1c improved but not yet at goalGoal HbA1c <8.0Add Lantus 8 units QAM, cont 35 units QHSAdjust Humalog sliding scale, coverage to start at BS 150 (currently starts at BS 200)Trulic ity 1.5 mg QweeklyMet formin 1000 mg BIDmonitor accuchecks Repeat HbA1c as ordered [id number] Kristi Hernandez [facility] on [address] [place] [address] [phone] 3 02/22/2021 14:12:57 02/24/2021 14:05:11 Morbid obesity 183233802 E66.01 Discussed with patient-wi ll replace 1 meal (she prefers dinner) with protein shake-daniel ent to supply kitchen with powder to prepare as she is unable to have blender machine operator in roomMonito r weights [id number] Kristi Hernandez [facility] on [address] [place] [address] [phone] 3 02/28/2021 10:01:05 03/07/2021 16:10:20 Insomnia 313475321 G47.09 Increase ambien 10 mg QHSWill change admin time of Clonazepam to 2 PM to reduce risk of interactio n with AmbienMoni tor for effect [id number] Shaylee Lowry ENGINE MAINTENANCE MECHANIC [facility] on [address] [place] [address] [phone] 3 03/13/2021 11:17:03 03/15/2021 14:31:48 Right sided chest pain 375540911 R07.89 doesn't appear have an infectionp ain only when sitting up and pt is morbidly obese with abd rollsarea of concern slightly edematousw ill have staff monitoradd lidocaine gel apply qd to abd roll prn pain [id number] Kristi Hernandez [facility] on [address] [place] [address] [phone] 3 04/10/2021 15:36:41 04/12/2021 11:23:43 Acute otitis externa 17996956 H60.591 CiproDex otic 4 gtts to L ear BID x 7 daysAdvise d patient to avoid inserting any foreign objects into ear including Q-tipsMoni tor to resolution [id number] BIMAL NGUYEN [facility] on [address] [place] [address] [phone] 3 04/21/2021 12:12:19 04/25/2021 09:47:12 Acute otitis externa 97039267 H60.591 repeat CiproDex otic 4 gtts to L ear BID x 7 daysAdvise d patient to avoid inserting any foreign objects into ear including Q-tipsfind otoscope to reassess Insomnia 684840729 G47.0 9 continue ambien 10 mg QHSClonaze guicho 2 PMMonitor for effect Morbid obesity 520466795 E66.01 monitor weightsmea l replacemen t shake one meal a day Diabetes mellitus 406434 09 E13.42 HbA1c improved but not yet at goalGoal HbA1c <8.0increa se Lantus to 10 units QAM, cont 35 units QHSHumalog sliding scale, coverage to start at BS 150 (currently starts at BS 200)Trulic ity 1.5 mg QweeklyMet formin 1000 mg BIDmonitor accuchecks Repeat HbA1c as ordered Asthma 984039067 J45.30 flovent 44: 2 puffs bidwill monitor Chronic pain syndrome 37 0808272 G89.4 tramadol 25 mg q12h prnduloxet ine 30 mg bid and 60 mg at hsgabapent in 1200 mg tidibuprof en 400 mg q12h prncyclobe nzaprine 10 mg bid and 20 mg at hswill monitor Essential hypertension 50699262 I10 doxazosin 1 mg dailycloni dine 0.2 mg bidlisinop ril 20 mg dailywill monitor SARS-CoV-2 507142484 U07 .1 diagnosed 11/11/19rec overedwill continue to monitor Seizure disorder 4220509 02 G40.909 levetirace munoz 1000 mg bidwill monitor levels Mixed anxi ety and depressive disorder 812272496 F41.8 clonazepam 0.5 mg daily at hsduloxeti ne 30 mg bid and 60 mg at hsgabapent in 1200 mg tidclonidi ne 0.2 mg bidwill monitorpsy ch prn Primary insomnia 3489929 F51.01 zolpidem 5 mg at hs prnwill monitor Restless legs 81337769 G 25.81 ropinirole 0.5 mg at hswill monitor [id number] EM NAIR PA-C [facility] on [address] [place] [address] [phone] 3 04/26/2021 11:34:17 04/28/2021 11:23:08 Peripheral neuropathy due to type 2 diabetes mellitus 5575175259 107 E11.42 Lantus 10 ux SQ q am and 35 ux SQ qhsTrulici ty 1.5 mg SQ q SaturdayMetf ormin 1 g po bidCorrect ional HumalogOn NATALI-I for renal protection Gastroesop hageal reflux disease without esophagitis 563352626 K21.9 Prilosec 20 mg po q am Restless legs 74314389 G 25.81 Requip 0.5 mg po qhs Health Concerns Section Related Observation LastModified by Organization Detai ls LastModified Time None Recorded Concern Status LastModified by Organization Details LastModified Time None Recorded Advance Directives Directive Y: Full code Payers Encounter Date Sequence Insurance Name Policy Number Policy Salguero Covered Member ID Salguero Member ID Guarantor Name 02/28/2021 1 [place] Yesika Farr [id number] Yesika Farr 03/13/2021 1 [place] Yesika Farr [id number] Yesika Farr 04/10/2021 1 [place] Yesika Farr [id number] Yesika Farr 04/21/2021 1 [place] Yesika Farr [id number] Yesika Farr 04/26/2021 1 [place] Yesika Farr [id number] Yesika Farr Notes Date Note Type Note Provider Name and Address Organization Details Recorded Time 02/28/2021 text/html 45 yo female LTC resident seen for acute rounding. Patient reports difficulty sleeping despite receiving Ambien at bedtime. Also receives scheduled Clonazepam in evening currently. Kristi chavez [employer] 02/28/2021 10:06:20 03/13/2021 text/html pt seen today fo r acute rounding. pt is c/o pain on her left abd roll under her left breast. has no pain in left breast. pt says it doesn't bother her at all when she is lying down in bed. just when she is sitting up. otherwise no concerns per nursing. Shaylee Lowry, ENGINE MAINTENANCE MECHANIC [address], [address], [place], [address], [employer] 03/13/2021 11:29:20 04/10/2021 text/html 45 yo female LTC resident seen for acute rounding. Patient c/o pain of L ear. Reports recently cleaning ear with Q-tip. 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 MOLST: full code BIMAL NGUYEN [address], [address], [place], [address], [facility] [employer] 04/21/2021 12:29:56 04/26/2021 text/html Pt seen today [...] externa; Hypomagnesemia; [facility]eropthalmia [facility] Patient Received From: [facility] Attending MD: Dr. Jose A Lassiter [...] diabetes meds adjusted. 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 Discharging today under MFA waiver program to her own apartment. Home Health Certification: Dx as above; Seen this am by [facility]-registered Em Nair PA-C NPI# [id number]; Last MD visit 02/20/21; custodial for medication management and reconciliation and teaching, [...] per PCP discretion Services Ordered at Discharge: [facility] Diet: allergic to tomato; carb controlled; regular texture; thin liquids Activity: w/c and 2 wheeled walker as tolerated Pt says, I'm movin' on up (sung like the Florian's theme song.) No complaints. Very excited to be going to her own apartment. Nurse reports pt has been demonstrating competent management of her diabetes/insulin. EM NAIR PA-C [address], [address], [place], [address], [employer] 04/26/2021 22:00:55 OBGyn Episode No OBEpisode recorded.
--- OUTSIDE RECORDS SUMMARY | 2024-09-24 19:41 | XMS_ITS | Encounter Summary ---
Author Organization [employer] Address 75 [facility] 7t [place] [address] Care Team Providers Care Cdl Driver Name Role Phone Cathy Gerber Primary Care Provider [phone] Encounter Details Date Type Department Care Team (Latest Contact Info) Description 09/24/2024 Travel Social History Tobacco Use Types Packs/Day Years [...] t he electric, gas, oil or water [employer] threatened to shut off services in your [...] Description 10/23/2024 2:30 PM EDT Office Visit [facility] [address] [place] [address] Cathy Gerber ANP [address] [place] [address] documented as of this encounter Visit Diagnoses Not on filedocumented in this encounter Additional Health Concerns Assessment Noted Time PHQ-9 Depression Total Score: 0 09/12/19 24 10:17 AM EST documented as of this encounter Care Teams Cdl Driver Relationship Specialty Start Date End Date Cathy Gerber ANP [address] [place] [address] PCP - General Family Medicine 06/28/22 documented as of this encounter
--- OUTSIDE RECORDS SUMMARY | 2024-09-24 19:41 | XMS_ITS | Encounter Summary ---
Author Organization [employer] Address 75 [facility] 7t [place] [address] Care Team Providers Care Body Man Name Role Phone Cathy Gerber Primary Care Provider [phone] Reason for Visit * Reason Onset Date Comments Appointment 09/23/2024 Encounter Details Date Type Department Care Team ([facility] st Contact Info) Description 09/23/2024 Telephone [facility] [address] [place] [address] Cathy Gerber ANP [address] [place] [address] Appointment Social History Tobacco Use Types Packs/Day Years [...] Telephone Encounter - Shelly Victoria RN - 09/23/2024 2:40 PM EST called pt to triage, spoke to pt. pt states several days duration of yellow vaginal discharge, itching, irritation, and strong odor. pt denies sores, fever, new exposures, urinary symptoms, or bleeding. advised home care: rest, fluids, warm tub baths, avoid strong soaps or new products, and call back as needed. given appt tomorrow with Eliezer Meyers at 10:15 for exam. pt understands and agrees with plan. insurance verified. Protocol Used: Vaginal Discharge (Adult) Protocol-Based Disposition: See in Office or Video Visit within 3 Days Positive Triage Questions: * Bad smelling vaginal discharge * Abnormal color vaginal discharge (i.e., yellow, green, robles) * All higher-acuity triage questions were negative Care Advice Discussed: * Note to Triager - Vaginal Discharge * Reassurance and Education - Normal Vaginal Discharge * Genital Hygiene * Reasons To Call Back - Discharge becomes yellow or green - Discharge becomes foul smelling or itchy - Fever or abdomen pain occur - You become worse * Telephone Encounter - Ana Hickey 09/23/2024 2:33 PM EST Symptom: Earache Outcome: Schedule a same-day appointment or talk to a nurse or provider today Reason: Caller denied all higher acuity questions The caller accepted this outcome. * Telephone Encounter - Peace Padgett RN - 09/23/2024 2:01 PM EST TC incoming from pt on critical line. Requesting call back for appt request, pt believes she may have a vaginal bacterial infection. documented in this encounter Plan of Treatment Upcoming Encounters Date Type Department Care Team (Late st Contact Info) Description 10/23/2024 2:30 PM EDT Office Visit [facility] [address] [place] [address] Cathy Gerber ANP [address] [place] [address] documented as of this encounter Visit Diagnoses Not on filedocumented in this encounter Additional Health Concerns Assessment Noted Time PHQ-9 Depression Total Score: 0 09/12/19 24 10:17 AM EST documented as of this encounter Care Teams Body Man Relationship Specialty Start Date End Date Cathy Gerber ANP [address] [place] [address] PCP - General Family Medicine 06/28/22 documented as of this encounter
--- OUTSIDE RECORDS SUMMARY | 2024-09-24 19:41 | XMS_ITS | Encounter Summary ---
Author Organization [employer] Address 75 [facility] 7t [place] [address] Care Team Providers Care Color Artist Name Role Phone Cathy Gerber Primary Care Provider [phone] Reason for Visit * Reason Comments [facility] Encounter Details Date Type Department Care Team (Late st Contact Info) Description 09/24/2024 Patient Outreach [facility] [address] [place], [place] [phone] Britton Nair Recovery Supports Social History Tobacco Use Types Packs/Day Years [...] AM EDT documented as of this encounter Progress Notes * Britton Nair - 09/24/2024 3:16 PM EST I met with Yesika whitney. Setting: in person at [facility] Wellness Goals worked on: Social Stability Action taken/next steps: Attended alcohol and drug free activity Additional comments: Today, participant Yesika Farr was at the recovery center. Britton Nair documented in this encounter Plan of Treatment Upcoming Encounters Date Type Department Care Team (Late st Contact Info) Description 10/23/2024 2:30 PM EDT Office Visit [facility] [address] [place] [address] Cathy Gerber ANP [address] [place] [address] documented as of this encounter Visit Diagnoses Not on filedocumented in this encounter Additional Health Concerns Assessment Noted Time PHQ-9 Depression Total Score: 0 09/12/19 24 10:17 AM EST documented as of this encounter Care Teams Color Artist Relationship Specialty Start Date End Date Cathy Gerber ANP [address] [place] [address] PCP - General Family Medicine 06/28/22 documented as of this encounter
--- OUTSIDE RECORDS SUMMARY | 2024-09-24 19:41 | XMS_ITS | Encounter Summary ---
Author Organization [employer] Address 75 [facility] 7t [place] [address] Care Team Providers Care Bend Up Name Role Phone Cathy Gerber Primary Care Provider [phone] Reason for Visit * Reason Onset Date Comments Durable Medical Equipment 09/16/2024 Encounter Details Date Type Department Care Team ([facility] st Contact Info) Description 09/16/2024 Telephone [facility] 230 [place], [place] [phone] Cathy Gerber ANP [address] [place] [address] Durable Medical Equipment Social History Tobacco Use Types Packs/Day Years [...] encounter Miscellaneous Notes * Telephone Encounter - Riky Kraft [place] - 09/21/2024 8:27 AM EST Form has been signed by the PCP and faxed . Form is sent in for scanning. * Telephone Encounter - Marina Hinson - 09/16/2024 3:32 PM EST Returned call to pt and lvm requesting call back to confirm request for gloves as duplicate requests have been received for different sizes. Pending pt call back and also approval from pcp. * Telephone Encounter - Yara Rodriguez - 09/16/2024 1:08 PM EST Tc lilly Carpenter with [employer] requesting 4x boxes of gloves per month size large documented in this encounter Plan of Treatment Upcoming Encounters Date Type Department Care Team (Late st Contact Info) Description 10/23/2024 2:30 PM EDT Office Visit [facility] [address] [place] [address] Cathy Gerber ANP [address] [place] [address] documented as of this encounter Visit Diagnoses Not on filedocumented in this encounter Additional Health Concerns Assessment Noted Time PHQ-9 Depression Total Score: 0 09/12/19 24 10:17 AM EST documented as of this encounter Care Teams Bend Up Relationship Specialty Start Date End Date Cathy Gerber ANP [address] [place] [address] PCP - General Family Medicine 06/28/22 documented as of this encounter
--- OUTSIDE RECORDS SUMMARY | 2024-09-24 19:41 | XMS_ITS | Encounter Summary ---
Author Organization [employer] [facility] Address [address] [place] [address] 7t [place] [address] Care Team Providers Care Automatic Clipper And Stripper Name Role Phone Cathy Gerber Primary Care Provider Encounter Details Date Type Department Care Team (Late st Contact Info) Description 08/30/[address] [facility] [address] [place] [address] Cathy Gerber ANP [address] [place] [address] Social History Tobacco Use Types Packs/Day Years [...] Description 10/23/2024 2:30 PM EDT Office Visit [facility] [address] [place] [address] Cathy Gerber ANP [address] [place] [address] documented as of this encounter Visit Diagnoses Not on filedocumented in this encounter Care Teams Automatic Clipper And Stripper Relationship Specialty Start Date End Date Cathy Gerber ANP [address] [place] [address] PCP - General Family Medicine 06/28/22 documented as of this encounter
--- OUTSIDE RECORDS SUMMARY | 2024-09-24 19:41 | XMS_ITS | Encounter Summary ---
Author Organization [employer] Address 75 [facility] 7t [place] [address] Care Team Providers Care Basic Combatant Swimmer Name Role Phone Cathy Gerber Primary Care Provider [phone] Reason for Visit * Reason Onset Date Comments Durable Medical Equipment 09/15/2024 Encounter Details Date Type Department Care Team ([facility] st Contact Info) Description 09/15/2024 Telephone [facility] [address] [place], [place] [phone] Cathy Gerber ANP [address] [place] [address] Durable Medical Equipment Social History Tobacco Use [...] encounter Miscellaneous Notes * Telephone Encounter - Marina Hinson - 09/16/2024 9:41 AM EST Pt requesting dme gloves. If agree with dme, please provide dx and notes to support the need. * Telephone Encounter - Prosper Gaitan - 09/15/2024 1:53 PM EST Tc from pt requesting DME for Gloves Medium. Contact pt at [phone] documented in this encounter Plan of Treatment Upcoming Encounters Date Type Department Care Team (Late st Contact Info) Description 10/23/2024 2:30 PM EDT Office Visit [facility] [address] [place] [address] Cathy Gerber ANP [address] [place] [address] documented as of this encounter Visit Diagnoses Not on filedocumented in this encounter Additional Health Concerns Assessment Noted Time PHQ-9 Depression Total Score: 0 02/22/20 24 10:17 AM EST documented as of this encounter Care Teams Basic Combatant Swimmer Relationship Specialty Start Date End Date Cathy Gerber ANP [address] [place] [address] PCP - General Family Medicine 06/28/22 documented as of this encounter
--- OUTSIDE RECORDS SUMMARY | 2024-09-24 19:41 | XMS_ITS | Encounter Summary ---
Author Organization [employer] Address [address] [place] [address] 7t [place] [address] Care Team Providers Care Process Control Manager Name Role Phone Cathy Gerber Primary Care Provider [phone] Reason for Visit * Reason Onset Date Comments Med Refill 07/05/2023 Encounter Details Date Type Department Care Team (Late st Contact Info) Description 07/05/[address] [facility] [address] [place] [address] Cathy Gerber ANP [address] [place] [address] Gastroesophageal reflux disease, unspecified whether esophagitis present [...] - 07/05/2023 1:48 PM EST Tc from acute care registered nurse requesting medication refill for glucose blood (FREESTYLE LITE) test strip,Lancets 33G misc and omeprazole (PriLOSEC) [address] capsule documented in this encounter Plan of Treatment Upcoming Encounters Date Type Department Care Team (Late st Contact Info) Description 10/23/2024 2:30 PM EDT Office Visit [facility] [address] [place] [address] Cathy Gerber ANP [address] [place], [place] [phone] documented as of this encounter Visit Diagnoses Diagnosis Gastroesophageal reflux disease, unspecified whether esophagitis present documented in this encounter Care Teams Process Control Manager Relationship Specialty Start Date End Date Cathy Gerber ANP [address] [place] [phone] PCP - General Family Medicine 06/28/22 documented as of this encounter
--- OUTSIDE RECORDS SUMMARY | 2024-09-24 19:41 | XMS_ITS | Encounter Summary ---
Author Organization [employer] Address 75 [facility] 7t [place] [address] Care Team Providers Care Cigar Wrapper Name Role Phone Cathy Gerber Primary Care Provider [phone] Reason for Visit * Reason Onset Date Comments Referral 09/15/2024 Encounter Details Date Type Department Care Team ([facility] st Contact Info) Description 09/15/2024 Telephone [facility] 230 [place], [place] [phone] Cathy Gerber ANP [address] [place] [address] Referral Social History Tobacco Use Types Packs/Day Years [...] encounter Miscellaneous Notes * Telephone Encounter - Prosper Gaitan - 09/15/2024 1:45 PM EST Tc from pt requesting a New eferral for Neurology. Pt would like if Possible to get a Doctor in [place] Instead of [place]. Contact pt at [phone] documented in this encounter Plan of Treatment Upcoming Encounters Date Type Department Care Team (Late st Contact Info) Description 10/23/2024 2:30 PM EDT Office Visit [facility] [address] [place] [address] Cathy Gerber ANP [address] [place] [address] documented as of this encounter Visit Diagnoses Not on filedocumented in this encounter Additional Health Concerns Assessment Noted Time PHQ-9 Depression Total Score: 0 09/12/19 24 10:17 AM EST documented as of this encounter Care Teams Cigar Wrapper Relationship Specialty Start Date End Date Cathy Gerber ANP [address] [place] [address] PCP - General Family Medicine 06/28/22 documented as of this encounter
--- OUTSIDE RECORDS SUMMARY | 2024-09-24 19:41 | XMS_ITS | Encounter Summary ---
Author Organization [employer] Address 75 [facility] 7t [place] [address] Care Team Providers Care Padded Box Sewer Name Role Phone Cathy Gerber MICHAEL Primary Care Provider Reason for Visit * Reason Comments Med Refill Encounter Details Date Type Department Care Team ([facility] st Contact Info) Description 07/08/2024 Refill [facility] [address] [place] [address] Sudhakar Bustillos, IRWIN [address] [place] [address] Social History Tobacco Use Types Packs/Day Years [...] Description 10/23/2024 2:30 PM EDT Office Visit [facility] [address] [place] [address] Cathy Gerber ANP 230 [place] [address] documented as of this encounter Visit Diagnoses Not on filedocumented in this encounter Additional Health Concerns Assessment Noted Time PHQ-9 Depression Total Score: 0 09/12/19 24 10:17 AM EST documented as of this encounter Care Teams Padded Box Sewer Relationship Specialty Start Date End Date Cathy Gerber ANP [address] [place] [address] PCP - General Family Medicine 06/28/22 documented as of this encounter
--- OUTSIDE RECORDS SUMMARY | 2024-09-24 19:41 | XMS_ITS | Encounter Summary ---
Author Organization [employer] [facility] Address [address] [place] [address] 7t [place] [address] Care Team Providers Care Maintenance Inspector Name Role Phone Jennifer Mckenzie DO Primary Care Provider [phone] Cathy Gerber Primary Care Provider [phone] Encounter Details Date Type Department Care Team (Latest Contact Info) Description 05/18/2021 Abstract [facility] CONVERSIONS Dental, Provider, DDS Social History Tobacco [...] Description 10/23/2024 2:30 PM EDT Office Visit [facility] 230 [place] [address] Cathy Gerber ANP [address] [place] [address] documented as of this encounter Visit Diagnoses Not on filedocumented in this encounter Care Teams Maintenance Inspector Relationship Specialty Start Date End Date Jennifer Mckenzie DO [address] [address] PCP - General Family Medicine 04/06/22 06/27/22 Cathy Gerber ANP [address] [address] PCP - General Family Medicine 06/28/22 documented as of this encounter
--- OUTSIDE RECORDS SUMMARY | 2024-09-24 19:41 | XMS_ITS | Encounter Summary ---
Author Organization [employer] Address [address] [place] [address] 7t [place] [address] Care Team Providers Care Community Engagement Coordinator Name Role Phone Cathy Gerber MICHAEL Primary Care Provider [phone] Reason for Referral * Imaging (Routine) - Closed Specialty Diagnoses / Procedures Referred By Smitha hernandez Referred To Contact Radiology Diagnoses Breast cancer screening by mammogram Procedures BI Mammogram Screening Tomosynthesis Bilateral Lilian Meyers CNM [address] [place] [address] Phone: tel: fax: [address] Phone: tel: fax: Referral ID Status Reason Start Date Expiration Date Visits Re quested Visits Authorized [id number] Closed 09/24/2024 09/24/2025 1 1 Encounter Details Date Type Department Care Team (Late st Contact Info) Description 09/24/2024 10:15 AM EST Office Visit [facility] [address] [place], [place] [phone] Lilian Meyers CNM [address] [place], [place] [phone] Vaginal discharge (Primary Dx); Routine cervical smear; Breast cancer screening by mammogram Social History Tobacco Use Types Packs/Day Years [...] AM EDT documented as of this encounter Last Filed Vital Signs Vital Sign Reading Time Taken Comments Blood Pressure 139/90 09/24/2024 9:41 AM EST Pulse 81 09/24/2024 9:41 AM EST Temperature 36.3 ??C (97.4 ??F) 09/24/2024 9:41 AM ES T Respiratory Rate 18 09/24/2024 9:41 AM EST Oxygen Saturation 98% 09/24/2024 9:41 AM EST Inhaled Oxygen Concentration - - Weight 90 kg (198 lb 6.4 oz) 09/24/2024 9:41 AM EST Height 144.8 cm (4' 9 ) 09/24/2024 9:41 AM EST Body Mass Index 42.93 09/24/2024 9:41 AM EST documented in this encounter Progress Notes * Lilian Meyers CNM - 09/24/2024 10:15 AM EST Subjective Patient ID: Yesika Farr is a 48 y.o. female who presents for vaginal symptoms Notes new onset vaginal discharge, itching and odor. Not sexually active in past 10 months. No urinary symptoms. LMP 09/14/2023. Treated for bacterial vaginosis/trichomonas 12/2023. Gonorrhea/Chlamydianegative from that visit. Has tubal ligation. No pap on file. Agrees to pap and pap based STI testing today. Due for mammogram. Review of Systems Constitutional: Negative for chills and fatigue. Genitourinary: Positive for vaginal discharge. Negative for dysuria, hematuria, menstrual problem, pelvic pain and vaginal pain. Objective BP (!) 139/90 (BP Location: Left arm, Patient Position: Sitting, BP Cuff Size: Adult) Pulse 81 Temp 97.4 ??F (36.3 ??C) (Temporal) Resp 18 Ht 4' 9 (1.448 m) Wt 198 lb 6.4 oz (90 kg) JiT738% BMI 42.93 kg/m?? Physical Exam Constitutional: Appearance: Normal appearance. Genitourinary: General: Normal vulva. Labia: Right: No rash, tenderness, lesion or injury. Left: No rash, tenderness, lesion or injury. Vagina: No signs of injury and foreign body. Vaginal discharge present. No erythema, tenderness, bleeding, lesions or prolapsed vaginal garza. Cervix: Normal. No cervical motion tenderness, discharge, friability, lesion, erythema, cervical bleeding or eversion. Uterus: Not enlarged and not tender. Adnexa: Right: No mass, tenderness or fullness. Left: No mass, tenderness or fullness. Comments: Limited view of cervix. Neurological: Mental Status: She is alert. Psychiatric: Mood and Affect: Mood normal. Behavior: Behavior normal. Assessment/Plan Diagnoses and all orders for this visit: Vaginal discharge - POCT fern test, vaginal fluid manually resulted - STI testing add on (NG, CT, Trich) Suggestive of yeast, few buds. Will treat with terconazole. Let me know if symptoms persist/worsen. Pap based STI testing sent as well with her consent and as followup on trichomonas. Routine cervical smear - Pap Smear Cotest today. Repeat 5 year if normal. Breast cancer screening by mammogram - BI Mammogram Screening Tomosynthesis Bilateral; Future Mammogram ordered. Other orders - terconazole (Terazol 7) 0.4 % vaginal cream; Insert 1 applicator into the vagina at bedtime for 7days. documented in this encounter Plan of Treatment Upcoming Encounters Date Type Department Care Team (Late st Contact Info) Description 10/23/2024 2:30 PM EDT Office Visit [facility] [address] [place], [place] [phone] Cathy Gerber, ANP [address] [place] [address] Scheduled Orders Name Type Priority Associated Diagnoses Order Schedule Pap Smear Pathology and Cytology Routine Routine cervical smear Ordered: 09/24/2024 STI testing add on (NG, CT, Trich) Pathology and Cytology Routine Vaginal discharge Ordered: 09/24/2024 BI Mammogram Screening Tomosynthesis Bilateral Imaging Routine Breast cancer screening by mammogram Expected: 09/24/2024, Expires: 11/24/2025 documented as of this encounter Procedures Procedure Name Priority Date/Time Associated Diagnosis Comments POCT WET MOUNT/LULU Routine 09/24/2024 11 :55 AM EST Vaginal discharge documented in this encounter Results * POCT fern test, vaginal fluid manually resulted (09/24/2024 11:55 AM EST) LULU Prep Positive Comment:pH 4.5, few buds, ne g clue, neg whiff, neg wbc, neg trich Vaginal Fluid Vaginal structure / Unknown 09/24/2024 11:55 AM EST Impressions Lilian Meyers CNM - 09/24/2024 11:55 AM EST yeast Lilian Meyers CNM POINT OF CARE TEST ENTER/ EDIT ORDERABLES Final Result documented in this encounter Visit Diagnoses Diagnosis Vaginal discharge- Primary Leukorrhea, not specified as infective Routine cervical smear Screening for malignant neoplasm of the cervix Breast cancer screening by mammogram documented in this encounter Additional Health Concerns Assessment Noted Time PHQ-9 Depression Total Score: 0 09/12/19 10:17 AM EST documented as of this encounter Care Teams Community Engagement Coordinator Relationship Specialty Start Date End Date Cathy Gerber ANP [address] [place] [address] PCP - General Family Medicine 06/28/22 documented as of this encounter
--- OUTSIDE RECORDS SUMMARY | 2024-09-24 19:41 | XMS_ITS | Encounter Summary ---
Author Organization [employer] Address 75 [facility] 7t [place] [address] Care Team Providers Care Customer Retention Representative Name Role Phone Cathy Gerber Primary Care Provider [phone] Reason for Visit * Reason Comments Med Refill Encounter Details Date Type Department Care Team ([facility] Contact Info) Description 03/09/2024 Refill [facility] [address] [place], [place] [phone] Lilian Meyers, ERIKA [address] [place] [address] Social History Tobacco Use Types Packs/Day Years [...] Description 10/23/2024 2:30 PM EDT Office Visit [facility] [address] [place] [address] Cathy Gerber ANP [address] [place] [address] documented as of this encounter Visit Diagnoses Not on filedocumented in this encounter Additional Health Concerns Assessment Noted Time PHQ-9 Depression Total Score: 0 09/12/19 24 10:17 AM EST documented as of this encounter Care Teams Customer Retention Representative Relationship Specialty Start Date End Date Cathy Gerber ANP [address] [place] [address] PCP - General Family Medicine 06/28/22 documented as of this encounter
--- OUTSIDE RECORDS SUMMARY | 2024-09-24 19:41 | XMS_ITS | Encounter Summary ---
Author Organization [employer] Address [address] [facility] 7t [place] [address] Care Team Providers Care Solar Sales Associate Name Role Phone Cathy Gerber Primary Care Provider [phone] Reason for Visit * Reason Comments Med Refill Encounter Details Date Type Department Care Team ([facility] st Contact Info) Description 08/31/2024 Refill [facility] MEDICINE [address] [place], [place] [phone] Cathy Gerber ANP [address] [place] [address] Type 2 diabetes mellitus with other specified complication, with long-term current use of insulin ([facility]); Primary hypertension Social History Tobacco Use Types Packs/Day Years [...] Description 10/23/2024 2:30 PM EDT Office Visit [facility] MEDICINE [address] [place] [address] Cathy Gerber ANP [address] [place] [address] documented as of this encounter Visit Diagnoses Diagnosis Type 2 diabetes mellitus with other specified complication, with long-term current use of insulin ([facility]) Primary hypertension Unspecified essential hypertension documented in this encounter Additional Health Concerns Assessment Noted Time PHQ-9 Depression Total Score: 0 09/12/19 24 10:17 AM EST documented as of this encounter Care Teams Solar Sales Associate Relationship Specialty Start Date End Date Cathy Gerber ANP [address] [place] [address] PCP - General Family Medicine 06/28/22 documented as of this encounter
--- OUTSIDE RECORDS SUMMARY | 2024-09-24 19:41 | XMS_ITS | Clinical Summary ---
Author Organization [employer] [facility] ity Address [address] [place] [address] Care Team Providers Care Multicultural Services Librarian Name Role Phone Cathy Gerber NP Primary Care Provider [phone] Social History Tobacco Use Types Packs/Day Years Used Date Smoking Tobacco: Never Assessed Comments Unknown Sex and Gender Information Value Date Recorded Sex Assigned at Not on file Legal Sex Female 9:05 AM EST Gender Identity Not on file Sexual Orientation Not on file Plan of Treatment Health Maintenance Due Date Last Done Comments Breast Cancer Screening 1977 Diabetes: Annual GFR (Glomer ular Filtration Rate) 1977 Diabetes: Annual Foot Exam 12/13/1987 Diabetes: Annual Retina Eye Exam 12/13/1987 DTaP,Tdap,and Td Vaccines (1 - Tdap) 1996 Hepatitis A Vaccines (1 of 2 - Risk 2-dose series) 1996 Hepatitis B Vaccines (1 of 3 - 19+ 3-dose series) 1996 Pneumococcal Vaccine: Pediat rics (0 to 5 Years) and At-Risk Patients (6 to 64 Years) (1 of 2 - PCV) 1996 Cervical Cancer Screening: P ap Smear [...] patient's age to complete this topic Meningococcal B Vacine Aged Out No lo nger eligible based on patient's age to complete this topic RSV Immunization Patients Un che[place] 20 months Aged Out No longer eligible b ased on patient's age to complete this topic Varicella Vaccines Aged Out No longer eligible based on patient's age to complete this topic Care Teams Multicultural Services Librarian Relationship Specialty Start Date End Date Cathy Gerber NP [address] [place] [phone] PCP - General 09/19/23
--- OUTSIDE RECORDS SUMMARY | 2024-09-24 19:41 | XMS_ITS | Encounter Summary ---
Author Organization [employer] [facility] Address [address] [place] [address] 7t [place] [address] Care Team Providers Care Fermenting Cellars Receiver Name Role Phone Cathy Gerber Primary Care Provider [phone] Reason for Visit * Reason Comments Med Change Request Encounter Details Date Type Department Care Team ([facility] Contact Info) Description 08/20/2023 Refill [facility] MEDICINE [address] [place] [phone] Cathy Gerber ANP [address] [place] [phone] Seizure disorder (CMS/HCC) Social History Tobacco Use [...] Description 10/23/2024 2:30 PM EDT Office Visit [facility] MEDICINE [address] [place] [address] Cathy Gerber ANP [address] [place] [address] documented as of this encounter Visit Diagnoses Diagnosis Seizure disorder (CMS/HCC) Unspecified epilepsy without mention of intractable epilepsy documented in this encounter Care Teams Fermenting Cellars Receiver Relationship Specialty Start Date End Date Cathy Gerber ANP [address] [place] [phone] PCP - General Family Medicine 06/28/22 documented as of this encounter
--- OUTSIDE RECORDS SUMMARY | 2024-09-24 19:41 | XMS_ITS | Encounter Summary ---
Author Organization [employer] Address [address] [facility] 7t [place] [address] Care Team Providers Care Green End Man Name Role Phone Cathy Gerber Primary Care Provider [phone] Reason for Visit * Reason Onset Date Comments Referral 09/16/2024 Encounter Details Date Type Department Care Team ([facility] st Contact Info) Description 09/16/2024 Telephone [facility] MEDICINE [address] [place], [place] [phone] Cathy Gerber ANP [address] [place] [address] Referral Social History Tobacco Use Types Packs/Day [...] encounter Miscellaneous Notes * Telephone Encounter - Sherrill Hanks RN - 09/16/2024 1:48 PM EST Pt called requesting this yesterday. It is being worked on in another encounter. * Telephone Encounter - Yara Rodriguez - 09/16/2024 1:03 PM EST Tc from [facility] with [facility] requesting a referral for a neurology in regards pt seizures. [facility] [phone] documented in this encounter Plan of Treatment Upcoming Encounters Date Type Department Care Team (Late st Contact Info) Description 10/23/2024 2:30 PM EDT Office Visit [facility] MEDICINE [address] [place], [place] [phone] Cathy Gerber ANP [address] [place] [address] documented as of this encounter Visit Diagnoses Not on filedocumented in this encounter Additional Health Concerns Assessment Noted Time PHQ-9 Depression Total Score: 0 09/12/19 24 10:17 AM EST documented as of this encounter Care Teams Green End Man Relationship Specialty Start Date End Date Cathy Gerber ANP [address] [place] [address] PCP - General Family Medicine 06/28/22 documented as of this encounter
--- OUTSIDE RECORDS SUMMARY | 2024-09-24 19:41 | XMS_ITS | Encounter Summary ---
Author Organization [facility] Address [address] [place] [address] [address]t [place] [address] Care Team Providers Care Picked Edge Sewing Machine Operator Name Role Phone Cathy Gerber Primary Care Provider [phone] Encounter Details Date Type Department Care Team (Late st Contact Info) Description 09/12/2022 Abstract [facility] MEDICINE [address] [place] [phone] Cathy Gerber ANP [address] [place] [address] Social History Tobacco Use Types Packs/Day Years [...] Description 10/23/2024 2:30 PM EDT Office Visit [facility] [address] [place] [address] Cathy Gerber ANP [address] [place] [address] documented as of this encounter Visit Diagnoses Not on filedocumented in this encounter Care Teams Picked Edge Sewing Machine Operator Relationship Specialty Start Date End Date Cathy Gerber ANP [address] [place] [id number] PCP - General Family Medicine 06/28/22 documented as of this encounter
--- OUTSIDE RECORDS SUMMARY | 2024-09-24 19:41 | XMS_ITS | Encounter Summary ---
Author Organization [employer] [facility] Address [address] [place] [address] 7t [place] [address] Care Team Providers Care Division Head Name Role Phone Cathy Gerber Primary Care Provider Encounter Details Date Type Department Care Team (Late st Contact Info) Description 07/02/2022 Orders Only [facility] MEDICINE [address] [place] [phone] Jennifer Steel, RN [address] [place] [address] Social History Tobacco Use Types Packs/Day Years [...] Description 10/23/2024 2:30 PM EDT Office Visit [facility] MEDICINE [address] [place] [address] Cathy Gerber ANP [address] [place] [address] documented as of this encounter Visit Diagnoses Not on filedocumented in this encounter Care Teams Division Head Relationship Specialty Start Date End Date Cathy Gerber ANP [address] [place] [phone] PCP - General Family Medicine 06/28/22 documented as of this encounter
--- OUTSIDE RECORDS SUMMARY | 2024-09-24 19:41 | XMS_ITS | Encounter Summary ---
Author Organization [facility] Address [address] [facility] 7t [place] [address] Care Team Providers Care Stave Cutter Name Role Phone Cathy Gerber Primary Care Provider [phone] Reason for Visit * Reason Onset Date Comments Appointment Request 04/24/2024 Encounter Details Date Type Department Care Team ([facility] Contact Info) Description 04/24/2024 Telephone [facility]INE [address] [place], [place] [phone] Cathy Gerber ANP [address] [place] [address] Appointment Request Social History Tobacco Use Types [...] patient calling to reschedule appt from 04/24 play writer did attempt to reschedule however thereis no availability documented in this encounter Plan of Treatment Upcoming Encounters Date Type Department Care Team (Late st Contact Info) Description 10/23/2024 2:30 PM EDT Office Visit [facility] [address] [place] [address] Cathy Gerber ANP [address] [place] [address] documented as of this encounter Visit Diagnoses Not on filedocumented in this encounter Additional Health Concerns Assessment Noted Time PHQ-9 Depression Total Score: 0 09/12/19 24 10:17 AM EST documented as of this encounter Care Teams Stave Cutter Relationship Specialty Start Date End Date Cathy Gerber ANP [address] [place] [id number] PCP - General Family Medicine 06/28/22 documented as of this encounter
--- OUTSIDE RECORDS SUMMARY | 2024-09-24 19:41 | XMS_ITS | Encounter Summary ---
Author Organization [employer] Address [address] [facility] 7t [place] [address] Care Team Providers Care Construction Recruiter Name Role Phone Cathy Gerber Primary Care Provider [phone] Reason for Visit * Reason Onset Date Comments Prior Authorization 10/07/2023 Encounter Details Date Type Department Care Team ([facility] st Contact Info) Description 10/07/2023 Telephone [facility] MEDICINE [address] [place], [place] [phone] Cathy Gerber ANP [address] [place] [address] Prior Authorization Social History Tobacco Use Types [...] Audra Vasquez - 10/16/2023 1:55 PM EDT TIGHTENING MACHINE OPERATOR SPOKE WITH PATIENT NOTIFIED SHE WAS APPROVE FOR THE [employer] 2 READER AND SENSOR, ADVICE TO CALL [...] 50 MG capsule. To be sent to: [id number] documented in this encounter Plan of Treatment Upcoming Encounters Date Type Department Care Team (Late st Contact Info) Description 10/23/2024 2:30 PM EDT Office Visit [facility] MEDICINE [address] [place] [address] Cathy Gerber ANP [address] [place] [address] documented as of this encounter Visit Diagnoses Not on filedocumented in this encounter Additional Health Concerns Assessment Noted Time PHQ-9 Depression Total Score: 0 09/12/19 24 10:17 AM EST documented as of this encounter Care Teams Construction Recruiter Relationship Specialty Start Date End Date Cathy Gerber ANP [address] [place] [address] PCP - General Family Medicine 06/28/22 documented as of this encounter
--- OUTSIDE RECORDS SUMMARY | 2024-09-24 19:41 | XMS_ITS | Encounter Summary ---
Author Organization [employer] Address [address] [facility] 7t [place] [address] Care Team Providers Care Clutch Operator Name Role Phone Cathy Gerber Primary Care Provider [phone] Reason for Visit * Reason Comments Med Refill Encounter Details Date Type Department Care Team ([facility] st Contact Info) Description 09/24/2024 Refill [facility] MEDICINE [address] [place], [place] [phone] Cathy Gerber ANP [address] [place] [address] Hypertension associated with diabetes (CMS/HCC) (CMS/HCC) Social History Tobacco Use Types Packs/Day [...] Description 10/23/2024 2:30 PM EDT Office Visit [facility] MEDICINE [address] [place] [address] Cathy Gerber ANP [address] [place] [address] documented as of this encounter Visit Diagnoses Diagnosis Hypertension associated with diabetes (CMS/HCC) (CMS/HCC) Unspecified essential hypertension documented in this encounter Additional Health Concerns Assessment Noted Time PHQ-9 Depression Total Score: 0 09/12/19 24 10:17 AM EST documented as of this encounter Care Teams Clutch Operator Relationship Specialty Start Date End Date Cathy Gerber ANP [address] [place] [id number] PCP - General Family Medicine 06/28/22 documented as of this encounter
--- OUTSIDE RECORDS SUMMARY | 2024-09-24 19:41 | XMS_ITS | Clinical Summary ---
Author Organization [employer] Address [address] [facility] 7t [place] [address] Care Team Providers Care Dispatcher Chief Coal Slurry Name Role Phone Kashmir Gaming Primary Care Provider [phone] Allergies Active Allergy Reactions Criticality Noted Date Comments Gramineae Pollens 07/27/2022 Tomato Rash Low 07/31/2023 Medications Blood Glucose Monitoring Suppl (OurStayStyle Lite) w/Device kit 1 kit 3 times daily. 1 kit 023 Active albuterol 108 (90 Base) MCG/ACT inhalerIndication s:COPD exacerbation ([facility]) Inhale 2 puffs every 6 (six) hours if needed for wheezing. 18 g 023 Active hydrOXYzine HCl (Atarax) 25 MG tablet Take 25 mg by mouth if needed in the morning and at bedtime. 023 Active dulaglutide (Trulicity) 3 MG/0.5ML solution pen-injectorIndic ations:Type 2 diabetes mellitus with hyperlipidemia (CMS/HCC) (CMS/[facility]) Inject 3 mg under the skin 1 (one) time per week. 4 each 024 Active Continuous Blood Gluc Hospital Coordinator (FreeStyle Pedro 2 Catlett) deviceIndications :Type 2 diabetes mellitus with hyperlipidemia (CMS/HCC) (CMS/HCC) Scan sensor every 8 hours 1 each 024 Active Continuous Blood Gluc Sensor (FreeStyle Pedro 2 Sensor) miscIndications:T ype 2 diabetes mellitus with hyperlipidemia (CMS/HCC) (CMS/HCC) Apply 1 sensor every 14 days 2 each 024 Active DULoxetine (Cymbalta) [address] capsuleIndication s:Chronic pain syndrome TAKE 1 CAPSULE BY MOUTH EVERY DAY 30 capsule 2 03/28/2 024 Active melatonin 5 MG tablet Take 2 tablets (10 mg) by mouth if needed at bedtime (sleep). 60 tablet Active mirtazapine (Remeron) 7.5 MG tabletIndications :Insomnia, unspecified type TAKE 1 TABLET BY MOUTH EVERYDAY AT BEDTIME 30 tablet 2 Active Alcohol Swabs (B-D SINGLE USE SWABS REGULAR) padsIndications:T ype 2 diabetes mellitus with hyperlipidemia ([facility]/HCC) ([facility]) USE DIRECTED 100 each 024 Active glucose blood (FREESTYLE LITE) test stripIndications: Type 2 diabetes mellitus with hyperlipidemia ([facility]/HCC) ([facility]) USE TO TEST BLOOD SUGAR THREE TIMES A DAY 100 each 11 024 Active DULoxetine (Cymbalta) [address] [...] 35 UNITS EVERY EVENING 15 mL 5 Active insulin lispro (HumaLOG) 100 UNIT/ML injection [...] tabletIndications :Alcohol dependence with unspecified alcohol-induced disorder ([facility]) TAKE 1 TABLET BY MOUTH EVERY DAY [...] levETIRAcetam (Keppra) 1000 MG tabletIndications :Seizure disorder ([facility]) TAKE 1 + 1/2 TABLETS BY MOUTH TWICE A DAY 270 tablet 024 Active magnesium oxide (Mag-Ox) 400 (240 Mg) MG tablet TAKE 1 TABLET BY MOUTH TWICE A DAY 180 tablet 025 Active atorvastatin (Lipitor) 40 MG tabletIndications :Type 2 diabetes mellitus with hyperlipidemia (CMS/HCC) ([facility]) TAKE 1 TABLET BY MOUTH AT BEDTIME 90 tablet 025 Active Aspirin Low Dose 81 MG chewable tabletIndications :Type 2 diabetes mellitus with hyperlipidemia (CMS/HCC) ([facility]) CHEW 1 TABLET BY MOUTH EVERY DAY 90 tablet 025 Active metFORMIN (Glucophage) 1000 MG tabletIndications :Type 2 diabetes mellitus with other specified complication, with long-term current use of insulin ([facility]) TAKE 1 TABLET BY MOUTH TWICE DAILY IN THE MORNING AND IN THE EVENING WITH MEALS 180 tablet 1 025 Active lisinopril 40 MG tabletIndications :Primary hypertension TAKE 1 TABLET BY MOUTH EVERY DAY IN THE MORNING 90 tablet 1 025 Active cloNIDine (Catapres) 0.2 MG tabletIndications :Hypertension associated with diabetes ([facility]/HCC) ([facility]) TAKE 1 TABLET BY MOUTH TWICE A DAY 180 tablet 1 025 Active terconazole (Terazol 7) 0.4 % vaginal cream Insert 1 applicator into the vagina at bedtime for 7 days. 45 g 025 2024 Active metFORMIN (Glucophage) 1000 MG tabletIndications :Type 2 diabetes mellitus with other specified complication, with long-term current use of insulin ([facility]) TAKE 1 TABLET BY MOUTH TWICE DAILY IN THE MORNING AND IN THE EVENING WITH MEALS 180 tablet 3 024 2024 Discontinued glucose blood (FreeStyle Precision Edward Test) test stripIndications: Type 2 diabetes mellitus with hyperlipidemia (CMS/HCC) ([facility]) Use to test blood sugar 5 times daily 100 each 09/12/2 024 2024 lisinopril 40 MG tabletIndications :Primary hypertension TAKE 1 TABLET BY MOUTH EVERY DAY IN THE MORNING 90 tablet 1 024 2024 Discontinued cloNIDine (Catapres) 0.2 MG tabletIndications :Hypertension associated with diabetes (CMS/HCC) (CMS/HCC) TAKE 1 TABLET BY MOUTH TWICE A DAY 180 tablet 1 024 2024 Discontinued Active Problems Problem Noted [...] nodule 05/08/2023 Overview (05/08/2023): -CT abd/pelvis done [facility] 01/16/2023 for RLQ abd pain revealed [...] Encounters Date Type Department Care Team Description 09/24/2024 10:15 AM EST Office Visit [address] [address] Lilian Meyers CNM Vaginal discharge (Primary Dx); Routine cervical smear; Breast cancer screening by mammogram 09/24/2024 Patient Outreach [facility] [address] [place] [address] Britton Nair Recovery Supports 09/24/2024 Travel 09/24/2024 Refill [facility] [address] [place] [address] Kashmir Gaming ANP Hypertension associated with diabetes ([facility]) ([facility]) 09/23/2024 Telephone [facility] [address] [place] [address] Kashmir Gaming ANP Appointment 09/16/2024 Telephone [facility] [address] [place] [address] Kashmir Gaming ANP Durable Medical Equipment 09/16/2024 Telephone [facility] [address] [place] [address] Kashmir Gaming ANP Referral 09/15/2024 Telephone [facility] [address] [place] [address] Kashmir Gaming ANP Durable Medical Equipment 09/15/2024 Telephone [facility] [address] [place] [address] Kashmir Gaming ANP Referral 08/31/2024 Refill [facility] [address] [place] [address] Kashmir Gaming ANP Type 2 diabetes mellitus with other specified complication, with long-term current use of insulin ([facility]); Primary hypertension 07/31/2024 Telephone [facility] [address] [place] [address] Jennifer Mckenzie, DO No Show 07/31/2024 Refill [facility] [address] [place] [address] Kashmir Gaming ANP Type 2 diabetes mellitus with hyperlipidemia ([facility]) 07/30/2024 Telephone [facility] [address] [place] [address] Kashmir Gaming ANP Nurse Triage 07/30/2024 Telephone [facility] [address] [place] [address] Kashmir Gaming ANP Nurse Triage 07/26/2024 Refill [facility] [address] [place] [address] Kashmir Gaming ANP 07/10/2024 Refill [facility] [address] [place] [address] Kashmir Gaming ANP Gastroesophageal reflux disease, unspecified whether esophagitis present; Seizure disorder (CMS/HCC) 07/08/2024 Refill [facility] [address] [place] [address] Sudhakar Bustillos DMD 07/08/2024 Refill [facility] [address] [place] [address] Kashmir Gaming ANP Alcohol dependence with unspecified alcohol-induced disorder (CMS/HCC) 07/08/2024 Refill [facility] [address] [place] [address] Deya Contreras MD 07/07/2024 Telephone [facility] [address] [place] [address] Kashmir Gaming ANP ER Follow-up 07/06/2024 Orders Only GENERIC EXTERNAL DATA DEPARTMENT Provider, Generic External Data 06/29/2024 Orders Only [facility] [address] [place] [address] Lilian Meyers CNM Screening examination for venereal disease (Primary Dx) from Last 3 Months Immunizations Name Administration Dates Next Due Hep B, Unspecified 08/26/2007 Hep B, adult 09/14/2013,06/17/2013,12/20/2011 Influenza injectable quadriv alent preservative free 04/18/2018 Influenza, IIV3, injectable 04/03/2012, 1,04/26/2009 Influenza, Split (incl. robin fied surface antigen) 06/15/2013 Pfizer Covid-19 Vaccine 12+ 08/24/2020, 1 Pneumococcal Conjugate PCV 20 09/12/2023 Pneumococcal Polysaccharide [...] Mass Index 42.93 09/24/2024 9:41 AM EST Plan of Treatment Upcoming Encounters Date Type Department Care Team (Late st Contact Info) Description 10/23/2024 2:30 PM EDT Office Visit [facility] [address] [place], [place] [phone] Kashmir Gaming, ANP [address] [place], [place] [phone] Health Maintenance Due Date Last Done Comments CT Colonography 1977 Colonoscopy 1977 Colorectal Cancer Screening 1977 Dental Oral Exam 1977 Dental Prophylaxis 1977 Dental X-Ray: Bitewings 1977 Dental X-Ray: Full Mouth 1977 FIT DNA/Cologuard 1977 FIT 1977 FOBT 1977 HIV Screening 1977 Sigmoidoscopy 1977 Eye Exam 12/13/1987 Alcohol/Substance Use Screening 1989 Hepatitis C Screening 12/13/1995 Hepatitis A Vaccines (1 of 2 - Risk 2-dose series) 1996 Pap Smear 1998 Cervical Cancer Screening 12/13/2007 HPV/Cotest 12/13/2007 Mammogram 2017 Diabetes: Hemoglobin A1C 12/11/2023 024, 11/27/2021, 11/27/2021 COVID-19 Vaccine ( season) 2024 09/25/2022, 08/24/2020, 08/03/2020 Influenza Vaccine (#1) 03/22/2024201 8, 06/15/2013, 04/03/2012, Additional history exists Depression Screening 09/12/2024 09/12/2023, 09/12/19 Diabetes: Foot Exam 09/12/2024 09/12/2023, Diabetes: Urine Protein Screening 09/12/2024 09/12/2023 Lipid Panel 09/12/2024 09/12/2023 Tobacco Screening 12/30/2024 12/31/2023 SDOH Screening 01/06/2025 01/07/2024 Family Planning (PISQ) 09/24/2025 09/24/2024 DTaP/Tdap/Td Vaccines (3 - Td or Tdap) [...] 09/24/2024 11 :55 AM EST Vaginal discharge XR LUMBAR SPINE 2-3 VIEWS Routine 07/06/2024 [...] Recently Relevant to Health Maintenance Results * POCT fern test, vaginal fluid manually resulted (09/24/2024 11:55 AM EST) LULU Prep Positive Comment:pH 4.5, few buds, ne g clue, neg whiff, neg wbc, neg trich Vaginal Fluid Vaginal structure / Unknown 09/24/2024 11:55 AM EST Impressions Lilian Meyers CNM - 09/24/2024 11:55 AM EST yeast Lilian Meyers CNM POINT OF CARE TEST ENTER/ EDIT ORDERABLES Final Result * XR Hip right with Pelvis 1 view (07/06/2024 6:36 PM EST) Anatomical Region Laterality Modality Lower Extremities, Hip Bilateral Radiograp hic Imaging 07/06/2024 6:36 PM EST Narrative 07/06/2024 10:01 PM EST ? [facility] ?[address] ?[place] [address] ?XRay Report ? Signed ? Patient: Farr,Yesika M ?MR#: [id number] ?? 66 ? : 1975 ?Acct:[id number] ? Age/Sex: 48 / F ?ADM Date: 12/16/24 ? Loc: HO.ED ? Attending Dr: ? Ordering Physician: Gianluca Olson MD ?? Date of Service: 07/06/24 ?? Procedure(s): XR hip RT w PEL1V ?? Accession Number(s): [id number] ? cc: KASHMIR GAMING NP; Gianluca Olson [...] by Koffi Marcelino, DO in OV> ? 07/06/24 2157 ? DD/ 1836 ? TD/TT: 07/06/241914 ? Peeled Potato Inspector: AC ? Procedure Note Donotuseinterpreter, Image - 07/06/2024 [place] [address] XRay Report Signed Patient: Yesika Farr MMR#: [id number] 66 : 1975Acct:[id number] Age/Sex: 48 / FADM Date: 07/06/24 Loc: HO.ED Attending Dr: Ordering Physician: Gianluca Olson MD Date of Service: 07/06/24 Procedure(s): XR hip RT w PEL1V Accession Number(s): [id number] cc: KASHMIR GAMING NP; Gianluca Olson MD [...] Koffi Marcelino DO in OV> 07/06/247 DD/ 35 TD/TT: 07/06/241914 Peeled Potato Inspector: AC [facility] External Provider IMG XR PROCEDURES Edited Result - Final * XR Lumbar Spine 2-3 Views (07/06/2024 6:36 PM EST) Anatomical Region Laterality Modality Spine, L-spine Radiographic Fabi ging 07/06/2024 6:36 PM EST Narrative 07/06/2024 10:01 PM EST ? [facility] ?[address] ?[place] [address] ?XRay Report ? Signed ? Patient: Farr,Yesika M ?MR#: [id number] ?? 66 ? : 1975 ?Acct:[id number] ? Age/Sex: 48 / F ?ADM Date: 07/06/24 ? Loc: HO.ED ? Attending Dr: ? Ordering Physician: Gianluca Olson MD ?? Date of Service: 07/06/24 ?? Procedure(s): XR lumbar spine 2-3V ?? Accession Number(s): [id number] ? cc: KASHMIR GAMING NP; Gianluca Olson [...] DD/ 1836 ? TD/TT: 07/06/24 1915 ? Peeled Potato Inspector: JL ? Procedure Note Donotuseinterpreter, Image - 07/06/[address] [address] XRay Report Signed Patient: Yesika Farr MMR#: [id number] 66 : 1975Acct:[id number] Age/Sex: 48 / FADM Date: 07/06/24 Loc: HO.ED Attending Dr: Ordering Physician: Gianluca Olson MD Date of Service: 07/06/24 Procedure(s): XR lumbar spine 2-3V Accession Number(s): [id number] cc: KASHMIR GAMING NP; Gianluca Olson MD [...] Gab Marcelino DO 07/06/2024 09:57 PM EST Dictated By: Koffi Marcelino DO Signed By: <Electronically signed by Koffi Marcelino DO in OV> 07/06/242156 DD/ 35 TD/TT: 07/06/24 191 Peeled Potato Inspector: AC [facility] External Provider IMG XR PROCEDURES Edited Result - Final * (ABNORMAL) Glucose, Whole Blood (07/06/2024 6:21 PM EST) Glucose, Whole Blood 307(H) 60 - 115 mg/dL [facility] Comment:METER #: [id number] 07/06/2024 6:21 PM EST 07/06/2024 6:29 PM EST Generic External Data Provider LAB BLOOD ORDERAB LES Final Result Performing Organization Address City/State/[facility] Co de Phone Number [facility] [address] [place] [phone] * (ABNORMAL) POCT HGB A1C (09/12/2023 11:37 AM EST) Hemoglobin A1C 10.6(A) 4.0 - 6.0 % QC Media Lot # [id number] Lot# Expiration Date [id number] Blood 09/12/2023 11:3 7 AM EST us Kashmir Gaming ANP POINT OF CARE TEST ENTER/EDIT OR DERABLES Final Result * (ABNORMAL) Albumin, Random Urine W/Creatinine (09/12/2023 9:40 AM EST) Creatinine, Urine 122.89 mg/dL [facility] Microalbumin Urine 225.0 mg/L H [facility] Microalbum Creatinine Ratio Ur 183.0(H) <30 ug/mg cr [facility] Comment:Albumin/Creatinine R at Reference Ranges: Normal: < 30 ug/mg creatinine Microalbuminuria: 30 - 300 ug/mg creatinineClinical Albuminuria: > 300 ug/mg creatinine Urine 09/12/2023 9:40 AM EST 09/12/2023 11:12 AM EST us Kashmir Gaming ANP LAB URINE ORDERABLES Final Resul t [facility] [address] [place] [phone] * Lipid Panel, Standard (09/12/2023 9:40 AM EST) Triglycerides 88 <150 mg/dL [facility] Comment:Desirable Triglyceri de: less than 150 mg/dLBorderline High Triglyceride 150-199 mg/dLHigh Triglyceride: 200-499 mg/dLVery High Triglyceride: greater than or equal to 5OO mg/dL Cholesterol 111 <200 mg/dL [facility] Comment:Desirable Cholestero l: less than 200 mg/dLBorderline High Cholesterol: 200-239 mg/dLHigh Cholesterol: greater than 239 mg/dL LDL Cholesterol Calculated 52 <100 mg/dL [facility] Comment:Desirable LDL: less than 100 mg/dLNear Optimal/Above Optimal LDL: 110- 129 mg/dLBorderline High LDL: 130-159 mg/dLHigh LDL: 160-189 mg/dLVery High LDL: greater than or equal to 190 mg/dL HDL Cholesterol 42 >40 mg/dL [facility] Comment:Desirable HDL: great er than 40 mg/dL Note: This HDL assay may give artificially low results in patients with liver disease. Blood Venous blood specimen / Unknown 09/12/2023 9:40 AM EST 09/12/2023 11:22 AM EST us Kashmir Gaming ANP LAB BLOOD ORDERABLES Final Resul t [facility] [address] [place], [place] [phone] from Last 3 Months or Most Recently Relevant to Health Maintenance Insurance [place] [facility] MEDICAID STAND ADULT [address] [place] [address] [place] [address] [place] [address] Care Teams Dispatcher Chief Coal Slurry Relationship Specialty Start Date End Date Kashmir Gaming ANP [address] [place] [address] PCP - General Family Medicine 06/28/22
--- OUTSIDE RECORDS SUMMARY | 2024-09-24 19:41 | XMS_ITS | Encounter Summary ---
Author Organization [employer] Address [address] [place] [address] 7t [place] [address] Care Team Providers Care Industrial Relations Officer Name Role Phone Cathy Gerber Primary Care Provider [phone] Reason for Visit * Reason Onset Date Comments Med Refill 08/07/2023 Encounter Details Date Type Department Care Team ([facility] st Contact Info) Description 08/07/2023 Telephone [facility] [address] [place], [place] [phone] Cathy Gerber ANP [address] [place] [address] Med Refill Social History Tobacco Use Types [...] 2:46 PM EST Medication was sent to [facility] #[id number] on 06/28/23 with 5 refills. * Telephone Encounter - Darrick Ashley - 08/07/2023 2:44 PM EST TC from pt requesting medication refill. Medications needing refill : insulin glargine (Lantus SoloStar) 100 UNIT/ML pen To be sent to: [facility]/pharmacy #[id number] documented in this encounter Plan of Treatment Upcoming Encounters Date Type Department Care Team (Late st Contact Info) Description 10/23/2024 2:30 PM EDT Office Visit [facility] [address] [place] [address] Cathy Gerber ANP [address] [place] [address] documented as of this encounter Visit Diagnoses Not on filedocumented in this encounter Care Teams Industrial Relations Officer Relationship Specialty Start Date End Date Cathy Gerber ANP [address] [place] [phone] PCP - General Family Medicine 06/28/22 documented as of this encounter
--- OUTSIDE RECORDS SUMMARY | 2024-09-24 19:41 | XMS_ITS | Encounter Summary ---
Author Organization [employer] [facility] Address [address] [place] [address] 7[address] [place] [address] Care Team Providers Care Counting Machine Operator Name Role Phone Cathy Gerber Primary Care Provider Encounter Details Date Type Department Care Team (Late st Contact Info) Description 11/06/2022 Orders Only [facility] [address] [place] [address] [phone] Cathy Gerber ANP [address] [place], [place] [phone] Social History Tobacco Use Types Packs/Day Years [...] 10/23/2024 2:30 PM EDT Office Visit [facility] [address] [place] [phone] Cathy Gerber ANP [address] [place], [place] [phone] documented as of this encounter Visit Diagnoses Not on filedocumented in this encounter Care Teams Counting Machine Operator Relationship Specialty Start Date End Date Cathy Gerber ANP [address] [place] [address] PCP - General Family Medicine 06/28/22 documented as of this encounter
--- OUTSIDE RECORDS SUMMARY | 2024-09-24 19:41 | XMS_ITS | Encounter Summary ---
Author Organization [employer] Address [address] [place] [address] [address]t [place] [address] Care Team Providers Care Pneumatic Tool Repairer Name Role Phone Cathy Gerber Primary Care Provider Reason for Visit * Reason Onset Date Comments Referral 08/09/2023 Encounter Details Date Type Department Care Team ([facility] st Contact Info) Description 08/09/2023 Telephone [facility] [address] [place] [address] Cathy Gerber ANP [address] [place] [address] Referral Social History Tobacco Use Types Packs/Day [...] encounter Miscellaneous Notes * Telephone Encounter - MICHAEL Salmno - 08/29/2023 4:26 PM EST Sent referral and messaged pt via [employer] to notify * Telephone Encounter - Ana Larson - 08/29/2023 3:06 PM EST TC from pt requesting status on message below. * Telephone Encounter - Yasmeen Uribe - 08/09/2023 1:34 PM EST TC from pt requesting new referral DATE: N/A TIME: N/A Location: [address] [place] [address] Facility: [facility] [place] Type of Specialist: PT DX: right side hemiparesis Please contact pt at [phone] documented in this encounter Plan of Treatment Upcoming Encounters Date Type Department Care Team ([facility] st Contact Info) Description 10/23/2024 2:30 PM EDT Office Visit [facility] [address] [place] [phone] Cathy Gerber ANP [address] [place] [phone] documented as of this encounter Visit Diagnoses Not on filedocumented in this encounter Care Teams Pneumatic Tool Repairer Relationship Specialty Start Date End Date Cathy Gerber ANP [address] [place] [phone] PCP - General Family Medicine 06/28/22 documented as of this encounter
--- OUTSIDE RECORDS SUMMARY | 2024-09-24 19:41 | XMS_ITS | Encounter Summary ---
Author Organization [employer] [facility] Address [address] [place] [address] 7t [place] [address] Care Team Providers Care Litigation Assistant Name Role Phone Cathy Gerber Primary Care Provider Reason for Visit * Reason Comments Med Refill Encounter Details Date Type Department Care Team (Late Contact Info) Description 08/07/2023 Refill [facility] [address] [place] [phone] Cathy Gerber ANP [address] [place] [phone] Social History Tobacco Use Types Packs/Day Years [...] Description 10/23/2024 2:30 PM EDT Office Visit [facility] [address] [place] [address] Cathy Gerber ANP [address] [place] [address] documented as of this encounter Visit Diagnoses Not on filedocumented in this encounter Care Teams Litigation Assistant Relationship Specialty Start Date End Date Cathy Gerber ANP [address] [place] [phone] PCP - General Family Medicine 06/28/22 documented as of this encounter
--- OUTSIDE RECORDS SUMMARY | 2024-09-24 19:42 | XMS_ITS | Encounter Summary ---
Author Organization [employer] Address [address] [facility] [address]t [place] [address] Care Team Providers Care Sole Molding Machine Operator Name Role Phone Cathy Gerber Primary Care Provider [phone] Reason for Visit * Reason Comments Med Refill Encounter Details Date Type Department Care Team ([facility] st Contact Info) Description 09/19/2023 Refill [facility] [address] [place], [place] [phone] Cathy Gerber ANP [address] [place] [address] Seizure disorder (CMS/HCC) Social History Tobacco Use [...] Description 10/23/2024 2:30 PM EDT Office Visit [facility] [address] [place] [address] Cathy Gerber ANP [address] [place] [address] documented as of this encounter Visit Diagnoses Diagnosis Seizure disorder (CMS/HCC) Unspecified epilepsy without mention of intractable epilepsy documented in this encounter Additional Health Concerns Assessment Noted Time PHQ-9 Depression Total Score: 0 09/12/19 24 10:17 AM EST documented as of this encounter Care Teams Sole Molding Machine Operator Relationship Specialty Start Date End Date Cathy Gerber ANP [address] [place] [phone] PCP - General Family Medicine 06/28/22 documented as of this encounter
[2024-10-09 09:08] LABS: HPV Genotype 16 Negative (Negative); HPV Genotype 18 Negative (Negative); HPV High Risk Negative (Negative)
== END 2024-09-24 17:48 | disposition home or self-care (01) ==
LOC: HO.HHCLNP 17:47
PROVIDERS: Visit Provider Advanced Practice Midwife
DX: Z12.4 Encounter for screening for malignant neoplasm of cervix (principal); N89.8 Other specified noninflammatory disorders of vagina
CPT/HCPCS: 87491; 87591; 87626; 87661; 88175

== ENCOUNTER 2024-10-08 10:38 | Outpatient (REF) | payer MEDICAID, SELFPAY ==
--- OUTSIDE RECORDS SUMMARY | 2024-10-08 12:23 | XMS_ITS | Encounter Summary ---
Author Organization [employer] Address 75 [facility] 7t [place] [address] Care Team Providers Care Director Life Sciences Name Role Phone Cathy Gerber Primary Care Provider [phone] Reason for Visit * Reason Onset Date Comments Durable Medical Equipment 09/16/2024 Encounter Details Date Type Department Care Team ([facility] st Contact Info) Description 09/16/2024 Telephone [facility] MEDICINE [address] [place], [place] [phone] Cathy Gerber ANP 230 [place] [address] Durable Medical Equipment Social History Tobacco Use [...] 2:30 PM EDT Office Visit [facility] [address] [place] [address] Cathy Gerber ANP 230 [place] [address] documented as of this encounter Visit Diagnoses Not on filedocumented in this encounter Additional Health Concerns Assessment Noted Time PHQ-9 Depression Total Score: 0 09/12/19 24 10:17 AM EST documented as of this encounter Care Teams Director Life Sciences Relationship Specialty Start Date End Date Cathy Gerber ANP [address] [place] [address] PCP - General Family Medicine 06/28/22 documented as of this encounter
--- OUTSIDE RECORDS SUMMARY | 2024-10-08 12:23 | XMS_ITS | Encounter Summary ---
Author Organization [employer] [facility] Address [address] [place] [address] 7t [place] [address] Care Team Providers Care Carpentry Instructor Name Role Phone Cathy Gerber Primary Care Provider Encounter Details Date Type Department Care Team (Late st Contact Info) Description 09/03/2022 Abstract [facility] MEDICINE [address] [place] [address] Cathy Gerber ANP 230 [place] [address] Social History Tobacco Use Types Packs/Day Years [...] Description 10/23/2024 2:30 PM EDT Office Visit [facility] MEDICINE [address] [place] [address] Cathy Gerber ANP 230 [place] [address] documented as of this encounter Visit Diagnoses Not on filedocumented in this encounter Care Teams Carpentry Instructor Relationship Specialty Start Date End Date Cathy Gerber ANP [address] [place] [address] PCP - General Family Medicine 06/28/22 documented as of this encounter
--- OUTSIDE RECORDS SUMMARY | 2024-10-08 12:23 | XMS_ITS | Encounter Summary ---
Author Organization [employer] Address 75 [facility] 7t [place] [address] Care Team Providers Care Loom Overhauler Name Role Phone Cathy Gerber Primary Care Provider [phone] Reason for Visit * Reason Comments [facility] Encounter Details Date Type Department Care Team (Late st Contact Info) Description 09/24/2024 Patient Outreach [facility] MEDICINE 230 [place], [place] [phone] Britton Nair Recovery Supports Social History Tobacco [...] with Yesika whitney. Setting: in person at [facility] Recovery Wellness Goals worked on: Social Stability Action taken/next steps: Attended alcohol and drug free activity Additional comments: Today, participant Yesika Farr was at the recovery center. Britton Nair documented in this encounter Plan of Treatment Upcoming Encounters Date Type Department Care Team (Late st Contact Info) Description 10/23/2024 2:30 PM EDT Office Visit [facility] MEDICINE 230 [place] [address] Cathy Gerber ANP 230 [place] [address] documented as of this encounter Visit Diagnoses Not on filedocumented in this encounter Additional Health Concerns Assessment Noted Time PHQ-9 Depression Total Score: 0 09/12/19 24 10:17 AM EST documented as of this encounter Care Teams Loom Overhauler Relationship Specialty Start Date End Date Cathy Gerber ANP 230 [place] [address] PCP - General Family Medicine 06/28/22 documented as of this encounter
--- OUTSIDE RECORDS SUMMARY | 2024-10-08 12:23 | XMS_ITS | Encounter Summary ---
Author Organization [employer] Address 75 [facility] 7t [place] [address] Care Team Providers Care Slip Operator Name Role Phone Cathy Gerber Primary Care Provider [phone] Reason for Visit * Reason Onset Date Comments Referral 09/16/2024 Encounter Details Date Type Department Care Team ([facility] st Contact Info) Description 09/16/2024 Telephone [facility] MEDICINE 230 [place], [place] [phone] Cathy Gerber ANP 230 [place] [address] Referral Social History Tobacco Use Types Packs/Day [...] - 09/16/2024 1:03 PM EST Tc from [facility] with [facility] requesting a referral for a neurology in regards pt seizures. [facility] [phone] documented in this encounter Plan of Treatment Upcoming Encounters Date Type Department Care Team (Late st Contact Info) Description 10/23/2024 2:30 PM EDT Office Visit [facility] MEDICINE 230 [place], [place] [phone] Cathy Gerber ANP 230 [place] [address] documented as of this encounter Visit Diagnoses Not on filedocumented in this encounter Additional Health Concerns Assessment Noted Time PHQ-9 Depression Total Score: 0 09/12/19 24 10:17 AM EST documented as of this encounter Care Teams Slip Operator Relationship Specialty Start Date End Date Cathy Gerber ANP 230 [place] [address] PCP - General Family Medicine 06/28/22 documented as of this encounter
--- OUTSIDE RECORDS SUMMARY | 2024-10-08 12:23 | XMS_ITS | Encounter Summary ---
Author Organization [employer] [facility] Address [address] [place] [address] 7t [place] [address] Care Team Providers Care Consumer Loan Officer Name Role Phone Cathy Gerber Primary Care Provider Reason for Visit * Reason Comments Med Refill Encounter Details Date Type Department Care Team (Late Contact Info) Description 08/07/2023 Refill [facility] MEDICINE [address] [place] [address] Cathy Gerber ANP [address] [place] [address] Social History Tobacco Use Types Packs/Day Years [...] Description 10/23/2024 2:30 PM EDT Office Visit [facility] MEDICINE [address] [place] [address] Cathy Gerber ANP 230 [place] [address] documented as of this encounter Visit Diagnoses Not on filedocumented in this encounter Care Teams Consumer Loan Officer Relationship Specialty Start Date End Date Cathy Gerber ANP [address] [place] [address] PCP - General Family Medicine 06/28/22 documented as of this encounter
--- OUTSIDE RECORDS SUMMARY | 2024-10-08 12:23 | XMS_ITS | Encounter Summary ---
Author Organization [employer] Address 75 [facility] 7t [place] [address] Care Team Providers Care Special Services Director Name Role Phone Cathy Gerber Primary [...] t he electric, gas, oil or water [employer] threatened to shut off services in your [...] Description 10/23/2024 2:30 PM EDT Office Visit [facility] MEDICINE [address] [place] [address] Cathy Gerber ANP 230 [place] [address] documented as of this encounter Visit Diagnoses Not on filedocumented in this encounter Additional Health Concerns Assessment Noted Time PHQ-9 Depression Total Score: 0 09/12/19 24 10:17 AM EST documented as of this encounter Care Teams Special Services Director Relationship Specialty Start Date End Date Cathy Gerebr ANP [address] [place] [address] PCP - General Family Medicine 06/28/22 documented as of this encounter
--- OUTSIDE RECORDS SUMMARY | 2024-10-08 12:23 | XMS_ITS | Encounter Summary ---
Author Organization [employer] Address 75 [facility] 7t [place] [address] Care Team Providers Care Clinical Review Nurse Name Role Phone Cathy Gerber Primary Care Provider [phone] Reason for Visit * Reason Onset Date Comments Results 09/28/2024 Encounter Details Date Type Department Care Team ([facility] st Contact Info) Description 09/28/2024 Telephone [facility] MEDICINE 230 [place] [address] Cathy Gerber ANP 230 [place] [address] Results Social History Tobacco Use Types Packs/Day Years [...] encounter Miscellaneous Notes * Telephone Encounter - Venus Garg RN - 10/01/2024 8:41 AM EDT Labs not resulted yet. Called pt to advise of this and that we will be in touch once resulted. Pt verbalized understanding. * Telephone Encounter - Venus Garg RN - 09/29/2024 10:31 AM EDT Labs not resulted yet. Will task to check again and notify pt. * Telephone Encounter - Venus Garg RN - 09/28/2024 3:22 PM EDT Lab results not resulted yet. Will task to check tomorrow and notify pt if resulted. * Telephone Encounter - Marissa Neal - 09/28/2024 3:11 PM EDT TC from pt requesting call back regarding Results. Type of results: Pap Smear, STI testing add on, POCT fern test.., Date when done: 09/24 Facility: [facility] documented in this encounter Plan of Treatment Upcoming Encounters Date Type Department Care Team (Late st Contact Info) Description 10/23/2024 2:30 PM EDT Office Visit [facility] MEDICINE 230 [place] [address] Cathy Gerber ANP 230 [place] [address] documented as of this encounter Visit Diagnoses Not on filedocumented in this encounter Additional Health Concerns Assessment Noted Time PHQ-9 Depression Total Score: 0 09/12/19 24 10:17 AM EST documented as of this encounter Care Teams Clinical Review Nurse Relationship Specialty Start Date End Date Cathy Gerber ANP [address] [place] [address] PCP - General Family Medicine 06/28/22 documented as of this encounter
--- OUTSIDE RECORDS SUMMARY | 2024-10-08 12:23 | XMS_ITS | Encounter Summary ---
Author Organization [employer] Address 75 [facility] 7t [place] [address] Care Team Providers Care Tents Assembler Name Role Phone Cathy Gerber Primary Care Provider Reason for Visit * Reason Onset Date Comments Durable Medical Equipment 09/15/2024 Encounter Details Date Type Department Care Team ([facility] st Contact Info) Description 09/15/2024 Telephone [facility] MEDICINE 230 [place], [place] [phone] Cathy Gerber ANP 230 [place] [address] Durable Medical Equipment Social History Tobacco Use [...] Telephone Encounter - Sherrill Hanks RN - 09/25/2024 11:35 AM EST Telephone call placed to pt to clarify need for gloves. 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 Informed that this is not a medical need and that I don't think it will be covered but that she should come to apptnext month as we haven't seen her in ~a year. Pt agreeable to coming to the appt. * Telephone Encounter - Marina Hinson - 09/16/2024 9:41 AM EST Pt requesting dme gloves. If agree with dme, please provide dx and notes to support the need. * Telephone Encounter - [place] Gaitan - 09/15/2024 1:53 PM EST Tc from pt requesting DME for Gloves Medium. Contact pt at [phone] documented in this encounter Plan of Treatment Upcoming Encounters Date Type Department Care Team (Late st Contact Info) Description 10/23/2024 2:30 PM EDT Office Visit [facility] MEDICINE 230 [place] [address] Cathy Gerber ANP [address] [place] [address] documented as of this encounter Visit Diagnoses Not on filedocumented in this encounter Additional Health Concerns Assessment Noted Time PHQ-9 Depression Total Score: 0 09/12/19 24 10:17 AM EST documented as of this encounter Care Teams Tents Assembler Relationship Specialty Start Date End Date Cathy Gerber ANP [address] [place] [address] PCP - General Family Medicine 06/28/22 documented as of this encounter
--- OUTSIDE RECORDS SUMMARY | 2024-10-08 12:23 | XMS_ITS | Encounter Summary ---
Author Organization [employer] [facility] Address [address] [place] [address] 7t [place] [address] Care Team Providers Care Hr Payroll Coordinator Name Role Phone Cathy Gerber Primary Care Provider Encounter Details Date Type Department Care Team (Late st Contact Info) Description 08/30/[address] [facility] MEDICINE [address] [place] [address] Cathy Gerber ANP 230 [place] [address] Social History Tobacco Use Types Packs/Day Years [...] 10/23/2024 2:30 PM EDT Office Visit [facility] MEDICINE [address] [place] [address] Cathy Gerber ANP 230 [place] [address] documented as of this encounter Visit Diagnoses Not on filedocumented in this encounter Care Teams Hr Payroll Coordinator Relationship Specialty Start Date End Date Cathy Gerber ANP [address] [place] [address] PCP - General Family Medicine 06/28/22 documented as of this encounter
--- OUTSIDE RECORDS SUMMARY | 2024-10-08 12:23 | XMS_ITS | Encounter Summary ---
Author Organization [employer] Address 75 [facility] 7t [place] [address] Care Team Providers Care Pole Lift Operator Name Role Phone Cathy Gerber MICHAEL Primary Care Provider [phone] Reason for Visit * Reason Comments Med Refill Encounter Details Date Type Department Care Team ([facility] st Contact Info) Description 07/08/2024 Refill [facility] 230 [place] [address] Sudhakar Bustillos, IRWIN 230 [place] [address] Social History Tobacco Use Types Packs/Day Years [...] Visit [facility] MEDICINE [address] [place] [address] Cathy Gerber ANP 230 [place] [address] documented as of this encounter Visit Diagnoses Not on filedocumented in this encounter Additional Health Concerns Assessment Noted Time PHQ-9 Depression Total Score: 0 09/12/19 24 10:17 AM EST documented as of this encounter Care Teams Pole Lift Operator Relationship Specialty Start Date End Date Cathy Gerber ANP [address] [place] [address] PCP - General Family Medicine 06/28/22 documented as of this encounter
--- OUTSIDE RECORDS SUMMARY | 2024-10-08 12:23 | XMS_ITS | Encounter Summary ---
Author Organization [employer] Address 75 [facility] 7t [place] [address] Care Team Providers Care Computer Hardware Designer Name Role Phone Cathy Gerber Primary Care Provider [phone] Reason for Visit * Reason Onset Date Comments Appointment Request 04/24/2024 Encounter Details Date Type Department Care Team ([facility] Contact Info) Description 04/24/2024 Telephone [facility] MEDICINE [address] [place], [place] [phone] Cathy Gerber ANP 230 [place] [address] Appointment Request Social History Tobacco Use Types [...] patient calling to reschedule appt from 04/24 check writer did attempt to reschedule however thereis no availability documented in this encounter Plan of Treatment Upcoming Encounters Date Type Department Care Team (Late st Contact Info) Description 10/23/2024 2:30 PM EDT Office Visit [facility]INE [address] [place] [address] Cathy Gerber ANP 230 [place] [address] documented as of this encounter Visit Diagnoses Not on filedocumented in this encounter Additional Health Concerns Assessment Noted Time PHQ-9 Depression Total Score: 0 09/12/19 24 10:17 AM EST documented as of this encounter Care Teams Computer Hardware Designer Relationship Specialty Start Date End Date Cathy Gerber ANP [address] [place] [address] PCP - General Family Medicine 06/28/22 documented as of this encounter
--- OUTSIDE RECORDS SUMMARY | 2024-10-08 12:23 | XMS_ITS | Encounter Summary ---
Author Organization [employer] [facility] Address [address] [place] [address] 7t [place] [address] Care Team Providers Care Clinical Laboratory Medical Director Name Role Phone Cathy Gerber Primary Care Provider [phone] Encounter Details Date Type Department Care Team (Late st Contact Info) Description 07/02/2022 Orders Only [facility] MEDICINE [address] [place] [address] Jennifer Steel, RN 230 [place] [address] Social History Tobacco Use Types Packs/Day Years [...] 10/23/2024 2:30 PM EDT Office Visit [facility] MEDICINE [address] [place] [address] Cathy Gerber ANP 230 [place] [address] documented as of this encounter Visit Diagnoses Not on filedocumented in this encounter Care Teams Clinical Laboratory Medical Director Relationship Specialty Start Date End Date Cathy Gerber ANP [address] [place] [address] PCP - General Family Medicine 06/28/22 documented as of this encounter
--- OUTSIDE RECORDS SUMMARY | 2024-10-08 12:23 | XMS_ITS | Encounter Summary ---
Author Organization [employer] Address [address] [place] [address] 7t [place] [address] Care Team Providers Care Shoe Parts Caser Name Role Phone Cathy Gerber Primary Care Provider [phone] Reason for Visit * Reason Onset Date Comments Med Refill 08/07/2023 Encounter Details Date Type Department Care Team ([facility] st Contact Info) Description 08/07/[address] [facility] MEDICINE 230 [place], [place] [phone] Cathy Gerber ANP 230 [place] [address] Med Refill Social History Tobacco Use Types [...] 2:46 PM EST Medication was sent to [facility] #[id number] on 06/28/23 with 5 refills. * Telephone Encounter - Darrick Ashley - 08/07/2023 2:44 PM EST TC from pt requesting medication refill. Medications needing refill : insulin glargine (Lantus SoloStar) 100 UNIT/ML pen To be sent to: [facility]/pharmacy #[id number] documented in this encounter Plan of Treatment Upcoming Encounters Date Type Department Care Team (Late st Contact Info) Description 10/23/2024 2:30 PM EDT Office Visit [facility] MEDICINE 230 [place] [address] Cathy Gerber ANP 230 [place] [address] documented as of this encounter Visit Diagnoses Not on filedocumented in this encounter Care Teams Shoe Parts Caser Relationship Specialty Start Date End Date Cathy Gerber ANP [address] [place] [address] PCP - General Family Medicine 06/28/22 documented as of this encounter
--- OUTSIDE RECORDS SUMMARY | 2024-10-08 12:23 | XMS_ITS | Encounter Summary ---
Author Organization [employer] Address [address] [place] [address] 7t [place] [address] Care Team Providers Care Rumper Name Role Phone Cathy Gerber Primary Care Provider [phone] Reason for Visit * Reason Onset Date Comments Referral 08/09/2023 Encounter Details Date Type Department Care Team ([facility] st Contact Info) Description 08/09/2023 Telephone [facility] MEDICINE 230 [place] [address] Cathy Gerber ANP 230 [place] [address] Referral Social History Tobacco Use Types Packs/Day [...] Miscellaneous Notes * Telephone Encounter - MICHAEL [place] - 08/29/2023 4:26 PM EST Sent referral and messaged pt via [employer] to notify * Telephone Encounter - Ana Larson - 08/29/2023 3:06 PM EST TC from pt requesting status on message below. * Telephone Encounter - Yasmeen Uribe - 08/09/2023 1:34 PM EST TC from pt requesting new referral DATE: N/A TIME: N/A Location: [address] [place] [address] Facility: [facility] physical therapy Type of Specialist: PT DX: right side hemiparesis Please contact pt at [phone] documented in this encounter Plan of Treatment Upcoming Encounters Date Type Department Care Team ([facility] st Contact Info) Description 10/23/2024 2:30 PM EDT Office Visit [facility] MEDICINE [address] [place] [address] Cathy Gerber ANP [address] [place] [address] documented as of this encounter Visit Diagnoses Not on filedocumented in this encounter Care Teams Rumper Relationship Specialty Start Date End Date Cathy Gerber ANP [address] [place] [address] PCP - General Family Medicine 06/28/22 documented as of this encounter
--- OUTSIDE RECORDS SUMMARY | 2024-10-08 12:23 | XMS_ITS | Encounter Summary ---
Author Organization [employer] [facility] Address [address] [place] [address] 7t [place] [address] Care Team Providers Care Rolling Mill Operator Helper Name Role Phone Cathy Gerber Primary Care Provider Reason for Visit * Reason Comments Med Change Request Encounter Details Date Type Department Care Team ([facility] Contact Info) Description 08/20/2023 Refill [facility] MEDICINE [address] [place] [address] Cathy Gerber ANP [address] [place] [address] Seizure disorder (CMS/HCC) Social History Tobacco Use [...] Description 10/23/2024 2:30 PM EDT Office Visit [facility] MEDICINE [address] [place] [address] Cathy Gerber ANP [address] [place] [address] documented as of this encounter Visit Diagnoses Diagnosis Seizure disorder (CMS/HCC) Unspecified epilepsy without mention of intractable epilepsy documented in this encounter Care Teams Rolling Mill Operator Helper Relationship Specialty Start Date End Date Cathy Gerber ANP [address] [place] [address] PCP - General Family Medicine 06/28/22 documented as of this encounter
--- OUTSIDE RECORDS SUMMARY | 2024-10-08 12:23 | XMS_ITS | Clinical Summary ---
Author Organization [employer] Address 75 [facility] 7t [place] [address] Care Team Providers Care Core Measures Abstractor Name Role Phone Cathy Gerber Primary Care Provider [phone] Allergies Active Allergy Reactions Criticality Noted Date Comments Gramineae Pollens 07/27/2022 Tomato Rash Low 07/31/2023 Medications Blood Glucose Monitoring Suppl (StatStyle Lite) w/Device kit 1 kit 3 times daily. 1 kit 023 Active albuterol 108 (90 Base) MCG/ACT inhalerIndication s:COPD exacerbation ([facility]) Inhale 2 puffs every 6 (six) hours if needed for wheezing. 18 g 023 Active hydrOXYzine HCl (Atarax) 25 MG tablet Take 25 mg by mouth if needed in the morning and at bedtime. 023 Active dulaglutide (Trulicity) 3 MG/0.5ML solution pen-injectorIndic ations:Type 2 diabetes mellitus with hyperlipidemia (CMS/HCC) ([facility]) Inject 3 mg under the skin 1 (one) time per week. 4 each 024 Active Continuous Blood Gluc Life Insurance Sales Agent (FreeStyle [place] 2 [place]) deviceIndications :Type 2 diabetes mellitus with hyperlipidemia [...] padsIndications:T ype 2 diabetes mellitus with hyperlipidemia ([facility]/HCC) ([facility]) USE DIRECTED 100 each 024 Active glucose blood (FREESTYLE LITE) test stripIndications: Type 2 diabetes mellitus with hyperlipidemia ([facility]/HCC) ([facility]) USE TO TEST BLOOD SUGAR THREE TIMES [...] tabletIndications :Alcohol dependence with unspecified alcohol-induced disorder ([facility]) TAKE 1 TABLET BY MOUTH EVERY DAY [...] levETIRAcetam (Keppra) 1000 MG tabletIndications :Seizure disorder ([facility]) TAKE 1 + 1/2 TABLETS BY MOUTH TWICE A DAY 270 tablet 024 Active magnesium oxide (Mag-Ox) 400 (240 Mg) MG tablet TAKE 1 TABLET BY MOUTH TWICE A DAY 180 tablet 025 Active atorvastatin (Lipitor) 40 MG tabletIndications :Type 2 diabetes mellitus with hyperlipidemia (CMS/HCC) ([facility]) TAKE 1 TABLET BY MOUTH AT BEDTIME 90 tablet 025 Active Aspirin Low Dose 81 MG chewable tabletIndications :Type 2 diabetes mellitus with hyperlipidemia (CMS/HCC) ([facility]) CHEW 1 TABLET BY MOUTH EVERY DAY 90 tablet 025 Active metFORMIN (Glucophage) 1000 MG tabletIndications :Type 2 diabetes mellitus with other specified complication, with long-term current use of insulin ([facility]) TAKE 1 TABLET BY MOUTH TWICE DAILY IN THE MORNING AND IN THE EVENING WITH MEALS 180 tablet 1 025 Active lisinopril 40 MG tabletIndications :Primary hypertension TAKE 1 TABLET BY MOUTH EVERY DAY IN THE MORNING 90 tablet 1 025 Active cloNIDine (Catapres) 0.2 MG tabletIndications :Hypertension associated with diabetes (CMS/HCC) ([facility]) TAKE 1 TABLET BY MOUTH TWICE A DAY 180 tablet 1 025 Active glucose blood (FreeStyle Precision Edward Test) test stripIndications: Type 2 diabetes mellitus with hyperlipidemia (CMS/HCC) ([facility]) Use to test blood sugar 5 times daily 100 each 12 024 2024 cloNIDine (Catapres) 0.2 MG tabletIndications :Hypertension associated with diabetes (CMS/HCC) ([facility]) TAKE 1 TABLET BY MOUTH TWICE A DAY 180 tablet 1 024 2024 Discontinued terconazole (Terazol 7) 0.4 % vaginal cream Insert 1 applicator into the vagina at bedtime for 7 days. 45 g 025 2024 Active Problems Problem Noted Date Diagnosed Date [...] nodule 05/08/2023 Overview (05/08/2023): -CT abd/pelvis done [facility] ER 01/16/2023 for RLQ abd pain [...] Encounters Date Type Department Care Team Description 10/05/2024 Telephone [facility] MED[facility] [address] [place] [address] Lilian Meyers CNM Results 10/02/2024 Population Health Risk Score [facility] ([facility] Department [address] [place] [address] Provider, Population Health Generic 09/28/2024 Telephone [facility] [address] [place] [address] Cathy Gerber ANP Results 09/24/2024 10:15 AM EST Office Visit [facility] [address] [place] [address] Lilian Meyers, ERIKA Vaginal discharge (Primary Dx); Routine cervical smear; Breast cancer screening by mammogram 09/24/2024 Patient Outreach [facility] [address] [place] [address] Britton Nair RC Recovery Supports 09/24/2024 Travel 09/24/2024 Refill [facility] [address] [place] [address] Cathy Gerber ANP Hypertension associated with diabetes (CMS/HCC) ([facility]) 09/23/2024 Telephone [facility] PEDIAT[facility] [address] [place] [address] Cathy Gerber ANP Appointment 09/16/2024 Telephone [facility] [address] [place] [address] Cathy Gerber ANP Durable Medical Equipment 09/16/[address] [address] Cathy Gerber ANP Referral 09/15/2024 Telephone [facility] [address] [place] [address] Cathy Gerber ANP Durable Medical Equipment 09/15/2024 Telephone [facility] [address] [place] [address] Cathy Gerber ANP Referral 08/31/2024 Refill [facility] [address] [place] [address] Cathy Gerber ANP Type 2 diabetes mellitus with other specified complication, with long-term current use of insulin ([facility]); Primary hypertension 07/31/2024 Telephone [facility] [address] [place] [address] Jennifer Mckenzie, DO No Show 07/31/2024 Refill [facility] [address] [place] [address] Cathy Gerber ANP Type 2 diabetes mellitus with hyperlipidemia ([facility]) 07/30/2024 Telephone [facility] [address] [place] [address] Cathy Gerber ANP Nurse Triage 07/30/2024 Telephone [facility] [address] [place] [address] Cathy Gerber ANP Nurse Triage 07/26/2024 Refill [facility] [address] [place] [address] Cathy Gerber ANP 07/10/2024 Refill [facility] [address] [place] [address] Cathy Gerber ANP Gastroesophageal reflux disease, unspecified whether esophagitis present; Seizure disorder (CMS/HCC) from Last 3 Months Immunizations Name Administration [...] got money to buy more: Sometimes True 06/18/ 2024 Within the past 12 months,th e food [...] Description 10/23/2024 2:30 PM EDT Office Visit [facility] [address] [place] [address] Cathy Gerber ANP [address] [place] [address] Health Maintenance Due Date Last Done Comments CT Colonography 1977 Colonoscopy 1977 Colorectal Cancer Screening 1977 Dental Oral Exam 1977 Dental Prophylaxis 1977 Dental X-Ray: Bitewings 1977 Dental X-Ray: Full Mouth 1977 FIT DNA/Cologuard 1977 FIT 1977 FOBT 1977 HIV Screening 1977 Sigmoidoscopy 1977 Eye Exam 12/13/1987 Alcohol/Substance Use Screening 1989 Hepatitis C Screening 12/13/1995 Pap Smear 1998 Cervical Cancer Screening 12/13/2007 HPV/Cotest 12/13/2007 Mammogram 2017 Diabetes: Hemoglobin A1C 12/11/2023 024, 11/27/2021, 11/27/2021 COVID-19 Vaccine ( season) 2024 09/25/2022, 08/24/2020, 08/03/2020 Influenza Vaccine (#1) 2024 8, 06/15/2013, 04/03/2012, Additional history exists Depression [...] on patient's age to complete this topic Hepatitis A Vaccines Aged Out No long er eligible based on patient's age to complete [...] 09/24/2024 11 :55 AM EST Vaginal discharge CHLAMYDIA/N. GONORRHOEAE AND T. VAGINALIS RNA, QUAL,TMA Routine 09/24/2024 10:10 AM EST Vaginal discharge POCT GLYCATED HEMOGLOBIN, TOTAL Routine 09/12/2023 11:37 [...] TEST ENTER/ EDIT ORDERABLES Final Result * (ABNORMAL) POCT HGB A1C (09/12/2023 11:37 AM EST) Hemoglobin A1C 10.6(A) 4.0 - 6.0 % QC Media Lot # [id number] Lot# Expiration Date , Blood 09/12/2023 11:3 7 AM EST us Cathy Gerber ANP POINT OF CARE TEST ENTER/EDIT OR DERABLES Final Result * (ABNORMAL) Albumin, Random Urine W/Creatinine (09/12/2023 9:40 AM EST) Creatinine, Urine 122.89 mg/dL [facility] Microalbumin Urine 225.0 mg/L [facility] Microalbum Creatinine Ratio Ur 183.0(H) <30 ug/mg cr [facility] Comment:Albumin/Creatinine R atio Reference Ranges: Normal: < 30 ug/mg creatinine Microalbuminuria: 30 - 300 ug/mg creatinineClinical Albuminuria: > 300 ug/mg creatinine Urine 09/12/2023 9:40 AM EST 09/12/2023 11:12 AM EST us Cathy Gerber [facility] URINE ORDERABLES Final Resul t [facility] [address] [place] [phone] * Lipid Panel, Standard (09/12/2023 9:40 AM EST) Triglycerides 88 <150 mg/dL [facility] Comment:Desirable Triglyceri de: less than 150 mg/dLBorderline High Triglyceride 150-199 mg/dLHigh Triglyceride: 200-499 mg/dLVery High Triglyceride: greater than or equal to 5OO mg/dL Cholesterol 111 <200 mg/dL [facility] Comment:Desirable Cholestero l: less than 200 mg/dLBorderline High Cholesterol: 200-239 mg/dLHigh Cholesterol: greater than 239 mg/dL LDL Cholesterol Calculated 52 <100 mg/dL [facility] Comment:Desirable LDL: less than 100 mg/dLNear Optimal/Above Optimal LDL: 110- 129 mg/dLBorderline High LDL: 130-159 mg/dLHigh LDL: 160-189 mg/dLVery High LDL: greater than or equal to 190 mg/dL HDL Cholesterol 42 >40 mg/dL [facility] Comment:Desirable HDL: great er than 40 mg/dL Note: This HDL assay may give artificially low results in patients with liver disease. Blood Venous blood specimen / Unknown 09/12/2023 9:40 AM EST 09/12/2023 11:22 AM EST [facility] BLOOD ORDERABLES Final Resul t [facility] [address] [place] [phone] from Last 3 Months or Most Recently Relevant to Health Maintenance [place] [id number] [facility] [address] [place] [id number] [facility] MEDICA[facility] STAND ADULT Care Teams Core Measures Abstractor Relationship Specialty Start Date End Date Cathy Gerber ANP [address] [place] [phone] PCP - General Family Medicine 06/28/22
--- OUTSIDE RECORDS SUMMARY | 2024-10-08 12:23 | XMS_ITS | Encounter Summary ---
Author Organization [employer] Address 75 [facility] 7t [place] [address] Care Team Providers Care Marketing Data Specialist Name Role Phone Cathy Gerber MICHAEL Primary Care Provider [phone] Reason for Visit * Reason Onset Date Comments Results 10/05/2024 Encounter Details Date Type Department Care Team ([facility] Contact Info) Description 10/05/2024 Telephone [facility] [address] [place], [place] [phone] Lilian Meyers CNM [address] [place] [address] Results Social History Tobacco Use Types Packs/Day [...] Telephone Encounter - Venus Garg RN - 10/05/2024 9:13 AM EDT Telephone call to Tahira Mccoy at [facility] main lab (cytology). Per Tahira, the medium for the samples is on backorder for now and it is a [facility] problem however they plan to run the tests so they are still pending. Asked if the results will be updated once the tests are run, Tahira stated yes. She stated that the provider can continue to order paps/STI add on testing the same way for now. Manager Filter verbally updated CNM. * Telephone Encounter - Venus Garg RN - 10/05/2024 9:13 AM EDT ----- Message from Lilian Meyers sent at 10/05/2024 8:18 AM EDT ----- Per lab Gonorrhea/Chlamydia not performed as no swab received. Gonorrhea/Chlamydia/trichomonas testing was ordered off pap, so should be able to run from that sample. Please confirm that lab is running. Thanks! documented in this encounter Plan of Treatment Upcoming Encounters Date Type Department Care Team (Late st Contact Info) Description 10/23/2024 2:30 PM EDT Office Visit [facility] [address] [place] [address] Cathy Gerber ANP [address] [place] [address] documented as of this encounter Visit Diagnoses Not on filedocumented in this encounter Additional Health Concerns Assessment Noted Time PHQ-9 Depression Total Score: 0 09/12/19 24 10:17 AM EST documented as of this encounter Care Teams Marketing Data Specialist Relationship Specialty Start Date End Date Cathy Gerber ANP [address] [place] [address] PCP - General Family Medicine 06/28/22 documented as of this encounter
--- OUTSIDE RECORDS SUMMARY | 2024-10-08 12:23 | XMS_ITS | Encounter Summary ---
Author Organization [facility] Address [address] [place] [address] 7t [place] [address] Care Team Providers Care Cotton Picking Machine Operator Name Role Phone Cathy Gerber Primary Care Provider Encounter Details Date Type Department Care Team (Late st Contact Info) Description 11/06/2022 Orders Only [facility] MED[facility]INE [address] [place] [phone] Cathy Gerber ANP [address] [place], [place] [phone] Social History Tobacco Use Types Packs/Day Years [...] Description 10/23/2024 2:30 PM EDT Office Visit [facility] [address] [place] [address] [phone] Cathy Gerber ANP [address] [place], [place] [phone] documented as of this encounter Visit Diagnoses Not on filedocumented in this encounter Care Teams Cotton Picking Machine Operator Relationship Specialty Start Date End Date Cathy Gerber ANP [address] [place] [address] PCP - General Family Medicine 06/28/22 documented as of this encounter
--- OUTSIDE RECORDS SUMMARY | 2024-10-08 12:23 | XMS_ITS | Encounter Summary ---
Author Organization [facility] Address [address] [place] [address] 7t [place] [address] Care Team Providers Care Ground Crewman Name Role Phone Jennifer Mckenzie DO Primary Care Provider [phone] Cathy Gerber Primary Care Provider [phone] Encounter Details Date Type Department Care Team (Latest Contact Info) Description 05/18/[address] [facility] CONVERSIONS Dental, Provider, DDS Social History [...] 2:30 PM EDT Office Visit [facility] MEDICINE [address] [place] [address] Cathy Gerber ANP [address] [place] [address] documented as of this encounter Visit Diagnoses Not on filedocumented in this encounter Care Teams Ground Crewman Relationship Specialty Start Date End Date Jennifer Mckenzie DO [address] [place] [address] PCP - General Family Medicine 04/06/22 06/27/22 Catyh Gerber ANP [address] [place] [address] PCP - General Family Medicine 06/28/22 documented as of this encounter
--- OUTSIDE RECORDS SUMMARY | 2024-10-08 12:23 | XMS_ITS | Encounter Summary ---
Author Organization [employer] Address [address] [facility] 7t [place] [address] Care Team Providers Care Supervisor Roller Shop Name Role Phone Cathy Gerber Primary Care Provider [phone] Reason for Visit * Reason Comments Med Refill Encounter Details Date Type Department Care Team ([facility] Contact Info) Description 03/09/2024 Refill [facility] MEDICINE [address] [place], [place] [phone] Lilian Meyers, ERIKA [address] [place] [address] Social History Tobacco Use Types Packs/Day Years [...] Description 10/23/2024 2:30 PM EDT Office Visit [facility] MED[facility]INE [address] [place] [address] Cathy Gerber ANP 230 [place] [address] documented as of this encounter Visit Diagnoses Not on filedocumented in this encounter Additional Health Concerns Assessment Noted Time PHQ-9 Depression Total Score: 0 09/12/19 24 10:17 AM EST documented as of this encounter Care Teams Supervisor Roller Shop Relationship Specialty Start Date End Date Cathy Gerber ANP [address] [place] [address] PCP - General Family Medicine 06/28/22 documented as of this encounter
--- OUTSIDE RECORDS SUMMARY | 2024-10-08 12:23 | XMS_ITS | Encounter Summary ---
Author Organization [employer] Address 75 [facility] 7t [place] [address] Care Team Providers Care Seasonal Delivery Driver Name Role Phone Cathy Gerber Primary Care Provider [phone] Encounter Details Date Type Department Care Team ([facility] st Contact Info) Description 10/02/2024 Population Health Risk Score [facility] (C3) Department 75 [facility] 7 [place] [phone] Provider, Population Health Generic Social History Tobacco Use Types Packs/Day Years [...] EDT Office Visit [facility] MEDICINE [address] [place] [address] Cathy Gerber ANP 230 [place] [address] documented as of this encounter Visit Diagnoses Not on filedocumented in this encounter Additional Health Concerns Assessment Noted Time PHQ-9 Depression Total Score: 0 09/12/19 24 10:17 AM EST documented as of this encounter Care Teams Seasonal Delivery Driver Relationship Specialty Start Date End Date Cathy Gerber ANP [address] [place] [address] PCP - General Family Medicine 06/28/22 documented as of this encounter
--- OUTSIDE RECORDS SUMMARY | 2024-10-08 12:23 | XMS_ITS | Encounter Summary ---
Author Organization [employer] Address [address] [place] [address] 7t [place] [address] Care Team Providers Care Director Family Name Role Phone Cathy Gerber MICHAEL Primary Care Provider [phone] Reason for Referral * Imaging (Routine) - Closed Specialty Diagnoses / Procedures Referred By Smitha hernandez Referred To Contact Radiology Diagnoses Breast cancer screening by mammogram Procedures BI Mammogram Screening Tomosynthesis Bilateral Lilian Meyers CNM [address] [place] [address] Phone: tel: fax: [address] Phone: tel: fax: Referral ID Status Reason Start Date Expiration Date Visits Re quested Visits Authorized [id number] Closed 09/24/2024 09/24/2025 1 1 Encounter Details Date Type Department Care Team (Late st Contact Info) Description 09/24/2024 10:15 AM EST Office Visit [facility] MEDICINE [address] [place], [place] [phone] Lilian Meyers CNM [address] [place], [place] [phone] Vaginal discharge (Primary Dx); Routine cervical smear; [...] Wt 198 lb 6.4 oz (90 kg) CeA702% BMI 42.93 kg/m?? Physical Exam Constitutional: Appearance: [...] bedtime for 7days. documented in this encounter Miscellaneous Notes * Result Encounter Note - Lilian Meyers CNM - 09/24/2024 10:15 AM EST Per lab Gonorrhea/Chlamydia not performed as no swab received. Gonorrhea/Chlamydia/trichomonas testing was ordered off pap, so should be able to run from that sample. Please confirm that lab is running. Thanks! documented in this encounter Plan of Treatment Upcoming Encounters Date Type Department Care Team (Late st Contact Info) Description 10/23/2024 2:30 PM EDT Office Visit [facility] [address] [place] [address] Cathy Gerber ANP 230 [place] [address] Pending Results Name Type Priority Associated Diagnoses Date /Time STI testing add on (NG, CT, Trich) Pathology and Cytology Routine Vaginal discharge 09/24/2024 10:10 AM EST Scheduled Orders Name Type Priority Associated Diagnoses Order Schedule Pap Smear Pathology and Cytology Routine Routine cervical smear Ordered: 09/24/2024 BI Mammogram Screening Tomosynthesis Bilateral Imaging Routine Breast cancer screening by mammogram Expected: 09/24/2024, Expires: 11/24/2025 documented as of this encounter Procedures Procedure Name Priority Date/Time Associated Diagnosis Comments POCT WET MOUNT/LULU Routine 09/24/2024 11 :55 AM EST Vaginal discharge CHLAMYDIA/N. GONORRHOEAE AND T. VAGINALIS RNA, QUAL,TMA Routine 09/24/2024 10:10 AM EST Vaginal discharge documented in this [...] as of this encounter Care Teams Director Family Relationship Specialty Start Date End Date Cathy Gerber ANP [address] [place] [address] PCP - General Family Medicine 06/28/22 documented as of this encounter
--- OUTSIDE RECORDS SUMMARY | 2024-10-08 12:23 | XMS_ITS | Encounter Summary ---
Author Organization [employer] Address 75 [facility] 7t [place] [address] Care Team Providers Care Recycling Collections Driver Name Role Phone Cathy Gerber Primary Care Provider [phone] Reason for Visit * Reason Comments Med Refill Encounter Details Date Type Department Care Team ([facility] st Contact Info) Description 09/24/2024 Refill [facility] MED[facility]INE [address] [place], [place] [phone] Cathy Gerber ANP [address] [place] [address] Hypertension associated with diabetes (CMS/HCC) (CMS/HCC) Social [...] Description 10/23/2024 2:30 PM EDT Office Visit [facility] MEDICINE [address] [place] [address] Cathy Gerber ANP [address] [place] [address] documented as of this encounter Visit Diagnoses Diagnosis Hypertension associated with diabetes (CMS/HCC) (CMS/HCC) Unspecified essential hypertension documented in this encounter Additional Health Concerns Assessment Noted Time PHQ-9 Depression Total Score: 0 09/12/19 24 10:17 AM EST documented as of this encounter Care Teams Recycling Collections Driver Relationship Specialty Start Date End Date Cathy Gerber ANP [address] [place] [phone] PCP - General Family Medicine 06/28/22 documented as of this encounter
--- OUTSIDE RECORDS SUMMARY | 2024-10-08 12:23 | XMS_ITS | Encounter Summary ---
Author Organization [facility] Address 75 [facility] 7t [place] [address] Care Team Providers Care Territory Outside Sales Manager Name Role Phone Cathy Gerber Primary Care Provider [phone] Reason for Visit * Reason Onset Date Comments Referral 09/15/2024 Encounter Details Date Type Department Care Team ([facility] st Contact Info) Description 09/15/2024 Telephone [facility] MEDICINE [address] [place] [address] Cathy Gerber ANP [address] [place] [address] Referral Social History Tobacco Use Types Packs/Day [...] * Telephone Encounter - MICHAEL [place] - 09/25/2024 1:03 PM EST Have placed * Telephone Encounter - Prosper Gaitan - 09/15/2024 1:45 PM EST Tc from pt requesting a New eferral for Neurology. Pt would like if Possible to get a Doctor in [place] Instead of [place]. Contact pt at [phone] documented in this encounter Plan of Treatment Upcoming Encounters Date Type Department Care Team (Late st Contact Info) Description 10/23/2024 2:30 PM EDT Office Visit [facility] MEDICINE [address] [place], [place] [phone] Cathy Gerber ANP [address] [place] [address] documented as of this encounter Visit Diagnoses Not on filedocumented in this encounter Additional Health Concerns Assessment Noted Time PHQ-9 Depression Total Score: 0 09/12/19 24 10:17 AM EST documented as of this encounter Care Teams Territory Outside Sales Manager Relationship Specialty Start Date End Date Cathy Gerber ANP [address] [place] [address] PCP - General Family Medicine 06/28/22 documented as of this encounter
--- OUTSIDE RECORDS SUMMARY | 2024-10-08 12:23 | XMS_ITS | Encounter Summary ---
Author Organization [employer] Address [address] [place] [address] 7t [place] [address] Care Team Providers Care Patrol Conductor Name Role Phone Cathy Gerber Primary Care Provider [phone] Reason for Visit * Reason Onset Date Comments Med Refill 07/05/2023 Encounter Details Date Type Department Care Team (Late st Contact Info) Description 07/05/2023 Refill [facility] MEDICINE [address] [place] [address] Cathy Gerber ANP [address] [place] [address] Gastroesophageal reflux disease, unspecified whether esophagitis present [...] - 07/05/2023 1:48 PM EST Tc from lead care manager requesting medication refill for glucose blood (FREESTYLE LITE) test strip,Lancets 33G misc and omeprazole (PriLOSEC) [address] capsule documented in this encounter Plan of Treatment Upcoming Encounters Date Type Department Care Team (Late st Contact Info) Description 10/23/2024 2:30 PM EDT Office Visit [facility] MEDICINE [address] [place] [address] Cathy Gerber ANP [address] [place], [place] [phone] documented as of this encounter Visit Diagnoses Diagnosis Gastroesophageal reflux disease, unspecified whether esophagitis present documented in this encounter Care Teams Patrol Conductor Relationship Specialty Start Date End Date Cathy Gerber ANP [address] [place] [address] [phone] PCP - General Family Medicine 06/28/22 documented as of this encounter
--- OUTSIDE RECORDS SUMMARY | 2024-10-08 12:23 | XMS_ITS | Encounter Summary ---
Author Organization [employer] [facility] Address [address] [place] [address] 7t [place] [address] Care Team Providers Care Truck Operator Name Role Phone Cathy Gerber Primary Care Provider Encounter Details Date Type Department Care Team (Late st Contact Info) Description 09/12/2022 Abstract [facility] MEDICINE [address] [place] [address] Cathy Gerber ANP [address] [place] [address] Social History Tobacco Use Types Packs/Day Years [...] Description 10/23/2024 2:30 PM EDT Office Visit [facility] MEDICINE [address] [place] [phone] Cathy Gerber ANP [address] [place] [address] documented as of this encounter Visit Diagnoses Not on filedocumented in this encounter Care Teams Truck Operator Relationship Specialty Start Date End Date Cathy Gerber ANP [address] [place] [address] PCP - General Family Medicine 06/28/22 documented as of this encounter
--- OUTSIDE RECORDS SUMMARY | 2024-10-08 12:23 | XMS_ITS | Encounter Summary ---
Author Organization [employer] Address [address] [facility] 7t [place] [address] Care Team Providers Care Orchestra Leader Name Role Phone Cathy Gerber Primary Care Provider [phone] Reason for Visit * Reason Onset Date Comments Appointment 09/23/2024 Encounter Details Date Type Department Care Team ([facility] st Contact Info) Description 09/23/2024 Telephone [facility] [address] [place] [address] Cathy Gerber ANP [address] [place] [address] Appointment Social History Tobacco Use Types Packs/Day [...] 2:30 PM EDT Office Visit [facility] MEDICINE [address] [place] [address] Cathy Gerber ANP [address] [place] [address] documented as of this encounter Visit Diagnoses Not on filedocumented in this encounter Additional Health Concerns Assessment Noted Time PHQ-9 Depression Total Score: 0 09/12/19 24 10:17 AM EST documented as of this encounter Care Teams Orchestra Leader Relationship Specialty Start Date End Date Cathy Gerber ANP [address] [place] [phone] PCP - General Family Medicine 06/28/22 documented as of this encounter
--- OUTSIDE RECORDS SUMMARY | 2024-10-08 12:24 | XMS_ITS | Encounter Summary ---
Author Organization [employer] Address [address] [facility] 7t [place] [address] Care Team Providers Care Spinning Bath Person Name Role Phone Cathy Gerber Primary Care Provider [phone] Reason for Visit * Reason Comments Med Refill Encounter Details Date Type Department Care Team ([facility] st Contact Info) Description 09/19/2023 Refill [facility] MEDICINE [address] [place], [place] [phone] Cathy Gerber ANP [address] [place] [address] Seizure disorder (CMS/HCC) Social History Tobacco Use [...] 10/23/2024 2:30 PM EDT Office Visit [facility] MEDICINE [address] [place] [address] Cathy Gerber ANP [address] [place] [address] documented as of this encounter Visit Diagnoses Diagnosis Seizure disorder (CMS/HCC) Unspecified epilepsy without mention of intractable epilepsy documented in this encounter Additional Health Concerns Assessment Noted Time PHQ-9 Depression Total Score: 0 09/12/19 24 10:17 AM EST documented as of this encounter Care Teams Spinning Bath Person Relationship Specialty Start Date End Date Cathy Gerber ANP [address] [place] [phone] PCP - General Family Medicine 06/28/22 documented as of this encounter
--- OUTSIDE RECORDS SUMMARY | 2024-10-08 12:24 | XMS_ITS | Encounter Summary ---
Author Organization [facility] Address [address] [facility] 7t [place] [address] Care Team Providers Care Employment Programs Analyst Name Role Phone Kashmir Gaming Primary Care Provider [phone] Reason for Referral * Consultation (Routine) - Authorized Specialty Diagnoses / Procedures Referred By Smitha hernandez Referred To Contact Neurology Diagnoses Seizure disorder (CMS/HCC) Kashmir Gaming ANP [address] [place], [place] Phone: tel: fax: [facility] Neurology [address] [place] [address] Phone: tel: fax: Referral ID Status Reason Start Date Expiration Date Visits Requested Visits Authorized [id number] Authorized Specialty Services Required 09/25/2024 09/25/2025 6 6 * Consultation (Routine) - Closed Specialty Diagnoses / Procedures Referred By Smitha hernandez Referred To Contact Neurology Diagnoses Seizure disorder (CMS/HCC) Alena Rae MD [address] [place], [place] Phone: tel: fax: Ramiro Danielle MD [address] [place] [address] [address] [place], [place] Phone: tel: fax: Referral ID Status Reason Start Date Expiration Date V isits Requested Visits Authorized [id number] Closed Specialty Services Required 11/14/2023 11/13/2024 6 6 Reason for Visit * Reason Comments Hospital Follow-up [facility] 10/22/2023- Dx: Cholecystitis, acute with cholelithiasis. Patient with urinary incontience and requesting Rx incontinence supplies. Patient also requesting Neurology referral if appropriate. Encounter Details Date Type Department Care Team (Latest Contact Info) Description 11/12/2023 1:45 PM EDT Office Visit [facility] MEDICINE [address] [place] [address] [phone] Alena Rae MD [address] [place], [place] [phone] Seizure disorder (CMS/HCC) (Primary Dx); Chronic pain syndrome; Restless legs; Neuropathic pain; Insomnia, unspecified type; Type 2 diabetes mellitus with hyperlipidemia (CMS/HCC) ; Posttraumatic stress disorder; Transaminitis Social History Tobacco Use Types Packs/Day Years [...] Sign Reading Time Taken Comments Blood Pressure 112/60 11/12/2023 1:55 PM EDT Pulse 80 11/12/2023 1:55 PM EDT Temperature 36.6 ??C (97.9 ??F) 11/12/2023 1:55 PM ED T Respiratory Rate 18 11/12/2023 1:55 PM EDT Oxygen Saturation 98% 11/12/2023 1:55 PM EDT Inhaled Oxygen Concentration - - Weight 95.7 kg (211 lb) 11/12/2023 1:55 PM EDT Height 149.9 cm (4' 11 ) 11/12/2023 1:55 PM EDT Body Mass Index 42.62 11/12/2023 1:55 PM EDT documented in this encounter Progress Notes * Alena Rodriguez MD - 11/12/2023 1:45 PM EDT Subjective Patient ID: Yesika Farr is a 47 y.o. female who presents for HFU HPI 47 y o F w PMX of T2DM, HTN, GERD, asthma vs COPD, former smoker, chronic pain syndrome, R hemiparesis s/p CVA, seizure d/o, RLS, anxiety, PTSD,polysubstance use. Right ear hearing loss Comes for HFU Admitted at [facility] 10/22/2023-10/24/2023 for multiple (documented 11 back to back tonic-clonic seizures) .Glucose on arrival was 151 mg/dL, all vital signs within normal limits. AST 87 and ALT 48 both elevated. Pt did confirmed used cocaine 2 days prior event .Neuro was consulted and reports weakness dueto post-ictal phase rather than previous CVA. CTA was negative and head CT shows no new acute changes. Neurology increased dose of Keppra to 1500 mg BID for 1000 mg BID. Pt states she has been complaint with her meds including w her anti seizure meds event before event. Currently reports feeling well ,denies since discharge any new episodes of seizures,states feelingback at her baseline ,denies fever,chills nor ,GI or resp symptoms. Review of Systems Constitutional: Negative for chills and fatigue. HENT: Negative. Respiratory: Negative. Gastrointestinal: Negative. Neurological: Negative for dizziness, seizures and headaches. Chronic right hemiparesis-unchaged Objective BP 112/60 (BP Location: Left arm, Patient Position: Sitting, BP Cuff Size: Large adult) Pulse 80 Temp 97.9 ??F (36.6 ??C) (Oral) Resp 18 Ht 4' 11 (1.499 m) Wt 211 lb (95.7 kg) SpO2 98% BMI 42.62 kg/m?? Physical Exam Constitutional: General: She is not in acute distress. Appearance: Normal appearance. She is obese. HENT: Head: Normocephalic. Mouth/Throat: Mouth: Mucous membranes are moist. Eyes: Pupils: Pupils are equal, round, and reactive to light. Cardiovascular: Rate and Rhythm: Normal rate and regular rhythm. Pulmonary: Effort: Pulmonary effort is normal. Breath sounds: Normal breath sounds. Abdominal: Palpations: Abdomen is soft. Musculoskeletal: Cervical back: Neck supple. Right lower leg: No edema. Left lower leg: No edema. Neurological: Mental Status: She is alert. Cranial Nerves: No cranial nerve deficit. Comments: 3/5 Right upper and lower extremities weakness -at baseline per pt ,walks w a RW Psychiatric: Mood and Affect: Mood normal. Assessment/Plan Problem List Items Addressed This Visit Nervous Chronic pain syndrome Restless legs Seizure disorder (CMS/HCC) - Primary 10/[address] shows old left parasagittal frontal parietal infarct or area of encephalomalacia andex vacuo dilatation of the left lateral ventricle [...] now -continue keppra 1500 mg BID-refilled today Relevant Orders Referral to Neurology Endocrine/Metabolic Type 2 diabetes mellitus with hyperlipidemia (CMS/HCC) -last apt w PCP in 08/2023 trulicity [...] per pharmacy was given that dose for now),once gets trulicity 3 to go back to 10 u in am of lantus as regular dosing until see PCP -has f up w PCP in 2 mo for DM f up Other Posttraumatic stress disorder -has a psychiatrist and thrapist ,refuse BH today ,states to be in better in mood , no SI Transaminitis 10/2023 AST 87, ALT 48. Denies alcohol use Pt w chronic elevated LFTs ,possible associated w fatty liver and uncontrolled DM? -pt has f up w PCP in 2 months already scheduled apt and can have labs monitored then , if no improvement will need Abd US Other Visit Diagnoses Neuropathic pain Insomnia, unspecified type Relevant Medications mirtazapine (Remeron) 7.5 MG tablet Cosigned by MICHAEL Salmon at 09/25/2024 11:30 AM EST Associated attestation - Kashmir Gaming ANP - 09/25/2024 11:30 AM EST 09/25/24 Addendum Pt requests referral to neurology in [place]. Will send. Kashmir RODRIGUEZ documented in this encounter Miscellaneous Notes * Assessment & Plan Note - Alena Rodriguez MD - 11/12/2023 6:58 PM EDTAssociated Problem(s): Transaminitis 10/2023 AST 87, ALT 48. Denies alcohol use Pt w chronic elevated LFTs ,possible associated w fatty liver and uncontrolled DM? -pt has f up w PCP in 2 months already scheduled apt and can have labs monitored then , if no improvement will need Abd US * Assessment & Plan Note - Alena Rodriguez MD - 11/12/2023 6:58 PM EDTAssociated Problem(s): Posttraumatic stress disorder -has a psychiatrist and thrapist ,refuse BH today ,states to be in better in mood , no SI * Assessment & Plan Note - Alena Rodriguez MD - 11/12/2023 6:58 PM EDTAssociated Problem(s): Type 2 diabetes mellitus with hyperlipidemia (CMS/HCC) -last apt w PCP in 08/2023 trulicity [...] per pharmacy was given that dose for now),once gets trulicity 3 to go back to 10 u in am of lantus as regular dosing until see PCP -has f up w PCP in 2 mo for DM f up * Assessment & Plan Note - Alena Rodriguez MD - 11/12/2023 6:57 PM EDTAssociated Problem(s): Seizure disorder (CMS/HCC) 10/[address] shows old left parasagittal frontal parietal infarct or area of encephalomalacia andex vacuo dilatation of the left lateral ventricle [...] now -continue keppra 1500 mg BID-refilled today * Addendum Note - MICHAEL Salmon - 11/12/2023 1:45 PM EDTAddended by: KASHMIR GAMING on: 09/25/2024 11:33 AM Modules accepted: Orders documented in this encounter Plan of Treatment Upcoming Encounters Date Type Department Care Team (Late st Contact Info) Description 10/23/2024 2:30 PM EDT Office Visit [facility] MEDICINE [address] [place] [address] Kashmir Gaming ANP [address] [place] [address] Scheduled Referrals Name Type Priority Associated Diagnoses Orde r Schedule Referral to Neurology Outpatient Referral Routine Seizure disorder (CMS/HCC) Expected: 11/12/2023 (Approximate), Expires: 11/11/2024 Referral to Neurology Outpatient Referral Routine Seizure disorder (CMS/HCC) Expected: 09/25/2024 (Approximate), Expires: 09/25/2025 documented as of this encounter Visit Diagnoses Diagnosis Seizure disorder ([facility])- Primary Unspecified epilepsy without mention of intractable epilepsy Chronic pain syndrome Restless legs Restless legs syndrome (RLS) Neuropathic pain Insomnia, unspecified type Type 2 diabetes mellitus with hyperlipidemia ([facility]) Posttraumatic stress disorder Transaminitis Nonspecific elevation of levels of transaminase or lactic acid dehydrogenase (LDH) documented in this encounter Additional Health Concerns Assessment Noted Time PHQ-9 Depression Total Score: 0 09/12/19 24 10:17 AM EST documented as of this encounter Care Teams Employment Programs Analyst Relationship Specialty Start Date End Date Kashmir Gaming ANP [address] [place] [phone] PCP - General Family Medicine 06/28/22 documented as of this encounter
--- OUTSIDE RECORDS SUMMARY | 2024-10-08 12:24 | XMS_ITS | Encounter Summary ---
Author Organization [email or web address] Address [address] [facility] 7t [place] [address] Care Team Providers Care Manufacturers Service Representative Name Role Phone Cathy Gerber Primary Care Provider [phone] Reason for Visit * Reason Onset Date Comments Prior Authorization 10/07/2023 Encounter Details Date Type Department Care Team ([facility] st Contact Info) Description 10/07/2023 Telephone [facility] MEDICINE [address] [place], [place] [phone] Cathy Gerber ANP [address] [place] [address] Prior Authorization Social History Tobacco Use Types [...] Audra Vasquez - 10/16/2023 1:55 PM EDT SUPERVISOR [employer] SPOKE WITH PATIENT NOTIFIED SHE WAS APPROVE FOR THE weendy 2 READER AND SENSOR, ADVICE TO CALL [...] Description 10/23/2024 2:30 PM EDT Office Visit [facility] MEDICINE [address] [place] [address] Cathy Gerber ANP [address] [place] [address] documented as of this encounter Visit Diagnoses Not on filedocumented in this encounter Additional Health Concerns Assessment Noted Time PHQ-9 Depression Total Score: 0 09/12/19 24 10:17 AM EST documented as of this encounter Care Teams Manufacturers Service Representative Relationship Specialty Start Date End Date Cathy Gerber ANP [address] [place] [address] PCP - General Family Medicine 06/28/22 documented as of this encounter
--- OUTSIDE RECORDS SUMMARY | 2024-10-08 12:24 | XMS_ITS | Clinical Summary ---
Author Organization [employer] [facility] Address [address] [place] [address] Care Team Providers Care Publications Writer Name Role Phone Cathy Gerber NP Primary Care Provider [phone] Social History Tobacco Use Types Packs/Day Years [...] age to complete this topic Care Teams Publications Writer Relationship Specialty Start Date End Date Cathy Gerber NP [address] [place] [phone] PCP - General 09/19/23
--- OUTSIDE RECORDS SUMMARY | 2024-10-08 12:24 | XMS_ITS | Encounter Summary ---
Author Organization [employer] [facility] Address [address] [place] [address] 7t [place] [address] Care Team Providers Care Spooling Machine Operator Name Role Phone Cathy Gerber Primary Care Provider [phone] Reason for Visit * Reason Comments Med Refill Encounter Details Date Type Department Care Team (Late Contact Info) Description 11/23/2022 Refill [facility] MEDICINE [address] [place] [address] [phone] Cathy Gerber ANP [address] [place], [place] [phone] Chronic pain syndrome Social History Tobacco Use [...] Description 10/23/2024 2:30 PM EDT Office Visit [facility] MEDICINE [address] [place] [address] Cathy Gerber ANP [address] [place], [place] [phone] documented as of this encounter Visit Diagnoses Diagnosis Chronic pain syndrome documented in this encounter Care Teams Spooling Machine Operator Relationship Specialty Start Date End Date Cathy Gerber ANP [address] [place] [address] PCP - General Family Medicine 06/28/22 documented as of this encounter
== END 2024-10-08 10:39 | disposition home or self-care (01) ==
LOC: HO.MAMMO 10:38
PROVIDERS: Visit Provider Advanced Practice Midwife
DX: Z12.31 Encounter for screening mammogram for malignant neoplasm of breast (principal)
CPT/HCPCS: 77063; 77067

== ENCOUNTER → 2024-10-08 11:15 | Outpatient (BNV) | payer MEDICAID, SELFPAY | PROVIDERS: Visit Provider Internal Medicine | DX: Z12.31 Encounter for screening mammogram for malignant neoplasm of breast (principal) | CPT/HCPCS: 77063; 77067 ==

== ENCOUNTER 2024-10-23 15:30 | Outpatient (REF) | payer MEDICAID, SELFPAY ==
--- OUTSIDE RECORDS SUMMARY | 2024-10-23 17:05 | XMS_ITS | Clinical Summary ---
Author Organization [employer] [facility] ity Address [address] [place] [address] Care Team Providers Care Doughnut Batter Mixer Name Role Phone Cathy Gerber NP Primary Care Provider [phone] Social History Tobacco Use Types Packs/Day Years [...] Td Vaccines (1 - Tdap) 1996 Hepatitis B Vaccines (1 of 3 [...] Vaccine ( - 2023-2 5 season) 2024 Diabetes: Annual Urine Albumin-Creatinine Ratio (uACR) 05/03/2024 Diabetes: Blood Sugar Contro l Test (HGBA1C) 05/03/2024 Hypertension/CHF/CAD Annual BMP Blood Test 05/03/2024 Influenza Vaccine (Season Ended) 2025 HIB Vaccines Aged Out No longer eligi [...] age to complete this topic Care Teams Doughnut Batter Mixer Relationship Specialty Start Date End Date Cathy Gerber NP [address] [place] [phone] PCP - General 09/19/23
--- OUTSIDE RECORDS SUMMARY | 2024-10-23 17:05 | XMS_ITS | Data Portability ---
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 Problems Name Problem SNOMED Code Status Onset Date Resolution Date Notes Provider Name and Address Organization Details Recorded Time Seizure disorder 334475896 Active 2019 Jose A Lassiter MD [address] , [address], [place], [address], [facility] [employer] 0 13:55:28 Generalized anxiety disorder 83084747 Active 2019 MARK Ramirez [address], [address], [place], [address], [facility] 0 09:49:37 SARS-CoV-2 Active 2019 RICKEY RamirezP [address], [address], [place], [address], [facility] 0 15:33:01 Liver enzymes level above reference range 703491517 Active 2019 MARK Ramirez [address], [address], [place], [address], [facility] 0 15:39:51 Neuropathy 109879140 Active 2019 Moraima Hanson MD [address], [address], [place], [address], [facility] 0 01:05:16 Asthma 554183329 Active 2020 Kristi [place] null, [facility] 1 14:43:52 Restless legs 58639207 Active 2020 Moraima Hanson MD [address], [address], [place], [address], [facility] 1 19:06:32 Hemiplegia and/or hemiparesis following stroke 1650732866467 7 Active 2018 Moraima Hanson MD [address], [address], [place], [address], [facility] 9 14:54:01 Essential hypertensio n 38790459 Active 2018 Moraima Hanson MD [address], [address], [place], [address], [facility] 9 14:57:00 History of cocaine abuse 2846565387568 06 Active 2018 Moraima Hanson MD [address], [address], [place], [address], [facility] 9 14:57:30 Schizoaffec tive disorder, mixed type 685175851 Active 2018 Moraima Hanson MD [address], [address], [place], [address], [place] [facility] 9 14:59:21 Insomnia 823899448 Active 2018 Moraima Hanson MD [address], [address], [place], [address], [facility] 9 15:02:16 History of alcoholism 325145528 Active 2018 Moraima Hanson MD [address], [address], [place], [address], [facility] 9 15:05:25 Chronic pain syndrome 642116727 Active 2018 Moraima Hanson MD [address], [address], [place], [address], [employer] 9 01:07:55 Diabetes mellitus 63267448 Active 2019 Kristi Hernandez [facility], [employer] 0 11:07:50 Problem Notes None recorded. Medical Equipment None Reported. Allergies No known drug allergies Medications Not known to be on any medication Vitals Date Recorded Body height Systolic blood pressure Diastolic blood pressure Provider Name and Address Organization Details Last Updated DateTime 02/28/2021 142.24 cm 125 mm[Hg] 86 mm[Hg] Kristi Hernandez [place] [employer] 02/28/2021 10:01:32 Date Recorded Body height Heart rate Respiratory rate Body temperature Oxygen saturation Oxygen saturation in Arterial blood by Pulse oximetry Systolic blood pressure Diastolic blood pressure Provider Name and Address Organization Details Last Updated DateTime 142.24 cm 95 /min 20 /min 97.5 [degF] 96 % 96 % 129 mm[Hg] 87 mm[Hg] MARK Ramirez [address], [address], [place], [address], [employer] 1 11:18:00 Date Recorded Body height Systolic blood pressure Diastolic blood pressure Provider Name and Address Organization Details Last Updated DateTime 04/10/2021 142.24 cm 126 mm[Hg] 79 mm[Hg] Kristi Hernandez [facility] [employer] 04/10/2021 15:45:20 Date Recorded Body height Body temperature Systolic blood pressure Diastolic blood pressure Provider Name and Address Organization Details Last Updated DateTime 04/21/2021 142.24 cm 97.1 [degF] 132 mm[Hg] 82 mm[Hg] BIMAL NGUYEN [address], [address], [place], [address] , [email or web address] 12:15:12 Date Recorded Body height Body temperature Heart rate Respiratory rate Oxygen saturation Oxygen saturation in Arterial blood by Pulse oximetry Body mass index (BMI) Body weight Systolic blood pressure Diastolic blood pressure Provider Name and Address Organization Details Last Updated DateTime 142.24 cm 97.3 [degF] 84 /min 18 /min 97 % 97 % 53.9 kg/m2 734914. 25 g 132 mm[Hg] 82 mm[Hg] EM NAIR PA-C [address] [facility] [address], [place], [address], [email or web address] 21:23:07 Social History Question Answer Notes LastModified by Organizat ion Details LastModified Time Tobacco Smoking Status Former Smoker hasn't smoked since CVA in 11/07 Not Available [employer] 05/17/2020 03:13:22 Do You Have An Advance Directive? Yes Full Code [id number] Information not available 05/17/2020 What Is Your Level Of Alcohol Consumption? None Hx Of Heavy Use [id number] Information not available 05/17/2020 How Much Tobacco Do You Chew? None [id number] Information not available 05/17/2020 Do You Or Have You Ever Used E-cigarettes Or Vape? Former User Of Electronic Cigarettes [id number] Information not available 05/17/2020 Do You Have A Medical Power Of Airport Skilled Maintenance Supervisor? No [id number] Information not available 05/17/2020 What Was The Date Of Your Most Recent Tobacco Screening? 10/28/2020 [email or web address] Information not available 11/05/2020 Do You Or Have You Ever Used Smokeless Tobacco? Never Used Smokeless Tobacco [id number] Information not available 05/17/2020 How Much Tobacco Do You Smoke? No [id number] Information not available 05/17/2020 How Many Years Have You Smoked Tobacco? 25 [id number] Information not available 05/17/2020 Sex: Unknown Functional [...] mcg/0.3 mL dose 08/24/2020 completed Loisberyl [facility] 10/25/2020 14:49:01 COVID-19, mRNA, LNP-S, PF, 30 mcg/0.3 mL dose 08/03/2020 completed Lois [facility] 10/25/2020 14:49:09 Past Encounters Encounter ID Performer Location Encounter Start Date Encounter Closed Date Diagnosis/Indication Diagnosis SNOMED-CT Code Diagnosis ICD10 Code Diagnosis Note [id number] Moraima Hanson MD [facility] on [address] [place] [address] 07/16/2019 13:30:56 07/29/2019 16:09:58 Hemiplegia and/or hemiparesis following stroke 5926549894 9107 I69.151 With minimal function of RLE and better, but not normal function of RUE. Needs PT/OT for strengthen ing and function. Hopefully will still have continued improvemen t. Essential hypertension 48488278 I10 Elevated this AM, then improved. May be due to new environmen t. Monitor closely and adjust meds as needed. parameters are SBP<130 and DBP<80. Continue lisinopril 10 mg qd and doxazosin 1 mg qd. Also on clonidine 0.2 mg BID. for mood which will help BP. Monitor BP and labs. History of cocaine abuse 3594325281 27269 F14.10 No use in 8 months. Will likely be LTC. Monitor for urge to use. Schizoaffe ctive disorder, mixed type 175070699 F25.0 With psych involvemen t at prior facility. With depression regarding physical limitation s. Continue Cymbalta 30 mg BID, Remeron 7.5 mg qhs, Buspar 10 mg TID, Abilify 7.5 mg qd, and clonidine 0.2 mg BID. Psych consult. Chronic pain syndrome 37 2953534 G89.4 With right leg pain since stroke. Parasthesi as. She says gabapentin doesn't help. May need increased dose, but for now will continue gabapentin 600 mg QID, lidoderm patch, cyclobenza lalo 10 mg BID and ibuprofen 400 mg TID prn. Insomnia 384434132 G47.0 9 Meds as above. Monitor sleep patterns. History of alcoholism 16 8283780 F10.21 Continue Folic acid and thiamine. Monitor [id number] Kristi Hernandez [facility] on [address] [place] [id number] 07/27/2019 10:31:51 08/04/2019 16:25:19 Hemiplegia and/or hemiparesis following stroke 7672027616 9107 I69.151 With minimal function of RLE and better, but not normal function of RUE.Cont PT/OT Essential hypertension 45365361 I10 BP mostly well controlled Continue lisinopril 10 mg qd and doxazosin 1 mg qd. Monitor BP and labs. Schizoaffe ctive disorder, mixed type 283396610 F25.0 Continue Cymbalta 30 mg BID, Remeron 7.5 mg qhs, Buspar 10 mg TID, Abilify 7.5 mg qd, and clonidine 0.2 mg BID. Psych consult. History of alcoholism 16 4928678 F10.21 Continue Folic acid and thiamine. Monitor Diabetes mellitus 694313 09 E11.9 Add metformin 500 mg BIDSliding scale insulin TID-will attempt to d/c this if can control glucose with oral agentsObta in HbA1c now-was 5.4 in r blood glucose [id number] Kristi Hernandez [facility] on [address] [place] [address] 08/03/2019 14:54:49 08/05/2019 13:34:01 Diabetes mellitus 85839412 E11.9 Increase metformin 850 mg BID-goal to d/c sliding scale insulin if can control with oral agents aloneSlidi ng scale insulin TIDMonitor blood glucose [id number] Kristi Hernandez [facility] on [address] [place] [id number] 08/12/2019 08:07:16 08/14/2019 16:30:28 Diabetes mellitus 32328015 E11.9 Increase metformin 1000 mg BIDSliding scale insulin TIDMonitor blood glucose Repeat HbA1c in October Hemiplegia and/or hemiparesis following stroke 7655674617 9107 I69.151 With minimal function of RLE and better, but not normal function of RUE.Cont PT/OT Essential hypertension 59852863 I10 BP well controlled Continue lisinopril 10 mg qd and doxazosin 1 mg qd. Monitor BP and labs. Schizoaffe ctive disorder, mixed type 416029317 F25.0 Continue Cymbalta 30 mg BID, Remeron 7.5 mg qhs, Buspar 10 mg TID, Abilify 7.5 mg qd, and clonidine 0.2 mg BID. Psych consult. History of alcoholism 16 6096397 F10.21 Continue Folic acid and thiamine. Monitor Insomnia 919880043 G47.0 9 Previously on trazodone and seroquel however states these medication s caused her to gain weightMela tonin ineffectiv e per patientWil l [place] [id number] Kristi Ames [facility] on [address] [place] [id number] 08/17/2019 12:32:07 08/25/2019 08:58:18 Tonic-clonic seizure 89144823 G40.309 Send to ED to r/o new onset seizure disorder Diabetes mellitus 351454 09 E11.9 Metformin 1000 mg BIDSliding scale insulin TIDMonitor blood glucose-cu rrently stable Hemiplegia and/or hemiparesis following stroke 8220228609 9107 I69.151 With minimal function of RLE and better, but not normal function of RUE.Cont PT/OT [id number] [facility] [address] [place] [id number] 08/18/2019 11:16:05 08/25/2019 09:28:10 Tonic-clonic seizure 75770058 G40.309 Request neurology consult for seizure work-upMon itor for further seizure activity Hemiplegia and/or hemiparesis following stroke 5139629648 9107 I69.151 With minimal function of RLE and better, but not normal function of RUE.Cont PT/OT [id number] [facility] [address] [place] [id number] 08/31/2019 12:41:20 09/03/2019 09:55:53 Tonic-clonic seizure 75392662 G40.309 Was recently started on KeppraNeur o consult states if skin change/noble h develops to immediatel y d/c medKeppra now d/c'dWill have nursing update neurology and request alternativ e medSeizure precaution s in place [id number] Jose A Lassiter MD [facility] on [address] [place] [phone] 09/15/2019 13:51:15 09/21/2019 15:28:53 Seizure disorder 238766603 G40.89 eval by dano agudelo keppra to 500 mg bidcheck level in 2 weeksmonit or for activityEE G to be scheduled through neuro Essential hypertension 44358156 I10 doxazosin 1 mg qdclonidin e 0.2 mg bidlisinop ril 10 mg qdmonitor bptitrate if elevating Schizoaffe ctive disorder, mixed type 948861349 F25.0 at baselineco ntinue supportive carepsych [place] [id number] MARK Ramirez [facility] on [address] [place] [id number] 09/21/2019 09:32:37 09/24/2019 10:57:41 Chronic pain syndrome 014222957 G89.4 will trial tramadol 25 mg 1 q 12 hrs prn paincontin ue tylenol prn and gabapentin 600 mg q 6 hrsmonitor for pain relief though would avoid increasing med 2/2 hx of polysubsta nce abuseif tramadol doesn't help then it should be discontinu ed Generalize d anxiety disorder 32831169 F41.1 will trial atarax 25 mg 1 q 6 hrs prn anxietyavo id benzos with hx of polysubsta nce abuse [id number] Kristi Hernandez [facility] on [address] [place] [id number] 10/13/2019 13:34:08 10/20/2019 14:48:17 Diabetes mellitus 94760343 E11.9 Metformin 1000 mg BIDAdd lantus 8 units QHS Sliding scale insulin TIDMonitor blood glucoseRep eat HbA1c Olivia Essential hypertension 78296328 I10 BP well controlled Continue lisinopril 10 mg qd and doxazosin 1 mg qd. Monitor BP and labs. Hemiplegia and/or hemiparesis following stroke 4930687252 9107 I69.151 With right hemiparesi sCont PT/OT Seizure disorder 3760549 02 G40.89 eval by neurologyk eppra 500 mg bidf/u with neuro as scheduled Schizoaffe ctive disorder, mixed type 809309506 F25.0 at baselineco ntinue supportive carepsych [place] [id number] Kristi Hernandez [facility] on [address] [place] [phone] 10/27/2019 13:10:01 10/29/2019 10:33:47 Diabetes mellitus 05268064 E11.9 Metformin 1000 mg BIDIncreas e lantus 16 units QHSSS insulin TIDMonitor blood sugars [id number] Kristi Hernandez [facility] on [address] [place] [id number] 11/02/2019 11:10:12 11/03/2019 18:04:58 Seizure disorder 986719652 G40.89 Increase keppra 1000 mg bidKeppra level in 1 weekMonito r for activityf/ u with neuro as scheduled [id number] BIMAL NGUYEN [facility] on [address] [place] [id number] 11/09/2019 14:26:42 11/17/2019 08:35:51 Tachycardia 2392734 R00.0 Z20.828 COVID 19 swab nowroom on precaution s [id number] MARK Ramirez [facility] on [address] [place] [id number] 11/12/2019 15:25:48 11/17/2019 09:48:53 SARS-CoV-2 445535384 U07.1 monitor temp, sats q shiftmonit or for change in status, resp or gi distresssu pportive careO2 prn hypoxiaIV fluids if pt becomes dehydrated dc ibuprofen Liver enzy mes level above reference range 877096931 R74.8 dc tylenolCMP weekly on Mondaysdc metformin due to liver injury as belowconsi chelsea further med review if LFTs remain elevated Diabetes mellitus 661018 09 E11.9 dc metformin due to liver injury 2/2 COVID with elevated liver enzymescon tinue humalog sliding scalemonit or accuchecks TIDstart lantus 5 units q pm and adjust as needed [id number] Moraima Hanson MD [facility] on [address] [place] [phone] 11/13/2019 13:17:23 11/17/2019 10:21:57 SARS-CoV-2 217981664 U07.1 Continue to monitor closely for hypoxia or fever. Also monitor po intake and use IV fluids if needed.O2 prn for hypoxia.No w with cough, but normal lung sounds. No CXR needed at this point. Liver enzy mes level above reference range 423068492 R74.8 Hepatotoxi c meds d/c'd yest. Had nl. LFTs when checked in 07/2019. Continue to monitor for worsening. Avoid hepatotoxi c meds as able. Cannot d/c keppra. Diabetes mellitus 774080 09 E11.9 Metformin d/c'd yest. Continue to monitor accuchecks TID and continue lantus 5 units qpm [id number] BIMAL [facility] on [address] [place] [phone] 11/19/2019 15:14:46 11/26/2019 15:08:13 SARS-CoV-2 187033122 U07.1 Continue to monitor closely for hypoxia or fever. Also monitor po intake and use IV fluids if needed.O2 prn for hypoxia.No w with cough, but normal lung sounds. No CXR needed at this point. Liver enzy mes level above reference range 756099067 R74.8 will repeat next week to see if improved Diabetes mellitus 373034 09 E11.9 add back metformin 500 mg BID Continue to monitor accuchecks TID and continue lantus 5 units qpm, may need to increase as her sugars are poorly controlled and were not much better on the metformin alone [id number] BIMAL [facility] on [address] [place] [phone] 11/23/2019 16:15:36 11/27/2019 08:47:48 SARS-CoV-2 728047996 U07.1 Continue to monitor closely for hypoxia or fever. Also monitor po intake and use IV fluids if needed.O2 prn for hypoxia.No w with cough, but normal lung sounds. No CXR needed at this point. Liver enzy mes level above reference range 163702547 R74.8 repeat LFTs tomorrow Diabetes mellitus 274115 09 E11.9 continue metformin 500 mg BID increase lantus to 7 units QHS monitor accuchecks QID [id number] BIMAL SCYNEXIS [facility] on [address] [place] [phone] 11/24/2019 13:01:25 11/27/2019 09:25:49 SARS-CoV-2 364118532 U07.1 patient asymptomat ic,only dry cough likely on the end of illness monitor for symptom based resolution continue to monitor vitals Liver enzy mes level above reference range 399397490 R74.8 repeat LFTs tomorrow Diabetes mellitus 062102 E11.9 continue metformin 500 mg BID increase lantus to 7 units QHS monitor accuchecks QID [id number] [facility] [address] [place] [phone] 11/25/2019 19:25:08 11/27/2019 10:23:44 SARS-CoV-2 017194236 U07.1 patient asymptomat ic,only dry cough likely on the end of illness monitor for symptom based resolution continue to monitor vitals may come off precaution s 12/07 Liver enzy mes level above reference range 914354609 R74.8 much improved 80/76consi chelsea increase metformin to 1000 mg BID Diabetes mellitus 200970 09 E11.9 continue metformin 500 mg BID- consider increase to 1000 mg BID increase lantus to 10 units QHS monitor accuchecks QID [id number] BIMAL SCYNEXIS [facility] on [address] [place] [phone] 12/02/2019 11:51:27 12/08/2019 10:28:31 SARS-CoV-2 817422021 U07.1 Resolved and now off precaution s Liver enzy mes level above reference range 413761663 R74.8 much improved 80/76 Diabetes mellitus 234670 09 E11.9 Increase metformin to 1000 mg BID continue lantus to 10 units QHS monitor accuchecks QID- may increase lantus if needed [id number] Jose A Lassiter MD [facility] on [address] [place] [phone] 12/10/2019 14:10:05 12/15/2019 09:57:22 SARS-CoV-2 129954556 U07.1 recent dxnow appears past acute phase in recovery towards baselinemo nitor for change in presentati on and secondary infection Schizoaffe ctive disorder, mixed type 353359025 F25.0 currently stable at baselineco ntinue supportive carepsych to followtitr ate meds prn Essential hypertension 04749994 I10 continue current meds monitor bptitrate as needed if not responding [id number] [facility] Hernandez [facility] on [address] [place] [id number] 01/01/2020 13:07:57 01/05/2020 09:45:19 Piercing of external ear 991139959 Z41.3 No signs of infection currentlyR eviewed proper care of piercing to avoid potential infectionA hampton that piercings will need to be removed if become infectedWi ll monitor [id number] Kristi Hernandez [facility] on [address] [place] [address] 02/03/2020 15:09:59 02/09/2020 14:21:38 Fall 5150706 R29.6 Ambulates with walker independen tlyPT eval Pain in ri ght hip joint 6384464469 06507 M25.551 Able to weight bear without painNo deformity of legDo not feel x-ray is needed at this timeWill monitor and if pain persists consider imaging [id number] MARK Ramirez [facility] on [address] [place] [id number] 02/04/2020 15:33:22 02/09/2020 14:34:16 SARS-CoV-2 156203492 U07.1 recovered Schizoaffe ctive disorder, mixed type 724132855 F25.0 supportive careremero n 7.5 mg qhscymbalt a 30 mg bidbuspar 10 mg tidpsych prnadjust meds prn Essential hypertension 18289763 I10 bp elevated most of the timewill increase lisinopril to 20 mg qdclonidin e 0.2 mg biddoxazos in 1 mg qdmonitor bp daily and check CMP on 02/07adjust meds prn Diabetes mellitus 849725 09 E11.9 off metformin due to liver injury 2/2 COVID with elevated liver enzymesast /alt 78/75 on continue humalog sliding scalemonit or accuchecks TIDincreas e lantus to 15 units q pm and adjust as needed [id number] Kristi Hernandez [facility] [address] [place] [phone] 02/05/2020 16:44:28 02/09/2020 14:23:45 Gastroesophageal reflux disease without esophagitis 079046079 K21.9 Add tums PRNIf sxs persist will add PPIMonitor Essential hypertension 34033263 I10 Lisinopril increased 20 mg daily 02/03 BP currently stable Monitor bp and adjust meds PRN [id number] MARK Ramirez [facility] on [address] [place] [phone] 3 02/12/2020 13:40:20 02/16/2020 13:34:57 Chronic pain syndrome 213394238 G89.4 continue tramadol 25 mg 1 q 12 hrs prn paincontin ue tylenol prn and gabapentin 600 mg q 6 hrsmonitor for pain relief though would avoid increasing med 2/2 hx of polysubsta nce abusewill increase flexeril to 20 mg qhs and continue flexeril 10 mg bidmonitor for relief Insomnia 935746934 G47.0 9 continue trazodone 50 mg qhswill add trazodone 50 mg qhs prn insomniamo nitor for effect [id number] Kristi Hernandez [facility] on [address] [place] [phone] 3 02/19/2020 13:55:41 02/24/2020 10:55:41 Dysuria 94877752 R30.0 Obtain UA, C&S nowEncoura ge fluids Monitor [id number] Kristi Hernandez [facility] on [address] [place] [id number] 3 03/08/2020 10:49:53 03/15/2020 11:56:31 Hemiplegia and/or hemiparesis following stroke 4055967356 9107 I69.151 Increased neuropathi c painSuppor tive care Neuropathy 070478339 G62 .89 Increase gabapentin 900 mg TIDAlso has tramadol PRN Monitor for pain control [id number] Kristi Hernandez [facility] on [address] [place] [address] [phone] 3 03/18/2020 09:56:58 03/22/2020 10:02:41 Diabetes mellitus 97447628 E11.9 Metformin 1000 mg BIDIncreas e Lantus 25 units QHS continue humalog sliding scalemonit or accuchecks TID Liver enzy mes level above reference range 844381856 R74.8 Last checked 02/07Will repeat 03/21If remain elevated will check hepatitis panel [id number] Kristi Hernandez [facility] on [address] [place] [id number] 3 03/21/2020 09:14:12 03/24/2020 11:17:51 Edema of lower extremity 180633995 R60.0 Mild edema of R legEncoura ge elevationC ompression stocking to R leg on AM, off HSMonitor [id number] Moraima Hanson MD [facility] on [address] [place] [phone] 3 03/25/2020 16:08:10 03/30/2020 10:14:54 Diabetes mellitus 34001269 E11.9 With very elevated HgA1C in 10/2019, and with high daily accuchecks .Lantus just increased from 15U to 25U on 03/18 Continue Metformin 1000 mg BID and humalog sliding scaleMonit or accuchecks TID and recheck HgA1C on 03/29. Liver enzy mes level above reference range 577628547 R74.8 Almost WNL on 03/21Hepati tis panel neg.Likely fatty liver.Will recheck with next labs and consider GI consult if still elevated. Neuropathy 331785085 G62 .89 With continued pain into right [...] pain control Hemiplegia and/or hemiparesis following stroke 0813819056 9107 I69.151 Increased neuropathi c pain as above. Continue Supportive care Chronic pain syndrome 37 9974527 G89.4 Meds as above, also cyclobenza lalo 20 mg qhs and 10 mg bidMonitor pain sxs. Insomnia 277344579 G47.0 9 Continue trazodone 50 mg qhs and repeat prn insomniaMo nitor sleep patterns. SARS-CoV-2 351559077 U07 .1 recovered Monitor for sequelae. Schizoaffe ctive disorder, mixed type 617565661 F25.0 Mood good.Muriel nue remeron 7.5 mg qhs, cymbalta 30 mg BID, buspar 10 mg TID and hydroxyzin e 25 mg q 6 hrs prn.Psych involved. Essential hypertension 52413724 I10 BP in good control.Co ntinue lisinopril 20 mg qd, clonidine 0.2 mg BID and doxazosin 1 mg qdMonitor BP and labs. Seizure disorder 2701108 02 G40.802 No recent seizure activity. Continue keppra 1000 mg BID. Monitor for seizure as activity. [id number] Kristi Hernandez [facility] on [address] [place] [address] [phone] 3 04/06/2020 12:13:46 04/08/2020 11:49:58 Diabetes mellitus 62295471 E11.9 Metformin 1000 mg BIDLantus 25 units QHSAdd Trulicity 0.75 mg Qweekly continue humalog sliding scalemonit or accuchecks TID [id number] Kristi Hernandez [facility] on [address] [place] [address] [phone] 3 04/08/2020 13:41:20 04/11/2020 16:13:48 Anxiety 64710932 F41.1 D/c buspar, remeron as feels these are ineffectiv eWill add clonazepam 0.5 mg QPMCont cymbalta and clonidineM onitor for effect Insomnia 162094117 G47.0 9 Add melatonin 5 mg QHSMonitor [id number] Cindy Mireles [facility] on [address] [place] [address] [phone] 3 05/12/2020 09:29:01 05/16/2020 15:19:23 Anxiety 53755040 F41.1 appears stable at this timecontin ue clonazepam 0.5 mg QPM- as started on 04/08Contin ues on cymbalta and clonidineM onitor for effect Diabetes mellitus 612601 09 E11.9 Metformin 1000 mg BIDLantus 25 units QHSTrulici ty 0.75 mg Qweekly humalog sliding scalemonit or accuchecks TID Neuropathy 707749517 G62 .89 With continued pain into right [...] pain control Hemiplegia and/or hemiparesis following stroke 4697856704 9107 I69.151 with neuropathi c pain as above. Continue Supportive care Chronic pain syndrome 37 9989552 G89.4 tramadol 25mg bidgabapen tin 900mg bid and 1200qhscyc lobenzapri ne 20 mg qhs and 10 mg bidpt also on ropinerole 0.5mg qhs for restless legsMonito r pain sxs. Essential hypertension 63140385 I10 stablelisi nopril 20 mg qdclonidin e 0.2 mg BIDdoxazos in 1 mg qdMonitor BP and labs. Insomnia 126921564 G47.0 9 trazodone 50mg qhs monitor for effect [id number] Cindy Mireles [facility] on [address] [place] [address] 05/19/2020 11:54:46 05/23/2020 16:16:27 Neuropathy 869642266 G62.89 With continued pain into right leg [...] as aboveMonit or for pain control Anxiety 25318452 F41.1 stable at this timeclonaz epam 0.5 mg QPM- as started on 04/08cymbal ta and clonidineM onitor for effect Chronic pain syndrome 37 0197174 G89.4 tramadol 25mg bidgabapen tin 900mg bid and 1200qhscyc lobenzapri ne 20 mg qhs and 10 mg bidropiner ole 0.5mg qhs for restless legsMonito r pain sxs. Diabetes mellitus 692969 09 E11.9 Metformin 1000 mg BIDLantus 25 units QHSTrulici ty 0.75 mg Qweekly humalog sliding scalemonit or accuchecks TID Essential hypertension 82567669 I10 stablelisi nopril 20 mg qdclonidin e 0.2 mg BIDdoxazos in 1 mg qdMonitor BP and labs. Morbid obesity 469701452 E66.01 discussion with pt today about weight being a factor in her chronic pain/neuro misty and would benefit greatly from weight loss- she plans to walk the hallways more.encou rage weight lossdietar y eval prn [id number] Kristi Mary [facility] on [address] [place] [address] [id number] 3 05/25/2020 14:00:25 05/27/2020 14:19:01 Diabetes mellitus 23993364 E11.9 HbA1c remains above goalIncrea se Trulicity 1.5 mg QweeklyCon tMetformin 1000 mg BIDLantus 25 units QHScontinu e humalog sliding scalemonit or accuchecks TID [id number] Linda Vazquez MD [facility] on [address] [place] [address] [phone] 3 07/13/2020 07:12:00 07/19/2020 15:35:48 Chronic pain syndrome 345431227 G89.4 cyclobenza lalo 20 mg at hs and 10 mg bidtramado l 25 mg q12h prnduloxet ine 30 mg bidgabapen tin 900 mg bid and 1200 mg at hswill monitor Diabetes mellitus 045840 09 E13.42 Trulicity 1.5 mg weekly SCLantus 25U at hs will monitor Essential hypertension 88200782 I10 doxazosin 1 mg dailycloni dine 0.2 mg bidlisinop ril 20 mg dailywill monitor SARS-CoV-2 177264216 U07 .1 diagnosed 11/11/19rec overed Mixed anxi ety and depressive disorder 825520953 F41.8 clonazepam 0.5 mg dailytrazo done 50 mg at hsduloxeti ne 30 mg bidhydroxy zine 25 mg q6h prnwill monitorMed Options prn Seizure disorder 6603546 02 G40.909 levetirace munoz 1000 mg bidwill monitor [id number] Kristi Hernandez [facility] on [address] [place] [address] [phone] 3 07/25/2020 13:05:51 07/29/2020 09:55:07 Hordeolum externum of upper eyelid of left eye 3473339245 69712 H00.014 With concern for possible cellulitis Start Keflex 500 mg PO, q 6 hrs for 7 days.Cultu relle BID for 10 days.D/C erythromyc in.Polytri m 1 gtt to left eye daily for 7 days.Warm compresses to eye TIDMonitor closely [id number] [facility] [address] [place] [address] [phone] 3 08/05/2020 11:06:21 08/08/2020 15:13:54 Insomnia 117512565 G47.09 Increase trazodone 75 mg QHSMonitor for effect [id number] Kristi [facility] on [address] [place] [address] [phone] 3 08/08/2020 12:03:49 08/10/2020 13:44:13 Diabetes mellitus 79479518 E11.9 Blood sugars appear improvedTr ulicity 1.5 mg Qweekly Metformin 1000 mg BID Lantus 25 units QHSHumalog sliding scale TIDmonitor accuchecks Repeat HbA1c in Feb Hemiplegia and/or hemiparesis following stroke 1237913380 9107 I69.151 Ambulates with walker Encouraged to increase physical activity as tolerated Supportive care Chronic pain syndrome 37 6677293 G89.4 Cymbalta 30 mg BIDMonitor for pain control Insomnia 606536059 G47.0 9 D/c trazodone as is ineffectiv eCurrently has klonopin scheduled in afternoon- will change to bedtimeMon itorConsid er d/c klonopin and start ambien if insomnia not improving Schizoaffe ctive disorder, mixed type 941127253 F25.0 Mood good.Muriel nue remeron 7.5 mg qhs, cymbalta 30 mg BID, buspar 10 mg TID and hydroxyzin e 25 mg q 6 hrs prn.Psych involved. Essential hypertension 36402295 I10 BP in good control.Co ntinue lisinopril 20 mg qd, clonidine 0.2 mg BID and doxazosin 1 mg qdMonitor BP and labs. Seizure disorder 5398317 02 G40.802 No recent seizure activity. Continue keppra 1000 mg BID. Monitor for seizure as activity. [id number] BIMAL NGUYEN [facility] on [address] [place] [address] [phone] 3 08/12/2020 12:30:44 08/15/2020 16:37:05 Hemiplegia and/or hemiparesis following stroke 1871675606 9107 I69.151 Ambulates with walker Encouraged to increase physical activity as tolerated Supportive care Chronic pain syndrome 37 1248523 G89.4 Cymbalta 30 mg BIDtramado l 25 mg BID PRNadd ibuprofen 600 mg qhs and BID PRNconside r increase in tramadol if not effectiveM onitor for pain control [id number] Kristi Hernandez [facility] on [address] [place] [address] [phone] 3 08/15/2020 14:44:34 08/17/2020 12:10:36 Broken tooth without complication 28664282 S02.5XXA Left bottom central incisor with significan t decay/appe ars brokenRequ est dental consultAdd orajel PRN for tooth painMonito r [id number] Kristi Hernandez [facility] on [address] [place] [address] [phone] 3 08/24/2020 09:43:08 08/26/2020 09:06:58 Essential hypertension 76875084 I10 BP often elevatedIn crease lisinopril 40 mg dailyCloni dine 0.2 mg BIDDoxazos in 1 mg qd Monitor BP and labs. Insomnia 491358621 G47.0 9 Will add ambien 5 mg QHS prnMonitor for effect [id number] Kristi Hernandez [facility] on [address] [place] [address] [phone] 3 08/31/2020 14:38:05 09/01/2020 16:21:10 Asthma 311828108 J45.40 Albuterol inhaler PRNAdd Flovent HFA BIDMonitor resp status [id number] Kristi Hernandez [facility] on [address] [place] [address] [phone] 3 09/09/2020 13:14:26 09/12/2020 13:28:51 Diabetes mellitus 02017108 E11.9 Blood sugars now elevated, HbA1c improved but not yet at goalGoal HbA1c <8.0Increa se Lantus 35 units QHSContTru licity 1.5 mg Qweekly Metformin 1000 mg BID Humalog sliding scale TID monitor accuchecks Repeat HbA1c as ordered Hemiplegia and/or hemiparesis following stroke 8922390909 9107 I69.151 Ambulates with walker Encouraged to increase physical activity as tolerated Supportive care Chronic pain syndrome 37 1638319 G89.4 Cymbalta 30 mg BIDMonitor for pain control Schizoaffe ctive disorder, mixed type 717351683 F25.0 Mood good.Muriel nue remeron 7.5 mg qhs, cymbalta 30 mg BID, buspar 10 mg TID and hydroxyzin e 25 mg q 6 hrs prn.Psych involved. Essential hypertension 93605629 I10 BP in good control.Co ntinue lisinopril 20 mg qd, clonidine 0.2 mg BID and doxazosin 1 mg qdMonitor BP and labs. Seizure disorder 1702688 02 G40.802 No recent seizure activity. Continue keppra 1000 mg BID. Monitor for seizure as activity. Bacterial vaginosis 4197 72970 N76.0 Treat with MetroGel 0.75% QHS x 5 daysMonito r to resolution Refer to [employer] as patient likely needs routine gynecologi arina care/PAP smear [id number] Kristi Hernandez [facility] on [address] [place] [address] 09/20/2020 09:42:48 09/21/2020 16:25:13 Cough 54386926 R05 Add Mucinex 400 mg BID x 5 daysEncour age fluidsMoni tor and if worsening or other sxs develop consider CXR [id number] Moraima Hanson MD [facility] on [address] [place] [address] 10/28/2020 19:36:53 11/08/2020 14:55:28 Diabetes mellitus 10407073 E11.9 HgA1C much improved since starting trulicity in 05/2020, but still >8.0, So Lantus increased on 09/10/20. Continue Lantus 35 units QHS,, Trulicity 1.5 mg weekly, metformin 1000 mg BID and SSI. Monitor accuchecks TID and HgA1C q 3 months. Hemiplegia and/or hemiparesis following stroke 1356885813 9107 I69.151 Mostly in wheelchair . Continue to encourage increased physical activity as tolerated Supportive care Chronic pain syndrome 37 2185398 G89.4 As above. Schizoaffe ctive disorder, mixed type 838531509 F25.0 Mood good. Continue meds as above. Psych involved. Essential hypertension 40291496 I10 BP in good control. Continue lisinopril 40 mg qd, clonidine 0.2 mg BID and doxazosin 1 mg qd Monitor BP and labs. Seizure disorder 2671569 02 G40.802 No recent seizure activity. Continue keppra 1000 mg BID. Monitor for seizure as activity. Neuropathy 205163513 G62 .89 C/O continued pain into right leg and foot. Will increase gabapentin from 900 mg BID and 1200 qhs to 1200 mg TID. Monitor for sx relief or oversedati on. Continue tramadol 25 mg BID prn and duloxetine 30 mg BID Monitor for pain control Liver enzy mes level above reference range 054652420 R74.8 Almost WNL on 03/21 Hepatitis panel neg. Likely fatty liver. Not rechecked since 02/2020 Will recheck on 10/31 and consider GI consult if still elevated. Insomnia 373141301 G47.0 9 Continue melatonin 5 mg qhs and ambien 5 mg qhs. Monitor sleep patterns. SARS-CoV-2 902845403 U07 .1 recovered Monitor for sequelae. Restless legs 49761694 G 25.81 Continue ropinirole 0.5 mg qhs. [id number] Kristi Hernandez [facility] on [address] [place] [address] [phone] 3 11/07/2020 12:49:40 11/09/2020 09:05:40 Gastroesophageal reflux disease without esophagitis 500870399 K21.9 Add Prilosec 20 mg daily D/c ibuprofen as this can exacerbate sxs Tums PRN Monitor sxs Essential hypertension 02652790 I10 BP elevated above goal Lisinopril 40 mg daily Increase Doxazosin 2 mg daily Clonidine 0.2 mg BID Monitor [id number] Kristi Hernandez [facility] on [address] [place] [address] [phone] 3 11/16/2020 11:27:49 11/18/2020 11:03:47 Allergic rhinitis 51851420 J30.9 Add Claritin 10 mg daily x 4 weeks Monitor for effect Seasonal a llergic conjunctivitis 899257747 H10.13 Add Zaditor gtts BID x 4 weeks Monitor [id number] Kristi Hernandez [facility] on [address] [place] [address] [phone] 3 12/01/2020 15:53:59 12/06/2020 09:44:26 Generalized anxiety disorder 12967530 F41.1 Duloxetine 30 mg BID Klonopin 0.5 mg QHS Request psych eval [id number] CALEB PERKINS NP [facility] on [address] [place] [address] [phone] 3 12/27/2020 14:35:54 12/30/2020 13:11:57 Hemiplegia and/or hemiparesis following stroke 2301953588 9107 I69.359 mostly in wheelchair encourage increased physical activity Seizure disorder 0825069 02 G40.909 keppra 1000mg bid Schizoaffe ctive disorder, mixed type 144213436 F25.0 mood stable continue to monitor and chart any changes in mood or behaviors psych prn Restless legs 82959526 G 25.81 ropinole 0.5 mg daily mag ox 400 mg daily Neuropathy 676393408 G62 .9 gabapentin 1200 mg tid Insomnia 639824172 G47.0 0 ambien 5mg daily Generalize d anxiety disorder 99963008 F41.1 klonopin 0.5 mg daily cymbalta 30 mg bid Essential hypertension 29747752 I10 clonidine 0.2 mg bid lisinopril 40 mg daily doxazosin 2 mg daily monitor bp Diabetes mellitus 062375 09 E11.9 trulicity 1.5 mg daily metformin 1000mg bid monitor glucose Chronic pain syndrome 37 0581990 G89.4 tramadol 25 mg q12hr prn gabapentin 1200 mg tid cyclobenza lalo 10 mg bid, 20 mg hs Asthma 693734733 J45.90 9 flovent bid [id number] BIMAL NGUYEN [facility] on [address] [place] [address] [phone] 3 02/02/2021 14:57:56 02/07/2021 15:57:17 Impacted cerumen in left ear 2538186824 794874 H61.22 add debrox 5 gtts qhs and flush with warm NS on 6th daymonitor for relief [id number] Kristi Hernandez [facility] on [address] [place] [address] [phone] 3 02/15/2021 10:06:45 02/17/2021 15:34:14 Acute otitis externa 13234352 H60.591 Cipro HC Otic 3 gtts to R ear BID x 7 daysAdvise d patient to avoid inserting any foreign objects into ear including Q-tipsMoni tor to resolution [id number] EM NAIR PA-C [facility] on [address] [place] [address] [phone] 3 02/16/2021 20:59:13 02/21/2021 03:48:12 Peripheral neuropathy due to type 2 diabetes mellitus 7518615560 107 E11.42 No renal impairment or hyperkalem ia on NATALI-Amirah changes neededCons ider reduction in frequency of lab monitoring [id number] Linda Vazquez MD [facility] on [address] [place] [address] [phone] 3 02/20/2021 06:49:32 02/22/2021 11:44:42 Asthma 412085495 J45.30 flovent 44: 2 puffs bidwill monitor Chronic pain syndrome 37 2707113 G89.4 tramadol 25 mg q12h prnduloxet ine 30 mg bid and 60 mg at hsgabapent in 1200 mg tidibuprof en 400 mg q12h prncyclobe nzaprine 10 mg bid and 20 mg at hswill monitor Diabetes mellitus 470952 09 E13.42 Trulicity 1.5 mg weekly SCLantus 35U at hsmetformi n 1000 mg bidwill monitor Essential hypertension 93060117 I10 doxazosin 1 mg dailycloni dine 0.2 mg bidlisinop ril 20 mg dailywill monitor SARS-CoV-2 236678086 U07 .1 diagnosed 11/11/19rec overedwill continue to monitor Seizure disorder 2638597 02 G40.909 levetirace munoz 1000 mg bidwill monitor Mixed anxi ety and depressive disorder 583468170 F41.8 clonazepam 0.5 mg daily at hsduloxeti ne 30 mg bid and 60 mg at hsgabapent in 1200 mg tidclonidi ne 0.2 mg bidwill monitorpsy ch prn Primary insomnia 7176117 F51.01 zolpidem 5 mg at hs prnwill monitor Restless legs 14787592 G 25.81 ropinirole 0.5 mg at hswill monitor [id number] Kristi Ames [facility] on [address] [place] [address] [phone] 3 02/21/2021 13:57:17 02/24/2021 13:55:38 Diabetes mellitus 74071839 E13.42 HbA1c improved but not yet at goalGoal HbA1c <8.0Add Lantus 8 units QAM, cont 35 units QHSAdjust Humalog sliding scale, coverage to start at BS 150 (currently starts at BS 200)Trulic ity 1.5 mg QweeklyMet formin 1000 mg BIDmonitor accuchecks Repeat HbA1c as ordered [id number] Kristi Hernandez [facility] on [address] [place] [address] [phone] 3 02/22/2021 14:12:57 02/24/2021 14:05:11 Morbid obesity 160905891 E66.01 Discussed with patient-wi ll replace 1 meal (she prefers dinner) with protein shake-daniel ent to supply kitchen with powder to prepare as she is unable to have cheese blender in roomMonito r weights [id number] Kristi Hernandez [facility] on [address] [place] [address] [phone] 3 02/28/2021 10:01:05 03/07/2021 16:10:20 Insomnia 506056218 G47.09 Increase ambien 10 mg QHSWill change admin time of Clonazepam to 2 PM to reduce risk of interactio n with AmbienMoni tor for effect [id number] Shaylee Lowry [employer] [facility] on [address] [place] [address] [phone] 3 03/13/2021 11:17:03 03/15/2021 14:31:48 Right sided chest pain 320839926 R07.89 doesn't appear have an infectionp ain only when sitting up and pt is morbidly obese with abd rollsarea of concern slightly edematousw ill have staff monitoradd lidocaine gel apply qd to abd roll prn pain [id number] Kristi Hernandez [facility] on [address] [place] [address] [phone] 3 04/10/2021 15:36:41 04/12/2021 11:23:43 Acute otitis externa 87753425 H60.591 CiproDex otic 4 gtts to L ear BID x 7 daysAdvise d patient to avoid inserting any foreign objects into ear including Q-tipsMoni tor to resolution [id number] BIMAL NGUYEN [facility] on [address] [place] [address] [phone] 3 04/21/2021 12:12:19 04/25/2021 09:47:12 Acute otitis externa 17884344 H60.591 repeat CiproDex otic 4 gtts to L ear BID x 7 daysAdvise d patient to avoid inserting any foreign objects into ear including Q-tipsfind otoscope to reassess Insomnia 464621926 G47.0 9 continue ambien 10 mg QHSClonaze guicho 2 PMMonitor for effect Morbid obesity 957340857 E66.01 monitor weightsmea l replacemen t shake one meal a day Diabetes mellitus 469650 09 E13.42 HbA1c improved but not yet at goalGoal HbA1c <8.0increa se Lantus to 10 units QAM, cont 35 units QHSHumalog sliding scale, coverage to start at BS 150 (currently starts at BS 200)Trulic ity 1.5 mg QweeklyMet formin 1000 mg BIDmonitor accuchecks Repeat HbA1c as ordered Asthma 744465235 J45.30 flovent 44: 2 puffs bidwill monitor Chronic pain syndrome 37 1405791 G89.4 tramadol 25 mg q12h prnduloxet ine 30 mg bid and 60 mg at hsgabapent in 1200 mg tidibuprof en 400 mg q12h prncyclobe nzaprine 10 mg bid and 20 mg at hswill monitor Essential hypertension 21496311 I10 doxazosin 1 mg dailycloni dine 0.2 mg bidlisinop ril 20 mg dailywill monitor SARS-CoV-2 029971643 U07 .1 diagnosed 11/11/19rec overedwill continue to monitor Seizure disorder 7249246 02 G40.909 levetirace munoz 1000 mg bidwill monitor levels Mixed anxi ety and depressive disorder 800397873 F41.8 clonazepam 0.5 mg daily at hsduloxeti ne 30 mg bid and 60 mg at hsgabapent in 1200 mg tidclonidi ne 0.2 mg bidwill monitorpsy ch prn Primary insomnia 4456867 F51.01 zolpidem 5 mg at hs prnwill monitor Restless legs 17270751 G 25.81 ropinirole 0.5 mg at hswill monitor [id number] EM NAIR PA-C [facility] on [address] [place] [address] [phone] 3 04/26/2021 11:34:17 04/28/2021 11:23:08 Peripheral neuropathy due to type 2 diabetes mellitus 2298741955 107 E11.42 Lantus 10 ux SQ q am and 35 ux SQ qhsTrulici ty 1.5 mg SQ q SaturdayMetf ormin 1 g po bidCorrect ional HumalogOn NATALI-I for renal protection Gastroesop hageal reflux disease without esophagitis 731665758 K21.9 Prilosec 20 mg po q am Restless legs 97036485 G 25.81 Requip 0.5 mg po qhs Health Concerns Section Related Observation LastModified by Organization Detai ls LastModified Time None Recorded Concern Status LastModified by Organization Details LastModified Time None Recorded Advance Directives Directive Y: Full code Payers Encounter Date Sequence Insurance Name Policy Number Policy Salguero Covered Member ID Salguero Member ID Guarantor Name 02/28/2021 1 [place] Yesika Farr [id number] Yesika Farr 03/13/2021 1 [place] Yesika Farr [id number] Yesika Farr 04/10/2021 1 [place] Yesika Farr [id number] Yesika Farr 04/21/2021 1 [place] Yesika Farr [id number] Yesika Farr 04/26/2021 1 [place] Yesika Farr [id number] Yesika Farr Notes Date Note Type Note Provider Name and Address Organization Details Recorded Time 02/28/2021 text/html 45 yo female LTC resident seen for acute rounding. Patient reports difficulty sleeping despite receiving Ambien at bedtime. Also receives scheduled Clonazepam in evening currently. Kristi chavez [employer] 02/28/2021 10:06:20 03/13/2021 text/html pt seen today fo r acute rounding. pt is c/o pain on her left abd roll under her left breast. has no pain in left breast. pt says it doesn't bother her at all when she is lying down in bed. just when she is sitting up. otherwise no concerns per nursing. Shaylee Lowry, [employer] [address], [address], [place], [address], [employer] 03/13/2021 11:29:20 04/10/2021 text/html 45 yo female LTC resident seen for acute rounding. Patient c/o pain of L ear. Reports recently cleaning ear with Q-tip. 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 Jose A Lassiter [...] diabetes meds adjusted. 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 Discharging today under MFA waiver program to her own apartment. Home Health Certification: Dx as above; Seen this am by [facility]-registered Em Nair PA-C NPI# [id number]; Last MD visit 02/20/21; senior care for medication management and reconciliation and teaching, [...] per PCP discretion Services Ordered at Discharge: [facility] Diet: allergic to tomato; carb controlled; regular texture; thin liquids Activity: w/c and 2 wheeled walker as tolerated Pt says, I'm movin' on up (sung like the Florian's theme song.) No complaints. Very excited to be going to her own apartment. Nurse reports pt has been demonstrating competent management of her diabetes/insulin. EM NAIR PA-C [address], [address], [place], [address], [email or web address] [facility] 04/26/2021 22:00:55 OBGyn Episode No OBEpisode recorded.
[2024-10-23 18:14] LABS: Creatinine Urine 138.11 mg/dL; Microalbum/Creatinine Ratio Ur 15.2 ug/mg cr (<30)
[2024-10-25 07:09] LABS: Trichomonas vaginalis RNA NOT DETECTED (NOT DETECTED)
== END 2024-10-23 15:31 | disposition home or self-care (01) ==
LOC: HO.LNP 15:30
PROVIDERS: Visit Provider Nurse Practitioner Primary Care
DX: N89.8 Other specified noninflammatory disorders of vagina (principal); E11.69 Type 2 diabetes mellitus with other specified complication; E78.5 Hyperlipidemia, unspecified
CPT/HCPCS: 82043; 82570; 87661

== ENCOUNTER 2024-11-16 17:13 | Emergency (ER) | payer MEDICAID, SELFPAY ==
[2024-11-16 17:26] VITALS: BP 133/80; BP 145/88; PULSE 100; PULSE 106; RESP 20; TEMP 36.2; O2SAT 100; O2SAT 90; BMI 37.8
[2024-11-16 17:30] VITALS: RESP 20; O2SAT 100
--- NOTE | 2024-11-16 17:33 | PC.NURSE ---
Pt coming with flu like symptoms x3 days. Pt reporting bilat ear pain, sore throat, cough, increased asthma symptoms. Pt reporting that she has been using her inhaler and that it has been providing relief. Pt stated that she has been having her baseline chest tightness with coughing and ambulating that she gets with her asthma. Reporting low grade temp last night, APAP taken and has been afebrile all day today. Pt is still able to tolerate PO intake at this time.. Awaiting Ed provider at this time, call wall within reach. Seizure pads in place d/t pt having seizure history reporting after 1 episode of vomiting this morning she had a 1 minute long silent seizure. Pt states she has been having 3-4 a week, has not missed a dose of her medications, PCP currently managing, awaiting neuro apt at this time.
--- NOTE | 2024-11-16 18:08 | ED_ITS ---
HPI - URI/Sore Throat General Chief Complaint: Upper Respiratory Symptoms Stated Complaint: flu like sxs, chest tightness Time Seen by Provider: 11/16/24 18:01 Source: patient and EMS Mode of arrival: EMS Limitations: no limitations History of Present Illness ED Provider: Dr. Clarisse Henry HPI Narrative: Patient comes to the emergency room complaining of sore throat, cough, runny nose, bilateral ear pain. Patient reports that she has at baseline intermittent asthma exacerbations. At this time, patient denies chest pain or shortness of breath. Denies fever or chills Related Data Home Medications ?Medication ?Instructions ?Recorded ?Confirmed blood sugar diagnostic (FreeStyle #10 ea 11/01/21 04/17/22 Lite Strips) blood-glucose meter (FreeStyle #1 ea 11/01/21 04/17/22 [place] Lite kit) clonidine HCl 0.2 mg tablet 0.2 mg PO BID 11/01/21 10/22/23 duloxetine 30 mg capsule,delayed 30 mg PO DAILY 11/01/21 10/22/23 release folic acid 1 mg tablet 1 mg PO DAILY 11/01/21 10/22/23 lisinopril 40 mg tablet 40 mg PO DAILY 11/01/21 10/22/23 magnesium oxide 400 mg (241.3 mg 400 mg PO BID 11/01/21 10/22/23 magnesium) tablet metformin 1,000 mg tablet 1,000 mg PO BIDWM 11/01/21 10/22/23 omeprazole 20 mg capsule,delayed 20 mg PO DAILY@0630 11/01/21 10/22/23 release pen needle, diabetic 31 gauge x #50 ea 11/01/21 04/17/2210/04 (Sure Comfort Pen Needle) thiamine HCl (vitamin B1) 100 mg 100 mg PO DAILY 11/01/21 10/22/23 tablet cyclobenzaprine 10 mg tablet 1 tab PO BID PRN muscle spasm 04/02/22 10/22/23 insulin lispro 100 unit/mL See Protocol subcut TIDAC 04/02/22 10/22/23 subcutaneous pen albuterol sulfate 90 mcg/actuation 2 puff inhalation Q6H PRN wheezing 07/31/23 10/22/23 aerosol inhaler (Ventolin HFA) hydroxyzine HCl 25 mg tablet 25 mg PO BID PRN Anxiety 07/31/23 10/22/23 mirtazapine 7.5 mg tablet 7.5 mg PO BEDTIME PRN Insomnia 07/31/23 10/22/23 pregabalin 50 mg capsule 50 mg PO TID 07/31/23 10/22/23 doxepin 25 mg capsule 25 mg PO BEDTIME 10/22/23 10/22/23 dulaglutide 3 mg/0.5 mL 3 mg subcut TU 10/22/23 10/22/23 subcutaneous pen injector (Trulicity) duloxetine 60 mg capsule,delayed 60 mg PO DAILY 10/22/23 10/22/23 release escitalopram oxalate 5 mg/5 mL 20 mg PO QAM 10/22/23 10/22/23 oral solution insulin glargine 100 unit/mL (3 10 unit subcut BID 10/22/23 10/22/23 mL) subcutaneous pen melatonin 10 mg capsule 10 mg PO BEDTIME insomnia 10/22/23 10/22/23 Previous Rx's ?Medication ?Instructions ?Recorded aspirin 81 mg chewable tablet 81 mg PO DAILY #90 tabs 08/01/23 atorvastatin 40 mg tablet 40 mg PO BEDTIME #90 tabs 08/01/23 levetiracetam 1,000 mg tablet 1,500 mg (1.5 x 1,000 mg) PO 10/24/23 BID@0900,1700 #120 tabs morphine 15 mg immediate release 15 mg PO Q6H PRN pain #10 tabs 12/04/23 tablet ondansetron HCl 4 mg tablet 4 mg PO Q8H PRN nausea and 04/13/24 vomiting #14 tabs amoxicillin 875 mg-potassium 1 tab PO Q12H 5 days #10 tabs 04/14/24 clavulanate 125 mg tablet azithromycin 500 mg tablet See Rx Instructions PO .COMPLEX #6 04/14/24 tabs codeine 10 mg-guaifenesin 100 mg/5 10 ml PO Q6H PRN cough #237 mL 08/18/24 mL oral liquid prednisone 20 mg tablet 40 mg (2 x 20 mg) PO DAILY #10 tabs 08/18/24 carbamide peroxide 6.5 % ear drops 5 drp otic (ear) left Q12H 4 days 11/16/24 (Ear Drops (carbamide peroxide)) #15 mL ibuprofen 600 mg tablet 600 mg PO Q8H PRN fever or pain 11/16/24 #20 tabs Allergies Allergy/AdvReac Type Severity Reaction Status Date / Time tomato [TOMATO] Allergy Unknown RASH Verified 11/16/24 17:29 Review of Systems Review of Systems: Constitutional : No Weight loss, No Fever, No Chills, No Night Sweats, No Fatigue, No Malaise ENT/Mouth : No Hearing loss, complaining of bilateral ear discomfort, no drainage, nasal congestion and sore throat Eyes: No Eye Pain, No Swelling, No Redness, No Foreign Body, No Discharge, No Vision Changes Cardiovascular : No Chest Pain, No SOB, No Dyspnea on Exertion, No Orthopnea, No Edema, No Palpitations Respiratory : Complaining of cough, intermittent wheezing, no shortness of breath at this time Gastrointestinal : No Nausea, No Vomiting, No Diarrhea, No Constipation, No abdominal Pain, No Hematochezia, No Melena Genitourinary : no irregular bleeding, No Dysuria, No Urinary Frequency, No Hematuria, No Urinary Incontinence, No Urgency, No Flank Pain, No Urinary Flow Changes, No Hesitancy Musculoskeletal : No joint pain, No Myalgias, No Joint Swelling Skin : No Skin Lesions, No rash Neuro : No Weakness, No Numbness, No Paresthesias, No Loss of Consciousness, No Dizziness, No Headache Psych : No Anxiety/Panic, No Depression, No SI/HI/AH/VH, No Social Issues, Heme/Lymph: No Bruising, No Bleeding,No Lymphadenopathy Endocrine : No Polyuria, No Polydipsia, No Temperature Intolerance [facility] Past Medical History Medical History Transaminitis Cholecystitis, acute with cholelithiasis UTI (urinary tract infection) Asthma Restless leg syndrome Stroke GERD (gastroesophageal reflux disease) Anxiety Depression Insomnia Neuropathy Seizure Hypertension Insulin dependent type 2 diabetes mellitus Morbid obesity Hx of completed stroke Surgical History History of laparoscopic cholecystectomy (04/05/22) History of Family History Family History Mother Diabetes Father Diabetes Alcoholism Social History Social History Household Members: None Housing: Apartment Do you presently have visiting nurse or other home services: Yes (production control manager, vna) Alcohol intake: never Patient Tobacco Use Status: Former Tobacco user Tobacco use type: Cigarette Cigarette Packs Per Day: 2 Cigarettes Per Day: 40.0 Years Smoked: 14 Substance Use Type: Marijuana Advance Directives: Yes Advance Directives on File: Yes Advance Directives Date on File: 04/02/22 service: No Current occupational status: unemployed Physical Exam Vital Signs: Vital Signs: Last Vital Signs Temp 97.2 F 11/16/24 17:26 Pulse 106 H 11/16/24 17:26 Resp 20 11/16/24 17:30 BP 145/88 H 11/16/24 17:26 Pulse Ox 100 11/16/24 17:30 O2 Del Method Nasal Cannula 11/16/24 17:30 Oxygen Flow Rate 2 11/16/24 17:30 BMI result Body Mass Index 37.8 Const: Other: Appearance: Alert. Oriented X3. No acute distress. Eyes: Pupils equal, round and reactive to light. ENT: Pharynx normal. Right tympanic membrane within normal limits. Left tympanic membrane Does not seem to be erythematous or ruptured, there is limit visualizations due to thick dry cerumen. both ear canals within normal limits, no discharge Neck: Normal inspection. Neck supple. No lymph nodes noted. No crepitus CVS: Normal heart rate and rhythm. Pulses normal. Normal S1 and S2 Respiratory: No respiratory distress. Breath sounds normal. No Wheezing. No rales Abdomen: Soft and nontender. No rigidity. No distention. Skin: Skin warm and dry. Normal skin color. Normal skin turgor. Extremities: No lower extremity edema. No Lacerations. No Rash Neuro: Oriented X 3. No motor deficit. No sensory deficit. Moving all extremities. No slurred speech. CN 2 through 12 grossly intact Psych: calm, cooperative, normal affect Course Course Course Narrative: All of patient's labs pending. At this time, patient denies chest pain, shortness of breath, no wheezing. Medical Decision Making Medical Decision Making [facility] Narrative: My interpretation of labs: Negative for strep an URI. Lab Data Labs: Lab Results 11/16/24 Range/Units 18:19 Influenza Type A (PCR) NEGATIVE (Negative) Influenza Type B (PCR) NEGATIVE (Negative) RSV RNA Qual (PCR) NEGATIVE (Negative) SARS-CoV-2 RNA (RT-PCR) NEGATIVE (Negative) S. pyogenes GrpA MICHELLE Negative (Negative) Discharge Plan Discharge Clinical Impression: Viral URI, Impacted cerumen, left ear Patient Disposition: Home, Self-Care Instructions: Carbamide Peroxide (Into the ear), Viral Syndrome (ED) Additional Instructions: Please follow-up with your primary care physician tomorrow. after using the ear drops, please follow-up with your primary care physician for ear wax removal. If you have any worsening or new symptoms, please return to the emergency room or call 911 Prescriptions: New Ear Drops (carbamide peroxide) 6.5 % drops 5 drp otic (ear) left Q12H 4 Days Qty: 15 0RF ibuprofen 600 mg tablet 600 mg PO Q8H PRN (Reason: fever or pain) Qty: 20 0RF No Action cyclobenzaprine 10 mg tablet 1 tab PO BID PRN (Reason: muscle spasm) insulin lispro 100 unit/mL insulin pen See Protocol subcut TIDAC Protocol: Insulin Correction Scale Less than or equal to 110 ---- Give (units): 0 111 to 150 Give (units): 0 151 to 200 Give (units): 2 201 to 250 Give (units): 4 251 to 300 Give (units): 6 301 to 350 Give (units): 8 Greater than 350 Give (units): 10 Call MD if Blood Glucose > : 350 hydroxyzine HCl 25 mg tablet 25 mg PO BID PRN (Reason: Anxiety) albuterol sulfate [Ventolin HFA] 90 mcg/actuation HFA aerosol inhaler 2 puff INHALATION Q6H PRN (Reason: wheezing) mirtazapine 7.5 mg tablet 7.5 mg PO BEDTIME PRN (Reason: Insomnia) pregabalin 50 mg capsule 50 mg PO TID atorvastatin 40 mg Tablet 40 mg PO BEDTIME Qty: 90 0RF aspirin 81 mg Tablet,Chewable 81 mg PO DAILY Qty: 90 0RF doxepin 25 mg capsule 25 mg PO BEDTIME escitalopram oxalate 5 mg/5 mL solution 20 mg PO QAM duloxetine 60 mg capsule,delayed release(DR/EC) 60 mg PO DAILY Trulicity 3 mg/0.5 mL pen injector 3 mg subcut TU insulin glargine 100 unit/mL (3 mL) insulin pen 10 unit SUBCUT BID melatonin 10 mg capsule 10 mg PO BEDTIME levetiracetam 1,000 mg tablet 1,500 mg PO BID@0900,1700 Qty: 120 0RF prednisone 20 mg tablet 40 mg PO DAILY Qty: 10 0RF codeine-guaifenesin 10-100 mg/5 mL liquid 10 ml PO Q6H PRN (Reason: cough) Qty: 237 0RF morphine 15 mg tablet 15 mg PO Q6H PRN (Reason: pain) Qty: 10 0RF Rx Instructions: partial fill okay; Partial Fill upon patient request. ondansetron HCl 4 mg tablet 4 mg PO Q8H PRN (Reason: nausea and vomiting) Qty: 14 0RF amoxicillin-pot clavulanate 875-125 mg tablet 1 tab PO Q12H 5 Days Qty: 10 0RF azithromycin 500 mg tablet See Rx Instructions .ROUTE .COMPLEX Qty: 6 0RF Rx Instructions: For 250 mg dose pack: take 500 mg today (day 1), then 250 mg for 4 days (days 2-5) omeprazole 20 mg capsule,delayed release(DR/EC) 20 mg PO DAILY@0630 (DME) blood-glucose meter [FreeStyle [place] Lite] Kit See Rx Instructions Not Applicable DAILY Qty: 1 Rx Instructions: As directed thiamine HCl (vitamin B1) 100 mg tablet 100 mg PO DAILY (DME) FreeStyle Lite Strips Strip See Rx Instructions Not Applicable TID Qty: 10 Rx Instructions: As directed duloxetine 30 mg capsule,delayed release(DR/EC) 30 mg PO DAILY magnesium oxide 400 mg (241.3 mg magnesium) tablet 400 mg PO BID folic acid 1 mg tablet 1 mg PO DAILY clonidine HCl 0.2 mg tablet 0.2 mg PO BID lisinopril 40 mg tablet 40 mg PO DAILY metformin 1,000 mg tablet 1,000 mg PO BIDWM (DME) pen needle, diabetic [Sure Comfort Pen Needle] 31 gauge x 3/16 needle See Rx Instructions .ROUTE BID Qty: 50 Rx Instructions: As directed Print Language: Iranian
[2024-11-16 18:32] LABS: IDNOW Serial# 55D5AD1C; Strep A Nucleic Acid Negative (Negative)
[2024-11-16 19:01] LABS: Influenza A PCR NEGATIVE (Negative); Influenza B PCR NEGATIVE (Negative); Resp Syncy Virus RNA Qual PCR NEGATIVE (Negative); SARS COV2 PCR INHOUSE NEGATIVE (Negative)
--- OUTSIDE RECORDS SUMMARY | 2024-11-16 19:15 | XMS_ITS | Encounter Summary ---
Author Organization [employer] [facility] Address [address] [place] [address] [address] [place] [address] Care Team Providers Care Senior Commercial Loan Officer Name Role Phone Cathy Gerber Primary Care Provider [phone] Reason for Visit * Reason Comments Med Refill Encounter Details Date Type Department Care Team (Late Contact Info) Description 08/07/2023 Refill [facility] [address] [place] [phone] Cathy Gerber ANP [address] [place] [address] Social History Tobacco Use Types Packs/Day Years [...] Department Care Team (Late Contact Info) Description 11/20/2024 3:30 PM EDT Medication Management [facility] [address] [place] [phone] Kimberly Betancourt, PharmD [address] [place] [address] 12/31/2024 2:30 PM EDT Office Visit [facility] [address] [place] [phone] Cathy Gerber ANP [address] [place] [address] documented as of this encounter Visit Diagnoses Not on filedocumented in this encounter Care Teams Senior Commercial Loan Officer Relationship Specialty Start Date End Date Cathy Gerber ANP [address] [facility] [place] [address] PCP - General Family Medicine 06/28/22 documented as of this encounter
--- OUTSIDE RECORDS SUMMARY | 2024-11-16 19:15 | XMS_ITS | Encounter Summary ---
Author Organization [facility] [facility] Address [address] [place] [address] 7t [place] [address] Care Team Providers Care Skilled Nursing Facilities Professional Name Role Phone aCthy Gerber Primary Care Provider Encounter Details Date Type Department Care Team (Late st Contact Info) Description 07/02/2022 Orders Only [facility] [address] [place] [phone] Jennifer Steel, RN [address] [place] [address] Social History Tobacco Use Types Packs/Day Years [...] Care Team (Late st Contact Info) Description 11/20/2024 3:30 PM EDT Medication Management [facility] [address] [place] [phone] Kimberly Betancourt, PharmD [address] [place] [address] 12/31/2024 2:30 PM EDT Office Visit [facility] [address] [place] [address] Cathy Gerber ANP [address] [place] [address] documented as of this encounter Visit Diagnoses Not on filedocumented in this encounter Care Teams Skilled Nursing Facilities Professional Relationship Specialty Start Date End Date Cathy Gerber ANP [address] [place] [address] PCP - General Family Medicine 06/28/22 documented as of this encounter
--- OUTSIDE RECORDS SUMMARY | 2024-11-16 19:15 | XMS_ITS | Encounter Summary ---
Author Organization [employer] Address [address] [place] [address] 7t [place] [address] Care Team Providers Care Property Clerk Name Role Phone Cathy Gerber Primary Care Provider [phone] Reason for Visit * Reason Onset Date Comments Med Refill 08/07/2023 Encounter Details Date Type Department Care Team ([facility] st Contact Info) Description 08/07/2023 Telephone [facility] [address] [place], [place] [phone] Cathy Gerber ANP [address] [place] [address] Med Refill Social History Tobacco Use Types [...] 2:46 PM EST Medication was sent to [facility] #[id number] on 06/28/23 with 5 refills. * Telephone Encounter - Darrick Ashley - 08/07/2023 2:44 PM EST TC from pt requesting medication refill. Medications needing refill : insulin glargine (Lantus SoloStar) 100 UNIT/ML pen To be sent to: [facility]/pharmacy #[id number] documented in this encounter Plan of Treatment Upcoming Encounters Date Type Department Care Team (Late st Contact Info) Description 11/20/2024 3:30 PM EDT Medication Management [facility] [address] [place] [phone] Kimberly Betancourt, PharmD [address] [place] [address] 12/31/2024 2:30 PM EDT Office Visit [facility] [address] [place] [address] Cathy Gerber ANP [address] [place] [address] documented as of this encounter Visit Diagnoses Not on filedocumented in this encounter Care Teams Property Clerk Relationship Specialty Start Date End Date Cathy Gerber ANP [address] [place] [address] PCP - General Family Medicine 06/28/22 documented as of this encounter
--- OUTSIDE RECORDS SUMMARY | 2024-11-16 19:15 | XMS_ITS | Encounter Summary ---
Author Organization [employer] [facility] Address [address] [place] [address] 7t [place] [address] Care Team Providers Care Ice Cream Machine Operator Name Role Phone Cathy Gerber Primary Care Provider Reason for Visit * Reason Comments Med Change Request Encounter Details Date Type Department Care Team ([facility] Contact Info) Description 08/20/2023 Refill [facility] [address] [place] [address] Cathy Gerber ANP [address] [place], [place] [phone] Seizure disorder (CMS/[facility]) Social History Tobacco Use Types Packs/Day Years [...] Upcoming Encounters Date Type Department Care Team ([facility] Contact Info) Description 11/20/2024 3:30 PM EDT Medication Management [facility] [address] [place] [address] Kimberly Betancourt, PharmD [address] [place] [address] 12/31/2024 2:30 PM EDT Office Visit [facility] [address] [place] [address] Cathy Gerber ANP [address] [place] [address] documented as of this encounter Visit Diagnoses Diagnosis Seizure disorder (CMS/HCC) Unspecified epilepsy without mention of intractable epilepsy documented in this encounter Care Teams Ice Cream Machine Operator Relationship Specialty Start Date End Date Cathy Gerber ANP [address] [place] [address] PCP - General Family Medicine 06/28/22 documented as of this encounter
--- OUTSIDE RECORDS SUMMARY | 2024-11-16 19:15 | XMS_ITS | Encounter Summary ---
Author Organization [facility] Address [address] [place] [address] 7t [place] [address] Care Team Providers Care Assistant Nurse Manager Name Role Phone Cathy Gerber Primary Care Provider [phone] Encounter Details Date Type Department Care Team (Late st Contact Info) Description 11/06/2022 Orders Only [facility] [address] [place] [address] [phone] Cathy Gerber ANP [address] [place] [address] Social History Tobacco Use Types Packs/Day Years [...] Description 11/20/2024 3:30 PM EDT Medication Management [facility] [address] [place] [address] Kimberly Betancourt, PharmD [address] [place] [address] 12/31/2024 2:30 PM EDT Office Visit [facility] [address] [place] [address] Cathy Gerber ANP [address] [place] [address] documented as of this encounter Visit Diagnoses Not on filedocumented in this encounter Care Teams Assistant Nurse Manager Relationship Specialty Start Date End Date Cathy Gerber ANP [address] [place] [address] PCP - General Family Medicine 06/28/22 documented as of this encounter
--- OUTSIDE RECORDS SUMMARY | 2024-11-16 19:15 | XMS_ITS | Encounter Summary ---
Author Organization [employer] Address [address] [place] [address] 7t [place] [address] Care Team Providers Care Physical Science Professor Name Role Phone Cathy Gerber Primary Care Provider [phone] Reason for Visit * Reason Onset Date Comments Referral 08/09/2023 Encounter Details Date Type Department Care Team ([facility] st Contact Info) Description 08/09/2023 Telephone [facility] [address] [place] [address] Cathy Gerber ANP [address] [place] [address] Referral Social History Tobacco Use Types Packs/Day [...] EST Sent referral and messaged pt via HistoryFile to notify * Telephone Encounter - Ana Larson - 08/29/2023 3:06 PM EST TC from pt requesting status on message below. * Telephone Encounter - Yasmeen Uribe - 08/09/2023 1:34 PM EST TC from pt requesting new referral DATE: N/A TIME: N/A Location: [address] [place] [address] Facility: [facility] Type of Specialist: PT DX: right side hemiparesis Please contact pt at [phone] documented in this encounter Plan of Treatment Upcoming Encounters Date Type Department Care Team ([facility] st Contact Info) Description 11/20/2024 3:30 PM EDT Medication Management [address] [address] Kimberly Betancourt, PharmD [address] [place] [address] 12/31/2024 2:30 PM EDT Office Visit [facility] [address] [place] [address] Cathy Gerber ANP [address] [place] [address] documented as of this encounter Visit Diagnoses Not on filedocumented in this encounter Care Teams Physical Science Professor Relationship Specialty Start Date End Date Cathy Gerber ANP [address] [place] [address] PCP - General Family Medicine 06/28/22 documented as of this encounter
--- OUTSIDE RECORDS SUMMARY | 2024-11-16 19:15 | XMS_ITS | Encounter Summary ---
Author Organization [employer] [facility] Address [address] [place] [address] 7t [place] [address] Care Team Providers Care Creative Engagement Director Name Role Phone Cathy Gerber Primary Care Provider Encounter Details Date Type Department Care Team (Late st Contact Info) Description 09/03/2022 Abstract [facility] [address] [place] [phone] Cathy Gerber ANP [address] [place] [address] Social History Tobacco Use Types Packs/Day Years [...] Description 11/20/2024 3:30 PM EDT Medication Management [facility] [address] [place] [address] Kimberly Betancourt, PharmD [address] [place] [address] 12/31/2024 2:30 PM EDT Office Visit [facility] [address] [place] [phone] Cathy Gerber ANP [address] [place] [address] documented as of this encounter Visit Diagnoses Not on filedocumented in this encounter Care Teams Creative Engagement Director Relationship Specialty Start Date End Date Cathy Gerber ANP [address] [place] [address] PCP - General Family Medicine 06/28/22 documented as of this encounter
--- OUTSIDE RECORDS SUMMARY | 2024-11-16 19:15 | XMS_ITS | Encounter Summary ---
Author Organization [employer] Address [address] [facility] 7t [place] [address] Care Team Providers Care Hospital Nursing Assistant Name Role Phone Cathy Gerber Primary Care Provider Reason for Visit * Reason Comments Med Refill Encounter Details Date Type Department Care Team ([facility] Contact Info) Description 03/09/2024 Refill [facility] [address] [place], [place] [phone] Lilian Meyers, ERIKA [address] [place] [address] Social History Tobacco Use Types Packs/Day Years [...] Description 11/20/2024 3:30 PM EDT Medication Management [facility] [address] [place] [address] Kimberly Betancourt, PharmD [address] [place] [address] 12/31/2024 2:30 PM EDT Office Visit [facility] [address] [place] [address] Cathy Gerber ANP [address] [place] [phone] documented as of this encounter Visit Diagnoses Not on filedocumented in this encounter Additional Health Concerns Assessment Noted Time PHQ-9 Depression Total Score: 0 09/12/19 24 10:17 AM EST documented as of this encounter Care Teams Hospital Nursing Assistant Relationship Specialty Start Date End Date Cathy Gerber ANP [address] [place] [phone] PCP - General Family Medicine 06/28/22 documented as of this encounter
--- OUTSIDE RECORDS SUMMARY | 2024-11-16 19:15 | XMS_ITS | Clinical Summary ---
Author Organization [employer] Address [address] [facility] [address] [place] [address] Care Team Providers Care Business Analyst Name Role Phone Cathy Gerber Primary Care Provider [phone] Allergies Active Allergy Reactions Criticality Noted Date Comments Gramineae Pollens 07/27/2022 Tomato Rash Low 07/31/2023 Medications Blood Glucose Monitoring Suppl (Stingray GeophysicalStyle Lite) w/Device kit 1 kit 3 times daily. 1 kit 023 Active albuterol 108 (90 Base) MCG/ACT inhalerIndication s:COPD exacerbation ([facility]) Inhale 2 puffs every 6 (six) hours if needed for wheezing. 18 g 023 Active hydrOXYzine HCl (Atarax) 25 MG tablet Take 25 mg by mouth if needed in the morning and at bedtime. 023 Active dulaglutide (Trulicity) 3 MG/0.5ML solution pen-injectorIndic ations:Type 2 diabetes mellitus with hyperlipidemia ([facility]) ([facility]) Inject 3 mg under the skin 1 (one) time per week. 4 each 11 024 Active DULoxetine (Cymbalta) [address] [...] padsIndications:T ype 2 diabetes mellitus with hyperlipidemia (CMS/HCC) ([facility]) USE DIRECTED 100 each 11 024 Active glucose blood (FREESTYLE LITE) test stripIndications: Type 2 diabetes mellitus with hyperlipidemia ([facility]/HCC) ([facility]) USE TO TEST BLOOD SUGAR THREE TIMES A DAY 100 each 11 024 Active DULoxetine (Cymbalta) [address] capsuleIndication s:Chronic pain syndrome TAKE 1 CAPSULE BY MOUTH DAILY WITH 30 MG CAPSULE 90 capsule 024 Active insulin lispro (HumaLOG) 100 UNIT/ML [...] tabletIndications :Alcohol dependence with unspecified alcohol-induced disorder ([facility]) TAKE 1 TABLET BY MOUTH EVERY DAY [...] A MEAL 90 capsule 1 024 Active metFORMIN (Glucophage) 1000 MG tabletIndications :Type 2 diabetes mellitus with other specified complication, with long-term current use of insulin ([facility]) TAKE 1 TABLET BY MOUTH TWICE DAILY IN THE MORNING AND IN THE EVENING WITH MEALS 180 tablet 1 025 Active cloNIDine (Catapres) 0.2 MG tabletIndications :Hypertension associated with diabetes ([facility]) TAKE 1 TABLET BY MOUTH TWICE A DAY 180 tablet 1 025 Active levETIRAcetam (Keppra) 1000 MG tabletIndications :Seizure disorder ([facility]/HCC) TAKE 1 + 1/2 TABLETS BY MOUTH TWICE A DAY 270 tablet 025 Active olmesartan-hydroC HLOROthiazide (Benicar HCT) 40-12.5 MG tabletIndications :Primary hypertension Take 1 tablet by mouth Once per day. 90 tablet 1 025 2025 Active insulin degludec (Tresiba FlexTouch) 100 UNIT/ML injectionIndicati ons:Type 2 diabetes mellitus with hyperlipidemia (CMS/HCC) ([facility]) Inject 36 Units under the skin Once daily. 15 mL 5 025 2025 Active semaglutide (Ozempic) 2 MG/1.5ML solution pen-injectorIndic ations:Type 2 diabetes mellitus with hyperlipidemia (CMS/HCC) ([facility]) Inject 1 mg under the skin 1 (one) time per week. 2 each 025 Active Continuous Glucose Cable Tv Installer (FreeStyle Pedro 3 [place]) deviceIndications :Type 2 diabetes mellitus with hyperlipidemia (CMS/HCC) ([facility]) 1 each Once per day. Use as directed for CGM 1 each 025 Active Continuous Glucose Sensor (FreeStyle Pedro 3 Plus Sensor) miscIndications:T ype 2 diabetes mellitus with hyperlipidemia (CMS/HCC) ([facility]) 1 each every 15 days. Apply 1 every 15 days as directed for CGM 2 each 025 Active glucose blood (FreeStyle Precision Edward Test) test stripIndications: Type 2 diabetes mellitus with hyperlipidemia (CMS/HCC) ([facility]) Use to test blood sugar 4 times daily in case of CGM failure or extremes of BG 100 each 025 2025 Active magnesium oxide (Mag-Ox) 400 (240 Mg) MG tablet TAKE 1 TABLET BY MOUTH TWICE A DAY 180 tablet 025 Active atorvastatin (Lipitor) 40 MG tabletIndications :Type 2 diabetes mellitus with hyperlipidemia (CMS/HCC) ([facility]) TAKE 1 TABLET BY MOUTH AT BEDTIME 90 tablet 025 Active Aspirin Low Dose 81 MG chewable tabletIndications :Type 2 diabetes mellitus with hyperlipidemia (CMS/HCC) ([facility]) CHEW 1 TABLET BY MOUTH EVERY DAY 90 tablet 025 Active pregabalin (Lyrica) 50 MG capsuleIndication s:Chronic pain syndrome,Restless legs,Neuropathic pain TAKE 1 CAPSULE BY MOUTH THREE TIMES A DAY 90 capsule 1 025 Active Continuous Blood Gluc Cable Tv Installer (FreeStyle Pedro 2 [place]) deviceIndications :Type 2 diabetes mellitus with hyperlipidemia (CMS/HCC) ([facility]) Scan sensor every 8 hours 1 each 024 2024 Discontinued(T herapy completed) Continuous Blood Gluc Sensor (FreeStyle Pedro 2 Sensor) miscIndications:T ype 2 diabetes mellitus with hyperlipidemia (CMS/HCC) (CMS/HCC) Apply 1 sensor every 14 days 2 each 11 024 2024 Discontinued(T herapy completed) pregabalin (Lyrica) 50 MG capsuleIndication s:Chronic pain syndrome,Restless legs,Neuropathic pain TAKE 1 CAPSULE BY MOUTH THREE TIMES A DAY 90 capsule 1 024 2024 Discontinued Lantus SoloStar 100 UNIT/ML pen INJECT 10 UNITS EVERY MORNING AND 35 UNITS EVERY EVENING 15 mL 5 024 2024 Discontinued(I neffective) magnesium oxide (Mag-Ox) 400 (240 Mg) MG tablet TAKE 1 TABLET BY MOUTH TWICE A DAY 180 tablet 025 2024 Discontinued atorvastatin (Lipitor) 40 MG tabletIndications :Type 2 diabetes mellitus with hyperlipidemia (CMS/HCC) ([facility]/HCC) TAKE 1 TABLET BY MOUTH AT BEDTIME 90 tablet 025 2024 Discontinued Aspirin Low Dose 81 MG chewable tabletIndications :Type 2 diabetes mellitus with hyperlipidemia (CMS/HCC) (CMS/HCC) CHEW 1 TABLET BY MOUTH EVERY DAY 90 tablet 025 2024 Discontinued lisinopril 40 MG tabletIndications :Primary hypertension TAKE 1 TABLET BY MOUTH EVERY DAY IN THE MORNING 90 tablet 1 025 2024 Discontinued(I neffective) Active Problems Problem Noted Date Diagnosed Date [...] nodule 05/08/2023 Overview (05/08/2023): -CT abd/pelvis done [facility] ER 01/16/2023 for RLQ abd pain [...] Encounters Date Type Department Care Team Description 11/16/2024 Orders Only GENERIC EXTERNAL DATA DEPARTMENT Provider, Generic External Data 11/06/2024 1:00 PM EDT Clinical Support [facility] [address] [place] [address] Venus Garg, KISHOR Type 2 diabetes mellitus with hyperlipidemia (CMS/HCC) ([facility]); Primary hypertension 11/06/2024 Refill [facility] [address], [place] [phone] Cathy Gerber ANP Chronic pain syndrome; Restless legs; Neuropathic pain 11/06/2024 Travel 11/03/2024 Telephone [facility] [address], [place] [phone] Cathy Gerber ANP Prior Authorization 10/30/2024 Refill [facility] [address] [place] [address] Cathy Gerber ANP Type 2 diabetes mellitus with hyperlipidemia (CMS/HCC) 10/27/2024 Telephone [facility] [address] [place] [phone] Cathy Gerber ANP Prior Authorization (CGM - Freestyle Pedro 3) 10/26/[address] [address] Cathy Gerber ANP 10/26/[address] [address] Cathy Gerber ANP Appointment Request 10/24/[address] [address] Sherrill Hanks, RN Appointment Request 10/24/[address] [address] Cathy Gerber ANP 10/23/2024 2:30 PM EDT Office Visit [address] [address] Cathy Gerber ANP Healthcare maintenance (Primary Dx); Type 2 diabetes mellitus with hyperlipidemia (CMS/HCC) ([facility]); Primary hypertension; Screening for malignant neoplasm of colon; Routine screening for STI (sexually transmitted infection) 10/23/2024 Orders Only [address] [address] Cathy Gerber ANP 10/23/[address] [address] Cathy Gerber ANP Appointment Request 10/23/2024 Travel 10/16/[address] [address] Cathy Gerber ANP Seizure disorder (CMS/HCC) 10/13/2024 Patient Outreach [address] [address] Cathy Gerber ANP Pre-visit Planning (Pre-visit planning - LVM ) 10/12/2024 Orders Only [address] [address] Faisal Mendiola CNM Vaginal discharge (Primary Dx) 10/09/[address] [address] Cathy Gerber ANP Lab Orders 10/09/[address] [address] Concepcion Ocampo RN URI 10/05/[address] [address] Faisal Mendiola CNM Results 10/02/2024 Population Health Risk Score [facility] () Department [address] [place] [phone] Provider, Population Health Generic 09/28/2024 Telephone [facility] [address] [place] [phone] Cathy Gerber ANP Results 09/24/2024 10:15 AM EST Office Visit [address] [address] Faisal Mendiola CNM Vaginal discharge (Primary Dx); Routine cervical smear; Breast cancer screening by mammogram 09/24/2024 Orders Only [address] [address] Faisal Mendiola CNM 09/24/2024 Patient Outreach [address] [address] Britton Nair Recovery Supports 09/24/2024 Travel 09/24/[address] [address] Cathy Gerber ANP Hypertension associated with diabetes (CMS/HCC) (CMS/HCC) 09/23/2024 Telephone [facility] [address] [place] [address] Cathy Gerber ANP Appointment 09/16/[address] [address] Cathy Gerber ANP Durable Medical Equipment 09/16/2024 Telephone [facility] [address] [place] [address] Cathy Gerber ANP Referral 09/15/2024 Telephone [facility] [address] [place] [address] Cathy Gerber ANP Durable Medical Equipment 09/15/2024 Telephone [facility] [address] [place] [address] Cathy Gerber ANP Referral 08/31/2024 Refill [facility] [address] [place] [address] Cathy Gerber ANP Type 2 diabetes mellitus with other specified complication, with long-term current use of insulin ([facility]); Primary hypertension from Last 3 Months Immunizations Name Administration [...] Answer Date Recorded Patient Health Questionnaire-9 Score 20 10/23/2024 Patient Health Questionnaire-9 Score 20 10/23/2024 Last PHQ-9: Questionnaire Data Not on file 0 10/23/2024 Housing Stability Answer Date Recorded What is [...] Answer Date Recorded Patient Health Questionnaire-2 Score 4 10/23/2024 Internet Access Answer Date Recorded Internet Access [...] Sign Reading Time Taken Comments Blood Pressure 128/88 11/06/2024 1:10 PM EDT Pulse 66 11/06/2024 1:00 PM EDT Temperature 36.3 ??C (97.3 ??F) 10/23/2024 2:47 PM ED T Respiratory Rate 16 11/06/2024 1:00 PM EDT Oxygen Saturation 95% 11/06/2024 1:00 PM EDT room air Inhaled Oxygen Concentration - - Weight 91.7 kg (202 lb 3.2 oz) 10/23/2024 2:47 P M EDT Height 144.8 cm (4' 9 ) 09/24/2024 9:41 AM EST Body Mass Index 43.76 09/24/2024 9:41 AM EST Plan of Treatment Upcoming Encounters Date Type Department Care Team (Late st Contact Info) Description 11/20/2024 3:30 PM EDT Medication Management [facility] [address] [place] [address] Kimberly Betancourt, PharmD [address] [place] [address] 12/31/2024 2:30 PM EDT Office Visit [facility] [address] [place] [address] Cathy Gerber, ANP [address] [place] [address] Health Maintenance Due Date Last Done Comments CT Colonography 1977 Colonoscopy 1977 Colorectal Cancer Screening 1977 Dental Oral Exam 1977 Dental Prophylaxis 1977 Dental X-Ray: Bitewings 1977 Dental X-Ray: Full Mouth 1977 FIT DNA/Cologuard 1977 FIT 1977 FOBT 1977 HIV Screening 1977 Sigmoidoscopy 1977 Eye Exam 12/13/1987 Alcohol/Substance Use Screening 1989 Hepatitis C Screening 12/13/1995 COVID-19 Vaccine ( season) 2024 09/25/2022, 08/24/2020, 08/03/2020 Influenza Vaccine (#1) 2024 8, 06/15/2013, 04/03/2012, Additional history exists Diabetes: Foot Exam 09/12/2024 09/12/2023, Lipid Panel 09/12/2024 09/12/2023 SDOH Screening 01/06/2025 01/07/2024 Diabetes: Hemoglobin A1C 01/22/2025 025, 09/12/2023, 11/27/2021, Additional history exists Family Planning (PISQ) 09/24/2025 09/24/2024 Depression Screening 10/23/2025 10/23/2024, 10/24/19 Diabetes: Urine Protein Screening 10/23/2025 10/23/2024, 09/12/2023 Tobacco Screening 10/23/2025 10/23/2024 DTaP/Tdap/Td Vaccines (3 - Td or Tdap) 09/07/2026 09/07/2016, 09/01/2012 Mammogram 10/08/2026 10/08/2024 Zoster Vaccines (1 of 2) 12/13/2027 Cervical Cancer Screening 09/24/2029 HPV/Cotest 09/24/2029 09/24/2024 Pap Smear 09/24/2029 09/24/2024 RSV Patients and Patients Aged 60 years [...] Procedure Name Priority Date/Time Associated Diagnosis Comments SARS COV2/INFLUENZA A/B AND RSV RNA QL NAAT Routine 11/16/2024 6:19 PM EDT STREP A NUCLEIC ACID Routine 11/16/2024 6:19 PM EDT TRICHOMONAS VAGINALIS RNA, QUALITATIVE, TMA Routine 10/23/2024 3:30 PM EDT ALBUMIN, RANDOM URINE W/CREATININE Routine 10/23/2024 3:30 PM EDT POCT GLYCATED HEMOGLOBIN, TOTAL Routine 10/23/2024 2:51 PM EDT Type 2 diabetes mellitus with hyperlipidemia (CMS/HCC) (CMS/HCC) POCT GLUCOSE Routine 10/23/2024 2:49 PM EDT Type 2 diabetes mellitus with hyperlipidemia (CMS/HCC) (CMS/HCC) BI MAMMOGRAM SCREENING TOMOSYNTHESIS BILATERAL Routine 10/08/2024 11:15 AM EDT Breast cancer screening by mammogram POCT WET MOUNT/LULU Routine 09/24/2024 11 :55 AM EST Vaginal discharge CHLAMYDIA/N. GONORRHOEAE AND T. VAGINALIS RNA, QUAL,TMA Routine 09/24/2024 10:10 AM EST Vaginal discharge PAP SMEAR Routine 09/24/2024 10:10 AM EST Routine cervical smear HPV DNA, LOW/HIGH RISK Routine 09/24/2024 10:10 AM EST LIPID PANEL, STANDARD Routine 09/12/2023 9:40 AM EST Type 2 diabetes mellitus with hyperlipidemia (CMS/HCC) from Last 3 Months or Most Recently Relevant to Health Maintenance Results * Strep A Nucleic Acid (11/16/2024 6:19 PM EDT) IDNOW SERIAL# [id number] [facility] Strep A Nucleic Acid Negative Negative [facility] Comment:All test results mus t be correlated with clinical findings.This test has not been evaluated for monitoring treatment ofinfection.Additional follow-up testing using the culture method isrequired if the result is negative and clinical symptomspersist, or in the event of an acute rheumatic feveroutbreak. 11/16/2024 6:19 PM EDT 11/16/2024 6:23 PM EDT us Generic External Data Provider LAB MICROBIOLOGY - GENERAL ORDERABLES Final Result [facility] [address] [place] [phone] * SARS-CoV-2 RNA, Influenza A/B, and RSV RNA, Ql NAAT (11/16/2024 6:19 PM EDT) Influenza A PCR NEGATIVE Negative [facility] Influenza B PCR NEGATIVE Negative [facility] Resp Syncy Virus RNA Qual PCR NEGATIVE Negative [facility] SARS COV2 PCR NEGATIVE Negative [facility] Comment:All test results mus t be correlated with clinical findings.Negative results do not preclude SARS-CoV2, influenza Avirus, influenza B virus and/or RSV infectionand should not be used as the sole basis for treatment orother patient management decisions. Negative results must becombined with clinical observations, patient history, andepidemiological information.This test has not been evaluated for monitoring treatment ofinfection.This test has been authorized by the FDA under an EmergencyUse Authorization (EUA) for use by authorized laboratories.Testing performed on the [employer] GeneXpert utilizingreal-time RT-PCR.All SARS CoV2 and positive influenza A/B results arereported to [facility]. 11/16/2024 6:19 PM EDT 11/16/2024 6:23 PM EDT [facility] External Data Provider LAB MICROBIOLOGY - GENERAL ORDERABLES Final Result Performing Organization Address [facility]/ZIP Co de Phone Number [facility] [address] [place] [phone] * Trichomonas vaginalis RNA, Qualitative, TMA (10/23/2024 3:30 PM EDT) Trichomas vaginalis RNA, QL, TMA NOT DETECTED NOT DETECTED [facility] Comment:For additional infor princess, please refer [email or web address](This link is being provided for informational/educational purposes only.)THIS TEST WAS PERFORMED AT:[facility] [place] [phone] ESPARZA MD 10/23/2024 3:30 PM EDT 10/23/2024 4:42 PM EDT [facility] LAB BODY FLUIDS AND STOOLS ORDER GAVI Final Result Performing Organization Address [facility]/ZIP Co de Phone Number [facility] [address] [place] [phone] * Albumin, Random Urine W/Creatinine (10/23/2024 3:30 PM EDT) Creatinine, Urine 138.11 mg/dL [facility] Microalbumin Urine 21.0 mg/L [facility] Microalbum Creatinine Ratio Ur 15.2 <30 ug/mg cr [facility] Comment:Albumin/Creatinine R atio Reference Ranges: Normal: < 30 ug/mg creatinine Microalbuminuria: 30 - 300 ug/mg creatinineClinical Albuminuria: > 300 ug/mg creatinine 10/23/2024 3:30 PM EDT 10/23/2024 4:42 PM EDT us Cathy RODRIGUEZ LAB URINE ORDERABLES Final Resul t [facility] [address] [place] [phone] * (ABNORMAL) POCT HGB A1C (10/23/2024 2:51 PM EDT) Hemoglobin A1C 9.2(A) 4.0 - 6.0 % QC Media Lot # [id number] Lot# Expiration Date Blood 10/23/2024 2:51 PM EDT us Cathy RODRIGUEZ POINT OF CARE TEST ENTER/EDIT OR DERABLES Final Result * (ABNORMAL) POCT Glucose (10/23/2024 2:49 PM EDT) Glucose Blood, POC 234(A) 60 - 200 mg/dL QC Media Lot # [id number] Lot# Expiration Date Blood Capillary blood specimen / Unknown 10/23/2024 2:49 PM EDT us Cathy Gerber ANP POINT OF CARE TEST ENTER/EDIT OR DERABLES Final Result * BI Mammogram Screening Tomosynthesis Bilateral (10/08/2024 11:15 AM EDT) Anatomical Region Laterality Modality Breast Bilateral Mammography 10/08/2024 11:1 5 AM EDT Narrative 10/16/2024 3:56 PM EDT ? [facility] ? [address] ?[place] [address] ?[phone] ? Mammography Report ? Signed ? Patient: Farr,Yesika M ?MR#: [id number] ?? 66 ? : 1975 ?Acct:[id number] ? Age/Sex: 48 / F ?ADM Date: 10/08/24 ? Loc: HO.MAMMO ? Attending Dr: Faisal Mendiola CNM ? Ordering Physician: FAISAL MENDIOLA CNM ?Results: 1 ?? Negative ? Date of Service: 10/08/24 ?Follow Up: 1 Year From Orig ?? inal Mammogram ? Procedure(s): MM tomosynthesis screening BI ?? Accession Number(s): [id number] ? cc: RIFAISAL BORREGO; Zahra Gerber [employer] ? EXAMINATION: ?? MM SCREENING DIGITAL BREAST TOMOSYNTHESIS, BILATERAL ? CLINICAL INFORMATION: ? Screening. Asymptomatic. ? COMPARISON: ?? Mammography: Baseline. ? TECHNIQUE: ?? Digital breast mammography with tomosynthesis is performed in both the ?? craniocaudal and mediolateral oblique views along with computer-aided ?? detection (CAD). ? FINDINGS: ?? There are scattered areas of fibroglandular density (ACR BI-RADS breast ?? composition Category b). ? There are no significant masses, abnormal calcifications, or other ?? abnormalities. ? MM/MM tomosynthesis screening BI ?? IMPRESSION: ?? No mammographic evidence of malignancy. ? ASSESSMENT: ? BI-RADS BI-RADS 1 - Negative ? RECOMMENDATION: ?? Routine annual mammography screening. ? 1 year F/U ? This examination should not preclude the clinical evaluation of a ?? suspicious palpable abnormality. ? This patient's information was entered into a reminder system with a ?? target due date for their next mammogram. ? Electronically signed by: ??Chrissy Penn DO ??10/16/2024 03:53 PM EDT ?? RP ? Dictated By: ?Chrissy Penn DO ? Signed By: ?<Electronically signed by Chrissy Penn, DO in OV> ? 10/16/24 1553 ? DD/ 1115 ? TD/TT: 10/08/24 1140 ? Corporate Director Talent Assessment: ? Procedure Note Sofi, Image - 10/16/2024 [facility] [address] [place] [address] Mammography Report Signed Patient: Yesika Farr [facility]#: [id number] 66 : 1975Acct:[id number] Age/Sex: 48 / FADM Date: 10/08/24 Loc: HO.MAMMO Attending Dr: Faisal Mendiola CNM Ordering Physician: FAISAL MENDIOLAesults: 1 Negative Date of Service: 10/08/24Follow Up: 1 Year From Orig inal Mammogram Procedure(s): MM tomosynthesis screening BI Accession Number(s): [id number] cc: FAISAL MENDIOLA CNM; Zahra Gerber [facility] EXAMINATION: MM SCREENING DIGITAL BREAST TOMOSYNTHESIS, BILATERAL CLINICAL INFORMATION: Screening. Asymptomatic. COMPARISON: Mammography: Baseline. TECHNIQUE: Digital breast mammography with tomosynthesis is performed in both the craniocaudal and mediolateral oblique views along with computer-aided detection (CAD). FINDINGS: There are scattered areas of fibroglandular density (ACR BI-RADS breast composition Category b). There are no significant masses, abnormal calcifications, or other abnormalities. MM/MM tomosynthesis screening BI IMPRESSION: No mammographic evidence of malignancy. ASSESSMENT: BI-RADS BI-RADS 1 - Negative RECOMMENDATION: Routine annual mammography screening. 1 year F/U This examination should not preclude the clinical evaluation of a suspicious palpable abnormality. This patient's information was entered into a reminder system with a target due date for their next mammogram. Electronically signed by: Chrissy Penn DO 10/16/2024 03:53 PM EDT Dictated By: Chrissy Penn DO Signed By: <Electronically signed by Chrissy Penn DO in OV> 10/16/24 1553 DD/ 1115 TD/TT: 10/08/24 1140 Corporate Director Talent Assessment: Faisal Mendiola CNM IMG BI PROCEDURES Final R esult * POCT fern test, vaginal fluid manually resulted (09/24/2024 11:55 AM EST) [facility] Prep Positive Comment:pH 4.5, few buds, ne g clue, neg whiff, neg wbc, neg trich Vaginal Fluid Vaginal structure / Unknown 09/24/2024 11:55 AM EST Impressions Faisal Mendiola CNM - 09/24/2024 11:55 AM EST yeast Faisal Mendiola CNM POINT OF CARE TEST ENTER/ EDIT ORDERABLES Final Result * STI testing add on (NG, CT, Trich) (09/24/2024 10:10 AM EST) Trichomonas (NAAT) [facility] CTNG Ref Lab [facility] Comment:TEST NOT PERFORMEDSp ecimen transport device didnot contain the collection swab. NG Ref Lab TNP [facility] Swab Cervix uteri structure / Unknown 09/24/2024 10:10 AM EST 10/02/2024 1:04 PM EDT Narrative [facility] - 10/09/2024 1:24 PM EDT Collection Date: [id number] by: BERHANE Tucker: Cervix Faisal Mendiola [facility] CYTOLOGY ORDERABLES F inal Result Performing Organization Address [facility] Co de Phone Number [facility] [address] [place] [phone] * HPV DNA, Low/High Risk (09/24/2024 10:10 AM EST) HPV High Risk Negative Negative [facility] HPV Genotype 16 Negative Negative [facility] HPV Genotype 18 Negative Negative [facility] Comment:HPV testing performe d at [facility] (CLIA#[id number]), [address] [place] [address].Testing for HPV was performed using the Sho YRLIE 6800system. The presence of HPV in the female genital tract isassociated with a number of diseases, including cervicalcarcinoma. The HPV DNA high risk pool tests for HPV 31, 33,35, 39, 45, 51, 52, 56, 58, 59, 66 and 68. The testing forHPV 16 and 18 genotypes has also been performed. A positiveresult indicates detection of nucleic acid sequences fromone or more subtypes, whereas a negative result indicatessuch sequences were not detected. 09/24/2024 10:1 0 AM EST 10/02/2024 1:05 PM EDT Faisal Mendiola [facility] BLOOD ORDERABLES Sandie l Result Performing Organization Address [facility] Co de Phone Number [facility] [address] [place] [address] [phone] * Pap Smear (09/24/2024 10:10 AM EST) Swab Cervix uteri structure / Unknown 09/24/2024 10:10 AM EST 09/25/2024 6:25 AM EST Narrative [facility] - 10/12/2024 8:35 AM EDT ----- ------- Name: Yesika Farr ? Age/Sex: 48/F ? : 1975 Unit#: [id number] ?? Attend Dr: FAISAL MENDIOLA CNM ?Re09/24/24 ?Status: DEP REF ? [facility] ? Disch: ? ----- ------- SPEC : [id number] ? RECD: 09/25/24-624 ? STATUS: ??SOUT ? REQ NUM: [id number] ? CHAVEZ: 09/24/24-1010 ? SUBM DR: FAISAL MENDIOLA CNM ? ENTERED: ??09/28/24 ?SP TYPE: Pap Smr ?OTHR : ? ORDERED: ??Pap Smear ? Interpretation ?? Satisfactory for evaluation. ?? Negative for intraepithelial lesion or malignancy. ?? No endocervical cells seen. ? HPV High Risk: ??Negative ? HPV Genotyping 16: ??Negative ?? HPV Genotyping 18: ??Negative ?Clinical Information LMP:unk Previous PAP test: Unk Other surgery: Other history: ? Material Received ?? ThinPrep-Cervix ----- ------- Signed (signature on file) LYSSA Huber (ASCP) 10/12/24 0835 ? ----- ------- ? END OF REPORT ? Faisal Mendiola [facility] CYTOLOGY ORDERABLES F inal Result Performing Organization Address [facility] de Phone Number [facility] [address] [place] [address] [phone] * Lipid Panel, Standard (09/12/2023 9:40 AM EST) Triglycerides 88 <150 mg/dL [facility] Comment:Desirable Triglyceri de: less than 150 mg/dLBorderline High Triglyceride 150-199 mg/dLHigh Triglyceride: 200-499 mg/dLVery High Triglyceride: greater than or equal to 5OO mg/dL Cholesterol 111 <200 mg/dL [facility] Comment:Desirable Cholestero l: less than 200 mg/dLBorderline High Cholesterol: 200-239 mg/dLHigh Cholesterol: greater than 239 mg/dL LDL Cholesterol Calculated 52 <100 mg/dL [facility] Comment:Desirable LDL: less than 100 mg/dLNear Optimal/Above Optimal LDL: 110- 129 mg/dLBorderline High LDL: 130-159 mg/dLHigh LDL: 160-189 mg/dLVery High LDL: greater than or equal to 190 mg/dL HDL Cholesterol 42 >40 mg/dL [facility] Comment:Desirable HDL: great er than 40 mg/dL Note: This HDL assay may give artificially low results in patients with liver disease. Blood Venous blood specimen / Unknown 09/12/2023 9:40 AM EST 09/12/2023 11:22 AM EST Cathy Gerber ANP LAB BLOOD ORDERABLES Final Resul t Performing Organization Address [facility] Co de Phone Number [facility] [address] [place] [address] [phone] from Last 3 Months or Most Recently Relevant to Health Maintenance Insurance [place] [facility] [place]ICA[place] [address] [place] [address] Care Teams Business Analyst Relationship Specialty Start Date End Date Cathy Gerber ANP [address] [place] [address] PCP - General Family Medicine 06/28/22
--- OUTSIDE RECORDS SUMMARY | 2024-11-16 19:15 | XMS_ITS | Encounter Summary ---
Author Organization [employer] Address [address] [place] [address] 7t [place] [address] Care Team Providers Care Environmental Maintenance Worker Name Role Phone Ctahy Gerber Primary Care Provider [phone] Reason for Visit * Reason Onset Date Comments Med Refill 07/05/2023 Encounter Details Date Type Department Care Team (Late st Contact Info) Description 07/05/2023 Refill [facility] [address] [place] [address] Cathy Gerber ANP [address] [place] [address] Gastroesophageal reflux disease, unspecified whether esophagitis present [...] - 07/05/2023 1:48 PM EST Tc from behavioral health care coordinator requesting medication refill for glucose blood (FREESTYLE LITE) test strip,Lancets 33G misc and omeprazole (PriLOSEC) [address] capsule documented in this encounter Plan of Treatment Upcoming Encounters Date Type Department Care Team (Late st Contact Info) Description 11/20/2024 3:30 PM EDT Medication Management [facility] [address] [place] [address] Kimberly Betancourt, YinD [address] [place] [address] 12/31/2024 2:30 PM EDT Office Visit [facility] [address] [place] [address] Cathy Gerber ANP [address] [place] [address] documented as of this encounter Visit Diagnoses Diagnosis Gastroesophageal reflux disease, unspecified whether esophagitis present documented in this encounter Care Teams Environmental Maintenance Worker Relationship Specialty Start Date End Date Cathy Gerber ANP [address] [place] [address] PCP - General Family Medicine 06/28/22 documented as of this encounter
--- OUTSIDE RECORDS SUMMARY | 2024-11-16 19:15 | XMS_ITS | Encounter Summary ---
Author Organization [employer] [facility] Address [address] [place] [address] 7[address] [place] [address] Care Team Providers Care Quilting Supervisor Name Role Phone Cathy Gerber Primary Care Provider Encounter Details Date Type Department Care Team (Late st Contact Info) Description 09/12/2022 Abstract [facility]INE [address] [place] [address] Cathy Gerber ANP [address] [place] [address] Social History Tobacco Use Types Packs/Day Years [...] Description 11/20/2024 3:30 PM EDT Medication Management [facility] [address] [place] [address] Kimberly Betancourt, PharmD [address] [place] [address] 12/31/2024 2:30 PM EDT Office Visit [facility] [address] [place] [address] Cathy Gerber ANP [address] [place] [address] documented as of this encounter Visit Diagnoses Not on filedocumented in this encounter Care Teams Quilting Supervisor Relationship Specialty Start Date End Date Cathy Gerber ANP [address] [place] [address] PCP - General Family Medicine 06/28/22 documented as of this encounter
--- OUTSIDE RECORDS SUMMARY | 2024-11-16 19:15 | XMS_ITS | Encounter Summary ---
Author Organization [employer] Address [address] [facility] 7t [place] [address] Care Team Providers Care Tent Worker Name Role Phone Cathy Gerber Primary Care Provider [phone] Reason for Visit * Reason Onset Date Comments Durable Medical Equipment 09/15/2024 Encounter Details Date Type Department Care Team ([facility] st Contact Info) Description 09/15/[address] [facility] [address] [place], [place] [phone] Cathy Gerber ANP [address] [place] [address] Durable Medical Equipment Social History Tobacco Use [...] gloves. Pt reports, it is for my [employer] . When asked what [employer] uses the gloves for, she stated, she [...] DME for Gloves Medium. Contact pt at [phone] documented in this encounter Plan of Treatment Upcoming Encounters Date Type Department Care Team (Late st Contact Info) Description 11/20/2024 3:30 PM EDT Medication Management [facility] [address] [place] [address] Kimberly Betancourt PharmD [address] [place] [address] [phone] 12/31/2024 2:30 PM EDT Office Visit [address] [address] Cathy Gerber ANP [address] [place] [address] documented as of this encounter Visit Diagnoses Not on filedocumented in this encounter Additional Health Concerns Assessment Noted Time PHQ-9 Depression Total Score: 0 09/12/19 24 10:17 AM EST documented as of this encounter Care Teams Tent Worker Relationship Specialty Start Date End Date Cathy Gerber ANP [address] [place] [address] [phone] PCP - General Family Medicine 06/28/22 documented as of this encounter
--- OUTSIDE RECORDS SUMMARY | 2024-11-16 19:15 | XMS_ITS | Encounter Summary ---
Author Organization [employer] Address [address] [facility] 7t [place] [address] Care Team Providers Care Business Information Analyst Name Role Phone Cathy Gerber Primary Care Provider [phone] Reason for Visit * Reason Onset Date Comments Appointment Request 04/24/2024 Encounter Details Date Type Department Care Team ([facility] Contact Info) Description 04/24/2024 Telephone [facility] [address] [place], [place] [phone] Cathy Gerber ANP [address] [place] [address] Appointment Request Social History Tobacco Use Types [...] patient calling to reschedule appt from 04/24 service writer advisor did attempt to reschedule however thereis no availability documented in this encounter Plan of Treatment Upcoming Encounters Date Type Department Care Team (Late st Contact Info) Description 11/20/2024 3:30 PM EDT Medication Management [facility] [address] [place] [address] Kimberly Betancourt, PharmD [address] [place] [address] 12/31/2024 2:30 PM EDT Office Visit [facility] [address] [place] [address] Cathy Gerber, ANP [address] [place] [address] documented as of this encounter Visit Diagnoses Not on filedocumented in this encounter Additional Health Concerns Assessment Noted Time PHQ-9 Depression Total Score: 0 09/12/19 24 10:17 AM EST documented as of this encounter Care Teams Business Information Analyst Relationship Specialty Start Date End Date Cathy Gerber ANP [address] [place] [address] PCP - General Family Medicine 06/28/22 documented as of this encounter
--- OUTSIDE RECORDS SUMMARY | 2024-11-16 19:15 | XMS_ITS | Encounter Summary ---
Author Organization [employer] Address [address] [facility] 7t [place] [address] Care Team Providers Care Imaging Nurse Name Role Phone Cathy Gerber Primary Care Provider [phone] Reason for Visit * Reason Onset Date Comments Referral 09/15/2024 Encounter Details Date Type Department Care Team ([facility] st Contact Info) Description 09/15/2024 Telephone [facility] [address] [place] [address] Cathy Gerber ANP [address] [place] [address] Referral Social History Tobacco Use Types Packs/Day [...] if Possible to get a Doctor in [place] Instead of [place]. Contact pt at [phone] documented in this encounter Plan of Treatment Upcoming Encounters Date Type Department Care Team (Late st Contact Info) Description 11/20/2024 3:30 PM EDT Medication Management [facility] [address] [place] [address] Kimberly Betancourt, PharmD [address] [place] [address] 12/31/2024 2:30 PM EDT Office Visit [facility] [address] [place] [address] Cathy Gerber ANP [address] [place] [address] documented as of this encounter Visit Diagnoses Not on filedocumented in this encounter Additional Health Concerns Assessment Noted Time PHQ-9 Depression Total Score: 0 09/12/19 24 10:17 AM EST documented as of this encounter Care Teams Imaging Nurse Relationship Specialty Start Date End Date Cathy Gerber ANP [address] [place] [address] PCP - General Family Medicine 06/28/22 documented as of this encounter
--- OUTSIDE RECORDS SUMMARY | 2024-11-16 19:15 | XMS_ITS | Encounter Summary ---
Author Organization [employer] [facility] Address [address] [place] [address] 7t [place] [address] Care Team Providers Care Lead Manufacturing Technician Name Role Phone Cathy Gerber Primary Care Provider Encounter Details Date Type Department Care Team (Late st Contact Info) Description 08/30/2022 Abstract [facility] [address] [place] [address] Cathy Gerber ANP [address] [place] [address] Social History Tobacco Use Types Packs/Day Years [...] Description 11/20/2024 3:30 PM EDT Medication Management [facility] [address] [place] [address] Kimberly Betancourt, PharmD [address] [place] [address] 12/31/2024 2:30 PM EDT Office Visit [facility] [address] [place] [address] Cathy Gerber ANP [address] [place] [address] documented as of this encounter Visit Diagnoses Not on filedocumented in this encounter Care Teams Lead Manufacturing Technician Relationship Specialty Start Date End Date Cathy Gerber ANP [address] [place] [address] PCP - General Family Medicine 06/28/22 documented as of this encounter
--- OUTSIDE RECORDS SUMMARY | 2024-11-16 19:16 | XMS_ITS | Encounter Summary ---
Author Organization [employer] [facility] Address [address] [place] [address] 7t [place] [address] Care Team Providers Care Body Cleaner Name Role Phone Jennifer Mckenzie DO Primary Care Provider [phone] Cathy Gerber Primary Care Provider [phone] Encounter Details Date Type Department Care Team (Latest Contact Info) Description 05/18/2021 Abstract [facility] Dental, Provider, DDS Social History [...] Description 11/20/2024 3:30 PM EDT Medication Management [facility] [address] [place] [address] Kimberly Betancourt, PharmD [address] [place] [address] 12/31/2024 2:30 PM EDT Office Visit [facility] [address] [place] [address] Cathy Gerber ANP [address] [place] [address] documented as of this encounter Visit Diagnoses Not on filedocumented in this encounter Care Teams Body Cleaner Relationship Specialty Start Date End Date Jennifer Mckenzie DO [address] [place] [address] PCP - General Family Medicine 04/06/22 06/27/22 Cathy Gerber ANP [address] [place] [address] PCP - General Family Medicine 06/28/22 documented as of this encounter
--- OUTSIDE RECORDS SUMMARY | 2024-11-16 19:16 | XMS_ITS | Encounter Summary ---
Author Organization [employer] Address [address] [facility] 7t [place] [address] Care Team Providers Care Pneumatic Jack Operator Name Role Phone Cathy Gerber Primary Care Provider [phone] Encounter Details Date Type Department Care Team (Late st Contact Info) Description 11/16/2024 Orders Only GENERIC EXTERNAL DATA DEPARTMENT Provider, Generic External Data Social History Tobacco Use Types Packs/Day Years [...] t he electric, gas, oil or water [employer] threatened to shut off services in your [...] Description 11/20/2024 3:30 PM EDT Medication Management [facility] [address] [place] [address] Kimberly Betancourt, PharmD [address] [place] [address] 12/31/2024 2:30 PM EDT Office Visit [facility] [address] [place] [address] Cathy Gerber, ANP [address] [place] [address] documented as of this encounter Procedures Procedure Name Priority Date/Time Associated Diagnosis Comments STREP A NUCLEIC ACID Routine 11/16/2024 6:19 PM EDT SARS COV2/INFLUENZA A/B AND RSV RNA QL NAAT Routine 11/16/2024 6:19 PM EDT documented in this encounter Results * SARS-CoV-2 RNA, Influenza A/B, and RSV RNA, Ql NAAT (11/16/2024 6:19 PM EDT) Influenza A PCR NEGATIVE Negative [facility] Influenza B PCR NEGATIVE Negative [facility] Resp Syncy Virus RNA Qual PCR NEGATIVE Negative [facility] SARS COV2 PCR NEGATIVE Negative [facility] Comment:All test results mus t [...] use by authorized laboratories.Testing performed on the [employer] GeneXpert utilizingreal-time RT-PCR.All SARS CoV2 and positive influenza A/B results arereported to [facility]. 11/16/2024 6:19 PM EDT 11/16/2024 6:23 PM EDT Generic External Data Provider LAB MICROBIOLOGY - GENERAL ORDERABLES Final Result Performing Organization Address [facility]/ZIP Co de Phone Number [facility] [address] [place] [phone] * Strep A Nucleic Acid (11/16/2024 6:19 PM EDT) Pathologist [facility] [employer]NOW SERIAL# [id number] [facility] Strep A Nucleic Acid Negative Negative [facility] Comment:All test results mus t be correlated with clinical findings.This test has not been evaluated for monitoring treatment ofinfection.Additional follow-up testing using the culture method isrequired if the result is negative and clinical symptomspersist, or in the event of an acute rheumatic feveroutbreak. 11/16/2024 6:19 PM EDT 11/16/2024 6:23 PM EDT Generic External Data Provider LAB MICROBIOLOGY - GENERAL ORDERABLES Final Result Performing Organization Address [facility] Co de Phone Number [facility] [address] [place] [phone] documented in this encounter Visit Diagnoses Not on filedocumented in this encounter Additional Health Concerns Assessment Noted Time PHQ-9 Depression Total Score: 20 025 3:28 PM EDT documented as of this encounter Care Teams Pneumatic Jack Operator Relationship Specialty Start Date End Date Cathy Gerber ANP [address] [place] [address] PCP - General Family Medicine 06/28/22 documented as of this encounter
--- OUTSIDE RECORDS SUMMARY | 2024-11-16 19:16 | XMS_ITS | Encounter Summary ---
Author Organization [employer] Address [address] [facility] 7t [place] [address] Care Team Providers Care Marine Service Station Attendant Name Role Phone Cathy Gerber Primary Care Provider [phone] Reason for Visit * Reason Comments Med Refill Encounter Details Date Type Department Care Team ([facility] st Contact Info) Description 11/06/2024 Refill [facility] MEDICINE [address] [place] [address] Cathy Gerber ANP [address] [place] [address] Chronic pain syndrome; Restless legs; Neuropathic pain Social History Tobacco Use Types Packs/Day Years [...] Description 11/20/2024 3:30 PM EDT Medication Management [facility] MEDICINE [address] [place] [address] Kimberly Betancourt, PharmD [address] [place] [phone] 12/31/2024 2:30 PM EDT Office Visit [facility] [address] [place] [address] Cathy Gerber ANP [address] [place] [address] documented as of this encounter Visit Diagnoses Diagnosis Chronic pain syndrome Restless legs Restless legs syndrome (RLS) Neuropathic pain documented in this encounter Additional Health Concerns Assessment Noted Time PHQ-9 Depression Total Score: 20 025 3:28 PM EDT documented as of this encounter Care Teams Marine Service Station Attendant Relationship Specialty Start Date End Date Cathy Gerber ANP [address] [place] [phone] PCP - General Family Medicine 06/28/22 documented as of this encounter
--- OUTSIDE RECORDS SUMMARY | 2024-11-16 19:16 | XMS_ITS | Data Portability ---
Author Organization [facility] [employer] [facility], Main Office Address [address], [address] [place] [address] Care Team Providers Care Percussion Teacher Name Role Phone [facility] Primary Care Provider [phone] Assessment Encounter Date Assessment Date Assessment LastModified [...] By Organization Details Last Modified Time 04/26/2021 [id number] F/U Appointments : see psychologist social paperwork for details Total time spent on discharge: 60 minutes Scripts for all meds and DME for 30-day supply given to patient [email or web address] Not available 04/26/2021 21:51:13 Reason for Referral None Reported. Problems Name Problem SNOMED Code Status Onset Date Resolution Date Notes Provider Name and Address Organization Details Recorded Time Seizure disorder 288385347 Active 2019 Jose A Lassiter MD [address] , [address], [place], [address], [facility] [employer] 0 13:55:28 Generalized anxiety disorder 56520429 Active 2019 MARK Ramirez [address] , [address], [place], [address], [facility] 0 09:49:37 SARS-CoV-2 Active 2019 RICKEY RamirezP [address], [address], [place], [address], [facility] 0 15:33:01 Liver enzymes level above reference range 580333730 Active 2019 MARK Ramirez [address], [address], [place], [address], [facility] 0 15:39:51 Neuropathy 314462104 Active 2019 Moraima Hanson MD [address], [address], [place], [address], [facility] 0 01:05:16 Asthma 304582122 Active 2020 Kristi Mary null, [facility] 1 14:43:52 Restless legs 36625479 Active 2020 Moraima Hanson MD [address], [address], [place], [address], [facility] 1 19:06:32 Hemiplegia and/or hemiparesis following stroke 9782206916783 7 Active 2018 Moraima Hanson MD [address], [address], [place], [address], [facility] 9 14:54:01 Essential hypertensio n 61891456 Active 2018 Moraima Hanson MD [address], [address], [place], [address], [facility] 9 14:57:00 History of cocaine abuse 2655655196034 06 Active 2018 Moraima Hanson MD [address], [address], [place], [address], [facility] 9 14:57:30 Schizoaffec tive disorder, mixed type 485047706 Active 2018 Moraima Hanson MD [address], [address], [place], [address], [place] [employer] 9 14:59:21 Insomnia 817462979 Active 2018 Moraima Hanson MD [address], [address], [place], [address], [facility] [employer] 9 15:02:16 History of alcoholism 907150002 Active 2018 Moraima Hanson MD [address], [address], [place], [address], [facility] [employer] 9 15:05:25 Chronic pain syndrome 562390042 Active 2018 Moraima Hanson MD [address], [address], [place], [address], [employer] 9 01:07:55 Diabetes mellitus 99560463 Active 2019 Kristi Hernandez [facility], [employer] 0 11:07:50 Problem Notes None recorded. Medical Equipment None Reported. Allergies No known drug allergies Medications Not known to be on any medication Vitals Date Recorded Body height Systolic blood pressure Diastolic blood pressure Provider Name and Address Organization Details Last Updated DateTime 02/28/2021 142.24 cm 125 mm[Hg] 86 mm[Hg] Kristi Hernandez [place] [employer] 02/28/2021 10:01:32 Date Recorded Body height Heart rate Respiratory rate Body temperature Oxygen saturation Oxygen saturation in Arterial blood by Pulse oximetry Systolic blood pressure Diastolic blood pressure Provider Name and Address Organization Details Last Updated DateTime 142.24 cm 95 /min 20 /min 97.5 [degF] 96 % 96 % 129 mm[Hg] 87 mm[Hg] MARK Ramirez [address], [address], [place], [address], [employer] 1 11:18:00 Date Recorded Body height Systolic blood pressure Diastolic blood pressure Provider Name and Address Organization Details Last Updated DateTime 04/10/2021 142.24 cm 126 mm[Hg] 79 mm[Hg] Kristi Hernandez [facility] [employer] 04/10/2021 15:45:20 Date Recorded Body height Body temperature Systolic blood pressure Diastolic blood pressure Provider Name and Address Organization Details Last Updated DateTime 04/21/2021 142.24 cm 97.1 [degF] 132 mm[Hg] 82 mm[Hg] BIMAL NGUYEN [address], [address], [place], [address] , [employer] 12:15:12 Date Recorded Body height Body temperature Heart rate Respiratory rate Oxygen saturation Oxygen saturation in Arterial blood by Pulse oximetry Body mass index (BMI) Body weight Systolic blood pressure Diastolic blood pressure Provider Name and Address Organization Details Last Updated DateTime 142.24 cm 97.3 [degF] 84 /min 18 /min 97 % 97 % 53.9 kg/m2 638702. 25 g 132 mm[Hg] 82 mm[Hg] EM NAIR PA-C [address], [place], [address], [employer] 21:23:07 Social History Question Answer Notes LastModified by Organizat ion Details LastModified Time Tobacco Smoking Status Former Smoker hasn't smoked since CVA in 11/07 Not Available [employer] 05/17/2020 03:13:22 Do You Have An Advance Directive? Yes Full Code [id number] Information not available 05/17/2020 What Is Your Level Of Alcohol Consumption? None Hx Of Heavy Use [id number] Information not available 05/17/2020 How Much Tobacco Do You Chew? None [id number] Information not available 05/17/2020 Do You Or Have You Ever Used E-cigarettes Or Vape? Former User Of Electronic Cigarettes [id number] Information not available 05/17/2020 Do You Have A Medical Power Of Document Manager? No [id number] Information not available 05/17/2020 What Was The Date Of Your Most Recent Tobacco Screening? 10/28/2020 [email or web address] Information not available 11/05/2020 Do You Or Have You Ever Used Smokeless Tobacco? Never Used Smokeless Tobacco [id number] Information not available 05/17/2020 How Much Tobacco Do You Smoke? No [id number] Information not available 05/17/2020 How Many Years Have You Smoked Tobacco? 25 [id number] Information not available 05/17/2020 Sex: Unknown Functional [...] mcg/0.3 mL dose 08/24/2020 completed Loisberyl Jo [facility] 10/25/2020 14:49:01 COVID-19, mRNA, LNP-S, PF, 30 mcg/0.3 mL dose 08/03/2020 completed Lois Jo [facility] 10/25/2020 14:49:09 Past Encounters Encounter ID Performer Location Encounter Start Date Encounter Closed Date Diagnosis/Indication Diagnosis SNOMED-CT Code Diagnosis ICD10 Code Diagnosis Note [id number] Moraima Hanson MD [facility] on [address] [place] [address] 07/16/2019 13:30:56 07/29/2019 16:09:58 Hemiplegia and/or hemiparesis following stroke 7746860130 9107 I69.151 With minimal function of RLE and better, but not normal function of RUE. Needs PT/OT for strengthen ing and function. Hopefully will still have continued improvemen t. Essential hypertension 75329934 I10 Elevated this AM, then improved. May be due to new environmen t. Monitor closely and adjust meds as needed. parameters are SBP<130 and DBP<80. Continue lisinopril 10 mg qd and doxazosin 1 mg qd. Also on clonidine 0.2 mg BID. for mood which will help BP. Monitor BP and labs. History of cocaine abuse 5718280544 24755 F14.10 No use in 8 months. Will likely be LTC. Monitor for urge to use. Schizoaffe ctive disorder, mixed type 617479152 F25.0 With psych involvemen t at prior facility. With depression regarding physical limitation s. Continue Cymbalta 30 mg BID, Remeron 7.5 mg qhs, Buspar 10 mg TID, Abilify 7.5 mg qd, and clonidine 0.2 mg BID. Psych consult. Chronic pain syndrome 37 7078767 G89.4 With right leg pain since stroke. Parasthesi as. She says gabapentin doesn't help. May need increased dose, but for now will continue gabapentin 600 mg QID, lidoderm patch, cyclobenza lalo 10 mg BID and ibuprofen 400 mg TID prn. Insomnia 559553382 G47.0 9 Meds as above. Monitor sleep patterns. History of alcoholism 16 6860793 F10.21 Continue Folic acid and thiamine. Monitor [id number] Kristi Hernandez [facility] on [address] [place] [address] 07/27/2019 10:31:51 08/04/2019 16:25:19 Hemiplegia and/or hemiparesis following stroke 1944163836 9107 I69.151 With minimal function of RLE and better, but not normal function of RUE.Cont PT/OT Essential hypertension 03769406 I10 BP mostly well controlled Continue lisinopril 10 mg qd and doxazosin 1 mg qd. Monitor BP and labs. Schizoaffe ctive disorder, mixed type 728587232 F25.0 Continue Cymbalta 30 mg BID, Remeron 7.5 mg qhs, Buspar 10 mg TID, Abilify 7.5 mg qd, and clonidine 0.2 mg BID. Psych consult. History of alcoholism 16 2361792 F10.21 Continue Folic acid and thiamine. Monitor Diabetes mellitus 727265 09 E11.9 Add metformin 500 mg BIDSliding scale insulin TID-will attempt to d/c this if can control glucose with oral agentsObta in HbA1c now-was 5.4 in r blood glucose [id number] Kristi Hernandez [facility] on [address] [place] [id number] 08/03/2019 14:54:49 08/05/2019 13:34:01 Diabetes mellitus 79697754 E11.9 Increase metformin 850 mg BID-goal to d/c sliding scale insulin if can control with oral agents aloneSlidi ng scale insulin TIDMonitor blood glucose [id number] Kristi Hernandez [facility] on [address] [place] [address] 08/12/2019 08:07:16 08/14/2019 16:30:28 Diabetes mellitus 45085074 E11.9 Increase metformin 1000 mg BIDSliding scale insulin TIDMonitor blood glucose Repeat HbA1c in October Hemiplegia and/or hemiparesis following stroke 3612324309 9107 I69.151 With minimal function of RLE and better, but not normal function of RUE.Cont PT/OT Essential hypertension 04282732 I10 BP well controlled Continue lisinopril 10 mg qd and doxazosin 1 mg qd. Monitor BP and labs. Schizoaffe ctive disorder, mixed type 260919941 F25.0 Continue Cymbalta 30 mg BID, Remeron 7.5 mg qhs, Buspar 10 mg TID, Abilify 7.5 mg qd, and clonidine 0.2 mg BID. Psych consult. History of alcoholism 16 5332914 F10.21 Continue Folic acid and thiamine. Monitor Insomnia 610854986 G47.0 9 Previously on trazodone and seroquel however states these medication s caused her to gain weightMela tonin ineffectiv e per patientWil [place] [id number] Kristi Ames [facility] on [address] [place] [id number] 08/17/2019 12:32:07 08/25/2019 08:58:18 Tonic-clonic seizure 83034110 G40.309 Send to ED to r/o new onset seizure disorder Diabetes mellitus 984149 09 E11.9 Metformin 1000 mg BIDSliding scale insulin TIDMonitor blood glucose-cu rrently stable Hemiplegia and/or hemiparesis following stroke 9421287749 9107 I69.151 With minimal function of RLE and better, but not normal function of RUE.Cont PT/OT [id number] [facility] [address] [place] [address] 08/18/2019 11:16:05 08/25/2019 09:28:10 Tonic-clonic seizure 33151558 G40.309 Request neurology consult for seizure work-upMon itor for further seizure activity Hemiplegia and/or hemiparesis following stroke 7972898624 9107 I69.151 With minimal function of RLE and better, but not normal function of RUE.Cont PT/OT [id number] [facility] [address] [place] [id number] 08/31/2019 12:41:20 09/03/2019 09:55:53 Tonic-clonic seizure 19703727 G40.309 Was recently started on KeppraNeur o consult states if skin change/noble h develops to immediatel y d/c medKeppra now d/c'dWill have nursing update neurology and request alternativ e medSeizure precaution s in place [id number] Jose A Lassiter MD [facility] on [address] [place] [address] 09/15/2019 13:51:15 09/21/2019 15:28:53 Seizure disorder 509977085 G40.89 eval by dano agudelo keppra to 500 mg bidcheck level in 2 weeksmonit or for activityEE G to be scheduled through neuro Essential hypertension 14288541 I10 doxazosin 1 mg qdclonidin e 0.2 mg bidlisinop ril 10 mg qdmonitor bptitrate if elevating Schizoaffe ctive disorder, mixed type 609414233 F25.0 at baselineco ntinue supportive carepsych [place] [id number] MARK Ramirez [facility] on [address] [place] [id number] 09/21/2019 09:32:37 09/24/2019 10:57:41 Chronic pain syndrome 811555897 G89.4 will trial tramadol 25 mg 1 q 12 hrs prn paincontin ue tylenol prn and gabapentin 600 mg q 6 hrsmonitor for pain relief though would avoid increasing med 2/2 hx of polysubsta nce abuseif tramadol doesn't help then it should be discontinu ed Generalize d anxiety disorder 13369493 F41.1 will trial atarax 25 mg 1 q 6 hrs prn anxietyavo id benzos with hx of polysubsta nce abuse [id number] Kristi Hernandez [facility] on [address] [place] [id number] 10/13/2019 13:34:08 10/20/2019 14:48:17 Diabetes mellitus 27480175 E11.9 Metformin 1000 mg BIDAdd lantus 8 units QHS Sliding scale insulin TIDMonitor blood glucoseRep eat HbA1c Olivia Essential hypertension 46401808 I10 BP well controlled Continue lisinopril 10 mg qd and doxazosin 1 mg qd. Monitor BP and labs. Hemiplegia and/or hemiparesis following stroke 3053417442 9107 I69.151 With right hemiparesi sCont PT/OT Seizure disorder 6235588 02 G40.89 eval by neurologyk eppra 500 mg bidf/u with neuro as scheduled Schizoaffe ctive disorder, mixed type 579663245 F25.0 at baselineco ntinue supportive carepsych [place] [id number] Kristi Hernandez [facility] on [address] [place] [id number] 10/27/2019 13:10:01 10/29/2019 10:33:47 Diabetes mellitus 23766284 E11.9 Metformin 1000 mg BIDIncreas e lantus 16 units QHSSS insulin TIDMonitor blood sugars [id number] Kristi Hernandez [facility] on [address] [place] [id number] 11/02/2019 11:10:12 11/03/2019 18:04:58 Seizure disorder 000593872 G40.89 Increase keppra 1000 mg bidKeppra level in 1 weekMonito r for activityf/ u with neuro as scheduled [id number] BIMAL NGUYEN [facility] on [address] [place] [address] 11/09/2019 14:26:42 11/17/2019 08:35:51 Tachycardia 7549059 R00.0 Z20.828 COVID 19 swab nowroom on precaution s [id number] MARK Ramirez [facility] on [address] [place] [id number] 11/12/2019 15:25:48 11/17/2019 09:48:53 SARS-CoV-2 206958842 U07.1 monitor temp, sats q shiftmonit or for change in status, resp or gi distresssu pportive careO2 prn hypoxiaIV fluids if pt becomes dehydrated dc ibuprofen Liver enzy mes level above reference range 639969173 R74.8 dc tylenolCMP weekly on Mondaysdc metformin due to liver injury as belowconsi chelsea further med review if LFTs remain elevated Diabetes mellitus 811348 09 E11.9 dc metformin due to liver injury 2/2 COVID with elevated liver enzymescon tinue humalog sliding scalemonit or accuchecks TIDstart lantus 5 units q pm and adjust as needed [id number] Moraima Hanson MD [facility] on [address] [place] [id number] 11/13/2019 13:17:23 11/17/2019 10:21:57 SARS-CoV-2 298190861 U07.1 Continue to monitor closely for hypoxia or fever. Also monitor po intake and use IV fluids if needed.O2 prn for hypoxia.No w with cough, but normal lung sounds. No CXR needed at this point. Liver enzy mes level above reference range 261794970 R74.8 Hepatotoxi c meds d/c'd yest. Had nl. LFTs when checked in 07/2019. Continue to monitor for worsening. Avoid hepatotoxi c meds as able. Cannot d/c keppra. Diabetes mellitus 040223 09 E11.9 Metformin d/c'd yest. Continue to monitor accuchecks TID and continue lantus 5 units qpm [id number] BIMAL [facility] on [address] [place] [id number] 11/19/2019 15:14:46 11/26/2019 15:08:13 SARS-CoV-2 379847438 U07.1 Continue to monitor closely for hypoxia or fever. Also monitor po intake and use IV fluids if needed.O2 prn for hypoxia.No w with cough, but normal lung sounds. No CXR needed at this point. Liver enzy mes level above reference range 428800189 R74.8 will repeat next week to see if improved Diabetes mellitus 403812 09 E11.9 add back metformin 500 mg BID Continue to monitor accuchecks TID and continue lantus 5 units qpm, may need to increase as her sugars are poorly controlled and were not much better on the metformin alone [id number] BIMAL [facility] on [address] [place] [id number] 11/23/2019 16:15:36 11/27/2019 08:47:48 SARS-CoV-2 494748516 U07.1 Continue to monitor closely for hypoxia or fever. Also monitor po intake and use IV fluids if needed.O2 prn for hypoxia.No w with cough, but normal lung sounds. No CXR needed at this point. Liver enzy mes level above reference range 776443307 R74.8 repeat LFTs tomorrow Diabetes mellitus 814379 09 E11.9 continue metformin 500 mg BID increase lantus to 7 units QHS monitor accuchecks QID [id number] BIMAL [employer] [facility] on [address] [place] [id number] 11/24/2019 13:01:25 11/27/2019 09:25:49 SARS-CoV-2 107528164 U07.1 patient asymptomat ic,only dry cough likely on the end of illness monitor for symptom based resolution continue to monitor vitals Liver enzy mes level above reference range 577011996 R74.8 repeat LFTs tomorrow Diabetes mellitus 767258 E11.9 continue metformin 500 mg BID increase lantus to 7 units QHS monitor accuchecks QID [id number] [facility] [address] [place] [address] 11/25/2019 19:25:08 11/27/2019 10:23:44 SARS-CoV-2 207066338 U07.1 patient asymptomat ic,only dry cough likely on the end of illness monitor for symptom based resolution continue to monitor vitals may come off precaution s 12/07 Liver enzy mes level above reference range 604664941 R74.8 much improved 80/76consi chelsea increase metformin to 1000 mg BID Diabetes mellitus 112666 09 E11.9 continue metformin 500 mg BID- consider increase to 1000 mg BID increase lantus to 10 units QHS monitor accuchecks QID [id number] BIMAL [employer] [facility] on [address] [place] [id number] 12/02/2019 11:51:27 12/08/2019 10:28:31 SARS-CoV-2 065878869 U07.1 Resolved and now off precaution s Liver enzy mes level above reference range 235320727 R74.8 much improved 80/76 Diabetes mellitus 505304 09 E11.9 Increase metformin to 1000 mg BID continue lantus to 10 units QHS monitor accuchecks QID- may increase lantus if needed [id number] [facility]iter [facility] [address] [place] [id number] 12/10/2019 14:10:05 12/15/2019 09:57:22 SARS-CoV-2 397420575 U07.1 recent dxnow appears past acute phase in recovery towards baselinemo nitor for change in presentati on and secondary infection Schizoaffe ctive disorder, mixed type 288232724 F25.0 currently stable at baselineco ntinue supportive carepsych to followtitr ate meds prn Essential hypertension 79783146 I10 continue current meds monitor bptitrate as needed if not responding [id number] [facility] on [address] [place] [id number] 01/01/2020 13:07:57 01/05/2020 09:45:19 Piercing of external ear 319486913 Z41.3 No signs of infection currentlyR eviewed proper care of piercing to avoid potential infectionA hampton that piercings will need to be removed if become infectedWi ll monitor [id number] Kristi Hernandez [facility] on [address] [place] [id number] 02/03/2020 15:09:59 02/09/2020 14:21:38 Fall 8847106 R29.6 Ambulates with walker independen tlyPT eval Pain of ri ght hip joint 8797406481 28010 M25.551 Able to weight bear without painNo deformity of legDo not feel x-ray is needed at this timeWill monitor and if pain persists consider imaging [id number] MARK Ramirez [facility] on [address] [place] [id number] 02/04/2020 15:33:22 02/09/2020 14:34:16 SARS-CoV-2 996684571 U07.1 recovered Schizoaffe ctive disorder, mixed type 664590315 F25.0 supportive careremero n 7.5 mg qhscymbalt a 30 mg bidbuspar 10 mg tidpsych prnadjust meds prn Essential hypertension 89791572 I10 bp elevated most of the timewill increase lisinopril to 20 mg qdclonidin e 0.2 mg biddoxazos in 1 mg qdmonitor bp daily and check CMP on 02/07adjust meds prn Diabetes mellitus 763705 09 E11.9 off metformin due to liver injury 2/2 COVID with elevated liver enzymesast /alt 78/75 on continue humalog sliding scalemonit or accuchecks TIDincreas e lantus to 15 units q pm and adjust as needed [id number] Kristi Hernandez [facility] on [address] [place] [id number] 02/05/2020 16:44:28 02/09/2020 14:23:45 Gastroesophageal reflux disease without esophagitis 273074292 K21.9 Add tums PRNIf sxs persist will add PPIMonitor Essential hypertension 02247422 I10 Lisinopril increased 20 mg daily 02/03 BP currently stable Monitor bp and adjust meds PRN [id number] MARK Ramirez [facility] on [address] [place] [phone] 02/12/2020 13:40:20 02/16/2020 13:34:57 Chronic pain syndrome 704706430 G89.4 continue tramadol 25 mg 1 q 12 hrs prn paincontin ue tylenol prn and gabapentin 600 mg q 6 hrsmonitor for pain relief though would avoid increasing med 2/2 hx of polysubsta nce abusewill increase flexeril to 20 mg qhs and continue flexeril 10 mg bidmonitor for relief Insomnia 020633487 G47.0 9 continue trazodone 50 mg qhswill add trazodone 50 mg qhs prn insomniamo nitor for effect [id number] Kristi Hernandez [facility] on [address] [place] [id number] 02/19/2020 13:55:41 02/24/2020 10:55:41 Dysuria 35090444 R30.0 Obtain UA, C&S nowEncoura ge fluids Monitor [id number] Kristi Hernandez [facility] on [address] [place] [id number] 3 03/08/2020 10:49:53 03/15/2020 11:56:31 Hemiplegia and/or hemiparesis following stroke 1144575919 9107 I69.151 Increased neuropathi c painSuppor tive care Neuropathy 994849840 G62 .89 Increase gabapentin 900 mg TIDAlso has tramadol PRN Monitor for pain control [id number] Kristi Hernandez [facility] on [address] [place] [id number] 3 03/18/2020 09:56:58 03/22/2020 10:02:41 Diabetes mellitus 29968963 E11.9 Metformin 1000 mg BIDIncreas e Lantus 25 units QHS continue humalog sliding scalemonit or accuchecks TID Liver enzy mes level above reference range 307838147 R74.8 Last checked 02/07Will repeat 03/21If remain elevated will check hepatitis panel [id number] Kristi Hernandez [facility] on [address] [place] [id number] 3 03/21/2020 09:14:12 03/24/2020 11:17:51 Edema of lower extremity 935926822 R60.0 Mild edema of R legEncoura ge elevationC ompression stocking to R leg on AM, off HSMonitor [id number] Moraima Hanson MD [facility] on [address] [place] [id number] 3 03/25/2020 16:08:10 03/30/2020 10:14:54 Diabetes mellitus 54959845 E11.9 With very elevated HgA1C in 10/2019, and with high daily accuchecks .Lantus just increased from 15U to 25U on 03/18 Continue Metformin 1000 mg BID and humalog sliding scaleMonit or accuchecks TID and recheck HgA1C on 03/29. Liver enzy mes level above reference range 272075556 R74.8 Almost WNL on 03/21Hepati tis panel neg.Likely fatty liver.Will recheck with next labs and consider GI consult if still elevated. Neuropathy 941735957 G62 .89 With continued pain into right [...] pain control Hemiplegia and/or hemiparesis following stroke [id number] 9107 I69.151 Increased neuropathi c pain as above. Continue Supportive care Chronic pain syndrome 37 7582429 G89.4 Meds as above, also cyclobenza lalo 20 mg qhs and 10 mg bidMonitor pain sxs. Insomnia 830325763 G47.0 9 Continue trazodone 50 mg qhs and repeat prn insomniaMo nitor sleep patterns. SARS-CoV-2 638923915 U07 .1 recovered Monitor for sequelae. Schizoaffe ctive disorder, mixed type 860082969 F25.0 Mood good.Muriel nue remeron 7.5 mg qhs, cymbalta 30 mg BID, buspar 10 mg TID and hydroxyzin e 25 mg q 6 hrs prn.Psych involved. Essential hypertension 93696830 I10 BP in good control.Co ntinue lisinopril 20 mg qd, clonidine 0.2 mg BID and doxazosin 1 mg qdMonitor BP and labs. Seizure disorder 7872689 02 G40.802 No recent seizure activity. Continue keppra 1000 mg BID. Monitor for seizure as activity. [id number] Kristi Hernandez [facility] on [address] [place] [address] [id number] 3 04/06/2020 12:13:46 04/08/2020 11:49:58 Diabetes mellitus 85922388 E11.9 Metformin 1000 mg BIDLantus 25 units QHSAdd Trulicity 0.75 mg Qweekly continue humalog sliding scalemonit or accuchecks TID [id number] Kristi Hernandez [facility] on [address] [place] [address] [id number] 3 04/08/2020 13:41:20 04/11/2020 16:13:48 Anxiety 12549555 F41.1 D/c buspar, remeron as feels these are ineffectiv eWill add clonazepam 0.5 mg QPMCont cymbalta and clonidineM onitor for effect Insomnia 434343754 G47.0 9 Add melatonin 5 mg QHSMonitor [id number] Cindy Mireles [facility] on [address] [place] [address] [id number] 3 05/12/2020 09:29:01 05/16/2020 15:19:23 Anxiety 11642462 F41.1 appears stable at this timecontin ue clonazepam 0.5 mg QPM- as started on 04/08Contin ues on cymbalta and clonidineM onitor for effect Diabetes mellitus 277975 09 E11.9 Metformin 1000 mg BIDLantus 25 units QHSTrulici ty 0.75 mg Qweekly humalog sliding scalemonit or accuchecks TID Neuropathy 796042090 G62 .89 With continued pain into right [...] pain control Hemiplegia and/or hemiparesis following stroke 4918243948 9107 I69.151 with neuropathi c pain as above. Continue Supportive care Chronic pain syndrome 37 5796475 G89.4 tramadol 25mg bidgabapen tin 900mg bid and 1200qhscyc lobenzapri ne 20 mg qhs and 10 mg bidpt also on ropinerole 0.5mg qhs for restless legsMonito r pain sxs. Essential hypertension 54189723 I10 stablelisi nopril 20 mg qdclonidin e 0.2 mg BIDdoxazos in 1 mg qdMonitor BP and labs. Insomnia 909495376 G47.0 9 trazodone 50mg qhs monitor for effect [id number] Cindy Mireles [facility] on [address] [place] [address] 05/19/2020 11:54:46 05/23/2020 16:16:27 Neuropathy 418159945 G62.89 With continued pain into right leg [...] as aboveMonit or for pain control Anxiety 31486017 F41.1 stable at this timeclonaz epam 0.5 mg QPM- as started on 04/08cymbal ta and clonidineM onitor for effect Chronic pain syndrome 37 7961549 G89.4 tramadol 25mg bidgabapen tin 900mg bid and 1200qhscyc lobenzapri ne 20 mg qhs and 10 mg bidropiner ole 0.5mg qhs for restless legsMonito r pain sxs. Diabetes mellitus 297765 09 E11.9 Metformin 1000 mg BIDLantus 25 units QHSTrulici ty 0.75 mg Qweekly humalog sliding scalemonit or accuchecks TID Essential hypertension 73639103 I10 stablelisi nopril 20 mg qdclonidin e 0.2 mg BIDdoxazos in 1 mg qdMonitor BP and labs. Morbid obesity 414679477 E66.01 discussion with pt today about weight being a factor in her chronic pain/neuro misty and would benefit greatly from weight loss- she plans to walk the hallways more.encou rage weight lossdietar y eval prn [id number] Kristi Mary [facility] on [address] [place] [address] [id number] 3 05/25/2020 14:00:25 05/27/2020 14:19:01 Diabetes mellitus 01678621 E11.9 HbA1c remains above goalIncrea se Trulicity 1.5 mg QweeklyCon tMetformin 1000 mg BIDLantus 25 units QHScontinu e humalog sliding scalemonit or accuchecks TID [id number] Linda Vazquez MD [facility] on [address] [place] [address] 25032-847 3 07/13/2020 07:12:00 07/19/2020 15:35:48 Chronic pain syndrome 740861004 G89.4 cyclobenza lalo 20 mg at hs and 10 mg bidtramado l 25 mg q12h prnduloxet ine 30 mg bidgabapen tin 900 mg bid and 1200 mg at hswill monitor Diabetes mellitus 446262 09 E13.42 Trulicity 1.5 mg weekly SCLantus 25U at hs will monitor Essential hypertension 88012614 I10 doxazosin 1 mg dailycloni dine 0.2 mg bidlisinop ril 20 mg dailywill monitor SARS-CoV-2 936501413 U07 .1 diagnosed 11/11/19rec overed Mixed anxi ety and depressive disorder 654443278 F41.8 clonazepam 0.5 mg dailytrazo done 50 mg at hsduloxeti ne 30 mg bidhydroxy zine 25 mg q6h prnwill monitorMed Options prn Seizure disorder 7319704 02 G40.909 levetirace munoz 1000 mg bidwill monitor [id number] Kristi Hernandez [facility] on [address] [place] [address] [id number] 3 07/25/2020 13:05:51 07/29/2020 09:55:07 Hordeolum externum of upper eyelid of left eye 2584160362 50226 H00.014 With concern for possible cellulitis Start Keflex 500 mg PO, q 6 hrs for 7 days.Cultu relle BID for 10 days.D/C erythromyc in.Polytri m 1 gtt to left eye daily for 7 days.Warm compresses to eye TIDMonitor closely [id number] [facility] [address] [place] [address] 75787-449 3 08/05/2020 11:06:21 08/08/2020 15:13:54 Insomnia 914470989 G47.09 Increase trazodone 75 mg QHSMonitor for effect [id number] Kristi [facility] on [address] [place] [address] [phone] 3 08/08/2020 12:03:49 08/10/2020 13:44:13 Diabetes mellitus 25702358 E11.9 Blood sugars appear improvedTr ulicity 1.5 mg Qweekly Metformin 1000 mg BID Lantus 25 units QHSHumalog sliding scale TIDmonitor accuchecks Repeat HbA1c in Feb Hemiplegia and/or hemiparesis following stroke 0534331577 9107 I69.151 Ambulates with walker Encouraged to increase physical activity as tolerated Supportive care Chronic pain syndrome 37 3774907 G89.4 Cymbalta 30 mg BIDMonitor for pain control Insomnia 998725738 G47.0 9 D/c trazodone as is ineffectiv eCurrently has klonopin scheduled in afternoon- will change to bedtimeMon itorConsid er d/c klonopin and start ambien if insomnia not improving Schizoaffe ctive disorder, mixed type 222458504 F25.0 Mood good.Muriel nue remeron 7.5 mg qhs, cymbalta 30 mg BID, buspar 10 mg TID and hydroxyzin e 25 mg q 6 hrs prn.Psych involved. Essential hypertension 28648311 I10 BP in good control.Co ntinue lisinopril 20 mg qd, clonidine 0.2 mg BID and doxazosin 1 mg qdMonitor BP and labs. Seizure disorder 4272326 02 G40.802 No recent seizure activity. Continue keppra 1000 mg BID. Monitor for seizure as activity. [id number] BIMAL NGUYEN [facility] on [address] [place] [address] [id number] 3 08/12/2020 12:30:44 08/15/2020 16:37:05 Hemiplegia and/or hemiparesis following stroke 1215797694 9107 I69.151 Ambulates with walker Encouraged to increase physical activity as tolerated Supportive care Chronic pain syndrome 37 1196987 G89.4 Cymbalta 30 mg BIDtramado l 25 mg BID PRNadd ibuprofen 600 mg qhs and BID PRNconside r increase in tramadol if not effectiveM onitor for pain control [id number] Kristi Hernandez [facility] on [address] [place] [address] [id number] 3 08/15/2020 14:44:34 08/17/2020 12:10:36 Broken tooth without complication 94624254 S02.5XXA Left bottom central incisor with significan t decay/appe ars brokenRequ est dental consultAdd orajel PRN for tooth painMonito r [id number] Kristi Hernandez [facility] on [address] [place] [address] [id number] 3 08/24/2020 09:43:08 08/26/2020 09:06:58 Essential hypertension 21207440 I10 BP often elevatedIn crease lisinopril 40 mg dailyCloni dine 0.2 mg BIDDoxazos in 1 mg qd Monitor BP and labs. Insomnia 834974870 G47.0 9 Will add ambien 5 mg QHS prnMonitor for effect [id number] Kristi Hernandez [facility] on [address] [place] [address] [id number] 3 08/31/2020 14:38:05 09/01/2020 16:21:10 Asthma 116214193 J45.40 Albuterol inhaler PRNAdd Flovent HFA BIDMonitor resp status [id number] Kristi Hernandez [facility] on [address] [place] [address] [id number] 3 09/09/2020 13:14:26 09/12/2020 13:28:51 Diabetes mellitus 23415449 E11.9 Blood sugars now elevated, HbA1c improved but not yet at goalGoal HbA1c <8.0Increa se Lantus 35 units QHSContTru licity 1.5 mg Qweekly Metformin 1000 mg BID Humalog sliding scale TID monitor accuchecks Repeat HbA1c as ordered Hemiplegia and/or hemiparesis following stroke 7868900339 9107 I69.151 Ambulates with walker Encouraged to increase physical activity as tolerated Supportive care Chronic pain syndrome 37 9088518 G89.4 Cymbalta 30 mg BIDMonitor for pain control Schizoaffe ctive disorder, mixed type 141278645 F25.0 Mood good.Muriel nue remeron 7.5 mg qhs, cymbalta 30 mg BID, buspar 10 mg TID and hydroxyzin e 25 mg q 6 hrs prn.Psych involved. Essential hypertension 52777871 I10 BP in good control.Co ntinue lisinopril 20 mg qd, clonidine 0.2 mg BID and doxazosin 1 mg qdMonitor BP and labs. Seizure disorder 8123611 02 G40.802 No recent seizure activity. Continue keppra 1000 mg BID. Monitor for seizure as activity. Bacterial vaginosis 4197 05670 N76.0 Treat with MetroGel 0.75% QHS x 5 daysMonito r to resolution Refer to TYPE CASTING MACHINE OPERATOR as patient likely needs routine gynecologi arina care/PAP smear [id number] Kristi Hernandez [facility] on [address] [place] [address] 09/20/2020 09:42:48 09/21/2020 16:25:13 Cough 16733307 R05 Add Mucinex 400 mg BID x 5 daysEncour age fluidsMoni tor and if worsening or other sxs develop consider CXR [id number] Moraima Hanson MD [facility] on [address] [place] [address] 10/28/2020 19:36:53 11/08/2020 14:55:28 Diabetes mellitus 60830661 E11.9 HgA1C much improved since starting trulicity in 05/2020, but still >8.0, So Lantus increased on 09/10/20. Continue Lantus 35 units QHS,, Trulicity 1.5 mg weekly, metformin 1000 mg BID and SSI. Monitor accuchecks TID and HgA1C q 3 months. Hemiplegia and/or hemiparesis following stroke 3776850693 9107 I69.151 Mostly in wheelchair . Continue to encourage increased physical activity as tolerated Supportive care Chronic pain syndrome 37 6860002 G89.4 As above. Schizoaffe ctive disorder, mixed type 717518009 F25.0 Mood good. Continue meds as above. Psych involved. Essential hypertension 30725130 I10 BP in good control. Continue lisinopril 40 mg qd, clonidine 0.2 mg BID and doxazosin 1 mg qd Monitor BP and labs. Seizure disorder 2315499 02 G40.802 No recent seizure activity. Continue keppra 1000 mg BID. Monitor for seizure as activity. Neuropathy 985823784 G62 .89 C/O continued pain into right leg and foot. Will increase gabapentin from 900 mg BID and 1200 qhs to 1200 mg TID. Monitor for sx relief or oversedati on. Continue tramadol 25 mg BID prn and duloxetine 30 mg BID Monitor for pain control Liver enzy mes level above reference range 321286022 R74.8 Almost WNL on 03/21 Hepatitis panel neg. Likely fatty liver. Not rechecked since 02/2020 Will recheck on 10/31 and consider GI consult if still elevated. Insomnia 806424958 G47.0 9 Continue melatonin 5 mg qhs and ambien 5 mg qhs. Monitor sleep patterns. SARS-CoV-2 151699545 U07 .1 recovered Monitor for sequelae. Restless legs 87496556 G 25.81 Continue ropinirole 0.5 mg qhs. [id number] Kristi Hernandez [facility] on [address] [place] [address] [id number] 3 11/07/2020 12:49:40 11/09/2020 09:05:40 Gastroesophageal reflux disease without esophagitis 114745353 K21.9 Add Prilosec 20 mg daily D/c ibuprofen as this can exacerbate sxs Tums PRN Monitor sxs Essential hypertension 94522309 I10 BP elevated above goal Lisinopril 40 mg daily Increase Doxazosin 2 mg daily Clonidine 0.2 mg BID Monitor [id number] Kristi Hernandez [facility] on [address] [place] [address] 00896-052 3 11/16/2020 11:27:49 11/18/2020 11:03:47 Allergic rhinitis 81091494 J30.9 Add Claritin 10 mg daily x 4 weeks Monitor for effect Seasonal a llergic conjunctivitis 805108447 H10.13 Add Zaditor gtts BID x 4 weeks Monitor [id number] Kristi Hernandez [facility] on [address] [place] [address] 54025-343 3 12/01/2020 15:53:59 12/06/2020 09:44:26 Generalized anxiety disorder 84342647 F41.1 Duloxetine 30 mg BID Klonopin 0.5 mg QHS Request psych eval [id number] CALEB PERKINS NP [facility] on [address] [place] [address] [id number] 3 12/27/2020 14:35:54 12/30/2020 13:11:57 Hemiplegia and/or hemiparesis following stroke 5215555872 9107 I69.359 mostly in wheelchair encourage increased physical activity Seizure disorder 9676839 02 G40.909 keppra 1000mg bid Schizoaffe ctive disorder, mixed type 981600890 F25.0 mood stable continue to monitor and chart any changes in mood or behaviors psych prn Restless legs 76885039 G 25.81 ropinole 0.5 mg daily mag ox 400 mg daily Neuropathy 516191595 G62 .9 gabapentin 1200 mg tid Insomnia 611796407 G47.0 0 ambien 5mg daily Generalize d anxiety disorder 02306227 F41.1 klonopin 0.5 mg daily cymbalta 30 mg bid Essential hypertension 60241659 I10 clonidine 0.2 mg bid lisinopril 40 mg daily doxazosin 2 mg daily monitor bp Diabetes mellitus 756539 09 E11.9 trulicity 1.5 mg daily metformin 1000mg bid monitor glucose Chronic pain syndrome 37 0619166 G89.4 tramadol 25 mg q12hr prn gabapentin 1200 mg tid cyclobenza lalo 10 mg bid, 20 mg hs Asthma 389813245 J45.90 9 flovent bid [id number] BIMAL NGUYEN [facility] on [address] [place] [address] 54250-243 3 02/02/2021 14:57:56 02/07/2021 15:57:17 Impacted cerumen in left ear 5083447497 423861 H61.22 add debrox 5 gtts qhs and flush with warm NS on 6th daymonitor for relief [id number] Kristi Hernandez [facility] on [address] [place] [address] 30010-429 3 02/15/2021 10:06:45 02/17/2021 15:34:14 Acute otitis externa 85175873 H60.591 Cipro HC Otic 3 gtts to R ear BID x 7 daysAdvise d patient to avoid inserting any foreign objects into ear including Q-tipsMoni tor to resolution [id number] EM NAIR PA-C [facility] on [address] [place] [address] 94692-238 3 02/16/2021 20:59:13 02/21/2021 03:48:12 Peripheral neuropathy due to type 2 diabetes mellitus 6337455694 107 E11.42 No renal impairment or hyperkalem ia on NATALI-Amirah changes neededCons ider reduction in frequency of lab monitoring [id number] Linda Vazquez MD [facility] on [address] [place] [address] 45275-170 3 02/20/2021 06:49:32 02/22/2021 11:44:42 Asthma 984196500 J45.30 flovent 44: 2 puffs bidwill monitor Chronic pain syndrome 37 2105499 G89.4 tramadol 25 mg q12h prnduloxet ine 30 mg bid and 60 mg at hsgabapent in 1200 mg tidibuprof en 400 mg q12h prncyclobe nzaprine 10 mg bid and 20 mg at hswill monitor Diabetes mellitus 673541 09 E13.42 Trulicity 1.5 mg weekly SCLantus 35U at hsmetformi n 1000 mg bidwill monitor Essential hypertension 91515342 I10 doxazosin 1 mg dailycloni dine 0.2 mg bidlisinop ril 20 mg dailywill monitor SARS-CoV-2 173449623 U07 .1 diagnosed 11/11/19rec overedwill continue to monitor Seizure disorder 0173647 02 G40.909 levetirace munoz 1000 mg bidwill monitor Mixed anxi ety and depressive disorder 283899051 F41.8 clonazepam 0.5 mg daily at hsduloxeti ne 30 mg bid and 60 mg at hsgabapent in 1200 mg tidclonidi ne 0.2 mg bidwill monitorpsy ch prn Primary insomnia 7937472 F51.01 zolpidem 5 mg at hs prnwill monitor Restless legs 89352926 G 25.81 ropinirole 0.5 mg at hswill monitor [id number] Kristi Ames [facility] on [address] [place] [address] 00635-452 3 02/21/2021 13:57:17 02/24/2021 13:55:38 Diabetes mellitus 32467715 E13.42 HbA1c improved but not yet at goalGoal HbA1c <8.0Add Lantus 8 units QAM, cont 35 units QHSAdjust Humalog sliding scale, coverage to start at BS 150 (currently starts at BS 200)Trulic ity 1.5 mg QweeklyMet formin 1000 mg BIDmonitor accuchecks Repeat HbA1c as ordered [id number] Kristi Hernandez [facility] on [address] [place] [address] 15800-880 3 02/22/2021 14:12:57 02/24/2021 14:05:11 Morbid obesity 104419613 E66.01 Discussed with patient-wi ll replace 1 meal (she prefers dinner) with protein shake-daniel ent to supply kitchen with powder to prepare as she is unable to have traffic technician in roomMonito r weights [id number] Kristi Hernandez [facility] on [address] [place] [address] 71416-107 3 02/28/2021 10:01:05 03/07/2021 16:10:20 Insomnia 043982308 G47.09 Increase ambien 10 mg QHSWill change admin time of Clonazepam to 2 PM to reduce risk of interactio n with AmbienMoni tor for effect [id number] Shaylee Lowry RANCH HELPER [facility] on [address] [place] [address] 89734-728 3 03/13/2021 11:17:03 03/15/2021 14:31:48 Right sided chest pain 594509375 R07.89 doesn't appear have an infectionp ain only when sitting up and pt is morbidly obese with abd rollsarea of concern slightly edematousw ill have staff monitoradd lidocaine gel apply qd to abd roll prn pain [id number] Kristi Hernandez [facility] on [address] [place] [address] 84261-342 3 04/10/2021 15:36:41 04/12/2021 11:23:43 Acute otitis externa 94681541 H60.591 CiproDex otic 4 gtts to L ear BID x 7 daysAdvise d patient to avoid inserting any foreign objects into ear including Q-tipsMoni tor to resolution [id number] BIMAL NGUYEN [facility] on [address] [place] [address] 05115-476 3 04/21/2021 12:12:19 04/25/2021 09:47:12 Acute otitis externa 39114141 H60.591 repeat CiproDex otic 4 gtts to L ear BID x 7 daysAdvise d patient to avoid inserting any foreign objects into ear including Q-tipsfind otoscope to reassess Insomnia 699631023 G47.0 9 continue ambien 10 mg QHSClonaze guicho 2 PMMonitor for effect Morbid obesity 161424938 E66.01 monitor weightsmea l replacemen t shake one meal a day Diabetes mellitus 411354 09 E13.42 HbA1c improved but not yet at goalGoal HbA1c <8.0increa se Lantus to 10 units QAM, cont 35 units QHSHumalog sliding scale, coverage to start at BS 150 (currently starts at BS 200)Trulic ity 1.5 mg QweeklyMet formin 1000 mg BIDmonitor accuchecks Repeat HbA1c as ordered Asthma 885676917 J45.30 flovent 44: 2 puffs bidwill monitor Chronic pain syndrome 37 1053001 G89.4 tramadol 25 mg q12h prnduloxet ine 30 mg bid and 60 mg at hsgabapent in 1200 mg tidibuprof en 400 mg q12h prncyclobe nzaprine 10 mg bid and 20 mg at hswill monitor Essential hypertension 74541390 I10 doxazosin 1 mg dailycloni dine 0.2 mg bidlisinop ril 20 mg dailywill monitor SARS-CoV-2 360412850 U07 .1 diagnosed 11/11/19rec overedwill continue to monitor Seizure disorder 4121887 02 G40.909 levetirace munoz 1000 mg bidwill monitor levels Mixed anxi ety and depressive disorder 824571938 F41.8 clonazepam 0.5 mg daily at hsduloxeti ne 30 mg bid and 60 mg at hsgabapent in 1200 mg tidclonidi ne 0.2 mg bidwill monitorpsy ch prn Primary insomnia 2885850 F51.01 zolpidem 5 mg at hs prnwill monitor Restless legs 20978424 G 25.81 ropinirole 0.5 mg at hswill monitor [id number] EM NAIR PA-C [facility] on [address] [place] [address] 39822-898 3 04/26/2021 11:34:17 04/28/2021 11:23:08 Peripheral neuropathy due to type 2 diabetes mellitus 2163383745 107 E11.42 Lantus 10 ux SQ q am and 35 ux SQ qhsTrulici ty 1.5 mg SQ q SaturdayMetf ormin 1 g po bidCorrect ional HumalogOn NATALI-I for renal protection Gastroesop hageal reflux disease without esophagitis 016628226 K21.9 Prilosec 20 mg po q am Restless legs 47123643 G 25.81 Requip 0.5 mg po qhs Health Concerns Section Related Observation LastModified by Organization Detai ls LastModified Time None Recorded Concern Status LastModified by Organization Details LastModified Time None Recorded Advance Directives Directive Y: Full code Payers Encounter Date Sequence Insurance Name Policy Number Policy Salguero Covered Member ID Salguero Member ID Guarantor Name 02/28/2021 1 [place] Yesika Farr [id number] Yesika Farr 03/13/2021 1 [place]ika Farr [id number] Yesika Farr 04/10/2021 1 [place] Yesika Farr [id number] Yesika Farr 04/21/2021 1 [place] Yesika Farr [id number] Yesika Farr 04/26/2021 1 [place] Yesika Farr [id number] Yesika Farr Notes Date Note Type Note Provider Name and Address Organization Details Recorded Time 02/28/2021 text/html 45 yo female LTC resident seen for acute rounding. Patient reports difficulty sleeping despite receiving Ambien at bedtime. Also receives scheduled Clonazepam in evening currently. Kristi chavez [facility] 02/28/2021 10:06:20 03/13/2021 text/html pt seen today fo r acute rounding. pt is c/o pain on her left abd roll under her left breast. has no pain in left breast. pt says it doesn't bother her at all when she is lying down in bed. just when she is sitting up. otherwise no concerns per nursing. Shaylee Lowry, RANCH HELPER [address], [address], [place], [address], [facility] 03/13/2021 11:29:20 04/10/2021 text/html 45 yo female LTC resident seen for acute rounding. Patient c/o pain of L ear. Reports recently cleaning ear with Q-tip. 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 MOLST: full code BIMAL NGUYEN [address] [facility], [address], [place], [address], [facility] [employer] 04/21/2021 12:29:56 04/26/2021 text/html Pt seen today [...] externa; Hypomagnesemia; Xeropthalmia Hospital Patient Received From: [facility] Attending MD: Dr. Jose A Lassiter [...] diabetes meds adjusted. Participated and progressed in PT/OT/STOGY ROLLER (see their discharge summary for details.) Acute issues managed. Discharging today under MFA waiver program to her own apartment. Home Health Certification: Dx as above; Seen this am by [facility]-registered Em Nair PA-C NPI# [id number]; Last MD visit 02/20/21; senior living for medication management and reconciliation and teaching, [...] per PCP discretion Services Ordered at Discharge: [facility] Diet: allergic to tomato; carb controlled; regular texture; thin liquids Activity: w/c and 2 wheeled walker as tolerated Pt says, I'm movin' on up (sung like the Florian's theme song.) No complaints. Very excited to be going to her own apartment. Nurse reports pt has been demonstrating competent management of her diabetes/insulin. EM NAIR PA-C [address] [facility], [address], [place], [address], [employer] [facility] [employer] 04/26/2021 22:00:55 OBGyn Episode No OBEpisode recorded.
--- OUTSIDE RECORDS SUMMARY | 2024-11-16 19:16 | XMS_ITS | Clinical Summary ---
Author Organization [employer] [facility] it Address [address] [place] [address] Care Team Providers Care Contact Lens Cutter Name Role Phone Cathy Gerber NP Primary Care Provider [phone] Social History Tobacco Use Types Packs/Day Years [...] Influencers of Health Screening 02/11/2024 COVID-19 Vaccine (2023-2 5 season) 2024 Diabetes: Annual Urine Albumin-Creatinine [...] age to complete this topic Meningococcal B Vaccine Aged Out No l onger eligible based on patient's age to complete this topic RSV Immunization Patients Un chelsea 20 months Aged Out No longer eligible b ased on patient's age to complete this topic Varicella Vaccines Aged Out No longer eligible based on patient's age to complete this topic Care Teams Contact Lens Cutter Relationship Specialty Start Date End Date Cathy Gerber NP [address] [place] [phone] PCP - General 09/19/23
--- OUTSIDE RECORDS SUMMARY | 2024-11-16 19:16 | XMS_ITS | Encounter Summary ---
Author Organization [employer] Address [address] [facility] 7t [place] [address] Care Team Providers Care Export Clerk Name Role Phone Cathy Gerber Primary Care Provider [phone] Reason for Visit * Reason Onset Date Comments Prior Authorization 10/07/2023 Encounter Details Date Type Department Care Team ([facility] st Contact Info) Description 10/07/2023 Telephone [facility] [address] [place], [place] [phone] Cathy Gerber ANP [address] [place] [address] Prior Authorization Social History Tobacco Use Types [...] Audra Vasquez - 10/16/2023 1:55 PM EDT MANAGER ART SPOKE WITH PATIENT NOTIFIED SHE WAS 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, ADVICE TO CALL [...] Description 11/20/2024 3:30 PM EDT Medication Management [facility] [address] [place] [address] Kimberly Betancourt, YinD [address] [place] [address] 12/31/2024 2:30 PM EDT Office Visit [facility] [address] [place] [address] Cathy Gerber ANP [address] [place] [address] documented as of this encounter Visit Diagnoses Not on filedocumented in this encounter Additional Health Concerns Assessment Noted Time PHQ-9 Depression Total Score: 0 09/12/19 24 10:17 AM EST documented as of this encounter Care Teams Export Clerk Relationship Specialty Start Date End Date Cathy Gerber ANP [address] [place] [phone] PCP - General Family Medicine 06/28/22 documented as of this encounter
--- OUTSIDE RECORDS SUMMARY | 2024-11-16 19:16 | XMS_ITS | Encounter Summary ---
Author Organization [employer] Address [address] [facility] 7t [place] [address] Care Team Providers Care Stock Worker Name Role Phone Cathy Gerber Primary Care Provider Reason for Visit * Reason Comments Med Refill Encounter Details Date Type Department Care Team ([facility] st Contact Info) Description 09/19/2023 Refill [facility] [address] [place], [place] [phone] Cathy Gerber ANP [address] [place] [address] Seizure disorder (CMS/HCC) Social History Tobacco Use [...] Description 11/20/2024 3:30 PM EDT Medication Management [address] [phone] Kimberly Betancourt, PharmD [address] [place] [address] 12/31/2024 2:30 PM EDT Office Visit [address] [address] Cathy Gerber ANP [address] [place] [address] documented as of this encounter Visit Diagnoses Diagnosis Seizure disorder (CMS/HCC) Unspecified epilepsy without mention of intractable epilepsy documented in this encounter Additional Health Concerns Assessment Noted Time PHQ-9 Depression Total Score: 0 09/12/19 24 10:17 AM EST documented as of this encounter Care Teams Stock Worker Relationship Specialty Start Date End Date Cathy Gerber ANP [address] [place] [phone] PCP - General Family Medicine 06/28/22 documented as of this encounter
--- OUTSIDE RECORDS SUMMARY | 2024-11-16 19:16 | XMS_ITS | Encounter Summary ---
Author Organization [employer] [facility] Address [address] [place] [address] 7t [place] [address] Care Team Providers Care Tool And Die Engineer Name Role Phone Cathy Gerber Primary Care Provider [phone] Reason for Visit * Reason Comments Med Refill Encounter Details Date Type Department Care Team (Late Contact Info) Description 11/23/2022 Refill [facility] [address] [place], [place] [phone] Cathy Gerber ANP [address] [place], [place] [phone] Chronic pain syndrome Social History Tobacco Use [...] Description 11/20/2024 3:30 PM EDT Medication Management [facility] [address] [place] [address] Kimberly Betancourt PharmD [address] [place], [place] [phone] 12/31/2024 2:30 PM EDT Office Visit [facility] [address] [place] [address] Cathy Gerber ANP [address] [place] [address] documented as of this encounter Visit Diagnoses Diagnosis Chronic pain syndrome documented in this encounter Care Teams Tool And Die Engineer Relationship Specialty Start Date End Date Cathy Gerber ANP [address] [place] [address] PCP - General Family Medicine 06/28/22 documented as of this encounter
--- OUTSIDE RECORDS SUMMARY | 2024-11-16 19:16 | XMS_ITS | Encounter Summary ---
Author Organization [employer] Address [address] [facility] 7t [place] [address] Care Team Providers Care Smoke Inspector Name Role Phone Cathy Gerber MICHAEL Primary Care Provider [phone] Reason for Visit * Reason Comments Med Refill Encounter Details Date Type Department Care Team ([facility] st Contact Info) Description 07/08/2024 Refill [facility] [address] [place] [address] Sudhakar Bustillos, IRWIN [address] [place] [address] Social History Tobacco Use Types Packs/Day Years [...] Description 11/20/2024 3:30 PM EDT Medication Management [facility] [address] [place] [phone] Kimberly Betancourt, PharmD [address] [place] [address] 12/31/2024 2:30 PM EDT Office Visit [facility] [address] [place] [phone] Cathy Gerber, ANP [address] [place] [address] documented as of this encounter Visit Diagnoses Not on filedocumented in this encounter Additional Health Concerns Assessment Noted Time PHQ-9 Depression Total Score: 0 09/12/19 10:17 AM EST documented as of this encounter Care Teams Smoke Inspector Relationship Specialty Start Date End Date Cathy Gerber ANP [address] [place] [address] PCP - General Family Medicine 06/28/22 documented as of this encounter
[2024-11-16 19:26] VITALS: BP 146/80; PULSE 96; RESP 18; TEMP 37.4; O2SAT 100
--- NOTE | 2024-11-16 19:55 | PC.NURSE ---
attempted to discharge pt. pt requires transportation home as she belongs to the [facility] in [place]- Pt attempted to locate an alternative mode of transport home but was unsuccessful. ED insulation worker apprentice notified- [facility] transport to be scheduled
[2024-11-16 20:19] VITALS: BP 116/62; PULSE 93; RESP 17; TEMP 37.1; O2SAT 97
[2024-11-16] MEDS: Acetaminophen 325 MG TABLET 650 MG PO (21:42)
--- NOTE | 2024-11-16 21:51 | PC.NURSE ---
this rn assumed care of pt from front main pt medicated for CHEN pt awaiting transport home
--- NOTE | 2024-11-16 22:53 | MHC.EDTECH ---
Patient used wheelchair to go to bathroom
[2024-11-16 23:13] VITALS: BP 126/60; PULSE 92; RESP 18; TEMP 36.9; O2SAT 96
[2024-11-16 23:42] VITALS: BP 126/60; PULSE 92; RESP 18; TEMP 36.9; O2SAT 96
== END 2024-11-16 23:43 | disposition home or self-care (01) ==
PROVIDERS: Emergency Provider Emergency Medicine; PCP Nurse Practitioner Primary Care
DX: J06.9 Acute upper respiratory infection, unspecified (principal); H61.23 Impacted cerumen, bilateral; R07.89 Other chest pain; J02.9 Acute pharyngitis, unspecified; R05.9 Cough, unspecified; R09.89 Other specified symptoms and signs involving the circulatory and respiratory systems; H92.03 Otalgia, bilateral; E11.9 Type 2 diabetes mellitus without complications; Z03.818 Encounter for observation for suspected exposure to other biological agents ruled out; Z79.899 Other long term (current) drug therapy; Z79.4 Long term (current) use of insulin; Z87.891 Personal history of nicotine dependence
CPT/HCPCS: 0241U; 87651; 99283; 99285

== ENCOUNTER 2025-03-29 14:31 | Emergency (ER) | payer MEDICAID, SELFPAY ==
--- NOTE | 2025-03-29 | ECG_ITS ---
Test Reason : SEIZURE Blood Pressure : */* mmHG Vent. Rate : 67 BPM Atrial Rate : 67 BPM P-R Int : 186 ms QRS Dur : 90 ms QT Int : 402 ms P-R-T Axes : 27 28 30 degrees QTcB Int : 424 ms Normal sinus rhythm Normal ECG When compared with ECG of 13-Apr-2024 14:25, Vent. rate has decreased by 35 bpm Referred By: Generic ED Physician Electronically Signed By: NIGHAT COLEMAN MD
[2025-03-29 14:45] VITALS: BP 117/63; BP 151/85; PULSE 72; PULSE 73; RESP 16; TEMP 37.1; O2SAT 97; O2SAT 98; BMI 40.1
[2025-03-29 15:29] LABS: MANUAL DIFF FLAG NO
[2025-03-29 15:33] LABS: Hematocrit 40.0 % (37.0-47.0); Hemoglobin 13.4 g/dl (12.0-16.0); Imm Gran Abs Auto 0.03 X10*3/uL (0.00-0.03); Imm Gran Pct Auto 0.3 % (0.0-0.4); Lymphocytes Absolute Auto 2.6 X10*3/uL (1.2-4.9); Mean Corpuscular HGB Conc 33.5 g/dl (31.0-35.0); Mean Corpuscular Hemoglobin 27.7 pg (27.0-33.0); Mean Corpuscular Volume 82.6 fL (80.0-98.0); NRBC Abs Auto 0.000 X10*3/uL (0.0-0.012); NRBC Pct Auto 0.0 /100WBC (0.0-0.2); Platelet Count 276 X10*3/uL (160-400); Red Blood Count 4.84 X10*6/uL (4.20-5.50); White Blood Count 9.0 X10*3/uL (4.8-10.8)
[2025-03-29 15:47] LABS: Anion Gap 11 (12-20); Blood Urea Nitrogen 7 mg/dL (9-16); Calcium 8.7 mg/dL (8.4-10.2); Carbon Dioxide 27 mmol/L (22-29); Chloride 108 mmol/L (96-108); Creatinine Clr Calc Pharmacy 103.0; Estimated Glomerular Filt Rate > 60; Potassium 3.9 mmol/L (3.3-5.1); Sodium 142 mmol/L (135-145)
--- NOTE | 2025-03-29 16:30 | PC.NURSE ---
Lab contacted for add-on magnesium. Pt resting comfortably in bed, care ongoing.
[2025-03-29 16:42] LABS: Magnesium 1.8 mg/dL (1.6-2.6)
[2025-03-29 18:00] LABS: Appearance Urine Clear; Glucose Urine UA Negative (Negative); PH 8.0 (5.0-9.0); Specific Gravity - Urine 1.010 (1.005-1.025); UMIC TRIGGER UACC YES
[2025-03-29 18:13] VITALS: BP 132/82; PULSE 74; RESP 16; TEMP 36.6; O2SAT 96
--- NOTE | 2025-03-29 18:15 | ED.GENADULT ---
HPI - General Adult General Chief complaint: Seizure Stated complaint: seizure Time Seen by Provider: 03/29/25 16:07 Source: patient, RN notes reviewed and old records reviewed Mode of arrival: EMS Limitations: no limitations History of Present Illness ED Provider: Sydnie HPI narrative: 49-year-old female past medical history significant for seizure disorder, previous CVA, asthma, depression, GERD, diabetes, obesity presents for evaluation of a seizure. patient has had seizures for the last 6 years since she had a stroke. She takes Keppra 1200 mg twice daily she reports that she has not missed any doses of her Keppra including her morning dose today which she states she took she states that today her TECHNICAL ASST witnessed 2 seizures. Apparently 1 was an absence seizure lasting 2-3 minutes and the 2nd 1 was described as tonic-clonic lasting about 5 minutes EMS reported that the patient was not postictal when they arrived patient reports that she feels tired but otherwise well. She is not fall and has no pain. She reports having 2 or 3 seizures approximately every other day for the last month she follows with urology at [facility] Related Data Home Medications ?Medication ?Instructions ?Recorded ?Confirmed blood sugar diagnostic (FreeStyle #10 ea 11/01/21 04/17/22 Lite Strips) blood-glucose meter (FreeStyle #1 ea 11/01/21 04/17/22 [place] Lite kit) clonidine HCl 0.2 mg tablet 0.2 mg PO BID 11/01/21 10/22/23 duloxetine 30 mg capsule,delayed 30 mg PO DAILY 11/01/21 10/22/23 release folic acid 1 mg tablet 1 mg PO DAILY 11/01/21 10/22/23 lisinopril 40 mg tablet 40 mg PO DAILY 11/01/21 10/22/23 magnesium oxide 400 mg (241.3 mg 400 mg PO BID 11/01/21 10/22/23 magnesium) tablet metformin 1,000 mg tablet 1,000 mg PO BIDWM 11/01/21 10/22/23 omeprazole 20 mg capsule,delayed 20 mg PO DAILY@0630 11/01/21 10/22/23 release pen needle, diabetic 31 gauge x #50 ea 11/01/21 04/17/2210/04 (Sure Comfort Pen Needle) thiamine HCl (vitamin B1) 100 mg 100 mg PO DAILY 11/01/21 10/22/23 tablet cyclobenzaprine 10 mg tablet 1 tab PO BID PRN muscle spasm 04/02/22 10/22/23 insulin lispro 100 unit/mL See Protocol subcut TIDAC 04/02/22 10/22/23 subcutaneous pen albuterol sulfate 90 mcg/actuation 2 puff inhalation Q6H PRN wheezing 07/31/23 10/22/23 aerosol inhaler (Ventolin HFA) hydroxyzine HCl 25 mg tablet 25 mg PO BID PRN Anxiety 07/31/23 10/22/23 mirtazapine 7.5 mg tablet 7.5 mg PO BEDTIME PRN Insomnia 07/31/23 10/22/23 pregabalin 50 mg capsule 50 mg PO TID 07/31/23 10/22/23 doxepin 25 mg capsule 25 mg PO BEDTIME 10/22/23 10/22/23 dulaglutide 3 mg/0.5 mL 3 mg subcut TU 10/22/23 10/22/23 subcutaneous pen injector (Trulicity) duloxetine 60 mg capsule,delayed 60 mg PO DAILY 10/22/23 10/22/23 release escitalopram oxalate 5 mg/5 mL 20 mg PO QAM 10/22/23 10/22/23 oral solution insulin glargine 100 unit/mL (3 10 unit subcut BID 10/22/23 10/22/23 mL) subcutaneous pen melatonin 10 mg capsule 10 mg PO BEDTIME insomnia 10/22/23 10/22/23 Previous Rx's ?Medication ?Instructions ?Recorded aspirin 81 mg chewable tablet 81 mg PO DAILY #90 tabs 08/01/23 atorvastatin 40 mg tablet 40 mg PO BEDTIME #90 tabs 08/01/23 levetiracetam 1,000 mg tablet 1,500 mg (1.5 x 1,000 mg) PO 10/24/23 BID@0900,1700 #120 tabs morphine 15 mg immediate release 15 mg PO Q6H PRN pain #10 tabs 12/04/23 tablet ondansetron HCl 4 mg tablet 4 mg PO Q8H PRN nausea and 04/13/24 vomiting #14 tabs amoxicillin 875 mg-potassium 1 tab PO Q12H 5 days #10 tabs 04/14/24 clavulanate 125 mg tablet azithromycin 500 mg tablet See Rx Instructions PO .COMPLEX #6 04/14/24 tabs codeine 10 mg-guaifenesin 100 mg/5 10 ml PO Q6H PRN cough #237 mL 08/18/24 mL oral liquid prednisone 20 mg tablet 40 mg (2 x 20 mg) PO DAILY #10 tabs 08/18/24 carbamide peroxide 6.5 % ear drops 5 drp otic (ear) left Q12H 4 days 11/16/24 (Ear Drops (carbamide peroxide)) #15 mL ibuprofen 600 mg tablet 600 mg PO Q8H PRN fever or pain 11/16/24 #20 tabs Allergies Allergy/AdvReac Type Severity Reaction Status Date / Time tomato (TOMATO) Allergy Unknown RASH Verified 03/29/25 14:49 Review of Systems Constitutional: Constitutional: Denies body ache(s), Denies fever(s), Denies frequent falls and Denies headache(s) Eyes: Eyes: Denies blurry vision ENT: Denies vertigo and Denies headache(s) Cardiovascular: Cardiovascular: Denies chest pain and Denies dyspnea on exertion Respiratory: Respiratory: Denies cough and Denies dyspnea on exertion Gastrointestinal: Gastrointestinal: Denies abdominal pain, Denies nausea and Denies vomiting Musculoskeletal: Musculoskeletal: Denies back pain Neurologic: Denies vertigo, Denies frequent falls, Denies headache(s) and Reports seizure-like activity [facility] Past Medical History Medical History Transaminitis Cholecystitis, acute with cholelithiasis UTI (urinary tract infection) Asthma Restless leg syndrome Stroke GERD (gastroesophageal reflux disease) Anxiety Depression Insomnia Neuropathy Seizure Hypertension Insulin dependent type 2 diabetes mellitus Morbid obesity Hx of completed stroke Surgical History History of laparoscopic cholecystectomy (04/05/22) History of Family History Family History Mother Diabetes Father Diabetes Alcoholism Social History Social History Household Members: None Housing: Apartment Do you presently have visiting nurse or other home services: Yes (telehealth coordinator, vna) Alcohol intake: never Patient Tobacco Use Status: Former Tobacco user Tobacco use type: Cigarette Cigarette Packs Per Day: 2 Cigarettes Per Day: 40.0 Years Smoked: 14 Smoked in Last 30 Days: No Use of substances other than those prescribed or required for medical reasons: No Substance Use Type: Marijuana Advance Directives: Yes Advance Directives on File: Yes Advance Directives Date on File: 04/02/22 service: No Current occupational status: unemployed Physical Exam ED Vital Signs: Vital Signs - 24 hr 03/29/25 14:45 03/29/25 18:13 Temperature 98.7 F 97.8 F Pulse Rate 72 74 Respiratory Rate 16 16 Blood Pressure 117/63 132/82 Pulse Oximetry 98 96 Oxygen Delivery Method Room Air Room Air BMI result Body Mass Index 40.1 Const General: healthy appearing, comfortable, no acute distress, alert and awake Nutritional Appearance: well nourished Orientation/consciousness: patient oriented x3 HENMT Head: Yes normocephalic and Yes atraumatic Throat: Yes posterior oropharynx normal Eyes Eyelids: Yes eyelids normal Conjunctivae: conjunctivae normal Sclerae: sclerae normal Corneas: corneas normal Pupils: Equal, round and reactive pupils present EOM: EOMs intact bilaterally Neck Neck: Yes full ROM Resp Effort & Inspection: normal respiratory effort, able to speak in complete sentences and not labored GI Inspection: No distended Palpation (GI): Soft to palpation, not firm, nontender, no guarding and not rigid Skin General skin exam: no rashes or lesions noted and elasticity normal Neuro General: patient oriented x3 Cranial nerves: Yes CN's II-XII intact bilaterally, Yes Equal, round and reactive pupils present and Yes Bilaterally intact EOM present Cognition (Neuro): normal cognition Extrem Other: Moving all extremities well without any obvious deformities Medical Decision Making Lab Data MDM Lab Attestation statement: I reviewed the patient's lab results. no leukocytosis or anemia. Normal platelet count. No significant electrolyte abnormalities warranting intervention. 03/29/25 15:26 03/29/25 15:26 Labs: Lab Results 03/29/25 03/29/25 Range/Units 15:26 17:52 WBC 9.0 (4.8-10.8) X10*3/uL RBC 4.84 (4.20-5.50) X10*6/uL Hgb 13.4 (12.0-16.0) g/dl Hct 40.0 (37.0-47.0) % MCV 82.6 (80.0-98.0) fL MCH 27.7 (27.0-33.0) pg MCHC 33.5 (31.0-35.0) g/dl RDW 14.1 (11.0-16.0) % Plt Count 276 (160-400) X10*3/uL MPV 10.7 (9.4-12.3) fL Immature Gran % (Auto) 0.3 (0.0-0.4) % Neut % (Auto) 59.2 (45-73) % Lymph % (Auto) 29.4 (20-40) % [place] % (Auto) 6.7 (2-11) % Eos % (Auto) 3.5 (0-4) % Baso % (Auto) 0.9 (0-2) % Lymph # (Auto) 2.6 (1.2-4.9) X10*3/uL [place] # (Auto) 0.6 (0.1-1.2) X10*3/uL Eos # (Auto) 0.3 (0.0-0.4) X10*3/uL Baso # (Auto) 0.1 (0.0-0.2) X10*3/uL Abs Immat Gran (auto) 0.03 (0.00-0.03) X10*3/uL Absolute Neuts (auto) 5.3 (2.0-8.3) x10*3/uL Absolute Nucleated RBC 0.000 (0.0-0.012) X10*3/uL Nucleated RBC % (auto) 0.0 (0.0-0.2) /100WBC Sodium 142 (135-145) mmol/L Potassium 3.9 (3.3-5.1) mmol/L Chloride 108 (96-108) mmol/L Carbon Dioxide 27 (22-29) mmol/L Anion Gap 11 L (12-20) BUN 7 L (9-16) mg/dL Creatinine 0.66 (0.5-1.4) mg/dL Estim Creat Clear Calc 103.0 Estimated GFR > 60 Random Glucose 115 (60-115) mg/dL Calcium 8.7 (8.4-10.2) mg/dL Magnesium 1.8 (1.6-2.6) mg/dL Urine Color Yellow Urine Appearance Clear Urine pH 8.0 (5.0-9.0) Ur Specific [place] 1.010 (1.005-1.025) Urine Protein Negative (Neg-Trace) mg/dL Urine Glucose (UA) Negative (Negative) mg/dL Urine Ketones Negative (Negative) mg/dL Urine Blood Small (1+) H (Negative) Urine Nitrite Negative (Negative) Ur Leukocyte Esterase Negative (Negative) Urine RBC 0-2 (0-2) /HPF Urine WBC 0-5 (0-5) /HPF Ur Squamous Epith Cells 0-2 (0-2) /HPF Urine Bacteria 2+ (None Seen) Hyaline Casts 0-2 (0-2) /LPF Independent Interpretation I performed an independent interpretation of an: EKG and Plain X-Ray ( no focal infiltrates we will) Interpretation: normal sinus rhythm with a rate of [address] changes Radiology Impression Discussion of test interpretation with radiology: I have reviewed the radiologist's reading. Radiologist Impression: Findings: No consolidation or effusion. Normal size heart. No acute fracture. IMPRESSION: No consolidation. This document has been electronically signed by: Jose Angel Turpin MD on 08/18/2024 23:25:06 Discharge Plan Discharge Clinical Impression: Breakthrough seizure Patient Disposition: Home, Self-Care Instructions: Recurrent Seizures in Adults (ED) Additional Instructions: your workup in the ER today was reassuring. I recommend that you continue your medications as prescribed, but you should call your neurologist to see if they would like to make any adjustments due to your frequent breakthrough seizures. call tomorrow morning to schedule an appointment return for new or worsening symptoms Prescriptions: No Action cyclobenzaprine 10 mg tablet 1 tab PO BID PRN (Reason: muscle spasm) insulin lispro 100 unit/mL insulin pen See Protocol subcut TIDA Protocol: Insulin Correction Scale Less than or equal to 110 ---- Give (units): 0 111 to 150 Give (units): 0 151 to 200 Give (units): 2 201 to 250 Give (units): 4 251 to 300 Give (units): 6 301 to 350 Give (units): 8 Greater than 350 Give (units): 10 Call MD if Blood Glucose > : 350 hydroxyzine HCl 25 mg tablet 25 mg PO BID PRN (Reason: Anxiety) albuterol sulfate [Ventolin HFA] 90 mcg/actuation HFA aerosol inhaler 2 puff INHALATION Q6H PRN (Reason: wheezing) mirtazapine 7.5 mg tablet 7.5 mg PO BEDTIME PRN (Reason: Insomnia) pregabalin 50 mg capsule 50 mg PO TID atorvastatin 40 mg Tablet 40 mg PO BEDTIME Qty: 90 0RF aspirin 81 mg Tablet,Chewable 81 mg PO DAILY Qty: 90 0RF doxepin 25 mg capsule 25 mg PO BEDTIME escitalopram oxalate 5 mg/5 mL solution 20 mg PO QAM duloxetine 60 mg capsule,delayed release(DR/EC) 60 mg PO DAILY Trulicity 3 mg/0.5 mL pen injector 3 mg subcut TU insulin glargine 100 unit/mL (3 mL) insulin pen 10 unit SUBCUT BID melatonin 10 mg capsule 10 mg PO BEDTIME levetiracetam 1,000 mg tablet 1,500 mg PO BID@0900,1700 Qty: 120 0RF prednisone 20 mg tablet 40 mg PO DAILY Qty: 10 0RF codeine-guaifenesin 10-100 mg/5 mL liquid 10 ml PO Q6H PRN (Reason: cough) Qty: 237 0RF Ear Drops (carbamide peroxide) 6.5 % drops 5 drp otic (ear) left Q12H 4 Days Qty: 15 0RF ibuprofen 600 mg tablet 600 mg PO Q8H PRN (Reason: fever or pain) Qty: 20 0RF morphine 15 mg tablet 15 mg PO Q6H PRN (Reason: pain) Qty: 10 0RF Rx Instructions: partial fill okay; Partial Fill upon patient request. ondansetron HCl 4 mg tablet 4 mg PO Q8H PRN (Reason: nausea and vomiting) Qty: 14 0RF amoxicillin-pot clavulanate 875-125 mg tablet 1 tab PO Q12H 5 Days Qty: 10 0RF azithromycin 500 mg tablet See Rx Instructions .ROUTE .COMPLEX Qty: 6 0RF Rx Instructions: For 250 mg dose pack: take 500 mg today (day 1), then 250 mg for 4 days (days 2-5) omeprazole 20 mg capsule,delayed release(DR/EC) 20 mg PO DAILY@0630 (DME) blood-glucose meter [FreeStyle [place] Lite] Kit See Rx Instructions Not Applicable DAILY Qty: 1 Rx Instructions: As directed thiamine HCl (vitamin B1) 100 mg tablet 100 mg PO DAILY (DME) FreeStyle Lite Strips Strip See Rx Instructions Not Applicable TID Qty: 10 Rx Instructions: As directed duloxetine 30 mg capsule,delayed release(DR/EC) 30 mg PO DAILY magnesium oxide 400 mg (241.3 mg magnesium) tablet 400 mg PO BID folic acid 1 mg tablet 1 mg PO DAILY clonidine HCl 0.2 mg tablet 0.2 mg PO BID lisinopril 40 mg tablet 40 mg PO DAILY metformin 1,000 mg tablet 1,000 mg PO BIDWM (DME) pen needle, diabetic [Sure Comfort Pen Needle] 31 gauge x 3/16 needle See Rx Instructions .ROUTE BID Qty: 50 Rx Instructions: As directed Print Language: Liberian
--- OUTSIDE RECORDS SUMMARY | 2025-03-29 18:32 | XMS_ITS | Encounter Summary ---
Author Organization [employer] Address [address] [place] [address] 7[address] [place] [address] Care Team Providers Care Biodiesel Product Manager Name Role Phone Cathy Gerber Primary Care Provider Reason for Visit * Reason Comments Med Refill Encounter Details Date Type Department Care Team (Late Contact Info) Description 08/07/2023 Refill [facility] [address] [place] [phone] Cathy Gerber ANP [address] [place] [phone] Social History Tobacco Use Types Packs/Day Years [...] Department Care Team (Late Contact Info) Description 06/15/2025 2:00 PM EST Office Visit [facility] [address] [place] [phone] Cathy Gerber ANP [address] [place] [phone] documented as of this encounter Visit Diagnoses Not on filedocumented in this encounter Care Teams Biodiesel Product Manager Relationship Specialty Start Date End Date Cathy Gerber ANP [address] [place] [phone] PCP - General Family Medicine 06/28/22 documented as of this encounter
--- OUTSIDE RECORDS SUMMARY | 2025-03-29 18:32 | XMS_ITS | Encounter Summary ---
Author Organization [employer] Address [address] [facility] 7t [place] [address] Care Team Providers Care Litigation Manager Name Role Phone Cathy Gerber Primary Care Provider [phone] Encounter Details Date Type Department Care Team (Late st Contact Info) Description 03/29/2025 Orders Only GENERIC EXTERNAL DATA DEPARTMENT Provider, [...] Answer Date Recorded Patient Health Questionnaire-9 Score 8 02/24/2025 Patient Health Questionnaire-9 Score 8 02/24/2025 Last PHQ-9: Questionnaire Data Not on file 0 02/24/2025 Housing Stability Answer Date Recorded What is your housing situation today? I have tg hernandez 09/12/[address] you li ve. Do you have problems with any of the following? None of the above 09/12/2023 Food Insecurity Answer Date Recorded Within the past 12 months, y ou worried that your food would run out before you got money to buy more: Often true 12/15/2024 Within the past 12 months,th e food you bought just didn't last and you didn't have enough money to get more: Often true Transportation Answer Date Recorded In the past [...] Answer Date Recorded Patient Health Questionnaire-2 Score 2 02/24/2025 Internet Access Answer Date Recorded Internet Access Q1 Yes 01/12/2025 Internet Access Q2 Not on file 01/12/2025 Comments No Sex and Gender Information Value Date Recorded Sex Assigned at Female 05/21/2022 10:16 AM EDT Legal Sex Female 10:16 AM EDT Gender Identity Female 05/21/2022 10:16 AM EDT Sexual Orientation Straight 05/21/2022 10 :16 AM EDT documented as of this encounter Plan of Treatment Upcoming Encounters Date Type Department Care Team (Late st Contact Info) Description 06/15/2025 2:00 PM EST Office Visit [facility] [address] [place], [place] [phone] Cathy Gerber ANP [address] [place], [place] [phone] documented as of this encounter Procedures Procedure Name Priority Date/Time Associated Diagnosis Comments URINALYSIS, COMPLETE, WITH REFLEX TO CULTURE Routine 03/29/2025 5:52 PM EDT CBC WITH AUTO DIFFERENTIAL Routine 03/29/2025 3:26 PM EDT MAGNESIUM Routine 03/29/2025 3:26 PM EDT BASIC METABOLIC PANEL Routine 03/29/2025 3:26 PM EDT documented in this encounter Results * (ABNORMAL) Urinalysis, Complete, with Reflex to Culture (03/29/2025 5:52 PM EDT) Color Urine Yellow [facility] Appearance Urine Clear [facility] PH 8.0 5.0 - 9.0 [facility] Glucose Urine UA Negative Negative mg/dL [facility] Urine Blood Small (1+)(A) Negative [facility] Specific Gatzke - Urine 1.010 1.005 - 1.025 [facility] Urine Protein Negative Neg-Trace mg/dL [facility] Urine Ketones Negative Negative mg/dL [facility] Nitrite Urine Negative Negative [facility] Leukocyte Esterase Urine Negative Negative [facility] RBC Urine 0-2 0 - 2 /HPF [facility] Urine WBC 0-5 0 - 5 /HPF [facility] Urine Squamous Epithelial Cell 0-2 0 - 2 /HPF [facility] Urine Bacteria 2+ None Seen [facility] Hyaline Casts, Urine 0-2 0 - 2 /LPF [facility] 03/29/2025 5:52 PM EDT 03/29/2025 5:55 PM EDT Narrative [facility] - 03/29/2025 6:12 PM EDT [id number], Clean Catch Generic External Data Provider LAB URINE ORDERAB LES Final Result Performing Organization Address [facility]/ZIP Co de Phone Number [facility] [address] [place] [phone] * Magnesium (03/29/2025 3:26 PM EDT) Pathologist [facility] Magnesium 1.8 1.6 - 2.6 mg/dL [facility] 03/29/2025 3:26 PM EDT 03/29/2025 3:28 PM EDT Generic External Data Provider LAB BLOOD ORDERAB LES Final Result Performing Organization Address [facility] Co de Phone Number [facility] [address] [place] [phone] * (ABNORMAL) Basic Metabolic Panel (03/29/2025 3:26 PM EDT) Pathologist [facility] Sodium 142 135 - 145 mmol/L [facility] Potassium 3.9 3.3 - 5.1 mmol/L [facility] Chloride 108 96 - 108 mmol/L [facility] Carbon Dioxide 27 22 - 29 mmol/L [facility] Anion Gap 11(L) 12 - 20 [facility] Urea Nitrogen (BUN) 7(L) 9 - 16 mg/dL [facility] Creatinine, Serum 0.66 0.5 - 1.4 mg/dL [facility] Creatinine Clr Calc Pharmacy 103.0 [facility] Comment:Provided height and weight: 149.86 cm,90.1 kg.eGFR (calculated from the MDRD study equation) and eCrCl(calculated from the Cockcroft-Gault equation) are based ondifferent parameters and may not yield comparable results.If eCrCl result is absurd, please check patient'sheight/weight. Estimated Glomerular Filt Rate >60 [facility] Comment:Chronic Kidney Disea se: Estimated GFR < 60 mL/min/1.37b6Hvijaw Kidney Disease: Estimated GFR < 15 mL/min/1.73m2 Glucose 115 60 - 115 mg/dL [facility] Calcium 8.7 8.4 - 10.2 mg/dL [facility] 03/29/2025 3:26 PM EDT 03/29/2025 3:28 PM EDT us Generic External Data Provider LAB BLOOD ORDERAB LES Final Result [facility] [address] [place] [phone] * CBC auto differential (03/29/2025 3:26 PM EDT) White Blood Count 9.0 4.8 - 10.8 X10*3/uL [facility] Red Blood Count 4.84 4.20 - 5.50 X10*6/uL [facility] Hemoglobin 13.4 12.0 - 16.0 g/dl [facility] Hematocrit 40.0 37.0 - 47.0 % [facility] Mean Corpuscular Volume 82.6 80.0 - 98.0 fL [facility] Mean Corpuscular Hemoglobin 27.7 27.0 - 33.0 pg [facility] Mean Corpuscular HGB Conc 33.5 31.0 - 35.0 g/dl [facility] Red Cell Distribution Width 14.1 11.0 - 16.0 % [facility] Platelet Count 276 160 - 400 X10*3/uL [facility] Mean Platelet Volume 10.7 9.4 - 12.3 fL [facility] Neutrophils Percent Auto 59.2 45 - 73 % [facility] Imm Gran Pct Auto 0.3 0.0 - 0.4 % [facility] Lymphocytes Percent Auto 29.4 20 - 40 % [facility] Monocytes Percent Auto 6.7 2 - 11 % [facility] Eosinophils Percent Auto 3.5 0 - 4 % [facility] Basophils Percent Auto 0.9 0 - 2 % [facility] NRBC Pct Auto 0.0 0.0 - 0.2 /100WBC [facility] Neutrophils Absolute Auto 5.3 2.0 - 8.3 x10*3/uL [facility] Imm Gran Abs Auto 0.03 0.00 - 0.03 X10*3/uL [facility] Lymphocytes Absolute Auto 2.6 1.2 - 4.9 X10*3/uL [facility] Monocytes Absolute Auto 0.6 0.1 - 1.2 X10*3/uL [facility] Eosinophils Absolute Auto 0.3 0.0 - 0.4 X10*3/uL [facility] Basophils Absolute Auto 0.1 0.0 - 0.2 X10*3/uL [facility] NRBC Abs Auto 0.000 0.0 - 0.012 X10*3/uL [facility] 03/29/2025 3:26 PM EDT 03/29/2025 3:28 PM EDT us Generic External Data Provider LAB BLOOD ORDERAB LES Final Result [facility] [address] [place] [phone] documented in this encounter Visit Diagnoses Not on filedocumented in this encounter Additional Health Concerns Assessment Noted Time PHQ-9 Depression Total Score: 8 02/25/20 25 1:40 PM EDT documented as of this encounter Care Teams Litigation Manager Relationship Specialty Start Date End Date Cathy Gerber ANP [address] [place] [phone] PCP - General Family Medicine 06/28/22 documented as of this encounter
--- OUTSIDE RECORDS SUMMARY | 2025-03-29 18:32 | XMS_ITS | Encounter Summary ---
Author Organization [email or web address] Address [address] [facility] 7t [place] [address] Care Team Providers Care Cant Gang Sawyer Name Role Phone Cathy Gerber Primary Care Provider [phone] Reason for Visit * Reason Comments Med Refill Encounter Details Date Type Department Care Team ([facility] st Contact Info) Description 03/25/2025 Refill [facility] MED[facility]INE [address] [place], [place] [phone] Cathy Gerber ANP [address] [place] [address] Hypertension associated with diabetes (CMS/HCC) Social History Tobacco Use Types Packs/Day [...] Description 06/15/2025 2:00 PM EST Office Visit [facility] [address] [place] [phone] Cathy Gerber ANP [address] [place] [address] documented as of this encounter Visit Diagnoses Diagnosis Hypertension associated with diabetes (CMS/HCC) Unspecified essential hypertension documented in this encounter Additional Health Concerns Assessment Noted Time PHQ-9 Depression Total Score: 8 02/25/20 25 1:40 PM EDT documented as of this encounter Care Teams Cant Gang Sawyer Relationship Specialty Start Date End Date Cathy Gerber ANP [address] [place] [phone] PCP - General Family Medicine 06/28/22 documented as of this encounter
--- OUTSIDE RECORDS SUMMARY | 2025-03-29 18:32 | XMS_ITS | Encounter Summary ---
Author Organization [employer] [facility] Address [address] [place] [address] 7t [place] [address] Care Team Providers Care Underliner Name Role Phone Cathy Gerber Primary Care Provider [phone] Reason for Visit * Reason Comments Med Change Request Encounter Details Date Type Department Care Team ([facility] Contact Info) Description 08/20/2023 Refill [facility] MED[facility]INE [address] [place] [phone] Cathy Gerber ANP [address] [place] [phone] Seizure disorder (CMS/HCC) Social History Tobacco Use [...] Upcoming Encounters Date Type Department Care Team ([facility] Contact Info) Description 06/15/2025 2:00 PM EST Office Visit [facility] [address] [place] [phone] Cathy Gerber ANP [address] [place] [address] documented as of this encounter Visit Diagnoses Diagnosis Seizure disorder (CMS/HCC) Unspecified epilepsy without mention of intractable epilepsy documented in this encounter Care Teams Underliner Relationship Specialty Start Date End Date Cathy Gerber ANP [address] [place] [address] PCP - General Family Medicine 06/28/22 documented as of this encounter
--- OUTSIDE RECORDS SUMMARY | 2025-03-29 18:32 | XMS_ITS | Encounter Summary ---
Author Organization [employer] Address [address] [place] [address] 7t [place] [address] Care Team Providers Care Liquor Commissioner Name Role Phone Cathy Gerber Primary Care Provider [phone] Encounter Details Date Type Department Care Team (Late Contact Info) Description 09/03/2022 Abstract [facility] [address] [place] [phone] Cathy Gerber ANP [address] [place] [address] Social History Tobacco Use Types Packs/Day Years [...] Description 06/15/2025 2:00 PM EST Office Visit [facility] [address] [place] [phone] Cathy Gerber ANP [address] [place] [address] documented as of this encounter Visit Diagnoses Not on filedocumented in this encounter Care Teams Liquor Commissioner Relationship Specialty Start Date End Date Cathy Gerber ANP [address] [place] [phone] PCP - General Family Medicine 06/28/22 documented as of this encounter
--- OUTSIDE RECORDS SUMMARY | 2025-03-29 18:32 | XMS_ITS | Encounter Summary ---
Author Organization [employer] Address [address] [facility] 7t [place] [address] Care Team Providers Care Professor Of Art Name Role Phone Cathy Gerber Primary Care Provider [phone] Reason for Visit * Reason Onset Date Comments Appointment Request 04/24/2024 Encounter Details Date Type Department Care Team ([facility] st Contact Info) Description 04/24/2024 Telephone [facility] MED[facility]INE [address] [place] [address] Cathy Gerber ANP [address] [place] [address] Appointment Request Social History Tobacco Use Types [...] patient calling to reschedule appt from 04/24 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 did attempt to reschedule however thereis no availability documented in this encounter Plan of Treatment Upcoming Encounters Date Type Department Care Team (Late st Contact Info) Description 06/15/2025 2:00 PM EST Office Visit [facility] MED[facility]INE [address] [place] [address] Cathy Gerber ANP [address] [place] [address] documented as of this encounter Visit Diagnoses Not on filedocumented in this encounter Additional Health Concerns Assessment Noted Time PHQ-9 Depression Total Score: 0 09/12/19 24 10:17 AM EST documented as of this encounter Care Teams Professor Of Art Relationship Specialty Start Date End Date Cathy Gerber ANP [address] [place] [phone] PCP - General Family Medicine 06/28/22 documented as of this encounter
--- OUTSIDE RECORDS SUMMARY | 2025-03-29 18:32 | XMS_ITS | Encounter Summary ---
Author Organization [employer] Address [address] [facility] 7t [place] [address] Care Team Providers Care Embryology Professor Name Role Phone Cathy Gerber Primary Care Provider [phone] Reason for Visit * Reason Onset Date Comments Med Refill 07/05/2023 Encounter Details Date Type Department Care Team (Late st Contact Info) Description 07/05/2023 Refill [facility] [address] [place] [address] Cathy Gerber ANP [address] [place] [address] Gastroesophageal reflux disease, unspecified whether esophagitis present [...] - 07/05/2023 1:48 PM EST Tc from customer care agent requesting medication refill for glucose blood (FREESTYLE LITE) test strip,Lancets 33G misc and omeprazole (PriLOSEC) [address] capsule documented in this encounter Plan of Treatment Upcoming Encounters Date Type Department Care Team (Late st Contact Info) Description 06/15/2025 2:00 PM EST Office Visit [facility] [address] [place] [address] Cathy Gerber ANP [address] [place], [place] [phone] documented as of this encounter Visit Diagnoses Diagnosis Gastroesophageal reflux disease, unspecified whether esophagitis present documented in this encounter Care Teams Embryology Professor Relationship Specialty Start Date End Date Cathy Gerber ANP [address] [place] [phone] PCP - General Family Medicine 06/28/22 documented as of this encounter
--- OUTSIDE RECORDS SUMMARY | 2025-03-29 18:32 | XMS_ITS | Clinical Summary ---
Author Organization [employer] Address [address] [place] [address] [address] Care [address] Manager Name Role Phone Cathy Gerber Primary Care Provider [phone] Allergies Active Allergy Reactions Criticality Noted Date Comments Gramineae Pollens 07/27/2022 Tomato Rash Low 07/31/2023 Medications Blood Glucose Monitoring Suppl (FreeStyle Lite) w/Device kit 1 kit 3 times daily. 1 kit 023 Active albuterol 108 (90 Base) MCG/ACT inhalerIndication s:COPD exacerbation ([facility]) Inhale 2 puffs every 6 (six) hours if needed for wheezing. 18 g 023 Active hydrOXYzine HCl (Atarax) 25 MG tablet Take 25 mg by mouth if needed in the morning and at bedtime. 023 Active dulaglutide (Trulicity) 3 MG/0.5ML solution pen-injectorIndic ations:Type 2 diabetes mellitus with hyperlipidemia (CMS/HCC) ([facility]) Inject 3 mg under the skin 1 (one) time per week. 4 each 024 Active DULoxetine (Cymbalta) 30 MG [...] ype 2 diabetes mellitus with hyperlipidemia (CMS/HCC) (CMS/[facility]) USE DIRECTED 100 each 11 024 Active DULoxetine (Cymbalta) [...] A DAY 100 each 3 024 Active Sodium Fluoride 5000 PPM 1.1 [...] A MEAL 90 capsule 1 024 Active olmesartan-hydroC HLOROthiazide (Benicar HCT) 40-12.5 MG tabletIndications :Primary hypertension Take 1 tablet by mouth Once per day. 90 tablet 1 025 2025 Active insulin degludec (Tresiba FlexTouch) 100 UNIT/ML injectionIndicati ons:Type 2 diabetes mellitus with hyperlipidemia ([facility]/HCC) ([facility]) Inject 36 Units under the skin Once daily. 15 mL 5 025 2025 Active semaglutide (Ozempic) 2 MG/1.5ML solution pen-injectorIndic ations:Type 2 diabetes mellitus with hyperlipidemia (CMS/HCC) ([facility]) Inject 1 mg under the skin 1 (one) time per week. 2 each 12 025 Active Continuous Glucose Analog Ic Design Engineer (FreeStyle Pedro 3 [place]) deviceIndications :Type 2 diabetes mellitus with hyperlipidemia (CMS/HCC) ([facility]) 1 each Once per day. Use as directed for CGM 1 each 025 Active Continuous Glucose Sensor (FreeStyle Pedro 3 Plus Sensor) miscIndications:T ype 2 diabetes mellitus with hyperlipidemia (CMS/HCC) ([facility]) 1 each every 15 days. Apply 1 every 15 days as directed for CGM 2 each 025 Active glucose blood (FreeStyle Precision Edward Test) test stripIndications: Type 2 diabetes mellitus with hyperlipidemia (CMS/HCC) ([facility]) Use to test blood sugar 4 times daily in case of CGM failure or extremes of BG 100 each 025 2025 Active pregabalin (Lyrica) 50 MG capsuleIndication s:Chronic pain syndrome,Restless legs,Neuropathic pain TAKE 1 CAPSULE BY MOUTH THREE TIMES A DAY 90 capsule 1 025 Active thiamine (Vitamin B-1) 100 MG tabletIndications :Alcohol dependence with unspecified alcohol-induced disorder ([facility]) TAKE 1 TABLET BY MOUTH EVERY DAY IN THE MORNING 90 tablet 025 Active gabapentin (Neurontin) 600 MG tablet Take 600 mg by mouth 3 times daily. 019 Active magnesium oxide (Mag-Ox) 400 (240 Mg) MG tablet TAKE 1 TABLET BY MOUTH TWICE A DAY 180 tablet 025 Active Aspirin Low Dose 81 MG chewable tabletIndications :Type 2 diabetes mellitus with hyperlipidemia (CMS/HCC) ([facility]) CHEW 1 TABLET BY MOUTH EVERY DAY 90 tablet 025 Active atorvastatin (Lipitor) 40 MG tabletIndications :Type 2 diabetes mellitus with hyperlipidemia (CMS/HCC) ([facility]) TAKE 1 TABLET BY MOUTH AT BEDTIME 90 tablet 025 Active FREESTYLE LITE test stripIndications: Type 2 diabetes mellitus with hyperlipidemia ([facility]/HCC) ([facility]) USE TO TEST BLOOD SUGAR THREE TIMES A DAY 100 strip 11 025 Active levETIRAcetam (Keppra) 1000 MG tabletIndications :Seizure disorder ([facility]) TAKE 1 + 1/2 TABLETS BY MOUTH TWICE A DAY 270 tablet 025 Active metFORMIN (Glucophage) 1000 MG tabletIndications :Type 2 diabetes mellitus with other specified complication, with long-term current use of insulin ([facility]) TAKE 1 TABLET BY MOUTH TWICE DAILY IN THE MORNING AND IN THE EVENING WITH MEALS 180 tablet 1 025 Active Tirzepatide (Mounjaro) 2.5 MG/0.5ML solution auto-injectorIndi cations:Type 2 diabetes mellitus with hyperlipidemia (CMS/HCC) (CMS/HCC) Inject 2.5 mg under the skin 1 (one) time per week. 2 mL 2 025 Active cloNIDine (Catapres) 0.2 MG tabletIndications :Hypertension associated with diabetes (CMS/HCC) TAKE 1 TABLET BY MOUTH TWICE A DAY 180 tablet 1 025 Active metFORMIN (Glucophage) 1000 MG tabletIndications :Type 2 diabetes mellitus with other specified complication, with long-term current use of insulin (CMS/HCC) TAKE 1 TABLET BY MOUTH TWICE DAILY IN THE MORNING AND IN THE EVENING WITH MEALS 180 tablet 1 025 2024 Discontinued cloNIDine (Catapres) 0.2 MG tabletIndications :Hypertension associated with diabetes (CMS/HCC) TAKE 1 TABLET BY MOUTH TWICE A DAY 180 tablet 1 025 2024 Discontinued carbamide peroxide (Debrox) 6.5 % otic solutionIndicatio ns:Impacted cerumen of left ear Administer 5-10 drops into the left ear 2 times daily for 4 days. 15 mL 025 2024 Active Problems Problem Noted Date Diagnosed Date Intraparenchymal hematoma of brain 03/16/2025 Overview (03/16/2025): 10/25/2018 W/ residual effects gait abnormality d/t R hemiparesis, and focal epilepsy Urinary incontinence, nocturnal enuresis 025 Transaminitis 11/12/2023 Assessment & Plan (11/12/2023 6:58 PM EDT): 10/2023 AST 87, ALT 48. Denies alcohol use Pt w chronic elevated LFTs ,possible associated w fatty liver and uncontrolled DM? -pt has f up w PCP in 2 months already scheduled apt and can have labs monitored then , if no improvement will need Abd US Adrenal nodule 05/08/2023 Overview (05/08/2023): -CT abd/pelvis done [facility] ER 01/16/2023 for RLQ abd pain revealed left adrenal nodule measuring 1.2cm, probably benign, although risk is increased if there is a prior history of malignancy. Consider biochemical assays to determine functional status and exclude pheochromocytoma. Also consider follow up adrenal CT protocol or chemical shift MRI in 12 months to assess stability. Alcohol dependence 07/02/2022 Overview (03/16/2025): In recovery for 14mos as of 02/2025 Anxiety 07/02/2022 Chronic pain syndrome 07/02/2022 Cocaine use disorder in remission 07/02/2022 Overview (03/16/2025): In recovery for 14mos as of 02/2025 Gastroesophageal reflux disease 07/02/2022 H/O: attempted suicide 07/02/2022 History of COVID-19 07/02/2022 Mild persistent asthma 07/02/2022 Morbid obesity 07/02/2022 Opioid dependence 07/02/2022 Posttraumatic stress disorder 07/02/2022 Assessment & Plan (11/12/2023 6:58 PM EDT): -has a psychiatrist and thrapist ,refuse BH today ,states to be in better in mood , no SI Restless legs 07/02/2022 Right hemiparesis 07/02/2022 Schizoaffective disorder 07/02/2022 Seizure as late effect of cerebrovascular accide nt (CVA) 07/02/2022 Assessment & Plan (11/12/2023 6:57 PM [...] Chronic low back pain 07/04/2015 Hypertension 07/04/2015 Resolved Problems Problem Noted Date Diagnosed Date Resolved Date COPD exacerbation 07/09/2023 03/16/2025 Encounters Date Type Department Care Team Description 03/29/2025 Orders Only GENERIC EXTERNAL DATA DEPARTMENT Provider, Generic External Data 03/29/2025 Patient Outreach [address] [phone] Cathy Gerber ANP Care Coordination (SDOH) 03/25/[address] [address] Cathy Gerber ANP Hypertension associated with diabetes (CMS/HCC) 03/23/2025 Patient Outreach [address] [address] Cathy Gerber ANP Care Management (C3CM- f/u call) 03/16/2025 1:30 PM EDT Office Visit [address] [address] Cathy Gerber ANP Type 2 diabetes mellitus with hyperlipidemia ([facility]) ([facility]) (Primary Dx); Diarrhea, unspecified type; Bilateral hearing loss, unspecified hearing loss type; Impacted cerumen of left ear; Alcohol dependence in remission ([facility]); Cocaine use disorder in remission; Seizure as late effect of cerebrovascular accident (CVA) ([facility]); Intraparenchymal hematoma of brain, left, with unknown loss of consciousness status, sequela ([facility]); Dietary counseling; Exercise counseling; Right hemiparesis ([facility]) 03/16/2025 Travel 03/11/2025 Patient Outreach [address] [address] Cathy Gerber ANP 03/11/2025 Patient Outreach [address] [phone] Cathy Gerber ANP Care Coordination (SDOH f/u) 03/08/2025 Patient Outreach [address] [address] Cathy Gerber ANP Care Coordination (SDOH) 03/04/[address] [address] Cathy Gerber ANP Type 2 diabetes mellitus with other specified complication, with long-term current use of insulin ([facility]) 02/24/2025 Plan of Care Documentation [address] [address] 02/24/2025 Patient Outreach [address] [address] Cathy Gerber ANP Care Management (C3CM- initial assessment/ enrollment.) 02/23/[address] [address] Cathy Gerber ANP Seizure disorder ([facility]) 02/23/2025 Patient Outreach [address] [address] Cathy Gerber ANP Care Coordination (CM/CHW appt reminder) 02/18/[address] [address] Kiana Herrera FNP Chart Prep 02/17/2025 Telephone [facility] [address] [place] [phone] Cathy Gerber ANP Nurse Triage; No Show (No show sick on site ) 02/16/2025 Patient Outreach [address] [address] Cathy Gerber ANP Care Coordination (CM/CHW outreach) 02/01/2025 Refill [facility] [address] [place] [phone] Alena Rae MD Type 2 diabetes mellitus with hyperlipidemia (CMS/HCC) ([facility]/HCC) 01/28/2025 Refill [facility] [address] [place] [phone] Cathy Gerber ANP Type 2 diabetes mellitus with hyperlipidemia ([facility]/HCC) 01/18/[address] [address] Cathy Gerber ANP 01/14/[address] [address] Cathy Gerber ANP Alcohol dependence with unspecified alcohol-induced disorder ([facility]/HCC) 01/14/[address] [address] Reji North CNP Chart Prep 01/14/[address] [address] Cathy Gerber ANP Durable Medical Equipment 01/14/[address] [address] Cathy Gerber ANP Nurse Triage 01/06/[address] [address] Cathy Gerber ANP Appointment Request from Last 3 Months Immunizations Immunization Administration Dates Next Due Hep B, Unspecified [...] Q2 Not on file 01/12/2025 Comments No Intention Date Recorded No desire to become (finding) 0 09/24/2024 Sex and Gender Information Value Date Recorded Sex Assigned at Female 05/21/2022 10:16 AM EDT Legal Sex Female 10:16 AM EDT Gender Identity Female 05/21/2022 10:16 AM EDT Sexual Orientation Straight 05/21/2022 10 :16 AM EDT Last Filed Vital Signs Vital Sign Reading Time Taken Comments Blood Pressure 118/60 03/16/2025 1:28 PM EDT Pulse 88 03/16/2025 1:28 PM EDT Temperature 36.2 C (97.1 F) 03/16/2025 1:28 PM EDT Respiratory Rate 20 03/16/2025 1:28 PM EDT Oxygen Saturation 95% 11/06/2024 1:00 PM EDT room air Inhaled Oxygen Concentration - - Weight 85.5 kg (188 lb 9.6 oz) 03/16/2025 1:28 P M EDT Height 149.9 cm (4' 11 ) 03/16/2025 1:28 PM EDT Body Mass Index 38.09 03/16/2025 1:28 PM EDT Plan of Treatment Upcoming Encounters Date Type Department Care Team (Late st Contact Info) Description 06/15/2025 2:00 PM EST Office Visit [facility] [address], [place] [phone] Cathy Gerber ANP [address] [place] [address] Health Maintenance Due Date Last Done Comments CT Colonography 1975 Colonoscopy 1975 Colorectal Cancer Screening 1975 Dental Oral Exam 1975 Dental Prophylaxis 1975 Dental X-Ray: Bitewings 1975 Dental X-Ray: Full Mouth 1977 FIT DNA/Cologuard 1975 FIT 1975 FOBT 1975 HIV Screening 1975 Sigmoidoscopy 1975 Disability Screening 1975 Eye Exam 12/13/1987 Hepatitis C Screening 12/13/1995 Diabetes: Foot Exam 09/12/2024 09/12/2023, Lipid Panel 09/12/2024 09/12/2023 COVID-19 Vaccine ( season) 2025 09/25/2022, 08/24/2020, 08/03/2020 Influenza Vaccine (#1) 2025 8, 06/15/2013, 04/03/2012, Additional history exists Diabetes: Hemoglobin A1C 09/16/2025 025, 10/23/2024, 09/12/2023, Additional history exists Family Planning (PISQ) 09/24/2025 09/24/2024 Diabetes: Urine Protein Screening 10/23/2025 10/23/2024, 09/12/2023 Tobacco Screening 10/23/2025 10/23/2024 SDOH Screening 12/15/2025 12/15/2024 Alcohol/Substance Use Screening 02/24/2026 02/24/2025 Depression Screening 02/24/2026 02/24/2025, 02/25/20 DTaP/Tdap/Td Vaccines (3 - Td or Tdap) [...] Years) and At-Risk Patients (6 to 49) Years Completed 09/12/2023, 12/30/2006 HIB Vaccines Aged Out [...] TO CULTURE Routine 03/29/2025 5:52 PM EDT MAGNESIUM Routine 03/29/2025 3:26 PM EDT BASIC METABOLIC PANEL Routine 03/29/2025 3:26 PM EDT CBC WITH AUTO DIFFERENTIAL Routine 03/29/2025 3:26 PM EDT POCT GLYCATED HEMOGLOBIN, TOTAL Routine 03/16/2025 1:34 PM EDT Type 2 diabetes mellitus with hyperlipidemia (CMS/HCC) (CMS/HCC) POCT GLUCOSE Routine 03/16/2025 1:29 PM EDT Type 2 diabetes mellitus with hyperlipidemia (CMS/HCC) (CMS/HCC) ALBUMIN, RANDOM URINE W/CREATININE Routine 10/23/2024 3:30 PM EDT BI MAMMOGRAM SCREENING TOMOSYNTHESIS BILATERAL Routine 10/08/2024 11:15 AM EDT Breast cancer screening by mammogram HPV DNA, LOW/HIGH RISK Routine 09/24/2024 10:10 AM EST PAP SMEAR Routine 09/24/2024 10:10 AM EST Routine cervical smear LIPID PANEL, STANDARD Routine 09/12/2023 9:40 AM EST Type 2 diabetes mellitus with hyperlipidemia (CMS/HCC) from Last 3 Months or Most Recently Relevant to Health Maintenance Results * (ABNORMAL) Urinalysis, Complete, with Reflex to Culture (03/29/2025 5:52 PM EDT) Color Urine Yellow [facility] Appearance Urine Clear [facility] PH 8.0 5.0 - 9.0 [facility] Glucose Urine UA Negative Negative mg/dL [facility] Urine Blood Small (1+)(A) Negative [facility] Specific [place] - Urine 1.010 1.005 - 1.025 [facility] Urine Protein Negative Neg-Trace mg/dL [facility] Urine Ketones Negative Negative mg/dL [facility] Nitrite Urine Negative Negative [facility] Leukocyte Esterase Urine Negative Negative [facility] RBC Urine 0-2 0 - 2 /HPF [facility] Urine WBC 0-5 0 - 5 /HPF [facility] Urine Squamous Epithelial Cell 0-2 0 - 2 /HPF [facility] Urine Bacteria 2+ None Seen [facility] Hyaline Casts, Urine 0-2 0 - 2 /LPF [facility] 03/29/2025 5:52 PM EDT 03/29/2025 5:55 PM EDT Narrative [facility] - 03/29/2025 6:12 PM EDT [id number], Clean Catch us Generic External Data Provider LAB URINE ORDERAB LES Final Result [facility] [address] [place] [phone] * CBC auto differential (03/29/2025 3:26 PM EDT) White Blood Count 9.0 4.8 - 10.8 X10*3/uL [facility] Red Blood Count 4.84 4.20 - 5.50 X10*6/uL [facility] Hemoglobin 13.4 12.0 - 16.0 g/dl [facility] Hematocrit 40.0 37.0 - 47.0 % [facility] Mean Corpuscular Volume 82.6 80.0 - 98.0 fL [facility] Mean Corpuscular Hemoglobin 27.7 27.0 - 33.0 pg [facility] Mean Corpuscular HGB Conc 33.5 31.0 - 35.0 g/dl [facility] Red Cell Distribution Width 14.1 11.0 - 16.0 % [facility] Platelet Count 276 160 - 400 X10*3/uL [facility] Mean Platelet Volume 10.7 9.4 - 12.3 fL [facility] Neutrophils Percent Auto 59.2 45 - 73 % [facility] Imm Gran Pct Auto 0.3 0.0 - 0.4 % [facility] Lymphocytes Percent Auto 29.4 20 - 40 % [facility] Monocytes Percent Auto 6.7 2 - 11 % [facility] Eosinophils Percent Auto 3.5 0 - 4 % [facility] Basophils Percent Auto 0.9 0 - 2 % [facility] NRBC Pct Auto 0.0 0.0 - 0.2 /100WBC [facility] Neutrophils Absolute Auto 5.3 2.0 - 8.3 x10*3/uL [facility] Imm Gran Abs Auto 0.03 0.00 - 0.03 X10*3/uL [facility] Lymphocytes Absolute Auto 2.6 1.2 - 4.9 X10*3/uL [facility] Monocytes Absolute Auto 0.6 0.1 - 1.2 X10*3/uL [facility] Eosinophils Absolute Auto 0.3 0.0 - 0.4 X10*3/uL [facility] Basophils Absolute Auto 0.1 0.0 - 0.2 X10*3/uL [facility] NRBC Abs Auto 0.000 0.0 - 0.012 X10*3/uL [facility] 03/29/2025 3:26 PM EDT 03/29/2025 3:28 PM EDT us Generic External Data Provider LAB BLOOD ORDERAB LES Final Result [facility] [address] [place] [phone] * Magnesium (03/29/2025 3:26 PM EDT) Magnesium 1.8 1.6 - 2.6 mg/dL [facility] 03/29/2025 3:26 PM EDT 03/29/2025 3:28 PM EDT Generic External Data Provider LAB BLOOD ORDERAB LES Final Result [facility] [address] [place] [phone] * (ABNORMAL) Basic Metabolic Panel (03/29/2025 3:26 PM EDT) Sodium 142 135 - 145 mmol/L [facility] Potassium 3.9 3.3 - 5.1 mmol/L [facility] Chloride 108 96 - 108 mmol/L [facility] Carbon Dioxide 27 22 - 29 mmol/L [facility] Anion Gap 11(L) 12 - 20 [facility] Urea Nitrogen (BUN) 7(L) 9 - 16 mg/dL [facility] Creatinine, Serum 0.66 0.5 - 1.4 mg/dL [facility] Creatinine Clr Calc Pharmacy 103.0 [facility] Comment:Provided height and weight: 149.86 cm,90.1 kg.eGFR (calculated from the MDRD study equation) and eCrCl(calculated from the Cockcroft-Gault equation) are based ondifferent parameters and may not yield comparable results.If eCrCl result is absurd, please check patient'sheight/weight. Estimated Glomerular Filt Rate >60 [facility] Comment:Chronic Kidney Disea se: Estimated GFR < 60 mL/min/1.60k5Fgenha Kidney Disease: Estimated GFR < 15 mL/min/1.73m2 Glucose 115 60 - 115 mg/dL [facility] Calcium 8.7 8.4 - 10.2 mg/dL [facility] 03/29/2025 3:26 PM EDT 03/29/2025 3:28 PM EDT us Generic External Data Provider LAB BLOOD ORDERAB LES Final Result Performing Organization Address City/[facility]/ZIP Co de Phone Number [facility] [address] [place] [phone] * (ABNORMAL) POCT HGB A1C (03/16/2025 1:34 PM EDT) Hemoglobin A1C 6.2(A) 4.0 - 5.7 % QC Media Lot # [id number] Lot# Expiration Date , Blood 03/16/2025 1:34 PM EDT Cathy RODRIGUEZ POINT OF CARE TEST ENTER/EDIT OR DERABLES Final Result * POCT Glucose (03/16/2025 1:29 PM EDT) Glucose Blood, POC 144 60 - 200 mg/dL QC Media Lot # [id number] Lot# Expiration Date 368,[id number] Blood Capillary blood specimen / Unknown 03/16/2025 1:29 PM EDT Cathy RODRIGUEZ POINT OF CARE TEST ENTER/EDIT OR DERABLES Final Result * Albumin, Random Urine W/Creatinine (10/23/2024 3:30 PM EDT) Creatinine, Urine 138.11 mg/dL [facility] Microalbumin Urine 21.0 mg/L [facility] Microalbum Creatinine Ratio Ur 15.2 <30 ug/mg cr [facility] Comment:Albumin/Creatinine R atio Reference Ranges: Normal: < 30 ug/mg creatinine Microalbuminuria: 30 - 300 ug/mg creatinineClinical Albuminuria: > 300 ug/mg creatinine 10/23/2024 3:30 PM EDT 10/23/2024 4:42 PM EDT Cathy Gerber ANP LAB URINE ORDERABLES Final Resul t [facility] [address] [place] [phone] * BI Mammogram Screening Tomosynthesis Bilateral (10/08/2024 11:15 AM EDT) Anatomical Region Laterality Modality Breast Bilateral Mammography 10/08/2024 11:1 5 AM EDT Narrative 10/16/2024 3:56 PM EDT [facility] [address] [place] [address] Mammography Report Signed Patient: Yesika Farr MR#: [id number] 66 : 1975 Acct:[id number] Age/Sex: 48 / F ADM Date: 10/08/24 Loc: HO.MAMMO Attending Dr: Faisal Mendiola CNM Ordering Physician: FAISAL MENDIOLA CNM Results: 1 Negative Date of Service: 10/08/24 Follow Up: 1 Year From Orig [facility] Mammogram Procedure(s): MM tomosynthesis screening BI Accession Number(s): [id number] cc: FAISAL MENDIOLA CNM; Zahra Gerber [employer]ATE EXAMINATION: MM SCREENING DIGITAL BREAST TOMOSYNTHESIS, BILATERAL [...] 10/16/24 1553 DD/ 1115 TD/TT: 10/08/24 1140 Kiln Firer: Procedure Note Donotuseinterpreter, Image - 10/16/2024 [facility] [address] [place] [address] Mammography Report Signed Patient: Yesika Farr MMR#: [id number] 66 : 1975Acct:[id number] Age/Sex: 48 / FADM Date: 10/08/24 Loc: HO.MAMMO Attending Dr: Faisal Mendiola CNM Ordering Physician: FAISAL MENDIOLAesults: 1 Negative Date of Service: 10/08/24Follow Up: 1 Year From Orig inal Mammogram Procedure(s): MM tomosynthesis screening BI Accession Number(s): [id number] cc: FAISAL MENDIOLA CNM; Zahra Gerber [facility] EXAMINATION: MM SCREENING DIGITAL BREAST TOMOSYNTHESIS, [...] 10/16/24 1553 DD/ 1115 TD/TT: 10/08/24 1140 Kiln Firer: Faisal Mendiola CNM IMG BI PROCEDURES Final R esult * HPV DNA, Low/High Risk (09/24/2024 10:10 AM EST) HPV High Risk Negative Negative [facility] HPV Genotype 16 Negative Negative [facility] HPV Genotype 18 Negative Negative [facility] Comment:HPV testing performe d at [facility] (CLIA#[id number]), [address] [place] [address].Testing for HPV was performed using the [employer]system. The presence of HPV in the female [...] EST 10/02/2024 1:05 PM EDT Faisal Mendiola CNM LAB BLOOD ORDERABLES Sandie l Result [facility] [address] [place] [phone] * Pap Smear (09/24/2024 10:10 AM EST) Swab Cervix uteri structure / Unknown 09/24/2024 10:10 AM EST 09/25/2024 6:25 AM EST Narrative [facility] - 10/12/2024 8:35 AM EDT ----- ------- Name: Yesika Farr Age/Sex: 48/F : 1975 Unit#: [id number] Attend Dr: FAISAL MENDIOLA CNM Re09/24/24 Status: [facility]P [facility]: [facility] ------- SPEC : [id number] RECD: 09/25/24 STATUS: SWETA KEBEDE NUM: [id number] CHAVEZ: 09/24/24-101[address] [facility] [address]: FAISAL MENDIOLA CNM ENTERED: 09/28/24 SP TYPE: Pap Smr OTHR : ORDERED: Pap Smear Interpretation Satisfactory for evaluation. Negative for intraepithelial lesion or malignancy. No endocervical cells seen. HPV High Risk: Negative HPV Genotyping 16: Negative HPV Genotyping 18: Negative Clinical Information LMP:unk Previous PAP test: Unk Other surgery: Other history: Material Received ThinPrep-Cervix ----- ------- Signed (signature on file) LYSSA Huber (ASCP) 10/12/24 0835 ----- ------- END OF REPORT Faisal Luigi [facility] CYTOLOGY ORDERABLES F inal Result Performing Organization Address City/[facility]/[place] Co de Phone Number [facility] [address], [place] [phone] * Lipid Panel, Standard (09/12/2023 9:40 AM EST) Triglycerides 88 <150 mg/dL [facility] Comment:Desirable Triglyceri de: less than 150 mg/dLBorderline High Triglyceride 150-199 mg/dLHigh Triglyceride: 200-499 mg/dLVery High Triglyceride: greater than or equal to 5OO mg/dL Cholesterol 111 <200 mg/dL [facility] Comment:Desirable Cholestero l: less than 200 mg/dLBorderline High Cholesterol: 200-239 mg/dLHigh Cholesterol: greater than 239 mg/dL LDL Cholesterol Calculated 52 <100 mg/dL [facility] Comment:Desirable LDL: less than 100 mg/dLNear Optimal/Above Optimal LDL: 110- 129 mg/dLBorderline High LDL: 130-159 mg/dLHigh LDL: 160-189 mg/dLVery High LDL: greater than or equal to 190 mg/dL HDL Cholesterol 42 >40 mg/dL [facility] Comment:Desirable HDL: great er than 40 mg/dL Note: This HDL assay may give artificially low results in patients with liver disease. Blood Venous blood specimen / Unknown 09/12/2023 9:40 AM EST 09/12/2023 11:22 AM EST Cathy RODRIGUEZ LAB BLOOD ORDERABLES Final Resul t Performing Organization Address [facility] Phone Number [facility] [address] [place], [place] [phone] from Last 3 Months or Most Recently Relevant to Health Maintenance [place] [address] [place] [address] [place] [address] [facility] MEDICAID [place] [address] [place] [address] [place] [address] Relationship Specialty Start Date End Date Cathy Gerber ANP [address] [place] [address] PCP - General Family Medicine 06/28/22
--- OUTSIDE RECORDS SUMMARY | 2025-03-29 18:32 | XMS_ITS ---
Author Organization [employer] Address [address] [place] [address] 7t [place] [address] Care Team Providers Care Spring Coiling Machine Setter Name Role Phone Cathy Gerber Primary Care Provider [phone] CM Complex Status:Enrolled (Active) Start date:11/17/2024 Enrollment date:02/24/2025 Enrollment reason:ADT Feed Overview ED- Pt went to [facility] ED on 11/16/24. Case Team Name Relationship Phone Jaya Uribe RN(Responsible Staff) Registered Nurse [phone] Continued Care and Services Coordination
--- OUTSIDE RECORDS SUMMARY | 2025-03-29 18:32 | XMS_ITS | Encounter Summary ---
Author Organization [employer] Address [address] [facility] 7t [place] [address] Care Team Providers Care Medical Claims Analyst Name Role Phone Cathy Gerber Primary Care Provider [phone] Reason for Visit * Reason Onset Date Comments Durable Medical Equipment 09/15/2024 Encounter Details Date Type Department Care Team ([facility] st Contact Info) Description 09/15/2024 Telephone [facility] [address] [place] [address] Cathy Gerber ANP [address] [place] [address] Durable Medical Equipment Social History Tobacco Use [...] gloves. 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 When asked what TUMBLER MACHINE OPERATOR HELPER uses the gloves for, she stated, she [...] DME for Gloves Medium. Contact pt at [phone] documented in this encounter Plan of Treatment Upcoming Encounters Date Type Department Care Team (Late st Contact Info) Description 06/15/2025 2:00 PM EST Office Visit [facility] [address] [place] [address] Cathy Gerber ANP [address] [place] [address] documented as of this encounter Visit Diagnoses Not on filedocumented in this encounter Additional Health Concerns Assessment Noted Time PHQ-9 Depression Total Score: 0 09/12/19 24 10:17 AM EST documented as of this encounter Care Teams Medical Claims Analyst Relationship Specialty Start Date End Date Cathy Gerber ANP [address] [place] [address] PCP - General Family Medicine 06/28/22 documented as of this encounter
--- OUTSIDE RECORDS SUMMARY | 2025-03-29 18:32 | XMS_ITS | Encounter Summary ---
Author Organization [employer] Address 75 [facility] 7t [place] [address] Care Team Providers Care Concrete Crusher Loader Operator Name Role Phone Cathy Gerber Primary Care Provider [phone] Reason for Visit * Reason Onset Date Comments Referral 08/09/2023 Encounter Details Date Type Department Care Team ([facility] st Contact Info) Description 08/09/2023 Telephone [facility] 230 [place] [address] Cathy Gerber ANP 230 [place] [address] Referral Social History Tobacco Use Types Packs/Day [...] EST Sent referral and messaged pt via [facility] to notify * Telephone Encounter - Ana Larson - 08/29/2023 3:06 PM EST TC from pt requesting status on message below. * Telephone Encounter - Yasmeen Uribe - 08/09/2023 1:34 PM EST TC from pt requesting new referral DATE: N/A TIME: N/A Location: [address] [place] [address] Facility: [facility] physical therapy Type of Specialist: PT DX: right side hemiparesis Please contact pt at [phone] documented in this encounter Plan of Treatment Upcoming Encounters Date Type Department Care Team ([facility] st Contact Info) Description 06/15/2025 2:00 PM EST Office Visit [facility] MED[facility]INE [address] [place] [address] Cathy Gerber ANP [address] [place] [address] documented as of this encounter Visit Diagnoses Not on filedocumented in this encounter Care Teams Concrete Crusher Loader Operator Relationship Specialty Start Date End Date Cathy Gerber ANP [address] [place] [address] PCP - General Family Medicine 06/28/22 documented as of this encounter
--- OUTSIDE RECORDS SUMMARY | 2025-03-29 18:32 | XMS_ITS | Encounter Summary ---
Author Organization [employer] Address 75 [facility] 7t [place] [address] Care Team Providers Care Photonics Technician Name Role Phone Cathy Gerber Primary Care Provider [phone] Reason for Visit * Reason Onset Date Comments Referral 09/15/2024 Encounter Details Date Type Department Care Team ([facility] st Contact Info) Description 09/15/2024 Telephone [facility] 230 [place] [address] Cathy Gerber ANP 230 [place] [address] Referral Social History Tobacco Use Types Packs/Day [...] if Possible to get a Doctor in [place] Instead of [place]. Contact pt at [phone] documented in this encounter Plan of Treatment Upcoming Encounters Date Type Department Care Team (Late st Contact Info) Description 06/15/2025 2:00 PM EST Office Visit [facility] [address] [place], [place] [phone] Cathy Gerber ANP 230 [place] [address] documented as of this encounter Visit Diagnoses Not on filedocumented in this encounter Additional Health Concerns Assessment Noted Time PHQ-9 Depression Total Score: 0 09/12/19 24 10:17 AM EST documented as of this encounter Care Teams Photonics Technician Relationship Specialty Start Date End Date Cathy Gerber ANP 230 [place] [address] PCP - General Family Medicine 06/28/22 documented as of this encounter
--- OUTSIDE RECORDS SUMMARY | 2025-03-29 18:32 | XMS_ITS | Encounter Summary ---
Author Organization [email or web address] [facility] Address [address] [place] [address] 7t [place] [address] Care Team Providers Care Mail Machine Operator Name Role Phone Cathy Gerber Primary Care Provider [phone] Encounter Details Date Type Department Care Team (Late st Contact Info) Description 07/02/2022 Orders Only [facility] MEDICINE [address] [place] [address] Jennifer Steel, KISHOR [address] [place] [address] Social History Tobacco Use Types Packs/Day Years [...] Description 06/15/2025 2:00 PM EST Office Visit [facility] [address] [place] [address] Cathy Gerber ANP 230 [place] [address] documented as of this encounter Visit Diagnoses Not on filedocumented in this encounter Care Teams Mail Machine Operator Relationship Specialty Start Date End Date Cathy Gerber ANP [address] [place] [address] PCP - General Family Medicine 06/28/22 documented as of this encounter
--- OUTSIDE RECORDS SUMMARY | 2025-03-29 18:32 | XMS_ITS | Encounter Summary ---
Author Organization [employer] Address 75 [facility] 7t [place] [address] Care Team Providers Care Senior Market Intelligence Consultant Name Role Phone Cathy Gerber Primary Care Provider [phone] Reason for Visit * Reason Comments Care Coordination SDOH Encounter Details Date Type Department Care Team (Latest Contact Info) Description 03/29/2025 Patient Outreach [facility]INE [address] [place] [address] Cathy Gerber ANP 230 [place] [address] Care Coordination (SDOH) Social History Tobacco Use Types Packs/Day Years [...] as of this encounter Progress Notes * Lisha Ashley - 03/29/2025 10:17 AM EDT CHW Lisha Ashley introduced the HRSN Program. Program details explained to the patient. Patient agreeable to participate in the program. Referral placed for HRSN program. CHW will follow up with patient within 10 days. documented in this encounter Plan of Treatment Upcoming Encounters Date Type Department Care Team (Late st Contact Info) Description 06/15/2025 2:00 PM EST Office Visit [facility] MED[facility] [address] [place] [address] Cathy Gerber ANP 230 [place] [address] documented as of this encounter Visit Diagnoses Not on filedocumented in this encounter Additional Health Concerns Assessment Noted Time PHQ-9 Depression Total Score: 8 02/25/20 25 1:40 PM EDT documented as of this encounter Care Teams Senior Market Intelligence Consultant Relationship Specialty Start Date End Date Cathy Gerber ANP [address] [place] [address] PCP - General Family Medicine 06/28/22 documented as of this encounter
--- OUTSIDE RECORDS SUMMARY | 2025-03-29 18:32 | XMS_ITS | Encounter Summary ---
Author Organization [employer] Address 75 [facility] 7t [place] [address] Care Team Providers Care Enginehouse Brakeman Name Role Phone Cathy Gerber Primary Care Provider [phone] Reason for Visit * Reason Comments Med Refill Encounter Details Date Type Department Care Team ([facility] st Contact Info) Description 03/09/2024 Refill [facility] [address] [place] [address] Lilian Meyers, ERIKA 230 [place] [address] Social History Tobacco Use Types Packs/Day Years [...] Description 06/15/2025 2:00 PM EST Office Visit [facility] [address] [place] [address] Cathy Gerber ANP 230 [place] [address] documented as of this encounter Visit Diagnoses Not on filedocumented in this encounter Additional Health Concerns Assessment Noted Time PHQ-9 Depression Total Score: 0 09/12/19 24 10:17 AM EST documented as of this encounter Care Teams Enginehouse Brakeman Relationship Specialty Start Date End Date Cathy Gerber ANP 230 [place] [address] PCP - General Family Medicine 06/28/22 documented as of this encounter
--- OUTSIDE RECORDS SUMMARY | 2025-03-29 18:32 | XMS_ITS ---
Author Organization [employer] Address 75 [facility] 7t [place] [address] Care Team Providers Care Digital Campaign Manager Name Role Phone Cathy Gerber Primary Care Provider CHW Complex Status:Enrolled (Active) Start date:11/17/2024 Enrollment date:02/24/2025 Enrollment reason:ADT Feed Overview ED- Pt went to [facility] ED on 11/16/24. Please outreach for enrollment. Case Team Name Relationship Phone Lisha Ashley(Responsible Staff) [phone] Continued Care and Services Coordination
--- OUTSIDE RECORDS SUMMARY | 2025-03-29 18:32 | XMS_ITS | Encounter Summary ---
Author Organization [employer] Address [address] [place] [address] 7t [place] [address] Care Team Providers Care Corporate Events Director Name Role Phone Cathy Gerber Primary Care Provider Encounter Details Date Type Department Care Team (Late st Contact Info) Description 11/06/2022 Orders Only [facility] MED[facility]INE [address] [place] [phone] Cathy Gerber ANP 230 [place], [place] [phone] Social History Tobacco Use Types Packs/Day Years [...] Description 06/15/2025 2:00 PM EST Office Visit [facility] [address] [place] [phone] Cathy Gerber ANP 230 [place], [place] [phone] documented as of this encounter Visit Diagnoses Not on filedocumented in this encounter Care Teams Corporate Events Director Relationship Specialty Start Date End Date Cathy Gerber ANP 230 [place] [address] PCP - General Family Medicine 06/28/22 documented as of this encounter
--- OUTSIDE RECORDS SUMMARY | 2025-03-29 18:32 | XMS_ITS | Encounter Summary ---
Author Organization [employer] Address 75 [facility] 7t [place] [address] Care Team Providers Care Signs Sales Representative Name Role Phone Cathy Gerber Primary Care Provider [phone] Reason for Visit * Reason Onset Date Comments Med Refill 08/07/2023 Encounter Details Date Type Department Care Team ([facility] st Contact Info) Description 08/07/2023 Telephone [facility]INE [address] [place] [address] Cathy Gerber ANP 230 [place] [address] Med Refill Social History Tobacco Use Types [...] 2:46 PM EST Medication was sent to [id number] on 06/28/23 with 5 refills. [...] 06/15/2025 2:00 PM EST Office Visit [facility] [address] [place] [address] Cathy Gerber ANP [address] [place] [address] documented as of this encounter Visit Diagnoses Not on filedocumented in this encounter Care Teams Signs Sales Representative Relationship Specialty Start Date End Date Cathy Gerber ANP [address] [place] [address] PCP - General Family Medicine 06/28/22 documented as of this encounter
--- OUTSIDE RECORDS SUMMARY | 2025-03-29 18:32 | XMS_ITS | Encounter Summary ---
Author Organization [employer] Address [address] [place] [address] 7t [place] [address] Care Team Providers Care Head Girls Golf Coach Name Role Phone Cathy Gerber Primary Care Provider Encounter Details Date Type Department Care Team (Late Contact Info) Description 08/30/2022 Abstract [facility] MEDICINE [address] [place] [address] Cathy Gerber ANP [address] [place] [address] Social History Tobacco Use Types Packs/Day Years [...] Description 06/15/2025 2:00 PM EST Office Visit [facility] MED[facility]INE [address] [place] [address] Cathy Gerber ANP 230 [place] [address] documented as of this encounter Visit Diagnoses Not on filedocumented in this encounter Care Teams Head Girls Golf Coach Relationship Specialty Start Date End Date Cathy Gerber ANP [address] [place] [address] PCP - General Family Medicine 06/28/22 documented as of this encounter
--- OUTSIDE RECORDS SUMMARY | 2025-03-29 18:32 | XMS_ITS | Encounter Summary ---
Author Organization [employer] Address [address] [place] [address] 7t [place] [address] Care Team Providers Care Precast Molder Name Role Phone Jennifer Mckenize DO Primary Care Provider [phone] Cathy Gerber Primary Care Provider [phone] Encounter Details Date Type Department Care Team (Latest Contact Info) Description 05/18/2021 Abstract [facility] CONVERSIONS Dental, Provider, DDS Social History [...] Description 06/15/2025 2:00 PM EST Office Visit [facility] MEDICINE 230 [place] [address] Cathy Gerber ANP 230 [place] [address] documented as of this encounter Visit Diagnoses Not on filedocumented in this encounter Care Teams Precast Molder Relationship Specialty Start Date End Date Jennifer Mckenzie DO [address] [place] [address] PCP - General Family Medicine 04/06/22 06/27/22 Cathy Gerber ANP [address] [place] [address] PCP - General Family Medicine 06/28/22 documented as of this encounter
--- OUTSIDE RECORDS SUMMARY | 2025-03-29 18:32 | XMS_ITS | Encounter Summary ---
Author Organization [employer] Address [address] [place] [address] 7t [place] [address] Care Team Providers Care Hiv/Aids Care Nurse Name Role Phone Cathy Gerber Primary Care Provider Encounter Details Date Type Department Care Team (Late Contact Info) Description 09/12/2022 Abstract [facility] MEDICINE [address] [place] [address] Cathy Gerber ANP [address] [place] [address] Social History Tobacco Use Types Packs/Day Years [...] 2:00 PM EST Office Visit [facility] MEDICINE [address] [place] [address] Cathy Gerber ANP 230 [place] [address] documented as of this encounter Visit Diagnoses Not on filedocumented in this encounter Care Teams Hiv/Aids Care Nurse Relationship Specialty Start Date End Date Cathy Gerber ANP [address] [place] [address] PCP - General Family Medicine 06/28/22 documented as of this encounter
--- OUTSIDE RECORDS SUMMARY | 2025-03-29 18:33 | XMS_ITS | Encounter Summary ---
Author Organization [employer] Address 75 [facility] 7t [place] [address] Care Team Providers Care Rose Grading Supervisor Name Role Phone Cathy Gerber Primary Care Provider Reason for Visit * Reason Comments Med Refill Encounter Details Date Type Department Care Team ([facility] st Contact Info) Description 07/08/2024 Refill [facility] 230 [place], [place] [phone] Sudhakar Bustillos, IRWIN [address] [place] [address] Social History Tobacco Use Types Packs/Day Years [...] Description 06/15/2025 2:00 PM EST Office Visit [facility] [address] [place] [address] Cathy Gerber ANP 230 [place] [address] documented as of this encounter Visit Diagnoses Not on filedocumented in this encounter Additional Health Concerns Assessment Noted Time PHQ-9 Depression Total Score: 0 09/12/19 10:17 AM EST documented as of this encounter Care Teams Rose Grading Supervisor Relationship Specialty Start Date End Date Cathy Gerber ANP [address] [place] [address] PCP - General Family Medicine 06/28/22 documented as of this encounter
--- OUTSIDE RECORDS SUMMARY | 2025-03-29 18:33 | XMS_ITS | Clinical Summary ---
Author Organization [employer] [facility] ity Address [address] [place] [address] Care Team Providers Care Turning Machine Operator Name Role Phone Cathy Gerber NP Primary Care Provider [phone] Social History Tobacco Use Types Packs/Day Years [...] 5 Years) and At-Risk Patients (6 to 49 Years) (1 of 2 - PCV) 1996 Cervical Cancer Screening: P ap Smear 1998 Cholesterol Screening (Lipid Panel) 02/11/2024 Colorectal Cancer Screening: Colonoscopy 02/11/2024 HIV Screening 02/11/2024 Hepatitis C Screening 02/11/2024 Social Influencers of Health Screening 02/11/2024 Diabetes: Annual Urine Albumin-Creatinine Ratio (uACR) 05/03/2024 Diabetes: Blood Sugar Contro l Test (HGBA1C) 05/03/2024 Hypertension/CHF/CAD Annual BMP Blood Test 05/03/2024 Depression Screening 07/22/2024 COVID-19 Vaccine ( - 2023-2 5 season) 2025 Influenza Vaccine (#1) 2025 HIB Vaccines Aged Out No longer [...] age to complete this topic Care Teams Turning Machine Operator Relationship Specialty Start Date End Date Cathy Gerber NP [address] [place] [phone] PCP - General 09/19/23
--- OUTSIDE RECORDS SUMMARY | 2025-03-29 18:33 | XMS_ITS | Encounter Summary ---
Author Organization [employer] Address [address] [facility] 7t [place] [address] Care Team Providers Care Vp Care Management Name Role Phone Cathy Gerber Primary Care Provider [phone] Reason for Visit * Reason Onset Date Comments Nurse Triage 02/17/2025 No Show 02/17/2025 No show sick on site Encounter Details Date Type Department Care Team ([facility] st Contact Info) Description 02/17/2025 Telephone [facility] MED[facility]INE [address] [place] [address] Cathy Gerber ANP [address] [place] [address] Nurse Triage; No Show (No show sick on site ) Social History Tobacco Use Types Packs/Day Years [...] encounter Miscellaneous Notes * Telephone Encounter - Rita Ashley - 02/19/2025 3:25 PM EDT No show sick on site * Telephone Encounter - Rayne Dahl RN - 02/17/2025 12:14 PM EDT Triage call Pt calling regarding hearing loss. Pt reports has been happening for years in the left ear and now there is a humming sound in the right ear which makes watching television difficult andPt has had to change ring tone on phone to a siren type noise to be able to hear the phone ring. Ptdid have a referral to audiology in [facility] 10/31/23 with apt 02/05/24 which was missed. Pt is requesting for another referral. Pt has to book transportatiion. ASK apt with [facility] Sharon 02/19/25 @ 300pm. Pt agrees with disposition. Insurance is verified as active prior to booking. Protocol Used: Hearing Loss or Change (Adult) Protocol-Based Disposition: See in Office or Video Visit within 3 Days Positive Triage Questions: * Decreased hearing in 1 ear and gradual onset * Tinnitus (ringing, hissing, beating) and only or mainly in 1 ear * All higher-acuity triage questions were negative Care Advice Discussed: * Reasons To Call Back - Decreased hearing occurs again - Earache - You become worse * Telephone Encounter - Seven Sharp - 02/17/2025 11:51 AM EDT Symptom: Hearing Loss Outcome: Schedule an urgent appointment (within 1 hour) or talk to a nurse or provider soon Reason: Getting worse The caller accepted this outcome. Contact pt at [phone] documented in this encounter Plan of Treatment Upcoming Encounters Date Type Department Care Team ([facility] st Contact Info) Description 06/15/2025 2:00 PM EST Office Visit [facility] MEDICINE [address] [place] [address] Cathy Gerber ANP [address] [place] [address] documented as of this encounter Visit Diagnoses Not on filedocumented in this encounter Additional Health Concerns Assessment Noted Time PHQ-9 Depression Total Score: 20 025 3:28 PM EDT documented as of this encounter Care Teams Vp Care Management Relationship Specialty Start Date End Date Cathy Gerber ANP [address] [place] [address] PCP - General Family Medicine 06/28/22 documented as of this encounter
--- OUTSIDE RECORDS SUMMARY | 2025-03-29 18:33 | XMS_ITS | Encounter Summary ---
Author Organization [employer] Address [address] [place] [address] 7t [place] [address] Care Team Providers Care Nursing Educator Name Role Phone Cathy Gerber Primary Care Provider [phone] Reason for Visit * Reason Comments Med Refill Encounter Details Date Type Department Care Team (Late st Contact Info) Description 11/23/2022 Refill [facility] MEDICINE [address] [place] [phone] Cathy Gerber ANP 230 [place], [place] [phone] Chronic pain syndrome Social History Tobacco Use [...] Office Visit [facility] MEDICINE [address] [place] [address] Cathy Gerber ANP 230 [place], [place] [phone] documented as of this encounter Visit Diagnoses Diagnosis Chronic pain syndrome documented in this encounter Care Teams Nursing Educator Relationship Specialty Start Date End Date Cathy Gerber ANP 230 [place] [address] PCP - General Family Medicine 06/28/22 documented as of this encounter
--- OUTSIDE RECORDS SUMMARY | 2025-03-29 18:33 | XMS_ITS | Encounter Summary ---
Author Organization [employer] Address [address] [facility] [address] [place] [address] Care Team Providers Care Piecer Up Name Role Phone Cathy Gerber Primary Care Provider [phone] Reason for Visit * Reason Comments Med Refill Encounter Details Date Type Department Care Team ([facility] st Contact Info) Description 09/19/2023 Refill [facility] [address] [place], [place] [phone] Cathy Gerber ANP [address] [place] [address] Seizure disorder (CMS/HCC) Social History Tobacco Use [...] Description 06/15/2025 2:00 PM EST Office Visit [facility] [address] [place] [phone] Cathy Gerber ANP [address] [place] [address] documented as of this encounter Visit Diagnoses Diagnosis Seizure disorder (CMS/HCC) Unspecified epilepsy without mention of intractable epilepsy documented in this encounter Additional Health Concerns Assessment Noted Time PHQ-9 Depression Total Score: 0 09/12/19 24 10:17 AM EST documented as of this encounter Care Teams Piecer Up Relationship Specialty Start Date End Date Cathy Gerber ANP [address] [place] [id number] PCP - General Family Medicine 06/28/22 documented as of this encounter
--- OUTSIDE RECORDS SUMMARY | 2025-03-29 18:33 | XMS_ITS | Encounter Summary ---
Author Organization [employer] Address [address] [facility] 7[address] [place] [address] Care Team Providers Care Comprehensive Ophthalmologist Name Role Phone Cathy Gerber Primary Care Provider [phone] Reason for Visit * Reason Onset Date Comments Prior Authorization 10/07/2023 Encounter Details Date Type Department Care Team ([facility] st Contact Info) Description 10/07/2023 Telephone [facility] [address] [place], [place] [phone] Cathy Gerber ANP [address] [place] [address] Prior Authorization Social History Tobacco Use Types [...] Vasquez - 10/16/2023 1:55 PM EDT SUPERVISOR DYER SPOKE WITH PATIENT NOTIFIED SHE WAS APPROVE FOR THE [employer] 2 READER AND SENSOR, ADVICE TO CALL [...] Description 06/15/2025 2:00 PM EST Office Visit [facility] [address] [place] [address] Cathy Gerber ANP [address] [place] [address] documented as of this encounter Visit Diagnoses Not on filedocumented in this encounter Additional Health Concerns Assessment Noted Time PHQ-9 Depression Total Score: 0 09/12/19 24 10:17 AM EST documented as of this encounter Care Teams Comprehensive Ophthalmologist Relationship Specialty Start Date End Date Cathy Gerber ANP [address] [place] [phone] PCP - General Family Medicine 06/28/22 documented as of this encounter
--- OUTSIDE RECORDS SUMMARY | 2025-03-29 18:33 | XMS_ITS | Encounter Summary ---
Author Organization [employer] Address [address] [facility] [address] [place] [address] Care Team Providers Care Pole Setter Name Role Phone Cathy Gerber Primary Care Provider [phone] Reason for Visit * Reason Onset Date Comments Care Management 12/16/2024 Encounter Details Date Type Department Care Team ([facility] st Contact Info) Description 12/16/2024 Telephone [facility] [address] [place] [address] Cathy Gerber ANP [address] [place] [address] Care Management Social History Tobacco Use Types Packs/Day Years [...] Answer Date Recorded Internet Access Q1 Yes 12/15/2024 Internet Access Q2 I do not want or need it 11/20 Comments No Sex and Gender Information Value Date Recorded Sex Assigned at Female 05/21/2022 10:16 AM EDT Legal Sex Female 10:16 AM EDT Gender Identity Female 05/21/2022 10:16 AM EDT Sexual Orientation Straight 05/21/2022 10 :16 AM EDT documented as of this encounter Miscellaneous Notes * Telephone Encounter - Marissa Neal - 12/16/2024 2:03 PM EDT Tc from pt returning Jaya Uribe RN phone call. documented in this encounter Plan of Treatment Upcoming Encounters Date Type Department Care Team (Late st Contact Info) Description 06/15/2025 2:00 PM EST Office Visit [facility] [address] [place] [address] Cathy Gerber ANP [address] [place] [address] documented as of this encounter Visit Diagnoses Not on filedocumented in this encounter Additional Health Concerns Assessment Noted Time PHQ-9 Depression Total Score: 20 025 3:28 PM EDT documented as of this encounter Care Teams Pole Setter Relationship Specialty Start Date End Date Cathy Gerber ANP [address] [place] [address] PCP - General Family Medicine 06/28/22 documented as of this encounter
[2025-03-29 19:28] VITALS: BP 132/82; PULSE 74; RESP 16; TEMP 36.6; O2SAT 96
[2025-04-01 01:03] LABS: Levetiracetam Keppra 46.3 mcg/mL (6.0-46.0)
== END 2025-03-29 19:30 | disposition home or self-care (01) ==
PROVIDERS: Physician Assistant; Emergency Provider Emergency Medicine Emergency Medical Services; PCP Nurse Practitioner Primary Care
DX: G40.909 Epilepsy, unspecified, not intractable, without status epilepticus (principal); E11.9 Type 2 diabetes mellitus without complications; J45.909 Unspecified asthma, uncomplicated; Z79.899 Other long term (current) drug therapy; I10 Essential (primary) hypertension; Z79.4 Long term (current) use of insulin
CPT/HCPCS: 36415; 80048; 80177; 81001; 83735; 85025; 93005; 99283; 99284

== ENCOUNTER → 2025-03-29 15:05 | Outpatient (BNV) | payer MEDICAID, SELFPAY | PROVIDERS: Emergency Provider Emergency Medicine Emergency Medical Services; PCP Nurse Practitioner Primary Care; Visit Provider Internal Medicine Cardiovascular Disease | DX: R56.9 Unspecified convulsions (principal) | CPT/HCPCS: 93010 ==